=== PATIENT | female | born 1965 | race Caucasian/White ===

== ENCOUNTER 2016-06-24 10:53 | Inpatient (IN) | payer BC ==
[~2016-06-24] VITALS: Ht 157.5 cm; Wt 99.5 kg
[~2016-06-24 10:53] MED LIST: ACET325T33 PO; APIX5TAB PO; APR50 PO; ASPI81TA3 PO; ATOR20TA38 PO; CLON0.2T12 PO; DOCU-144 PO; FURO-109 PO; GABA300C PO; METO-407 PO; NOVO3I SC; PANT40TA4 PO; PARO20TA58 PO; REPA1TAB14 PO; SEVE800T10 PO; SITA50TA2 PO
[2016-06-24 11:00] VITALS: Ht 157.5 cm; Wt 99.5 kg
[2016-06-24] MEDS ORDERED: SOD CHLORIDE 0.9% 1,000 ML IV STA (11:18)
[2016-06-24 11:48] LABS: BASOPHIL # 0.1 10^3/ul (0.0-0.1); BASOPHILS % 0.8 % (0.0-2.0); CONDITION 1; EOSINOPHILS # 0.5 10^3/ul (0.0-0.5); EOSINOPHILS % 5.1 % (0.0-7.0); HEMATOCRIT 32.2 % (37.0-47.0); HEMOGLOBIN 10.9 g/dl (12.0-16.0); LYMPHOCYTES # 1.9 10^3/ul (0.8-2.9); LYMPHOCYTES % 20.4 % (15.0-51.0); MEAN CORPUSCULAR HEMOGLOBIN 30.4 pg (29.0-33.0); MEAN CORPUSCULAR HGB CONC 33.8 g/dl (32.0-37.0); MEAN CORPUSCULAR VOLUME 89.7 fl (82.0-101.0); MEAN PLATELET VOLUME 7.1 fl (7.4-10.4); MONOCYTE # 0.5 10^3/ul (0.3-0.9); MONOCYTES % 5.8 % (0.0-11.0); NEUTROPHIL # 6.4 10^3/ul (1.6-7.5); NEUTROPHILS % 67.9 % (39.0-77.0); PLATELET COUNT 318 10^3/UL (140-440); RED BLOOD COUNT 3.59 10^6/ul (4.20-5.40); RED CELL DISTRIBUTION WIDTH 13.9 % (11.5-14.5); UNCORRECTED WBC 9.4 10^3/ul (4.8-10.8); WHITE BLOOD COUNT 9.4 10^3/ul (4.8-10.8)
[2016-06-24 11:52] LABS: ADD UMIC YES; URINE BILIRUBIN (Dip) NEGATIVE (NEGATIVE); URINE BLOOD (Dip) 2+ (NEGATIVE); URINE COLOR LT. YELLOW (YELLOW); URINE KETONES (Dip) NEGATIVE (NEGATIVE); URINE LEUKOCYTE ESTERASE (Dip) TRACE (NEGATIVE); URINE NITRITE (Dip) NEGATIVE (NEGATIVE); URINE TOTAL PROTEIN (Dip) 4+ (NEGATIVE); URINE UROBILINOGEN (Dip) 0.2 E.U./dL (0.1-1.0)
[2016-06-24 11:59] LABS: ALBUMIN 3.6 g/dl (3.3-4.9); CHLORIDE 109 mmol/L (97-110)
[2016-06-24 12:00] LABS: POTASSIUM 4.7 mmol/L (3.5-5.1); SODIUM 143 mmol/L (135-144)
[2016-06-24 12:02] LABS: ALBUMIN/GLOBULIN RATIO 1.24; ANION GAP 16 (8-16); BILIRUBIN,INDIRECT 0.1 mg/dl (0-1.1); BILIRUBIN,TOTAL 0.1 mg/dl (0.2-1.3); CARBON DIOXIDE 23 mmol/L (21-31); CREATININE 3.75 mg/dl (0.44-1.00); TOTAL PROTEIN 6.5 g/dl (6.1-8.1)
[2016-06-24 12:03] LABS: ALANINE AMINOTRANSFERASE 32 IU/L (13-69); ALKALINE PHOSPHATASE 115 IU/L (42-121); ASPARTATE AMINO TRANSFERASE 26 IU/L (15-46); BLOOD UREA NITROGEN 59 mg/dl (7-20); CALCIUM 8.8 mg/dl (8.4-10.2); GLUCOSE 127 mg/dl (70-220)
[2016-06-24] MEDS ORDERED: ATOR80TA75 PO (12:11)
[2016-06-24] MEDS ORDERED: ZOLP5TAB6 PO (12:15)
--- NOTE | 2016-06-24 12:15 | RADRPT ---
PROCEDURE: XR Chest. CLINICAL INDICATION: Abdominal pain TECHNIQUE: Chest PA COMPARISON: 09/11/2015 FINDINGS: The mediastinal structures are unremarkable. There is calcification of the thoracic aorta (consiste nt with atherosclerosis). The heart is normal in size and configuration. The pulmonary vascularity is normal. The lung vargas are unremarkable. No consolidation is identified. The pleural spaces are unremarkable. The osseous structures are unremarkable. IMPRESSION: Calcification of the thoracic aorta (consistent with atherosclerosis). No evidence for active cardiopulmonary disease. RPTAT: HGDB .Joel Alicia MD, MD Date Time Electronically viewed and signed by .Joel Alicia MD, on 06/24/2016 12:15 .B/
[2016-06-24 12:16] LABS: TROPONIN-I < 0.012 ng/ml (0.00-0.12)
[2016-06-24] MEDS ORDERED: SERT50TA PO (12:16)
[2016-06-24] MEDS ORDERED: TOLT2TAB5 PO (12:16)
[2016-06-24] MEDS ORDERED: APR50 PO (12:23)
[2016-06-24] MEDS ORDERED: NICARDipine HCL 30 MG CAPSULE PO ONE (13:00)
--- NOTE | 2016-06-24 14:17 | ERA ---
ER Documentation Chief Complaint Date/Time DATE: 06/24/16 TIME: 14:14 Chief Complaint send for further labs abn bun and creatini , feels tired HPI 50-year-old female who is sent for evaluation of elevated creatinine. The patient has no complaints. She states a history of uncontrolled hypertension. No prior renal disease though her EMR reports creatinine in the 2-1/2 range. A prescription from the primary provider shows most recent creatinine less than 1. The patient describes generalized malaise, she states normal urine output she denies any fevers chills chest pain or shortness of breath no abdominal pain. No headache or vision changes. ROS All systems reviewed and are negative except as per history of present illness. Medications Home Meds Active Scripts Sitagliptin* (Januvia*) 50 Mg Tab, 50 MG PO DAILY for 30 Days, TAB Prov:REGCHAMP LERMA 09/06/15 Sevelamer Hcl* (Renagel*) 800 Mg Tab, 800 MG PO WITH MEALS for 30 Days, TAB Prov:REGCHAMP LERMA 09/06/15 Repaglinide* (Prandin*) 1 Mg Tab, 0.5 MG PO AC MEALS for 30 Days, TAB Prov:REGCHAMP LERMA 09/06/15 Pantoprazole* (Pantoprazole*) 40 Mg Tabec, 40 MG PO DAILY@06 for 30 Days Prov:CHAMP PETER 09/06/15 Metoprolol Tartrate* (Lopressor*) 100 Mg Tab, 100 MG PO BID for 30 Days, TAB Prov:REGCHAMP LERMA 09/06/15 Gabapentin* (Neurontin*) 300 Mg Cap, 300 MG PO TID for 30 Days, CAP Prov:REGCHAMP LERMA 09/06/15 Furosemide* (Lasix*) 40 Mg Tab, 40 MG PO 06,12,18 for 30 Days, TAB Prov:REGCHAMP LERMA 09/06/15 Apixaban* (Eliquis*) 5 Mg Tablet, 5 MG PO BID for 30 Days, TAB Prov:REGCHAMP LERMA 09/06/15 Aspirin (Aspirin) 81 Mg Chew, 162 MG PO DAILY for 30 Days, TAB Prov:REGCHAMP LERMA 09/06/15 Reported Medications Hydralazine Hcl* (Hydralazine Hcl*) 50 Mg Tab, 50 MG PO TID, #90 TAB 06/24/16 Tolterodine Tartrate* (Tolterodine Tartrate*) 2 Mg Tablet, 2 MG PO BID, #60 TAB 06/24/16 Sertraline Hcl* (Zoloft*) 50 Mg Tablet, 50 MG PO DAILY, #30 TAB 06/24/16 Zolpidem Tartrate* (Zolpidem Tartrate*) 5 Mg Tablet, 5 MG PO QHS Y for INSOMNIA , #30 TAB 06/24/16 Atorvastatin* (Atorvastatin*) 80 Mg Tablet, 80 MG PO QHS, #30 TAB 06/24/16 Discontinued Reported Medications Docusate Sodium* (Colace*) 100 Mg Capsule, 100 MG PO TID, #60 CAP 09/04/15 Discontinued Scripts Acetaminophen* (Tylenol*) 325 Mg Tab, 650 MG PO Q6H Y for PAIN LEVEL 1-3 OR FEVER for 30 Days, TAB Prov:REGCHAMP LERMA 09/06/15 Paroxetine Hcl* (Paxil*) 20 Mg Tab, 40 MG PO DAILY for 30 Days, TAB Prov:CHAMP PETER 09/06/15 Insulin Aspart* (Novolog Insulin Pen*) 100 Unit/Ml Soln, 0 UNIT SC WITH MEALS BEDTIME for 30 Days Prov:CHAMP PETER 09/06/15 Insulin Aspart* (Novolog Insulin Pen*) 100 Unit/Ml Soln, 3 UNIT SC WITH MEALS for 30 Days Prov:CHAMP PETER 09/06/15 Hydralazine Hcl* (Hydralazine Hcl*) 50 Mg Tab, 50 MG PO QID for 30 Days, TAB Prov:CHAMP PETER 09/06/15 Clonidine Hcl* (Catapres*) 0.2 Mg Tab, 0.2 MG PO Q4H Y for sbp>160 for 30 Days, TAB Prov:REGIDOCHAMP Mason 09/06/15 Atorvastatin Calcium* (Atorvastatin Calcium*) 20 Mg Tab, 80 MG PO HS for 30 Days , TAB Prov:CHAMP PETER 09/06/15 Allergies Allergies: Coded Allergies: codeine (Verified Allergy, Mild, 06/24/16) PMhx/Soc History of Surgery: No Anesthesia Reaction: No Hx 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 Disorder: Yes (stroke. ANXIETY. DEPRESSION. ) Hx Respiratory Disorders: Yes (PNEUMONIA. ASTHMA) Hx Cardiac Disorders: Yes (HTN. HYPERLIPIDEMIA. OH. SVT. CAD) Hx Psychiatric Problems: No Hx Alcohol Use: No Hx Substance Use: No Hx Tobacco Use: No Smoking Status: Never smoker FmHx Family History: No diabetes Physical Exam Vitals Vital Signs Date Time Temp Pulse Resp B/P Pulse Ox O2 Delivery O2 Flow Rate FiO2 06/24/16 13:49 139/71 06/24/16 12:40 98.1 67 18 224/97 99 Room Air 06/24/16 11:00 98.1 67 20 213/93 99 Physical Exam General: Well developed, well nourished, no acute distress Head: Normocephalic, atraumatic. Eyes: Pupils equally reactive, EOM intact ENT: Moist mucous membranes Neck: Supple, no lymphadenopathy Respiratory: Lungs clear bilaterally, no distress Cardiovascular: RRR, no murmurs, rubs, or gallops Abdominal: Soft, non-tender, non-distended, no peritoneal signs : Deferred MSK: No edema, no unilateral swelling, 5/5 strength Neurologic: Alert and oriented, moving all extremities, normal speech, no focal weakness, no cerebellar signs Skin: No rash Psych: Normal mood Result Diagram: 06/24/16 1125 06/24/16 1125 Results 24 hrs Laboratory Tests Test 06/24/16 11:25 Alanine Aminotransferase (ALT/SGPT) 32IU/L Albumin 3.6g/dl Albumin/Globulin Ratio 1.24 Alkaline Phosphatase 115IU/L Anion Gap 16 Aspartate Amino Transf (AST/SGOT) 26IU/L Basophils # 0.110^3/ul Basophils % 0.8% Blood Morphology Comment Blood Urea Nitrogen 59mg/dl Calcium Level 8.8mg/dl Carbon Dioxide Level 23mmol/L Chloride Level 109mmol/L Creatinine 3.75mg/dl Direct Bilirubin 0.00mg/dl Eosinophils # 0.510^3/ul Eosinophils % 5.1% Globulin 2.90g/dl Glucose Level 127mg/dl Hematocrit 32.2% Hemoglobin 10.9g/dl Indirect Bilirubin 0.1mg/dl Lipase 108U/L Lymphocytes # 1.910^3/ul Lymphocytes % 20.4% Mean Corpuscular Hemoglobin 30.4pg Mean Corpuscular Hemoglobin Concent 33.8g/dl Mean Corpuscular Volume 89.7fl Mean Platelet Volume 7.1fl Monocytes # 0.510^3/ul Monocytes % 5.8% Neutrophils # 6.410^3/ul Neutrophils % 67.9% Nucleated Red Blood Cells # 0.010^3/ul Nucleated Red Blood Cells % 0.0/100WBC Platelet Count 01803^3/UL Potassium Level 4.7mmol/L Red Blood Count 3.5910^6/ul Red Cell Distribution Width 13.9% Sodium Level 143mmol/L Total Bilirubin 0.1mg/dl Total Protein 6.5g/dl Troponin I < 0.012ng/ml Urine Bilirubin NEGATIVE Urine Clarity CLEAR Urine Color LT. YELLOW Urine Epithelial Cells RARE Urine Glucose 0.1%% Urine Hemoglobin 2+ Urine Ketones NEGATIVE Urine Leukocyte Esterase TRACE Urine Microscopic RBC 5-10/HPF Urine Microscopic WBC 2-5/HPF Urine Nitrite NEGATIVE Urine Specific [place] 1.020 Urine Total Protein 4+ Urine Urobilinogen 0.2 E.U./dL Urine pH 6.0 White Blood Count 9.410^3/ul Current Medications Medications (Trade) Dose Ordered Sig/Zenobia Route PRN Reason Start Time Stop Time Status Last Admin Dose Admin Sodium Chloride (NS) 1,000 ml @ 1,000 mls/hr Q1H STAT IV 06/24/16 11:18 06/24/16 12:17 DC 06/24/16 11:58 Nicardipine HCl (Cardene) 30 mg ONCE ONCE PO 06/24/16 13:00 06/24/16 13:01 DC 06/24/16 12:48 Ondansetron HCl (Zofran Inj) 4 mg BRIDGE ORDER PRN IV NAUSEA AND/OR VOMITING 06/24/16 14:30 06/25/16 14:29 Acetaminophen (Tylenol Tab) 650 mg ER BRIDGE PRN PO MILD PAIN/FEVER 06/24/16 14:30 06/25/16 14:29 Procedures/MDM EKG, MONITORS, & DIAGNOSTIC IMAGING: EKG: I reviewed and interpreted a 12-lead EKG. Rhythm: Normal sinus rhythm Ectopy: None Intervals: No abnormalities ST segments: No elevations or depressions T waves: No contiguous inversions Chest x-ray: I reviewed and interpreted a 1 view of the chest Mediastinum: No enlargement Cardiac silhouette: No cardiomegaly Airspace: Clear lung vargas bilaterally without evidence of pneumothorax Bones: No evidence of fracture LAB INTERPRETATION: Elevated creatinine and BUN consistent with intrarenal renal failure negative troponin MEDICAL DECISION MAKING: The patient presents with elevated creatinine. She also has hypertension, she is mostly asymptomatic. This is very consistent with likely hypertensive renal disease. The patient will benefit from inpatient hospitalization, fluid resuscitation, blood pressure control and medication optimization. She has no hyperkalemia no volume overload and does not appear to require emergent dialysis. ER COURSE: Blood pressure reduction obtained with Cardene orally. The patient remains asymptomatic. The patient does have evidence of hypertensive renal disease with proteinuria. I kept the patient and/or family informed of laboratory and diagnostic imaging results throughout the emergency room course. DISPOSITION PLAN: She is stable for medical surgical admission given no chest pain, no endorgan dysfunction of the heart. CONSULTATION: Accepting care team and consultations: I discussed the current laboratory data, diagnostic imaging and emergency care provided. Admitting team: Dr. Andrade Admitting team indication: Insurance directed Departure Diagnosis: Primary Impression: Acute renal failure Qualified Code: N17.9 - Acute renal failure, unspecified acute renal failure type Additional Impression: Hypertensive urgency Condition: Stable KRISTEN PRINCE MD Jun 24, 2016 14:17
[2016-06-24] MEDS ORDERED: ONDANSETRON 4 MG INJ IV PRN ×2 (14:30→15:00)
[2016-06-24] MEDS ORDERED: ACETAMINOPHEN 325 MG TAB PO PRN ×2 (14:30→15:00)
[2016-06-24] MEDS ORDERED: morphine 2 MG INJ IV PRN (15:00)
[2016-06-24] MEDS ORDERED: MAGNESIUM HYDROXIDE 30ML CUP PO PRN (15:00)
[2016-06-24] MEDS ORDERED: ZOLPIDEM 5 MG TAB PO PRN (15:00)
[2016-06-24] MEDS ORDERED: NA PHOSPHATE/BIPHOS 133 ML ENEMA PR PRN (15:00)
[2016-06-24] MEDS ORDERED: DOCUSATE SODIUM 100 MG CAP PO PRN (15:00)
[2016-06-24] MEDS ORDERED: NITROGLYCERIN (SL) 0.4 MG TAB SL PRN (15:00)
[2016-06-24] MEDS ORDERED: NACL 0.9% 3 ML SYG IV SCH (15:00)
[2016-06-24] MEDS ORDERED: ALBUTEROL/IPRATROPIUM (NEB) 3 ML AMP HHN PRN (15:00)
[2016-06-24] MEDS ORDERED: LORAZEPAM 2 MG INJ IV PRN (15:00)
[2016-06-24] MEDS ORDERED: HYDROCODONE/APAP (5/325) TAB PO PRN (15:00)
[2016-06-24] MEDS: SOD CHLORIDE 0.9% 1,000 ML IV SCH (15:44)
[2016-06-24] MEDS: ASPIRIN 81 MG TAB PO SCH (15:54)
[2016-06-24] MEDS: FAMOTIDINE 20 MG TAB PO SCH (15:55)
[2016-06-24] MEDS ORDERED: HEPARIN 5,000 UNIT/0.5 ML SYG SC SCH (16:00)
[2016-06-24] MEDS: PANTOPRAZOLE (EC) 40 MG TAB PO SCH (16:09)
[2016-06-24] MEDS: hydrALAzine 20 MG INJ IV PRN (16:57)
[2016-06-24] MEDS ORDERED: GLUCOSE GEL 15 GRAM TUBE PO PRN ×2 (17:00)
[2016-06-24] MEDS ORDERED: GLUCAGON 1 MG INJ IM PRN (17:00)
[2016-06-24] MEDS ORDERED: TOLTERODINE 2 MG TAB PO SCH (17:00)
[2016-06-24] MEDS ORDERED: DEXTROSE 50% 50 ML SYRINGE IV PRN ×2 (17:00)
[2016-06-24] MEDS ORDERED: GLUCOSE GEL 15 GRAM TUBE BUCCAL PRN (17:00)
[2016-06-24 17:05] VITALS: TEMP 98.1
[2016-06-24] MEDS: SERTRALINE 50 MG TAB PO SCH (17:45)
[2016-06-24] MEDS: GABAPENTIN 300 MG CAP PO SCH (17:45)
[2016-06-24] MEDS: METOPROLOL 100 MG TAB PO SCH (17:50)
[2016-06-24] MEDS ORDERED: LABETALOL HCL 20MG INJ IV ONE (18:30)
--- NOTE | 2016-06-24 19:22 | RADRPT ---
PROCEDURE: CT Brain without contrast. CLINICAL INDICATION: Headache prior CVA TECHNIQUE: A CT of the brain was performed on a multidetector CT scanner utilizing axial sections from the skull base through the vertex without contrast. Images were reviewed on a high-resolution [employer] workstation. Exam CTDI = 41.88 mGy and the DLP = 720.23 mGy-cm. One or more of the following dose reduction techniques were used: - Automated exposure control. - Adjustment of the mA and/or kV according to patient size. - Use of iterative reconstruction technique. COMPARISON: 09/03/2015 CT and MRI FINDINGS: Mild diffuse cerebral and cerebellar atrophy is present. There is proportionate dilatation of the v entricular system and sulci in a symmetric fashion. There is prominence of the extraaxial spaces sec ondary to atrophy. There is no evidence of intracranial hemorrhage, mass effect or midline shift. Th e panchal/white matter differentiation is preserved. Minimal patchy diffuse deep white matter microangi opathic ischemic change is seen. Old left basal ganglia infarct. The osseous structures and visuali zed paranasal sinuses are unremarkable. Minimal vascular calcifications are identified. IMPRESSION: 1. Mild atrophy.. 2. Minimal microangiopathic ischemic change. 3. Old left basal ganglia infarct evolved since the previous study. RPTAT: HJES .Kahlil Orr MD, MD Date Time Electronically viewed and signed by .Kahlil Orr MD, MD on 06/24/2016 19:21 .S/
[2016-06-24] MEDS: INSULIN ASPART [NOVOLOG] 3 ML PEN SC SCH ×2 (20:00→20:31)
[2016-06-24 20:08] VITALS: BP 216/92; RESP 16
[2016-06-24] MEDS: ATORVASTATIN 80 MG TAB PO SCH (20:23)
[2016-06-24] MEDS: APIXABAN 5 MG TABLET PO SCH (20:23)
[2016-06-25] VITALS (7 sets, daily range): BP systolic 116–191; BP diastolic 56–86; PULSE 67–68; RESP 19–20
[2016-06-25] MEDS: GABAPENTIN 300 MG CAP PO SCH ×4 (00:31→20:32)
[2016-06-25] MEDS: FAMOTIDINE 20 MG TAB PO SCH ×3 (00:31→20:31)
[2016-06-25] MEDS: INSULIN ASPART [NOVOLOG] 3 ML PEN SC SCH ×5 (01:00→20:30)
[2016-06-25] MEDS: ACCUCHECK XX SCH (01:56)
[2016-06-25 05:39] LABS: CHOL/HDL RATIO 2.8 RATIO
[2016-06-25] MEDS: PANTOPRAZOLE (EC) 40 MG TAB PO SCH (05:48)
[2016-06-25] MEDS: SOD CHLORIDE 0.9% 1,000 ML IV SCH ×3 (05:49→22:28)
[2016-06-25 06:09] LABS: THYROID STIMULATING HORMONE 1.54 MIU/L (0.465-4.680)
--- NOTE | 2016-06-25 07:03 | HP ---
DATE OF ADMISSION: 06/24/2016 CHIEF COMPLAINT: Sent in by primary care doctor for abnormal labs. HISTORY OF PRESENT ILLNESS: A 50-year-old female with past medical history of diabetes type 2, hype rtension, high cholesterol, depression, anxiety, coronary artery disease, prior DVTs, asthma, CKD an d prior stroke, who was sent in by her primary care doctor or her renal doctor, she is unclear. Tanika arently she had a blood test performed 5 days ago for creatinine levels and it was abnormal today in the 2 or 2.5 range. She followed up with the doctor today, and he became concerned and told her to come to the ER. She has been having some headache symptoms as well and some mild shortness of mil[place] th. No dizziness or loss of consciousness. No vision changes. No chest pain. No productive cough . No diarrhea or constipation. No fevers or chills. No nausea or vomiting. No upper or lower GI bleeding. When she came in today, her creatinine was 3.75 and her BUN was 59, they were elevated. Apparently, her baseline is around the low 2 range. When the patient came in, she was also found wi th hypertensive urgency and was given Cardene in the ER as well. PAST MEDICAL HISTORY: As stated above. ALLERGIES: CODEINE. MEDICATIONS AT HOME: Include: 1. Eliquis 5 mg b.i.d. 2. Atorvastatin 80 mg at bedtime. 3. Hydralazine 50 mg t.i.d. 4. Lopressor 100 mg b.i.d. 5. Aspirin 162 mg daily. 6. Neurontin 300 mg t.i.d. 7. Zoloft 50 mg daily. 8. Ambien 5 mg at bedtime p.r.n. 9. Lasix 40 mg. 10. Renagel 800 mg with meals. 11. Protonix 40 mg daily. 12. Prandin 0.5 mg with meals. 13. Januvia 50 mg daily. 14. Detrol 2 mg b.i.d. PAST SURGICAL HISTORY: She had some kind of nasal repair surgery age 14. FAMILY HISTORY: Noncontributory. SOCIAL HISTORY: Negative for smoking, drinking, or IV drug abuse. PHYSICAL EXAMINATION: VITAL SIGNS: Today, temperature max 98.1, pulse 67, respirations 18 to 20, blood pressure was 224/9 7 now to 139/71. GENERAL: The patient is sitting up in bed, answering questions appropriately, slightly lethargic bu t alert. HEENT: Pupils equal, round, and react to light. Extraocular muscles intact. NECK: Supple, no thyromegaly. LUNGS: Clear to auscultation bilaterally. CARDIOVASCULAR: S1, S2 heard. No rubs or gallops. ABDOMEN: Soft, nontender, nondistended. Normal bowel sounds. No rebound or guarding. MUSCULOSKELETAL: No lower extremity edema bilaterally. NEUROLOGIC: No focal deficits. LABORATORY DATA: CBC is completely normal. Again, the basic metabolic panel is normal except the B UN is 59 and creatinine is 3.75. The LFTs are normal. Lipase is normal. The UA shows trace leukoc yte esterase positive, negative nitrites. There was a chest x-ray performed that shows no evidence of any active cardiopulmonary disease. ASSESSMENT AND PLAN: A 50-year-old female coming in with abnormal lab values and a headache with s igns of acute on chronic renal insufficiency and hypertensive urgency. 1. Renal insufficiency. Again elevated creatinine levels. We will get a renal consult. Put her o n aggressive IV fluid management. Check TSH, A1c, lipid panel. Monitor ins and outs. Continue Scout agel as well. 2. Headache, most likely secondary to hypertensive urgency. Because of her history of prior stroke , we will get a head CT, although there are no focal deficits as well, just to rule out for any abno rmalities there. 4. For hypertensive urgency, we will put her on p.r.n. hydralazine greater than 160 systolic and al so clonidine, and continue her home blood pressure medicines. Get a 2D echocardiogram as well. 5. History of type 2 diabetes. We will check an A1c and put her on sliding scale insulin as well. 6. History of deep venous thrombosis. Apparently, the patient has had blood clots within the last year. For now continue Eliquis. 7. History of anxiety and depression. She is on Ativan p.r.n. 8. High cholesterol. Check lipid panel. 9. Prior stroke. No present issues. Continue aspirin for now. 10. Gastrointestinal prophylaxis. She is on an H2 jayda. 11. Deep venous thrombosis prophylaxis. We will put her on sequential compression devices. Dictated By: MILADIS CAMPOS Conf#: [id number] [facility]#: [id number]
[2016-06-25 07:07] LABS: BASOPHILS % 0.6 % (0.0-2.0); EOSINOPHILS # 0.1 10^3/ul (0.0-0.5); EOSINOPHILS % 1.4 % (0.0-7.0); HEMATOCRIT 29.3 % (37.0-47.0); HEMOGLOBIN 9.9 g/dl (12.0-16.0); LYMPHOCYTES # 1.7 10^3/ul (0.8-2.9); LYMPHOCYTES % 22.6 % (15.0-51.0); MEAN CORPUSCULAR HEMOGLOBIN 30.5 pg (29.0-33.0); MEAN CORPUSCULAR VOLUME 89.7 fl (82.0-101.0); MEAN PLATELET VOLUME 7.4 fl (7.4-10.4); MONOCYTE # 0.5 10^3/ul (0.3-0.9); MONOCYTES % 6.6 % (0.0-11.0); NEUTROPHIL # 5.2 10^3/ul (1.6-7.5); NEUTROPHILS % 68.8 % (39.0-77.0); PLATELET COUNT 292 10^3/UL (140-440); RED BLOOD COUNT 3.26 10^6/ul (4.20-5.40); RED CELL DISTRIBUTION WIDTH 14.4 % (11.5-14.5); UNCORRECTED WBC 7.6 10^3/ul (4.8-10.8); WHITE BLOOD COUNT 7.6 10^3/ul (4.8-10.8)
[2016-06-25 07:09] LABS: CONDITION 1
[2016-06-25 07:12] LABS: POTASSIUM 4.8 mmol/L (3.5-5.1)
[2016-06-25 07:14] LABS: CREATININE 3.76 mg/dl (0.44-1.00)
[2016-06-25 07:15] LABS: CALCIUM 8.7 mg/dl (8.4-10.2); PHOSPHORUS 4.8 mg/dl (2.5-4.9)
[2016-06-25 07:16] LABS: MAGNESIUM 1.8 mg/dl (1.7-2.5)
[2016-06-25] MEDS: SEVELAMER 800 MG TAB PO SCH ×3 (08:39→17:02)
[2016-06-25] MEDS: ASPIRIN 81 MG TAB PO SCH (08:39)
[2016-06-25] MEDS: SERTRALINE 50 MG TAB PO SCH (08:39)
[2016-06-25] MEDS: APIXABAN 5 MG TABLET PO SCH ×2 (08:39→20:32)
[2016-06-25] MEDS: METOPROLOL 100 MG TAB PO SCH ×2 (08:40→20:32)
--- NOTE | 2016-06-25 14:55 | RADRPT ---
Echocardiogram Report Patient Name: AC MOFFETT Gender: Female Date: 1965 Study Date: 25-Jun-2016 Technical Training Manager: Flakita Lamas [facility] Location: 2260 Ref. Physician: MILADIS SHARP Quality: Good Procedures: Transthoracic echocardiogram with complete 2D, M-Mode, and doppler examination. Indications: Chest Pain. 2D/M Mode Doppler Measurement Value Normal Ranges Measurement Value Normal Ranges LVIDd 2D 5.2 3.5 - 5.6 cm AV Peak Bertin 1.8 m/sec LVIDs 2D 3.2 2.1 - 4.1 cm AV Peak PG 13.6 mmHg LVPWd 2D 1.2 0.6 - 1.1 cm LVOT Peak Bertin 1.0 m/sec IVSd 2D 1.3 0.6 - 1.1 cm LVOT Peak PG 3.8 mmHg AoR Diam 2D 2.8 2.0 - 3.7 cm MV E Peak Bertin 0.9 m/sec EDV 2D 130.5 cm3 MV A Peak Bertin 1.0 m/sec ESV 2D 33.2 cm3 MV E/A 0.9 LA Dimen 2D 4.5 2.3 - 4.0 cm MV Decel Time 207 msec MV Decel [place] 4 MV E/A 0.9 TR Peak Bertin 2.3 m/sec TR Peak PG 20.6 mmHg RVSP 24.0 mmHg Findings Left Ventricle: Normal left ventricular systolic function. Normal left ventricular cavity size. Mild concentric left ventricular hypertrophy. Ejection fraction is visually estimated at 65 %. Tissue Doppler/Mitral Doppler indices are consistent with impaired relaxation (Stage I diastolic dysfunction). Right Ventricle: Normal right ventricular size. Normal right ventricular systolic function. Left Atrium: There is mild enlargement of left atrium. LA Dimension4.50 cm. Right Atrium: There is mild enlargement of right atrium. Mitral Valve: Mitral valve leaflets appear mildly thickened. Trace mitral regurgitation. Aortic Valve: Normal appearance of the aortic valve. No significant aortic stenosis or insufficiency. Tricuspid Valve: Normal appearance of the tricuspid valve. Estimated peak PA systolic pressure 24 mmHg. There is trace tricuspid regurgitation. Pulmonic Valve: Normal pulmonic valve appearance. Pericardium: Normal pericardium with no significant pericardial effusion. Aorta: Normal aortic root. IVC: Normal size and normal respiratory collapse consistent with normal right atrial pressure. Conclusions 1.Normal left ventricular systolic function. Normal left ventricular cavity size. Mild concentric left ventricular hypertrophy. Ejection fraction is visually estimated at 65 %. Tissue Doppler/Mitral Doppler indices are consistent with impaired relaxation (Stage I diastolic dysfunction). 2.No significant valvular stenosis or regurgitation seen. 3.Estimated peak PA systolic pressure 24 mmHg based on RA pressure of 3mmHg. Electronically Signed By: Fili Lee 25-Jun-2016 14:54:44 -0800 Patient Name: AC MOFFETT Study Date: 25-Jun-2016 [id number]
--- NOTE | 2016-06-25 14:57 | PN ---
Date/Time of Note Date/Time of Note DATE: 06/25/16 TIME: 14:48 Assessment/Plan VTE Prophylaxis VTE Prophylaxis Intervention: SCD's Lines/Catheters IV C[facility]ter Type [facility]from [facility]): [place] Assessment/Plan Chief Complaint/Hosp Course ASSESSMENT AND PLAN: A 50-year-old female coming in with abnormal lab values and a headache with signs of acute on chronic renal insufficiency and hypertensive urgency. 1. Renal insufficiency. Again elevated creatinine levels. - f/u renal consult. - continue IV fluid management. - f/u TSH, A1c, lipid panel. Monitor ins and outs. - Continue Renagel as well. 2. Headache, most likely secondary to hypertensive urgency. Head CT neg for acute findings. monitor 4. For hypertensive urgency - improved -- Continue PRN hydralazine greater than 160 systolic and also clonidine - continue her home blood pressure medicines. - f/u 2D echocardiogram as well. 5. History of type 2 diabetes - f/u A1c and put her on sliding scale insulin as well. 6. History of deep venous thrombosis. Apparently, the patient has had blood clots within the last year. For now continue Eliquis. 7. History of anxiety and depression. She is on Ativan p.r.n. 8. High cholesterol - f/u lipid panel. 9. Prior stroke. No present issues. Continue aspirin for now. 10. Gastrointestinal prophylaxis - H2 jayda. 11. Deep venous thrombosis prophylaxis - Eliquis Problems: Subjective 24 Hr Interval Summary Free Text/Dictation Pt working with PT. Awaiting to be seen by renal team. Exam/Review of Systems Vital Signs Vitals Vital Signs Date Time Temp Pulse Resp B/P Pulse Ox O2 Delivery O2 Flow Rate FiO2 06/25/16 11:38 67 140/63 06/25/16 07:30 98.6 20 96 06/24/16 18:51 Room Air Intake and Output 06/24/16 06/24/16 06/25/16 15:00 23:00 07:00 Intake Total 1000 ml 200 ml Balance 1000 ml 200 ml Exam GENERAL: The patient is sitting up in bed, answering questions appropriately, working with PT HEENT: Pupils equal, round, and react to light. Extraocular muscles intact. NECK: Supple, no thyromegaly. LUNGS: Clear to auscultation bilaterally. CARDIOVASCULAR: S1, S2 heard. No rubs or gallops. ABDOMEN: Soft, nontender, nondistended. Normal bowel sounds. No rebound or guarding. MUSCULOSKELETAL: No lower extremity edema bilaterally. NEUROLOGIC: No focal deficits. Results Result Diagram: 06/25/1642106/25/16421 Results 24 hrs Laboratory Tests Test 06/24/16 20:30 06/25/16 04:22 06/25/16 07:44 06/25/16 11:32 Bedside Glucose 149 119 124 Anion Gap 17 H Basophils # 0.0 Basophils % 0.6 Blood Morphology Comment Blood Urea Nitrogen 55 H Calcium Level 8.7 Carbon Dioxide Level 22 Chloride Level 112 H Cholesterol Level 166 Cholesterol/HDL Ratio 2.8 Creatinine 3.76 H Eosinophils # 0.1 Eosinophils % 1.4 Glucose Level 119 HDL Cholesterol 59 Hematocrit 29.3 L Hemoglobin 9.9 L Hemoglobin A1c 5.8 LDL Cholesterol, Calculated 72 Lymphocytes # 1.7 Lymphocytes % 22.6 Magnesium Level 1.8 Mean Corpuscular Hemoglobin 30.5 Mean Corpuscular Hemoglobin Concent 34.0 Mean Corpuscular Volume 89.7 Mean Platelet Volume 7.4 Monocytes # 0.5 Monocytes % 6.6 Neutrophils # 5.2 Neutrophils % 68.8 Nucleated Red Blood Cells # 0.0 Nucleated Red Blood Cells % 0.0 Phosphorus Level 4.8 Platelet Count 292 Potassium Level 4.8 Red Blood Count 3.26 L Red Cell Distribution Width 14.4 Sodium Level 146 H Thyroid Stimulating Hormone (TSH) 1.540 Triglycerides Level 174 H White Blood Count 7.6 Medications Medications Current Medications Ondansetron HCl (Zofran Inj) 4 mg Q6H PRN IV NAUSEA AND/OR VOMITING Last administered on 06/24/16 20:20; Admin Dose 4 MG; Start 06/24/16 at 15:00 Acetaminophen (Tylenol Tab) 650 mg Q6H PRN PO PAIN LEVEL 1-3 OR FEVER; Start at 15:00 Acetaminophen/ Hydrocodone Bitart ([place] (5/325)) 1 tab Q6H PRN PO MODERATE PAIN LEVEL 4-6; Start 06/24/16 at 15:00 Morphine Sulfate (morphine) 2 mg Q4H PRN IV SEVERE PAIN LEVEL 7-10 Last administered on 06/24/16 16:57; Admin Dose 2 MG; Start 06/24/16 at 15:00 Docusate Sodium (Colace) 100 mg Q12H PRN PO CONSTIPATION; Start 06/24/16 at 15: 00 Magnesium Hydroxide (Milk Of Mag) 30 ml DAILY PRN PO CONSTIPATION; Start at 15:00 Sodium Biphosphate/ Sodium Phosphate (Fleet Enema) 133 ml DAILY PRN [place] CONSTIPATION; Start 06/24/16 at 15:00 Famotidine (Pepcid) 20 mg Q12 PO Last administered on 06/25/16 08:39; Admin Dose 20 MG; Start 06/24/16 at 16:00 Lorazepam 0.5 mg 0.5 mg Q6H PRN IV ANXIETY; Start 06/24/16 at 15:00 Sodium Chloride (NS) 1,000 ml @ 100 mls/hr Q10H IV Last administered on 05:49; Admin Dose 100 MLS/HR; Start 06/24/16 at 15:00 Hydralazine HCl (Apresoline) 10 mg Q6H PRN IV ELEVATED BLOOD PRESSURE Last administered on 06/24/16 16:57; Admin Dose 10 MG; Start 06/24/16 at 15:00 Clonidine (Catapres) 0.1 mg Q6H PRN PO ELEVATED BLOOD PRESSURE Last administered on 06/24/16 20:21; Admin Dose 0.1 MG; Start 06/24/16 at 15:00 Nitroglycerin (Nitroglycerin (Sl Tab) 0.4 Mg) 1 tab Q5M PRN SL ANGINA; Start at 15:00 Apixaban (Eliquis) 5 mg BID PO Last administered on 06/25/16 08:39; Admin Dose 5 MG; Start 06/24/16 at 21:00 Aspirin (Aspirin) 162 mg DAILY PO Last administered on 06/25/16 08:39; Admin Dose 162 MG; Start 06/24/16 at 16:00 Atorvastatin Calcium (Lipitor) 80 mg QHS PO Last administered on 06/24/16 20: 23; Admin Dose 80 MG; Start 06/24/16 at 21:00 Gabapentin (Neurontin) 300 mg TID PO Last administered on 06/25/16 13:37; Admin Dose 300 MG; Start 06/24/16 at 17:00 Hydralazine HCl (Apresoline) 50 mg TID PO Last administered on 06/25/16 13:39 ; Admin Dose 50 MG; Start 06/24/16 at 17:00 Metoprolol Tartrate (Lopressor) 100 mg BID PO Last administered on 06/25/16 08 :40; Admin Dose 100 MG; Start 06/24/16 at 17:00 Pantoprazole (Protonix Tab) 40 mg DAILY@06 PO Last administered on 06/25/16 05 :48; Admin Dose 40 MG; Start 06/24/16 at 16:00 Sertraline HCl (Zoloft) 50 mg DAILY PO Last administered on 06/25/16 08:39; Admin Dose 50 MG; Start 06/24/16 at 17:00 Zolpidem Tartrate (Ambien) 5 mg QHS PRN PO INSOMNIA; Start 06/24/16 at 15:00 Miscellaneous Information 1 ea NOTE XX ; Start 06/24/16 at 17:00 Glucose (Glutose) 15 gm Q15M PRN PO DECREASED GLUCOSE; Start 06/24/16 at 17:00 Glucose (Glutose) 22.5 gm Q15M PRN PO DECREASED GLUCOSE; Start 06/24/16 at 17: 00 Dextrose (D50w Syringe) 25 ml Q15M PRN IV DECREASED GLUCOSE; Start 06/24/16 at 17:00 Dextrose (D50w Syringe) 50 ml Q15M PRN IV DECREASED GLUCOSE; Start 06/24/16 at 17:00 Glucagon (Glucagen) 1 mg Q15M PRN IM DECREASED GLUCOSE; Start 06/24/16 at 17:00 Glucose (Glutose) 15 gm Q15M PRN BUCCAL DECREASED GLUCOSE; Start 06/24/16 at 17 :00 Diagnostic Test (Pha) (Accucheck) 1 ea 02 XX ; Start 06/25/16 at 02:00 MILADIS SHARP Jun 25, 2016 14:57
--- NOTE | 2016-06-25 16:15 | CONS ---
Date/Time of Note Date/Time of Note DATE: 06/25/16 TIME: 16:04 Assessment/Plan Assessment/Plan Chief Complaint/Hosp Course - CKD IV - Acute Kidney Injury - DM Nephropathy - Nephrotic Range Proteinuria - HTN - HTN Nephrosclerosis - Hyperphosphatemia - Anemia PLAN: Her renal function is almost back to baseline but she is still having a lot of nausea & vomited twice this AM Remains on IVF Will continue with 0.9%NS @ current rate Recheck her estimated proteinuria Check her Phos Check her PTH Check Urine Eosinophilia Start REGLAN BID 5 mg PO - hopefully that will resolve her Gastroparesis [ DM vs Uremic ] Check her IRON status BP much improved Continue with Hydralazine fo now THANK YOU VTherese GOLDBERG Problems: Consultation Date/Type/Reason Admit Date/Time Jun 24, 2016 at 14:03 Date of Consultation: Jun 25, 2016 Type of Consultation: NEPHROLOGY Reason for Consultation CKD IV Acute Kidney Injury Constitutional: improved, no complaints Eyes: no complaints ENT: no complaints Respiratory: no complaints Cardiovascular: no complaints Gastrointestinal: nausea Past Medical History DM CKD IV HTN ANEMIA HYPERPHOSPHATEMIA Family History Significant Family History: no pertinent family hx Social History Alcohol Use: none Smoking Status: Never smoker Drug Use: none Exam/Review of Systems Vital Signs Vitals Vital Signs Date Time Temp Pulse Resp B/P Pulse Ox O2 Delivery O2 Flow Rate FiO2 06/25/16 11:38 67 140/63 06/25/16 07:30 98.6 20 96 06/24/16 18:51 Room Air Intake and Output 06/24/16 06/24/16 06/25/16 15:00 23:00 07:00 Intake Total 1000 ml 200 ml Balance 1000 ml 200 ml Exam Constitutional: alert, oriented Psych: no complaints Head: atraumatic, hematomas, lacerations, normocephalic, other ENMT: nl external ears & nose Neck: supple Respiratory: crackles/rales Cardiovascular: regular rate and rhythm, systolic murmur Gastrointestinal: soft Results Result Diagram: 06/25/1642106/25/16421 Results 24 hrs Laboratory Tests Test 06/24/16 20:30 06/25/16 04:22 06/25/16 07:44 06/25/16 11:32 Bedside Glucose 149 119 124 Anion Gap 17 H Basophils # 0.0 Basophils % 0.6 Blood Morphology Comment Blood Urea Nitrogen 55 H Calcium Level 8.7 Carbon Dioxide Level 22 Chloride Level 112 H Cholesterol Level 166 Cholesterol/HDL Ratio 2.8 Creatinine 3.76 H Eosinophils # 0.1 Eosinophils % 1.4 Glucose Level 119 HDL Cholesterol 59 Hematocrit 29.3 L Hemoglobin 9.9 L Hemoglobin A1c 5.8 LDL Cholesterol, Calculated 72 Lymphocytes # 1.7 Lymphocytes % 22.6 Magnesium Level 1.8 Mean Corpuscular Hemoglobin 30.5 Mean Corpuscular Hemoglobin Concent 34.0 Mean Corpuscular Volume 89.7 Mean Platelet Volume 7.4 Monocytes # 0.5 Monocytes % 6.6 Neutrophils # 5.2 Neutrophils % 68.8 Nucleated Red Blood Cells # 0.0 Nucleated Red Blood Cells % 0.0 Phosphorus Level 4.8 Platelet Count 292 Potassium Level 4.8 Red Blood Count 3.26 L Red Cell Distribution Width 14.4 Sodium Level 146 H Thyroid Stimulating Hormone (TSH) 1.540 Triglycerides Level 174 H White Blood Count 7.6 Medications Medications Current Medications Ondansetron HCl (Zofran Inj) 4 mg Q6H PRN IV NAUSEA AND/OR VOMITING Last administered on 06/24/16 20:20; Admin Dose 4 MG; Start 06/24/16 at 15:00 Acetaminophen (Tylenol Tab) 650 mg Q6H PRN PO PAIN LEVEL 1-3 OR FEVER; Start at 15:00 Acetaminophen/ Hydrocodone Bitart ([place] (5/325)) 1 tab Q6H PRN PO MODERATE PAIN LEVEL 4-6; Start 06/24/16 at 15:00 Morphine Sulfate (morphine) 2 mg Q4H PRN IV SEVERE PAIN LEVEL 7-10 Last administered on 06/24/16 16:57; Admin Dose 2 MG; Start 06/24/16 at 15:00 Docusate Sodium (Colace) 100 mg Q12H PRN PO CONSTIPATION; Start 06/24/16 at 15: 00 Magnesium Hydroxide (Milk Of Mag) 30 ml DAILY PRN PO CONSTIPATION; Start at 15:00 Sodium Biphosphate/ Sodium Phosphate (Fleet Enema) 133 ml DAILY PRN [place] CONSTIPATION; Start 06/24/16 at 15:00 Famotidine (Pepcid) 20 mg Q12 PO Last administered on 06/25/16 08:39; Admin Dose 20 MG; Start 06/24/16 at 16:00 Lorazepam 0.5 mg 0.5 mg Q6H PRN IV ANXIETY; Start 06/24/16 at 15:00 Sodium Chloride (NS) 1,000 ml @ 100 mls/hr Q10H IV Last administered on 05:49; Admin Dose 100 MLS/HR; Start 06/24/16 at 15:00 Hydralazine HCl (Apresoline) 10 mg Q6H PRN IV ELEVATED BLOOD PRESSURE Last administered on 06/24/16 16:57; Admin Dose 10 MG; Start 06/24/16 at 15:00 Clonidine (Catapres) 0.1 mg Q6H PRN PO ELEVATED BLOOD PRESSURE Last administered on 06/24/16 20:21; Admin Dose 0.1 MG; Start 06/24/16 at 15:00 Nitroglycerin (Nitroglycerin (Sl Tab) 0.4 Mg) 1 tab Q5M PRN SL ANGINA; Start at 15:00 Apixaban (Eliquis) 5 mg BID PO Last administered on 06/25/16 08:39; Admin Dose 5 MG; Start 06/24/16 at 21:00 Aspirin (Aspirin) 162 mg DAILY PO Last administered on 06/25/16 08:39; Admin Dose 162 MG; Start 06/24/16 at 16:00 Atorvastatin Calcium (Lipitor) 80 mg QHS PO Last administered on 06/24/16 20: 23; Admin Dose 80 MG; Start 06/24/16 at 21:00 Gabapentin (Neurontin) 300 mg TID PO Last administered on 06/25/16 13:37; Admin Dose 300 MG; Start 06/24/16 at 17:00 Hydralazine HCl (Apresoline) 50 mg TID PO Last administered on 06/25/16 13:39 ; Admin Dose 50 MG; Start 06/24/16 at 17:00 Metoprolol Tartrate (Lopressor) 100 mg BID PO Last administered on 06/25/16 08 :40; Admin Dose 100 MG; Start 06/24/16 at 17:00 Pantoprazole (Protonix Tab) 40 mg DAILY@06 PO Last administered on 06/25/16 05 :48; Admin Dose 40 MG; Start 06/24/16 at 16:00 Sertraline HCl (Zoloft) 50 mg DAILY PO Last administered on 06/25/16 08:39; Admin Dose 50 MG; Start 06/24/16 at 17:00 Zolpidem Tartrate (Ambien) 5 mg QHS PRN PO INSOMNIA; Start 06/24/16 at 15:00 Miscellaneous Information 1 ea NOTE XX ; Start 06/24/16 at 17:00 Glucose (Glutose) 15 gm Q15M PRN PO DECREASED GLUCOSE; Start 06/24/16 at 17:00 Glucose (Glutose) 22.5 gm Q15M PRN PO DECREASED GLUCOSE; Start 06/24/16 at 17: 00 Dextrose (D50w Syringe) 25 ml Q15M PRN IV DECREASED GLUCOSE; Start 06/24/16 at 17:00 Dextrose (D50w Syringe) 50 ml Q15M PRN IV DECREASED GLUCOSE; Start 06/24/16 at 17:00 Glucagon (Glucagen) 1 mg Q15M PRN IM DECREASED GLUCOSE; Start 06/24/16 at 17:00 Glucose (Glutose) 15 gm Q15M PRN BUCCAL DECREASED GLUCOSE; Start 06/24/16 at 17 :00 Diagnostic Test (Pha) (Accucheck) 1 ea 02 XX ; Start 06/25/16 at 02:00 LETICIA GARDNER MD Jun 25, 2016 16:14
[2016-06-25 18:35] LABS: IRON 82 ug/dl (35-150)
[2016-06-25 18:45] LABS: TOTAL IRON BINDING CAPACITY 187 ug/dl (241-421)
[2016-06-25] MEDS: METOCLOPRAMIDE 5 MG TAB PO SCH (20:32)
[2016-06-25] MEDS: ATORVASTATIN 80 MG TAB PO SCH (20:32)
[2016-06-25] MEDS: hydrALAzine 20 MG INJ IV PRN (22:29)
[2016-06-26 01:51] VITALS: BP 143/68
[2016-06-26] MEDS: ACCUCHECK XX SCH (02:00)
[2016-06-26] MEDS: PANTOPRAZOLE (EC) 40 MG TAB PO SCH (06:51)
[2016-06-26] MEDS: SOD CHLORIDE 0.9% 1,000 ML IV SCH ×2 (07:00→08:10)
[2016-06-26 07:15] LABS: BASOPHILS % 0.5 % (0.0-2.0); EOSINOPHILS # 0.4 10^3/ul (0.0-0.5); EOSINOPHILS % 5.3 % (0.0-7.0); HEMATOCRIT 29.1 % (37.0-47.0); HEMOGLOBIN 9.9 g/dl (12.0-16.0); LYMPHOCYTES % 24.6 % (15.0-51.0); MEAN CORPUSCULAR HGB CONC 34.1 g/dl (32.0-37.0); MEAN CORPUSCULAR VOLUME 90.9 fl (82.0-101.0); MEAN PLATELET VOLUME 7.1 fl (7.4-10.4); MONOCYTE # 0.5 10^3/ul (0.3-0.9); MONOCYTES % 6.3 % (0.0-11.0); NEUTROPHIL # 5.3 10^3/ul (1.6-7.5); NEUTROPHILS % 63.3 % (39.0-77.0); PLATELET COUNT 281 10^3/UL (140-440); RED CELL DISTRIBUTION WIDTH 14.3 % (11.5-14.5); UNCORRECTED WBC 8.3 10^3/ul (4.8-10.8); WHITE BLOOD COUNT 8.3 10^3/ul (4.8-10.8)
[2016-06-26 07:22] LABS: CONDITION 1
[2016-06-26 07:39] LABS: POTASSIUM 4.7 mmol/L (3.5-5.1)
[2016-06-26 07:42] LABS: CREATININE 3.7 mg/dl (0.44-1.00)
[2016-06-26 07:43] LABS: CALCIUM 8.5 mg/dl (8.4-10.2)
[2016-06-26] MEDS: INSULIN ASPART [NOVOLOG] 3 ML PEN SC SCH ×2 (08:00→12:00)
[2016-06-26] MEDS: SEVELAMER 800 MG TAB PO SCH ×2 (08:29→12:17)
[2016-06-26] MEDS: SERTRALINE 50 MG TAB PO SCH (08:30)
[2016-06-26] MEDS: GABAPENTIN 300 MG CAP PO SCH ×2 (08:30→13:23)
[2016-06-26] MEDS: METOCLOPRAMIDE 5 MG TAB PO SCH (08:30)
[2016-06-26] MEDS: FAMOTIDINE 20 MG TAB PO SCH (08:30)
[2016-06-26] MEDS: APIXABAN 5 MG TABLET PO SCH (08:30)
[2016-06-26] MEDS: METOPROLOL 100 MG TAB PO SCH (08:30)
[2016-06-26] MEDS: ASPIRIN 81 MG TAB PO SCH (08:36)
[2016-06-26 08:39] VITALS: BP 159/77; RESP 17
[2016-06-26] MEDS ORDERED: AMLODIPINE 2.5 MG TAB PO SCH (14:30)
[2016-06-26] MEDS ORDERED: AMLO2.5T78 PO (14:45)
--- NOTE | 2016-06-26 14:45 | PDOCDIS ---
Discharge Instructions CONDITION Patient Condition: Stable HOME CARE INSTRUCTIONS: Diet Instructions: 2gm Na ACTIVITY: Activity Restrictions: Slowly Increase Activity FOLLOW UP/APPOINTMENTS Appointments Please take your medications and see your doctor in the clinic in 1 week. MILADIS SHARP Jun 26, 2016 14:44
[2016-06-26] MEDS ORDERED: METO5TAB11 PO (14:48)
--- NOTE | 2016-06-26 15:12 | DS ---
DATE OF ADMISSION: 06/24/2016 DATE OF DISCHARGE: 06/26/2016 HOSPITAL COURSE: A 50-year-old female originally admitted on 06/24/2016 being discharged home on . The patient came in with abnormal lab values sent in by her primary care doctor. Her cre atinine was elevated. She also had some headache symptoms and hypertensive urgency, so she was admi tted. She had blood pressure medicines adjusted and given p.r.n. medicines for better blood pressur e control. She was seen by renal team as well who recommended conservative treatment for her renal insufficiency. She had some nausea and vomiting symptoms as well that improved with antiemetics. O [place] the course of her hospital stay, her creatinine was trending down. She was also started on Regl an b.i.d. to treat her gastroparesis which was thought to be the source of her nausea and vomiting s ymptoms. She was able to ambulate and tolerate a p.o. diet, and she will be discharged home today i n improved condition. DISCHARGE MEDICATIONS: She will be sent with the following medications: 1. Norvasc 2.5 mg daily. 2. Reglan 5 mg b.i.d. 3. Eliquis 5 mg b.i.d. 4. Aspirin 162 mg daily. 5. Atorvastatin 80 mg at bedtime. 6. Lasix 40 mg as well. 7. Neurontin 300 mg t.i.d. 8. Hydralazine 50 mg t.i.d. 9. Lopressor 100 mg b.i.d. 10. Protonix 40 mg daily. 11. Prandin 0.5 mg with meals. 12. Zoloft 50 mg daily. 13. Renagel 800 mg with meals. 14. Januvia 50 mg daily. 15. Tolterodine 2 mg b.i.d. 16. Ambien 5 mg at bedtime p.r.n. FOLLOWUP: She will need to follow up with her primary care doctor in clinic in the next 1 to 2 week s. FINAL DIAGNOSES: 1. Renal insufficiency with now new baseline creatinine around the 3 range, but with adequate urine output and followed by renal team as an outpatient, on Renagel as well. 2. Headache secondary to hypertensive urgency, improved. 3. Hypertensive urgency, resolved. 4. Essential hypertension, now improved. 5. Nausea, vomiting secondary to diabetic gastroparesis, now on Reglan with improvement. 6. Hypertensive nephrosclerosis. 7. Anemia. 8. Acute on chronic renal insufficiency, resolving. 9. Diabetic nephropathy. 10. History of deep venous thrombosis in the past, on Eliquis. 11. High cholesterol. 12. History of prior stroke. Time spent discharging patient 45 minutes. Dictated By: MILADIS CAMPOS Conf#: [id number] DID#: [id number]
== END 2016-06-26 15:54 | disposition home or self-care (01) | DRG 684 ==
LOC: E/R 10:53 → PP2 14:03
PROVIDERS: ADMIT Internal Medicine; ATTEND Internal Medicine
DX: N17.9 Acute kidney failure, unspecified (principal); E11.21 Type 2 diabetes mellitus with diabetic nephropathy; K31.84 Gastroparesis; E11.43 Type 2 diabetes mellitus with diabetic autonomic (poly)neuropathy; R51 Headache; I12.9 Hypertensive chronic kidney disease with stage 1 through stage 4 chronic kidney disease, or unspecified chronic kidney disease; N18.4 Chronic kidney disease, stage 4 (severe); D64.9 Anemia, unspecified; E78.00 Pure hypercholesterolemia, unspecified; Z86.73 Personal history of transient ischemic attack (TIA), and cerebral infarction without residual deficits
CPT/HCPCS: 36415; 70450; 71010; 80048; 80053; 80061; 80306; 81001; 81003; 82962; 83036; 83540; 83690; 83735; 83970; 84100; 84155; 84439; 84443; 84484; 85025; 89190; 93005; 93306; 96372; 96374; 96375; 97162; J0360; J1815; J2270; J2405; J7030

== ENCOUNTER 2016-12-06 10:12 | Inpatient (IN) | payer BC ==
[~2016-12-06] VITALS: Ht 162.6 cm; Wt 90.7 kg
[~2016-12-06 10:12] MED LIST changes: -ACET325T33 PO; +AMLO2.5T78 PO; -APR50 PO; -ATOR20TA38 PO; +ATOR80TA75 PO; -CLON0.2T12 PO; -DOCU-144 PO; +HYDR-3672 PO; +METO5TAB11 PO; -NOVO3I SC; -PARO20TA58 PO; +SERT50TA PO; +TOLT2TAB5 PO; +ZOLP5TAB7 PO
[2016-12-06 11:15] VITALS: BP 155/72; PULSE 73; RESP 18; Ht 162.6 cm; Wt 90.7 kg
[2016-12-06] MEDS ORDERED: HYDROmorphONE 1 MG/ML SYG IV STA (14:19)
[2016-12-06] MEDS ORDERED: DIPHENHYDRAMINE 50 MG CAP PO ONE (14:30)
[2016-12-06] MEDS ORDERED: GLUCOSE GEL 15 GRAM TUBE PO PRN ×2 (16:00)
[2016-12-06] MEDS ORDERED: GLUCOSE GEL 15 GRAM TUBE BUCCAL PRN (16:00)
[2016-12-06] MEDS ORDERED: GLUCAGON 1 MG INJ IM PRN (16:00)
[2016-12-06] MEDS ORDERED: DEXTROSE 50% 50 ML SYRINGE IV PRN ×2 (16:00)
[2016-12-06] MEDS ORDERED: LACTULOSE 30ML CUP PO PRN (17:00)
[2016-12-06] MEDS ORDERED: MAGNESIUM HYDROXIDE 30ML CUP PO PRN (17:00)
[2016-12-06] MEDS ORDERED: ACETAMINOPHEN 325 MG TAB PO PRN (17:00)
[2016-12-06] MEDS ORDERED: BISACODYL 10 MG SUPP PR PRN (17:00)
[2016-12-06] MEDS: Insulin ASPART slide scale (Novolog) SC SCH ×2 (17:35→20:35)
[2016-12-06] MEDS: WARFARIN 1 MG TAB PO SCH (17:36)
[2016-12-06] MEDS: WARFARIN 2.5 MG TAB PO SCH (17:36)
[2016-12-06] MEDS: SEVELAMER 800 MG TAB PO SCH (17:49)
[2016-12-06 19:32] VITALS: BP 168/75; RESP 19
[2016-12-06] MEDS: SENNA TAB PO SCH (20:29)
[2016-12-06] MEDS: VITAMIN B COMPLEX/VIT C CAP PO SCH (20:29)
[2016-12-06] MEDS: ATORVASTATIN 80 MG TAB PO SCH (20:29)
[2016-12-06] MEDS: LOSARTAN 50 MG TAB PO SCH (20:29)
[2016-12-06] MEDS: DOCUSATE SODIUM 100 MG CAP PO SCH (20:29)
[2016-12-06] MEDS: AMLODIPINE 5 MG TAB PO SCH (20:30)
[2016-12-06] MEDS: METOPROLOL 100 MG TAB PO SCH (20:30)
[2016-12-06] MEDS ORDERED: oxyCODONE (CR) 10 MG TAB [oxyCONTIN] PO SCH (22:00)
[2016-12-06] MEDS: GABAPENTIN 400 MG CAP PO SCH (22:21)
[2016-12-06] MEDS: HYDROmorphONE 1 MG/ML SYG IV PRN (22:22)
[2016-12-06 22:30] VITALS: BP 156/77; PULSE 72
[2016-12-07] VITALS (12 sets, daily range): BP systolic 122–169; BP diastolic 62–79; PULSE 73–78; RESP 18–20
[2016-12-07] MEDS: PANTOPRAZOLE (EC) 40 MG TAB PO SCH (05:25)
[2016-12-07] MEDS: GABAPENTIN 400 MG CAP PO SCH ×3 (05:26→21:07)
[2016-12-07] MEDS: HYDROmorphONE 1 MG/ML SYG IV PRN ×4 (05:26→16:42)
[2016-12-07] MEDS: Insulin ASPART slide scale (Novolog) SC SCH ×4 (07:05→21:11)
[2016-12-07 07:12] LABS: BASOPHIL # 0.1 10^3/ul (0.0-0.1); BASOPHILS % 0.6 % (0.0-2.0); EOSINOPHILS # 0.8 10^3/ul (0.0-0.5); EOSINOPHILS % 6.9 % (0.0-7.0); LYMPHOCYTES # 2.5 10^3/ul (0.8-2.9); LYMPHOCYTES % 22.5 % (15.0-51.0); MEAN CORPUSCULAR HGB CONC 29.6 g/dl (32.0-37.0); MEAN CORPUSCULAR VOLUME 101.1 fl (82.0-101.0); MEAN PLATELET VOLUME 8.1 fl (7.4-10.4); MONOCYTE # 0.7 10^3/ul (0.3-0.9); MONOCYTES % 6.2 % (0.0-11.0); NEUTROPHIL # 7.1 10^3/ul (1.6-7.5); NEUTROPHILS % 63.2 % (39.0-77.0); PLATELET COUNT 382 10^3/UL (140-415); RED BLOOD COUNT 2.67 10^6/ul (4.20-5.40); RED CELL DISTRIBUTION WIDTH 17.2 % (11.5-14.5); WHITE BLOOD COUNT 11.2 10^3/ul (4.8-10.8)
[2016-12-07 07:28] LABS: ALBUMIN 2.7 g/dl (3.3-4.9); ALBUMIN/GLOBULIN RATIO 0.69; CALCIUM 8.3 mg/dl (8.4-10.2); CREATININE 2.77 mg/dl (0.44-1.00); POTASSIUM 5.5 mmol/L (3.5-5.1); TOTAL PROTEIN 6.6 g/dl (6.1-8.1)
[2016-12-07] MEDS: SEVELAMER 800 MG TAB PO SCH ×3 (08:43→16:42)
[2016-12-07] MEDS: AMLODIPINE 5 MG TAB PO SCH ×2 (08:44→21:07)
[2016-12-07] MEDS: SERTRALINE 100 MG TAB PO SCH (08:44)
[2016-12-07] MEDS: VITAMIN B COMPLEX/VIT C CAP PO SCH ×2 (08:44→21:07)
[2016-12-07] MEDS: LOSARTAN 50 MG TAB PO SCH ×2 (08:44→21:08)
[2016-12-07] MEDS: DIPHENHYDRAMINE 25 MG CAP PO PRN (08:44)
[2016-12-07] MEDS: DOCUSATE SODIUM 100 MG CAP PO SCH ×2 (08:44→21:07)
[2016-12-07] MEDS: CHOLECALCIFEROL 400 UNITS TAB PO SCH (08:45)
[2016-12-07] MEDS: METOPROLOL 100 MG TAB PO SCH ×2 (08:45→21:09)
[2016-12-07] MEDS: POLYETHYLENE GLYCOL 17 GM PACKET PO SCH (08:46)
--- NOTE | 2016-12-07 09:44 | CONS ---
Date/Time of Note Date/Time of Note DATE: 12/07/16 TIME: 09:37 Assessment/Plan Assessment/Plan Additional Assessment/Plan REHABILITATION POST-ADMISSION PHYSICIAN EVALUATION: REHABILITATION IMPAIRMENT CATEGORY: T7 incomplete paraplegia due to epidural abscess/osteomyelitis-status post Thoracic laminectomy drainage of abscess ACTIVE COMORBIDITIES: 1. post operative respiratory failure requiring intubation, with eventual extubation 2. Toxic metabolic encephalopathy 3. Diabetes Mellitus type 2 4. ESRD on HD 5. Afib 6. Coronary Artery Disease 7. history of DVT 8. Hypertension 9. Hypercholesterolemia 10. COPD 11. history of CVA 12. anxiety 13. depression 14. Impairments in self-care, mobility and cognition. PLAN: The patient has been admitted for comprehensive interdisciplinary acute rehab and is anticipated to tolerate 3 hours of daily therapy in divided doses for at least 5/7 days a week. The treatment plan will include: 1. Physical therapy to focus on bed mobility, transfers, and household ambulation with the goal of having the patient reach a standby assist for ambulation. 2. Occupational therapy to focus on hygiene, grooming, dressing, bathing, and toileting activities with the goal of having the patient reach a standby assist level. 3. Speech therapy for full cognitive and communication assessment and retraining in addition to dysphagia management with the goal of having the patient return to baseline cognition, express basic needs and meet nutritional needs by mouth. 4. Rehabilitation nursing for carryover of therapeutic interventions, the goal of continent of bowel and bladder, the goal of pain adequately managed on oral medications. ESTIMATED LENGTH OF STAY: 14 days. DISPOSITION GOAL: Home. Rehabilitation Barrier: pain Intervention for barrier: interdisciplinary rehabilitation I acknowledge that I performed a full physical examination on this patient within 24 hours of admission to the rehabilitation unit and believe the patient is a good candidate for comprehensive interdisciplinary rehab care and is anticipated to make reasonable goals in a reasonable period of time as outlined above. Consultation Date/Type/Reason Admit Date/Time Dec 06, 2016 at 10:56 Hx of Present Illness Patient is a 51-year-old female with a history of multiple medical comorbidities including diabetes mellitus, end-stage renal disease with hemodialysis, coronary artery disease, hypertension, history of CVA with good functional recovery, who was initially admitted to [facility] with fever back pain weakness and numbness. Patient was noted to have epidural abscess and osteomyelitis at T7-T8. Patient did undergo lumbar laminectomy in addition to drainage of abscess. Patient's postoperative course was notable for pneumonia and worsening pulmonary status requiring intubation. Patient was eventually extubated. She was then transferred to [facility] for continued therapy. Patient's medical status has continued to improve and currently she is able to tolerate increase interdisciplinary treatment plan. Eyes: other (decreased vision) ENT: No bleeding, No congestion, No discharge, No dysphagia, No no complaints, No other, No pain, No sore throat Respiratory: No cough, No no complaints, No other, No pain, No pleuritic pain, No shortness of breath, No sputum, No wheezing Cardiovascular: No chest pain, No edema, No lightheadedness, No no complaints, No orthopenea, No other, No palpitations, No paroxysmal nocturnal dyspnea Gastrointestinal: constipation Genitourinary: No bleeding, No discharge, No dysuria, No flank pain, No hematuria, No no complaints, No other Past Medical History Diabetes mellitus type 2 End-stage renal disease on hemodialysis Coronary artery disease Atrial fibrillation Hypertension Hyperlipidemia History of DVT Anxiety and depression History of CVA with good functional recovery COPD FUNCTIONAL HISTORY: Prior to recent events, the patient was independent in self-care tasks and mobility. Currently, patient requires maximal assist for self-care and mobility tasks. I have reviewed the preadmission screen and the patient's current functional status is consistent with the preadmission screen. SOCIAL HISTORY: The patient lives at home and hopes to return there upon discharge. Social History Smoking Status: Never smoker Exam/Review of Systems Vital Signs Vitals Vital Signs Date Time Temp Pulse Resp B/P Pulse Ox O2 Delivery O2 Flow Rate FiO2 12/07/16 07:30 98.5 69 20 166/78 97 12/06/16 21:15 Nasal Cannula 2.0 Intake and Output 12/06/16 12/06/16 12/07/16 14:59 22:59 06:59 Intake Total 360 ml 120 ml Output Total 1 ml Balance 360 ml 119 ml Exam 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ly she is awake and oriented to person. She does have a delayed thought processing speed but can follow simple one-step commands She demonstrates good strength in bilateral upper extremity. She has 2+ strength in bilateral lower extremity. She has impaired static and dynamic balance. Pain with lower extremity activities Head: No atraumatic, No hematomas, No lacerations, No normocephalic, No other ENMT: No intubated, No mucosa pink and moist, No nl external ears & nose, No nl lips & teeth, No nl nasal mucosa & septum, No other, No tympanic membranes Neck: No bruits, No jvd, No masses, No non-tender, No nuchal rigidity, No other , No supple, No thyromegaly Respiratory: No clear to auscultation, No congested cough, No crackles/rales, No diminished breath sounds, No intercostal retraction, No labored breathing, No normal air movement, No other, No respirations, No tactile fremitus, No wheezing Cardiovascular: No S3, No S4, No bruits, No diastolic murmur, No edema, No gallop, No irregular rhythm, No jugular venous distention (JVD), No murmurs/ extra sounds, No nl pulses, No other, No regular rate and rhythm, No rub, No systolic murmur Gastrointestinal: No ascites, No bowel sounds, No distended, No firm, No hepatomegaly, No mass, No nl liver, spleen, No non-tender, No other, No rebound or guarding, No soft, No splenomegaly, No surgical scars, No tender Results Result Diagram: 12/07/16 0609 12/07/16 0606 Results 24 hrs Laboratory Tests Test 12/06/16 12:27 12/06/16 17:13 12/06/16 20:34 12/07/16 06:06 Bedside Glucose 125 120 133 Sodium Level 142 Potassium Level 5.5 H Chloride Level 109 Carbon Dioxide Level 24 Anion Gap 15 Blood Urea Nitrogen 37 H Creatinine 2.77 H Glucose Level 90 Calcium Level 8.3 L Total Bilirubin 0.0 L Direct Bilirubin 0.00 Indirect Bilirubin 0.0 Aspartate Amino Transf (AST/SGOT) 22 Alanine Aminotransferase (ALT/SGPT) 23 Alkaline Phosphatase 190 H Total Protein 6.6 Albumin 2.7 L Globulin 3.90 H Albumin/Globulin Ratio 0.69 Test 12/07/16 06:09 12/07/16 07:55 White Blood Count 11.2 #H Red Blood Count 2.67 L Hemoglobin 8.0 L Hematocrit 27.0 L Mean Corpuscular Volume 101.1 H Mean Corpuscular Hemoglobin 30.0 Mean Corpuscular Hemoglobin Concent 29.6 L Red Cell Distribution Width 17.2 #H Platelet Count 382 Mean Platelet Volume 8.1 Neutrophils % 63.2 Lymphocytes % 22.5 Monocytes % 6.2 Eosinophils % 6.9 Basophils % 0.6 Nucleated Red Blood Cells % 0.0 Neutrophils # 7.1 Lymphocytes # 2.5 Monocytes # 0.7 Eosinophils # 0.8 H Basophils # 0.1 Nucleated Red Blood Cells # 0.0 Bedside Glucose 77 Medications Medications Current Medications Sertraline HCl (Zoloft) 100 mg DAILY PO Last administered on 12/07/16 08:44; Admin Dose 100 MG; Start 12/07/16 at 09:00 Amlodipine Besylate (Norvasc) 5 mg BID PO Last administered on 12/07/16 08:44 ; Admin Dose 5 MG; Start 12/06/16 at 21:00 Losartan Potassium (Cozaar) 50 mg BID PO Last administered on 12/07/16 08:44; Admin Dose 50 MG; Start 12/06/16 at 21:00 Atorvastatin Calcium (Lipitor) 80 mg DAILY@21 PO Last administered on 20:29; Admin Dose 80 MG; Start 12/06/16 at 21:00 Polyethylene Glycol (Miralax) 17 gm DAILY PO Last administered on 12/07/16 08: 46; Admin Dose 17 GM; Start 12/07/16 at 09:00 Docusate Sodium (Colace) 100 mg BID PO Last administered on 12/07/16 08:44; Admin Dose 100 MG; Start 12/06/16 at 21:00 Metoprolol Tartrate (Lopressor) 100 mg BID PO Last administered on 12/07/16 08 :45; Admin Dose 100 MG; Start 12/06/16 at 21:00 Vitamin B Complex/ Vitamin C (Berocca) 1 cap BID PO Last administered on 08:44; Admin Dose 1 CAP; Start 12/06/16 at 21:00 Hydromorphone HCl (Dilaudid) 0.5 mg Q4H PRN IV PAIN Last administered on 12/07/16 05:26; Admin Dose 0.5 MG; Start 12/06/16 at 15:30 Cholecalciferol (Vitamin D) 400 units DAILY PO Last administered on 12/07/16 08:45; Admin Dose 400 UNITS; Start 12/07/16 at 09:00 Pantoprazole (Protonix Tab) 40 mg DAILY@06 PO Last administered on 12/07/16 05 :25; Admin Dose 40 MG; Start 12/07/16 at 06:00 Gabapentin (Neurontin) 400 mg Q8 PO Last administered on 12/07/16 05:26; Admin Dose 400 MG; Start 12/06/16 at 22:00 Oxycodone HCl (Oxycontin) 10 mg Q8 PO ; Start 12/06/16 at 22:00; Status UNV Hydralazine HCl (Apresoline) 50 mg TID PO Last administered on 12/07/16 08:45 ; Admin Dose 50 MG; Start 12/06/16 at 21:00 Warfarin Sodium (Coumadin) 2.5 mg DAILY@17 PO Last administered on 12/06/16 17 :36; Admin Dose 2.5 MG; Start 12/06/16 at 17:00 Warfarin Sodium (Coumadin) 1 mg DAILY@17 PO Last administered on 12/06/16 17: 36; Admin Dose 1 MG; Start 12/06/16 at 17:00 Methocarbamol (Robaxin) 500 mg TID PRN PO MUSCLE SPASMS; Start 12/06/16 at 17: 00 Diphenhydramine HCl (Benadryl) 25 mg Q6H PRN PO ITCHING Last administered on 08:44; Admin Dose 25 MG; Start 12/06/16 at 15:30 Miscellaneous Information 1 ea NOTE XX ; Start 12/06/16 at 16:00 Glucose (Glutose) 15 gm Q15M PRN PO DECREASED GLUCOSE; Start 12/06/16 at 16:00 Glucose (Glutose) 22.5 gm Q15M PRN PO DECREASED GLUCOSE; Start 12/06/16 at 16: 00 Dextrose (D50w Syringe) 25 ml Q15M PRN IV DECREASED GLUCOSE; Start 12/06/16 at 16:00 Dextrose (D50w Syringe) 50 ml Q15M PRN IV DECREASED GLUCOSE; Start 12/06/16 at 16:00 Glucagon (Glucagen) 1 mg Q15M PRN IM DECREASED GLUCOSE; Start 12/06/16 at 16:00 Glucose (Glutose) 15 gm Q15M PRN BUCCAL DECREASED GLUCOSE; Start 12/06/16 at 16 :00 Senna (Senokot) 1 tab HS PO Last administered on 7/30/17at 20:29; Admin Dose 1 TAB; Start 12/06/16 at 21:00 Acetaminophen (Tylenol Tab) 650 mg Q4H PRN PO PAIN; Start 12/06/16 at 17:00 Bisacodyl (Dulcolax Supp) 10 mg DAILY PRN [place] CONSTIPATION; Start 12/06/16 at 17 :00 Magnesium Hydroxide (Milk Of Mag) 30 ml BID PRN PO CONSTIPATION; Start at 17:00 Lactulose (Enulose) 20 gm DAILY PRN PO CONSTIPATION; Start 12/06/16 at 17:00 Miscellaneous Information (*Order Clarification Bulletin) MEDICATION REQUIRES CLARIFICATION: Q8H XX ; Start 12/06/16 at 18:00 ALINE CORREIA MD Dec 07, 2016 09:44
--- NOTE | 2016-12-07 11:28 | HP ---
DATE OF ADMISSION: 12/06/2016 HISTORY OF PRESENT ILLNESS: This is a 51-year-old female with a past medical history of chronic kidney disease stage 4, history of CVA, history of diabetes, history of diabetic nephropathy, history of coronary artery disease, dyslipidemia, hypertension whose history begins approximately several months ago when the patient was admitted initially at [facility] due to fever, back pain, weakness and lower extremity numbness, paresthesia. The patient at that time was found to have a diskitis osteomyelitis at T7-T8. The patient had local drainage of her abscess. She underwent surgery laminectomy due to osteomyelitis. The patient's hospital course was complicated with pneumonia for which patient eventually was intubated. The patient also went into acute kidney injury on top of her CKD and became dialysis dependent. The patient was eventually transferred over to [facility] for ongoing rehab on 10/20/2016. While at [facility], the patient had been clinically improving. She has been receiving dialysis. The patient was noted to have a T7 paraplegia due to incomplete spinal cord injury. The patient also noted to have a DVT, was on Coumadin and also has had paroxysmal atrial fibrillation which was controlled through medical management. The patient clinically improved and now is being transferred from [facility] to [facility] acute rehab for continued care. Of note is the fact that the patient also has a narcotic dependency and is also noted to have depression, anxiety disorder. The patient herself currently denies any fevers, chills, nausea, vomiting. PAST MEDICAL HISTORY: As stated above history of end-stage renal disease, history of diabetes, hypertension, CVA, COPD, coronary artery disease, history of osteomyelitis, history of T7 paraplegia, history of cognitive decline, history narcotic dependence, history of anxiety disorder, hypertension. PAST SURGICAL HISTORY: Status post thoracic spine laminectomy, epidural abscess drainage. Status post PermCath placement. FAMILY HISTORY: Noncontributory. SOCIAL HISTORY: Does not actively drink, smoke, or do drugs. MEDICATIONS: The patient's medications have been reviewed. REVIEW OF SYSTEMS: A 14-point review of systems was conducted. Pertinent positives in the HPI, otherwise negative. PHYSICAL EXAMINATION: VITAL SIGNS: Blood pressure is 166/78, respirations 20, pulse 69, temperature 98.5. HEENT: Head is normocephalic. Pupils are equal and reactive to light. NECK: Supple. HEART: Regular rate. LUNGS: Diminished breath sounds at the base. ABDOMEN: Soft, nontender to palpation. No guarding. EXTREMITIES: Negative for clubbing, cyanosis, no edema. DERMATOLOGIC: No rashes. MUSCULOSKELETAL: No joint effusion. NEUROLOGIC: The patient has noted lower extremity weakness approximately 2/5 strength, upper extremities 4-5. Exam is somewhat limited due to lack of patient cooperation. LABORATORY AND DIAGNOSTIC DATA: White count 11.2, hemoglobin 8.0, platelet count 382,000. Sodium 142, potassium 5.5, BUN 37, creatinine 2.77. ASSESSMENT AND PLAN: This is a 51-year-old female who presents with: 1. End-stage renal disease. The patient on dialysis Wednesday, Wednesday, Wednesday with PermCath. Plan for dialysis today for 3 hours, 2K bath, calcium 2.5. 2. Anemia. Will monitor hemoglobin and hematocrit levels. Will give Epogen with hemodialysis. 3. Metabolic bone disorder. Monitor calcium and phosphorus levels. 4. Hypertension. Continue current blood pressure regimen. 5. Osteomyelitis status post thoracic spine laminectomy. The patient has completed antibiotic course. 6. T7 paraplegia with incomplete spinal cord injury. Continue physical therapy. 7. History of deep venous thrombosis. Continue Coumadin. Monitor INR. 8. Anxiety disorder. Depression. Continue current medical management. 9. Diabetes. Continue Accu-Chek and sliding scale. 10. Narcotic dependence. 11. Chronic pain syndrome. Continue current pain regimen. 12. Paroxysmal atrial fibrillation, currently on Coumadin. Monitor INR. 13. History of chronic obstructive pulmonary disease due to previous history of smoking. Continue current treatment plan. Continue nebulizers p.r.n. 14. Multifactorial encephalopathy due to cognitive decline, memory impairment, etiology toxic metabolic. 15. History of cerebrovascular accident. Continue medical management. Please note, I spent up to 25 minutes face to face time with the patient. The patient is full code. Dictated By: Buck Seals DO /saul/nichole /Document#: [id number]
[2016-12-07] MEDS: oxyCODONE (CR) 10 MG TAB [oxyCONTIN] PO SCH ×3 (12:06→22:00)
[2016-12-07 13:14] LABS: INR 1.2; PROTIME 15.3 Sec (12.2-14.2); PT RATIO 1.2
[2016-12-07] MEDS: ALBUTEROL/IPRATROPIUM (NEB) 3 ML AMP HHN SCH ×2 (15:03→20:00)
[2016-12-07] MEDS: WARFARIN 1 MG TAB PO SCH (16:42)
[2016-12-07] MEDS: WARFARIN 2.5 MG TAB PO SCH (16:42)
[2016-12-07] MEDS: SENNA TAB PO SCH (21:00)
[2016-12-07] MEDS: ATORVASTATIN 80 MG TAB PO SCH (21:08)
[2016-12-07] MEDS: MUPIROCIN 2% 22 GM OINT TOP SCH (21:10)
[2016-12-08 02:00] VITALS: BP 169/70; RESP 18
[2016-12-08] MEDS: PANTOPRAZOLE (EC) 40 MG TAB PO SCH (05:25)
[2016-12-08] MEDS: oxyCODONE (CR) 10 MG TAB [oxyCONTIN] PO SCH ×3 (05:25→21:15)
[2016-12-08] MEDS: GABAPENTIN 400 MG CAP PO SCH ×3 (05:25→21:14)
[2016-12-08 06:52] LABS: BASOPHIL # 0.1 10^3/ul (0.0-0.1); BASOPHILS % 0.4 % (0.0-2.0); EOSINOPHILS # 0.7 10^3/ul (0.0-0.5); EOSINOPHILS % 6.6 % (0.0-7.0); HEMATOCRIT 27.6 % (37.0-47.0); HEMOGLOBIN 8.2 g/dl (12.0-16.0); LYMPHOCYTES # 2.1 10^3/ul (0.8-2.9); MEAN CORPUSCULAR HEMOGLOBIN 29.6 pg (29.0-33.0); MEAN CORPUSCULAR HGB CONC 29.7 g/dl (32.0-37.0); MEAN CORPUSCULAR VOLUME 99.6 fl (82.0-101.0); MEAN PLATELET VOLUME 7.9 fl (7.4-10.4); MONOCYTE # 0.7 10^3/ul (0.3-0.9); NEUTROPHIL # 7.6 10^3/ul (1.6-7.5); NEUTROPHILS % 67.5 % (39.0-77.0); PLATELET COUNT 351 10^3/UL (140-415); RED BLOOD COUNT 2.77 10^6/ul (4.20-5.40); WHITE BLOOD COUNT 11.2 10^3/ul (4.8-10.8)
[2016-12-08] MEDS: Insulin ASPART slide scale (Novolog) SC SCH ×4 (07:05→21:00)
[2016-12-08 07:08] LABS: INR 1.26; PROTIME 15.9 Sec (12.2-14.2); PT RATIO 1.2
[2016-12-08 07:29] LABS: CALCIUM 8.1 mg/dl (8.4-10.2); CREATININE 2.39 mg/dl (0.44-1.00); MAGNESIUM 1.7 mg/dl (1.7-2.5); PHOSPHORUS 3.3 mg/dl (2.5-4.9); POTASSIUM 5.1 mmol/L (3.5-5.1)
[2016-12-08] MEDS: HYDROmorphONE 1 MG/ML SYG IV PRN ×3 (07:32→18:53)
[2016-12-08 07:42] VITALS: BP 190/84; RESP 18
[2016-12-08] MEDS: ALBUTEROL/IPRATROPIUM (NEB) 3 ML AMP HHN SCH ×6 (07:49→19:27)
[2016-12-08] MEDS: MUPIROCIN 2% 22 GM OINT TOP SCH ×2 (08:21→21:17)
[2016-12-08] MEDS: POLYETHYLENE GLYCOL 17 GM PACKET PO SCH (08:21)
[2016-12-08] MEDS: AMLODIPINE 5 MG TAB PO SCH ×2 (08:22→21:05)
[2016-12-08] MEDS: CHOLECALCIFEROL 400 UNITS TAB PO SCH (08:22)
[2016-12-08] MEDS: DOCUSATE SODIUM 100 MG CAP PO SCH ×2 (08:22→21:04)
[2016-12-08] MEDS: VITAMIN B COMPLEX/VIT C CAP PO SCH ×2 (08:22→21:04)
[2016-12-08] MEDS: SEVELAMER 800 MG TAB PO SCH ×3 (08:22→17:38)
[2016-12-08] MEDS: SERTRALINE 100 MG TAB PO SCH (08:22)
[2016-12-08] MEDS: LOSARTAN 50 MG TAB PO SCH ×2 (08:23→21:00)
[2016-12-08] MEDS: METOPROLOL 100 MG TAB PO SCH ×2 (08:23→21:06)
--- NOTE | 2016-12-08 08:24 | CONS ---
DATE OF ADMISSION: 12/06/2016 DATE OF CONSULTATION: 12/07/2016 Cardiology Consultation REFERRING PHYSICIAN: Buck Seals DO. REASON FOR CONSULTATION: Atrial fibrillation. CHIEF COMPLAINT: Debility. HISTORY OF PRESENT ILLNESS: Thank you for referring the patient. review of the old chart, discussion and with the staff. This is an unfortunate, 51-year-old female with multiple complicated history was admitted to our facility for rehab. The patient has a history of atrial fibrillation and CVA, for which I was kindly asked to evaluate and treat. At this point the patient denies any chest pain or pressure but does complain of palpitations that appear to be constant, including right now. Denies any active bleeding to me. PAST MEDICAL HISTORY: History of atrial fibrillation, history of CVA about 2 years ago. Review of the old Cardiology notes, the patient has had a cardioembolic stroke. The patient has a history of diabetes with diabetic nephropathy, dyslipidemia, hypertension. Recently the patient [facility] for fever, back pain, weakness, lower extremity numbness, paresthesia. At the time was found to have discitis, osteomyelitis at T7-T8. Had local drainage of an abscess, surgery, laminectomy due to osteomyelitis. The patient's course was also complicated with pneumonia, eventually intubated, went into renal failure. Has been on dialysis. Hospital and transferred to our facility for rehab. The patient also noted to have DVT at the time. Past medical history is renal failure on dialysis, hypertension, diabetes, CVA, COPD, osteomyelitis as above mentioned. History of T7 paraplegia, cognitive decline, history of narcotic dependence, panic and anxiety disorder. PAST SURGICAL HISTORY: Noted for thoracic spine laminectomy, epidural abscess drainage, Permacath placement on the right side. FAMILY HISTORY: No reported coronary artery disease. SOCIAL HISTORY: The patient has smoked in the past and then drug marijuana. MEDICATION: Medical reconciliation was personally reviewed. ALLERGIES: CODEINE. REVIEW OF SYSTEMS: As above mentioned. PHYSICAL EXAMINATION: VITAL SIGNS: Temperature 98.5, heart rate of 69, blood pressure of 166/78, respiratory rate 80, satting 98 percent. GENERAL: , in no acute distress. . HEENT: Eyes . CARDIOVASCULAR: . PULMONARY: With no wheeze anteriorly. CHEST: placed. ABDOMEN: Obese, soft, nontender. . NEUROLOGIC: Awake and alert with right-sided weakness. PSYCHIATRIC: Calm. : multiple tattoos. LABORATORY: WBC 11.2, hemoglobin 8.0, platelets of 382. INR is 1.2. Sodium 142, potassium 5.5. BUN of 37, creatinine of 2.7. 90. Albumin is 2.7 ASSESSMENT AND PLAN: 1. History of atrial fibrillation. Currently on clinical exam appeared to be in sinus rhythm. Heart is remaining stable. 2. History of cerebrovascular event. 3. Hypertension. 4. Renal failure, on dialysis. 5. History of dyslipidemia. 6. History of multiple infections. 7. Discitis. 8. Severe anemia. 9. History of deep vein thrombosis. RECOMMENDATIONS: I will check the echocardiogram function and left atrial size. Heart rate is currently under control on beta jayda, 100 b.i.d. Coumadin is being adjusted as per Internal Medicine. Daily INR will be checked. EKG will be checked as well. Continue physical therapy and rehab. Internal Medicine as needed. Dialysis as per Nephrology team. Thank you for this referral. I will continue to follow along with you. Dictated By: Silvestre Escobedo MD /saul/[email or web address] /Document#: [id number] CC: Buck Seals DO;*EndCC*
[2016-12-08] MEDS ORDERED: EPOETIN 4000 UNITS/1 ML INJ (ESRD) SC SCH (09:00)
[2016-12-08] MEDS: BISACODYL 10 MG SUPP PR SCH (09:00)
--- NOTE | 2016-12-08 10:43 | PN ---
DATE: 12/08/2016 SUBJECTIVE DATA: The patient had hemodialysis yesterday, tolerated well. The patient is currently complaining about pain. The patient noted to be hypertensive. No other events noted. OBJECTIVE DATA: VITAL SIGNS: Blood pressure is 190/84, respirations 18, pulse 73, temperature 99.0. HEENT: Head is normocephalic. NECK: Supple. HEART: Regular rate. LUNGS: Show diminished breath sounds at the base. ABDOMEN: Soft, nontender to palpation. No rebound or guarding. EXTREMITIES: Negative for clubbing, cyanosis, no edema. DERMATOLOGIC: Clean. No rashes. MUSCULOSKELETAL: No joint effusion. NEUROLOGIC: No change in exam. MEDICATIONS: Reviewed. LABORATORY AND DIAGNOSTIC DATA: Shows a white count 9.2 , hemoglobin 8.2, crit 27.6, platelet count is 351. Sodium 150, potassium 5.1, chloride 102, BUN 29, creatinine 2.39. INR is 1.26. ASSESSMENT AND PLAN: 1. End-stage renal disease. The patient on dialysis Wednesday, Wednesday, Wednesday. Plan for hemodialysis tomorrow. 2. Anemia. Continue to monitor H and H levels. Will give Epogen with dialysis. 3. Mineral bone disorder. Monitor calcium and phosphorus levels. 4. Hypertension. Blood pressure remains elevated. Continue current blood pressure regimen. Continue control of underlying pain. We will adjust medications needed. 5. History of osteomyelitis, status post thoracic spine laminectomy. The patient has completed antibiotic course. Continue to monitor. Consider ID evaluation. 6. Mild leukocytosis, may be reactive. Continue to monitor. Will follow up with ID. 7. C7 paraplegia. Continue physical therapy. Continue rehab. 8. History of deep venous thrombosis. Continue Coumadin. Monitor INR. 9. Anxiety disorder, depression. Continue current medical management. 10. Diabetes. Continue Accu-Chek and insulin sliding scale. 11. Paroxysmal atrial fibrillation, currently in sinus rhythm. Continue Coumadin. Monitor INR level. 12. History of chronic obstructive pulmonary disease. Continue current medical management. 13. Encephalopathy, improved. 14. History of cerebrovascular accident. Continue current treatment plan. 15. History of narcotic dependence. Dictated By: Buck Seals DO /saul/josee /Document#: [id number]
[2016-12-08] MEDS: DIPHENHYDRAMINE 25 MG CAP PO PRN (11:28)
--- NOTE | 2016-12-08 12:53 | CONS ---
Date/Time of Note Date/Time of Note DATE: 12/08/16 TIME: 12:51 Consult Date/Type/Reason Admit Date/Time Dec 06, 2016 at 10:56 Initial Consult Date Subjective Patient still with significant pain however improved from yesterday Objective Lungs clear anteriorly abdomen soft and max assist transfer Vital Signs Date Time Temp Pulse Resp B/P Pulse Ox O2 Delivery O2 Flow Rate FiO2 12/08/16 08:00 Nasal Cannula 2.0 12/08/16 07:55 70 20 12/08/16 07:42 99.0 190/84 96 Intake and Output 12/07/16 12/07/16 12/08/16 15:00 23:00 07:00 Intake Total 1340 ml Output Total 3501 ml Balance -2161 ml Results/Medications Result Diagram: 12/08/16 0628 12/08/16 0628 Results 24 hrs Laboratory Tests Test 12/07/16 17:31 12/07/16 21:08 12/08/16 02:22 12/08/16 06:28 Bedside Glucose 117 186 125 White Blood Count 11.2 H Red Blood Count 2.77 L Hemoglobin 8.2 L Hematocrit 27.6 L Mean Corpuscular Volume 99.6 Mean Corpuscular Hemoglobin 29.6 Mean Corpuscular Hemoglobin Concent 29.7 L Red Cell Distribution Width 17.0 H Platelet Count 351 Mean Platelet Volume 7.9 Neutrophils % 67.5 Lymphocytes % 19.0 Monocytes % 6.0 Eosinophils % 6.6 Basophils % 0.4 Nucleated Red Blood Cells % 0.0 Neutrophils # 7.6 H Lymphocytes # 2.1 Monocytes # 0.7 Eosinophils # 0.7 H Basophils # 0.1 Nucleated Red Blood Cells # 0.0 Prothrombin Time 15.9 H Prothrombin Time Ratio 1.2 INR International Normalized Ratio 1.26 Sodium Level 140 Potassium Level 5.1 Chloride Level 102 Carbon Dioxide Level 28 Anion Gap 15 Blood Urea Nitrogen 29 H Creatinine 2.39 H Glucose Level 79 Calcium Level 8.1 L Phosphorus Level 3.3 Magnesium Level 1.7 Test 12/08/16 08:08 12/08/16 12:08 Bedside Glucose 90 84 Medications Current Medications Sertraline HCl (Zoloft) 100 mg DAILY PO Last administered on 12/08/16t 08:22; Admin Dose 100 MG; Start 12/07/16 at 09:00 Amlodipine Besylate (Norvasc) 5 mg BID PO Last administered on 12/08/16 08:22; Admin Dose 5 MG; Start 12/06/16 at 21:00 Losartan Potassium (Cozaar) 50 mg BID PO Last administered on 12/08/16 08:23; Admin Dose 50 MG; Start 12/06/16 at 21:00 Atorvastatin Calcium (Lipitor) 80 mg DAILY@21 PO Last administered on 21:08; Admin Dose 80 MG; Start 12/06/16 at 21:00 Polyethylene Glycol (Miralax) 17 gm DAILY PO Last administered on 12/08/16 08: 21; Admin Dose 17 GM; Start 12/07/16 at 09:00 Docusate Sodium (Colace) 100 mg BID PO Last administered on 12/08/16 08:22; Admin Dose 100 MG; Start 12/06/16 at 21:00 Metoprolol Tartrate (Lopressor) 100 mg BID PO Last administered on 12/08/16 08: 23; Admin Dose 100 MG; Start 12/06/16 at 21:00 Vitamin B Complex/ Vitamin C (Berocca) 1 cap BID PO Last administered on 08:22; Admin Dose 1 CAP; Start 12/06/16 at 21:00 Cholecalciferol (Vitamin D) 400 units DAILY PO Last administered on 12/08/16 08 :22; Admin Dose 400 UNITS; Start 12/07/16 at 09:00 Pantoprazole (Protonix Tab) 40 mg DAILY@06 PO Last administered on 12/08/16 05: 25; Admin Dose 40 MG; Start 12/07/16 at 06:00 Gabapentin (Neurontin) 400 mg Q8 PO Last administered on 12/08/16 05:25; Admin Dose 400 MG; Start 12/06/16 at 22:00 Hydralazine HCl (Apresoline) 50 mg TID PO Last administered on 12/08/16 12:41; Admin Dose 50 MG; Start 12/06/16 at 21:00 Warfarin Sodium (Coumadin) 2.5 mg DAILY@17 PO Last administered on 12/07/16 16 :42; Admin Dose 2.5 MG; Start 12/06/16 at 17:00 Warfarin Sodium (Coumadin) 1 mg DAILY@17 PO Last administered on 12/07/16 16: 42; Admin Dose 1 MG; Start 12/06/16 at 17:00 Methocarbamol (Robaxin) 500 mg TID PRN PO MUSCLE SPASMS; Start 12/06/16 at 17: 00 Diphenhydramine HCl (Benadryl) 25 mg Q6H PRN PO ITCHING Last administered on 11:28; Admin Dose 25 MG; Start 12/06/16 at 15:30 Miscellaneous Information 1 ea NOTE XX ; Start 12/06/16 at 16:00 Glucose (Glutose) 15 gm Q15M PRN PO DECREASED GLUCOSE; Start 12/06/16 at 16:00 Glucose (Glutose) 22.5 gm Q15M PRN PO DECREASED GLUCOSE; Start 12/06/16 at 16: 00 Dextrose (D50w Syringe) 25 ml Q15M PRN IV DECREASED GLUCOSE; Start 12/06/16 at 16:00 Dextrose (D50w Syringe) 50 ml Q15M PRN IV DECREASED GLUCOSE; Start 12/06/16 at 16:00 Glucagon (Glucagen) 1 mg Q15M PRN IM DECREASED GLUCOSE; Start 12/06/16 at 16:00 Glucose (Glutose) 15 gm Q15M PRN BUCCAL DECREASED GLUCOSE; Start 12/06/16 at 16 :00 Senna (Senokot) 1 tab HS PO Last administered on 12/06/16 20:29; Admin Dose 1 TAB; Start 12/06/16 at 21:00 Acetaminophen (Tylenol Tab) 650 mg Q4H PRN PO PAIN; Start 12/06/16 at 17:00 Magnesium Hydroxide (Milk Of Mag) 30 ml BID PRN PO CONSTIPATION; Start at 17:00 Lactulose (Enulose) 20 gm DAILY PRN PO CONSTIPATION; Start 12/06/16 at 17:00 Oxycodone HCl (Oxycontin) 10 mg Q8 PO Last administered on 12/08/16 05:25; Admin Dose 10 MG; Start 12/07/16 at 11:30 Bisacodyl (Dulcolax Supp) 10 mg DAILY CO ; Start 12/08/16 at 09:00 Hydromorphone HCl (Dilaudid) 1 mg Q4H PRN IV PAIN Last administered on 12/08/16 11:28; Admin Dose 1 MG; Start 12/07/16 at 11:30 Mupirocin (Bactroban) 1 applic BID TOP Last administered on 12/08/16 08:21; Admin Dose 1 APPLIC; Start 12/07/16 at 21:00; Stop 12/14/16 at 20:59 Assessment/Plan Additional Assessment/Plan Rehabilitation-T7 incomplete paraplegia due to epidural abscess/osteomyelitis- status post Thoracic laminectomy drainage of abscess Increase activities as tolerated Pulmonary -post operative respiratory failure requiring intubation, with eventual extubation, currently stable Toxic metabolic encephalopathy-continue treatment plan Diabetes Mellitus type 2 ESRD on HD Afib Coronary Artery Disease history of DVT Hypertension Hypercholesterolemia COPD history of CVA anxiety depression ALINE CORREIA MD Dec 08, 2016 12:53
[2016-12-08 14:00] VITALS: BP_SYST 124; BP_SYST 129; BP_DIAS 64; BP_DIAS 70; PULSE 77; RESP 18
--- NOTE | 2016-12-08 15:14 | PN ---
Date/Time of Note Date/Time of Note DATE: 12/08/16 TIME: 15:11 Assessment/Plan VTE Prophylaxis VTE Prophylaxis Intervention: ambulation, other Lines/Catheters IV Catheter Type (from Nrs): DORIS CATH Urinary Cath still in place: No Assessment/Plan Assessment/Plan 1. History of P-atrial fibrillation. Currently in NSR 2. History of cerebrovascular event. 3. Hypertension. 4. Renal failure, on dialysis. 5. History of dyslipidemia. 6. History of multiple infections. 7. Discitis. 8. Severe anemia. 9. History of deep vein thrombosis. Adjust coumadin to goal INR 2-3 ECHO today. cont betablocker. HD as per renal will check daily PT/INR Cont PT THANK YOU. Subjective 24 Hr Interval Summary Free Text/Dictation d/w staff pt with c/o leg pain no chest pain or pressure. no palpitations or bleeding OBJECTIVE: General: no acute distress. Obese female. HEENT: NC/AT. pupils are equal. round. NECK: NO JVD. no stridor. CV: RRR. systolic murmur; no gallop or rubs. chest: s/p R HD access in place. PULM: no wheezing or rhonchi. GI: SOFT, NT, ND, no rebound or guarding. Obese Extremity: + B/L LE edema. no clubbing. neuro: awake and alert,. Psych: calm and pleasant rectal: deferred ECG 12/08/16: NSR. Exam/Review of Systems Vital Signs Vitals Vital Signs Date Time Temp Pulse Resp B/P Pulse Ox O2 Delivery O2 Flow Rate FiO2 12/08/16 14:00 98.8 69 18 129/64 96 12/08/16 13:58 2.0 12/08/16 13:58 Nasal Cannula Intake and Output 12/07/16 12/07/16 12/08/16 15:00 23:00 07:00 Intake Total 1340 ml Output Total 3501 ml Balance -2161 ml Results Result Diagram: 12/08/16 0628 12/08/16 0628 Results 24 hrs Laboratory Tests Test 12/07/16 17:31 12/07/16 21:08 12/08/16 02:22 12/08/16 06:28 Bedside Glucose 117 186 125 White Blood Count 11.2 H Red Blood Count 2.77 L Hemoglobin 8.2 L Hematocrit 27.6 L Mean Corpuscular Volume 99.6 Mean Corpuscular Hemoglobin 29.6 Mean Corpuscular Hemoglobin Concent 29.7 L Red Cell Distribution Width 17.0 H Platelet Count 351 Mean Platelet Volume 7.9 Neutrophils % 67.5 Lymphocytes % 19.0 Monocytes % 6.0 Eosinophils % 6.6 Basophils % 0.4 Nucleated Red Blood Cells % 0.0 Neutrophils # 7.6 H Lymphocytes # 2.1 Monocytes # 0.7 Eosinophils # 0.7 H Basophils # 0.1 Nucleated Red Blood Cells # 0.0 Prothrombin Time 15.9 H Prothrombin Time Ratio 1.2 INR International Normalized Ratio 1.26 Sodium Level 140 Potassium Level 5.1 Chloride Level 102 Carbon Dioxide Level 28 Anion Gap 15 Blood Urea Nitrogen 29 H Creatinine 2.39 H Glucose Level 79 Calcium Level 8.1 L Phosphorus Level 3.3 Magnesium Level 1.7 Test 12/08/16 08:08 12/08/16 12:08 Bedside Glucose 90 84 Medications Medications Current Medications Sertraline HCl (Zoloft) 100 mg DAILY PO Last administered on 12/08/16 08:22; Admin Dose 100 MG; Start 12/07/16 at 09:00 Amlodipine Besylate (Norvasc) 5 mg BID PO Last administered on 12/08/16 08:22; Admin Dose 5 MG; Start 12/06/16 at 21:00 Losartan Potassium (Cozaar) 50 mg BID PO Last administered on 12/08/16 08:23; Admin Dose 50 MG; Start 12/06/16 at 21:00 Atorvastatin Calcium (Lipitor) 80 mg DAILY@21 PO Last administered on 21:08; Admin Dose 80 MG; Start 12/06/16 at 21:00 Polyethylene Glycol (Miralax) 17 gm DAILY PO Last administered on 12/08/16 08: 21; Admin Dose 17 GM; Start 12/07/16 at 09:00 Docusate Sodium (Colace) 100 mg BID PO Last administered on 12/08/16 08:22; Admin Dose 100 MG; Start 12/06/16 at 21:00 Metoprolol Tartrate (Lopressor) 100 mg BID PO Last administered on 12/08/16 08: 23; Admin Dose 100 MG; Start 12/06/16 at 21:00 Vitamin B Complex/ Vitamin C (Berocca) 1 cap BID PO Last administered on 08:22; Admin Dose 1 CAP; Start 12/06/16 at 21:00 Cholecalciferol (Vitamin D) 400 units DAILY PO Last administered on 12/08/16 08 :22; Admin Dose 400 UNITS; Start 12/07/16 at 09:00 Pantoprazole (Protonix Tab) 40 mg DAILY@06 PO Last administered on 12/08/16 05: 25; Admin Dose 40 MG; Start 12/07/16 at 06:00 Gabapentin (Neurontin) 400 mg Q8 PO Last administered on 12/08/16 14:59; Admin Dose 400 MG; Start 12/06/16 at 22:00 Hydralazine HCl (Apresoline) 50 mg TID PO Last administered on 12/08/16 12:41; Admin Dose 50 MG; Start 12/06/16 at 21:00 Warfarin Sodium (Coumadin) 2.5 mg DAILY@17 PO Last administered on 12/07/16 16 :42; Admin Dose 2.5 MG; Start 12/06/16 at 17:00 Warfarin Sodium (Coumadin) 1 mg DAILY@17 PO Last administered on 12/07/16 16: 42; Admin Dose 1 MG; Start 12/06/16 at 17:00 Methocarbamol (Robaxin) 500 mg TID PRN PO MUSCLE SPASMS; Start 12/06/16 at 17: 00 Diphenhydramine HCl (Benadryl) 25 mg Q6H PRN PO ITCHING Last administered on 11:28; Admin Dose 25 MG; Start 12/06/16 at 15:30 Miscellaneous Information 1 ea NOTE XX ; Start 12/06/16 at 16:00 Glucose (Glutose) 15 gm Q15M PRN PO DECREASED GLUCOSE; Start 12/06/16 at 16:00 Glucose (Glutose) 22.5 gm Q15M PRN PO DECREASED GLUCOSE; Start 12/06/16 at 16: 00 Dextrose (D50w Syringe) 25 ml Q15M PRN IV DECREASED GLUCOSE; Start 12/06/16 at 16:00 Dextrose (D50w Syringe) 50 ml Q15M PRN IV DECREASED GLUCOSE; Start 12/06/16 at 16:00 Glucagon (Glucagen) 1 mg Q15M PRN IM DECREASED GLUCOSE; Start 12/06/16 at 16:00 Glucose (Glutose) 15 gm Q15M PRN BUCCAL DECREASED GLUCOSE; Start 12/06/16 at 16 :00 Senna (Senokot) 1 tab HS PO Last administered on 12/06/16 20:29; Admin Dose 1 TAB; Start 12/06/16 at 21:00 Acetaminophen (Tylenol Tab) 650 mg Q4H PRN PO PAIN; Start 12/06/16 at 17:00 Magnesium Hydroxide (Milk Of Mag) 30 ml BID PRN PO CONSTIPATION; Start at 17:00 Lactulose (Enulose) 20 gm DAILY PRN PO CONSTIPATION; Start 12/06/16 at 17:00 Oxycodone HCl (Oxycontin) 10 mg Q8 PO Last administered on 12/08/16 15:00; Admin Dose 10 MG; Start 12/07/16 at 11:30 Bisacodyl (Dulcolax Supp) 10 mg DAILY AL ; Start 12/08/16 at 09:00 Hydromorphone HCl (Dilaudid) 1 mg Q4H PRN IV PAIN Last administered on 12/08/16 11:28; Admin Dose 1 MG; Start 12/07/16 at 11:30 Mupirocin (Bactroban) 1 applic BID TOP Last administered on 12/08/16 08:21; Admin Dose 1 APPLIC; Start 12/07/16 at 21:00; Stop 12/14/16 at 20:59 TAMERA BAILEY MD Dec 08, 2016 15:14
--- NOTE | 2016-12-08 15:29 | RADRPT ---
Echocardiogram Report Patient Name: AC MOFFETT Gender: Female Date: 1965 Study Date: 08-Dec-2016 Manager Portable: Ezio [facility] Location: 4422 Ref. Physician: TAMERA ESCOBEDO Quality: Adequate Procedures: Transthoracic echocardiogram with complete 2D, M-Mode, and doppler examination. Indications: Atrial Fibrillation. 2D/M Mode Doppler Measurement Value Normal Ranges Measurement Value Normal Ranges LVIDd 2D 5.5 3.5 - 5.6 cm AV Peak Bertin 1.9 m/sec LVIDs 2D 3.2 2.1 - 4.1 cm AV Peak PG 14.0 mmHg FS 2D 41.6 % LVOT Peak Bertin 1.3 m/sec LVPWd 2D 1.3 0.6 - 1.1 cm LVOT Peak PG 7.0 mmHg IVSd 2D 1.3 0.6 - 1.1 cm MV E Peak Bertin 1.2 m/sec IVS/LVPW 2D 1.0 MV A Peak Bertin 1.2 m/sec AoR Diam 2D 2.7 2.0 - 3.7 cm MV E/A 1.0 LA/Ao 2D 1 0 - 1 MV Decel Time 261 msec EDV 2D 169.0 cm3 MV E/A 1.0 ESV 2D 33.7 cm3 TR Peak Bertin 2.8 m/sec LA Dimen 2D 3.8 2.3 - 4.0 cm TR Peak PG 32.0 mmHg RVSP 42.0 mmHg Findings Left Ventricle: Normal left ventricular systolic function. Normal left ventricular cavity size. Mild concentric left ventricular hypertrophy. Ejection fraction is visually estimated at 55 %. Abnormal Diastolic Function. Right Ventricle: Normal right ventricular size. Normal right ventricular systolic function. Left Atrium: The left atrium is normal in size. Right Atrium: The right atrium is normal in size. Mitral Valve: Mitral valve leaflets appear mildly thickened. Mild mitral annular calcification. Trace mitral regurgitation. Aortic Valve: Normal appearance of the aortic valve. No significant aortic stenosis or insufficiency. Tricuspid Valve: Normal appearance of the tricuspid valve. Estimated peak PA systolic pressure 42 mmHg. There is mild tricuspid regurgitation. Pulmonic Valve: Pulmonic valve not well visualized. There is trace pulmonic regurgitation. Pericardium: Trivial pericardial effusion. Aorta: Normal aortic root. IVC: Normal size and normal respiratory collapse consistent with normal right atrial pressure. Conclusions 1.Normal left ventricular systolic function. Normal left ventricular cavity size. Mild concentric left ventricular hypertrophy. Ejection fraction is visually estimated at 55 %. Abnormal Diastolic Function. 2.The left atrium is normal in size. 3.Mitral valve leaflets appear mildly thickened. Mild mitral annular calcification. Trace mitral regurgitation. 4.Normal appearance of the aortic valve. No significant aortic stenosis or insufficiency. 5.Normal appearance of the tricuspid valve. Estimated peak PA systolic pressure 42 mmHg. There is mild tricuspid regurgitation. 6.Normal size and normal respiratory collapse consistent with normal right atrial pressure. Electronically Signed By: Tamera Escobedo 08-Dec-2016 15:28:12 -0700 Patient Name: AC MOFFETT Study Date: 08-Dec-2016 [id number]
[2016-12-08] MEDS: WARFARIN 5 MG TAB PO SCH (17:38)
[2016-12-08 20:00] VITALS: BP 116/60; RESP 20
[2016-12-08] MEDS: ATORVASTATIN 80 MG TAB PO SCH (21:04)
[2016-12-08] MEDS: SENNA TAB PO SCH (21:04)
[2016-12-09] VITALS (11 sets, daily range): BP systolic 120–149; BP diastolic 57–76; PULSE 75–79; RESP 18–20
[2016-12-09] MEDS: PANTOPRAZOLE (EC) 40 MG TAB PO SCH (06:29)
[2016-12-09] MEDS: oxyCODONE (CR) 10 MG TAB [oxyCONTIN] PO SCH ×3 (06:30→21:06)
[2016-12-09] MEDS: GABAPENTIN 400 MG CAP PO SCH ×3 (06:30→21:07)
[2016-12-09 07:03] LABS: BASOPHIL # 0.1 10^3/ul (0.0-0.1); BASOPHILS % 0.5 % (0.0-2.0); EOSINOPHILS # 0.7 10^3/ul (0.0-0.5); EOSINOPHILS % 5.9 % (0.0-7.0); HEMATOCRIT 26.8 % (37.0-47.0); HEMOGLOBIN 8.1 g/dl (12.0-16.0); LYMPHOCYTES # 2.4 10^3/ul (0.8-2.9); LYMPHOCYTES % 22.1 % (15.0-51.0); MEAN CORPUSCULAR HGB CONC 30.2 g/dl (32.0-37.0); MEAN CORPUSCULAR VOLUME 99.3 fl (82.0-101.0); MEAN PLATELET VOLUME 8.1 fl (7.4-10.4); MONOCYTE # 0.8 10^3/ul (0.3-0.9); MONOCYTES % 6.9 % (0.0-11.0); NEUTROPHIL # 7.1 10^3/ul (1.6-7.5); NEUTROPHILS % 64.1 % (39.0-77.0); PLATELET COUNT 359 10^3/UL (140-415); WHITE BLOOD COUNT 11.1 10^3/ul (4.8-10.8)
[2016-12-09 07:23] LABS: INR 1.16; PROTIME 14.8 Sec (12.2-14.2); PT RATIO 1.2
[2016-12-09 07:27] LABS: ALBUMIN 2.7 g/dl (3.3-4.9); ALBUMIN/GLOBULIN RATIO 0.71; CREATININE 3.15 mg/dl (0.44-1.00); POTASSIUM 5.6 mmol/L (3.5-5.1); TOTAL PROTEIN 6.5 g/dl (6.1-8.1)
[2016-12-09 07:37] LABS: MAGNESIUM 1.7 mg/dl (1.7-2.5); PHOSPHORUS 4.3 mg/dl (2.5-4.9)
[2016-12-09] MEDS: ALBUTEROL/IPRATROPIUM (NEB) 3 ML AMP HHN SCH ×4 (08:00→19:18)
[2016-12-09] MEDS: Insulin ASPART slide scale (Novolog) SC SCH ×4 (08:00→20:54)
[2016-12-09] MEDS: MUPIROCIN 2% 22 GM OINT TOP SCH ×2 (08:27→20:51)
[2016-12-09] MEDS: POLYETHYLENE GLYCOL 17 GM PACKET PO SCH (08:27)
[2016-12-09] MEDS: HYDROmorphONE 1 MG/ML SYG IV PRN ×3 (08:27→18:10)
[2016-12-09] MEDS: SEVELAMER 800 MG TAB PO SCH ×3 (08:28→18:10)
[2016-12-09] MEDS: DOCUSATE SODIUM 100 MG CAP PO SCH ×2 (08:28→20:41)
[2016-12-09] MEDS: LOSARTAN 50 MG TAB PO SCH ×2 (08:28→20:42)
[2016-12-09] MEDS: VITAMIN B COMPLEX/VIT C CAP PO SCH ×2 (08:28→20:40)
[2016-12-09] MEDS: CHOLECALCIFEROL 400 UNITS TAB PO SCH (08:28)
[2016-12-09] MEDS: AMLODIPINE 5 MG TAB PO SCH ×2 (08:28→20:42)
[2016-12-09] MEDS: METOPROLOL 100 MG TAB PO SCH ×2 (08:29→20:41)
[2016-12-09] MEDS: SERTRALINE 100 MG TAB PO SCH (08:29)
[2016-12-09] MEDS: BISACODYL 10 MG SUPP PR SCH (08:29)
--- NOTE | 2016-12-09 08:29 | PN ---
Date/Time of Note Date/Time of Note DATE: 12/09/16 TIME: 08:26 Assessment/Plan VTE Prophylaxis VTE Prophylaxis Intervention: other Lines/Catheters IV [facility] Type (from [facility]): DORIS CATH Urinary Cath still in place: No Assessment/Plan Assessment/Plan Assessment/Plan 1. History of P-atrial fibrillation. Currently in NSR 2. History of CVA 3. Hypertension. 4. Renal failure, on dialysis. 5. History of dyslipidemia. 6. History of multiple infections. 7. Discitis. 8. Severe anemia. 9. History of deep vein thrombosis. 10. hyper K: to be corrected by HD. Adjust coumadin to goal INR 2-3 ECHO shows normal EF AND LA size. cont betablocker. HD as per renal will check daily PT/INR and adjust coumadin dosing. Cont PT THANK YOU. Subjective 24 Hr Interval Summary Free Text/Dictation d/w staff pt with c/o leg pain no chest pain or pressure. no palpitations or bleeding she has fatigue no bleeding. OBJECTIVE: General: no acute distress. Obese female. HEENT: NC/AT. pupils are equal. round. NECK: NO JVD. no stridor. CV: RRR. systolic murmur; no gallop or rubs. chest: s/p R HD access in place. PULM: no wheezing or rhonchi. GI: SOFT, NT, ND, no rebound or guarding. Obese Extremity: + B/L LE edema. no clubbing. neuro: awake and alert,. Psych: calm and pleasant rectal: deferred ECG 12/08/16: NSR. echo 12/08/16 reviewed: 1. Normal left ventricular systolic function. Normal left ventricular cavity size. Mild concentric left ventricular hypertrophy. Ejection fraction is visually estimated at 55 %. Abnormal Diastolic Function. 2. The left atrium is normal in size. 3. Mitral valve leaflets appear mildly thickened. Mild mitral annular calcification. Trace mitral regurgitation. 4. Normal appearance of the aortic valve. No significant aortic stenosis or insufficiency. 5. Normal appearance of the tricuspid valve. Estimated peak PA systolic pressure 42 mmHg. There is mild tricuspid regurgitation. 6. Normal size and normal respiratory collapse consistent with normal right atrial pressure. Exam/Review of Systems Vital Signs Vitals Vital Signs Date Time Temp Pulse Resp B/P Pulse Ox O2 Delivery O2 Flow Rate FiO2 12/09/16 08:00 98.6 80 18 147/68 96 12/09/16 06:49 2.0 12/08/16 20:00 Nasal Cannula Intake and Output 12/08/16 12/08/16 12/09/16 15:00 23:00 07:00 Intake Total 800 ml 400 ml 220 ml Balance 800 ml 400 ml 220 ml Results Result Diagram: 12/09/16 0619 12/09/16 0614 Results 24 hrs Laboratory Tests Test 12/08/16 12:08 12/08/16 17:20 12/08/16 21:02 12/09/16 06:14 Bedside Glucose 84 161 140 Sodium Level 137 Potassium Level 5.6 H Chloride Level 101 Carbon Dioxide Level 27 Anion Gap 15 Blood Urea Nitrogen 40 #H Creatinine 3.15 H Glucose Level 93 Calcium Level 8.0 L Total Bilirubin 0.0 L Direct Bilirubin 0.00 Indirect Bilirubin 0.0 Aspartate Amino Transf (AST/SGOT) 20 Alanine Aminotransferase (ALT/SGPT) 23 Alkaline Phosphatase 176 H Total Protein 6.5 Albumin 2.7 L Globulin 3.80 H Albumin/Globulin Ratio 0.71 Test 12/09/16 06:18 12/09/16 06:19 12/09/16 07:59 Prothrombin Time 14.8 H Prothrombin Time Ratio 1.2 INR International Normalized Ratio 1.16 Phosphorus Level 4.3 Magnesium Level 1.7 White Blood Count 11.1 H Red Blood Count 2.70 L Hemoglobin 8.1 L Hematocrit 26.8 L Mean Corpuscular Volume 99.3 Mean Corpuscular Hemoglobin 30.0 Mean Corpuscular Hemoglobin Concent 30.2 L Red Cell Distribution Width 17.0 H Platelet Count 359 Mean Platelet Volume 8.1 Neutrophils % 64.1 Lymphocytes % 22.1 Monocytes % 6.9 Eosinophils % 5.9 Basophils % 0.5 Nucleated Red Blood Cells % 0.0 Neutrophils # 7.1 Lymphocytes # 2.4 Monocytes # 0.8 Eosinophils # 0.7 H Basophils # 0.1 Nucleated Red Blood Cells # 0.0 Bedside Glucose 94 Medications Medications Current Medications Sertraline HCl (Zoloft) 100 mg DAILY PO Last administered on 12/08/16 08:22; Admin Dose 100 MG; Start 12/07/16 at 09:00 Amlodipine Besylate (Norvasc) 5 mg BID PO Last administered on 12/08/16 21:05; Admin Dose 5 MG; Start 12/06/16 at 21:00 Losartan Potassium (Cozaar) 50 mg BID PO Last administered on 12/08/16 08:23; Admin Dose 50 MG; Start 12/06/16 at 21:00 Atorvastatin Calcium (Lipitor) 80 mg DAILY@21 PO Last administered on 12/08/16 21:04; Admin Dose 80 MG; Start 12/06/16 at 21:00 Polyethylene Glycol (Miralax) 17 gm DAILY PO Last administered on 12/08/16 08: 21; Admin Dose 17 GM; Start 12/07/16 at 09:00 Docusate Sodium (Colace) 100 mg BID PO Last administered on 12/08/16 21:04; Admin Dose 100 MG; Start 12/06/16 at 21:00 Metoprolol Tartrate (Lopressor) 100 mg BID PO Last administered on 12/08/16 21: 06; Admin Dose 100 MG; Start 12/06/16 at 21:00 Vitamin B Complex/ Vitamin C (Berocca) 1 cap BID PO Last administered on 21:04; Admin Dose 1 CAP; Start 12/06/16 at 21:00 Cholecalciferol (Vitamin D) 400 units DAILY PO Last administered on 12/08/16 08 :22; Admin Dose 400 UNITS; Start 12/07/16 at 09:00 Pantoprazole (Protonix Tab) 40 mg DAILY@06 PO Last administered on 12/09/16 06: 29; Admin Dose 40 MG; Start 12/07/16 at 06:00 Gabapentin (Neurontin) 400 mg Q8 PO Last administered on 12/09/16 06:30; Admin Dose 400 MG; Start 12/06/16 at 22:00 Hydralazine HCl (Apresoline) 50 mg TID PO Last administered on 12/08/16 21:06; Admin Dose 50 MG; Start 12/06/16 at 21:00 Methocarbamol (Robaxin) 500 mg TID PRN PO MUSCLE SPASMS; Start 12/06/16 at 17: 00 Diphenhydramine HCl (Benadryl) 25 mg Q6H PRN PO ITCHING Last administered on 11:28; Admin Dose 25 MG; Start 12/06/16 at 15:30 Miscellaneous Information 1 ea NOTE XX ; Start 12/06/16 at 16:00 Glucose (Glutose) 15 gm Q15M PRN PO DECREASED GLUCOSE; Start 12/06/16 at 16:00 Glucose (Glutose) 22.5 gm Q15M PRN PO DECREASED GLUCOSE; Start 12/06/16 at 16: 00 Dextrose (D50w Syringe) 25 ml Q15M PRN IV DECREASED GLUCOSE; Start 12/06/16 at 16:00 Dextrose (D50w Syringe) 50 ml Q15M PRN IV DECREASED GLUCOSE; Start 12/06/16 at 16:00 Glucagon (Glucagen) 1 mg Q15M PRN IM DECREASED GLUCOSE; Start 12/06/16 at 16:00 Glucose (Glutose) 15 gm Q15M PRN BUCCAL DECREASED GLUCOSE; Start 12/06/16 at 16 :00 Senna (Senokot) 1 tab HS PO Last administered on 12/08/16 21:04; Admin Dose 1 TAB; Start 12/06/16 at 21:00 Acetaminophen (Tylenol Tab) 650 mg Q4H PRN PO PAIN; Start 12/06/16 at 17:00 Magnesium Hydroxide (Milk Of Mag) 30 ml BID PRN PO CONSTIPATION; Start at 17:00 Lactulose (Enulose) 20 gm DAILY PRN PO CONSTIPATION; Start 12/06/16 at 17:00 Oxycodone HCl (Oxycontin) 10 mg Q8 PO Last administered on 12/09/16 06:30; Admin Dose 10 MG; Start 12/07/16 at 11:30 Bisacodyl (Dulcolax Supp) 10 mg DAILY CA ; Start 12/08/16 at 09:00 Hydromorphone HCl (Dilaudid) 1 mg Q4H PRN IV PAIN Last administered on 12/08/16 18:53; Admin Dose 1 MG; Start 12/07/16 at 11:30 Mupirocin (Bactroban) 1 applic BID TOP Last administered on 12/08/16 21:17; Admin Dose 1 APPLIC; Start 12/07/16 at 21:00; Stop 12/14/16 at 20:59 Warfarin Sodium (Coumadin) 5 mg DAILY@17 PO Last administered on 12/08/16 17:38 ; Admin Dose 5 MG; Start 12/08/16 at 17:00 TAMERA BAILEY MD Dec 09, 2016 08:29
[2016-12-09] MEDS: DIPHENHYDRAMINE 25 MG CAP PO PRN (10:33)
--- NOTE | 2016-12-09 10:34 | PN ---
DATE: 12/09/2016 SUBJECTIVE DATA: The patient is stable. No acute events overnight. No fevers, chills, nausea or vomiting. No shortness of breath. The patient continues to have chronic pain. No other events noted. OBJECTIVE DATA: VITAL SIGNS: Blood pressure is 147/68, respirations 18, pulse 88, temperature 98.6. HEENT: Head is normocephalic. Pupils are reactive to light. NECK: Supple. HEART: Regular rate. LUNGS: Diminished breath sounds at base. ABDOMEN: Soft, nontender to palpation. No rebound or guarding. EXTREMITIES: Negative for clubbing, cyanosis, no edema. Dermatologic rashes. MUSCULOSKELETAL: No joint effusion. NEUROLOGIC: No change in exam. MEDICATION: Reviewed. LABORATORY AND DIAGNOSTIC DATA: Shows sodium 137, potassium 6, chloride 101, BUN 42, creatinine 3.15. White count 9.1, hemoglobin 8.1, hematocrit 26.8, platelet count 359. ASSESSMENT AND PLAN: 1. End-stage renal disease. The patient on dialysis Wednesday, Wednesday, Wednesday. Plan for hemodialysis today. Will dialyze 3 hours on 2K bath, calcium 2.5. 2. Anemia. Monitor H and H levels. Will give Epogen with dialysis. 3. Mineral bone disorder. Monitor calcium and phosphorus levels. 4. Hypertension. Continue current blood pressure regimen. 5. History of osteomyelitis, patient status post thoracic spine laminectomy. The patient has completed antibiotic therapy. Will continue to monitor. Follow up with Infectious Disease. 6. Mild leukocytosis, possibly reactive. Continue to monitor. 7. T7 paraplegia. Continue PT/OT. 8. History of deep vein thrombosis. Continue Coumadin. Monitor INR. 9. Anxiety disorder, depression. Continue current medical management. 10. Diabetes. Continue Accu-Cheks and insulin sliding scale. 11. Paroxysmal atrial fibrillation. Currently sinus rhythm. Continue Coumadin. Monitor INR. 12. History of chronic obstructive pulmonary disease (COPD). Continue medical management. 13. Encephalopathy, improved. 14. History of cerebrovascular accident (CVA). 15. History of narcotic dependence. Dictated By: Buck Seals DO /saul/yamini /Document#: [id number]
[2016-12-09] MEDS: METHOCARBAMOL 500 MG TAB PO PRN (10:36)
--- NOTE | 2016-12-09 11:18 | CONS ---
Date/Time of Note Date/Time of Note DATE: 12/09/16 TIME: 11:15 Consult Date/Type/Reason Admit Date/Time Dec 06, 2016 at 10:56 Subjective Activity tolerance improving Objective Lungs clear abdomen soft Maximum assist transfer Vital Signs Date Time Temp Pulse Resp B/P Pulse Ox O2 Delivery O2 Flow Rate FiO2 12/09/16 09:54 94 21 12/09/16 09:53 83 18 12/09/16 08:00 98.6 147/68 12/09/16 08:00 Nasal Cannula 2.0 Intake and Output 12/08/16 12/08/16 12/09/16 15:00 23:00 07:00 Intake Total 800 ml 400 ml 220 ml Balance 800 ml 400 ml 220 ml Results/Medications Result Diagram: 12/09/16 0619 12/09/16 0614 Results 24 hrs Laboratory Tests Test 12/08/16 12:08 12/08/16 17:20 12/08/16 21:02 12/09/16 06:14 Bedside Glucose 84 161 140 Sodium Level 137 Potassium Level 5.6 H Chloride Level 101 Carbon Dioxide Level 27 Anion Gap 15 Blood Urea Nitrogen 40 #H Creatinine 3.15 H Glucose Level 93 Calcium Level 8.0 L Total Bilirubin 0.0 L Direct Bilirubin 0.00 Indirect Bilirubin 0.0 Aspartate Amino Transf (AST/SGOT) 20 Alanine Aminotransferase (ALT/SGPT) 23 Alkaline Phosphatase 176 H Total Protein 6.5 Albumin 2.7 L Globulin 3.80 H Albumin/Globulin Ratio 0.71 Test 12/09/16 06:18 12/09/16 06:19 12/09/16 07:59 Prothrombin Time 14.8 H Prothrombin Time Ratio 1.2 INR International Normalized Ratio 1.16 Phosphorus Level 4.3 Magnesium Level 1.7 White Blood Count 11.1 H Red Blood Count 2.70 L Hemoglobin 8.1 L Hematocrit 26.8 L Mean Corpuscular Volume 99.3 Mean Corpuscular Hemoglobin 30.0 Mean Corpuscular Hemoglobin Concent 30.2 L Red Cell Distribution Width 17.0 H Platelet Count 359 Mean Platelet Volume 8.1 Neutrophils % 64.1 Lymphocytes % 22.1 Monocytes % 6.9 Eosinophils % 5.9 Basophils % 0.5 Nucleated Red Blood Cells % 0.0 Neutrophils # 7.1 Lymphocytes # 2.4 Monocytes # 0.8 Eosinophils # 0.7 H Basophils # 0.1 Nucleated Red Blood Cells # 0.0 Bedside Glucose 94 Medications Current Medications Sertraline HCl (Zoloft) 100 mg DAILY PO Last administered on 12/09/16 08:29; Admin Dose 100 MG; Start 12/07/16 at 09:00 Amlodipine Besylate (Norvasc) 5 mg BID PO Last administered on 12/09/16 08:28; Admin Dose 5 MG; Start 12/06/16 at 21:00 Losartan Potassium (Cozaar) 50 mg BID PO Last administered on 12/09/16 08:28; Admin Dose 50 MG; Start 12/06/16 at 21:00 Atorvastatin Calcium (Lipitor) 80 mg DAILY@21 PO Last administered on 12/08/16 21:04; Admin Dose 80 MG; Start 12/06/16 at 21:00 Polyethylene Glycol (Miralax) 17 gm DAILY PO Last administered on 12/09/16 08: 27; Admin Dose 17 GM; Start 12/07/16 at 09:00 Docusate Sodium (Colace) 100 mg BID PO Last administered on 12/09/16 08:28; Admin Dose 100 MG; Start 12/06/16 at 21:00 Metoprolol Tartrate (Lopressor) 100 mg BID PO Last administered on 12/09/16 08: 29; Admin Dose 100 MG; Start 12/06/16 at 21:00 Vitamin B Complex/ Vitamin C (Berocca) 1 cap BID PO Last administered on 08:28; Admin Dose 1 CAP; Start 12/06/16 at 21:00 Cholecalciferol (Vitamin D) 400 units DAILY PO Last administered on 12/09/16 08 :28; Admin Dose 400 UNITS; Start 12/07/16 at 09:00 Pantoprazole (Protonix Tab) 40 mg DAILY@06 PO Last administered on 12/09/16 06: 29; Admin Dose 40 MG; Start 12/07/16 at 06:00 Gabapentin (Neurontin) 400 mg Q8 PO Last administered on 12/09/16 06:30; Admin Dose 400 MG; Start 12/06/16 at 22:00 Hydralazine HCl (Apresoline) 50 mg TID PO Last administered on 12/09/16 08:29; Admin Dose 50 MG; Start 12/06/16 at 21:00 Methocarbamol (Robaxin) 500 mg TID PRN PO MUSCLE SPASMS Last administered on 10:36; Admin Dose 500 MG; Start 12/06/16 at 17:00 Diphenhydramine HCl (Benadryl) 25 mg Q6H PRN PO ITCHING Last administered on 10:33; Admin Dose 25 MG; Start 12/06/16 at 15:30 Miscellaneous Information 1 ea NOTE XX ; Start 12/06/16 at 16:00 Glucose (Glutose) 15 gm Q15M PRN PO DECREASED GLUCOSE; Start 12/06/16 at 16:00 Glucose (Glutose) 22.5 gm Q15M PRN PO DECREASED GLUCOSE; Start 12/06/16 at 16: 00 Dextrose (D50w Syringe) 25 ml Q15M PRN IV DECREASED GLUCOSE; Start 12/06/16 at 16:00 Dextrose (D50w Syringe) 50 ml Q15M PRN IV DECREASED GLUCOSE; Start 12/06/16 at 16:00 Glucagon (Glucagen) 1 mg Q15M PRN IM DECREASED GLUCOSE; Start 12/06/16 at 16:00 Glucose (Glutose) 15 gm Q15M PRN BUCCAL DECREASED GLUCOSE; Start 12/06/16 at 16 :00 Senna (Senokot) 1 tab HS PO Last administered on 12/08/16 21:04; Admin Dose 1 TAB; Start 12/06/16 at 21:00 Acetaminophen (Tylenol Tab) 650 mg Q4H PRN PO PAIN; Start 12/06/16 at 17:00 Magnesium Hydroxide (Milk Of Mag) 30 ml BID PRN PO CONSTIPATION; Start at 17:00 Lactulose (Enulose) 20 gm DAILY PRN PO CONSTIPATION; Start 12/06/16 at 17:00 Oxycodone HCl (Oxycontin) 10 mg Q8 PO Last administered on 12/09/16 06:30; Admin Dose 10 MG; Start 12/07/16 at 11:30 Bisacodyl (Dulcolax Supp) 10 mg DAILY [place] ; Start 12/08/16 at 09:00 Mupirocin (Bactroban) 1 applic BID TOP Last administered on 12/09/16 08:27; Admin Dose 1 APPLIC; Start 12/07/16 at 21:00; Stop 12/14/16 at 20:59 Warfarin Sodium (Coumadin) 5 mg DAILY@17 PO Last administered on 12/08/16t 17:38 ; Admin Dose 5 MG; Start 12/08/16 at 17:00 Hydromorphone HCl (Dilaudid) 0.5 mg Q4H PRN IV PAIN 7-02/16; Start 12/09/16 at 11:30 Assessment/Plan Additional Assessment/Plan Rehabilitation-T7 incomplete paraplegia due to epidural abscess/osteomyelitis- status post Thoracic laminectomy drainage of abscess Patient tolerating increased activity at wheelchair level Pulmonary -post operative respiratory failure requiring intubation, with eventual extubation, currently stable Toxic metabolic encephalopathy-continue treatment plan Diabetes Mellitus type 2 ESRD on HD Afib Coronary Artery Disease history of DVT Hypertension Hypercholesterolemia COPD history of CVA anxiety depression ALINE CORREIA MD Dec 09, 2016 11:18
--- NOTE | 2016-12-09 15:34 | RADRPT ---
Vent Rate: 73 bpm RR Interval: 0 msec MD Interval: 160 msec QRS Duration: 78 msec QT Interval: 402 msec QTC Interval: 442 msec P-R-T [place]: 70 - 0 - 73 degrees Sinus rhythm with premature supraventricular complexes Otherwise normal ECG Electronically Signed By: Nicola Rodriguez [id number]
[2016-12-09] MEDS: WARFARIN 5 MG TAB PO SCH (18:10)
[2016-12-09] MEDS: SENNA TAB PO SCH (20:41)
[2016-12-09] MEDS: ATORVASTATIN 80 MG TAB PO SCH (20:41)
[2016-12-10 02:45] VITALS: BP 152/68; RESP 19
--- NOTE | 2016-12-10 03:38 | CONS ---
DATE OF ADMISSION: 12/06/2016 DATE OF CONSULTATION: 12/09/2016 REASON FOR CONSULTATION: This consultation was requested by Dr. Mynor Cole in order to evaluate the cognitive and emotional functioning of this patient related to her present medical condition. HISTORY OF PRESENT ILLNESS: The patient is a 51-year-old female. The patient has a history of multiple medical problems, including type 2 diabetes, end-stage renal disease with hemodialysis, coronary artery disease, hypertension, and history of CVA with good functional recovery. The patient was cleared medically after being admitted to [facility] and then transferred to the acute rehabilitation unit for acute multidisciplinary rehabilitation. The patient had been on the unit approximately 2 years ago. The patient remembers seeing me 2 years ago. I also remembered seeing the patient but was not sure about how long ago it was. The patient is an extreme pain. The patient's daughter reported to the nursing staff that the patient was addicted to pain meds. The patient denies this. The patient does report that her pain level was at a 10 and had just received some pain medication. The patient is anxious and depressed. The patient is frustrated about all her medical problems. The patient had recent back surgery that somehow got infected and caused her some major problems. The patient's daughter reported to the nursing staff that the patient had attempted suicide in the past and was suicidal. The patient denies that she is suicidal and that she ever had a suicide attempt. The patient does report that she has been on antidepressant medications in the past but does not remember that she had been on them recently. The patient is concerned about her present medical condition. The patient is focused on her pain. FAMILY/SOCIAL HISTORY: The patient reports that she lives with her . The patient has 2 daughters, ages 34 and 28, who come by to help. The patient does want to return home after discharge. It is an apartment in [facility]. MEDICATION: The patient is currently on: 1. Zoloft 100 mg daily. 2. Neurontin 400 mg q.8 hours. The patient reports that the Neurontin is for muscle spasms. SUBSTANCE USE: The patient denies any use of alcohol or other drugs. The patient reports that she does not smoke. MENTAL STATUS EXAMINATION: Appearance: The patient was seen in bed. She is of average height and overweight. The patient is right-handed. Behavior: The patient was cooperative during the consultation. The patient did attempt to answer all questions presented to her by the interviewer. Mood and affect: The patient's mood appears to be depressed. Affect does appear to be anxious. The patient does report depression and anxiety. The present time, but is more focused on her pain. Perception: Patient reports no hallucinations or delusions. The patient was alert to person, place, situation, and time. Memory and cognition: The patient's memory and cognition were basically intact. She was able to remember recent and remote events. She was able to say the name of the hospital. The patient was able to give the month, the day, and the year. The patient was able to say who the sales and marketing vice president is. She could not say who the governor of the state is or the mayor of the [facility] is. The patient was able to spell "world" backwards. The patient was able to do one serial 7 subtraction but then could not go any further. Overall, given the patient's present medical condition, her cognitions appear to be adequate. Intelligence: Intelligence appears to fall in the average range. Insight: Fair. Judgment: Fair. Thought content: The patient is concerned about her present medical condition. The patient does want to return to her previous level of functioning. The patient is concerned about all her medical problems. The patient is anxious and depressed about all the issues she is going through. DISCUSSION: The patient can likely benefit from some cognitive/behavioral psychotherapy while she on the unit. The psychotherapy would focus on her ability to cope with all her medical problems. And her underlying level of anxiety and depression that she is experiencing. DIAGNOSTIC IMPRESSION: F 33.1, major depressive disorder, recurrent, moderate. Thank you very much, Dr. Mynor Cole, for referring this individual. Please do not hesitate to call if they have additional questions. Dictated By: Marbin Cronin, PHD /fnt/carrie /Document#: [id number]
[2016-12-10] MEDS: PANTOPRAZOLE (EC) 40 MG TAB PO SCH (06:23)
[2016-12-10] MEDS: oxyCODONE (CR) 10 MG TAB [oxyCONTIN] PO SCH ×3 (06:23→22:53)
[2016-12-10] MEDS: GABAPENTIN 400 MG CAP PO SCH ×3 (06:23→22:53)
[2016-12-10] MEDS: Insulin ASPART slide scale (Novolog) SC SCH ×4 (07:05→20:50)
[2016-12-10 07:06] LABS: INR 1.16; PROTIME 14.9 Sec (12.2-14.2); PT RATIO 1.2
[2016-12-10 07:31] VITALS: BP 176/79; RESP 17
[2016-12-10] MEDS: HYDROmorphONE 1 MG/ML SYG IV PRN ×3 (07:31→17:21)
--- NOTE | 2016-12-10 08:22 | PN ---
Date/Time of Note Date/Time of Note DATE: 12/10/16 TIME: 08:21 Assessment/Plan VTE Prophylaxis VTE Prophylaxis Intervention: other Lines/Catheters IV Catheter Type (from [facility]): DORIS CATH Urinary Cath still in place: No Reason Cath still needed: other (indicate) Assessment/Plan Chief Complaint/Hosp Course 1. History of P-atrial fibrillation. Currently in NSR 2. History of CVA 3. Hypertension. 4. Renal failure, on dialysis. 5. History of dyslipidemia. 6. History of multiple infections. 7. Discitis. 8. Severe anemia. 9. History of deep vein thrombosis. 10. hyper K: to be corrected by HD. Adjust coumadin to goal INR 2-3 ECHO shows normal EF AND LA size. cont betablocker. HD as per renal will check daily PT/INR and adjust coumadin dosing. Cont PT THANK YOU Problems: Subjective 24 Hr Interval Summary Free Text/Dictation d/w staff pt with c/o leg pain no chest pain or pressure. no palpitations or bleeding she has fatigue she c/o left lower abdominal pain but is able to eat with no N/V no bleeding. OBJECTIVE: General: no acute distress. Obese female. HEENT: NC/AT. pupils are equal. round. NECK: NO JVD. no stridor. CV: RRR. systolic murmur; no gallop or rubs. chest: s/p R HD access in place. PULM: no wheezing or rhonchi. GI: SOFT, NT, ND, no rebound or guarding. Obese Extremity: + B/L LE edema. no clubbing. neuro: awake and alert,. Psych: calm and pleasant rectal: deferred ECG 12/08/16: NSR. echo 12/08/16 reviewed: 1. Normal left ventricular systolic function. Normal left ventricular cavity size. Mild concentric left ventricular hypertrophy. Ejection fraction is visually estimated at 55 %. Abnormal Diastolic Function. 2. The left atrium is normal in size. 3. Mitral valve leaflets appear mildly thickened. Mild mitral annular calcification. Trace mitral regurgitation. 4. Normal appearance of the aortic valve. No significant aortic stenosis or insufficiency. 5. Normal appearance of the tricuspid valve. Estimated peak PA systolic pressure 42 mmHg. There is mild tricuspid regurgitation. 6. Normal size and normal respiratory collapse consistent with normal right atrial pressure. Exam/Review of Systems Vital Signs Vitals Vital Signs Date Time Temp Pulse Resp B/P Pulse Ox O2 Delivery O2 Flow Rate FiO2 12/10/16 07:31 98.6 78 17 176/79 96 12/09/16 20:00 Nasal Cannula 2.0 12/09/16 19:20 21 Intake and Output 12/09/16 12/09/16 12/10/16 15:00 23:00 07:00 Intake Total 660 ml 740 ml Output Total 3300 ml Balance -2640 ml 740 ml Results Result Diagram: 12/09/16 0619 12/09/16 0614 Results 24 hrs Laboratory Tests Test 12/09/16 12:02 12/09/16 18:06 12/09/16 20:10 12/10/16 02:03 Bedside Glucose 110 170 168 117 Test 12/10/16 05:55 12/10/16 07:32 Prothrombin Time 14.9 H Prothrombin Time Ratio 1.2 INR International Normalized Ratio 1.16 Bedside Glucose 107 Medications Medications Current Medications Sertraline HCl (Zoloft) 100 mg DAILY PO Last administered on 12/09/16 08:29; Admin Dose 100 MG; Start 12/07/16 at 09:00 Amlodipine Besylate (Norvasc) 5 mg BID PO Last administered on 12/09/16 20:42; Admin Dose 5 MG; Start 12/06/16 at 21:00 Losartan Potassium (Cozaar) 50 mg BID PO Last administered on 12/09/16 20:42; Admin Dose 50 MG; Start 12/06/16 at 21:00 Atorvastatin Calcium (Lipitor) 80 mg DAILY@21 PO Last administered on 12/09/16 20:41; Admin Dose 80 MG; Start 12/06/16 at 21:00 Polyethylene Glycol (Miralax) 17 gm DAILY PO Last administered on 12/09/16 08: 27; Admin Dose 17 GM; Start 12/07/16 at 09:00 Docusate Sodium (Colace) 100 mg BID PO Last administered on 12/09/16 20:41; Admin Dose 100 MG; Start 12/06/16 at 21:00 Metoprolol Tartrate (Lopressor) 100 mg BID PO Last administered on 12/09/16 20: 41; Admin Dose 100 MG; Start 12/06/16 at 21:00 Vitamin B Complex/ Vitamin C (Berocca) 1 cap BID PO Last administered on 20:40; Admin Dose 1 CAP; Start 12/06/16 at 21:00 Cholecalciferol (Vitamin D) 400 units DAILY PO Last administered on 12/09/16 08 :28; Admin Dose 400 UNITS; Start 12/07/16 at 09:00 Pantoprazole (Protonix Tab) 40 mg DAILY@06 PO Last administered on 12/10/16 06: 23; Admin Dose 40 MG; Start 12/07/16 at 06:00 Gabapentin (Neurontin) 400 mg Q8 PO Last administered on 12/10/16 06:23; Admin Dose 400 MG; Start 12/06/16 at 22:00 Hydralazine HCl (Apresoline) 50 mg TID PO Last administered on 12/09/16 20:43; Admin Dose 50 MG; Start 12/06/16 at 21:00 Methocarbamol (Robaxin) 500 mg TID PRN PO MUSCLE SPASMS Last administered on 10:36; Admin Dose 500 MG; Start 12/06/16 at 17:00 Diphenhydramine HCl (Benadryl) 25 mg Q6H PRN PO ITCHING Last administered on 10:33; Admin Dose 25 MG; Start 12/06/16 at 15:30 Miscellaneous Information 1 ea NOTE XX ; Start 12/06/16 at 16:00 Glucose (Glutose) 15 gm Q15M PRN PO DECREASED GLUCOSE; Start 12/06/16 at 16:00 Glucose (Glutose) 22.5 gm Q15M PRN PO DECREASED GLUCOSE; Start 12/06/16 at 16: 00 Dextrose (D50w Syringe) 25 ml Q15M PRN IV DECREASED GLUCOSE; Start 12/06/16 at 16:00 Dextrose (D50w Syringe) 50 ml Q15M PRN IV DECREASED GLUCOSE; Start 12/06/16 at 16:00 Glucagon (Glucagen) 1 mg Q15M PRN IM DECREASED GLUCOSE; Start 12/06/16 at 16:00 Glucose (Glutose) 15 gm Q15M PRN BUCCAL DECREASED GLUCOSE; Start 12/06/16 at 16 :00 Senna (Senokot) 1 tab HS PO Last administered on 12/09/16 20:41; Admin Dose 1 TAB; Start 12/06/16 at 21:00 Acetaminophen (Tylenol Tab) 650 mg Q4H PRN PO PAIN; Start 12/06/16 at 17:00 Magnesium Hydroxide (Milk Of Mag) 30 ml BID PRN PO CONSTIPATION; Start at 17:00 Lactulose (Enulose) 20 gm DAILY PRN PO CONSTIPATION; Start 12/06/16 at 17:00 Oxycodone HCl (Oxycontin) 10 mg Q8 PO Last administered on 12/10/16 06:23; Admin Dose 10 MG; Start 12/07/16 at 11:30 Bisacodyl (Dulcolax Supp) 10 mg DAILY [place] ; Start 12/08/16 at 09:00 Mupirocin (Bactroban) 1 applic BID TOP Last administered on 12/09/16 20:51; Admin Dose 1 APPLIC; Start 12/07/16 at 21:00; Stop 12/14/16 at 20:59 Hydromorphone HCl (Dilaudid) 0.5 mg Q4H PRN IV PAIN Last administered on 12/10/16 07:31; Admin Dose 0.5 MG; Start 12/09/16 at 11:30 Warfarin Sodium (Coumadin) 8 mg DAILY@17 PO ; Start 12/10/16 at 17:00 TAMERA BAILEY MD Dec 10, 2016 08:22
[2016-12-10] MEDS: ALBUTEROL/IPRATROPIUM (NEB) 3 ML AMP HHN SCH ×3 (08:44→19:30)
[2016-12-10] MEDS: METOPROLOL 100 MG TAB PO SCH ×2 (09:00→20:48)
[2016-12-10] MEDS: DOCUSATE SODIUM 100 MG CAP PO SCH ×2 (09:00→20:46)
[2016-12-10] MEDS: BISACODYL 10 MG SUPP PR SCH (09:00)
[2016-12-10] MEDS: SEVELAMER 800 MG TAB PO SCH ×3 (10:37→17:23)
[2016-12-10] MEDS: VITAMIN B COMPLEX/VIT C CAP PO SCH ×2 (10:37→20:46)
[2016-12-10] MEDS: MUPIROCIN 2% 22 GM OINT TOP SCH ×2 (10:38→20:55)
[2016-12-10] MEDS: CHOLECALCIFEROL 400 UNITS TAB PO SCH (10:38)
[2016-12-10] MEDS: LOSARTAN 50 MG TAB PO SCH ×2 (10:45→20:47)
[2016-12-10] MEDS: POLYETHYLENE GLYCOL 17 GM PACKET PO SCH (10:46)
[2016-12-10] MEDS: AMLODIPINE 5 MG TAB PO SCH ×2 (10:48→20:47)
--- NOTE | 2016-12-10 11:20 | PN ---
DATE: 12/10/2016 SUBJECTIVE DATA: Patient is stable. No events overnight. No fevers, chills, nausea, vomiting. The patient's pain is still present but controlled. OBJECTIVE DATA: VITAL SIGNS: Blood pressure is 176/79, respirations 18, pulse 78, temperature 98.6. HEENT: Head is normocephalic. NECK: Supple. HEART: Regular rate. LUNGS: Show diminished breath sounds at the base. ABDOMEN: Soft, nontender to palpation. No rebound or guarding. EXTREMITIES: Negative for clubbing, cyanosis. Trace edema. DERMATOLOGIC: Clean. No rashes. MUSCULOSKELETAL: No joint effusion. NEUROLOGIC: No change in exam. MEDICATIONS: Reviewed. LABORATORY AND DIAGNOSTIC DATA: Reviewed. No new labs. ASSESSMENT AND PLAN: 1. End-stage renal disease. The patient has dialysis Wednesday, Wednesday, Wednesday. Plan for dialysis tomorrow. 2. Anemia. Monitor H and H levels. 3. Mineral bone disorder. Monitor calcium and phosphorus levels. 4. Hypertension. Continue current blood pressure regimen. 5. History of osteomyelitis, status post thoracic spinal laminectomy. Patient has completed antibiotic course. Continue to monitor. Follow up with Infectious Disease. 6. Mild leukocytosis, likely reactive. We will continue to observe. 7. T7 paraplegia. Continue physical therapy and occupational therapy. 8. History of deep venous thrombosis. Continue Coumadin. Follow up INR. 9. Anxiety/depression. Continue current medical management. 10. Diabetes. Continue current insulin regimen. 11. Paroxysmal atrial fibrillation, currently sinus rhythm. The patient is on Coumadin. Follow up INR. 12. History of chronic obstructive pulmonary disease. 13. Encephalopathy, improved. 14. History of cerebrovascular accident. Dictated By: Buck Seals DO /saul/josee /Document#: [id number]
--- NOTE | 2016-12-10 11:31 | CONS ---
Date/Time of Note Date/Time of Note DATE: 12/10/16 TIME: 11:30 Consult Date/Type/Reason Admit Date/Time Dec 06, 2016 at 10:56 Subjective Patient feeling better Objective Lungs clear abdomen soft Max assist of 1 person transfer Vital Signs Date Time Temp Pulse Resp B/P Pulse Ox O2 Delivery O2 Flow Rate FiO2 12/10/16 08:45 95 1.5 12/10/16 08:45 79 20 Nasal Cannula 12/10/16 07:31 98.6 176/79 12/09/16 19:20 21 Intake and Output 12/09/16 12/09/16 12/10/16 15:00 23:00 07:00 Intake Total 660 ml 740 ml Output Total 3300 ml Balance -2640 ml 740 ml Results/Medications Result Diagram: 12/09/16 0619 12/09/16 0614 Results 24 hrs Laboratory Tests Test 12/09/16 12:02 12/09/16 18:06 12/09/16 20:10 12/10/16 02:03 Bedside Glucose 110 170 168 117 Test 12/10/16 05:55 12/10/16 07:32 Prothrombin Time 14.9 H Prothrombin Time Ratio 1.2 INR International Normalized Ratio 1.16 Bedside Glucose 107 Medications Current Medications Sertraline HCl (Zoloft) 100 mg DAILY PO Last administered on 12/09/16 08:29; Admin Dose 100 MG; Start 12/07/16 at 09:00 Amlodipine Besylate (Norvasc) 5 mg BID PO Last administered on 12/10/16 10:48; Admin Dose 5 MG; Start 12/06/16 at 21:00 Losartan Potassium (Cozaar) 50 mg BID PO Last administered on 12/09/16 20:42; Admin Dose 50 MG; Start 12/06/16 at 21:00 Atorvastatin Calcium (Lipitor) 80 mg DAILY@21 PO Last administered on 12/09/16 20:41; Admin Dose 80 MG; Start 12/06/16 at 21:00 Polyethylene Glycol (Miralax) 17 gm DAILY PO Last administered on 12/09/16 08: 27; Admin Dose 17 [place]; Start 12/07/16 at 09:00 Docusate Sodium (Colace) 100 mg BID PO Last administered on 12/09/16 20:41; Admin Dose 100 MG; Start 12/06/16 at 21:00 Metoprolol Tartrate (Lopressor) 100 mg BID PO Last administered on 12/10/16 09: 00; Admin Dose 100 MG; Start 12/06/16 at 21:00 Vitamin B Complex/ Vitamin C (Berocca) 1 cap BID PO Last administered on 10:37; Admin Dose 1 CAP; Start 12/06/16 at 21:00 Cholecalciferol (Vitamin D) 400 units DAILY PO Last administered on 12/10/16 10 :38; Admin Dose 400 UNITS; Start 12/07/16 at 09:00 Pantoprazole (Protonix Tab) 40 mg DAILY@06 PO Last administered on 12/10/16 06: 23; Admin Dose 40 MG; Start 12/07/16 at 06:00 Gabapentin (Neurontin) 400 mg Q8 PO Last administered on 12/10/16 06:23; Admin Dose 400 MG; Start 12/06/16 at 22:00 Hydralazine HCl (Apresoline) 50 mg TID PO Last administered on 12/09/16 20:43; Admin Dose 50 MG; Start 12/06/16 at 21:00 Methocarbamol (Robaxin) 500 mg TID PRN PO MUSCLE SPASMS Last administered on 10:36; Admin Dose 500 MG; Start 12/06/16 at 17:00 Diphenhydramine HCl (Benadryl) 25 mg Q6H PRN PO ITCHING Last administered on 10:33; Admin Dose 25 MG; Start 12/06/16 at 15:30 Miscellaneous Information 1 ea NOTE XX ; Start 12/06/16 at 16:00 Glucose (Glutose) 15 gm Q15M PRN PO DECREASED GLUCOSE; Start 12/06/16 at 16:00 Glucose (Glutose) 22.5 gm Q15M PRN PO DECREASED GLUCOSE; Start 12/06/16 at 16: 00 Dextrose (D50w Syringe) 25 ml Q15M PRN IV DECREASED GLUCOSE; Start 12/06/16 at 16:00 Dextrose (D50w Syringe) 50 ml Q15M PRN IV DECREASED GLUCOSE; Start 12/06/16 at 16:00 Glucagon (Glucagen) 1 mg Q15M PRN IM DECREASED GLUCOSE; Start 12/06/16 at 16:00 Glucose (Glutose) 15 gm Q15M PRN BUCCAL DECREASED GLUCOSE; Start 12/06/16 at 16 :00 Senna (Senokot) 1 tab HS PO Last administered on 12/09/16 20:41; Admin Dose 1 TAB; Start 12/06/16 at 21:00 Acetaminophen (Tylenol Tab) 650 mg Q4H PRN PO PAIN; Start 12/06/16 at 17:00 Magnesium Hydroxide (Milk Of Mag) 30 ml BID PRN PO CONSTIPATION; Start at 17:00 Lactulose (Enulose) 20 gm DAILY PRN PO CONSTIPATION; Start 12/06/16 at 17:00 Oxycodone HCl (Oxycontin) 10 mg Q8 PO Last administered on 12/10/16 06:23; Admin Dose 10 MG; Start 12/07/16 at 11:30 Bisacodyl (Dulcolax Supp) 10 mg DAILY [place] ; Start 12/08/16 at 09:00 Mupirocin (Bactroban) 1 applic BID TOP Last administered on 12/10/16 10:38; Admin Dose 1 APPLIC; Start 12/07/16 at 21:00; Stop 12/14/16 at 20:59 Hydromorphone HCl (Dilaudid) 0.5 mg Q4H PRN IV PAIN Last administered on 12/10/16 07:31; Admin Dose 0.5 MG; Start 12/09/16 at 11:30 Warfarin Sodium (Coumadin) 8 mg DAILY@17 PO ; Start 12/10/16 at 17:00 Assessment/Plan Additional Assessment/Plan Rehabilitation-T7 incomplete paraplegia due to epidural abscess/osteomyelitis- status post Thoracic laminectomy drainage of abscess Patient making steady functional gains, tolerated shower activity today Pulmonary -post operative respiratory failure requiring intubation, with eventual extubation, currently stable Toxic metabolic encephalopathy-continue treatment plan Diabetes Mellitus type 2 ESRD on HD Afib Coronary Artery Disease history of DVT Hypertension Hypercholesterolemia COPD history of CVA anxiety depression ALINE CORREIA MD Dec 10, 2016 11:31
[2016-12-10 14:00] VITALS: BP 157/70; RESP 15
[2016-12-10] MEDS: SERTRALINE 100 MG TAB PO SCH (14:57)
--- NOTE | 2016-12-10 16:07 | CONS ---
Date/Time of Note Date/Time of Note DATE: 12/10/16 TIME: 16:06 Consultation Date/Type/Reason Admit Date/Time Dec 06, 2016 at 10:56 Date of Consultation: Dec 10, 2016 Type of Consultation: ID Reason for Consultation Antibiotic management Eyes: other (decreased vision) ENT: No bleeding, No congestion, No discharge, No dysphagia, No no complaints, No other, No pain, No sore throat Respiratory: No cough, No no complaints, No other, No pain, No pleuritic pain, No shortness of breath, No sputum, No wheezing Cardiovascular: No chest pain, No edema, No lightheadedness, No no complaints, No orthopenea, No other, No palpitations, No paroxysmal nocturnal dyspnea Gastrointestinal: constipation Genitourinary: No bleeding, No discharge, No dysuria, No flank pain, No hematuria, No no complaints, No other Social History Smoking Status: Never smoker Exam/Review of Systems Vital Signs Vitals Vital Signs Date Time Temp Pulse Resp B/P Pulse Ox O2 Delivery O2 Flow Rate FiO2 12/10/16 15:15 77 18 93 21 12/10/16 14:00 98.1 157/70 12/10/16 08:45 1.5 12/10/16 08:45 Nasal Cannula Intake and Output 12/09/16 12/09/16 12/10/16 15:00 23:00 07:00 Intake Total 660 ml 740 ml Output Total 3300 ml Balance -2640 ml 740 ml Results Result Diagram: 12/09/16 0619 12/09/16 0614 Results 24 hrs Laboratory Tests Test 12/09/16 18:06 12/09/16 20:10 12/10/16 02:03 12/10/16 05:55 Bedside Glucose 170 168 117 Prothrombin Time 14.9 H Prothrombin Time Ratio 1.2 INR International Normalized Ratio 1.16 Test 12/10/16 07:32 12/10/16 11:45 Bedside Glucose 107 177 Medications Medications Current Medications Sertraline HCl (Zoloft) 100 mg DAILY PO Last administered on 12/10/16 14:57; Admin Dose 100 MG; Start 12/07/16 at 09:00 Amlodipine Besylate (Norvasc) 5 mg BID PO Last administered on 12/10/16 10:48; Admin Dose 5 MG; Start 12/06/16 at 21:00 Losartan Potassium (Cozaar) 50 mg BID PO Last administered on 12/09/16 20:42; Admin Dose 50 MG; Start 12/06/16 at 21:00 Atorvastatin Calcium (Lipitor) 80 mg DAILY@21 PO Last administered on 12/09/16 20:41; Admin Dose 80 MG; Start 12/06/16 at 21:00 Polyethylene Glycol (Miralax) 17 gm DAILY PO Last administered on 12/09/16 08: 27; Admin Dose 17 GM; Start 12/07/16 at 09:00 Docusate Sodium (Colace) 100 mg BID PO Last administered on 12/09/16 20:41; Admin Dose 100 MG; Start 12/06/16 at 21:00 Metoprolol Tartrate (Lopressor) 100 mg BID PO Last administered on 12/10/16 09: 00; Admin Dose 100 MG; Start 12/06/16 at 21:00 Vitamin B Complex/ Vitamin C (Berocca) 1 cap BID PO Last administered on 10:37; Admin Dose 1 CAP; Start 12/06/16 at 21:00 Cholecalciferol (Vitamin D) 400 units DAILY PO Last administered on 12/10/16 10 :38; Admin Dose 400 UNITS; Start 12/07/16 at 09:00 Pantoprazole (Protonix Tab) 40 mg DAILY@06 PO Last administered on 12/10/16 06: 23; Admin Dose 40 MG; Start 12/07/16 at 06:00 Gabapentin (Neurontin) 400 mg Q8 PO Last administered on 12/10/16 13:10; Admin Dose 400 MG; Start 12/06/16 at 22:00 Hydralazine HCl (Apresoline) 50 mg TID PO Last administered on 12/10/16 13:10; Admin Dose 50 MG; Start 12/06/16 at 21:00 Methocarbamol (Robaxin) 500 mg TID PRN PO MUSCLE SPASMS Last administered on 10:36; Admin Dose 500 MG; Start 12/06/16 at 17:00 Diphenhydramine HCl (Benadryl) 25 mg Q6H PRN PO ITCHING Last administered on 10:33; Admin Dose 25 MG; Start 12/06/16 at 15:30 Miscellaneous Information 1 ea NOTE XX ; Start 12/06/16 at 16:00 Glucose (Glutose) 15 gm Q15M PRN PO DECREASED GLUCOSE; Start 12/06/16 at 16:00 Glucose (Glutose) 22.5 gm Q15M PRN PO DECREASED GLUCOSE; Start 12/06/16 at 16: 00 Dextrose (D50w Syringe) 25 ml Q15M PRN IV DECREASED GLUCOSE; Start 12/06/16 at 16:00 Dextrose (D50w Syringe) 50 ml Q15M PRN IV DECREASED GLUCOSE; Start 12/06/16 at 16:00 Glucagon (Glucagen) 1 mg Q15M PRN IM DECREASED GLUCOSE; Start 12/06/16 at 16:00 Glucose (Glutose) 15 gm Q15M PRN BUCCAL DECREASED GLUCOSE; Start 12/06/16 at 16 :00 Senna (Senokot) 1 tab HS PO Last administered on 12/09/16 20:41; Admin Dose 1 TAB; Start 12/06/16 at 21:00 Acetaminophen (Tylenol Tab) 650 mg Q4H PRN PO PAIN; Start 12/06/16 at 17:00 Magnesium Hydroxide (Milk Of Mag) 30 ml BID PRN PO CONSTIPATION; Start at 17:00 Lactulose (Enulose) 20 gm DAILY PRN PO CONSTIPATION; Start 12/06/16 at 17:00 Oxycodone HCl (Oxycontin) 10 mg Q8 PO Last administered on 12/10/16 14:57; Admin Dose 10 MG; Start 12/07/16 at 11:30 Bisacodyl (Dulcolax Supp) 10 mg DAILY [place] ; Start 12/08/16 at 09:00 Mupirocin (Bactroban) 1 applic BID TOP Last administered on 12/10/16 10:38; Admin Dose 1 APPLIC; Start 12/07/16 at 21:00; Stop 12/14/16 at 20:59 Hydromorphone HCl (Dilaudid) 0.5 mg Q4H PRN IV PAIN -02/16 Last administered on 12/10/16 11:41; Admin Dose 0.5 MG; Start 12/09/16 at 11:30 Warfarin Sodium (Coumadin) 8 mg DAILY@17 PO ; Start 12/10/16 at 17:00 TACO PERSAUD MD Dec 10, 2016 16:07
[2016-12-10] MEDS: WARFARIN 2 MG TAB PO SCH (17:23)
[2016-12-10 20:00] VITALS: BP 144/63; RESP 19
--- NOTE | 2016-12-10 20:17 | CONS ---
DATE OF ADMISSION: 12/06/2016 DATE OF CONSULTATION: 12/10/2016 REASON FOR CONSULTATION: Antibiotic management. HISTORY OF PRESENT ILLNESS: The patient is a 51-year-old female, who was admitted to [facility] and is being seen now for antibiotic management. PROBLEMS: 1. History of chronic renal disease stage IV. 2. History of CVA. 3. Adult-onset diabetes mellitus. 4. Diabetic nephropathy. 5. Coronary artery disease. 6. Dyslipidemia. 7. Hypertension. Several months ago the patient was admitted to [facility] with fever, back pain, weakness, and lower extremity numbness as well as paresthesia. She was found to have a diskitis/osteomyelitis at T7 and T8. The patient had local drainage of her abscess. She underwent surgical laminectomy due to osteomyelitis. Her course was complicated with pneumonia and she was eventually intubated. She went into acute renal failure on top of her chronic renal disease and became dialysis dependent. She was transferred to [facility] for rehab on 10/20/2016. She was then noted to have 27 paraplegia including incomplete spinal cord injury. The patient also was noted to have a DVT and was on Coumadin and also had paroxysmal atrial fibrillation controlled with medical management. She was then transferred from [facility] to [facility] acute rehab for continued care. She also has a narcotic dependency. She is depressed and has an anxiety disorder. She denies fever, chills, nausea or vomiting. PAST MEDICAL HISTORY: As outlined. PAST SURGICAL HISTORY: Includes status post PermCath placement as well as the thoracic spine laminectomy and epidural abscess drainage. There is no recent chest x-ray. Her MRSA screen is negative. White count on the 2nd was 11.1, hemoglobin and hematocrit of 8.1 and 26.8, platelet count is 359,000. BUN and creatinine is 40/3.15, alkaline phosphatase was 176. Patient is currently on no antibiotic therapy. She has numerous problems including end- stage renal disease on dialysis, hypertension, history of osteomyelitis, status post thoracic spinal laminectomy. She has completed her antibiotic course and follow up according to Dr. Seals with infectious disease. Past medical history is as outlined. FAMILY HISTORY: Noncontributory. SOCIAL HISTORY: She does not drink, smoke, or abuse drugs. ALLERGIES: NONE TO PENICILLIN, SULFA, OR FOODS. MEDICATIONS: Per chart. REVIEW OF SYSTEMS: As per HPI. PHYSICAL EXAMINATION: VITAL SIGNS: Stable. She is afebrile. SKIN: Without generalized rash. HEENT: Within normal limits. NECK: Supple. Lymph nodes nonpalpable. CHEST: Decreased breath sounds at the bases. HEART: Without murmur or gallop. ABDOMEN: Soft, nontender, without organosplenomegaly or masses. EXTREMITIES: Without cyanosis, clubbing, or edema. RECTAL/GENITAL: Deferred. NEUROLOGIC: Patient has T7 paraplegia secondary to incomplete spinal cord damage. She also has history of cognitive decline. IMPRESSION AND PLAN: The patient has been adequately treated for osteomyelitis. She has T7 paraplegia with incomplete spinal cord injury. We will continue her off antibiotic therapy for the time being. I will dictate my findings to Dr. Seals and Dr. Cole. Dictated By: Ramesh Samaniego MD JD/saul/jenelle /Document#: [id number]
[2016-12-10] MEDS: ATORVASTATIN 80 MG TAB PO SCH (20:46)
[2016-12-10] MEDS: SENNA TAB PO SCH (20:46)
[2016-12-11] VITALS (11 sets, daily range): BP systolic 120–145; BP diastolic 60–71; PULSE 67–74; RESP 18–20
[2016-12-11] MEDS: HYDROmorphONE 1 MG/ML SYG IV PRN ×4 (00:08→18:12)
[2016-12-11] MEDS: PANTOPRAZOLE (EC) 40 MG TAB PO SCH (06:13)
[2016-12-11] MEDS: GABAPENTIN 400 MG CAP PO SCH ×3 (06:13→22:11)
[2016-12-11] MEDS: oxyCODONE (CR) 10 MG TAB [oxyCONTIN] PO SCH ×3 (06:14→22:12)
[2016-12-11 07:04] LABS: BASOPHIL # 0.1 10^3/ul (0.0-0.1); BASOPHILS % 0.5 % (0.0-2.0); EOSINOPHILS # 0.9 10^3/ul (0.0-0.5); EOSINOPHILS % 8.7 % (0.0-7.0); HEMATOCRIT 25.5 % (37.0-47.0); HEMOGLOBIN 7.7 g/dl (12.0-16.0); LYMPHOCYTES # 2.3 10^3/ul (0.8-2.9); LYMPHOCYTES % 23.6 % (15.0-51.0); MEAN CORPUSCULAR HGB CONC 30.2 g/dl (32.0-37.0); MEAN CORPUSCULAR VOLUME 99.2 fl (82.0-101.0); MONOCYTE # 0.7 10^3/ul (0.3-0.9); MONOCYTES % 7.3 % (0.0-11.0); NEUTROPHIL # 5.9 10^3/ul (1.6-7.5); NEUTROPHILS % 59.4 % (39.0-77.0); PLATELET COUNT 345 10^3/UL (140-415); RED BLOOD COUNT 2.57 10^6/ul (4.20-5.40); RED CELL DISTRIBUTION WIDTH 16.6 % (11.5-14.5); WHITE BLOOD COUNT 9.9 10^3/ul (4.8-10.8)
[2016-12-11] MEDS: Insulin ASPART slide scale (Novolog) SC SCH ×4 (07:05→21:00)
[2016-12-11 07:34] LABS: MAGNESIUM 1.9 mg/dl (1.7-2.5); PHOSPHORUS 4.1 mg/dl (2.5-4.9)
[2016-12-11 07:35] LABS: INR 1.3; PROTIME 16.3 Sec (12.2-14.2); PT RATIO 1.3
[2016-12-11 07:39] LABS: ALBUMIN 2.3 g/dl (3.3-4.9); ALBUMIN/GLOBULIN RATIO 0.67; CALCIUM 8.1 mg/dl (8.4-10.2); CREATININE 2.55 mg/dl (0.44-1.00); POTASSIUM 4.7 mmol/L (3.5-5.1); TOTAL PROTEIN 5.7 g/dl (6.1-8.1)
[2016-12-11] MEDS: ALBUTEROL/IPRATROPIUM (NEB) 3 ML AMP HHN SCH ×3 (08:00→21:10)
[2016-12-11] MEDS: POLYETHYLENE GLYCOL 17 GM PACKET PO SCH (08:24)
[2016-12-11] MEDS: DOCUSATE SODIUM 100 MG CAP PO SCH ×2 (08:26→21:09)
[2016-12-11] MEDS: VITAMIN B COMPLEX/VIT C CAP PO SCH ×2 (08:26→21:09)
[2016-12-11] MEDS: SEVELAMER 800 MG TAB PO SCH ×3 (08:26→18:12)
[2016-12-11] MEDS: METOPROLOL 100 MG TAB PO SCH ×2 (08:26→21:10)
[2016-12-11] MEDS: SERTRALINE 100 MG TAB PO SCH (08:26)
[2016-12-11] MEDS: AMLODIPINE 5 MG TAB PO SCH ×2 (08:26→21:13)
[2016-12-11] MEDS: CHOLECALCIFEROL 400 UNITS TAB PO SCH (08:27)
[2016-12-11] MEDS: LOSARTAN 50 MG TAB PO SCH ×2 (08:27→21:10)
[2016-12-11] MEDS: BISACODYL 10 MG SUPP PR SCH (09:00)
[2016-12-11] MEDS: MUPIROCIN 2% 22 GM OINT TOP SCH ×2 (09:12→21:15)
[2016-12-11 10:10] LABS: IRON 27 ug/dl (35-150)
[2016-12-11 10:19] LABS: TOTAL IRON BINDING CAPACITY 130 ug/dl (241-421)
--- NOTE | 2016-12-11 11:25 | PN ---
DATE: 12/11/2016 SUBJECTIVE DATA: The patient is scheduled for hemodialysis today. No other events noted. No hemoptysis, hematemesis, hematochezia. OBJECTIVE DATA: VITAL SIGNS: Blood pressure is 144/62, respirations 19, pulse 81, temperature 99.3. HEENT: Head is normocephalic. NECK: Supple. HEART: Regular rate. LUNGS: Show diminished breath sounds at the base. ABDOMEN: Soft, nontender to palpation. No rebound or guarding. EXTREMITIES: Negative for clubbing, cyanosis. No edema. DERMATOLOGIC: Clean. No rashes. MUSCULOSKELETAL: No joint effusion. NEUROLOGIC: No change in exam. MEDICATIONS: Reviewed. LABORATORY AND DIAGNOSTIC DATA: Shows an INR of 1.30. Sodium 140, potassium 4.7, BUN 35, creatinine 2.55. White count 9.9, hemoglobin 10.7, crit is 25.5, platelet count is 345. ASSESSMENT AND PLAN: 1. End-stage renal disease. The patient on dialysis Wednesday, Wednesday, Wednesday. Plan for dialysis today. 2. Anemia. Hemoglobin levels are low, but stable. We will check an iron panel. Continue Epogen following dialysis. 3. Mineral bone disorder. Monitor calcium and phosphorus levels. 4. Hypertension. Continue current blood pressure regimen. 5. History of osteomyelitis, status post laminectomy. The patient is status post antibiotic course. Appreciate infectious disease evaluation. 6. Mild leukocytosis resolved. 7. C7 paraplegia. Continue physical therapy, occupational therapy. 8. History of deep venous thrombosis. Continue Coumadin. INR is approaching goal. 9. Paroxysmal atrial fibrillation, currently in sinus rhythm. Continue Coumadin. Follow up with Cardiology. 10. Diabetes. Continue Accu-Cheks and insulin sliding scale. 11. Anxiety/depression. Continue medical management. 12. History of chronic obstructive pulmonary disease. 13. Encephalopathy, improved. 14. History of cerebrovascular accident. Dictated By: Buck Seals DO /saul/josee /Document#: [id number]
[2016-12-11 12:19] LABS: ADD UMIC YES; UR ASCORBIC ACID NEGATIVE (NEGATIVE); UR BACTERIA MODERATE /HPF (NONE SEEN); UR BILIRUBIN (Dip) NEGATIVE (NEGATIVE); UR BLOOD (Dip) NEGATIVE (NEGATIVE); UR CLARITY CLOUDY (CLEAR); UR COLOR AMBER (YELLOW); UR GLUCOSE (Dip) 1+ mg/dL (NEGATIVE); UR KETONES (Dip) NEGATIVE (NEGATIVE); UR LEUKOCYTE ESTERASE (Dip) 3+ Leu/ul (NEGATIVE); UR NITRITE (Dip) NEGATIVE (NEGATIVE); UR RBC 13 /HPF (0-5); UR SPECIFIC GRAVITY (Dip) 1.013 (1.003-1.030); UR SQUAMOUS EPITHELIAL CELL FEW /HPF (FEW); UR TOTAL PROTEIN (Dip) 3+ mg/dl (NEGATIVE); UR UROBILINOGEN (Dip) NEGATIVE (NEGATIVE); UR WBC CLUMPS MANY /HPF (NONE SEEN)
--- NOTE | 2016-12-11 12:31 | CONS ---
Date/Time of Note Date/Time of Note DATE: 12/11/16 TIME: 12:30 Consult Date/Type/Reason Admit Date/Time Dec 06, 2016 at 10:56 Type of Consultation: ID Subjective Patient still with pain however that is improving Objective Lungs clear abdomen soft Maximum assist transfer Vital Signs Date Time Temp Pulse Resp B/P Pulse Ox O2 Delivery O2 Flow Rate FiO2 12/11/16 08:41 Nasal Cannula 2.0 12/11/16 07:30 98.3 70 20 143/69 96 12/10/16 19:30 21 Intake and Output 12/10/16 12/10/16 12/11/16 15:00 23:00 07:00 Intake Total 600 ml 1100 ml 650 ml Balance 600 ml 1100 ml 650 ml Results/Medications Result Diagram: 12/11/16 0643 12/11/16 0643 Results 24 hrs Laboratory Tests Test 12/10/16 17:20 12/10/16 20:29 12/11/16 02:27 12/11/16 06:14 Bedside Glucose 128 162 112 Phosphorus Level 4.1 Magnesium Level 1.9 Test 12/11/16 06:41 12/11/16 06:43 12/11/16 07:50 12/11/16 11:55 Prothrombin Time 16.3 H Prothrombin Time Ratio 1.3 INR International Normalized Ratio 1.30 White Blood Count 9.9 Red Blood Count 2.57 L Hemoglobin 7.7 L Hematocrit 25.5 L Mean Corpuscular Volume 99.2 Mean Corpuscular Hemoglobin 30.0 Mean Corpuscular Hemoglobin Concent 30.2 L Red Cell Distribution Width 16.6 H Platelet Count 345 Mean Platelet Volume 8.0 Neutrophils % 59.4 Lymphocytes % 23.6 Monocytes % 7.3 Eosinophils % 8.7 H Basophils % 0.5 Nucleated Red Blood Cells % 0.0 Neutrophils # 5.9 Lymphocytes # 2.3 Monocytes # 0.7 Eosinophils # 0.9 H Basophils # 0.1 Nucleated Red Blood Cells # 0.0 Sodium Level 140 Potassium Level 4.7 Chloride Level 100 Carbon Dioxide Level 29 Anion Gap 16 Blood Urea Nitrogen 35 H Creatinine 2.55 H Glucose Level 77 Calcium Level 8.1 L Iron Level 27 L Total Iron Binding Capacity 130 L Percent Iron Saturation 21 L Ferritin 1210.0 H Total Bilirubin 0.0 L Direct Bilirubin 0.00 Indirect Bilirubin 0.0 Aspartate Amino Transf (AST/SGOT) 18 Alanine Aminotransferase (ALT/SGPT) 23 Alkaline Phosphatase 163 H Total Protein 5.7 L Albumin 2.3 L Globulin 3.40 H Albumin/Globulin Ratio 0.67 Bedside Glucose 92 Urine Color TAMELA Urine Clarity CLOUDY A Urine pH 7.0 Urine Specific [place] 1.013 Urine Ketones NEGATIVE Urine Nitrite NEGATIVE Urine Bilirubin NEGATIVE Urine Urobilinogen NEGATIVE Urine Leukocyte Esterase 3+ H Urine Microscopic RBC 13 H Urine Microscopic WBC > 182 H Urine Squamous Epithelial Cells FEW Urine Bacteria MODERATE Urine Hemoglobin NEGATIVE Urine Glucose 1+ H Urine Total Protein 3+ H Test 12/11/16 12:01 Bedside Glucose 96 Medications Current Medications Sertraline HCl (Zoloft) 100 mg DAILY PO Last administered on 12/11/16 08:26; Admin Dose 100 MG; Start 12/07/16 at 09:00 Amlodipine Besylate (Norvasc) 5 mg BID PO Last administered on 12/11/16 08:26; Admin Dose 5 MG; Start 12/06/16 at 21:00 Losartan Potassium (Cozaar) 50 mg BID PO Last administered on 12/11/16 08:27; Admin Dose 50 MG; Start 12/06/16 at 21:00 Atorvastatin Calcium (Lipitor) 80 mg DAILY@21 PO Last administered on 12/10/16 20:46; Admin Dose 80 MG; Start 12/06/16 at 21:00 Polyethylene Glycol (Miralax) 17 gm DAILY PO Last administered on 12/11/16 08: 24; Admin Dose 17 GM; Start 12/07/16 at 09:00 Docusate Sodium (Colace) 100 mg BID PO Last administered on 12/11/16 08:26; Admin Dose 100 MG; Start 12/06/16 at 21:00 Metoprolol Tartrate (Lopressor) 100 mg BID PO Last administered on 12/11/16 08: 26; Admin Dose 100 MG; Start 12/06/16 at 21:00 Vitamin B Complex/ Vitamin C (Berocca) 1 cap BID PO Last administered on 08:26; Admin Dose 1 CAP; Start 12/06/16 at 21:00 Cholecalciferol (Vitamin D) 400 units DAILY PO Last administered on 12/11/16 08 :27; Admin Dose 400 UNITS; Start 12/07/16 at 09:00 Pantoprazole (Protonix Tab) 40 mg DAILY@06 PO Last administered on 12/11/16 06: 13; Admin Dose 40 MG; Start 12/07/16 at 06:00 Gabapentin (Neurontin) 400 mg Q8 PO Last administered on 12/11/16 06:13; Admin Dose 400 MG; Start 12/06/16 at 22:00 Hydralazine HCl (Apresoline) 50 mg TID PO Last administered on 12/11/16 08:26; Admin Dose 50 MG; Start 12/06/16 at 21:00 Methocarbamol (Robaxin) 500 mg TID PRN PO MUSCLE SPASMS Last administered on 10:36; Admin Dose 500 MG; Start 12/06/16 at 17:00 Diphenhydramine HCl (Benadryl) 25 mg Q6H PRN PO ITCHING Last administered on 10:33; Admin Dose 25 MG; Start 12/06/16 at 15:30 Miscellaneous Information 1 ea NOTE XX ; Start 12/06/16 at 16:00 Glucose (Glutose) 15 gm Q15M PRN PO DECREASED GLUCOSE; Start 12/06/16 at 16:00 Glucose (Glutose) 22.5 gm Q15M PRN PO DECREASED GLUCOSE; Start 12/06/16 at 16: 00 Dextrose (D50w Syringe) 25 ml Q15M PRN IV DECREASED GLUCOSE; Start 12/06/16 at 16:00 Dextrose (D50w Syringe) 50 ml Q15M PRN IV DECREASED GLUCOSE; Start 12/06/16 at 16:00 Glucagon (Glucagen) 1 mg Q15M PRN IM DECREASED GLUCOSE; Start 12/06/16 at 16:00 Glucose (Glutose) 15 gm Q15M PRN BUCCAL DECREASED GLUCOSE; Start 12/06/16 at 16 :00 Senna (Senokot) 1 tab HS PO Last administered on 12/10/16 20:46; Admin Dose 1 TAB; Start 12/06/16 at 21:00 Acetaminophen (Tylenol Tab) 650 mg Q4H PRN PO PAIN; Start 12/06/16 at 17:00 Magnesium Hydroxide (Milk Of Mag) 30 ml BID PRN PO CONSTIPATION; Start at 17:00 Lactulose (Enulose) 20 gm DAILY PRN PO CONSTIPATION; Start 12/06/16 at 17:00 Oxycodone HCl (Oxycontin) 10 mg Q8 PO Last administered on 12/11/16 06:14; Admin Dose 10 MG; Start 12/07/16 at 11:30 Bisacodyl (Dulcolax Supp) 10 mg DAILY [place] ; Start 12/08/16 at 09:00 Mupirocin (Bactroban) 1 applic BID TOP Last administered on 12/11/16 09:12; Admin Dose 1 APPLIC; Start 12/07/16 at 21:00; Stop 12/14/16 at 20:59 Hydromorphone HCl (Dilaudid) 0.5 mg Q4H PRN IV PAIN Last administered on 12/11/16 11:43; Admin Dose 0.5 MG; Start 12/09/16 at 11:30 Warfarin Sodium (Coumadin) 8 mg DAILY@17 PO Last administered on 12/10/16 17:23 ; Admin Dose 8 MG; Start 12/10/16 at 17:00 Assessment/Plan Additional Assessment/Plan Rehabilitation-T7 incomplete paraplegia due to epidural abscess/osteomyelitis- status post Thoracic laminectomy drainage of abscess Continue interdisciplinary treatment plan ID-appreciate ID follow-up Pulmonary -post operative respiratory failure requiring intubation, with eventual extubation, currently stable Toxic metabolic encephalopathy-continue treatment plan Diabetes Mellitus type 2 ESRD on HD Afib Coronary Artery Disease history of DVT Hypertension Hypercholesterolemia COPD history of CVA anxiety depression ALINE CORREIA MD Dec 11, 2016 12:31
--- NOTE | 2016-12-11 15:42 | PN ---
Date/Time of Note Date/Time of Note DATE: 12/11/16 TIME: 15:39 Assessment/Plan VTE Prophylaxis VTE Prophylaxis Intervention: other Lines/Catheters IV [facility]ter Type (from [facility]): nelly cath Urinary Cath still in place: No Assessment/Plan Chief Complaint/Hosp Course 1. History of P-atrial fibrillation. Currently in NSR 2. History of CVA 3. Hypertension. 4. Renal failure, on dialysis. 5. History of dyslipidemia. 6. History of multiple infections. 7. Discitis. 8. Severe anemia. 9. History of deep vein thrombosis. 10. hyper K: to be corrected by HD. Adjust coumadin to goal INR 2-3 ECHO shows normal EF AND LA size. cont betablocker. HD as per renal will check daily PT/INR and adjust coumadin dosing. Cont PT THANK YOU Problems: Subjective 24 Hr Interval Summary Free Text/Dictation d/w staff pt with c/o abdominal pain no chest pain or pressure. no palpitations or bleeding she has fatigue she c/o left lower abdominal pain but is able to eat with no N/V no bleeding. OBJECTIVE: General: no acute distress. Obese female. HEENT: NC/AT. pupils are equal. round. NECK: NO JVD. no stridor. CV: RRR. systolic murmur; no gallop or rubs. chest: s/p R HD access in place. PULM: no wheezing or rhonchi. GI: SOFT, NT, ND, no rebound or guarding. Obese Extremity: + B/L LE edema. no clubbing. neuro: awake and alert,. Psych: calm and pleasant rectal: deferred ECG 12/08/16: NSR. echo 12/08/16 reviewed: 1. Normal left ventricular systolic function. Normal left ventricular cavity size. Mild concentric left ventricular hypertrophy. Ejection fraction is visually estimated at 55 %. Abnormal Diastolic Function. 2. The left atrium is normal in size. 3. Mitral valve leaflets appear mildly thickened. Mild mitral annular calcification. Trace mitral regurgitation. 4. Normal appearance of the aortic valve. No significant aortic stenosis or insufficiency. 5. Normal appearance of the tricuspid valve. Estimated peak PA systolic pressure 42 mmHg. There is mild tricuspid regurgitation. 6. Normal size and normal respiratory collapse consistent with normal right atrial pressure. Exam/Review of Systems Vital Signs Vitals Vital Signs Date Time Temp Pulse Resp B/P Pulse Ox O2 Delivery O2 Flow Rate FiO2 12/11/16 14:00 98.7 72 20 128/69 95 12/11/16 08:41 Nasal Cannula 2.0 12/10/16 19:30 21 Intake and Output 12/10/16 12/10/16 12/11/16 15:00 23:00 07:00 Intake Total 600 ml 1100 ml 650 ml Balance 600 ml 1100 ml 650 ml Results Result Diagram: 12/11/16 0643 12/11/16 0643 Results 24 hrs Laboratory Tests Test 12/10/16 17:20 12/10/16 20:29 12/11/16 02:27 12/11/16 06:14 Bedside Glucose 128 162 112 Phosphorus Level 4.1 Magnesium Level 1.9 Test 12/11/16 06:41 12/11/16 06:43 12/11/16 07:50 12/11/16 11:55 Prothrombin Time 16.3 H Prothrombin Time Ratio 1.3 INR International Normalized Ratio 1.30 White Blood Count 9.9 Red Blood Count 2.57 L Hemoglobin 7.7 L Hematocrit 25.5 L Mean Corpuscular Volume 99.2 Mean Corpuscular Hemoglobin 30.0 Mean Corpuscular Hemoglobin Concent 30.2 L Red Cell Distribution Width 16.6 H Platelet Count 345 Mean Platelet Volume 8.0 Neutrophils % 59.4 Lymphocytes % 23.6 Monocytes % 7.3 Eosinophils % 8.7 H Basophils % 0.5 Nucleated Red Blood Cells % 0.0 Neutrophils # 5.9 Lymphocytes # 2.3 Monocytes # 0.7 Eosinophils # 0.9 H Basophils # 0.1 Nucleated Red Blood Cells # 0.0 Sodium Level 140 Potassium Level 4.7 Chloride Level 100 Carbon Dioxide Level 29 Anion Gap 16 Blood Urea Nitrogen 35 H Creatinine 2.55 H Glucose Level 77 Calcium Level 8.1 L Iron Level 27 L Total Iron Binding Capacity 130 L Percent Iron Saturation 21 L Ferritin 1210.0 H Total Bilirubin 0.0 L Direct Bilirubin 0.00 Indirect Bilirubin 0.0 Aspartate Amino Transf (AST/SGOT) 18 Alanine Aminotransferase (ALT/SGPT) 23 Alkaline Phosphatase 163 H Total Protein 5.7 L Albumin 2.3 L Globulin 3.40 H Albumin/Globulin Ratio 0.67 Bedside Glucose 92 Urine Color TAMELA Urine Clarity CLOUDY A Urine pH 7.0 Urine Specific [place] 1.013 Urine Ketones NEGATIVE Urine Nitrite NEGATIVE Urine Bilirubin NEGATIVE Urine Urobilinogen NEGATIVE Urine Leukocyte Esterase 3+ H Urine Microscopic RBC 13 H Urine Microscopic WBC > 182 H Urine Squamous Epithelial Cells FEW Urine Bacteria MODERATE Urine Hemoglobin NEGATIVE Urine Glucose 1+ H Urine Total Protein 3+ H Test 12/11/16 12:00 12/11/16 12:01 Hepatitis A Antibody Total POSITIVE H Hepatitis B Surface Antigen NEGATIVE Hepatitis B Surface Antibody POSITIVE H Hepatitis C Antibody NEGATIVE Bedside Glucose 96 Medications Medications Current Medications Sertraline HCl (Zoloft) 100 mg DAILY PO Last administered on 12/11/16 08:26; Admin Dose 100 MG; Start 12/07/16 at 09:00 Amlodipine Besylate (Norvasc) 5 mg BID PO Last administered on 12/11/16 08:26; Admin Dose 5 MG; Start 12/06/16 at 21:00 Losartan Potassium (Cozaar) 50 mg BID PO Last administered on 12/11/16 08:27; Admin Dose 50 MG; Start 12/06/16 at 21:00 Atorvastatin Calcium (Lipitor) 80 mg DAILY@21 PO Last administered on 12/10/16 20:46; Admin Dose 80 MG; Start 12/06/16 at 21:00 Polyethylene Glycol (Miralax) 17 gm DAILY PO Last administered on 12/11/16 08: 24; Admin Dose 17 GM; Start 12/07/16 at 09:00 Docusate Sodium (Colace) 100 mg BID PO Last administered on 12/11/16 08:26; Admin Dose 100 MG; Start 12/06/16 at 21:00 Metoprolol Tartrate (Lopressor) 100 mg BID PO Last administered on 12/11/16 08: 26; Admin Dose 100 MG; Start 12/06/16 at 21:00 Vitamin B Complex/ Vitamin C (Berocca) 1 cap BID PO Last administered on 08:26; Admin Dose 1 CAP; Start 12/06/16 at 21:00 Cholecalciferol (Vitamin D) 400 units DAILY PO Last administered on 12/11/16 08 :27; Admin Dose 400 UNITS; Start 12/07/16 at 09:00 Pantoprazole (Protonix Tab) 40 mg DAILY@06 PO Last administered on 12/11/16 06: 13; Admin Dose 40 MG; Start 12/07/16 at 06:00 Gabapentin (Neurontin) 400 mg Q8 PO Last administered on 12/11/16 13:54; Admin Dose 400 MG; Start 12/06/16 at 22:00 Hydralazine HCl (Apresoline) 50 mg TID PO Last administered on 12/11/16 08:26; Admin Dose 50 MG; Start 12/06/16 at 21:00 Methocarbamol (Robaxin) 500 mg TID PRN PO MUSCLE SPASMS Last administered on 10:36; Admin Dose 500 MG; Start 12/06/16 at 17:00 Diphenhydramine HCl (Benadryl) 25 mg Q6H PRN PO ITCHING Last administered on 10:33; Admin Dose 25 MG; Start 12/06/16 at 15:30 Miscellaneous Information 1 ea NOTE XX ; Start 12/06/16 at 16:00 Glucose (Glutose) 15 gm Q15M PRN PO DECREASED GLUCOSE; Start 12/06/16 at 16:00 Glucose (Glutose) 22.5 gm Q15M PRN PO DECREASED GLUCOSE; Start 12/06/16 at 16: 00 Dextrose (D50w Syringe) 25 ml Q15M PRN IV DECREASED GLUCOSE; Start 12/06/16 at 16:00 Dextrose (D50w Syringe) 50 ml Q15M PRN IV DECREASED GLUCOSE; Start 12/06/16 at 16:00 Glucagon (Glucagen) 1 mg Q15M PRN IM DECREASED GLUCOSE; Start 12/06/16 at 16:00 Glucose (Glutose) 15 gm Q15M PRN BUCCAL DECREASED GLUCOSE; Start 12/06/16 at 16 :00 Senna (Senokot) 1 tab HS PO Last administered on 12/10/16 20:46; Admin Dose 1 TAB; Start 12/06/16 at 21:00 Acetaminophen (Tylenol Tab) 650 mg Q4H PRN PO PAIN; Start 12/06/16 at 17:00 Magnesium Hydroxide (Milk Of Mag) 30 ml BID PRN PO CONSTIPATION; Start at 17:00 Lactulose (Enulose) 20 gm DAILY PRN PO CONSTIPATION; Start 12/06/16 at 17:00 Oxycodone HCl (Oxycontin) 10 mg Q8 PO Last administered on 12/11/16 13:54; Admin Dose 10 MG; Start 12/07/16 at 11:30 Bisacodyl (Dulcolax Supp) 10 mg DAILY [place] ; Start 12/08/16 at 09:00 Mupirocin (Bactroban) 1 applic BID TOP Last administered on 12/11/16 09:12; Admin Dose 1 APPLIC; Start 12/07/16 at 21:00; Stop 12/14/16 at 20:59 Hydromorphone HCl (Dilaudid) 0.5 mg Q4H PRN IV PAIN Last administered on 12/11/16 11:43; Admin Dose 0.5 MG; Start 12/09/16 at 11:30 Warfarin Sodium 8 mg 8 mg DAILY@17 PO Last administered on 12/10/16 17:23; Admin Dose 8 MG; Start 12/10/16 at 17:00 Ferric Sodium Gluconate Complex/ Sodium Chloride (Ferrlecit/NS) 110 ml @ 110 mls/hr Q24H IVPB ; Start 12/11/16 at 21:00; Stop 12/15/16 at 21:59 TAMERA BAILEY MD Dec 11, 2016 15:42
[2016-12-11] MEDS: WARFARIN 2 MG TAB PO SCH (18:12)
[2016-12-11] MEDS: EPOETIN 4000 UNITS/1 ML INJ (ESRD) SC SCH (18:12)
[2016-12-11] MEDS: ATORVASTATIN 80 MG TAB PO SCH (21:09)
[2016-12-11] MEDS: SENNA TAB PO SCH (21:09)
[2016-12-11] MEDS: SOD FERRIC GLUC COMPLX 125 MG in SOD CHLORIDE 0.9% 100 ML IVPB SCH (21:11)
[2016-12-12 02:00] VITALS: BP 135/65; RESP 18
[2016-12-12] MEDS: oxyCODONE (CR) 10 MG TAB [oxyCONTIN] PO SCH ×3 (06:46→22:01)
[2016-12-12] MEDS: GABAPENTIN 400 MG CAP PO SCH ×3 (06:46→22:01)
[2016-12-12] MEDS: PANTOPRAZOLE (EC) 40 MG TAB PO SCH (06:47)
[2016-12-12] MEDS: Insulin ASPART slide scale (Novolog) SC SCH ×4 (07:05→20:23)
[2016-12-12 07:21] LABS: BASOPHIL # 0.1 10^3/ul (0.0-0.1); BASOPHILS % 0.5 % (0.0-2.0); EOSINOPHILS # 0.9 10^3/ul (0.0-0.5); EOSINOPHILS % 8.1 % (0.0-7.0); HEMATOCRIT 27.2 % (37.0-47.0); LYMPHOCYTES # 2.5 10^3/ul (0.8-2.9); LYMPHOCYTES % 21.3 % (15.0-51.0); MEAN CORPUSCULAR HEMOGLOBIN 29.1 pg (29.0-33.0); MEAN CORPUSCULAR HGB CONC 29.4 g/dl (32.0-37.0); MEAN CORPUSCULAR VOLUME 98.9 fl (82.0-101.0); MEAN PLATELET VOLUME 8.4 fl (7.4-10.4); MONOCYTE # 0.8 10^3/ul (0.3-0.9); MONOCYTES % 6.8 % (0.0-11.0); NEUTROPHIL # 7.3 10^3/ul (1.6-7.5); NEUTROPHILS % 62.9 % (39.0-77.0); PLATELET COUNT 357 10^3/UL (140-415); RED BLOOD COUNT 2.75 10^6/ul (4.20-5.40); RED CELL DISTRIBUTION WIDTH 16.3 % (11.5-14.5); WHITE BLOOD COUNT 11.5 10^3/ul (4.8-10.8)
[2016-12-12] MEDS: CHOLECALCIFEROL 400 UNITS TAB PO SCH (08:18)
[2016-12-12] MEDS: AMLODIPINE 5 MG TAB PO SCH ×2 (08:22→20:16)
[2016-12-12] MEDS: VITAMIN B COMPLEX/VIT C CAP PO SCH ×2 (08:22→20:15)
[2016-12-12] MEDS: SEVELAMER 800 MG TAB PO SCH ×3 (08:22→18:17)
[2016-12-12] MEDS: DOCUSATE SODIUM 100 MG CAP PO SCH ×2 (08:22→20:15)
[2016-12-12] MEDS: SERTRALINE 100 MG TAB PO SCH (08:23)
[2016-12-12] MEDS: METOPROLOL 100 MG TAB PO SCH ×2 (08:23→20:15)
[2016-12-12] MEDS: LOSARTAN 50 MG TAB PO SCH ×2 (08:23→20:16)
[2016-12-12] MEDS: POLYETHYLENE GLYCOL 17 GM PACKET PO SCH (08:23)
[2016-12-12] MEDS: HYDROmorphONE 1 MG/ML SYG IV PRN ×3 (08:24→20:09)
[2016-12-12] MEDS: BISACODYL 10 MG SUPP PR SCH (08:31)
[2016-12-12] MEDS: MUPIROCIN 2% 22 GM OINT TOP SCH ×2 (08:31→20:23)
[2016-12-12] MEDS: ALBUTEROL/IPRATROPIUM (NEB) 3 ML AMP HHN SCH ×3 (08:37→20:47)
--- NOTE | 2016-12-12 10:37 | PN ---
Date/Time of Note Date/Time of Note DATE: 12/12/16 TIME: 10:27 Assessment/Plan VTE Prophylaxis VTE Prophylaxis Intervention: other (coumadin) Lines/Catheters IV Catheter Type (from Nrsg): enlly cath Urinary Cath still in place: No Assessment/Plan Assessment/Plan 1. T7 incomplete paraplegia due to epidural abscess/osteomyelitis, status post thoracic laminectomy and drainage of abscess, with impaired mobility and ADLs and chronic pain syndrome. Continue PT/OT. Medical management per spine surgeon and infectious disease, has completed antibiotics. Continue pain regimen. 2. Status post respiratory failure. Pulmonary status stable at this time, monitor. 3. Toxic metabolic encephalopathy. Continue ST. Moderate impairments with short term memory, memory strategies provided. 4. Diabetes Mellitus type 2. Blood sugars controlled. Continue medical management per internal medicine. 5. ESRD on hemodialysis per nephrology. 6. PAfib. Continue medical management per cardiology. 7. Coronary Artery Disease. Continue medical management. 8. History of DVT. On coumadin, dosed per cardiology and internal medicine. 9. Hypertension. Continue medical management per internal medicine. 10. Hypercholesterolemia. Continue statin. 11. COPD. Stable. Continue breathing treatments. 12. Possible UTI. Follow up urine culture results. Internal medicine managing. 13. History of CVA. Continue secondary stroke prevention. 14. Anxiety/depression. Monitor mood. Continue medical management. 15. Anemia. Continue to monitor hemoglobin/hematocrit, internal medicine managing. Subjective 24 Hr Interval Summary Free Text/Dictation Rehab progress note Subjective/History: Reports dysuria. Nursing checked PVR this morning 55ml. No fevers or chills. ROS: Denies vomiting, no constipation, no shortness of breath, no chest pain, no headache or dizziness. Exam/Review of Systems Vital Signs Vitals Vital Signs Date Time Temp Pulse Resp B/P Pulse Ox O2 Delivery O2 Flow Rate FiO2 12/12/16 08:38 71 20 96 Nasal Cannula 2.0 12/12/16 02:00 98.2 135/65 12/11/16 21:13 21 Intake and Output 12/11/16 12/11/16 12/12/16 15:00 23:00 07:00 Intake Total 1290 ml Output Total 150 ml 2500 ml Balance -150 ml -1210 ml Exam General: Awake, alert, no acute distress, obese CV: Regular rate, S1S2 Lungs: Respirations are nonlabored, no wheezing or crackles Abdomen soft, no rebound or guarding Extremities without cyanosis, no distal edema Neuro: No focal changes. Follows simple commands. Results Result Diagram: 12/12/16 0629 12/11/16 0643 Results 24 hrs Laboratory Tests Test 12/11/16 11:55 12/11/16 12:00 12/11/16 12:01 12/11/16 18:08 Urine Color TAMELA Urine Clarity CLOUDY A Urine pH 7.0 Urine Specific [place] 1.013 Urine Ketones NEGATIVE Urine Nitrite NEGATIVE Urine Bilirubin NEGATIVE Urine Urobilinogen NEGATIVE Urine Leukocyte Esterase 3+ H Urine Microscopic RBC 13 H Urine Microscopic WBC > 182 H Urine Squamous Epithelial Cells FEW Urine Bacteria MODERATE Urine Hemoglobin NEGATIVE Urine Glucose 1+ H Urine Total Protein 3+ H Hepatitis A Antibody Total POSITIVE H Hepatitis B Surface Antigen NEGATIVE Hepatitis B Surface Antibody POSITIVE H Hepatitis C Antibody NEGATIVE Bedside Glucose 96 148 Test 12/11/16 21:08 12/12/16 06:29 12/12/16 07:52 Bedside Glucose 148 89 White Blood Count 11.5 H Red Blood Count 2.75 L Hemoglobin 8.0 L Hematocrit 27.2 L Mean Corpuscular Volume 98.9 Mean Corpuscular Hemoglobin 29.1 Mean Corpuscular Hemoglobin Concent 29.4 L Red Cell Distribution Width 16.3 H Platelet Count 357 Mean Platelet Volume 8.4 Neutrophils % 62.9 Lymphocytes % 21.3 Monocytes % 6.8 Eosinophils % 8.1 H Basophils % 0.5 Nucleated Red Blood Cells % 0.0 Neutrophils # 7.3 Lymphocytes # 2.5 Monocytes # 0.8 Eosinophils # 0.9 H Basophils # 0.1 Nucleated Red Blood Cells # 0.0 Medications Medications Current Medications Sertraline HCl (Zoloft) 100 mg DAILY PO Last administered on 12/12/16 08:23; Admin Dose 100 MG; Start 12/07/16 at 09:00 Amlodipine Besylate (Norvasc) 5 mg BID PO Last administered on 12/12/16 08:22; Admin Dose 5 MG; Start 12/06/16 at 21:00 Losartan Potassium (Cozaar) 50 mg BID PO Last administered on 12/12/16 08:23; Admin Dose 50 MG; Start 12/06/16 at 21:00 Atorvastatin Calcium (Lipitor) 80 mg DAILY@21 PO Last administered on 12/11/16 21:09; Admin Dose 80 MG; Start 12/06/16 at 21:00 Polyethylene Glycol (Miralax) 17 gm DAILY PO Last administered on 12/12/16 08: 23; Admin Dose 17 GM; Start 12/07/16 at 09:00 Docusate Sodium (Colace) 100 mg BID PO Last administered on 12/12/16 08:22; Admin Dose 100 MG; Start 12/06/16 at 21:00 Metoprolol Tartrate (Lopressor) 100 mg BID PO Last administered on 12/12/16 08: 23; Admin Dose 100 MG; Start 12/06/16 at 21:00 Vitamin B Complex/ Vitamin C (Berocca) 1 cap BID PO Last administered on 08:22; Admin Dose 1 CAP; Start 12/06/16 at 21:00 Cholecalciferol (Vitamin D) 400 units DAILY PO Last administered on 12/12/16 08 :18; Admin Dose 400 UNITS; Start 12/07/16 at 09:00 Pantoprazole (Protonix Tab) 40 mg DAILY@06 PO Last administered on 12/12/16 06: 47; Admin Dose 40 MG; Start 12/07/16 at 06:00 Gabapentin (Neurontin) 400 mg Q8 PO Last administered on 12/12/16 06:46; Admin Dose 400 MG; Start 12/06/16 at 22:00 Hydralazine HCl (Apresoline) 50 mg TID PO Last administered on 12/12/16 08:22; Admin Dose 50 MG; Start 12/06/16 at 21:00 Methocarbamol (Robaxin) 500 mg TID PRN PO MUSCLE SPASMS Last administered on 10:36; Admin Dose 500 MG; Start 12/06/16 at 17:00 Diphenhydramine HCl (Benadryl) 25 mg Q6H PRN PO ITCHING Last administered on 10:33; Admin Dose 25 MG; Start 12/06/16 at 15:30 Miscellaneous Information 1 ea NOTE XX ; Start 12/06/16 at 16:00 Glucose (Glutose) 15 gm Q15M PRN PO DECREASED GLUCOSE; Start 12/06/16 at 16:00 Glucose (Glutose) 22.5 gm Q15M PRN PO DECREASED GLUCOSE; Start 12/06/16 at 16: 00 Dextrose (D50w Syringe) 25 ml Q15M PRN IV DECREASED GLUCOSE; Start 12/06/16 at 16:00 Dextrose (D50w Syringe) 50 ml Q15M PRN IV DECREASED GLUCOSE; Start 12/06/16 at 16:00 Glucagon (Glucagen) 1 mg Q15M PRN IM DECREASED GLUCOSE; Start 12/06/16 at 16:00 Glucose (Glutose) 15 gm Q15M PRN BUCCAL DECREASED GLUCOSE; Start 12/06/16 at 16 :00 Senna (Senokot) 1 tab HS PO Last administered on 12/11/16 21:09; Admin Dose 1 TAB; Start 12/06/16 at 21:00 Acetaminophen (Tylenol Tab) 650 mg Q4H PRN PO PAIN; Start 12/06/16 at 17:00 Magnesium Hydroxide (Milk Of Mag) 30 ml BID PRN PO CONSTIPATION; Start at 17:00 Lactulose (Enulose) 20 gm DAILY PRN PO CONSTIPATION; Start 12/06/16 at 17:00 Oxycodone HCl (Oxycontin) 10 mg Q8 PO Last administered on 12/12/16 06:46; Admin Dose 10 MG; Start 12/07/16 at 11:30 Bisacodyl (Dulcolax Supp) 10 mg DAILY [place] ; Start 12/08/16 at 09:00 Mupirocin (Bactroban) 1 applic BID TOP Last administered on 12/12/16 08:31; Admin Dose 1 APPLIC; Start 12/07/16 at 21:00; Stop 12/14/16 at 20:59 Hydromorphone HCl (Dilaudid) 0.5 mg Q4H PRN IV PAIN Last administered on 12/12/16 08:24; Admin Dose 0.5 MG; Start 12/09/16 at 11:30 Warfarin Sodium 8 mg 8 mg DAILY@17 PO Last administered on 12/11/16 18:12; Admin Dose 8 MG; Start 12/10/16 at 17:00 Ferric Sodium Gluconate Complex/ Sodium Chloride (Ferrlecit/NS) 110 ml @ 110 mls/hr Q24H IVPB Last administered on 12/11/16 21:11; Admin Dose 110 MLS/HR; Start 12/11/16 at 21:00; Stop 12/15/16 at 21:59 FLASH GRACE Dec 12, 2016 10:37
--- NOTE | 2016-12-12 13:47 | CONS ---
Date/Time of Note Date/Time of Note DATE: 12/12/16 TIME: 13:46 Assessment/Plan Assessment/Plan Chief Complaint/Hosp Course 1. End-stage renal disease. The patient on dialysis Wednesday, Wednesday, Wednesday. Plan for dialysis today. 2. Anemia. Hemoglobin levels are low, but stable. We will check an iron panel. Continue Epogen following dialysis. 3. Mineral bone disorder. Monitor calcium and phosphorus levels. 4. Hypertension. Continue current blood pressure regimen. 5. History of osteomyelitis, status post laminectomy. The patient is status post antibiotic course. Appreciate infectious disease evaluation. 6. Mild leukocytosis - start po abx for uti 7. C7 paraplegia. Continue physical therapy, occupational therapy. 8. History of deep venous thrombosis. Continue Coumadin. INR is approaching goal. 9. Paroxysmal atrial fibrillation, currently in sinus rhythm. Continue Coumadin. Follow up with Cardiology. 10. Diabetes. Continue Accu-Cheks and insulin sliding scale. 11. Anxiety/depression. Continue medical management. 12. History of chronic obstructive pulmonary disease. 13. Encephalopathy, improved. 14. History of cerebrovascular accident. Problems: Consultation Date/Type/Reason Admit Date/Time Dec 06, 2016 at 10:56 Initial Consult Date 12/10/16 Type of Consultation: nephrology 24 HR Interval Summary Free Text/Dictation pt. seen and examined c/o dysuria, ua noted c/o bladder pain. no diarrhea Exam/Review of Systems Vital Signs Vitals Vital Signs Date Time Temp Pulse Resp B/P Pulse Ox O2 Delivery O2 Flow Rate FiO2 12/12/16 08:38 71 20 96 Nasal Cannula 2.0 12/12/16 02:00 98.2 135/65 12/11/16 21:13 21 Intake and Output 12/11/16 12/11/16 12/12/16 15:00 23:00 07:00 Intake Total 1290 ml Output Total 150 ml 2500 ml Balance -150 ml -1210 ml Exam Constitutional: alert Psych: nl mood/affect, no complaints Head: atraumatic, normocephalic Eyes: EOMI, PERRL, nl conjunctiva, nl lids, nl sclera ENMT: nl external ears & nose, nl lips & teeth, nl nasal mucosa & septum Neck: non-tender, supple Respiratory: clear to auscultation, normal air movement Cardiovascular: nl pulses, regular rate and rhythm Gastrointestinal: nl liver, spleen, non-tender, soft Genitourinary - Female: No CMT, No CVA tenderness, No nl adnexae, No nl external genitalia, No other, No uterus Extremities: normal pulses 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: ENERGY ECONOMIST II-XII intact, nl mental status, nl speech, nl strength Results Result Diagram: 12/12/16 0629 12/11/16 0643 Results 24 hrs Laboratory Tests Test 12/11/16 18:08 12/11/16 21:08 12/12/16 06:29 12/12/16 07:52 Bedside Glucose 148 148 89 White Blood Count 11.5 H Red Blood Count 2.75 L Hemoglobin 8.0 L Hematocrit 27.2 L Mean Corpuscular Volume 98.9 Mean Corpuscular Hemoglobin 29.1 Mean Corpuscular Hemoglobin Concent 29.4 L Red Cell Distribution Width 16.3 H Platelet Count 357 Mean Platelet Volume 8.4 Neutrophils % 62.9 Lymphocytes % 21.3 Monocytes % 6.8 Eosinophils % 8.1 H Basophils % 0.5 Nucleated Red Blood Cells % 0.0 Neutrophils # 7.3 Lymphocytes # 2.5 Monocytes # 0.8 Eosinophils # 0.9 H Basophils # 0.1 Nucleated Red Blood Cells # 0.0 Test 12/12/16 11:56 Bedside Glucose 93 Medications Medications Current Medications Sertraline HCl (Zoloft) 100 mg DAILY PO Last administered on 12/12/16 08:23; Admin Dose 100 MG; Start 12/07/16 at 09:00 Amlodipine Besylate (Norvasc) 5 mg BID PO Last administered on 12/12/16 08:22; Admin Dose 5 MG; Start 12/06/16 at 21:00 Losartan Potassium (Cozaar) 50 mg BID PO Last administered on 12/12/16 08:23; Admin Dose 50 MG; Start 12/06/16 at 21:00 Atorvastatin Calcium (Lipitor) 80 mg DAILY@21 PO Last administered on 12/11/16 21:09; Admin Dose 80 MG; Start 12/06/16 at 21:00 Polyethylene Glycol (Miralax) 17 gm DAILY PO Last administered on 12/12/16 08: 23; Admin Dose 17 GM; Start 12/07/16 at 09:00 Docusate Sodium (Colace) 100 mg BID PO Last administered on 12/12/16 08:22; Admin Dose 100 MG; Start 12/06/16 at 21:00 Metoprolol Tartrate (Lopressor) 100 mg BID PO Last administered on 12/12/16 08: 23; Admin Dose 100 MG; Start 12/06/16 at 21:00 Vitamin B Complex/ Vitamin C (Berocca) 1 cap BID PO Last administered on 08:22; Admin Dose 1 CAP; Start 12/06/16 at 21:00 Cholecalciferol (Vitamin D) 400 units DAILY PO Last administered on 12/12/16 08 :18; Admin Dose 400 UNITS; Start 12/07/16 at 09:00 Pantoprazole (Protonix Tab) 40 mg DAILY@06 PO Last administered on 12/12/16 06: 47; Admin Dose 40 MG; Start 12/07/16 at 06:00 Gabapentin (Neurontin) 400 mg Q8 PO Last administered on 12/12/16 06:46; Admin Dose 400 MG; Start 12/06/16 at 22:00 Hydralazine HCl (Apresoline) 50 mg TID PO Last administered on 12/12/16 12:21; Admin Dose 50 MG; Start 12/06/16 at 21:00 Methocarbamol (Robaxin) 500 mg TID PRN PO MUSCLE SPASMS Last administered on 10:36; Admin Dose 500 MG; Start 12/06/16 at 17:00 Diphenhydramine HCl (Benadryl) 25 mg Q6H PRN PO ITCHING Last administered on 10:33; Admin Dose 25 MG; Start 12/06/16 at 15:30 Miscellaneous Information 1 ea NOTE XX ; Start 12/06/16 at 16:00 Glucose (Glutose) 15 gm Q15M PRN PO DECREASED GLUCOSE; Start 12/06/16 at 16:00 Glucose (Glutose) 22.5 gm Q15M PRN PO DECREASED GLUCOSE; Start 12/06/16 at 16: 00 Dextrose (D50w Syringe) 25 ml Q15M PRN IV DECREASED GLUCOSE; Start 12/06/16 at 16:00 Dextrose (D50w Syringe) 50 ml Q15M PRN IV DECREASED GLUCOSE; Start 12/06/16 at 16:00 Glucagon (Glucagen) 1 mg Q15M PRN IM DECREASED GLUCOSE; Start 12/06/16 at 16:00 Glucose (Glutose) 15 gm Q15M PRN BUCCAL DECREASED GLUCOSE; Start 12/06/16 at 16 :00 Senna (Senokot) 1 tab HS PO Last administered on 12/11/16 21:09; Admin Dose 1 TAB; Start 12/06/16 at 21:00 Acetaminophen (Tylenol Tab) 650 mg Q4H PRN PO PAIN; Start 12/06/16 at 17:00 Magnesium Hydroxide (Milk Of Mag) 30 ml BID PRN PO CONSTIPATION; Start at 17:00 Lactulose (Enulose) 20 gm DAILY PRN PO CONSTIPATION; Start 12/06/16 at 17:00 Oxycodone HCl (Oxycontin) 10 mg Q8 PO Last administered on 12/12/16 06:46; Admin Dose 10 MG; Start 12/07/16 at 11:30 Bisacodyl (Dulcolax Supp) 10 mg DAILY [place] ; Start 12/08/16 at 09:00 Mupirocin (Bactroban) 1 applic BID TOP Last administered on 12/12/16 08:31; Admin Dose 1 APPLIC; Start 12/07/16 at 21:00; Stop 12/14/16 at 20:59 Hydromorphone HCl (Dilaudid) 0.5 mg Q4H PRN IV PAIN Last administered on 12/12/16 12:22; Admin Dose 0.5 MG; Start 12/09/16 at 11:30 Warfarin Sodium 8 mg 8 mg DAILY@17 PO Last administered on 12/11/16 18:12; Admin Dose 8 MG; Start 12/10/16 at 17:00 Ferric Sodium Gluconate Complex/ Sodium Chloride (Ferrlecit/NS) 110 ml @ 110 mls/hr Q24H IVPB Last administered on 12/11/16 21:11; Admin Dose 110 MLS/HR; Start 12/11/16 at 21:00; Stop 12/15/16 at 21:59 AMBREEN BAUGH MD Dec 12, 2016 13:47
[2016-12-12 15:00] VITALS: BP 158/63; RESP 18
--- NOTE | 2016-12-12 15:48 | CONS ---
Date/Time of Note Date/Time of Note DATE: 12/12/16 TIME: 15:27 Assessment/Plan Assessment/Plan Chief Complaint/Hosp Course ID PROGRESS NOTE CURRENT ABX: KEFLEX #1 + Start Cancidas + Give Fosfomycin 3gm PO x1 today DC Keflex 8/6 24H INTERVAL SUMMARY * 12/11/17 UA w/many bacteria ==> Preliminary urine (+)low colony <10,000 yeast - may or may not be significant, sxs include lethargy, no fevers, with leukocytosis, * ?early UTI -- she is s/p lengthy course of ABX for osteomyelitis = risk factor for yeast * s/p HD yesterday w/2L removed * Pain issues -- po opioids PRN * LAB 12/12/16 0629 12/11/16 0643 ID ASSESSMENT 51 yo F w/PMHx HTN, HLD, CAD, Afib, CVA, DVT, Psych Dx: Anxiety/Depression admit to [facility] with: 1. T7 incomplete paraplegia due to epidural abscess/osteomyelitis-status post thoracic laminectomy, drainage of abscess, with impaired mobility and ADLs. * Patient has completed full course of ABX for osteomyelitis, per Dr. Samaniego note = continue to monitor OFF ABX 2. SIRS w/leukocytosis == Non-specific reactive, possible early UTI * URINE Cx 12/11 (+) Funguria == Possible early UTI * URINE CULTURE Preliminary Organism 1 JAMILAH ALBICANS COLONY COUNT <10,000 CFU/ml 3. Status post respiratory failure. 4. COPD 5. Toxic metabolic encephalopathy w/impairments in short term memory/ ? Dysphagia = Aspiration pneumonitis risk 6. Diabetes Mellitus type 2 7. ESRD on hemodialysis per nephrology. (-)MRSA Nares CURRENT ABX: Start Diflucan ID RECOMMENDATIONS 1. UA with many bacteria == let's give her Fosfomycin x1 we don't know if it is enterococcus or ESBL * DC Keflex -- we don't know what bacterial pathogen we are treating == Fosfomycin has best change to clear bacteruria or UTI x1 * She is also growing yeast => Start Cancidas (NOTE: Diflucan has too many drug/ drug interactions w/her meds including Coumadin) 2. Monitor response to ABX for concern UTI and f/u on final urine Cx => Pending 3. Per Dr. Samaniego recs: Has completed adequate course of ABX for osteomyelitis, observe off ABX * Will check in next 1-3 days see how she is doing anticipate DC Cancidas Wednesday Problems: Consultation Date/Type/Reason Admit Date/Time Dec 06, 2016 at 10:56 Initial Consult Date 12/10/16 Type of Consultation: ID Exam/Review of Systems Vital Signs Vitals Vital Signs Date Time Temp Pulse Resp B/P Pulse Ox O2 Delivery O2 Flow Rate FiO2 12/12/16 15:00 98.2 74 18 158/63 92 12/12/16 14:54 2.0 12/12/16 14:35 Nasal Cannula 12/11/16 21:13 21 Intake and Output 12/11/16 12/11/16 12/12/16 15:00 23:00 07:00 Intake Total 1290 ml Output Total 150 ml 2500 ml Balance -150 ml -1210 ml Results Result Diagram: 12/12/16 0629 12/11/16 0643 Results 24 hrs Laboratory Tests Test 12/11/16 18:08 12/11/16 21:08 12/12/16 06:29 12/12/16 07:52 Bedside Glucose 148 148 89 White Blood Count 11.5 H Red Blood Count 2.75 L Hemoglobin 8.0 L Hematocrit 27.2 L Mean Corpuscular Volume 98.9 Mean Corpuscular Hemoglobin 29.1 Mean Corpuscular Hemoglobin Concent 29.4 L Red Cell Distribution Width 16.3 H Platelet Count 357 Mean Platelet Volume 8.4 Neutrophils % 62.9 Lymphocytes % 21.3 Monocytes % 6.8 Eosinophils % 8.1 H Basophils % 0.5 Nucleated Red Blood Cells % 0.0 Neutrophils # 7.3 Lymphocytes # 2.5 Monocytes # 0.8 Eosinophils # 0.9 H Basophils # 0.1 Nucleated Red Blood Cells # 0.0 Test 12/12/16 11:56 Bedside Glucose 93 Medications Medications Current Medications Sertraline HCl (Zoloft) 100 mg DAILY PO Last administered on 12/12/16 08:23; Admin Dose 100 MG; Start 12/07/16 at 09:00 Amlodipine Besylate (Norvasc) 5 mg BID PO Last administered on 12/12/16 08:22; Admin Dose 5 MG; Start 12/06/16 at 21:00 Losartan Potassium (Cozaar) 50 mg BID PO Last administered on 12/12/16 08:23; Admin Dose 50 MG; Start 12/06/16 at 21:00 Atorvastatin Calcium (Lipitor) 80 mg DAILY@21 PO Last administered on 12/11/16 21:09; Admin Dose 80 MG; Start 12/06/16 at 21:00 Polyethylene Glycol (Miralax) 17 gm DAILY PO Last administered on 12/12/16 08: 23; Admin Dose 17 GM; Start 12/07/16 at 09:00 Docusate Sodium (Colace) 100 mg BID PO Last administered on 12/12/16 08:22; Admin Dose 100 MG; Start 12/06/16 at 21:00 Metoprolol Tartrate (Lopressor) 100 mg BID PO Last administered on 12/12/16 08: 23; Admin Dose 100 MG; Start 12/06/16 at 21:00 Vitamin B Complex/ Vitamin C (Berocca) 1 cap BID PO Last administered on 08:22; Admin Dose 1 CAP; Start 12/06/16 at 21:00 Cholecalciferol (Vitamin D) 400 units DAILY PO Last administered on 12/12/16 08 :18; Admin Dose 400 UNITS; Start 12/07/16 at 09:00 Pantoprazole (Protonix Tab) 40 mg DAILY@06 PO Last administered on 12/12/16 06: 47; Admin Dose 40 MG; Start 12/07/16 at 06:00 Gabapentin (Neurontin) 400 mg Q8 PO Last administered on 12/12/16 14:22; Admin Dose 400 MG; Start 12/06/16 at 22:00 Hydralazine HCl (Apresoline) 50 mg TID PO Last administered on 12/12/16 12:21; Admin Dose 50 MG; Start 12/06/16 at 21:00 Methocarbamol (Robaxin) 500 mg TID PRN PO MUSCLE SPASMS Last administered on 10:36; Admin Dose 500 MG; Start 12/06/16 at 17:00 Diphenhydramine HCl (Benadryl) 25 mg Q6H PRN PO ITCHING Last administered on 10:33; Admin Dose 25 MG; Start 12/06/16 at 15:30 Miscellaneous Information 1 ea NOTE XX ; Start 12/06/16 at 16:00 Glucose (Glutose) 15 gm Q15M PRN PO DECREASED GLUCOSE; Start 12/06/16 at 16:00 Glucose (Glutose) 22.5 gm Q15M PRN PO DECREASED GLUCOSE; Start 12/06/16 at 16: 00 Dextrose (D50w Syringe) 25 ml Q15M PRN IV DECREASED GLUCOSE; Start 12/06/16 at 16:00 Dextrose (D50w Syringe) 50 ml Q15M PRN IV DECREASED GLUCOSE; Start 12/06/16 at 16:00 Glucagon (Glucagen) 1 mg Q15M PRN IM DECREASED GLUCOSE; Start 12/06/16 at 16:00 Glucose (Glutose) 15 gm Q15M PRN BUCCAL DECREASED GLUCOSE; Start 12/06/16 at 16 :00 Senna (Senokot) 1 tab HS PO Last administered on 12/11/16 21:09; Admin Dose 1 TAB; Start 12/06/16 at 21:00 Acetaminophen (Tylenol Tab) 650 mg Q4H PRN PO PAIN; Start 12/06/16 at 17:00 Magnesium Hydroxide (Milk Of Mag) 30 ml BID PRN PO CONSTIPATION; Start at 17:00 Lactulose (Enulose) 20 gm DAILY PRN PO CONSTIPATION; Start 12/06/16 at 17:00 Oxycodone HCl (Oxycontin) 10 mg Q8 PO Last administered on 12/12/16 14:22; Admin Dose 10 MG; Start 12/07/16 at 11:30 Bisacodyl (Dulcolax Supp) 10 mg DAILY SC ; Start 12/08/16 at 09:00 Mupirocin (Bactroban) 1 applic BID TOP Last administered on 12/12/16 08:31; Admin Dose 1 APPLIC; Start 12/07/16 at 21:00; Stop 12/14/16 at 20:59 Hydromorphone HCl (Dilaudid) 0.5 mg Q4H PRN IV PAIN Last administered on 12/12/16 12:22; Admin Dose 0.5 MG; Start 12/09/16 at 11:30 Warfarin Sodium 8 mg 8 mg DAILY@17 PO Last administered on 12/11/16 18:12; Admin Dose 8 MG; Start 12/10/16 at 17:00 Ferric Sodium Gluconate Complex/ Sodium Chloride (Ferrlecit/NS) 110 ml @ 110 mls/hr Q24H IVPB Last administered on 12/11/16t 21:11; Admin Dose 110 MLS/HR; Start 12/11/16 at 21:00; Stop 12/15/16 at 21:59 Phenazopyridine HCl (Pyridium) 100 mg TID PO ; Start 12/12/16 at 21:00 ILIANA SALDANA NP Dec 12, 2016 15:38
[2016-12-12] MEDS: WARFARIN 2 MG TAB PO SCH (16:59)
[2016-12-12] MEDS ORDERED: FOSFOMYCIN 3 GM PACKET PO ONE (17:00)
[2016-12-12] MEDS ORDERED: CASPOFUNGIN 70 MG in SOD CHLORIDE 0.9% 250 ML IVPB ONE (17:00)
[2016-12-12] MEDS ORDERED: CEPHALEXIN 250 MG CAP PO SCH (17:35)
--- NOTE | 2016-12-12 17:54 | PN ---
Date/Time of Note Date/Time of Note DATE: 12/12/16 TIME: 17:53 Assessment/Plan VTE Prophylaxis VTE Prophylaxis Intervention: other Lines/Catheters IV Catheter Type (from [facility]): Levi cath Urinary Cath still in place: No Assessment/Plan Chief Complaint/Hosp Course 1. History of P-atrial fibrillation. Currently in NSR 2. History of CVA 3. Hypertension. 4. Renal failure, on dialysis. 5. History of dyslipidemia. 6. History of multiple infections. 7. Discitis. 8. Severe anemia. 9. History of deep vein thrombosis. 10. hyper K: to be corrected by HD. Adjust coumadin to goal INR 2-3 ECHO shows normal EF AND LA size. cont betablocker. HD as per renal will check daily PT/INR and adjust coumadin dosing. Cont PT THANK YOU Problems: Subjective 24 Hr Interval Summary Free Text/Dictation d/w staff pt still c/o abdominal pain but better no chest pain or pressure. no palpitations or bleeding she has fatigue no bleeding. OBJECTIVE: General: no acute distress. Obese female. HEENT: NC/AT. pupils are equal. round. NECK: NO JVD. no stridor. CV: RRR. systolic murmur; no gallop or rubs. chest: s/p R HD access in place. PULM: no wheezing or rhonchi. GI: SOFT, NT, ND, no rebound or guarding. Obese Extremity: + B/L LE edema. no clubbing. neuro: awake and alert,. Psych: calm and pleasant rectal: deferred ECG 12/08/16: NSR. echo 12/08/16 reviewed: 1. Normal left ventricular systolic function. Normal left ventricular cavity size. Mild concentric left ventricular hypertrophy. Ejection fraction is visually estimated at 55 %. Abnormal Diastolic Function. 2. The left atrium is normal in size. 3. Mitral valve leaflets appear mildly thickened. Mild mitral annular calcification. Trace mitral regurgitation. 4. Normal appearance of the aortic valve. No significant aortic stenosis or insufficiency. 5. Normal appearance of the tricuspid valve. Estimated peak PA systolic pressure 42 mmHg. There is mild tricuspid regurgitation. 6. Normal size and normal respiratory collapse consistent with normal right atrial pressure. Exam/Review of Systems Vital Signs Vitals Vital Signs Date Time Temp Pulse Resp B/P Pulse Ox O2 Delivery O2 Flow Rate FiO2 12/12/16 15:00 98.2 74 18 158/63 92 12/12/16 14:54 2.0 12/12/16 14:35 Nasal Cannula 12/11/16 21:13 21 Intake and Output 12/11/16 12/11/16 12/12/16 15:00 23:00 07:00 Intake Total 1290 ml Output Total 150 ml 2500 ml Balance -150 ml -1210 ml Results Result Diagram: 12/12/16 0629 12/11/16 0643 Results 24 hrs Laboratory Tests Test 12/11/16 18:08 12/11/16 21:08 12/12/16 06:29 12/12/16 07:52 Bedside Glucose 148 148 89 White Blood Count 11.5 H Red Blood Count 2.75 L Hemoglobin 8.0 L Hematocrit 27.2 L Mean Corpuscular Volume 98.9 Mean Corpuscular Hemoglobin 29.1 Mean Corpuscular Hemoglobin Concent 29.4 L Red Cell Distribution Width 16.3 H Platelet Count 357 Mean Platelet Volume 8.4 Neutrophils % 62.9 Lymphocytes % 21.3 Monocytes % 6.8 Eosinophils % 8.1 H Basophils % 0.5 Nucleated Red Blood Cells % 0.0 Neutrophils # 7.3 Lymphocytes # 2.5 Monocytes # 0.8 Eosinophils # 0.9 H Basophils # 0.1 Nucleated Red Blood Cells # 0.0 Test 12/12/16 11:56 12/12/16 16:57 Bedside Glucose 93 136 Medications Medications Current Medications Sertraline HCl (Zoloft) 100 mg DAILY PO Last administered on 12/12/16 08:23; Admin Dose 100 MG; Start 12/07/16 at 09:00 Amlodipine Besylate (Norvasc) 5 mg BID PO Last administered on 12/12/16 08:22; Admin Dose 5 MG; Start 12/06/16 at 21:00 Losartan Potassium (Cozaar) 50 mg BID PO Last administered on 12/12/16 08:23; Admin Dose 50 MG; Start 12/06/16 at 21:00 Atorvastatin Calcium (Lipitor) 80 mg DAILY@21 PO Last administered on 12/11/16 21:09; Admin Dose 80 MG; Start 12/06/16 at 21:00 Polyethylene Glycol (Miralax) 17 gm DAILY PO Last administered on 12/12/16 08: 23; Admin Dose 17 GM; Start 12/07/16 at 09:00 Docusate Sodium (Colace) 100 mg BID PO Last administered on 12/12/16 08:22; Admin Dose 100 MG; Start 12/06/16 at 21:00 Metoprolol Tartrate (Lopressor) 100 mg BID PO Last administered on 12/12/16 08: 23; Admin Dose 100 MG; Start 12/06/16 at 21:00 Vitamin B Complex/ Vitamin C (Berocca) 1 cap BID PO Last administered on 08:22; Admin Dose 1 CAP; Start 12/06/16 at 21:00 Cholecalciferol (Vitamin D) 400 units DAILY PO Last administered on 12/12/16 08 :18; Admin Dose 400 UNITS; Start 12/07/16 at 09:00 Pantoprazole (Protonix Tab) 40 mg DAILY@06 PO Last administered on 12/12/16 06: 47; Admin Dose 40 MG; Start 12/07/16 at 06:00 Gabapentin (Neurontin) 400 mg Q8 PO Last administered on 12/12/16 14:22; Admin Dose 400 MG; Start 12/06/16 at 22:00 Hydralazine HCl (Apresoline) 50 mg TID PO Last administered on 12/12/16 12:21; Admin Dose 50 MG; Start 12/06/16 at 21:00 Methocarbamol (Robaxin) 500 mg TID PRN PO MUSCLE SPASMS Last administered on 10:36; Admin Dose 500 MG; Start 12/06/16 at 17:00 Diphenhydramine HCl (Benadryl) 25 mg Q6H PRN PO ITCHING Last administered on 10:33; Admin Dose 25 MG; Start 12/06/16 at 15:30 Miscellaneous Information 1 ea NOTE XX ; Start 12/06/16 at 16:00 Glucose (Glutose) 15 gm Q15M PRN PO DECREASED GLUCOSE; Start 12/06/16 at 16:00 Glucose (Glutose) 22.5 gm Q15M PRN PO DECREASED GLUCOSE; Start 12/06/16 at 16: 00 Dextrose (D50w Syringe) 25 ml Q15M PRN IV DECREASED GLUCOSE; Start 12/06/16 at 16:00 Dextrose (D50w Syringe) 50 ml Q15M PRN IV DECREASED GLUCOSE; Start 12/06/16 at 16:00 Glucagon (Glucagen) 1 mg Q15M PRN IM DECREASED GLUCOSE; Start 12/06/16 at 16:00 Glucose (Glutose) 15 gm Q15M PRN BUCCAL DECREASED GLUCOSE; Start 12/06/16 at 16 :00 Senna (Senokot) 1 tab HS PO Last administered on 12/11/16 21:09; Admin Dose 1 TAB; Start 12/06/16 at 21:00 Acetaminophen (Tylenol Tab) 650 mg Q4H PRN PO PAIN; Start 12/06/16 at 17:00 Magnesium Hydroxide (Milk Of Mag) 30 ml BID PRN PO CONSTIPATION; Start at 17:00 Lactulose (Enulose) 20 gm DAILY PRN PO CONSTIPATION; Start 12/06/16 at 17:00 Oxycodone HCl (Oxycontin) 10 mg Q8 PO Last administered on 12/12/16 14:22; Admin Dose 10 MG; Start 12/07/16 at 11:30 Bisacodyl (Dulcolax Supp) 10 mg DAILY DE ; Start 12/08/16 at 09:00 Mupirocin (Bactroban) 1 applic BID TOP Last administered on 12/12/16 08:31; Admin Dose 1 APPLIC; Start 12/07/16 at 21:00; Stop 12/14/16 at 20:59 Hydromorphone HCl (Dilaudid) 0.5 mg Q4H PRN IV PAIN Last administered on 12/12/16 12:22; Admin Dose 0.5 MG; Start 12/09/16 at 11:30 Warfarin Sodium 8 mg 8 mg DAILY@17 PO Last administered on 12/12/16 16:59; Admin Dose 8 MG; Start 12/10/16 at 17:00 Ferric Sodium Gluconate Complex/ Sodium Chloride (Ferrlecit/NS) 110 ml @ 110 mls/hr Q24H IVPB Last administered on 12/11/16 21:11; Admin Dose 110 MLS/HR; Start 12/11/16 at 21:00; Stop 12/15/16 at 21:59 Phenazopyridine HCl 100 mg 100 mg TID PO ; Start 12/12/16 at 21:00 Caspofungin 70 mg/ Sodium Chloride 250 ml @ 250 mls/hr ONCE ONCE IVPB Last administered on 12/12/16t 17:01; Admin Dose 250 MLS/HR; Start 12/12/16 at 17:00; Stop 12/12/16 at 17:59 Caspofungin/ Sodium Chloride (Cancidas/NS) 250 ml @ 250 mls/hr Q24H IVPB ; Start 12/13/16 at 17:00 TAMERA BAILEY MD Dec 12, 2016 17:54
[2016-12-12] MEDS: SOD FERRIC GLUC COMPLX 125 MG in SOD CHLORIDE 0.9% 100 ML IVPB SCH (20:09)
[2016-12-12] MEDS: PHENAZOPYRIDINE 100 MG TAB PO SCH (20:15)
[2016-12-12 20:16] VITALS: BP 153/74; PULSE 74; RESP 18
[2016-12-12] MEDS: ATORVASTATIN 80 MG TAB PO SCH (20:16)
[2016-12-12] MEDS: SENNA TAB PO SCH (20:16)
[2016-12-13] MEDS: HYDROmorphONE 1 MG/ML SYG IV PRN ×7 (00:03→23:02)
[2016-12-13 03:25] VITALS: BP 142/63; RESP 18
[2016-12-13] MEDS: oxyCODONE (CR) 10 MG TAB [oxyCONTIN] PO SCH ×3 (06:20→22:04)
[2016-12-13] MEDS: PANTOPRAZOLE (EC) 40 MG TAB PO SCH (06:20)
[2016-12-13] MEDS: GABAPENTIN 400 MG CAP PO SCH ×3 (06:20→22:04)
[2016-12-13 07:28] LABS: INR 1.41; PROTIME 17.3 Sec (12.2-14.2); PT RATIO 1.4
[2016-12-13] MEDS: ALBUTEROL/IPRATROPIUM (NEB) 3 ML AMP HHN SCH ×4 (08:00→19:08)
[2016-12-13] MEDS: SEVELAMER 800 MG TAB PO SCH ×3 (08:29→17:48)
[2016-12-13] MEDS: Insulin ASPART slide scale (Novolog) SC SCH ×4 (08:30→20:57)
[2016-12-13] MEDS: BISACODYL 10 MG SUPP PR SCH (09:00)
[2016-12-13] MEDS: POLYETHYLENE GLYCOL 17 GM PACKET PO SCH (09:00)
[2016-12-13] MEDS: MUPIROCIN 2% 22 GM OINT TOP SCH ×2 (09:00→21:00)
[2016-12-13] MEDS: PHENAZOPYRIDINE 100 MG TAB PO SCH ×3 (09:56→20:58)
[2016-12-13] MEDS: CHOLECALCIFEROL 400 UNITS TAB PO SCH (09:56)
[2016-12-13] MEDS: SERTRALINE 100 MG TAB PO SCH (09:56)
[2016-12-13] MEDS: VITAMIN B COMPLEX/VIT C CAP PO SCH ×2 (09:56→21:00)
[2016-12-13] MEDS: DOCUSATE SODIUM 100 MG CAP PO SCH ×2 (09:56→20:58)
[2016-12-13] MEDS: LOSARTAN 50 MG TAB PO SCH ×2 (09:57→20:59)
[2016-12-13] MEDS: AMLODIPINE 5 MG TAB PO SCH ×2 (09:58→20:59)
[2016-12-13] MEDS: METOPROLOL 100 MG TAB PO SCH ×2 (09:58→20:59)
--- NOTE | 2016-12-13 11:12 | PN ---
Date/Time of Note Date/Time of Note DATE: 12/13/16 TIME: 11:00 Assessment/Plan VTE Prophylaxis VTE Prophylaxis Intervention: other (coumadin) Lines/Catheters IV Catheter Type (from Nrsg): nelly cath Urinary Cath still in place: No Assessment/Plan Assessment/Plan 1. 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 Continue PT/OT. SBA for grooming, min assist for lower body dressing. Completed course of antibiotics per infectious disease, consider repeat imaging given continued significant pain, to discuss with infectious disease team. Continue pain regimen, adjusted IV dilaudid at this time for severe breakthrough pain. Monitor closely for sedation. 2. Status post respiratory failure. 3. Toxic metabolic encephalopathy. Continue ST for cognitive training. 4. Diabetes Mellitus type 2. Blood sugars controlled. Continue medical management per internal medicine. 5. End stage renal disease. Continue hemodialysis per nephrology. 6. PAfib. Continue medical management per cardiology. 7. Coronary Artery Disease. Continue medical management. 8. History of DVT. Continue anticoagulation. 9. Hypertension. BP controlled. Continue medical management. 10. Hypercholesterolemia. Continue statin. 11. COPD. Stable. Continue breathing treatments. 12. Possible UTI. Infectious disease has been consulted and managing. Follow up final culture results. 13. History of CVA. Continue secondary stroke prevention. 14. Anxiety/depression. Continue medical management. 15. Anemia. On epogen and iron supplementation per internal medicine. Subjective 24 Hr Interval Summary Free Text/Dictation Rehab progress note Subjective/History: Reports severe pain in her back, asking to change dilaudid from q4h prn to q3h prn. Has been taking IV dilaudid for breakthrough pain about 3-4 times daily in the past few days. ROS: Denies new weakness or new paresthesias, denies further dysuria, no abdominal pain, no nausea or vomiting, no chills, no fevers. Exam/Review of Systems Vital Signs Vitals Vital Signs Date Time Temp Pulse Resp B/P Pulse Ox O2 Delivery O2 Flow Rate FiO2 12/13/16 10:57 72 18 98 Nasal Cannula 2.0 12/13/16 03:25 98.5 142/63 12/11/16 21:13 21 Intake and Output 12/12/16 12/12/16 12/13/16 15:00 23:00 07:00 Intake Total 800 ml 1200 ml Balance 800 ml 1200 ml Exam General: Awake, alert, no acute distress, obese CV: Regular rate, S1S2 audible Lungs: Respirations are nonlabored, no wheezing or crackles Abdomen soft, +bowel sounds Extremities without cyanosis, no new swelling. Neuro: No focal changes. Antigravity strength BUE. Follows simple commands. Results Result Diagram: 12/12/16 0629 12/11/16 0643 Results 24 hrs Laboratory Tests Test 12/12/16 11:56 12/12/16 16:57 12/12/16 20:21 12/13/16 06:18 Bedside Glucose 93 136 142 Prothrombin Time 17.3 H Prothrombin Time Ratio 1.4 INR International Normalized Ratio 1.41 Test 12/13/16 08:04 Bedside Glucose 97 Medications Medications Current Medications Sertraline HCl (Zoloft) 100 mg DAILY PO Last administered on 12/13/16 09:56; Admin Dose 100 MG; Start 12/07/16 at 09:00 Amlodipine Besylate (Norvasc) 5 mg BID PO Last administered on 12/13/16 09:58; Admin Dose 5 MG; Start 12/06/16 at 21:00 Losartan Potassium (Cozaar) 50 mg BID PO Last administered on 12/13/16 09:57; Admin Dose 50 MG; Start 12/06/16 at 21:00 Atorvastatin Calcium (Lipitor) 80 mg DAILY@21 PO Last administered on 12/12/16 20:16; Admin Dose 80 MG; Start 12/06/16 at 21:00 Polyethylene Glycol (Miralax) 17 gm DAILY PO Last administered on 12/12/16 08: 23; Admin Dose 17 GM; Start 12/07/16 at 09:00 Docusate Sodium (Colace) 100 mg BID PO Last administered on 12/13/16 09:56; Admin Dose 100 MG; Start 12/06/16 at 21:00 Metoprolol Tartrate (Lopressor) 100 mg BID PO Last administered on 12/13/16 09: 58; Admin Dose 100 MG; Start 12/06/16 at 21:00 Vitamin B Complex/ Vitamin C (Berocca) 1 cap BID PO Last administered on 09:56; Admin Dose 1 CAP; Start 12/06/16 at 21:00 Cholecalciferol (Vitamin D) 400 units DAILY PO Last administered on 12/13/16 09 :56; Admin Dose 400 UNITS; Start 12/07/16 at 09:00 Pantoprazole (Protonix Tab) 40 mg DAILY@06 PO Last administered on 12/13/16 06: 20; Admin Dose 40 MG; Start 12/07/16 at 06:00 Gabapentin (Neurontin) 400 mg Q8 PO Last administered on 12/13/16 06:20; Admin Dose 400 MG; Start 12/06/16 at 22:00 Hydralazine HCl (Apresoline) 50 mg TID PO Last administered on 12/13/16 09:58; Admin Dose 50 MG; Start 12/06/16 at 21:00 Methocarbamol (Robaxin) 500 mg TID PRN PO MUSCLE SPASMS Last administered on 10:36; Admin Dose 500 MG; Start 12/06/16 at 17:00 Diphenhydramine HCl (Benadryl) 25 mg Q6H PRN PO ITCHING Last administered on 10:33; Admin Dose 25 MG; Start 12/06/16 at 15:30 Miscellaneous Information 1 ea NOTE XX ; Start 12/06/16 at 16:00 Glucose (Glutose) 15 gm Q15M PRN PO DECREASED GLUCOSE; Start 12/06/16 at 16:00 Glucose (Glutose) 22.5 gm Q15M PRN PO DECREASED GLUCOSE; Start 12/06/16 at 16: 00 Dextrose (D50w Syringe) 25 ml Q15M PRN IV DECREASED GLUCOSE; Start 12/06/16 at 16:00 Dextrose (D50w Syringe) 50 ml Q15M PRN IV DECREASED GLUCOSE; Start 12/06/16 at 16:00 Glucagon (Glucagen) 1 mg Q15M PRN IM DECREASED GLUCOSE; Start 12/06/16 at 16:00 Glucose (Glutose) 15 gm Q15M PRN BUCCAL DECREASED GLUCOSE; Start 12/06/16 at 16 :00 Senna (Senokot) 1 tab HS PO Last administered on 12/12/16 20:16; Admin Dose 1 TAB; Start 12/06/16 at 21:00 Acetaminophen (Tylenol Tab) 650 mg Q4H PRN PO PAIN; Start 12/06/16 at 17:00 Magnesium Hydroxide (Milk Of Mag) 30 ml BID PRN PO CONSTIPATION; Start at 17:00 Lactulose (Enulose) 20 gm DAILY PRN PO CONSTIPATION; Start 12/06/16 at 17:00 Oxycodone HCl (Oxycontin) 10 mg Q8 PO Last administered on 12/13/16 06:20; Admin Dose 10 MG; Start 12/07/16 at 11:30 Bisacodyl (Dulcolax Supp) 10 mg DAILY [place] ; Start 12/08/16 at 09:00 Mupirocin (Bactroban) 1 applic BID TOP Last administered on 12/12/16 20:23; Admin Dose 1 APPLIC; Start 12/07/16 at 21:00; Stop 12/14/16 at 20:59 Hydromorphone HCl (Dilaudid) 0.5 mg Q4H PRN IV PAIN Last administered on 12/13/16 08:31; Admin Dose 0.5 MG; Start 12/09/16 at 11:30 Warfarin Sodium 8 mg 8 mg DAILY@17 PO Last administered on 12/12/16 16:59; Admin Dose 8 MG; Start 12/10/16 at 17:00 Ferric Sodium Gluconate Complex/ Sodium Chloride (Ferrlecit/NS) 110 ml @ 110 mls/hr Q24H IVPB Last administered on 12/12/16 20:09; Admin Dose 110 MLS/HR; Start 12/11/16 at 21:00; Stop 12/15/16 at 21:59 Phenazopyridine HCl 100 mg 100 mg TID PO Last administered on 12/13/16 09:56; Admin Dose 100 MG; Start 12/12/16 at 21:00 Caspofungin/ Sodium Chloride (Cancidas/NS) 250 ml @ 250 mls/hr Q24H IVPB ; Start 12/13/16 at 17:00 FLASH GRACE Dec 13, 2016 11:11
--- NOTE | 2016-12-13 12:40 | CONS ---
Date/Time of Note Date/Time of Note DATE: 12/13/16 TIME: 12:39 Consult Date/Type/Reason Admit Date/Time Dec 06, 2016 at 10:56 Initial Consult Date 12/10/16 Type of Consultation: CARDIOLOGY Subjective CARDIOLOGY FOLLOW UP d/w staff pt still c/o left hip pain now. no chest pain or pressure. no palpitations or bleeding she has fatigue no bleeding. OBJECTIVE: General: no acute distress. Obese female. HEENT: NC/AT. pupils are equal. round. NECK: NO JVD. no stridor. CV: RRR. systolic murmur; no gallop or rubs. chest: s/p R HD access in place. PULM: no wheezing or rhonchi. GI: SOFT, NT, ND, no rebound or guarding. Obese Extremity: + B/L LE edema. no clubbing. neuro: awake and alert,. Psych: calm and pleasant rectal: deferred ECG 12/08/16: NSR. echo 12/08/16 reviewed: 1. Normal left ventricular systolic function. Normal left ventricular cavity size. Mild concentric left ventricular hypertrophy. Ejection fraction is visually estimated at 55 %. Abnormal Diastolic Function. 2. The left atrium is normal in size. 3. Mitral valve leaflets appear mildly thickened. Mild mitral annular calcification. Trace mitral regurgitation. 4. Normal appearance of the aortic valve. No significant aortic stenosis or insufficiency. 5. Normal appearance of the tricuspid valve. Estimated peak PA systolic pressure 42 mmHg. There is mild tricuspid regurgitation. 6. Normal size and normal respiratory collapse consistent with normal right atrial pressure. Objective Vital Signs Date Time Temp Pulse Resp B/P Pulse Ox O2 Delivery O2 Flow Rate FiO2 12/13/16 10:57 72 18 98 Nasal Cannula 2.0 12/13/16 03:25 98.5 142/63 12/11/16 21:13 21 Intake and Output 12/12/16 12/12/16 12/13/16 15:00 23:00 07:00 Intake Total 800 ml 1200 ml Balance 800 ml 1200 ml Results/Medications Result Diagram: 12/12/16 0629 12/11/16 0643 Results 24 hrs Laboratory Tests Test 12/12/16 16:57 12/12/16 20:21 12/13/16 06:18 12/13/16 08:04 Bedside Glucose 136 142 97 Prothrombin Time 17.3 H Prothrombin Time Ratio 1.4 INR International Normalized Ratio 1.41 Test 12/13/16 12:20 Bedside Glucose 92 Medications Current Medications Sertraline HCl (Zoloft) 100 mg DAILY PO Last administered on 12/13/16 09:56; Admin Dose 100 MG; Start 12/07/16 at 09:00 Amlodipine Besylate (Norvasc) 5 mg BID PO Last administered on 12/13/16 09:58; Admin Dose 5 MG; Start 12/06/16 at 21:00 Losartan Potassium (Cozaar) 50 mg BID PO Last administered on 12/13/16 09:57; Admin Dose 50 MG; Start 12/06/16 at 21:00 Atorvastatin Calcium (Lipitor) 80 mg DAILY@21 PO Last administered on 12/12/16 20:16; Admin Dose 80 MG; Start 12/06/16 at 21:00 Polyethylene Glycol (Miralax) 17 gm DAILY PO Last administered on 12/13/16 09: 00; Admin Dose 17 GM; Start 12/07/16 at 09:00 Docusate Sodium (Colace) 100 mg BID PO Last administered on 12/13/16 09:56; Admin Dose 100 MG; Start 12/06/16 at 21:00 Metoprolol Tartrate (Lopressor) 100 mg BID PO Last administered on 12/13/16 09: 58; Admin Dose 100 MG; Start 12/06/16 at 21:00 Vitamin B Complex/ Vitamin C (Berocca) 1 cap BID PO Last administered on 09:56; Admin Dose 1 CAP; Start 12/06/16 at 21:00 Cholecalciferol (Vitamin D) 400 units DAILY PO Last administered on 12/13/16 09 :56; Admin Dose 400 UNITS; Start 12/07/16 at 09:00 Pantoprazole (Protonix Tab) 40 mg DAILY@06 PO Last administered on 12/13/16 06: 20; Admin Dose 40 MG; Start 12/07/16 at 06:00 Gabapentin (Neurontin) 400 mg Q8 PO Last administered on 12/13/16 06:20; Admin Dose 400 MG; Start 12/06/16 at 22:00 Hydralazine HCl (Apresoline) 50 mg TID PO Last administered on 12/13/16 09:58; Admin Dose 50 MG; Start 12/06/16 at 21:00 Methocarbamol (Robaxin) 500 mg TID PRN PO MUSCLE SPASMS Last administered on 10:36; Admin Dose 500 MG; Start 12/06/16 at 17:00 Diphenhydramine HCl (Benadryl) 25 mg Q6H PRN PO ITCHING Last administered on 10:33; Admin Dose 25 MG; Start 12/06/16 at 15:30 Miscellaneous Information 1 ea NOTE XX ; Start 12/06/16 at 16:00 Glucose (Glutose) 15 gm Q15M PRN PO DECREASED GLUCOSE; Start 12/06/16 at 16:00 Glucose (Glutose) 22.5 gm Q15M PRN PO DECREASED GLUCOSE; Start 12/06/16 at 16: 00 Dextrose (D50w Syringe) 25 ml Q15M PRN IV DECREASED GLUCOSE; Start 12/06/16 at 16:00 Dextrose (D50w Syringe) 50 ml Q15M PRN IV DECREASED GLUCOSE; Start 12/06/16 at 16:00 Glucagon (Glucagen) 1 mg Q15M PRN IM DECREASED GLUCOSE; Start 12/06/16 at 16:00 Glucose (Glutose) 15 gm Q15M PRN BUCCAL DECREASED GLUCOSE; Start 12/06/16 at 16 :00 Senna (Senokot) 1 tab HS PO Last administered on 12/12/16 20:16; Admin Dose 1 TAB; Start 12/06/16 at 21:00 Acetaminophen (Tylenol Tab) 650 mg Q4H PRN PO PAIN; Start 12/06/16 at 17:00 Magnesium Hydroxide (Milk Of Mag) 30 ml BID PRN PO CONSTIPATION; Start at 17:00 Lactulose (Enulose) 20 gm DAILY PRN PO CONSTIPATION; Start 12/06/16 at 17:00 Oxycodone HCl (Oxycontin) 10 mg Q8 PO Last administered on 12/13/16 06:20; Admin Dose 10 MG; Start 12/07/16 at 11:30 Bisacodyl (Dulcolax Supp) 10 mg DAILY [place] ; Start 12/08/16 at 09:00 Mupirocin 1 applic 1 applic BID TOP Last administered on 12/13/16 09:00; Admin Dose 1 APPLIC; Start 12/07/16 at 21:00; Stop 12/14/16 at 20:59 Ferric Sodium Gluconate Complex/ Sodium Chloride (Ferrlecit/NS) 110 ml @ 110 mls/hr Q24H IVPB Last administered on 12/12/16 20:09; Admin Dose 110 MLS/HR; Start 12/11/16 at 21:00; Stop 12/15/16 at 21:59 Phenazopyridine HCl 100 mg 100 mg TID PO Last administered on 12/13/16 09:56; Admin Dose 100 MG; Start 12/12/16 at 21:00 Caspofungin/ Sodium Chloride (Cancidas/NS) 250 ml @ 250 mls/hr Q24H IVPB ; Start 12/13/16 at 17:00 Hydromorphone HCl (Dilaudid) 0.5 mg Q3H PRN IV PAIN Last administered on 12/13/16 12:26; Admin Dose 0.5 MG; Start 12/13/16 at 11:10 Warfarin Sodium (Coumadin) 10 mg DAILY@17 PO ; Start 12/13/16 at 17:00 Assessment/Plan Chief Complaint/Hosp Course 1. History of P-atrial fibrillation. Currently in NSR 2. History of CVA 3. Hypertension. 4. Renal failure, on dialysis. 5. History of dyslipidemia. 6. History of multiple infections. 7. Discitis. 8. Severe anemia. 9. History of deep vein thrombosis. 10. hyper K: to be corrected by HD. Adjust coumadin to goal INR 2-3. coumadin 10 mg today and will check INR. ECHO shows normal EF AND LA size. cont betablocker. HD as per renal will check daily PT/INR and adjust coumadin dosing. Cont PT THANK YOU Problems: TAMERA BAILEY MD Dec 13, 2016 12:40
--- NOTE | 2016-12-13 13:17 | CONS ---
Date/Time of Note Date/Time of Note DATE: 12/13/16 TIME: 13:16 Assessment/Plan Assessment/Plan Chief Complaint/Hosp Course 1. End-stage renal disease. The patient on dialysis Wednesday, Wednesday, Wednesday. Plan for dialysis today. 2. Anemia. Hemoglobin levels are low, but stable. We will check an iron panel. Continue Epogen following dialysis. 3. Mineral bone disorder. Monitor calcium and phosphorus levels. 4. Hypertension. Continue current blood pressure regimen. 5. History of osteomyelitis, status post laminectomy. The patient is status post antibiotic course. Appreciate infectious disease evaluation. 6. Mild leukocytosis - start po abx for uti 7. C7 paraplegia. Continue physical therapy, occupational therapy. 8. History of deep venous thrombosis. Continue Coumadin. INR is approaching goal. 9. Paroxysmal atrial fibrillation, currently in sinus rhythm. Continue Coumadin. Follow up with Cardiology. 10. Diabetes. Continue Accu-Cheks and insulin sliding scale. 11. Anxiety/depression. Continue medical management. 12. History of chronic obstructive pulmonary disease. 13. Encephalopathy, improved. 14. History of cerebrovascular accident. Problems: Consultation Date/Type/Reason Admit Date/Time Dec 06, 2016 at 10:56 Initial Consult Date 12/10/16 Type of Consultation: nephrology 24 HR Interval Summary Free Text/Dictation all noted no new c/o. d/w rn Exam/Review of Systems Vital Signs Vitals Vital Signs Date Time Temp Pulse Resp B/P Pulse Ox O2 Delivery O2 Flow Rate FiO2 12/13/16 10:57 72 18 98 Nasal Cannula 2.0 12/13/16 03:25 98.5 142/63 12/11/16 21:13 21 Intake and Output 12/12/16 12/12/16 12/13/16 15:00 23:00 07:00 Intake Total 800 ml 1200 ml Balance 800 ml 1200 ml Exam Exam Constitutional: alert Psych: nl mood/affect, no complaints Head: atraumatic, normocephalic Eyes: EOMI, PERRL, nl conjunctiva, nl lids, nl sclera ENMT: nl external ears & nose, nl lips & teeth, nl nasal mucosa & septum Neck: non-tender, supple Respiratory: clear to auscultation, normal air movement Cardiovascular: nl pulses, regular rate and rhythm Gastrointestinal: nl liver, spleen, non-tender, soft Genitourinary - Female: No CMT, No CVA tenderness, No nl adnexae, No nl external genitalia, No other, No uterus Extremities: normal pulses 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: 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[employer] 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 intact, nl mental status, nl speech, nl strength Results Result Diagram: 12/12/16 0629 12/11/16 0643 Results 24 hrs Laboratory Tests Test 12/12/16 16:57 12/12/16 20:21 12/13/16 06:18 12/13/16 08:04 Bedside Glucose 136 142 97 Prothrombin Time 17.3 H Prothrombin Time Ratio 1.4 INR International Normalized Ratio 1.41 Test 12/13/16 12:20 Bedside Glucose 92 Medications Medications Current Medications Sertraline HCl (Zoloft) 100 mg DAILY PO Last administered on 12/13/16 09:56; Admin Dose 100 MG; Start 12/07/16 at 09:00 Amlodipine Besylate (Norvasc) 5 mg BID PO Last administered on 12/13/16 09:58; Admin Dose 5 MG; Start 12/06/16 at 21:00 Losartan Potassium (Cozaar) 50 mg BID PO Last administered on 12/13/16 09:57; Admin Dose 50 MG; Start 12/06/16 at 21:00 Atorvastatin Calcium (Lipitor) 80 mg DAILY@21 PO Last administered on 12/12/16 20:16; Admin Dose 80 MG; Start 12/06/16 at 21:00 Polyethylene Glycol (Miralax) 17 gm DAILY PO Last administered on 12/13/16 09: 00; Admin Dose 17 GM; Start 12/07/16 at 09:00 Docusate Sodium (Colace) 100 mg BID PO Last administered on 12/13/16 09:56; Admin Dose 100 MG; Start 12/06/16 at 21:00 Metoprolol Tartrate (Lopressor) 100 mg BID PO Last administered on 12/13/16 09: 58; Admin Dose 100 MG; Start 12/06/16 at 21:00 Vitamin B Complex/ Vitamin C (Berocca) 1 cap BID PO Last administered on 09:56; Admin Dose 1 CAP; Start 12/06/16 at 21:00 Cholecalciferol (Vitamin D) 400 units DAILY PO Last administered on 12/13/16 09 :56; Admin Dose 400 UNITS; Start 12/07/16 at 09:00 Pantoprazole (Protonix Tab) 40 mg DAILY@06 PO Last administered on 12/13/16 06: 20; Admin Dose 40 MG; Start 12/07/16 at 06:00 Gabapentin (Neurontin) 400 mg Q8 PO Last administered on 12/13/16 06:20; Admin Dose 400 MG; Start 12/06/16 at 22:00 Hydralazine HCl (Apresoline) 50 mg TID PO Last administered on 12/13/16 09:58; Admin Dose 50 MG; Start 12/06/16 at 21:00 Methocarbamol (Robaxin) 500 mg TID PRN PO MUSCLE SPASMS Last administered on 10:36; Admin Dose 500 MG; Start 12/06/16 at 17:00 Diphenhydramine HCl (Benadryl) 25 mg Q6H PRN PO ITCHING Last administered on 10:33; Admin Dose 25 MG; Start 12/06/16 at 15:30 Miscellaneous Information 1 ea NOTE XX ; Start 12/06/16 at 16:00 Glucose (Glutose) 15 gm Q15M PRN PO DECREASED GLUCOSE; Start 12/06/16 at 16:00 Glucose (Glutose) 22.5 gm Q15M PRN PO DECREASED GLUCOSE; Start 12/06/16 at 16: 00 Dextrose (D50w Syringe) 25 ml Q15M PRN IV DECREASED GLUCOSE; Start 12/06/16 at 16:00 Dextrose (D50w Syringe) 50 ml Q15M PRN IV DECREASED GLUCOSE; Start 12/06/16 at 16:00 Glucagon (Glucagen) 1 mg Q15M PRN IM DECREASED GLUCOSE; Start 12/06/16 at 16:00 Glucose (Glutose) 15 gm Q15M PRN BUCCAL DECREASED GLUCOSE; Start 12/06/16 at 16 :00 Senna (Senokot) 1 tab HS PO Last administered on 12/12/16 20:16; Admin Dose 1 TAB; Start 12/06/16 at 21:00 Acetaminophen (Tylenol Tab) 650 mg Q4H PRN PO PAIN; Start 12/06/16 at 17:00 Magnesium Hydroxide (Milk Of Mag) 30 ml BID PRN PO CONSTIPATION; Start at 17:00 Lactulose (Enulose) 20 gm DAILY PRN PO CONSTIPATION; Start 12/06/16 at 17:00 Oxycodone HCl (Oxycontin) 10 mg Q8 PO Last administered on 12/13/16 06:20; Admin Dose 10 MG; Start 12/07/16 at 11:30 Bisacodyl (Dulcolax Supp) 10 mg DAILY [place] ; Start 12/08/16 at 09:00 Mupirocin 1 applic 1 applic BID TOP Last administered on 12/13/16 09:00; Admin Dose 1 APPLIC; Start 12/07/16 at 21:00; Stop 12/14/16 at 20:59 Ferric Sodium Gluconate Complex/ Sodium Chloride (Ferrlecit/NS) 110 ml @ 110 mls/hr Q24H IVPB Last administered on 12/12/16 20:09; Admin Dose 110 MLS/HR; Start 12/11/16 at 21:00; Stop 12/15/16 at 21:59 Phenazopyridine HCl 100 mg 100 mg TID PO Last administered on 12/13/16 09:56; Admin Dose 100 MG; Start 12/12/16 at 21:00 Caspofungin/ Sodium Chloride (Cancidas/NS) 250 ml @ 250 mls/hr Q24H IVPB ; Start 12/13/16 at 17:00 Hydromorphone HCl (Dilaudid) 0.5 mg Q3H PRN IV PAIN Last administered on 12/13/16 12:26; Admin Dose 0.5 MG; Start 12/13/16 at 11:10 Warfarin Sodium (Coumadin) 10 mg DAILY@17 PO ; Start 12/13/16 at 17:00 AMBREEN BAUGH MD Dec 13, 2016 13:17
[2016-12-13] MEDS: WARFARIN 10 MG TAB PO SCH (17:49)
--- NOTE | 2016-12-13 18:04 | CONS ---
Date/Time of Note Date/Time of Note DATE: 12/13/16 TIME: 17:57 Assessment/Plan Assessment/Plan Chief Complaint/Hosp Course ID PROGRESS NOTE CURRENT ABX: Cancidas #3 + s/p Fosfomycin 3gm PO x1 8/5 DC Keflex 8/6 24H INTERVAL SUMMARY * No fevers, "Im feeling ok", awake, alert, trach, right SC HD/Pigtail venous access DSG C/D/I * Per nurse -- patient w/intractable back pain persisting -- impairing her participation in physical rehab. * 12/11/17 UA (+) <10,000 GNR + <10,000 Yeast => she has been treated for GNR w/ Fosfomycin x1 8/5 + Cancidas for yeast * 12/11 Urine Cx URINE CULTURE Preliminary Organism 1 JAMILAH ALBICANS COLONY COUNT <10,000 CFU/ml Organism 2 GRAM NEGATIVE LUZ MARIA COLONY COUNT <10,000 CFU/ml ID ASSESSMENT 51 yo F w/PMHx HTN, HLD, CAD, Afib, CVA, DVT, Psych Dx: Anxiety/Depression admit to [facility]-Rehab with: 1. T7 incomplete paraplegia due to epidural abscess/osteomyelitis-status post thoracic laminectomy, drainage of abscess, with impaired mobility and ADLs. * Patient has completed full course of ABX for osteomyelitis, per Dr. Samaniego note = continue to monitor OFF ABX * Back pain persisting 2. SIRS w/leukocytosis == Non-specific reactive, possible early UTI * URINE Cx 12/11 (+) Funguria == Possible early UTI * URINE CULTURE Preliminary Organism 1 JAMILAH ALBICANS COLONY COUNT <10,000 CFU/ml 3. Status post respiratory failure. 4. COPD 5. Toxic metabolic encephalopathy w/impairments in short term memory/ ? Dysphagia = Aspiration pneumonitis risk 6. Diabetes Mellitus type 2 7. ESRD on hemodialysis per nephrology. 8. Back pain (-)MRSA Nares INVASIVES: [facility] HD cath w/Venous pigtail CURRENT ABX: Cancidas #3 + s/p Fosfomycin 3gm PO x1 8/5 DC Keflex 8/6 ID RECOMMENDATIONS 1. 12/11/17 UA (+) <10,000 GNR + <10,000 Yeast => she has been treated for GNR w/ Fosfomycin x1 8/5 + Cancidas for yeast 2. Avoid systemic ABX --. Per Dr. Samaniego recs: Has completed adequate course of ABX for osteomyelitis, observe off ABX 3. Intractable back pain persisting * -- I called Dr Samaniego and reviewed the case he recommended MRI thoracic spine w & w/o contrast. . Problems: Consultation Date/Type/Reason Admit Date/Time Dec 06, 2016 at 10:56 Initial Consult Date 12/10/16 Type of Consultation: ID Exam/Review of Systems Vital Signs Vitals Vital Signs Date Time Temp Pulse Resp B/P Pulse Ox O2 Delivery O2 Flow Rate FiO2 12/13/16 10:57 72 18 98 Nasal Cannula 2.0 12/13/16 03:25 98.5 142/63 12/11/16 21:13 21 Intake and Output 12/12/16 12/12/16 12/13/16 15:00 23:00 07:00 Intake Total 800 ml 1200 ml Balance 800 ml 1200 ml Results Result Diagram: 12/12/16 0629 12/11/16 0643 Results 24 hrs Laboratory Tests Test 12/12/16 20:21 12/13/16 06:18 12/13/16 08:04 12/13/16 12:20 Bedside Glucose 142 97 92 Prothrombin Time 17.3 H Prothrombin Time Ratio 1.4 INR International Normalized Ratio 1.41 Test 12/13/16 17:40 Bedside Glucose 84 Medications Medications Current Medications Sertraline HCl (Zoloft) 100 mg DAILY PO Last administered on 12/13/16 09:56; Admin Dose 100 MG; Start 12/07/16 at 09:00 Amlodipine Besylate (Norvasc) 5 mg BID PO Last administered on 12/13/16 09:58; Admin Dose 5 MG; Start 12/06/16 at 21:00 Losartan Potassium (Cozaar) 50 mg BID PO Last administered on 12/13/16 09:57; Admin Dose 50 MG; Start 12/06/16 at 21:00 Atorvastatin Calcium (Lipitor) 80 mg DAILY@21 PO Last administered on 12/12/16 20:16; Admin Dose 80 MG; Start 12/06/16 at 21:00 Polyethylene Glycol (Miralax) 17 gm DAILY PO Last administered on 12/13/16 09: 00; Admin Dose 17 GM; Start 12/07/16 at 09:00 Docusate Sodium (Colace) 100 mg BID PO Last administered on 12/13/16 09:56; Admin Dose 100 MG; Start 12/06/16 at 21:00 Metoprolol Tartrate (Lopressor) 100 mg BID PO Last administered on 12/13/16 09: 58; Admin Dose 100 MG; Start 12/06/16 at 21:00 Vitamin B Complex/ Vitamin C (Berocca) 1 cap BID PO Last administered on 09:56; Admin Dose 1 CAP; Start 12/06/16 at 21:00 Cholecalciferol (Vitamin D) 400 units DAILY PO Last administered on 12/13/16 09 :56; Admin Dose 400 UNITS; Start 12/07/16 at 09:00 Pantoprazole (Protonix Tab) 40 mg DAILY@06 PO Last administered on 12/13/16 06: 20; Admin Dose 40 MG; Start 12/07/16 at 06:00 Gabapentin (Neurontin) 400 mg Q8 PO Last administered on 12/13/16 13:37; Admin Dose 400 MG; Start 12/06/16 at 22:00 Hydralazine HCl (Apresoline) 50 mg TID PO Last administered on 12/13/16 13:39; Admin Dose 50 MG; Start 12/06/16 at 21:00 Methocarbamol (Robaxin) 500 mg TID PRN PO MUSCLE SPASMS Last administered on 10:36; Admin Dose 500 MG; Start 12/06/16 at 17:00 Diphenhydramine HCl (Benadryl) 25 mg Q6H PRN PO ITCHING Last administered on 10:33; Admin Dose 25 MG; Start 12/06/16 at 15:30 Miscellaneous Information 1 ea NOTE XX ; Start 12/06/16 at 16:00 Glucose (Glutose) 15 gm Q15M PRN PO DECREASED GLUCOSE; Start 12/06/16 at 16:00 Glucose (Glutose) 22.5 gm Q15M PRN PO DECREASED GLUCOSE; Start 12/06/16 at 16: 00 Dextrose (D50w Syringe) 25 ml Q15M PRN IV DECREASED GLUCOSE; Start 12/06/16 at 16:00 Dextrose (D50w Syringe) 50 ml Q15M PRN IV DECREASED GLUCOSE; Start 12/06/16 at 16:00 Glucagon (Glucagen) 1 mg Q15M PRN IM DECREASED GLUCOSE; Start 12/06/16 at 16:00 Glucose (Glutose) 15 gm Q15M PRN BUCCAL DECREASED GLUCOSE; Start 12/06/16 at 16 :00 Acetaminophen (Tylenol Tab) 650 mg Q4H PRN PO PAIN; Start 12/06/16 at 17:00 Magnesium Hydroxide (Milk Of Mag) 30 ml BID PRN PO CONSTIPATION; Start at 17:00 Lactulose (Enulose) 20 gm DAILY PRN PO CONSTIPATION; Start 12/06/16 at 17:00 Oxycodone HCl (Oxycontin) 10 mg Q8 PO Last administered on 12/13/16 13:38; Admin Dose 10 MG; Start 12/07/16 at 11:30 Bisacodyl (Dulcolax Supp) 10 mg DAILY [place] ; Start 12/08/16 at 09:00 Mupirocin 1 applic 1 applic BID TOP Last administered on 12/13/16 09:00; Admin Dose 1 APPLIC; Start 12/07/16 at 21:00; Stop 12/14/16 at 20:59 Ferric Sodium Gluconate Complex/ Sodium Chloride (Ferrlecit/NS) 110 ml @ 110 mls/hr Q24H IVPB Last administered on 12/12/16 20:09; Admin Dose 110 MLS/HR; Start 12/11/16 at 21:00; Stop 12/15/16 at 21:59 Phenazopyridine HCl 100 mg 100 mg TID PO Last administered on 12/13/16 13:38; Admin Dose 100 MG; Start 12/12/16 at 21:00 Caspofungin/ Sodium Chloride (Cancidas/NS) 250 ml @ 250 mls/hr Q24H IVPB ; Start 12/13/16 at 17:00 Hydromorphone HCl (Dilaudid) 0.5 mg Q3H PRN IV PAIN -02/16 Last administered on 12/13/16 15:48; Admin Dose 0.5 MG; Start 12/13/16 at 11:10 Warfarin Sodium (Coumadin) 10 mg DAILY@17 PO Last administered on 12/13/16 17: 49; Admin Dose 10 MG; Start 8/6/17 at 17:00 Senna (Senokot) 2 tab HS PO ; Start 12/13/16 at 21:00 ILIANA SALDANA NP Dec 13, 2016 18:04
[2016-12-13] MEDS: CASPOFUNGIN 50 MG in SOD CHLORIDE 0.9% 250 ML IVPB SCH (18:14)
[2016-12-13 20:00] VITALS: BP 135/69; RESP 20
[2016-12-13] MEDS: SENNA TAB PO SCH (20:58)
[2016-12-13] MEDS: ATORVASTATIN 80 MG TAB PO SCH (20:58)
[2016-12-13] MEDS: SOD FERRIC GLUC COMPLX 125 MG in SOD CHLORIDE 0.9% 100 ML IVPB SCH (20:58)
[2016-12-14] VITALS (15 sets, daily range): BP systolic 125–168; BP diastolic 58–88; PULSE 71–88; RESP 17–20
[2016-12-14] MEDS: GABAPENTIN 400 MG CAP PO SCH ×3 (05:47→22:15)
[2016-12-14] MEDS: oxyCODONE (CR) 10 MG TAB [oxyCONTIN] PO SCH ×3 (05:47→22:16)
[2016-12-14] MEDS: PANTOPRAZOLE (EC) 40 MG TAB PO SCH (05:47)
[2016-12-14] MEDS: Insulin ASPART slide scale (Novolog) SC SCH ×4 (07:05→21:00)
[2016-12-14 07:40] LABS: BASOPHIL # 0.1 10^3/ul (0.0-0.1); BASOPHILS % 0.5 % (0.0-2.0); EOSINOPHILS # 0.7 10^3/ul (0.0-0.5); EOSINOPHILS % 6.5 % (0.0-7.0); HEMATOCRIT 29.3 % (37.0-47.0); HEMOGLOBIN 8.7 g/dl (12.0-16.0); LYMPHOCYTES # 2.1 10^3/ul (0.8-2.9); LYMPHOCYTES % 18.8 % (15.0-51.0); MEAN CORPUSCULAR HEMOGLOBIN 29.4 pg (29.0-33.0); MEAN CORPUSCULAR HGB CONC 29.7 g/dl (32.0-37.0); MEAN PLATELET VOLUME 8.2 fl (7.4-10.4); MONOCYTE # 0.8 10^3/ul (0.3-0.9); MONOCYTES % 6.9 % (0.0-11.0); NEUTROPHIL # 7.4 10^3/ul (1.6-7.5); NEUTROPHILS % 66.7 % (39.0-77.0); PLATELET COUNT 431 10^3/UL (140-415); RED BLOOD COUNT 2.96 10^6/ul (4.20-5.40); RED CELL DISTRIBUTION WIDTH 16.1 % (11.5-14.5); WHITE BLOOD COUNT 11.1 10^3/ul (4.8-10.8)
[2016-12-14] MEDS: HYDROmorphONE 1 MG/ML SYG IV PRN ×5 (07:47→19:33)
[2016-12-14] MEDS: SEVELAMER 800 MG TAB PO SCH ×3 (07:48→18:44)
[2016-12-14 07:49] LABS: INR 1.76; PROTIME 20.7 Sec (12.2-14.2); PT RATIO 1.6
[2016-12-14] MEDS: ALBUTEROL/IPRATROPIUM (NEB) 3 ML AMP HHN SCH ×3 (07:53→21:09)
[2016-12-14 08:00] LABS: ALBUMIN 2.9 g/dl (3.3-4.9); ALBUMIN/GLOBULIN RATIO 0.72; BILIRUBIN,INDIRECT 0.3 mg/dl (0-1.1); BILIRUBIN,TOTAL 0.3 mg/dl (0.2-1.3); CALCIUM 8.2 mg/dl (8.4-10.2); CREATININE 3.44 mg/dl (0.44-1.00); POTASSIUM 4.6 mmol/L (3.5-5.1); TOTAL PROTEIN 6.9 g/dl (6.1-8.1)
[2016-12-14] MEDS: METOPROLOL 100 MG TAB PO SCH ×2 (09:00→20:58)
[2016-12-14] MEDS: BISACODYL 10 MG SUPP PR SCH (09:00)
[2016-12-14] MEDS: LOSARTAN 50 MG TAB PO SCH ×2 (09:00→20:59)
[2016-12-14] MEDS: SERTRALINE 100 MG TAB PO SCH (09:00)
[2016-12-14] MEDS: AMLODIPINE 5 MG TAB PO SCH ×2 (09:00→20:57)
--- NOTE | 2016-12-14 10:51 | PN ---
DATE: 12/14/2016 SUBJECTIVE DATA: Patient is stable. No events overnight. The patient is scheduled for hemodialysis today. The patient is working well with physical therapy. OBJECTIVE DATA: VITAL SIGNS: Blood pressure is 135/69, respirations 20, pulse 73, temperature 97.8. HEENT: Head is normocephalic. NECK: Supple. HEART: Regular rate. LUNGS: Diminished breath sounds at the base. ABDOMEN: Soft, nontender to palpation. No rebound or guarding. EXTREMITIES: Negative for clubbing, cyanosis. No edema. DERMATOLOGIC: No rashes. MUSCULOSKELETAL: No joint effusion. NEUROLOGIC: No change in exam. The patient's medications have been reviewed. LABORATORY AND DIAGNOSTIC DATA: Sodium 141, potassium 4.6. BUN 44, creatinine 0.44. White count 9.1, hemoglobin 9.7, hematocrit 29.3; platelet count is 431. ASSESSMENT AND PLAN: 1. Endstage renal disease. The patient is scheduled for dialysis today. Will dialyze for 3 hours with 3K bath, calcium 2.5. 2. Anemia. Monitor hemoglobin and hematocrit levels. Continue IV iron. Continue Epogen. 3. Mineral bone disorder. Monitor calcium and phosphorus levels. 4. Hypertension. Continue current blood pressure regimen. 5. History of osteomyelitis, status post laminectomy. The patient has been seen by Infectious Disease. Recommend a repeat MRI of the back. Will follow up with their recommendation. 6. Mild leukocytosis. Continue to observe. 7. T7 paraplegia. Continue physical therapy. 8. History of deep venous thrombosis. Continue Coumadin. INR is near goal. 9. Paroxysmal atrial fibrillation, sinus rhythm. Continue current medical management. Continue Coumadin. 10. Diabetes. Continue Accu-Cheks and insulin sliding scale. 11. Anxiety, depression. Continue medical management. 12. History of chronic obstructive pulmonary disease. 13. Encephalopathy, improved. 14. History of cerebrovascular accident. Dictated By: Buck Seals DO /saul/briseyda /Document#: [id number]
[2016-12-14] MEDS: VITAMIN B COMPLEX/VIT C CAP PO SCH ×2 (12:13→20:55)
[2016-12-14] MEDS: PHENAZOPYRIDINE 100 MG TAB PO SCH ×3 (12:14→20:55)
[2016-12-14] MEDS: DOCUSATE SODIUM 100 MG CAP PO SCH ×2 (12:14→20:55)
[2016-12-14] MEDS: METHOCARBAMOL 500 MG TAB PO PRN (12:14)
[2016-12-14] MEDS: CHOLECALCIFEROL 400 UNITS TAB PO SCH (12:14)
[2016-12-14] MEDS: POLYETHYLENE GLYCOL 17 GM PACKET PO SCH (12:15)
[2016-12-14] MEDS: MUPIROCIN 2% 22 GM OINT TOP SCH (12:15)
--- NOTE | 2016-12-14 13:31 | CONS ---
Date/Time of Note Date/Time of Note DATE: 12/14/16 TIME: 13:31 Consult Date/Type/Reason Admit Date/Time Dec 06, 2016 at 10:56 Type of Consultation: ID Subjective Had assisted fall duringtherapy this morning. Was at edge of bed, and while attempting a transfer had knee pain. Was asssited gently to the floor. Pt denies head trauma or change in other extremity pain. She does still complain of knee pain. Objective Vital Signs Date Time Temp Pulse Resp B/P Pulse Ox O2 Delivery O2 Flow Rate FiO2 12/14/16 07:53 71 18 94 Nasal Cannula 2.0 12/14/16 07:30 98.1 126/64 12/13/16 19:08 21 Intake and Output 12/13/16 12/13/16 12/14/16 15:00 23:00 07:00 Intake Total 360 ml 280 ml Balance 360 ml 280 ml INTERDISCIPLINARY TEAM CONFERENCE BOWEL- Cont/incont [id number] SKIN- incision clean OT- DRESSING-min/mod BATHING-min/mod TOILETING-max PT- BED MOBILITY-max TRANSFERS-max AMBULATION-max 2 feet W.C. MOBILITY-min 40 feet SPEECH- COGNITION-min A/P- Interdisciplinary team conference held today. Please see interdisciplinary sheet. Working toward d.c. on 12/26 with post discharge follow up of physical therapy, occupational Results/Medications Result Diagram: 12/14/16 0650 12/14/16 0650 Results 24 hrs Laboratory Tests Test 12/13/16 17:40 12/13/16 20:23 12/14/16 06:50 12/14/16 07:49 Bedside Glucose 84 110 88 White Blood Count 11.1 H Red Blood Count 2.96 L Hemoglobin 8.7 L Hematocrit 29.3 L Mean Corpuscular Volume 99.0 Mean Corpuscular Hemoglobin 29.4 Mean Corpuscular Hemoglobin Concent 29.7 L Red Cell Distribution Width 16.1 H Platelet Count 431 #H Mean Platelet Volume 8.2 Neutrophils % 66.7 Lymphocytes % 18.8 Monocytes % 6.9 Eosinophils % 6.5 Basophils % 0.5 Nucleated Red Blood Cells % 0.0 Neutrophils # 7.4 Lymphocytes # 2.1 Monocytes # 0.8 Eosinophils # 0.7 H Basophils # 0.1 Nucleated Red Blood Cells # 0.0 Prothrombin Time 20.7 H Prothrombin Time Ratio 1.6 INR International Normalized Ratio 1.76 Sodium Level 141 Potassium Level 4.6 Chloride Level 103 Carbon Dioxide Level 23 Anion Gap 20 H Blood Urea Nitrogen 44 H Creatinine 3.44 H Glucose Level 71 Calcium Level 8.2 L Total Bilirubin 0.3 Direct Bilirubin 0.00 Indirect Bilirubin 0.3 Aspartate Amino Transf (AST/SGOT) 23 Alanine Aminotransferase (ALT/SGPT) 26 Alkaline Phosphatase 197 H Total Protein 6.9 Albumin 2.9 L Globulin 4.00 H Albumin/Globulin Ratio 0.72 Test 12/14/16 12:05 Bedside Glucose 97 Medications Current Medications Sertraline HCl (Zoloft) 100 mg DAILY PO Last administered on 12/13/16 09:56; Admin Dose 100 MG; Start 12/07/16 at 09:00 Amlodipine Besylate (Norvasc) 5 mg BID PO Last administered on 12/13/16 20:59; Admin Dose 5 MG; Start 12/06/16 at 21:00 Losartan Potassium (Cozaar) 50 mg BID PO Last administered on 12/13/16 20:59; Admin Dose 50 MG; Start 12/06/16 at 21:00 Atorvastatin Calcium (Lipitor) 80 mg DAILY@21 PO Last administered on 12/13/16 20:58; Admin Dose 80 MG; Start 12/06/16 at 21:00 Polyethylene Glycol (Miralax) 17 gm DAILY PO Last administered on 12/14/16 12: 15; Admin Dose 17 GM; Start 12/07/16 at 09:00 Docusate Sodium (Colace) 100 mg BID PO Last administered on 12/14/16 12:14; Admin Dose 100 MG; Start 12/06/16 at 21:00 Metoprolol Tartrate (Lopressor) 100 mg BID PO Last administered on 12/13/16 20: 59; Admin Dose 100 MG; Start 12/06/16 at 21:00 Vitamin B Complex/ Vitamin C (Berocca) 1 cap BID PO Last administered on 12:13; Admin Dose 1 CAP; Start 12/06/16 at 21:00 Cholecalciferol (Vitamin D) 400 units DAILY PO Last administered on 12/14/16 12 :14; Admin Dose 400 UNITS; Start 12/07/16 at 09:00 Pantoprazole (Protonix Tab) 40 mg DAILY@06 PO Last administered on 12/14/16 05: 47; Admin Dose 40 MG; Start 12/07/16 at 06:00 Gabapentin (Neurontin) 400 mg Q8 PO Last administered on 12/14/16 05:47; Admin Dose 400 MG; Start 12/06/16 at 22:00 Hydralazine HCl (Apresoline) 50 mg TID PO Last administered on 12/13/16 20:59; Admin Dose 50 MG; Start 12/06/16 at 21:00 Methocarbamol (Robaxin) 500 mg TID PRN PO MUSCLE SPASMS Last administered on 12:14; Admin Dose 500 MG; Start 12/06/16 at 17:00 Diphenhydramine HCl (Benadryl) 25 mg Q6H PRN PO ITCHING Last administered on 10:33; Admin Dose 25 MG; Start 12/06/16 at 15:30 Miscellaneous Information 1 ea NOTE XX ; Start 12/06/16 at 16:00 Glucose (Glutose) 15 gm Q15M PRN PO DECREASED GLUCOSE; Start 12/06/16 at 16:00 Glucose (Glutose) 22.5 gm Q15M PRN PO DECREASED GLUCOSE; Start 12/06/16 at 16: 00 Dextrose (D50w Syringe) 25 ml Q15M PRN IV DECREASED GLUCOSE; Start 12/06/16 at 16:00 Dextrose (D50w Syringe) 50 ml Q15M PRN IV DECREASED GLUCOSE; Start 12/06/16 at 16:00 Glucagon (Glucagen) 1 mg Q15M PRN IM DECREASED GLUCOSE; Start 12/06/16 at 16:00 Glucose (Glutose) 15 gm Q15M PRN BUCCAL DECREASED GLUCOSE; Start 12/06/16 at 16 :00 Acetaminophen (Tylenol Tab) 650 mg Q4H PRN PO PAIN; Start 12/06/16 at 17:00 Magnesium Hydroxide (Milk Of Mag) 30 ml BID PRN PO CONSTIPATION; Start at 17:00 Lactulose (Enulose) 20 gm DAILY PRN PO CONSTIPATION; Start 12/06/16 at 17:00 Oxycodone HCl (Oxycontin) 10 mg Q8 PO Last administered on 12/14/16 05:47; Admin Dose 10 MG; Start 12/07/16 at 11:30 Bisacodyl (Dulcolax Supp) 10 mg DAILY [place] ; Start 12/08/16 at 09:00 Mupirocin 1 applic 1 applic BID TOP Last administered on 12/14/16 12:15; Admin Dose 1 APPLIC; Start 12/07/16 at 21:00; Stop 12/14/16 at 20:59 Ferric Sodium Gluconate Complex/ Sodium Chloride (Ferrlecit/NS) 110 ml @ 110 mls/hr Q24H IVPB Last administered on 12/13/16 20:58; Admin Dose 110 MLS/HR; Start 12/11/16 at 21:00; Stop 12/15/16 at 21:59 Phenazopyridine HCl 100 mg 100 mg TID PO Last administered on 12/14/16 12:14; Admin Dose 100 MG; Start 12/12/16 at 21:00 Caspofungin/ Sodium Chloride (Cancidas/NS) 250 ml @ 250 mls/hr Q24H IVPB Last administered on 12/13/16 18:14; Admin Dose 250 MLS/HR; Start 12/13/16 at 17:00 Hydromorphone HCl (Dilaudid) 0.5 mg Q3H PRN IV PAIN Last administered on 12/14/16 10:55; Admin Dose 0.5 MG; Start 12/13/16 at 11:10 Warfarin Sodium (Coumadin) 10 mg DAILY@17 PO Last administered on 12/13/16 17: 49; Admin Dose 10 MG; Start 12/13/16 at 17:00 Senna (Senokot) 2 tab HS PO Last administered on 12/13/16 20:58; Admin Dose 2 TAB; Start 12/13/16 at 21:00 ALINE CORREIA MD Dec 14, 2016 13:31
--- NOTE | 2016-12-14 18:23 | CONS ---
Date/Time of Note Date/Time of Note DATE: 12/14/16 TIME: 18:22 Consult Date/Type/Reason Admit Date/Time Dec 06, 2016 at 10:56 Initial Consult Date 12/10/16 Type of Consultation: CARDIOLOGY Subjective CARDIOLOGY FOLLOW UP d/w staff pt still c/o left hip pain now. it is intermittent. no chest pain or pressure. no palpitations or bleeding she has fatigue no bleeding. s/p HD OBJECTIVE: General: no acute distress. Obese female. HEENT: NC/AT. pupils are equal. round. NECK: NO JVD. no stridor. CV: RRR. systolic murmur; no gallop or rubs. chest: s/p R HD access in place. PULM: no wheezing or rhonchi. GI: SOFT, NT, ND, no rebound or guarding. Obese Extremity: + B/L LE edema. no clubbing. neuro: awake and alert,. Psych: calm and pleasant rectal: deferred ECG 12/08/16: NSR. echo 12/08/16 reviewed: 1. Normal left ventricular systolic function. Normal left ventricular cavity size. Mild concentric left ventricular hypertrophy. Ejection fraction is visually estimated at 55 %. Abnormal Diastolic Function. 2. The left atrium is normal in size. 3. Mitral valve leaflets appear mildly thickened. Mild mitral annular calcification. Trace mitral regurgitation. 4. Normal appearance of the aortic valve. No significant aortic stenosis or insufficiency. 5. Normal appearance of the tricuspid valve. Estimated peak PA systolic pressure 42 mmHg. There is mild tricuspid regurgitation. 6. Normal size and normal respiratory collapse consistent with normal right atrial pressure. Objective Vital Signs Date Time Temp Pulse Resp B/P Pulse Ox O2 Delivery O2 Flow Rate FiO2 12/14/16 18:00 71 12/14/16 18:00 16 12/14/16 16:25 2.0 12/14/16 14:04 95 Nasal Cannula 12/14/16 07:30 98.1 126/64 12/13/16 19:08 21 Intake and Output 12/13/16 12/13/16 12/14/16 15:00 23:00 07:00 Intake Total 360 ml 280 ml Balance 360 ml 280 ml Results/Medications Result Diagram: 12/14/16 0650 12/14/16 0650 Results 24 hrs Laboratory Tests Test 12/13/16 20:23 12/14/16 06:50 12/14/16 07:49 12/14/16 12:05 Bedside Glucose 110 88 97 White Blood Count 11.1 H Red Blood Count 2.96 L Hemoglobin 8.7 L Hematocrit 29.3 L Mean Corpuscular Volume 99.0 Mean Corpuscular Hemoglobin 29.4 Mean Corpuscular Hemoglobin Concent 29.7 L Red Cell Distribution Width 16.1 H Platelet Count 431 #H Mean Platelet Volume 8.2 Neutrophils % 66.7 Lymphocytes % 18.8 Monocytes % 6.9 Eosinophils % 6.5 Basophils % 0.5 Nucleated Red Blood Cells % 0.0 Neutrophils # 7.4 Lymphocytes # 2.1 Monocytes # 0.8 Eosinophils # 0.7 H Basophils # 0.1 Nucleated Red Blood Cells # 0.0 Prothrombin Time 20.7 H Prothrombin Time Ratio 1.6 INR International Normalized Ratio 1.76 Sodium Level 141 Potassium Level 4.6 Chloride Level 103 Carbon Dioxide Level 23 Anion Gap 20 H Blood Urea Nitrogen 44 H Creatinine 3.44 H Glucose Level 71 Calcium Level 8.2 L Total Bilirubin 0.3 Direct Bilirubin 0.00 Indirect Bilirubin 0.3 Aspartate Amino Transf (AST/SGOT) 23 Alanine Aminotransferase (ALT/SGPT) 26 Alkaline Phosphatase 197 H Total Protein 6.9 Albumin 2.9 L Globulin 4.00 H Albumin/Globulin Ratio 0.72 Medications Current Medications Sertraline HCl (Zoloft) 100 mg DAILY PO Last administered on 12/14/16 09:00; Admin Dose 100 MG; Start 12/07/16 at 09:00 Amlodipine Besylate (Norvasc) 5 mg BID PO Last administered on 12/13/16 20:59; Admin Dose 5 MG; Start 12/06/16 at 21:00 Losartan Potassium (Cozaar) 50 mg BID PO Last administered on 12/13/16 20:59; Admin Dose 50 MG; Start 12/06/16 at 21:00 Atorvastatin Calcium (Lipitor) 80 mg DAILY@21 PO Last administered on 12/13/16 20:58; Admin Dose 80 MG; Start 12/06/16 at 21:00 Polyethylene Glycol (Miralax) 17 gm DAILY PO Last administered on 12/14/16 12: 15; Admin Dose 17 GM; Start 12/07/16 at 09:00 Docusate Sodium (Colace) 100 mg BID PO Last administered on 12/14/16 12:14; Admin Dose 100 MG; Start 12/06/16 at 21:00 Metoprolol Tartrate (Lopressor) 100 mg BID PO Last administered on 12/13/16 20: 59; Admin Dose 100 MG; Start 12/06/16 at 21:00 Vitamin B Complex/ Vitamin C (Berocca) 1 cap BID PO Last administered on 12:13; Admin Dose 1 CAP; Start 12/06/16 at 21:00 Cholecalciferol (Vitamin D) 400 units DAILY PO Last administered on 12/14/16 12 :14; Admin Dose 400 UNITS; Start 12/07/16 at 09:00 Pantoprazole (Protonix Tab) 40 mg DAILY@06 PO Last administered on 12/14/16 05: 47; Admin Dose 40 MG; Start 12/07/16 at 06:00 Gabapentin (Neurontin) 400 mg Q8 PO Last administered on 12/14/16 13:54; Admin Dose 400 MG; Start 12/06/16 at 22:00 Hydralazine HCl (Apresoline) 50 mg TID PO Last administered on 12/13/16 20:59; Admin Dose 50 MG; Start 12/06/16 at 21:00 Methocarbamol (Robaxin) 500 mg TID PRN PO MUSCLE SPASMS Last administered on 12:14; Admin Dose 500 MG; Start 12/06/16 at 17:00 Diphenhydramine HCl (Benadryl) 25 mg Q6H PRN PO ITCHING Last administered on 10:33; Admin Dose 25 MG; Start 12/06/16 at 15:30 Miscellaneous Information 1 ea NOTE XX ; Start 12/06/16 at 16:00 Glucose (Glutose) 15 gm Q15M PRN PO DECREASED GLUCOSE; Start 12/06/16 at 16:00 Glucose (Glutose) 22.5 gm Q15M PRN PO DECREASED GLUCOSE; Start 12/06/16 at 16: 00 Dextrose (D50w Syringe) 25 ml Q15M PRN IV DECREASED GLUCOSE; Start 12/06/16 at 16:00 Dextrose (D50w Syringe) 50 ml Q15M PRN IV DECREASED GLUCOSE; Start 12/06/16 at 16:00 Glucagon (Glucagen) 1 mg Q15M PRN IM DECREASED GLUCOSE; Start 12/06/16 at 16:00 Glucose (Glutose) 15 gm Q15M PRN BUCCAL DECREASED GLUCOSE; Start 12/06/16 at 16 :00 Acetaminophen (Tylenol Tab) 650 mg Q4H PRN PO PAIN; Start 12/06/16 at 17:00 Magnesium Hydroxide (Milk Of Mag) 30 ml BID PRN PO CONSTIPATION; Start at 17:00 Lactulose (Enulose) 20 gm DAILY PRN PO CONSTIPATION; Start 12/06/16 at 17:00 Oxycodone HCl (Oxycontin) 10 mg Q8 PO Last administered on 12/14/16 05:47; Admin Dose 10 MG; Start 12/07/16 at 11:30 Bisacodyl (Dulcolax Supp) 10 mg DAILY [place] ; Start 12/08/16 at 09:00 Mupirocin 1 applic 1 applic BID TOP Last administered on 12/14/16 12:15; Admin Dose 1 APPLIC; Start 12/07/16 at 21:00; Stop 12/14/16 at 20:59 Ferric Sodium Gluconate Complex/ Sodium Chloride (Ferrlecit/NS) 110 ml @ 110 mls/hr Q24H IVPB Last administered on 12/13/16 20:58; Admin Dose 110 MLS/HR; Start 12/11/16 at 21:00; Stop 12/15/16 at 21:59 Phenazopyridine HCl 100 mg 100 mg TID PO Last administered on 12/14/16 13:54; Admin Dose 100 MG; Start 12/12/16 at 21:00 Caspofungin/ Sodium Chloride (Cancidas/NS) 250 ml @ 250 mls/hr Q24H IVPB Last administered on 12/13/16 18:14; Admin Dose 250 MLS/HR; Start 12/13/16 at 17:00 Hydromorphone HCl (Dilaudid) 0.5 mg Q3H PRN IV PAIN -02/16 Last administered on 12/14/16 16:41; Admin Dose 0.5 MG; Start 12/13/16 at 11:10 Warfarin Sodium (Coumadin) 10 mg DAILY@17 PO Last administered on 12/13/16 17: 49; Admin Dose 10 MG; Start 12/13/16 at 17:00 Senna (Senokot) 2 tab HS PO Last administered on 12/13/16t 20:58; Admin Dose 2 TAB; Start 12/13/16 at 21:00 Assessment/Plan Chief Complaint/Hosp Course 1. History of P-atrial fibrillation. Currently in NSR 2. History of CVA 3. Hypertension. 4. Renal failure, on dialysis. 5. History of dyslipidemia. 6. History of multiple infections. 7. Discitis. 8. Severe anemia. 9. History of deep vein thrombosis. 10. hyper K: to be corrected by HD. Adjust coumadin to goal INR 2-3. coumadin 10 mg today and will check INR IN AM . ECHO shows normal EF AND LA size. cont betablocker. HD as per renal will check daily PT/INR and adjust coumadin dosing. Cont PT as tolerated. THANK YOU Problems: TAMERA BAILEY MD Dec 14, 2016 18:23
[2016-12-14] MEDS: CASPOFUNGIN 50 MG in SOD CHLORIDE 0.9% 250 ML IVPB SCH (18:39)
[2016-12-14] MEDS: WARFARIN 10 MG TAB PO SCH (19:44)
[2016-12-14] MEDS: SOD FERRIC GLUC COMPLX 125 MG in SOD CHLORIDE 0.9% 100 ML IVPB SCH (20:55)
[2016-12-14] MEDS: ATORVASTATIN 80 MG TAB PO SCH (20:58)
[2016-12-14] MEDS: SENNA TAB PO SCH (20:59)
--- NOTE | 2016-12-14 23:32 | RADRPT ---
PROCEDURE: XR Left Knee. CLINICAL INDICATION: Trauma due to a fall. Left knee pain. TECHNIQUE: Two views. Frontal and lateral. COMPARISON: No prior studies are available for comparison. FINDINGS: There is no fracture or dislocation. Vascular calcifications are present consistent with atherosclerosis. The articular surfaces are intact. There is no lytic or blastic lesion. There is no radiopaque foreign body. IMPRESSION: 1. Atherosclerosis. 2. Otherwise unremarkable images of the left knee. RPTAT: QQ .Nima Yang MD, Date Time Electronically viewed and signed by .Nima Yang MD, on 12/14/2016 23:32 .R/
[2016-12-15] MEDS: HYDROmorphONE 1 MG/ML SYG IV PRN ×5 (01:56→18:28)
[2016-12-15 02:00] VITALS: BP 143/65; RESP 18
[2016-12-15] MEDS: PANTOPRAZOLE (EC) 40 MG TAB PO SCH (05:58)
[2016-12-15] MEDS: GABAPENTIN 400 MG CAP PO SCH ×3 (05:58→22:12)
[2016-12-15] MEDS: oxyCODONE (CR) 10 MG TAB [oxyCONTIN] PO SCH ×3 (05:59→22:13)
[2016-12-15 06:49] LABS: INR 2.41; PROTIME 26.5 Sec (12.2-14.2); PT RATIO 2.1
[2016-12-15] MEDS: Insulin ASPART slide scale (Novolog) SC SCH ×4 (07:05→20:58)
[2016-12-15] MEDS: ALBUTEROL/IPRATROPIUM (NEB) 3 ML AMP HHN SCH ×3 (08:00→20:23)
[2016-12-15] MEDS: SEVELAMER 800 MG TAB PO SCH ×3 (08:05→18:29)
[2016-12-15] MEDS: EPOETIN 4000 UNITS/1 ML INJ (ESRD) SC SCH (08:05)
[2016-12-15 08:06] VITALS: BP 140/65; RESP 18
[2016-12-15] MEDS: AMLODIPINE 5 MG TAB PO SCH ×2 (09:00→20:58)
[2016-12-15] MEDS: METOPROLOL 100 MG TAB PO SCH ×2 (09:00→20:57)
[2016-12-15] MEDS: BISACODYL 10 MG SUPP PR SCH (09:00)
[2016-12-15] MEDS: LOSARTAN 50 MG TAB PO SCH ×2 (09:00→20:58)
--- NOTE | 2016-12-15 09:35 | PN ---
DATE: 12/15/2016 SUBJECTIVE DATA: The patient is stable. No events overnight. The patient had hemodialysis yesterday, tolerated well. OBJECTIVE DATA: VITAL SIGNS: Blood pressure 140/65, respirations 18, pulse 96, temperature 98.2. HEENT: Head is normocephalic. NECK: Supple. HEART: Regular rate. LUNGS: Show diminished breath sounds at the base. ABDOMEN: Soft, nontender to palpation. No rebound or guarding. EXTREMITIES: Negative for clubbing, cyanosis. No edema. DERMATOLOGIC: Clean. No rashes. MUSCULOSKELETAL: No joint effusion. NEUROLOGIC: No change in exam. MEDICATIONS: Reviewed. LABORATORY AND DIAGNOSTIC DATA: Reviewed. ASSESSMENT AND PLAN: 1. End-stage renal disease. The patient will be scheduled for dialysis tomorrow for 3 hours 3K bath, calcium 2.5. 2. Anemia. Monitor H and H levels. Continue Epogen. Continue intravenous iron. 3. Mineral bone disorder. Continue to monitor calcium and phosphorus levels. 4. Hypertension. Continue current blood pressure regimen. 5. History of osteomyelitis, status post laminectomy. The patient is being followed by Infectious Disease. We will monitor. 6. Mild leukocytosis. Continue to observe. 7. T7 paraplegia, incomplete, continue physical therapy. 8. History of deep venous thrombosis. Continue Coumadin. INR is near goal. 9. History of paroxysmal atrial fibrillation. Currently sinus rhythm. Continue current medical management. Follow up with Cardiology. 10. Diabetes. Continue Accu-Cheks and sliding scale. 11. Anxiety, depression. Continue medical management. 12. History of chronic obstructive pulmonary disease. 13. Encephalopathy, improved. 14. History of cerebrovascular accident. Continue medical management. 15. Gastrointestinal and deep venous thrombosis prophylaxis. Continue proton pump inhibitor and Coumadin. Dictated By: Buck Seals DO /saul/josee /Document#: [id number]
[2016-12-15] MEDS: METHOCARBAMOL 500 MG TAB PO PRN (10:30)
[2016-12-15] MEDS: VITAMIN B COMPLEX/VIT C CAP PO SCH ×2 (11:17→20:56)
[2016-12-15] MEDS: CHOLECALCIFEROL 400 UNITS TAB PO SCH (11:17)
[2016-12-15] MEDS: DOCUSATE SODIUM 100 MG CAP PO SCH ×2 (11:18→20:56)
[2016-12-15] MEDS: POLYETHYLENE GLYCOL 17 GM PACKET PO SCH (11:19)
[2016-12-15] MEDS: SERTRALINE 100 MG TAB PO SCH (11:19)
[2016-12-15] MEDS: PHENAZOPYRIDINE 100 MG TAB PO SCH ×3 (11:19→20:56)
--- NOTE | 2016-12-15 13:04 | CONS ---
Date/Time of Note Date/Time of Note DATE: 12/15/16 TIME: 13:04 Consult Date/Type/Reason Admit Date/Time Dec 06, 2016 at 10:56 Type of Consultation: CARDIOLOGY Subjective No new complaints Objective Lungs clear abdomen soft Moderate assist ambulation a few feet Vital Signs Date Time Temp Pulse Resp B/P Pulse Ox O2 Delivery O2 Flow Rate FiO2 12/15/16 08:06 98.2 76 18 140/65 94 12/15/16 08:00 Nasal Cannula 2.0 12/13/16 19:08 21 Intake and Output 12/14/16 12/14/16 12/15/16 15:00 23:00 07:00 Intake Total 2140 ml 240 ml Output Total 3600 ml Balance -1460 ml 240 ml Results/Medications Result Diagram: 12/14/16 0650 12/14/16 0650 Results 24 hrs Laboratory Tests Test 12/14/16 18:37 12/14/16 20:53 12/15/16 06:08 12/15/16 07:51 Bedside Glucose 113 122 92 Prothrombin Time 26.5 #H Prothrombin Time Ratio 2.1 INR International Normalized Ratio 2.41 Test 12/15/16 11:57 Bedside Glucose 102 Medications Current Medications Sertraline HCl (Zoloft) 100 mg DAILY PO Last administered on 12/15/16 11:19; Admin Dose 100 MG; Start 12/07/16 at 09:00 Amlodipine Besylate (Norvasc) 5 mg BID PO Last administered on 12/14/16 20:57; Admin Dose 5 MG; Start 12/06/16 at 21:00 Losartan Potassium (Cozaar) 50 mg BID PO Last administered on 12/14/16 20:59; Admin Dose 50 MG; Start 12/06/16 at 21:00 Atorvastatin Calcium (Lipitor) 80 mg DAILY@21 PO Last administered on 12/14/16 20:58; Admin Dose 80 MG; Start 12/06/16 at 21:00 Polyethylene Glycol (Miralax) 17 gm DAILY PO Last administered on 12/15/16 11: 19; Admin Dose 17 GM; Start 12/07/16 at 09:00 Docusate Sodium (Colace) 100 mg BID PO Last administered on 12/15/16 11:18; Admin Dose 100 MG; Start 12/06/16 at 21:00 Metoprolol Tartrate (Lopressor) 100 mg BID PO Last administered on 12/14/16 20: 58; Admin Dose 100 MG; Start 12/06/16 at 21:00 Vitamin B Complex/ Vitamin C (Berocca) 1 cap BID PO Last administered on 11:17; Admin Dose 1 CAP; Start 12/06/16 at 21:00 Cholecalciferol (Vitamin D) 400 units DAILY PO Last administered on 12/15/16 11 :17; Admin Dose 400 UNITS; Start 12/07/16 at 09:00 Pantoprazole (Protonix Tab) 40 mg DAILY@06 PO Last administered on 12/15/16 05: 58; Admin Dose 40 MG; Start 12/07/16 at 06:00 Gabapentin (Neurontin) 400 mg Q8 PO Last administered on 12/15/16 05:58; Admin Dose 400 MG; Start 12/06/16 at 22:00 Hydralazine HCl (Apresoline) 50 mg TID PO Last administered on 12/14/16 20:59; Admin Dose 50 MG; Start 12/06/16 at 21:00 Methocarbamol (Robaxin) 500 mg TID PRN PO MUSCLE SPASMS Last administered on 10:30; Admin Dose 500 MG; Start 12/06/16 at 17:00 Diphenhydramine HCl (Benadryl) 25 mg Q6H PRN PO ITCHING Last administered on 10:33; Admin Dose 25 MG; Start 12/06/16 at 15:30 Miscellaneous Information 1 ea NOTE XX ; Start 12/06/16 at 16:00 Glucose (Glutose) 15 gm Q15M PRN PO DECREASED GLUCOSE; Start 12/06/16 at 16:00 Glucose (Glutose) 22.5 gm Q15M PRN PO DECREASED GLUCOSE; Start 12/06/16 at 16: 00 Dextrose (D50w Syringe) 25 ml Q15M PRN IV DECREASED GLUCOSE; Start 12/06/16 at 16:00 Dextrose (D50w Syringe) 50 ml Q15M PRN IV DECREASED GLUCOSE; Start 12/06/16 at 16:00 Glucagon (Glucagen) 1 mg Q15M PRN IM DECREASED GLUCOSE; Start 12/06/16 at 16:00 Glucose (Glutose) 15 gm Q15M PRN BUCCAL DECREASED GLUCOSE; Start 12/06/16 at 16 :00 Acetaminophen (Tylenol Tab) 650 mg Q4H PRN PO PAIN; Start 12/06/16 at 17:00 Magnesium Hydroxide (Milk Of Mag) 30 ml BID PRN PO CONSTIPATION; Start at 17:00 Lactulose (Enulose) 20 gm DAILY PRN PO CONSTIPATION; Start 12/06/16 at 17:00 Oxycodone HCl (Oxycontin) 10 mg Q8 PO Last administered on 12/15/16 11:48; Admin Dose 10 MG; Start 12/07/16 at 11:30 Bisacodyl 10 mg 10 mg DAILY [place] ; Start 12/08/16 at 09:00 Ferric Sodium Gluconate Complex/ Sodium Chloride (Ferrlecit/NS) 110 ml @ 110 mls/hr Q24H IVPB Last administered on 12/14/16 20:55; Admin Dose 110 MLS/HR; Start 12/11/16 at 21:00; Stop 12/15/16 at 21:59 Phenazopyridine HCl 100 mg 100 mg TID PO Last administered on 12/15/16 11:19; Admin Dose 100 MG; Start 12/12/16 at 21:00 Caspofungin/ Sodium Chloride (Cancidas/NS) 250 ml @ 250 mls/hr Q24H IVPB Last administered on 12/14/16 18:39; Admin Dose 250 MLS/HR; Start 12/13/16 at 17:00 Hydromorphone HCl (Dilaudid) 0.5 mg Q3H PRN IV PAIN Last administered on 12/15/16 10:30; Admin Dose 0.5 MG; Start 12/13/16 at 11:10 Warfarin Sodium (Coumadin) 10 mg DAILY@17 PO Last administered on 12/14/16 19: 44; Admin Dose 10 MG; Start 12/13/16 at 17:00 Senna (Senokot) 2 tab HS PO Last administered on 12/14/16 20:59; Admin Dose 2 TAB; Start 12/13/16 at 21:00 Assessment/Plan Additional Assessment/Plan Rehabilitation-T7 incomplete paraplegia due to epidural abscess/osteomyelitis- status post Thoracic laminectomy drainage of abscess Continue rehab plan, increase activities as tolerated Pulmonary -post operative respiratory failure requiring intubation, with eventual extubation, currently stable Toxic metabolic encephalopathy-continue treatment plan Diabetes Mellitus type 2 ESRD on HD Afib Coronary Artery Disease history of DVT Hypertension Hypercholesterolemia COPD history of CVA anxiety depression ALINE CORREIA MD Dec 15, 2016 13:04
--- NOTE | 2016-12-15 15:13 | CONS ---
Date/Time of Note Date/Time of Note DATE: 12/15/16 TIME: 15:12 Consult Date/Type/Reason Admit Date/Time Dec 06, 2016 at 10:56 Initial Consult Date 12/10/16 Type of Consultation: CARDIOLOGY Subjective CARDIOLOGY FOLLOW UP d/w staff. d/ w pt still c/o left hip pain now. it is intermittent. no chest pain or pressure. no palpitations or bleeding she has fatigue no bleeding. OBJECTIVE: General: no acute distress. Obese female. HEENT: NC/AT. pupils are equal. round. NECK: NO JVD. no stridor. CV: RRR. systolic murmur; no gallop or rubs. chest: s/p R HD access in place. PULM: no wheezing or rhonchi. GI: SOFT, NT, ND, no rebound or guarding. Obese Extremity: + B/L LE edema. no clubbing. neuro: awake and alert,. Psych: calm and pleasant rectal: deferred ECG 12/08/16: NSR. echo 12/08/16 reviewed: 1. Normal left ventricular systolic function. Normal left ventricular cavity size. Mild concentric left ventricular hypertrophy. Ejection fraction is visually estimated at 55 %. Abnormal Diastolic Function. 2. The left atrium is normal in size. 3. Mitral valve leaflets appear mildly thickened. Mild mitral annular calcification. Trace mitral regurgitation. 4. Normal appearance of the aortic valve. No significant aortic stenosis or insufficiency. 5. Normal appearance of the tricuspid valve. Estimated peak PA systolic pressure 42 mmHg. There is mild tricuspid regurgitation. 6. Normal size and normal respiratory collapse consistent with normal right atrial pressure. Objective Vital Signs Date Time Temp Pulse Resp B/P Pulse Ox O2 Delivery O2 Flow Rate FiO2 12/15/16 14:10 85 21 95 21 12/15/16 08:06 98.2 140/65 12/15/16 08:00 Nasal Cannula 2.0 Intake and Output 12/14/16 12/14/16 12/15/16 15:00 23:00 07:00 Intake Total 2140 ml 240 ml Output Total 3600 ml Balance -1460 ml 240 ml Results/Medications Result Diagram: 12/14/16 0650 12/14/16 0650 Results 24 hrs Laboratory Tests Test 12/14/16 18:37 12/14/16 20:53 12/15/16 06:08 12/15/16 07:51 Bedside Glucose 113 122 92 Prothrombin Time 26.5 #H Prothrombin Time Ratio 2.1 INR International Normalized Ratio 2.41 Test 12/15/16 11:57 Bedside Glucose 102 Medications Current Medications Sertraline HCl (Zoloft) 100 mg DAILY PO Last administered on 12/15/16 11:19; Admin Dose 100 MG; Start 12/07/16 at 09:00 Amlodipine Besylate (Norvasc) 5 mg BID PO Last administered on 12/14/16 20:57; Admin Dose 5 MG; Start 12/06/16 at 21:00 Losartan Potassium (Cozaar) 50 mg BID PO Last administered on 12/14/16 20:59; Admin Dose 50 MG; Start 12/06/16 at 21:00 Atorvastatin Calcium (Lipitor) 80 mg DAILY@21 PO Last administered on 12/14/16 20:58; Admin Dose 80 MG; Start 12/06/16 at 21:00 Polyethylene Glycol (Miralax) 17 gm DAILY PO Last administered on 12/15/16 11: 19; Admin Dose 17 GM; Start 12/07/16 at 09:00 Docusate Sodium (Colace) 100 mg BID PO Last administered on 12/15/16 11:18; Admin Dose 100 MG; Start 12/06/16 at 21:00 Metoprolol Tartrate (Lopressor) 100 mg BID PO Last administered on 12/14/16 20: 58; Admin Dose 100 MG; Start 12/06/16 at 21:00 Vitamin B Complex/ Vitamin C (Berocca) 1 cap BID PO Last administered on 11:17; Admin Dose 1 CAP; Start 12/06/16 at 21:00 Cholecalciferol (Vitamin D) 400 units DAILY PO Last administered on 12/15/16 11 :17; Admin Dose 400 UNITS; Start 12/07/16 at 09:00 Pantoprazole (Protonix Tab) 40 mg DAILY@06 PO Last administered on 12/15/16 05: 58; Admin Dose 40 MG; Start 12/07/16 at 06:00 Gabapentin (Neurontin) 400 mg Q8 PO Last administered on 12/15/16 14:03; Admin Dose 400 MG; Start 12/06/16 at 22:00 Hydralazine HCl (Apresoline) 50 mg TID PO Last administered on 12/15/16 14:22; Admin Dose 50 MG; Start 12/06/16 at 21:00 Methocarbamol (Robaxin) 500 mg TID PRN PO MUSCLE SPASMS Last administered on 10:30; Admin Dose 500 MG; Start 12/06/16 at 17:00 Diphenhydramine HCl (Benadryl) 25 mg Q6H PRN PO ITCHING Last administered on 10:33; Admin Dose 25 MG; Start 12/06/16 at 15:30 Miscellaneous Information 1 ea NOTE XX ; Start 12/06/16 at 16:00 Glucose (Glutose) 15 gm Q15M PRN PO DECREASED GLUCOSE; Start 12/06/16 at 16:00 Glucose (Glutose) 22.5 gm Q15M PRN PO DECREASED GLUCOSE; Start 12/06/16 at 16: 00 Dextrose (D50w Syringe) 25 ml Q15M PRN IV DECREASED GLUCOSE; Start 12/06/16 at 16:00 Dextrose (D50w Syringe) 50 ml Q15M PRN IV DECREASED GLUCOSE; Start 12/06/16 at 16:00 Glucagon (Glucagen) 1 mg Q15M PRN IM DECREASED GLUCOSE; Start 12/06/16 at 16:00 Glucose (Glutose) 15 gm Q15M PRN BUCCAL DECREASED GLUCOSE; Start 12/06/16 at 16 :00 Acetaminophen (Tylenol Tab) 650 mg Q4H PRN PO PAIN; Start 12/06/16 at 17:00 Magnesium Hydroxide (Milk Of Mag) 30 ml BID PRN PO CONSTIPATION; Start at 17:00 Lactulose (Enulose) 20 gm DAILY PRN PO CONSTIPATION; Start 12/06/16 at 17:00 Oxycodone HCl (Oxycontin) 10 mg Q8 PO Last administered on 12/15/16 11:48; Admin Dose 10 MG; Start 12/07/16 at 11:30 Bisacodyl 10 mg 10 mg DAILY AR ; Start 12/08/16 at 09:00 Ferric Sodium Gluconate Complex/ Sodium Chloride (Ferrlecit/NS) 110 ml @ 110 mls/hr Q24H IVPB Last administered on 12/14/16 20:55; Admin Dose 110 MLS/HR; Start 12/11/16 at 21:00; Stop 12/15/16 at 21:59 Phenazopyridine HCl 100 mg 100 mg TID PO Last administered on 12/15/16 13:00; Admin Dose 100 MG; Start 12/12/16 at 21:00 Caspofungin/ Sodium Chloride (Cancidas/NS) 250 ml @ 250 mls/hr Q24H IVPB Last administered on 12/14/16 18:39; Admin Dose 250 MLS/HR; Start 12/13/16 at 17:00 Hydromorphone HCl (Dilaudid) 0.5 mg Q3H PRN IV PAIN -02/16 Last administered on 12/15/16 14:03; Admin Dose 0.5 MG; Start 12/13/16 at 11:10 Senna (Senokot) 2 tab HS PO Last administered on 12/14/16 20:59; Admin Dose 2 TAB; Start 12/13/16 at 21:00 Warfarin Sodium (Coumadin) 5 mg DAILY@17 PO ; Start 12/15/16 at 17:00 Assessment/Plan Chief Complaint/Hosp Course 1. History of P-atrial fibrillation. Currently in NSR 2. History of CVA 3. Hypertension. 4. Renal failure, on dialysis. 5. History of dyslipidemia. 6. History of multiple infections. 7. Discitis. 8. Severe anemia. 9. History of deep vein thrombosis. 10. hyper K: to be corrected by HD. Adjust coumadin to goal INR 2-3. coumadin 5 mg today and will check INR IN AM . ECHO shows normal EF AND LA size. cont betablocker. HD as per renal will check daily PT/INR and adjust coumadin dosing. Cont PT as tolerated. THANK YOU Problems: TAMERA BAILEY MD Dec 15, 2016 15:13
[2016-12-15] MEDS: CASPOFUNGIN 50 MG in SOD CHLORIDE 0.9% 250 ML IVPB SCH (17:46)
[2016-12-15] MEDS: WARFARIN 5 MG TAB PO SCH (18:29)
[2016-12-15 20:00] VITALS: BP 139/63; RESP 18
[2016-12-15] MEDS: SENNA TAB PO SCH (20:56)
[2016-12-15] MEDS: SOD FERRIC GLUC COMPLX 125 MG in SOD CHLORIDE 0.9% 100 ML IVPB SCH (20:56)
[2016-12-15] MEDS: ATORVASTATIN 80 MG TAB PO SCH (20:57)
[2016-12-16] VITALS (9 sets, daily range): BP systolic 105–145; BP diastolic 61–77; PULSE 66–77; RESP 18
[2016-12-16] MEDS: HYDROmorphONE 1 MG/ML SYG IV PRN ×2 (00:46→08:16)
[2016-12-16] MEDS: GABAPENTIN 400 MG CAP PO SCH ×3 (06:37→22:12)
[2016-12-16] MEDS: oxyCODONE (CR) 10 MG TAB [oxyCONTIN] PO SCH ×3 (06:37→22:13)
[2016-12-16] MEDS: PANTOPRAZOLE (EC) 40 MG TAB PO SCH (06:37)
[2016-12-16] MEDS: Insulin ASPART slide scale (Novolog) SC SCH ×4 (07:05→21:00)
[2016-12-16 07:56] LABS: INR 2.83; PROTIME 30.1 Sec (12.2-14.2); PT RATIO 2.4
[2016-12-16] MEDS: POLYETHYLENE GLYCOL 17 GM PACKET PO SCH (08:13)
[2016-12-16] MEDS: AMLODIPINE 5 MG TAB PO SCH ×2 (08:14→21:11)
[2016-12-16] MEDS: SEVELAMER 800 MG TAB PO SCH ×3 (08:14→18:44)
[2016-12-16] MEDS: SERTRALINE 100 MG TAB PO SCH (08:14)
[2016-12-16] MEDS: METOPROLOL 100 MG TAB PO SCH ×2 (08:15→21:10)
[2016-12-16] MEDS: VITAMIN B COMPLEX/VIT C CAP PO SCH ×2 (08:15→21:11)
[2016-12-16] MEDS: DOCUSATE SODIUM 100 MG CAP PO SCH ×2 (08:15→21:11)
[2016-12-16] MEDS: CHOLECALCIFEROL 400 UNITS TAB PO SCH (08:15)
[2016-12-16] MEDS: LOSARTAN 50 MG TAB PO SCH ×2 (08:15→21:11)
[2016-12-16] MEDS: PHENAZOPYRIDINE 100 MG TAB PO SCH ×3 (08:15→21:11)
[2016-12-16] MEDS: BISACODYL 10 MG SUPP PR SCH (08:16)
[2016-12-16] MEDS: ALBUTEROL/IPRATROPIUM (NEB) 3 ML AMP HHN SCH ×3 (08:36→20:00)
--- NOTE | 2016-12-16 08:59 | CONS ---
Date/Time of Note Date/Time of Note DATE: 12/16/16 TIME: 08:58 Consult Date/Type/Reason Admit Date/Time Dec 06, 2016 at 10:56 Initial Consult Date 12/10/16 Type of Consultation: CARDIOLOGY Subjective CARDIOLOGY FOLLOW UP d/w staff. pt still c/o left hip pain now. it is intermittent. she c/o cramp in her leg intermittently no chest pain or pressure. no palpitations or bleeding she has fatigue no bleeding. OBJECTIVE: General: no acute distress. Obese female. HEENT: NC/AT. pupils are equal. round. NECK: NO JVD. no stridor. CV: RRR. systolic murmur; no gallop or rubs. chest: s/p R HD access in place. PULM: no wheezing or rhonchi. GI: SOFT, NT, ND, no rebound or guarding. Obese Extremity: + B/L LE edema. no clubbing. neuro: awake and alert,. Psych: calm and pleasant rectal: deferred ECG 12/08/16: NSR. echo 12/08/16 reviewed: 1. Normal left ventricular systolic function. Normal left ventricular cavity size. Mild concentric left ventricular hypertrophy. Ejection fraction is visually estimated at 55 %. Abnormal Diastolic Function. 2. The left atrium is normal in size. 3. Mitral valve leaflets appear mildly thickened. Mild mitral annular calcification. Trace mitral regurgitation. 4. Normal appearance of the aortic valve. No significant aortic stenosis or insufficiency. 5. Normal appearance of the tricuspid valve. Estimated peak PA systolic pressure 42 mmHg. There is mild tricuspid regurgitation. 6. Normal size and normal respiratory collapse consistent with normal right atrial pressure. Objective Vital Signs Date Time Temp Pulse Resp B/P Pulse Ox O2 Delivery O2 Flow Rate FiO2 12/16/16 08:37 77 16 93 Nasal Cannula 2.0 12/16/16 07:26 97.9 145/64 12/15/16 14:10 21 Intake and Output 12/15/16 12/15/16 12/16/16 15:00 23:00 07:00 Intake Total 720 ml 1170 ml Balance 720 ml 1170 ml Results/Medications Result Diagram: 12/14/16 0650 12/14/16 0650 Results 24 hrs Laboratory Tests Test 12/15/16 11:57 12/15/16 17:41 12/15/16 20:55 12/16/16 06:55 Bedside Glucose 102 112 117 Prothrombin Time 30.1 H Prothrombin Time Ratio 2.4 INR International Normalized Ratio 2.83 Test 12/16/16 07:42 Bedside Glucose 93 Medications Current Medications Sertraline HCl (Zoloft) 100 mg DAILY PO Last administered on 12/16/16 08:14; Admin Dose 100 MG; Start 12/07/16 at 09:00 Amlodipine Besylate (Norvasc) 5 mg BID PO Last administered on 12/16/16 08:14; Admin Dose 5 MG; Start 12/06/16 at 21:00 Losartan Potassium (Cozaar) 50 mg BID PO Last administered on 12/16/16 08:15; Admin Dose 50 MG; Start 12/06/16 at 21:00 Atorvastatin Calcium (Lipitor) 80 mg DAILY@21 PO Last administered on 12/15/16 20:57; Admin Dose 80 MG; Start 12/06/16 at 21:00 Polyethylene Glycol (Miralax) 17 gm DAILY PO Last administered on 12/16/16 08: 13; Admin Dose 17 GM; Start 12/07/16 at 09:00 Docusate Sodium (Colace) 100 mg BID PO Last administered on 12/16/16 08:15; Admin Dose 100 MG; Start 12/06/16 at 21:00 Metoprolol Tartrate (Lopressor) 100 mg BID PO Last administered on 12/16/16 08: 15; Admin Dose 100 MG; Start 12/06/16 at 21:00 Vitamin B Complex/ Vitamin C (Berocca) 1 cap BID PO Last administered on 08:15; Admin Dose 1 CAP; Start 12/06/16 at 21:00 Cholecalciferol (Vitamin D) 400 units DAILY PO Last administered on 12/16/16 08 :15; Admin Dose 400 UNITS; Start 12/07/16 at 09:00 Pantoprazole (Protonix Tab) 40 mg DAILY@06 PO Last administered on 12/16/16 06: 37; Admin Dose 40 MG; Start 12/07/16 at 06:00 Gabapentin (Neurontin) 400 mg Q8 PO Last administered on 12/16/16 06:37; Admin Dose 400 MG; Start 12/06/16 at 22:00 Hydralazine HCl (Apresoline) 50 mg TID PO Last administered on 12/16/16 08:15; Admin Dose 50 MG; Start 12/06/16 at 21:00 Methocarbamol (Robaxin) 500 mg TID PRN PO MUSCLE SPASMS Last administered on 10:30; Admin Dose 500 MG; Start 12/06/16 at 17:00 Diphenhydramine HCl (Benadryl) 25 mg Q6H PRN PO ITCHING Last administered on 10:33; Admin Dose 25 MG; Start 12/06/16 at 15:30 Miscellaneous Information 1 ea NOTE XX ; Start 12/06/16 at 16:00 Glucose (Glutose) 15 gm Q15M PRN PO DECREASED GLUCOSE; Start 12/06/16 at 16:00 Glucose (Glutose) 22.5 gm Q15M PRN PO DECREASED GLUCOSE; Start 12/06/16 at 16: 00 Dextrose (D50w Syringe) 25 ml Q15M PRN IV DECREASED GLUCOSE; Start 12/06/16 at 16:00 Dextrose (D50w Syringe) 50 ml Q15M PRN IV DECREASED GLUCOSE; Start 12/06/16 at 16:00 Glucagon (Glucagen) 1 mg Q15M PRN IM DECREASED GLUCOSE; Start 12/06/16 at 16:00 Glucose (Glutose) 15 gm Q15M PRN BUCCAL DECREASED GLUCOSE; Start 12/06/16 at 16 :00 Acetaminophen (Tylenol Tab) 650 mg Q4H PRN PO PAIN; Start 12/06/16 at 17:00 Magnesium Hydroxide (Milk Of Mag) 30 ml BID PRN PO CONSTIPATION; Start at 17:00 Lactulose (Enulose) 20 gm DAILY PRN PO CONSTIPATION; Start 12/06/16 at 17:00 Oxycodone HCl (Oxycontin) 10 mg Q8 PO Last administered on 12/16/16 06:37; Admin Dose 10 MG; Start 12/07/16 at 11:30 Bisacodyl (Dulcolax Supp) 10 mg DAILY [place] ; Start 12/08/16 at 09:00 Phenazopyridine HCl 100 mg 100 mg TID PO Last administered on 12/16/16 08:15; Admin Dose 100 MG; Start 12/12/16 at 21:00 Caspofungin/ Sodium Chloride (Cancidas/NS) 250 ml @ 250 mls/hr Q24H IVPB Last administered on 12/15/16 17:46; Admin Dose 250 MLS/HR; Start 12/13/16 at 17:00 Hydromorphone HCl (Dilaudid) 0.5 mg Q3H PRN IV PAIN 7-02/16 Last administered on 12/16/16 08:16; Admin Dose 0.5 MG; Start 12/13/16 at 11:10 Senna (Senokot) 2 tab HS PO Last administered on 12/15/16 20:56; Admin Dose 2 TAB; Start 12/13/16 at 21:00 Warfarin Sodium (Coumadin) 5 mg DAILY@17 PO Last administered on 12/15/16 18:29 ; Admin Dose 5 MG; Start 12/15/16 at 17:00 Assessment/Plan Chief Complaint/Hosp Course 1. History of P-atrial fibrillation. Currently in NSR 2. History of CVA 3. Hypertension. 4. Renal failure, on dialysis. 5. History of dyslipidemia. 6. History of multiple infections. 7. Discitis. 8. Severe anemia. 9. History of deep vein thrombosis. 10. hyper K: to be corrected by HD. Adjust coumadin to goal INR 2-3. coumadin 5 mg today and will check INR IN AM . ECHO shows normal EF AND LA size. cont betablocker. HD as per renal will check daily PT/INR and adjust coumadin dosing. Cont PT as tolerated. THANK YOU Problems: TAMERA BAILEY MD Dec 16, 2016 08:59
--- NOTE | 2016-12-16 09:01 | PN ---
DATE: 12/16/2016 SUBJECTIVE DATA: The patient is stable. No events overnight. No fever, chills, nausea or vomiting. OBJECTIVE DATA: Vitals: Blood pressure 145/54, temperature 97.9, pulse 70, respirations 18. HEENT: Head is normocephalic. Neck is supple. Heart has regular rate. Lungs: Diminished breath sounds at the bases. Abdomen soft. Nontender to palpation. No rebound or guarding. Extremities: Negative for clubbing, cyanosis. No edema. Dermatologic: No rash. 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: Remains unchanged. MEDICATIONS: Reviewed. LABORATORY AND DIAGNOSTIC DATA: The patient's INR is 6.83. CBC has been reviewed. ASSESSMENT AND PLAN: 1. End-stage renal disease. Plan for hemodialysis today for three hours. K2 bath 2.5. 2. Anemia. Monitor hemoglobin and hematocrit levels. 3. Mineral bone disorder. Continue to monitor calcium and phosphorus levels. 4. Hypertension. Continue current medication regimen. 5. Osteomyelitis. Status post laminectomy. The patient is to complete antibiotic course. Appreciate ID's evaluation. Continue to monitor. 6. Mild leukocytosis. Continue to monitor. 7. C7 paraplegia, incomplete. Continue physical therapy. 8. History of deep vein thrombosis. Continue Coumadin. INR is near goal. 9. History of paroxysmal atrial fibrillation, currently in sinus rhythm. Continue medical management. 10. Diabetes. Continue Accu-Chek and insulin sliding scale. 11. Encephalopathy, improved. 12. History of cerebral vascular accident. Continue medical management. 13. History of chronic obstructive pulmonary disease. Continue current treatment plan. 14. GI and DVT prophylaxis. Continue proton pump inhibitor and Coumadin. Dictated By: Buck Seals DO /saul/yandy /Document#: [id number]
--- NOTE | 2016-12-16 13:14 | CONS ---
Date/Time of Note Date/Time of Note DATE: 12/16/16 TIME: 13:12 Consult Date/Type/Reason Admit Date/Time Dec 06, 2016 at 10:56 Type of Consultation: CARDIOLOGY Subjective No new complaints Objective Lungs clear abdomen soft Moderate assist transfer Vital Signs Date Time Temp Pulse Resp B/P Pulse Ox O2 Delivery O2 Flow Rate FiO2 12/16/16 08:37 77 16 93 Nasal Cannula 2.0 12/16/16 07:26 97.9 145/64 12/15/16 14:10 21 Intake and Output 12/15/16 12/15/16 12/16/16 15:00 23:00 07:00 Intake Total 720 ml 1170 ml Balance 720 ml 1170 ml Results/Medications Result Diagram: 12/14/16 0650 12/14/16 0650 Results 24 hrs Laboratory Tests Test 12/15/16 17:41 12/15/16 20:55 12/16/16 06:55 12/16/16 07:42 Bedside Glucose 112 117 93 Prothrombin Time 30.1 H Prothrombin Time Ratio 2.4 INR International Normalized Ratio 2.83 Test 12/16/16 12:10 Bedside Glucose 85 Medications Current Medications Sertraline HCl (Zoloft) 100 mg DAILY PO Last administered on 12/16/16 08:14; Admin Dose 100 MG; Start 12/07/16 at 09:00 Amlodipine Besylate (Norvasc) 5 mg BID PO Last administered on 12/16/16 08:14; Admin Dose 5 MG; Start 12/06/16 at 21:00 Losartan Potassium (Cozaar) 50 mg BID PO Last administered on 12/16/16 08:15; Admin Dose 50 MG; Start 12/06/16 at 21:00 Atorvastatin Calcium (Lipitor) 80 mg DAILY@21 PO Last administered on 12/15/16 20:57; Admin Dose 80 MG; Start 12/06/16 at 21:00 Polyethylene Glycol (Miralax) 17 gm DAILY PO Last administered on 12/16/16 08: 13; Admin Dose 17 GM; Start 12/07/16 at 09:00 Docusate Sodium (Colace) 100 mg BID PO Last administered on 12/16/16 08:15; Admin Dose 100 MG; Start 12/06/16 at 21:00 Metoprolol Tartrate (Lopressor) 100 mg BID PO Last administered on 12/16/16 08: 15; Admin Dose 100 MG; Start 12/06/16 at 21:00 Vitamin B Complex/ Vitamin C (Berocca) 1 cap BID PO Last administered on 08:15; Admin Dose 1 CAP; Start 12/06/16 at 21:00 Cholecalciferol (Vitamin D) 400 units DAILY PO Last administered on 12/16/16 08 :15; Admin Dose 400 UNITS; Start 12/07/16 at 09:00 Pantoprazole (Protonix Tab) 40 mg DAILY@06 PO Last administered on 12/16/16 06: 37; Admin Dose 40 MG; Start 12/07/16 at 06:00 Gabapentin (Neurontin) 400 mg Q8 PO Last administered on 12/16/16 06:37; Admin Dose 400 MG; Start 12/06/16 at 22:00 Hydralazine HCl (Apresoline) 50 mg TID PO Last administered on 12/16/16 08:15; Admin Dose 50 MG; Start 12/06/16 at 21:00 Methocarbamol (Robaxin) 500 mg TID PRN PO MUSCLE SPASMS Last administered on 10:30; Admin Dose 500 MG; Start 12/06/16 at 17:00 Diphenhydramine HCl (Benadryl) 25 mg Q6H PRN PO ITCHING Last administered on 10:33; Admin Dose 25 MG; Start 12/06/16 at 15:30 Miscellaneous Information 1 ea NOTE XX ; Start 12/06/16 at 16:00 Glucose (Glutose) 15 gm Q15M PRN PO DECREASED GLUCOSE; Start 12/06/16 at 16:00 Glucose (Glutose) 22.5 gm Q15M PRN PO DECREASED GLUCOSE; Start 12/06/16 at 16: 00 Dextrose (D50w Syringe) 25 ml Q15M PRN IV DECREASED GLUCOSE; Start 12/06/16 at 16:00 Dextrose (D50w Syringe) 50 ml Q15M PRN IV DECREASED GLUCOSE; Start 12/06/16 at 16:00 Glucagon (Glucagen) 1 mg Q15M PRN IM DECREASED GLUCOSE; Start 12/06/16 at 16:00 Glucose (Glutose) 15 gm Q15M PRN BUCCAL DECREASED GLUCOSE; Start 12/06/16 at 16 :00 Acetaminophen (Tylenol Tab) 650 mg Q4H PRN PO PAIN; Start 12/06/16 at 17:00 Magnesium Hydroxide (Milk Of Mag) 30 ml BID PRN PO CONSTIPATION; Start at 17:00 Lactulose (Enulose) 20 gm DAILY PRN PO CONSTIPATION; Start 12/06/16 at 17:00 Oxycodone HCl (Oxycontin) 10 mg Q8 PO Last administered on 12/16/16 06:37; Admin Dose 10 MG; Start 12/07/16 at 11:30 Bisacodyl (Dulcolax Supp) 10 mg DAILY NM ; Start 12/08/16 at 09:00 Phenazopyridine HCl 100 mg 100 mg TID PO Last administered on 12/16/16 12:17; Admin Dose 100 MG; Start 12/12/16 at 21:00 Caspofungin/ Sodium Chloride (Cancidas/NS) 250 ml @ 250 mls/hr Q24H IVPB Last administered on 12/15/16 17:46; Admin Dose 250 MLS/HR; Start 12/13/16 at 17:00 Hydromorphone HCl (Dilaudid) 0.5 mg Q3H PRN IV PAIN -02/16 Last administered on 12/16/16 08:16; Admin Dose 0.5 MG; Start 12/13/16 at 11:10 Senna (Senokot) 2 tab HS PO Last administered on 12/15/16 20:56; Admin Dose 2 TAB; Start 12/13/16 at 21:00 Warfarin Sodium (Coumadin) 5 mg DAILY@17 PO Last administered on 12/15/16 18:29 ; Admin Dose 5 MG; Start 12/15/16 at 17:00 Assessment/Plan Additional Assessment/Plan Rehabilitation-T7 incomplete paraplegia due to epidural abscess/osteomyelitis- status post Thoracic laminectomy drainage of abscess Continue interdisciplinary treatment plan, patient making functional gains Pulmonary -post operative respiratory failure requiring intubation, with eventual extubation, currently stable Toxic metabolic encephalopathy-continue treatment plan, cognition improving Diabetes Mellitus type 2 ESRD on HD Afib Coronary Artery Disease history of DVT Hypertension Hypercholesterolemia COPD history of CVA anxiety depression ALINE CORREIA MD Dec 16, 2016 13:13
[2016-12-16] MEDS: EPOETIN 4000 UNITS/1 ML INJ (ESRD) SC SCH (18:37)
[2016-12-16] MEDS: CASPOFUNGIN 50 MG in SOD CHLORIDE 0.9% 250 ML IVPB SCH (18:44)
[2016-12-16] MEDS: WARFARIN 5 MG TAB PO SCH (18:44)
--- NOTE | 2016-12-16 20:35 | CONS ---
Date/Time of Note Date/Time of Note DATE: 12/16/16 TIME: 20:25 Assessment/Plan Assessment/Plan Chief Complaint/Hosp Course ID PROGRESS NOTE CURRENT ABX: Cancidas #5=> DC tonight s/p Fosfomycin 3gm PO x1 8 DC Keflex 8/6 24H INTERVAL SUMMARY * Awake, alert, obese F, w/intractable back pain -- s/p ABX Rx completion for diskitis/osteomyelitis thoracic spine * Cannot have MRI to evaluate for residual infection of the spine due to presence of hardware. * No fevers, WBC mildly elevated at 11.1 on 12/14 * MICRO: * (-)MRSA Nares * 12/11/17 UA (+) <10,000 GNR + <10,000 Yeast => she has been treated for GNR w/ Fosfomycin x1 12/12 + Cancidas for yeast * 12/11 Urine Cx URINE CULTURE Preliminary Organism 1 JAMILAH ALBICANS COLONY COUNT <10,000 CFU/ml Organism 2 GRAM NEGATIVE LUZ MARIA COLONY COUNT <10,000 CFU/ml ID ASSESSMENT 51 yo F w/PMHx HTN, HLD, CAD, Afib, CVA, DVT, Psych Dx: Anxiety/Depression admit to [facility] with: 1. T7 incomplete paraplegia due to epidural abscess/osteomyelitis-status post thoracic laminectomy, drainage of abscess, with impaired mobility and ADLs. * Patient has completed full course of ABX for osteomyelitis, per Dr. Samaniego note = continue to monitor OFF ABX * Back pain persisting 2. SIRS w/leukocytosis == Non-specific reactive, possible early UTI vs PermCath vs Aspiration syndrome ? * URINE Cx 12/11 (+) Funguria == Possible early UTI * URINE CULTURE Preliminary Organism 1 JAMILAH ALBICANS COLONY COUNT <10,000 CFU/ml 3. Status post respiratory failure. 4. COPD 5. Toxic metabolic encephalopathy w/impairments in short term memory/ ? Dysphagia = Aspiration pneumonitis risk 6. Diabetes Mellitus type 2 7. ESRD on hemodialysis per nephrology. 8. Back pain (-)MRSA Nares INVASIVES: [facility] HD cath w/Venous pigtail CURRENT ABX: Cancidas #5=> DC tonight s/p Fosfomycin 3gm PO x1 8/ DC Keflex 8/6 ID RECOMMENDATIONS 1. DC Cancidas -- has received adequate Rx for concern low colony count bacteruria/funguria 2. The etiology of her intractable back pain is unclear -- she had sxs of SIRS w /low grade temp and mild leukocytosis which is nonspecific. * DC ABX * Obtain BCx next HD via PermCath 3. Patient is not a candidate for MRI spine due to presence of hardware. 4. I will discuss with Dr. Samaniego the feasibility of sending her for a 3-phase bone scan + Gallium scan to compare for presence of active disease vs treated. * Will attempt to discuss w/[facility] radiologist this week. . Problems: Consultation Date/Type/Reason Admit Date/Time Dec 06, 2016 at 10:56 Initial Consult Date 12/10/16 Type of Consultation: ID Exam/Review of Systems Vital Signs Vitals Vital Signs Date Time Temp Pulse Resp B/P Pulse Ox O2 Delivery O2 Flow Rate FiO2 12/16/16 20:00 98.3 78 18 145/64 89 12/16/16 08:37 Nasal Cannula 2.0 12/15/16 14:10 21 Intake and Output 12/15/16 12/15/16 12/16/16 15:00 23:00 07:00 Intake Total 720 ml 1170 ml Balance 720 ml 1170 ml Results Result Diagram: 12/14/16 0650 12/14/16 0650 Results 24 hrs Laboratory Tests Test 12/15/16 20:55 12/16/16 06:55 12/16/16 07:42 12/16/16 12:10 Bedside Glucose 117 93 85 Prothrombin Time 30.1 H Prothrombin Time Ratio 2.4 INR International Normalized Ratio 2.83 Test 12/16/16 18:41 Bedside Glucose 172 Medications Medications Current Medications Sertraline HCl (Zoloft) 100 mg DAILY PO Last administered on 12/16/16 08:14; Admin Dose 100 MG; Start 12/07/16 at 09:00 Amlodipine Besylate (Norvasc) 5 mg BID PO Last administered on 12/16/16 08:14; Admin Dose 5 MG; Start 12/06/16 at 21:00 Losartan Potassium (Cozaar) 50 mg BID PO Last administered on 12/16/16 08:15; Admin Dose 50 MG; Start 12/06/16 at 21:00 Atorvastatin Calcium (Lipitor) 80 mg DAILY@21 PO Last administered on 12/15/16 20:57; Admin Dose 80 MG; Start 12/06/16 at 21:00 Polyethylene Glycol (Miralax) 17 gm DAILY PO Last administered on 12/16/16 08: 13; Admin Dose 17 GM; Start 12/07/16 at 09:00 Docusate Sodium (Colace) 100 mg BID PO Last administered on 12/16/16 08:15; Admin Dose 100 MG; Start 12/06/16 at 21:00 Metoprolol Tartrate (Lopressor) 100 mg BID PO Last administered on 12/16/16 08: 15; Admin Dose 100 MG; Start 12/06/16 at 21:00 Vitamin B Complex/ Vitamin C (Berocca) 1 cap BID PO Last administered on 08:15; Admin Dose 1 CAP; Start 12/06/16 at 21:00 Cholecalciferol (Vitamin D) 400 units DAILY PO Last administered on 12/16/16 08 :15; Admin Dose 400 UNITS; Start 12/07/16 at 09:00 Pantoprazole (Protonix Tab) 40 mg DAILY@06 PO Last administered on 12/16/16 06: 37; Admin Dose 40 MG; Start 12/07/16 at 06:00 Gabapentin (Neurontin) 400 mg Q8 PO Last administered on 12/16/16 15:15; Admin Dose 400 MG; Start 12/06/16 at 22:00 Hydralazine HCl (Apresoline) 50 mg TID PO Last administered on 12/16/16 08:15; Admin Dose 50 MG; Start 12/06/16 at 21:00 Methocarbamol (Robaxin) 500 mg TID PRN PO MUSCLE SPASMS Last administered on 10:30; Admin Dose 500 MG; Start 12/06/16 at 17:00 Diphenhydramine HCl (Benadryl) 25 mg Q6H PRN PO ITCHING Last administered on 10:33; Admin Dose 25 MG; Start 12/06/16 at 15:30 Miscellaneous Information 1 ea NOTE XX ; Start 12/06/16 at 16:00 Glucose (Glutose) 15 gm Q15M PRN PO DECREASED GLUCOSE; Start 12/06/16 at 16:00 Glucose (Glutose) 22.5 gm Q15M PRN PO DECREASED GLUCOSE; Start 12/06/16 at 16: 00 Dextrose (D50w Syringe) 25 ml Q15M PRN IV DECREASED GLUCOSE; Start 12/06/16 at 16:00 Dextrose (D50w Syringe) 50 ml Q15M PRN IV DECREASED GLUCOSE; Start 12/06/16 at 16:00 Glucagon (Glucagen) 1 mg Q15M PRN IM DECREASED GLUCOSE; Start 12/06/16 at 16:00 Glucose (Glutose) 15 gm Q15M PRN BUCCAL DECREASED GLUCOSE; Start 12/06/16 at 16 :00 Acetaminophen (Tylenol Tab) 650 mg Q4H PRN PO PAIN; Start 12/06/16 at 17:00 Magnesium Hydroxide (Milk Of Mag) 30 ml BID PRN PO CONSTIPATION; Start at 17:00 Lactulose (Enulose) 20 gm DAILY PRN PO CONSTIPATION; Start 12/06/16 at 17:00 Oxycodone HCl (Oxycontin) 10 mg Q8 PO Last administered on 12/16/16 15:15; Admin Dose 10 MG; Start 12/07/16 at 11:30 Bisacodyl (Dulcolax Supp) 10 mg DAILY [place] ; Start 12/08/16 at 09:00 Phenazopyridine HCl 100 mg 100 mg TID PO Last administered on 12/16/16 12:17; Admin Dose 100 MG; Start 12/12/16 at 21:00 Caspofungin/ Sodium Chloride (Cancidas/NS) 250 ml @ 250 mls/hr Q24H IVPB Last administered on 12/16/16 18:44; Admin Dose 250 MLS/HR; Start 12/13/16 at 17:00 Hydromorphone HCl (Dilaudid) 0.5 mg Q3H PRN IV PAIN Last administered on 12/16/16 08:16; Admin Dose 0.5 MG; Start 12/13/16 at 11:10 Senna (Senokot) 2 tab HS PO Last administered on 12/15/16 20:56; Admin Dose 2 TAB; Start 12/13/16 at 21:00 Warfarin Sodium (Coumadin) 5 mg DAILY@17 PO Last administered on 12/16/16 18:44 ; Admin Dose 5 MG; Start 12/15/16 at 17:00 ILIANA SALDANA NP Dec 16, 2016 20:35
[2016-12-16] MEDS: SENNA TAB PO SCH (21:11)
[2016-12-16] MEDS: ATORVASTATIN 80 MG TAB PO SCH (21:11)
--- NOTE | 2016-12-16 21:42 | PN ---
DATE: PSYCHOLOGY - INDIVIDUAL SESSION - [id number]: This is a follow up on a patient that was seen last week. The patient was seen in bed. The patient is still very depressed as she feels like she has not gotten a lot better. The patient is still in a lot of pain and sees herself as being discharged out to a [facility] facility soon. The patient does not believe that she can function at home and know note that she is wanting to get better, but at the present time not being able to feel like she has improved much. The patient is very frustrated with underlying levels of depression. I worked with the patient regarding her depression and tried to help her see that she has made some progress and at least is thinking things through clearly in regard to trying to go to a [facility] facility rather than trying to attempt to be home when she could not function. Dictated By: Marbin Cronin, PHD /saul/yamini /Document#: [id number]
[2016-12-17 02:00] VITALS: BP 140/63; RESP 18
[2016-12-17] MEDS: oxyCODONE (CR) 10 MG TAB [oxyCONTIN] PO SCH ×3 (05:38→21:51)
[2016-12-17] MEDS: GABAPENTIN 400 MG CAP PO SCH ×3 (05:38→21:49)
[2016-12-17] MEDS: PANTOPRAZOLE (EC) 40 MG TAB PO SCH (05:38)
[2016-12-17 06:49] LABS: BASOPHIL # 0.1 10^3/ul (0.0-0.1); BASOPHILS % 0.7 % (0.0-2.0); EOSINOPHILS % 10.6 % (0.0-7.0); HEMATOCRIT 27.3 % (37.0-47.0); HEMOGLOBIN 8.1 g/dl (12.0-16.0); LYMPHOCYTES # 2.2 10^3/ul (0.8-2.9); LYMPHOCYTES % 24.1 % (15.0-51.0); MEAN CORPUSCULAR HEMOGLOBIN 29.8 pg (29.0-33.0); MEAN CORPUSCULAR HGB CONC 29.7 g/dl (32.0-37.0); MEAN CORPUSCULAR VOLUME 100.4 fl (82.0-101.0); MONOCYTE # 0.7 10^3/ul (0.3-0.9); MONOCYTES % 7.7 % (0.0-11.0); NEUTROPHIL # 5.2 10^3/ul (1.6-7.5); NEUTROPHILS % 56.4 % (39.0-77.0); PLATELET COUNT 431 10^3/UL (140-415); RED BLOOD COUNT 2.72 10^6/ul (4.20-5.40); RED CELL DISTRIBUTION WIDTH 16.1 % (11.5-14.5); WHITE BLOOD COUNT 9.2 10^3/ul (4.8-10.8)
[2016-12-17] MEDS: Insulin ASPART slide scale (Novolog) SC SCH ×4 (07:05→21:52)
[2016-12-17 07:07] LABS: INR 2.86; PROTIME 30.4 Sec (12.2-14.2); PT RATIO 2.4
[2016-12-17 07:30] VITALS: BP 125/60; RESP 18
[2016-12-17] MEDS: SEVELAMER 800 MG TAB PO SCH ×3 (07:41→19:09)
[2016-12-17] MEDS: HYDROmorphONE 1 MG/ML SYG IV PRN ×5 (07:42→19:00)
[2016-12-17] MEDS: ALBUTEROL/IPRATROPIUM (NEB) 3 ML AMP HHN SCH ×3 (08:00→20:56)
--- NOTE | 2016-12-17 08:27 | CONS ---
Date/Time of Note Date/Time of Note DATE: 12/17/16 TIME: 08:26 Consult Date/Type/Reason Admit Date/Time Dec 06, 2016 at 10:56 Initial Consult Date 12/10/16 Type of Consultation: cardiology Subjective CARDIOLOGY FOLLOW UP d/w staff. pt still c/o left hip pain now. iit is worse with movement no chest pain or pressure. no palpitations or bleeding she has fatigue no bleeding. OBJECTIVE: General: no acute distress. Obese female. HEENT: NC/AT. pupils are equal. round. NECK: NO JVD. no stridor. CV: RRR. systolic murmur; no gallop or rubs. chest: s/p R HD access in place. PULM: no wheezing or rhonchi. GI: SOFT, NT, ND, no rebound or guarding. Obese Extremity: + B/L LE edema. no clubbing. neuro: awake and alert,. Psych: calm and pleasant rectal: deferred Objective Vital Signs Date Time Temp Pulse Resp B/P Pulse Ox O2 Delivery O2 Flow Rate FiO2 12/17/16 07:30 97.8 83 18 125/60 94 12/17/16 05:14 2.0 12/16/16 22:28 Nasal Cannula 12/15/16 14:10 21 Intake and Output 12/16/16 12/16/16 12/17/16 15:00 23:00 07:00 Intake Total 720 ml 1110 ml 500 ml Output Total 3000 ml Balance 720 ml -1890 ml 500 ml Results/Medications Result Diagram: 12/17/16 0610 12/14/16 0650 Results 24 hrs Laboratory Tests Test 12/16/16 12:10 12/16/16 18:41 12/16/16 21:06 12/17/16 06:10 Bedside Glucose 85 172 131 White Blood Count 9.2 Red Blood Count 2.72 L Hemoglobin 8.1 L Hematocrit 27.3 L Mean Corpuscular Volume 100.4 Mean Corpuscular Hemoglobin 29.8 Mean Corpuscular Hemoglobin Concent 29.7 L Red Cell Distribution Width 16.1 H Platelet Count 431 H Mean Platelet Volume 8.0 Neutrophils % 56.4 Lymphocytes % 24.1 Monocytes % 7.7 Eosinophils % 10.6 H Basophils % 0.7 Nucleated Red Blood Cells % 0.0 Neutrophils # 5.2 Lymphocytes # 2.2 Monocytes # 0.7 Eosinophils # 1.0 H Basophils # 0.1 Nucleated Red Blood Cells # 0.0 Prothrombin Time 30.4 H Prothrombin Time Ratio 2.4 INR International Normalized Ratio 2.86 Test 12/17/16 08:15 Bedside Glucose 87 Medications Current Medications Sertraline HCl (Zoloft) 100 mg DAILY PO Last administered on 12/16/16 08:14; Admin Dose 100 MG; Start 12/07/16 at 09:00 Amlodipine Besylate (Norvasc) 5 mg BID PO Last administered on 12/16/16 21:11; Admin Dose 5 MG; Start 12/06/16 at 21:00 Losartan Potassium (Cozaar) 50 mg BID PO Last administered on 12/16/16 21:11; Admin Dose 50 MG; Start 12/06/16 at 21:00 Atorvastatin Calcium (Lipitor) 80 mg DAILY@21 PO Last administered on 12/16/16 21:11; Admin Dose 80 MG; Start 12/06/16 at 21:00 Polyethylene Glycol (Miralax) 17 gm DAILY PO Last administered on 12/16/16 08: 13; Admin Dose 17 GM; Start 12/07/16 at 09:00 Docusate Sodium (Colace) 100 mg BID PO Last administered on 12/16/16 21:11; Admin Dose 100 MG; Start 12/06/16 at 21:00 Metoprolol Tartrate (Lopressor) 100 mg BID PO Last administered on 12/16/16 21: 10; Admin Dose 100 MG; Start 12/06/16 at 21:00 Vitamin B Complex/ Vitamin C (Berocca) 1 cap BID PO Last administered on 21:11; Admin Dose 1 CAP; Start 12/06/16 at 21:00 Cholecalciferol (Vitamin D) 400 units DAILY PO Last administered on 12/16/16 08 :15; Admin Dose 400 UNITS; Start 12/07/16 at 09:00 Pantoprazole (Protonix Tab) 40 mg DAILY@06 PO Last administered on 12/17/16 05 :38; Admin Dose 40 MG; Start 12/07/16 at 06:00 Gabapentin (Neurontin) 400 mg Q8 PO Last administered on 12/17/16 05:38; Admin Dose 400 MG; Start 12/06/16 at 22:00 Hydralazine HCl (Apresoline) 50 mg TID PO Last administered on 12/16/16 21:11; Admin Dose 50 MG; Start 12/06/16 at 21:00 Methocarbamol (Robaxin) 500 mg TID PRN PO MUSCLE SPASMS Last administered on 10:30; Admin Dose 500 MG; Start 12/06/16 at 17:00 Diphenhydramine HCl (Benadryl) 25 mg Q6H PRN PO ITCHING Last administered on 10:33; Admin Dose 25 MG; Start 12/06/16 at 15:30 Miscellaneous Information 1 ea NOTE XX ; Start 12/06/16 at 16:00 Glucose (Glutose) 15 gm Q15M PRN PO DECREASED GLUCOSE; Start 12/06/16 at 16:00 Glucose (Glutose) 22.5 gm Q15M PRN PO DECREASED GLUCOSE; Start 12/06/16 at 16: 00 Dextrose (D50w Syringe) 25 ml Q15M PRN IV DECREASED GLUCOSE; Start 12/06/16 at 16:00 Dextrose (D50w Syringe) 50 ml Q15M PRN IV DECREASED GLUCOSE; Start 12/06/16 at 16:00 Glucagon (Glucagen) 1 mg Q15M PRN IM DECREASED GLUCOSE; Start 12/06/16 at 16:00 Glucose (Glutose) 15 gm Q15M PRN BUCCAL DECREASED GLUCOSE; Start 12/06/16 at 16 :00 Acetaminophen (Tylenol Tab) 650 mg Q4H PRN PO PAIN; Start 12/06/16 at 17:00 Magnesium Hydroxide (Milk Of Mag) 30 ml BID PRN PO CONSTIPATION; Start at 17:00 Lactulose (Enulose) 20 gm DAILY PRN PO CONSTIPATION; Start 12/06/16 at 17:00 Oxycodone HCl (Oxycontin) 10 mg Q8 PO Last administered on 12/17/16 05:38; Admin Dose 10 MG; Start 12/07/16 at 11:30 Bisacodyl (Dulcolax Supp) 10 mg DAILY [place] ; Start 12/08/16 at 09:00 Phenazopyridine HCl 100 mg 100 mg TID PO Last administered on 12/16/16 21:11; Admin Dose 100 MG; Start 12/12/16 at 21:00 Caspofungin/ Sodium Chloride (Cancidas/NS) 250 ml @ 250 mls/hr Q24H IVPB Last administered on 12/16/16 18:44; Admin Dose 250 MLS/HR; Start 12/13/16 at 17:00 Hydromorphone HCl (Dilaudid) 0.5 mg Q3H PRN IV PAIN 7-02/16 Last administered on 12/16/16 08:16; Admin Dose 0.5 MG; Start 12/13/16 at 11:10 Senna (Senokot) 2 tab HS PO Last administered on 12/16/16 21:11; Admin Dose 2 TAB; Start 12/13/16 at 21:00 Warfarin Sodium (Coumadin) 5 mg DAILY@17 PO Last administered on 12/16/16 18:44 ; Admin Dose 5 MG; Start 12/15/16 at 17:00 Assessment/Plan Chief Complaint/Hosp Course 1. History of P-atrial fibrillation. Currently in NSR 2. History of CVA 3. Hypertension. 4. Renal failure, on dialysis. 5. History of dyslipidemia. 6. History of multiple infections. 7. Discitis. 8. Severe anemia. 9. History of deep vein thrombosis. 10. hyper K: to be corrected by HD. Adjust coumadin to goal INR 2-3. coumadin 5 mg today and will check INR IN AM . ECHO shows normal EF AND LA size. cont betablocker. HD as per renal will check daily PT/INR and adjust coumadin dosing. Cont PT as tolerated. THANK YOU Problems: TAMERA BAILEY MD Dec 17, 2016 08:27
[2016-12-17] MEDS: BISACODYL 10 MG SUPP PR SCH (09:00)
[2016-12-17] MEDS: VITAMIN B COMPLEX/VIT C CAP PO SCH ×3 (09:00→20:51)
[2016-12-17] MEDS: DOCUSATE SODIUM 100 MG CAP PO SCH ×2 (09:28→20:49)
[2016-12-17] MEDS: PHENAZOPYRIDINE 100 MG TAB PO SCH ×3 (09:28→20:51)
[2016-12-17] MEDS: SERTRALINE 100 MG TAB PO SCH (09:29)
--- NOTE | 2016-12-17 10:35 | CONS ---
Date/Time of Note Date/Time of Note DATE: 12/17/16 TIME: 10:35 Consult Date/Type/Reason Admit Date/Time Dec 06, 2016 at 10:56 Type of Consultation: cardiology Subjective No new complaints Objective Lungs clear Abdomen soft Vital Signs Date Time Temp Pulse Resp B/P Pulse Ox O2 Delivery O2 Flow Rate FiO2 12/17/16 07:30 97.8 83 18 125/60 94 12/17/16 05:14 2.0 12/16/16 22:28 Nasal Cannula 12/15/16 14:10 21 Intake and Output 12/16/16 12/16/16 12/17/16 15:00 23:00 07:00 Intake Total 720 ml 1110 ml 500 ml Output Total 3000 ml Balance 720 ml -1890 ml 500 ml Results/Medications Result Diagram: 12/17/16 0610 12/14/16 0650 Results 24 hrs Laboratory Tests Test 12/16/16 12:10 12/16/16 18:41 12/16/16 21:06 12/17/16 06:10 Bedside Glucose 85 172 131 White Blood Count 9.2 Red Blood Count 2.72 L Hemoglobin 8.1 L Hematocrit 27.3 L Mean Corpuscular Volume 100.4 Mean Corpuscular Hemoglobin 29.8 Mean Corpuscular Hemoglobin Concent 29.7 L Red Cell Distribution Width 16.1 H Platelet Count 431 H Mean Platelet Volume 8.0 Neutrophils % 56.4 Lymphocytes % 24.1 Monocytes % 7.7 Eosinophils % 10.6 H Basophils % 0.7 Nucleated Red Blood Cells % 0.0 Neutrophils # 5.2 Lymphocytes # 2.2 Monocytes # 0.7 Eosinophils # 1.0 H Basophils # 0.1 Nucleated Red Blood Cells # 0.0 Prothrombin Time 30.4 H Prothrombin Time Ratio 2.4 INR International Normalized Ratio 2.86 Test 12/17/16 08:15 Bedside Glucose 87 Medications Current Medications Sertraline HCl (Zoloft) 100 mg DAILY PO Last administered on 12/17/16 09:29; Admin Dose 100 MG; Start 12/07/16 at 09:00 Amlodipine Besylate (Norvasc) 5 mg BID PO Last administered on 12/16/16 21:11; Admin Dose 5 MG; Start 12/06/16 at 21:00 Losartan Potassium (Cozaar) 50 mg BID PO Last administered on 12/16/16 21:11; Admin Dose 50 MG; Start 12/06/16 at 21:00 Atorvastatin Calcium (Lipitor) 80 mg DAILY@21 PO Last administered on 12/16/16 21:11; Admin Dose 80 MG; Start 12/06/16 at 21:00 Polyethylene Glycol (Miralax) 17 gm DAILY PO Last administered on 12/16/16 08: 13; Admin Dose 17 GM; Start 12/07/16 at 09:00 Docusate Sodium (Colace) 100 mg BID PO Last administered on 12/17/16 09:28; Admin Dose 100 MG; Start 12/06/16 at 21:00 Metoprolol Tartrate (Lopressor) 100 mg BID PO Last administered on 12/16/16 21: 10; Admin Dose 100 MG; Start 12/06/16 at 21:00 Vitamin B Complex/ Vitamin C (Berocca) 1 cap BID PO Last administered on 21:11; Admin Dose 1 CAP; Start 12/06/16 at 21:00 Cholecalciferol (Vitamin D) 400 units DAILY PO Last administered on 12/16/16 08 :15; Admin Dose 400 UNITS; Start 12/07/16 at 09:00 Pantoprazole (Protonix Tab) 40 mg DAILY@06 PO Last administered on 12/17/16 05 :38; Admin Dose 40 MG; Start 12/07/16 at 06:00 Gabapentin (Neurontin) 400 mg Q8 PO Last administered on 12/17/16 05:38; Admin Dose 400 MG; Start 12/06/16 at 22:00 Hydralazine HCl (Apresoline) 50 mg TID PO Last administered on 12/16/16 21:11; Admin Dose 50 MG; Start 12/06/16 at 21:00 Methocarbamol (Robaxin) 500 mg TID PRN PO MUSCLE SPASMS Last administered on 10:30; Admin Dose 500 MG; Start 12/06/16 at 17:00 Diphenhydramine HCl (Benadryl) 25 mg Q6H PRN PO ITCHING Last administered on 10:33; Admin Dose 25 MG; Start 12/06/16 at 15:30 Miscellaneous Information 1 ea NOTE XX ; Start 12/06/16 at 16:00 Glucose (Glutose) 15 gm Q15M PRN PO DECREASED GLUCOSE; Start 12/06/16 at 16:00 Glucose (Glutose) 22.5 gm Q15M PRN PO DECREASED GLUCOSE; Start 12/06/16 at 16: 00 Dextrose (D50w Syringe) 25 ml Q15M PRN IV DECREASED GLUCOSE; Start 12/06/16 at 16:00 Dextrose (D50w Syringe) 50 ml Q15M PRN IV DECREASED GLUCOSE; Start 12/06/16 at 16:00 Glucagon (Glucagen) 1 mg Q15M PRN IM DECREASED GLUCOSE; Start 12/06/16 at 16:00 Glucose (Glutose) 15 gm Q15M PRN BUCCAL DECREASED GLUCOSE; Start 12/06/16 at 16 :00 Acetaminophen (Tylenol Tab) 650 mg Q4H PRN PO PAIN; Start 12/06/16 at 17:00 Magnesium Hydroxide (Milk Of Mag) 30 ml BID PRN PO CONSTIPATION; Start at 17:00 Lactulose (Enulose) 20 gm DAILY PRN PO CONSTIPATION; Start 12/06/16 at 17:00 Oxycodone HCl (Oxycontin) 10 mg Q8 PO Last administered on 12/17/16 05:38; Admin Dose 10 MG; Start 12/07/16 at 11:30 Bisacodyl (Dulcolax Supp) 10 mg DAILY [place] ; Start 12/08/16 at 09:00 Phenazopyridine HCl 100 mg 100 mg TID PO Last administered on 12/17/16 09:28; Admin Dose 100 MG; Start 12/12/16 at 21:00 Caspofungin/ Sodium Chloride (Cancidas/NS) 250 ml @ 250 mls/hr Q24H IVPB Last administered on 12/16/16 18:44; Admin Dose 250 MLS/HR; Start 12/13/16 at 17:00 Hydromorphone HCl (Dilaudid) 0.5 mg Q3H PRN IV PAIN Last administered on 12/17/16 09:37; Admin Dose 0.5 MG; Start 12/13/16 at 11:10 Senna (Senokot) 2 tab HS PO Last administered on 12/16/16 21:11; Admin Dose 2 TAB; Start 12/13/16 at 21:00 Warfarin Sodium (Coumadin) 5 mg DAILY@17 PO Last administered on 12/16/16t 18:44 ; Admin Dose 5 MG; Start 12/15/16 at 17:00 Assessment/Plan Additional Assessment/Plan Rehabilitation-T7 incomplete paraplegia due to epidural abscess/osteomyelitis- status post Thoracic lami drainage of abscess Patient motivated for activities continue treatment plan Pulmonary -post operative respiratory failure requiring intubation, with eventual extubation, currently stable Toxic metabolic encephalopathy-continue treatment plan, cognition improving Diabetes Mellitus type 2 ESRD on HD Afib Coronary Artery Disease history of DVT Hypertension Hypercholesterolemia COPD history of CVA anxiety depression ALINE CORREIA MD Dec 17, 2016 10:35
[2016-12-17] MEDS: CHOLECALCIFEROL 400 UNITS TAB PO SCH (11:01)
[2016-12-17] MEDS: LOSARTAN 50 MG TAB PO SCH ×2 (11:05→20:50)
[2016-12-17] MEDS: METOPROLOL 100 MG TAB PO SCH ×2 (11:05→20:49)
[2016-12-17] MEDS: AMLODIPINE 5 MG TAB PO SCH ×2 (11:06→20:51)
--- NOTE | 2016-12-17 12:28 | PN ---
DATE: 12/17/2016 SUBJECTIVE DATA: The patient is stable. No events overnight. No fevers, chills, nausea, vomiting. OBJECTIVE DATA: VITAL SIGNS: Blood pressure 125/60, respirations 18, pulse 83, temperature 97.8. HEENT: Head is normocephalic. NECK: Supple. HEART: Regular rate. LUNGS: Show diminished breath sounds at the base. ABDOMEN: Soft, nontender to palpation. No rebound or guarding. EXTREMITIES: Negative for clubbing, cyanosis. No edema. DERMATOLOGIC: Clean. No rashes. MUSCULOSKELETAL: No joint effusion. NEUROLOGIC: Unchanged exam. MEDICATIONS: Reviewed. LABORATORY AND DIAGNOSTIC DATA: Show white count 9.2, hemoglobin 8.1, crit 27.3, platelet count 431. ASSESSMENT AND PLAN: 1. End-stage renal disease. The patient had hemodialysis yesterday, tolerated well. Plan for dialysis tomorrow. 2. Anemia. Monitor H and H levels. 3. Mineral bone disorder. Continue to monitor calcium and phosphorus levels. 4. Hypertension. Continue current blood pressure regimen. 5. Osteomyelitis, status post laminectomy. The patient has completed antibiotic course. Continue to monitor. Follow up with Infectious Disease. 6. Mild leukocytosis, improved. 7. T7 paraplegia, incomplete. Continue physical therapy. 8. History of deep venous thrombosis. Continue Coumadin. INR at goal. 9. Paroxysmal atrial fibrillation. Currently in sinus rhythm. Continue medical management. 10. Diabetes. Continue Accu-Cheks and insulin sliding scale. 11. Encephalopathy, improved. 12. History of cerebrovascular accident. Continue medical management. 13. History of chronic obstructive pulmonary disease. Continue current treatment plan. 14. Gastrointestinal and deep venous thrombosis prophylaxis. Continue proton pump inhibitor and Coumadin. Dictated By: Buck Seals DO /saul/josee /Document#: [id number]
[2016-12-17] MEDS: POLYETHYLENE GLYCOL 17 GM PACKET PO SCH (13:31)
[2016-12-17] MEDS: CASPOFUNGIN 50 MG in SOD CHLORIDE 0.9% 250 ML IVPB SCH (19:03)
[2016-12-17] MEDS: WARFARIN 5 MG TAB PO SCH (19:08)
[2016-12-17 20:00] VITALS: BP 135/64; RESP 18
[2016-12-17] MEDS: ATORVASTATIN 80 MG TAB PO SCH (20:49)
[2016-12-17] MEDS: SENNA TAB PO SCH (20:50)
[2016-12-18] VITALS (10 sets, daily range): BP systolic 119–146; BP diastolic 57–84; PULSE 77–85; RESP 18
[2016-12-18] MEDS: HYDROmorphONE 1 MG/ML SYG IV PRN ×3 (02:29→12:46)
[2016-12-18] MEDS: PANTOPRAZOLE (EC) 40 MG TAB PO SCH (06:28)
[2016-12-18] MEDS: oxyCODONE (CR) 10 MG TAB [oxyCONTIN] PO SCH ×3 (06:28→23:10)
[2016-12-18] MEDS: GABAPENTIN 400 MG CAP PO SCH ×3 (06:29→23:10)
[2016-12-18 07:58] LABS: INR 3.18; PROTIME 33.1 Sec (12.2-14.2); PT RATIO 2.6
[2016-12-18] MEDS: Insulin ASPART slide scale (Novolog) SC SCH ×3 (08:00→20:38)
[2016-12-18] MEDS: POLYETHYLENE GLYCOL 17 GM PACKET PO SCH (08:20)
[2016-12-18] MEDS: DOCUSATE SODIUM 100 MG CAP PO SCH ×2 (08:23→20:25)
[2016-12-18] MEDS: CHOLECALCIFEROL 400 UNITS TAB PO SCH (08:23)
[2016-12-18] MEDS: VITAMIN B COMPLEX/VIT C CAP PO SCH ×2 (08:23→20:25)
[2016-12-18] MEDS: SEVELAMER 800 MG TAB PO SCH ×3 (08:23→20:24)
[2016-12-18] MEDS: SERTRALINE 100 MG TAB PO SCH (08:23)
[2016-12-18] MEDS: LOSARTAN 50 MG TAB PO SCH ×2 (08:38→20:30)
[2016-12-18] MEDS: AMLODIPINE 5 MG TAB PO SCH ×2 (08:39→20:32)
[2016-12-18] MEDS: METOPROLOL 100 MG TAB PO SCH ×2 (08:39→20:32)
[2016-12-18] MEDS: BISACODYL 10 MG SUPP PR SCH (08:40)
[2016-12-18] MEDS: PHENAZOPYRIDINE 100 MG TAB PO SCH ×3 (09:00→20:25)
--- NOTE | 2016-12-18 10:34 | PN ---
DATE: 12/18/2016 SUBJECTIVE DATA: The patient is stable. Patient's pain is controlled. Scheduled for hemodialysis today. No other events noted. OBJECTIVE DATA: VITAL SIGNS: Blood pressure 119/57, respirations 18, pulse 65, temperature 98.6. HEENT: Head is normocephalic. NECK: Supple. HEART: Regular rate. LUNGS: Diminished breath sounds at the base. ABDOMEN: Soft, nontender to palpation. No rebound or guarding. EXTREMITIES: Negative for clubbing, cyanosis. No edema. DERMATOLOGIC: No rashes. MUSCULOSKELETAL: No joint effusion. NEUROLOGIC: No change in exam. MEDICATIONS: Reviewed. LABORATORY AND DIAGNOSTIC DATA: Reviewed. The patient's INR 3.18. ASSESSMENT AND PLAN: 1. End-stage renal disease. Plan for hemodialysis today for 3 hours, 3K bath, calcium 2.5, ultrafiltration as tolerated. 2. Anemia. Monitor H and H levels. 3. Mineral bone disorder. Monitor calcium and phosphorus levels. 4. Hypertension. Continue current blood pressure regimen. 5. History of osteomyelitis, status post laminectomy. The patient is completing antibiotic course. Continue to monitor. Follow up infectious disease. 6. Leukocytosis, resolved. 7. T7 paraplegia, incomplete. Continue physical therapy. 8. History of deep vein thrombosis. Continue Coumadin. INR is mildly above goal. Coumadin being just by Cardiology. 9. Paroxysmal atrial fibrillation. Currently sinus rhythm. Continue Coumadin. 10. Diabetes. Continue Accu-Chek and sliding scale. 11. Encephalopathy, improving. 12. History of cerebrovascular accident. Continue medical management. 13. History of chronic obstructive pulmonary disease. Continue current treatment plan. 14. Gastrointestinal and deep venous thrombosis prophylaxis. Continue PPI and Coumadin. Dictated By: Buck Selas DO /saul/ec /Document#: [id number]
[2016-12-18] MEDS: ALBUTEROL/IPRATROPIUM (NEB) 3 ML AMP HHN SCH ×3 (12:15→20:04)
--- NOTE | 2016-12-18 14:39 | CONS ---
Date/Time of Note Date/Time of Note DATE: 12/18/16 TIME: 14:37 Consult Date/Type/Reason Admit Date/Time Dec 06, 2016 at 10:56 Type of Consultation: cardiology Subjective Patient comfortable this morning Objective Lungs clear Abdomen soft Moderate max Vital Signs Date Time Temp Pulse Resp B/P Pulse Ox O2 Delivery O2 Flow Rate FiO2 12/18/16 13:02 2.0 12/18/16 13:01 85 20 Nasal Cannula 12/18/16 07:57 98.6 119/57 97 12/15/16 14:10 21 Intake and Output 12/17/16 12/17/16 12/18/16 15:00 23:00 07:00 Intake Total 930 ml 800 ml Balance 930 ml 800 ml Results/Medications Result Diagram: 12/17/16 0610 12/14/16 0650 Results 24 hrs Laboratory Tests Test 12/17/16 17:50 12/17/16 21:42 12/18/16 02:25 12/18/16 06:37 Bedside Glucose 118 187 114 Prothrombin Time 33.1 H Prothrombin Time Ratio 2.6 INR International Normalized Ratio 3.18 Test 12/18/16 07:53 12/18/16 12:02 Bedside Glucose 106 105 Medications Current Medications Sertraline HCl (Zoloft) 100 mg DAILY PO Last administered on 12/18/16 08:23; Admin Dose 100 MG; Start 12/07/16 at 09:00 Amlodipine Besylate (Norvasc) 5 mg BID PO Last administered on 12/17/16 20:51 ; Admin Dose 5 MG; Start 12/06/16 at 21:00 Losartan Potassium (Cozaar) 50 mg BID PO Last administered on 12/17/16 20:50; Admin Dose 50 MG; Start 12/06/16 at 21:00 Atorvastatin Calcium (Lipitor) 80 mg DAILY@21 PO Last administered on 20:49; Admin Dose 80 MG; Start 12/06/16 at 21:00 Polyethylene Glycol (Miralax) 17 gm DAILY PO Last administered on 12/18/16 08: 20; Admin Dose 17 GM; Start 12/07/16 at 09:00 Docusate Sodium (Colace) 100 mg BID PO Last administered on 12/18/16 08:23; Admin Dose 100 MG; Start 12/06/16 at 21:00 Metoprolol Tartrate (Lopressor) 100 mg BID PO Last administered on 12/17/16 20 :49; Admin Dose 100 MG; Start 12/06/16 at 21:00 Vitamin B Complex/ Vitamin C (Berocca) 1 cap BID PO Last administered on 08:23; Admin Dose 1 CAP; Start 12/06/16 at 21:00 Cholecalciferol (Vitamin D) 400 units DAILY PO Last administered on 12/18/16 08:23; Admin Dose 400 UNITS; Start 12/07/16 at 09:00 Pantoprazole (Protonix Tab) 40 mg DAILY@06 PO Last administered on 12/18/16 06 :28; Admin Dose 40 MG; Start 12/07/16 at 06:00 Gabapentin (Neurontin) 400 mg Q8 PO Last administered on 12/18/16 06:29; Admin Dose 400 MG; Start 12/06/16 at 22:00 Hydralazine HCl (Apresoline) 50 mg TID PO Last administered on 12/17/16 20:51 ; Admin Dose 50 MG; Start 12/06/16 at 21:00 Methocarbamol (Robaxin) 500 mg TID PRN PO MUSCLE SPASMS Last administered on 10:30; Admin Dose 500 MG; Start 12/06/16 at 17:00 Diphenhydramine HCl (Benadryl) 25 mg Q6H PRN PO ITCHING Last administered on 10:33; Admin Dose 25 MG; Start 12/06/16 at 15:30 Miscellaneous Information 1 ea NOTE XX ; Start 12/06/16 at 16:00 Glucose (Glutose) 15 gm Q15M PRN PO DECREASED GLUCOSE; Start 12/06/16 at 16:00 Glucose (Glutose) 22.5 gm Q15M PRN PO DECREASED GLUCOSE; Start 12/06/16 at 16: 00 Dextrose (D50w Syringe) 25 ml Q15M PRN IV DECREASED GLUCOSE; Start 12/06/16 at 16:00 Dextrose (D50w Syringe) 50 ml Q15M PRN IV DECREASED GLUCOSE; Start 12/06/16 at 16:00 Glucagon (Glucagen) 1 mg Q15M PRN IM DECREASED GLUCOSE; Start 12/06/16 at 16:00 Glucose (Glutose) 15 gm Q15M PRN BUCCAL DECREASED GLUCOSE; Start 12/06/16 at 16 :00 Acetaminophen (Tylenol Tab) 650 mg Q4H PRN PO PAIN; Start 12/06/16 at 17:00 Magnesium Hydroxide (Milk Of Mag) 30 ml BID PRN PO CONSTIPATION; Start at 17:00 Lactulose (Enulose) 20 gm DAILY PRN PO CONSTIPATION; Start 12/06/16 at 17:00 Oxycodone HCl (Oxycontin) 10 mg Q8 PO Last administered on 12/18/16 06:28; Admin Dose 10 MG; Start 12/07/16 at 11:30 Bisacodyl (Dulcolax Supp) 10 mg DAILY [place] ; Start 12/08/16 at 09:00 Phenazopyridine HCl 100 mg 100 mg TID PO Last administered on 12/18/16 12:46; Admin Dose 100 MG; Start 12/12/16 at 21:00 Caspofungin/ Sodium Chloride (Cancidas/NS) 250 ml @ 250 mls/hr Q24H IVPB Last administered on 12/17/16 19:03; Admin Dose 250 MLS/HR; Start 12/13/16 at 17:00 Hydromorphone HCl (Dilaudid) 0.5 mg Q3H PRN IV PAIN Last administered on 12/18/16 12:46; Admin Dose 0.5 MG; Start 12/13/16 at 11:10 Senna (Senokot) 2 tab HS PO Last administered on 12/17/16 20:50; Admin Dose 2 TAB; Start 12/13/16 at 21:00 Warfarin Sodium (Coumadin) 5 mg DAILY@17 PO Last administered on 12/17/16 19: 08; Admin Dose 5 MG; Start 12/15/16 at 17:00; Status Future hold Assessment/Plan Additional Assessment/Plan Rehabilitation-T7 incomplete paraplegia due to epidural abscess/osteomyelitis- status post Thoracic lami drainage of abscess Increase activities as tolerated Pulmonary -post operative respiratory failure requiring intubation, with eventual extubation, currently stable Toxic metabolic encephalopathy-continue treatment plan, cognition improving Diabetes Mellitus type 2 ESRD on HD Afib Coronary Artery Disease history of DVT Hypertension Hypercholesterolemia COPD history of CVA anxiety depression ALINE CORREIA MD Dec 18, 2016 14:38
--- NOTE | 2016-12-18 15:38 | CONS ---
Date/Time of Note Date/Time of Note DATE: 12/18/16 TIME: 15:37 Consult Date/Type/Reason Admit Date/Time Dec 06, 2016 at 10:56 Initial Consult Date 12/10/16 Type of Consultation: cardiology Subjective CARDIOLOGY FOLLOW UP d/w staff. pt still c/o left hip pain now. She was able to do PT this am. but is tired this pm no chest pain or pressure. no palpitations or bleeding she has fatigue no bleeding. OBJECTIVE: General: no acute distress. Obese female. HEENT: NC/AT. pupils are equal. round. NECK: NO JVD. no stridor. CV: RRR. systolic murmur; no gallop or rubs. chest: s/p R HD access in place. PULM: no wheezing or rhonchi. GI: SOFT, NT, ND, no rebound or guarding. Obese Extremity: + B/L LE edema. no clubbing. neuro: drowsy but responds appropriately Psych: calm and pleasant rectal: deferred Objective Vital Signs Date Time Temp Pulse Resp B/P Pulse Ox O2 Delivery O2 Flow Rate FiO2 12/18/16 13:02 2.0 12/18/16 13:01 85 20 Nasal Cannula 12/18/16 07:57 98.6 119/57 97 12/15/16 14:10 21 Intake and Output 12/17/16 12/17/16 12/18/16 15:00 23:00 07:00 Intake Total 930 ml 800 ml Balance 930 ml 800 ml Results/Medications Result Diagram: 12/17/16 0610 12/14/16 0650 Results 24 hrs Laboratory Tests Test 12/17/16 17:50 12/17/16 21:42 12/18/16 02:25 12/18/16 06:37 Bedside Glucose 118 187 114 Prothrombin Time 33.1 H Prothrombin Time Ratio 2.6 INR International Normalized Ratio 3.18 Test 12/18/16 07:53 12/18/16 12:02 Bedside Glucose 106 105 Medications Current Medications Sertraline HCl (Zoloft) 100 mg DAILY PO Last administered on 12/18/16 08:23; Admin Dose 100 MG; Start 12/07/16 at 09:00 Amlodipine Besylate (Norvasc) 5 mg BID PO Last administered on 12/17/16 20:51 ; Admin Dose 5 MG; Start 12/06/16 at 21:00 Losartan Potassium (Cozaar) 50 mg BID PO Last administered on 12/17/16 20:50; Admin Dose 50 MG; Start 12/06/16 at 21:00 Atorvastatin Calcium (Lipitor) 80 mg DAILY@21 PO Last administered on 20:49; Admin Dose 80 MG; Start 12/06/16 at 21:00 Polyethylene Glycol (Miralax) 17 gm DAILY PO Last administered on 12/18/16 08: 20; Admin Dose 17 GM; Start 12/07/16 at 09:00 Docusate Sodium (Colace) 100 mg BID PO Last administered on 12/18/16 08:23; Admin Dose 100 MG; Start 12/06/16 at 21:00 Metoprolol Tartrate (Lopressor) 100 mg BID PO Last administered on 12/17/16 20 :49; Admin Dose 100 MG; Start 12/06/16 at 21:00 Vitamin B Complex/ Vitamin C (Berocca) 1 cap BID PO Last administered on 08:23; Admin Dose 1 CAP; Start 12/06/16 at 21:00 Cholecalciferol (Vitamin D) 400 units DAILY PO Last administered on 12/18/16 08:23; Admin Dose 400 UNITS; Start 12/07/16 at 09:00 Pantoprazole (Protonix Tab) 40 mg DAILY@06 PO Last administered on 12/18/16 06 :28; Admin Dose 40 MG; Start 12/07/16 at 06:00 Gabapentin (Neurontin) 400 mg Q8 PO Last administered on 12/18/16 06:29; Admin Dose 400 MG; Start 12/06/16 at 22:00 Hydralazine HCl (Apresoline) 50 mg TID PO Last administered on 12/17/16 20:51 ; Admin Dose 50 MG; Start 12/06/16 at 21:00 Methocarbamol (Robaxin) 500 mg TID PRN PO MUSCLE SPASMS Last administered on 10:30; Admin Dose 500 MG; Start 12/06/16 at 17:00 Diphenhydramine HCl (Benadryl) 25 mg Q6H PRN PO ITCHING Last administered on 10:33; Admin Dose 25 MG; Start 12/06/16 at 15:30 Miscellaneous Information 1 ea NOTE XX ; Start 12/06/16 at 16:00 Glucose (Glutose) 15 gm Q15M PRN PO DECREASED GLUCOSE; Start 12/06/16 at 16:00 Glucose (Glutose) 22.5 gm Q15M PRN PO DECREASED GLUCOSE; Start 12/06/16 at 16: 00 Dextrose (D50w Syringe) 25 ml Q15M PRN IV DECREASED GLUCOSE; Start 12/06/16 at 16:00 Dextrose (D50w Syringe) 50 ml Q15M PRN IV DECREASED GLUCOSE; Start 12/06/16 at 16:00 Glucagon (Glucagen) 1 mg Q15M PRN IM DECREASED GLUCOSE; Start 12/06/16 at 16:00 Glucose (Glutose) 15 gm Q15M PRN BUCCAL DECREASED GLUCOSE; Start 12/06/16 at 16 :00 Acetaminophen (Tylenol Tab) 650 mg Q4H PRN PO PAIN; Start 12/06/16 at 17:00 Magnesium Hydroxide (Milk Of Mag) 30 ml BID PRN PO CONSTIPATION; Start at 17:00 Lactulose (Enulose) 20 gm DAILY PRN PO CONSTIPATION; Start 12/06/16 at 17:00 Oxycodone HCl (Oxycontin) 10 mg Q8 PO Last administered on 12/18/16 06:28; Admin Dose 10 MG; Start 12/07/16 at 11:30 Bisacodyl (Dulcolax Supp) 10 mg DAILY ID ; Start 12/08/16 at 09:00 Phenazopyridine HCl 100 mg 100 mg TID PO Last administered on 12/18/16 12:46; Admin Dose 100 MG; Start 12/12/16 at 21:00 Caspofungin/ Sodium Chloride (Cancidas/NS) 250 ml @ 250 mls/hr Q24H IVPB Last administered on 12/17/16 19:03; Admin Dose 250 MLS/HR; Start 12/13/16 at 17:00 Hydromorphone HCl (Dilaudid) 0.5 mg Q3H PRN IV PAIN Last administered on 12/18/16 12:46; Admin Dose 0.5 MG; Start 12/13/16 at 11:10 Senna (Senokot) 2 tab HS PO Last administered on 12/17/16 20:50; Admin Dose 2 TAB; Start 12/13/16 at 21:00 Warfarin Sodium (Coumadin) 5 mg DAILY@17 PO Last administered on 12/17/16 19: 08; Admin Dose 5 MG; Start 12/15/16 at 17:00; Status Future hold Assessment/Plan Chief Complaint/Hosp Course 1. History of P-atrial fibrillation. Currently in NSR 2. History of CVA 3. Hypertension. 4. Renal failure, on dialysis. 5. History of dyslipidemia. 6. History of multiple infections. 7. Discitis. 8. Severe anemia. 9. History of deep vein thrombosis. 10. hyper K: to be corrected by HD. Adjust coumadin to goal INR 2-3. it has been stable over the past few dasy will repeat INR on wednesday again coumadin 5 mg today . ECHO shows normal EF AND LA size. cont betablocker. HD as per renal Cont PT as tolerated. pain management as per IM THANK YOU Problems: TAMERA BAILEY MD Dec 18, 2016 15:38
--- NOTE | 2016-12-18 17:01 | CONS ---
Date/Time of Note Date/Time of Note DATE: 12/18/16 TIME: 16:35 Assessment/Plan Assessment/Plan Chief Complaint/Hosp Course ID PROGRESS NOTE CURRENT ABX: Cancidas #6=> DC today s/p Fosfomycin 3gm PO x1 12/12 DC Keflex 12/13 24H INTERVAL SUMMARY * No fevers, VSS, she was up walking today with PTx, still has back pain; however her mobility and mentation improved with reduction in pain med dose. She has chronic pain w/recent T-spine surgery for discitis/osteomyelitis ==> She completed 6 weeks course of IV ABX. She complained to covering MD about intractable back pain which prompted ID consult to evaluate for recurrent osteomyelitis, as she also had mild leukocytosis, SIRS. Her Urine Cx was (+) and now treated. SIRS resolved. * She is not a candidate for MRI to evaluate for residual infection of the spine due to presence of hardware. * No fevers, WBC normalized post ABC for UTI * MICRO: * (-)MRSA Nares * 12/11/17 UA (+) <10,000 GNR + <10,000 Yeast => she has been treated for GNR w/ Fosfomycin x1 12/12 + Cancidas for yeast * 12/11 Urine Cx URINE URINE CULTURE Final Organism 1 JAMILAH ALBICANS COLONY COUNT <10,000 CFU/ml Organism 2 PROTEUS MIRABILIS COLONY COUNT <10,000 CFU/ml ID ASSESSMENT 51 yo F w/PMHx HTN, HLD, CAD, Afib, CVA, DVT, Psych Dx: Anxiety/Depression admit to [facility] with: 1. T7 incomplete paraplegia due to epidural abscess/osteomyelitis-status post thoracic laminectomy, drainage of abscess, with impaired mobility and ADLs. * Patient has completed full course of ABX for osteomyelitis, per Dr. Samaniego note = continue to monitor OFF ABX * Back pain persisting = per staff Opioid seeking behavior; her pain meds were cut in half due to persistent desire to stay in bed and sleep without participation in rehab, according to staff/provider she did not even notice pain med cut in half. She is now more alert and participating in REHAB PTx up walking today. 2. SIRS w/leukocytosis == RESOLVED with ABX & Antifungal Rs for UTI * URINE Cx 12/11 (+) Funguria (+)GNR ==Early UTI * URINE CULTURE Final Organism 1 JAMILAH ALBICANS COLONY COUNT <10,000 CFU/ml Organism 2 PROTEUS MIRABILIS COLONY COUNT <10,000 CFU/ml 3. Status post respiratory failure. 4. COPD 5. Toxic metabolic encephalopathy w/impairments in short term memory/ ? Dysphagia = Aspiration pneumonitis risk 6. Diabetes Mellitus type 2 7. ESRD on hemodialysis per nephrology. 8. Back pain (-)MRSA Nares INVASIVES: R-chest HD cath w/Venous pigtail CURRENT ABX: Cancidas #5=> DC 12/18 s/p Fosfomycin 3gm PO x1 12/12 DC Keflex 12/13 ID RECOMMENDATIONS 1. DC Cancidas -- has received adequate Rx for concern low colony count bacteruria/funguria 2. The etiology of her intractable back pain is note compelling for recurrent discitis/osteomyelitis * She has pattern of opioid drug seeking behavior, and reluctance to get OOB and participate in REHAB activities when higher dose of pain meds onboard. Her pain meds where cut back; per provider she did not even notice the difference. She is now more mentally alert, up out of bed participating in PTx rehab. * She is not a candidate for MRI spine due to presence of hardware. * If sxs compelling for recurrent discitis/osteomyelitis occur -> She can be sent for 1) 3-Phase Bone Scan to evaluate inflammation; followed by 2) Gallium Scan to determine if there are any sites of active infection rather than non- specific inflammation. 3. Dr. Samaniego recommending to monitor for now. * If she spikes fevers > 101.5, then obtain blood cultures peripherally and also via the HD catheter. Remove the catheter in the event she develops fevers , bacteremia, sepsis. * The indwelling right subclavian temporary HD catheter will remain the likely source of any recurrent sepsis. * Consider PermCath placement and AVF for medical terminologist HD access * Above recommendations discuss w/Dr. Samaniego who concurs * Will sign off--please feel notify Dr. Samaniego or Nini Velázquez NP in the event she becomes septic and/or additional ID recommendations desired. . Problems: Consultation Date/Type/Reason Admit Date/Time Dec 06, 2016 at 10:56 Initial Consult Date 12/10/16 Type of Consultation: ID Exam/Review of Systems Vital Signs Vitals Vital Signs Date Time Temp Pulse Resp B/P Pulse Ox O2 Delivery O2 Flow Rate FiO2 12/18/16 13:02 2.0 12/18/16 13:01 85 20 Nasal Cannula 12/18/16 07:57 98.6 119/57 97 12/15/16 14:10 21 Intake and Output 12/17/16 12/17/16 12/18/16 15:00 23:00 07:00 Intake Total 930 ml 800 ml Balance 930 ml 800 ml Results Result Diagram: 12/17/16 0610 12/14/16 0650 Results 24 hrs Laboratory Tests Test 12/17/16 17:50 12/17/16 21:42 12/18/16 02:25 12/18/16 06:37 Bedside Glucose 118 187 114 Prothrombin Time 33.1 H Prothrombin Time Ratio 2.6 INR International Normalized Ratio 3.18 Test 12/18/16 07:53 12/18/16 12:02 Bedside Glucose 106 105 Medications Medications Current Medications Sertraline HCl (Zoloft) 100 mg DAILY PO Last administered on 12/18/16 08:23; Admin Dose 100 MG; Start 12/07/16 at 09:00 Amlodipine Besylate (Norvasc) 5 mg BID PO Last administered on 12/17/16 20:51 ; Admin Dose 5 MG; Start 12/06/16 at 21:00 Losartan Potassium (Cozaar) 50 mg BID PO Last administered on 12/17/16 20:50; Admin Dose 50 MG; Start 12/06/16 at 21:00 Atorvastatin Calcium (Lipitor) 80 mg DAILY@21 PO Last administered on 20:49; Admin Dose 80 MG; Start 12/06/16 at 21:00 Polyethylene Glycol (Miralax) 17 gm DAILY PO Last administered on 12/18/16 08: 20; Admin Dose 17 GM; Start 12/07/16 at 09:00 Docusate Sodium (Colace) 100 mg BID PO Last administered on 12/18/16 08:23; Admin Dose 100 MG; Start 12/06/16 at 21:00 Metoprolol Tartrate (Lopressor) 100 mg BID PO Last administered on 12/17/16 20 :49; Admin Dose 100 MG; Start 12/06/16 at 21:00 Vitamin B Complex/ Vitamin C (Berocca) 1 cap BID PO Last administered on 08:23; Admin Dose 1 CAP; Start 12/06/16 at 21:00 Cholecalciferol (Vitamin D) 400 units DAILY PO Last administered on 12/18/16 08:23; Admin Dose 400 UNITS; Start 12/07/16 at 09:00 Pantoprazole (Protonix Tab) 40 mg DAILY@06 PO Last administered on 12/18/16 06 :28; Admin Dose 40 MG; Start 12/07/16 at 06:00 Gabapentin (Neurontin) 400 mg Q8 PO Last administered on 12/18/16 06:29; Admin Dose 400 MG; Start 12/06/16 at 22:00 Hydralazine HCl (Apresoline) 50 mg TID PO Last administered on 12/17/16 20:51 ; Admin Dose 50 MG; Start 12/06/16 at 21:00 Methocarbamol (Robaxin) 500 mg TID PRN PO MUSCLE SPASMS Last administered on 10:30; Admin Dose 500 MG; Start 12/06/16 at 17:00 Diphenhydramine HCl (Benadryl) 25 mg Q6H PRN PO ITCHING Last administered on 10:33; Admin Dose 25 MG; Start 12/06/16 at 15:30 Miscellaneous Information 1 ea NOTE XX ; Start 12/06/16 at 16:00 Glucose (Glutose) 15 gm Q15M PRN PO DECREASED GLUCOSE; Start 12/06/16 at 16:00 Glucose (Glutose) 22.5 gm Q15M PRN PO DECREASED GLUCOSE; Start 12/06/16 at 16: 00 Dextrose (D50w Syringe) 25 ml Q15M PRN IV DECREASED GLUCOSE; Start 12/06/16 at 16:00 Dextrose (D50w Syringe) 50 ml Q15M PRN IV DECREASED GLUCOSE; Start 12/06/16 at 16:00 Glucagon (Glucagen) 1 mg Q15M PRN IM DECREASED GLUCOSE; Start 12/06/16 at 16:00 Glucose (Glutose) 15 gm Q15M PRN BUCCAL DECREASED GLUCOSE; Start 12/06/16 at 16 :00 Acetaminophen (Tylenol Tab) 650 mg Q4H PRN PO PAIN; Start 12/06/16 at 17:00 Magnesium Hydroxide (Milk Of Mag) 30 ml BID PRN PO CONSTIPATION; Start at 17:00 Lactulose (Enulose) 20 gm DAILY PRN PO CONSTIPATION; Start 12/06/16 at 17:00 Oxycodone HCl (Oxycontin) 10 mg Q8 PO Last administered on 12/18/16 06:28; Admin Dose 10 MG; Start 12/07/16 at 11:30 Bisacodyl (Dulcolax Supp) 10 mg DAILY [place] ; Start 12/08/16 at 09:00 Phenazopyridine HCl 100 mg 100 mg TID PO Last administered on 12/18/16 12:46; Admin Dose 100 MG; Start 12/12/16 at 21:00 Caspofungin/ Sodium Chloride (Cancidas/NS) 250 ml @ 250 mls/hr Q24H IVPB Last administered on 12/17/16 19:03; Admin Dose 250 MLS/HR; Start 12/13/16 at 17:00 Hydromorphone HCl (Dilaudid) 0.5 mg Q3H PRN IV PAIN Last administered on 12/18/16 12:46; Admin Dose 0.5 MG; Start 12/13/16 at 11:10 Senna (Senokot) 2 tab HS PO Last administered on 12/17/16 20:50; Admin Dose 2 TAB; Start 12/13/16 at 21:00 Warfarin Sodium (Coumadin) 5 mg DAILY@17 PO Last administered on 12/17/16 19: 08; Admin Dose 5 MG; Start 12/15/16 at 17:00; Status Future ILIANA Roth [employer] Dec 18, 2016 17:00
[2016-12-18] MEDS: ATORVASTATIN 80 MG TAB PO SCH (20:26)
[2016-12-18] MEDS: METHOCARBAMOL 500 MG TAB PO PRN (20:30)
[2016-12-18] MEDS: SENNA TAB PO SCH (20:38)
[2016-12-19] MEDS: HYDROmorphONE 1 MG/ML SYG IV PRN ×3 (01:51→21:16)
[2016-12-19 02:00] VITALS: BP 122/60; RESP 18
[2016-12-19] MEDS: PANTOPRAZOLE (EC) 40 MG TAB PO SCH (06:42)
[2016-12-19] MEDS: GABAPENTIN 400 MG CAP PO SCH ×3 (06:42→22:00)
[2016-12-19] MEDS: oxyCODONE (CR) 10 MG TAB [oxyCONTIN] PO SCH ×4 (06:43→22:00)
[2016-12-19] MEDS: Insulin ASPART slide scale (Novolog) SC SCH ×4 (07:05→21:00)
[2016-12-19 07:30] VITALS: BP 130/61; RESP 20
[2016-12-19 07:36] LABS: INR 2.79; PROTIME 29.8 Sec (12.2-14.2); PT RATIO 2.3
[2016-12-19] MEDS: SEVELAMER 800 MG TAB PO SCH ×3 (08:13→18:07)
[2016-12-19] MEDS: SERTRALINE 100 MG TAB PO SCH (09:00)
[2016-12-19] MEDS: POLYETHYLENE GLYCOL 17 GM PACKET PO SCH (09:00)
[2016-12-19] MEDS: BISACODYL 10 MG SUPP PR SCH (09:00)
[2016-12-19] MEDS: ALBUTEROL/IPRATROPIUM (NEB) 3 ML AMP HHN SCH ×3 (09:31→19:59)
--- NOTE | 2016-12-19 10:05 | PN ---
Date/Time of Note Date/Time of Note DATE: 12/19/16 TIME: 10:04 Assessment/Plan VTE Prophylaxis VTE Prophylaxis Intervention: other Lines/Catheters IV Catheter Type (from Nrsg): DORIS CATH Urinary Cath still in place: No Assessment/Plan Assessment/Plan 1. 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 Medical management per infectious disease. Pain stable and appears controlled. Continue PT/OT. Bed mobility rolling with SBA, mod assist for supine to sit and transfers. 2. Status post respiratory failure. Monitor pulmonary status. 3. Toxic metabolic encephalopathy. Continue ST for cognitive training. 4. Diabetes Mellitus type 2. Blood sugars controlled. Continue medical management per internal medicine. 5. End stage renal disease. Continue hemodialysis per nephrology. 6. PAfib. Continue medical management per cardiology. 7. Coronary Artery Disease. Continue medical management. 8. History of DVT. Anticoagulation per internal medicine. 9. Hypertension. BP controlled. Continue medical management. 10. Hypercholesterolemia. Continue statin. 11. COPD. Stable. Continue breathing treatments. 12. History of CVA. Continue secondary stroke prevention. 13. Anxiety/depression. Continue medical management. 14. Anemia. Monitor hemoglobin/hematocrit, nephrology managing. Subjective 24 Hr Interval Summary Free Text/Dictation Rehab progress note Subjective/History: No acute overnight events per nursing staff. Reports pain stable. ROS: Denies chest pain, no shortness of breath, no abdominal pain, no vomiting, no chills, no constipation. Exam/Review of Systems Vital Signs Vitals Vital Signs Date Time Temp Pulse Resp B/P Pulse Ox O2 Delivery O2 Flow Rate FiO2 12/19/16 09:31 72 18 87 21 12/19/16 07:30 98.8 130/61 12/18/16 20:04 Nasal Cannula 2.0 Intake and Output 12/18/16 12/18/16 12/19/16 15:00 23:00 07:00 Intake Total 850 ml 1260 ml 350 ml Output Total 3600 ml Balance 850 ml -2340 ml 350 ml Exam General: Awake, alert, no acute distress, obese CV: Regular rate, S1S2 Lungs: Respirations are nonlabored, no wheezing or crackles Abdomen soft, nontender Extremities without cyanosis, no new swelling Neuro: No focal changes. Follows simple commands. Results Result Diagram: 12/17/16 0610 Results 24 hrs Laboratory Tests Test 12/18/16 12:02 12/18/16 20:18 12/19/16 06:10 12/19/16 07:45 Bedside Glucose 105 139 89 Prothrombin Time 29.8 H Prothrombin Time Ratio 2.3 INR International Normalized Ratio 2.79 Medications Medications Current Medications Sertraline HCl (Zoloft) 100 mg DAILY PO Last administered on 12/18/16 08:23; Admin Dose 100 MG; Start 12/07/16 at 09:00 Amlodipine Besylate (Norvasc) 5 mg BID PO Last administered on 12/18/16 20:32 ; Admin Dose 5 MG; Start 12/06/16 at 21:00 Losartan Potassium (Cozaar) 50 mg BID PO Last administered on 12/18/16 20:30; Admin Dose 50 MG; Start 12/06/16 at 21:00 Atorvastatin Calcium (Lipitor) 80 mg DAILY@21 PO Last administered on 20:26; Admin Dose 80 MG; Start 12/06/16 at 21:00 Polyethylene Glycol (Miralax) 17 gm DAILY PO Last administered on 12/18/16 08: 20; Admin Dose 17 GM; Start 12/07/16 at 09:00 Docusate Sodium (Colace) 100 mg BID PO Last administered on 12/18/16 20:25; Admin Dose 100 MG; Start 12/06/16 at 21:00 Metoprolol Tartrate (Lopressor) 100 mg BID PO Last administered on 12/18/16 20 :32; Admin Dose 100 MG; Start 12/06/16 at 21:00 Vitamin B Complex/ Vitamin C (Berocca) 1 cap BID PO Last administered on 20:25; Admin Dose 1 CAP; Start 12/06/16 at 21:00 Cholecalciferol (Vitamin D) 400 units DAILY PO Last administered on 12/18/16 08:23; Admin Dose 400 UNITS; Start 12/07/16 at 09:00 Pantoprazole (Protonix Tab) 40 mg DAILY@06 PO Last administered on 12/19/16 06 :42; Admin Dose 40 MG; Start 12/07/16 at 06:00 Gabapentin (Neurontin) 400 mg Q8 PO Last administered on 12/19/16 06:42; Admin Dose 400 MG; Start 12/06/16 at 22:00 Hydralazine HCl (Apresoline) 50 mg TID PO Last administered on 12/18/16 20:31 ; Admin Dose 50 MG; Start 12/06/16 at 21:00 Methocarbamol (Robaxin) 500 mg TID PRN PO MUSCLE SPASMS Last administered on 20:30; Admin Dose 500 MG; Start 12/06/16 at 17:00 Diphenhydramine HCl (Benadryl) 25 mg Q6H PRN PO ITCHING Last administered on 10:33; Admin Dose 25 MG; Start 12/06/16 at 15:30 Miscellaneous Information 1 ea NOTE XX ; Start 12/06/16 at 16:00 Glucose (Glutose) 15 gm Q15M PRN PO DECREASED GLUCOSE; Start 12/06/16 at 16:00 Glucose (Glutose) 22.5 gm Q15M PRN PO DECREASED GLUCOSE; Start 12/06/16 at 16: 00 Dextrose (D50w Syringe) 25 ml Q15M PRN IV DECREASED GLUCOSE; Start 12/06/16 at 16:00 Dextrose (D50w Syringe) 50 ml Q15M PRN IV DECREASED GLUCOSE; Start 12/06/16 at 16:00 Glucagon (Glucagen) 1 mg Q15M PRN IM DECREASED GLUCOSE; Start 12/06/16 at 16:00 Glucose (Glutose) 15 gm Q15M PRN BUCCAL DECREASED GLUCOSE; Start 12/06/16 at 16 :00 Acetaminophen (Tylenol Tab) 650 mg Q4H PRN PO PAIN; Start 12/06/16 at 17:00 Magnesium Hydroxide (Milk Of Mag) 30 ml BID PRN PO CONSTIPATION; Start at 17:00 Lactulose (Enulose) 20 gm DAILY PRN PO CONSTIPATION; Start 12/06/16 at 17:00 Oxycodone HCl (Oxycontin) 10 mg Q8 PO Last administered on 12/19/16 06:43; Admin Dose 10 MG; Start 12/07/16 at 11:30 Bisacodyl (Dulcolax Supp) 10 mg DAILY AR ; Start 12/08/16 at 09:00 Phenazopyridine HCl (Pyridium) 100 mg TID PO Last administered on 12/18/16 20: 25; Admin Dose 100 MG; Start 12/12/16 at 21:00 Hydromorphone HCl (Dilaudid) 0.5 mg Q3H PRN IV PAIN Last administered on 12/19/16 01:51; Admin Dose 0.5 MG; Start 12/13/16 at 11:10 Senna (Senokot) 2 tab HS PO Last administered on 12/17/16 20:50; Admin Dose 2 TAB; Start 12/13/16 at 21:00 Warfarin Sodium (Coumadin) 5 mg DAILY@17 PO Last administered on 12/17/16 19: 08; Admin Dose 5 MG; Start 12/15/16 at 17:00; Status Future hold FLASH GRACE Dec 19, 2016 10:05
[2016-12-19] MEDS: DOCUSATE SODIUM 100 MG CAP PO SCH ×3 (10:31→21:12)
[2016-12-19] MEDS: PHENAZOPYRIDINE 100 MG TAB PO SCH ×3 (10:31→21:13)
[2016-12-19] MEDS: CHOLECALCIFEROL 400 UNITS TAB PO SCH (10:31)
[2016-12-19] MEDS: VITAMIN B COMPLEX/VIT C CAP PO SCH ×2 (10:32→21:12)
[2016-12-19] MEDS: AMLODIPINE 5 MG TAB PO SCH ×2 (10:35→21:13)
[2016-12-19] MEDS: LOSARTAN 50 MG TAB PO SCH ×2 (10:36→21:13)
[2016-12-19] MEDS: METOPROLOL 100 MG TAB PO SCH ×2 (10:37→21:14)
--- NOTE | 2016-12-19 10:37 | PN ---
DATE: 12/19/2016 SUBJECTIVE DATA: Subjectively, the patient is stable. No events overnight. Patient had hemodialysis yesterday, tolerated well. No other acute events noted. OBJECTIVE DATA: VITAL SIGNS: Blood pressure 130/61, respirations 20, pulse 74, temperature 98.8. HEENT: Head is normocephalic. NECK: Supple. HEART: Regular rate. LUNGS: Diminished breath sounds base. ABDOMEN: Soft, nontender to palpation. No rebound or guarding. EXTREMITIES: Negative for clubbing, cyanosis, no edema. DERMATOLOGIC: No rashes. MUSCULOSKELETAL: No joint effusion. NEUROLOGIC: No change in exam. MEDICATIONS: Reviewed. LABORATORY AND DIAGNOSTIC DATA: Reviewed. No new labs. ASSESSMENT AND PLAN: 1. End-stage renal disease. The patient had hemodialysis yesterday, tolerated well. Plan for dialysis tomorrow. 2. Access. A consult was placed with Dr. Mack for Permacath placement and AV fistula placement. 3. Anemia. Continue to monitor hemoglobin and hematocrit levels. Will give Epogen with dialysis. 4. Mineral bone disorder. Monitor calcium and phosphorus levels. 5. Hypertension. Continue current blood pressure regimen. 6. Osteomyelitis. Status post-laminectomy. The patient has completed antibiotic course. 7. Urinary tract infection. Continue current antibiotic regimen. 8. T7 paraplegia, incomplete. Continue physical therapy. 9. History of deep vein thrombosis. The patient on Coumadin. INR is currently at goal. Will likely need to hold Coumadin in anticipation of possible PermCath placement. 10. Paroxysmal atrial fibrillation. Currently sinus rhythm. Continue medical management. 11. Diabetes. Continue Accu-Cheks and sliding scale. 12. Encephalopathy, improving. 13. History of cerebrovascular accident. 14. Chronic obstructive pulmonary disease. Continue plan. 15. Gastrointestinal and deep venous thrombosis prophylaxis. Continue proton pump inhibitor and on Coumadin at this time. Dictated By: Buck Seals DO /saul/gracy /Document#: [id number]
--- NOTE | 2016-12-19 11:16 | CONS ---
Date/Time of Note Date/Time of Note DATE: 12/19/16 TIME: 11:04 Assessment/Plan Assessment/Plan Additional Assessment/Plan Chronic kidney disease Patient is on Coumadin for atrial fibrillation We will stop the Coumadin Plan for AV fistula and permacath and anticoagulation is partially resolved Discussed with the referring physician Consultation Date/Type/Reason Admit Date/Time Dec 06, 2016 at 10:56 Date of Consultation: Dec 19, 2016 Reason for Consultation This is a 51-year-old female with a history of chronic kidney disease stage IV Patient also has a history of hypertension diabetes hepatic nephropathy coronary artery disease dyslipidemia Patient will be needing hemodialysis in the near future Eyes: other (decreased vision), No discharge, No no complaints, No pain, No redness, No visual change Respiratory: No cough, No no complaints, No other, No pain, No pleuritic pain, No shortness of breath, No sputum, No wheezing Gastrointestinal: constipation Genitourinary: No bleeding, No discharge, No dysuria, No flank pain, No hematuria, No no complaints, No other Psychological: nl mood/affect, no complaints Past Surgical History Past Surgical Hx: no surgical history Family History Significant Family History: no pertinent family hx Social History Alcohol Use: none Smoking Status: Never smoker Exam/Review of Systems Vital Signs Vitals Vital Signs Date Time Temp Pulse Resp B/P Pulse Ox O2 Delivery O2 Flow Rate FiO2 12/19/16 09:31 72 18 87 21 12/19/16 07:30 98.8 130/61 12/18/16 20:04 Nasal Cannula 2.0 Intake and Output 12/18/16 12/18/16 12/19/16 15:00 23:00 07:00 Intake Total 850 ml 1260 ml 350 ml Output Total 3600 ml Balance 850 ml -2340 ml 350 ml Exam Eyes: EOMI, PERRL, nl conjunctiva, nl lids, nl sclera ENMT: nl external ears & nose, nl lips & teeth, nl nasal mucosa & septum Neck: non-tender, supple Respiratory: clear to auscultation, normal air movement Cardiovascular: nl pulses, regular rate and rhythm Gastrointestinal: nl liver, spleen, non-tender, soft Results Result Diagram: 12/17/16 0610 Results 24 hrs Laboratory Tests Test 12/18/16 12:02 12/18/16 20:18 12/19/16 06:10 12/19/16 07:45 Bedside Glucose 105 139 89 Prothrombin Time 29.8 H Prothrombin Time Ratio 2.3 INR International Normalized Ratio 2.79 Medications Medications Current Medications Sertraline HCl (Zoloft) 100 mg DAILY PO Last administered on 12/19/16 09:00; Admin Dose 100 MG; Start 12/07/16 at 09:00 Amlodipine Besylate (Norvasc) 5 mg BID PO Last administered on 12/19/16 10:35 ; Admin Dose 5 MG; Start 12/06/16 at 21:00 Losartan Potassium (Cozaar) 50 mg BID PO Last administered on 12/19/16 10:36; Admin Dose 50 MG; Start 12/06/16 at 21:00 Atorvastatin Calcium (Lipitor) 80 mg DAILY@21 PO Last administered on 20:26; Admin Dose 80 MG; Start 12/06/16 at 21:00 Polyethylene Glycol (Miralax) 17 gm DAILY PO Last administered on 12/18/16 08: 20; Admin Dose 17 GM; Start 12/07/16 at 09:00 Docusate Sodium (Colace) 100 mg BID PO Last administered on 12/19/16 10:31; Admin Dose 100 MG; Start 12/06/16 at 21:00 Metoprolol Tartrate (Lopressor) 100 mg BID PO Last administered on 12/19/16 10 :37; Admin Dose 100 MG; Start 12/06/16 at 21:00 Vitamin B Complex/ Vitamin C (Berocca) 1 cap BID PO Last administered on 10:32; Admin Dose 1 CAP; Start 12/06/16 at 21:00 Cholecalciferol (Vitamin D) 400 units DAILY PO Last administered on 12/19/16 10:31; Admin Dose 400 UNITS; Start 12/07/16 at 09:00 Pantoprazole (Protonix Tab) 40 mg DAILY@06 PO Last administered on 12/19/16 06 :42; Admin Dose 40 MG; Start 12/07/16 at 06:00 Gabapentin (Neurontin) 400 mg Q8 PO Last administered on 12/19/16 06:42; Admin Dose 400 MG; Start 12/06/16 at 22:00 Hydralazine HCl (Apresoline) 50 mg TID PO Last administered on 12/19/16 10:36 ; Admin Dose 50 MG; Start 12/06/16 at 21:00 Methocarbamol (Robaxin) 500 mg TID PRN PO MUSCLE SPASMS Last administered on 20:30; Admin Dose 500 MG; Start 12/06/16 at 17:00 Diphenhydramine HCl (Benadryl) 25 mg Q6H PRN PO ITCHING Last administered on 10:33; Admin Dose 25 MG; Start 12/06/16 at 15:30 Miscellaneous Information 1 ea NOTE XX ; Start 12/06/16 at 16:00 Glucose (Glutose) 15 gm Q15M PRN PO DECREASED GLUCOSE; Start 12/06/16 at 16:00 Glucose (Glutose) 22.5 gm Q15M PRN PO DECREASED GLUCOSE; Start 12/06/16 at 16: 00 Dextrose (D50w Syringe) 25 ml Q15M PRN IV DECREASED GLUCOSE; Start 12/06/16 at 16:00 Dextrose (D50w Syringe) 50 ml Q15M PRN IV DECREASED GLUCOSE; Start 12/06/16 at 16:00 Glucagon (Glucagen) 1 mg Q15M PRN IM DECREASED GLUCOSE; Start 12/06/16 at 16:00 Glucose (Glutose) 15 gm Q15M PRN BUCCAL DECREASED GLUCOSE; Start 12/06/16 at 16 :00 Acetaminophen (Tylenol Tab) 650 mg Q4H PRN PO PAIN; Start 12/06/16 at 17:00 Magnesium Hydroxide (Milk Of Mag) 30 ml BID PRN PO CONSTIPATION; Start at 17:00 Lactulose (Enulose) 20 gm DAILY PRN PO CONSTIPATION; Start 12/06/16 at 17:00 Oxycodone HCl (Oxycontin) 10 mg Q8 PO Last administered on 12/19/16 06:43; Admin Dose 10 MG; Start 12/07/16 at 11:30 Bisacodyl (Dulcolax Supp) 10 mg DAILY PA ; Start 12/08/16 at 09:00 Phenazopyridine HCl (Pyridium) 100 mg TID PO Last administered on 12/19/16 10: 31; Admin Dose 100 MG; Start 12/12/16 at 21:00 Hydromorphone HCl (Dilaudid) 0.5 mg Q3H PRN IV PAIN Last administered on 12/19/16 01:51; Admin Dose 0.5 MG; Start 12/13/16 at 11:10 Senna (Senokot) 2 tab HS PO Last administered on 12/17/16 20:50; Admin Dose 2 TAB; Start 12/13/16 at 21:00 Warfarin Sodium (Coumadin) 5 mg DAILY@17 PO Last administered on 12/17/16 19: 08; Admin Dose 5 MG; Start 12/15/16 at 17:00; Status Future hold ROSALIND PINEDA MD Dec 19, 2016 11:14
[2016-12-19 14:00] VITALS: BP 122/60; RESP 20
[2016-12-19 19:31] VITALS: BP 138/60; RESP 18
[2016-12-19 19:48] VITALS: BP 118/56; RESP 19
[2016-12-19] MEDS: SENNA TAB PO SCH (21:00)
[2016-12-19] MEDS: ATORVASTATIN 80 MG TAB PO SCH (21:13)
[2016-12-19] MEDS: METHOCARBAMOL 500 MG TAB PO PRN (21:13)
[2016-12-20 02:00] VITALS: BP 144/70; RESP 18
[2016-12-20] MEDS: GABAPENTIN 400 MG CAP PO SCH (06:33)
[2016-12-20] MEDS: PANTOPRAZOLE (EC) 40 MG TAB PO SCH (06:33)
[2016-12-20] MEDS: oxyCODONE (CR) 10 MG TAB [oxyCONTIN] PO SCH ×4 (06:34→22:00)
[2016-12-20] MEDS: Insulin ASPART slide scale (Novolog) SC SCH ×4 (07:05→20:49)
[2016-12-20] MEDS: ALBUTEROL/IPRATROPIUM (NEB) 3 ML AMP HHN SCH ×3 (07:35→19:11)
[2016-12-20 07:38] LABS: INR 2.42; PROTIME 26.6 Sec (12.2-14.2); PT RATIO 2.1
[2016-12-20 08:00] VITALS: BP 142/67; PULSE 75; RESP 20
[2016-12-20] MEDS: BISACODYL 10 MG SUPP PR SCH (09:00)
[2016-12-20] MEDS: SEVELAMER 800 MG TAB PO SCH ×3 (09:21→17:57)
[2016-12-20] MEDS: VITAMIN B COMPLEX/VIT C CAP PO SCH ×2 (09:21→20:55)
[2016-12-20] MEDS: PHENAZOPYRIDINE 100 MG TAB PO SCH ×3 (09:22→20:56)
[2016-12-20] MEDS: DOCUSATE SODIUM 100 MG CAP PO SCH ×2 (09:22→20:56)
[2016-12-20] MEDS: METOPROLOL 100 MG TAB PO SCH ×2 (09:23→20:58)
[2016-12-20] MEDS: CHOLECALCIFEROL 400 UNITS TAB PO SCH (09:23)
[2016-12-20] MEDS: LOSARTAN 50 MG TAB PO SCH ×2 (09:23→20:59)
[2016-12-20] MEDS: SERTRALINE 100 MG TAB PO SCH (09:24)
[2016-12-20] MEDS: AMLODIPINE 5 MG TAB PO SCH ×2 (09:24→20:58)
[2016-12-20] MEDS: POLYETHYLENE GLYCOL 17 GM PACKET PO SCH (09:25)
[2016-12-20] MEDS: GABAPENTIN 300 MG CAP PO SCH (09:36)
[2016-12-20] MEDS: METHOCARBAMOL 500 MG TAB PO PRN (09:36)
[2016-12-20] MEDS: HYDROmorphONE 1 MG/ML SYG IV PRN ×4 (09:37→21:01)
--- NOTE | 2016-12-20 10:35 | PN ---
DATE: 12/20/2016 SUBJECTIVE: The patient apparently is suffering from episodes of twitching reported yesterday. The patient is alert, oriented. The patient was seen by Dr. Mack yesterday for possible PermCath interstitial placement early next week. No other events noted. OBJECTIVE DATA: VITAL SIGNS: Blood pressure is 144/70, respirations 18, pulse 69, temperature 98.2. HEENT: Normocephalic. NECK: Supple. HEART: Regular rate. LUNGS: Diminished breath sounds at the base. ABDOMEN: Soft, nontender to palpation. No rebound or guarding. EXTREMITIES: Negative for clubbing, cyanosis, no edema. DERMATOLOGIC: Clean. No rashes. MUSCULOSKELETAL: No joint effusion. NEUROLOGIC: Unchanged exam. MEDICATIONS: Reviewed. LABORATORY AND DIAGNOSTIC DATA: Laboratory data has been reviewed. No new labs. ASSESSMENT AND PLAN: 1. End-stage renal disease. The patient is scheduled for dialysis tomorrow. 2. Access. The patient is pending a AV fistula placement, Permacath placement Dr. Mack next week. 3. Anemia. Monitor hemoglobin and hematocrit levels. Continue Epogen with dialysis. 4. Mineral bone disorder. Monitor calcium and phosphorus levels. Continue phos binders. 5. Hypertension. Continue current blood pressure regimen. 6. Osteomyelitis status post laminectomy. Patient completed antibiotic course. 7. Urinary tract infection. Continue current antibiotic regimen. 8. Myoclonic jerks. Etiology may be due to medications. We will decrease dose of Neurontin to 300 mg daily. Consider decreasing dose of opiates. 9. T7 paraplegia. Continue physical therapy. 10. History of deep vein thrombosis. The patient is on Coumadin. Will hold Coumadin at this time due to possible procedure early next week. 11. Paroxysmal atrial fibrillation, currently sinus rhythm. Continue current medical management. 12. Diabetes. Continue Accu-Cheks and sliding scale. 13. Encephalopathy, improving. 14. History of cerebrovascular accident. 15. Chronic obstructive pulmonary disease. Continue current treatment plan. 16. Gastrointestinal and deep venous thrombosis prophylaxis. Continue proton pump inhibitors and sequential leg squeezers. Dictated By: Buck Seals DO /saul/nichole /Document#: [id number]
--- NOTE | 2016-12-20 17:09 | PN ---
Date/Time of Note Date/Time of Note DATE: 12/20/16 TIME: 17:08 Assessment/Plan Lines/Catheters IV Catheter Type (from Nrsg): Levi Cath Lara in Place (from Nrsg): No Assessment/Plan Chief Complaint/Hosp Course Chronic kidney disease Plan for AV fistula on permacatheter placement on Wednesday We will hold off on Coumadin Problems: Subjective 24 Hr Interval Summary Constitutional: improved Pain Control: mild Exam/Review of Systems Vital Signs Vitals Vital Signs Date Time Temp Pulse Resp B/P Pulse Ox O2 Delivery O2 Flow Rate FiO2 12/20/16 13:33 Nasal Cannula 2.0 12/20/16 08:00 98.5 75 20 142/67 95 12/20/16 07:35 21 Intake and Output 12/19/16 12/19/16 12/20/16 15:00 23:00 07:00 Intake Total 720 ml 350 ml Output Total 2 ml Balance 718 ml 350 ml Exam ENMT: mucosa pink and moist, nl external ears & nose, nl lips & teeth, nl nasal mucosa & septum Neck: non-tender, supple Respiratory: clear to auscultation, normal air movement Cardiovascular: nl pulses, regular rate and rhythm Gastrointestinal: nl liver, spleen, non-tender, soft Results Result Diagram: 12/17/16 0610 ROSALIND PINEDA MD Dec 20, 2016 17:09
[2016-12-20 20:00] VITALS: BP 142/68; RESP 18
[2016-12-20] MEDS: ATORVASTATIN 80 MG TAB PO SCH (20:53)
[2016-12-20] MEDS: SENNA TAB PO SCH (20:54)
[2016-12-21] VITALS (11 sets, daily range): BP systolic 98–148; BP diastolic 45–85; PULSE 64–80; RESP 18–20
[2016-12-21] MEDS: METHOCARBAMOL 500 MG TAB PO PRN ×2 (02:07→08:51)
[2016-12-21] MEDS: HYDROmorphONE 1 MG/ML SYG IV PRN ×5 (02:07→18:37)
[2016-12-21] MEDS: oxyCODONE (CR) 10 MG TAB [oxyCONTIN] PO SCH ×3 (05:30→21:12)
[2016-12-21] MEDS: PANTOPRAZOLE (EC) 40 MG TAB PO SCH (05:31)
[2016-12-21] MEDS: Insulin ASPART slide scale (Novolog) SC SCH ×4 (07:05→21:07)
[2016-12-21 07:10] LABS: ABNORMAL IP MESSAGE 1; BASOPHIL # 0.1 10^3/ul (0.0-0.1); BASOPHILS % 0.5 % (0.0-2.0); EOSINOPHILS # 1.1 10^3/ul (0.0-0.5); EOSINOPHILS % 10.1 % (0.0-7.0); HEMATOCRIT 27.3 % (37.0-47.0); HEMOGLOBIN 7.8 g/dl (12.0-16.0); LYMPHOCYTES # 2.2 10^3/ul (0.8-2.9); LYMPHOCYTES % 20.2 % (15.0-51.0); MEAN CORPUSCULAR HEMOGLOBIN 29.3 pg (29.0-33.0); MEAN CORPUSCULAR HGB CONC 28.6 g/dl (32.0-37.0); MEAN CORPUSCULAR VOLUME 102.6 fl (82.0-101.0); MONOCYTE # 0.7 10^3/ul (0.3-0.9); MONOCYTES % 6.2 % (0.0-11.0); NEUTROPHIL # 6.9 10^3/ul (1.6-7.5); NEUTROPHILS % 62.5 % (39.0-77.0); PLATELET COUNT 442 10^3/UL (140-415); RED BLOOD COUNT 2.66 10^6/ul (4.20-5.40); RED CELL DISTRIBUTION WIDTH 16.5 % (11.5-14.5)
[2016-12-21 07:14] LABS: POSITIVE DIFF @See below
[2016-12-21 07:42] LABS: INR 1.86; PROTIME 21.6 Sec (12.2-14.2); PT RATIO 1.7
[2016-12-21 07:53] LABS: CALCIUM 8.3 mg/dl (8.4-10.2); CREATININE 3.62 mg/dl (0.44-1.00); MAGNESIUM 2.4 mg/dl (1.7-2.5); PHOSPHORUS 3.6 mg/dl (2.5-4.9); POTASSIUM 3.7 mmol/L (3.5-5.1)
[2016-12-21] MEDS: ALBUTEROL/IPRATROPIUM (NEB) 3 ML AMP HHN SCH ×3 (08:00→20:49)
[2016-12-21] MEDS: LOSARTAN 50 MG TAB PO SCH ×2 (08:03→20:52)
[2016-12-21] MEDS: AMLODIPINE 5 MG TAB PO SCH ×2 (08:04→20:52)
[2016-12-21] MEDS: METOPROLOL 100 MG TAB PO SCH ×2 (08:04→20:54)
--- NOTE | 2016-12-21 08:15 | PN ---
Date/Time of Note Date/Time of Note DATE: 12/21/16 TIME: 08:14 Assessment/Plan Lines/Catheters IV Catheter Type (from Nrsg): Quiton Catheter pigtail Lara in Place (from Nrsg): No Assessment/Plan Chief Complaint/Hosp Course Chronic kidney disease INR 1.86 today Plan for AV fistula on permacatheter placement on Tomorrow if INR 1.3 or less We will hold off on Coumadin Problems: Subjective 24 Hr Interval Summary Constitutional: improved Pain Control: mild Exam/Review of Systems Vital Signs Vitals Vital Signs Date Time Temp Pulse Resp B/P Pulse Ox O2 Delivery O2 Flow Rate FiO2 12/21/16 06:32 2.0 12/21/16 02:00 97.8 72 18 148/68 96 12/20/16 19:11 Nasal Cannula 12/20/16 07:35 21 Exam ENMT: mucosa pink and moist, nl external ears & nose, nl lips & teeth, nl nasal mucosa & septum Neck: non-tender, supple Respiratory: clear to auscultation, normal air movement Cardiovascular: nl pulses, regular rate and rhythm Results Result Diagram: 12/21/16 0602 12/21/16 0606 ROSALIND PINEDA MD Dec 21, 2016 08:15
--- NOTE | 2016-12-21 08:17 | PN ---
Date/Time of Note Date/Time of Note DATE: 12/21/16 TIME: 08:16 Assessment/Plan Lines/Catheters IV Catheter Type (from Nrsg): Quiton Catheter pigtail Lara in Place (from Nrsg): No Assessment/Plan Chief Complaint/Hosp Course Chronic kidney disease INR 1.86 today Plan for AV fistula on permacatheter placement on Tomorrow if INR 1.3 or less We will hold off on Coumadin Problems: Subjective 24 Hr Interval Summary Constitutional: improved Pain Control: mild Exam/Review of Systems Vital Signs Vitals Vital Signs Date Time Temp Pulse Resp B/P Pulse Ox O2 Delivery O2 Flow Rate FiO2 12/21/16 06:32 2.0 12/21/16 02:00 97.8 72 18 148/68 96 12/20/16 19:11 Nasal Cannula 12/20/16 07:35 21 Exam ENMT: mucosa pink and moist, nl external ears & nose, nl lips & teeth, nl nasal mucosa & septum Neck: non-tender, supple Respiratory: clear to auscultation, normal air movement Cardiovascular: nl pulses, regular rate and rhythm Gastrointestinal: nl liver, spleen, non-tender, soft Results Result Diagram: 12/21/16 0602 12/21/16 0606 ROSALIND PINEDA MD Dec 21, 2016 08:17
[2016-12-21] MEDS: VITAMIN B COMPLEX/VIT C CAP PO SCH ×2 (08:42→20:51)
[2016-12-21] MEDS: PHENAZOPYRIDINE 100 MG TAB PO SCH ×3 (08:42→20:51)
[2016-12-21] MEDS: GABAPENTIN 300 MG CAP PO SCH (08:42)
[2016-12-21] MEDS: CHOLECALCIFEROL 400 UNITS TAB PO SCH (08:42)
[2016-12-21] MEDS: SEVELAMER 800 MG TAB PO SCH ×3 (08:42→18:18)
[2016-12-21] MEDS: SERTRALINE 100 MG TAB PO SCH (08:43)
[2016-12-21] MEDS: DOCUSATE SODIUM 100 MG CAP PO SCH ×2 (08:56→20:51)
[2016-12-21] MEDS: POLYETHYLENE GLYCOL 17 GM PACKET PO SCH (08:56)
[2016-12-21] MEDS: BISACODYL 10 MG SUPP PR SCH (08:56)
--- NOTE | 2016-12-21 11:06 | PN ---
DATE: 12/21/2016 SUBJECTIVE DATA: The patient is stable. No events overnight. The patient is scheduled for hemodialysis today. OBJECTIVE DATA: VITAL SIGNS: Blood pressure 148/68, respirations 18, pulse 72, temperature 97.8. HEENT: Head is normocephalic. NECK: Supple. HEART: Regular rate. LUNGS: Diminished breath sounds at the base. ABDOMEN: Soft, nontender to palpation. No rebound or guarding. EXTREMITIES: Negative for clubbing, cyanosis, no edema. DERMATOLOGIC: No rashes. MUSCULOSKELETAL: No joint effusion. NEUROLOGIC: No change in exam. MEDICATIONS: Reviewed. LABORATORY DATA: White count 9.0, hemoglobin 7.8, hematocrit 27.3, platelet count 442. Sodium 134, BUN 38, creatinine 3.62. ASSESSMENT AND PLAN: 1. End-stage renal disease. The patient is scheduled for hemodialysis today. 2. Access: Patient is pending PermCath placement AV fistula this week by Dr. Mack. 3. Anemia. The etiology is likely from chronic disease. The patient is on Epogen. Please note, there is a component of iron deficiency. The patient is status post IV Ferrlecit. Will continue to monitor closely. 4. Mineral bone disorder. Monitor calcium and phosphorus levels. 5. Hypertension. Continue current blood pressure regimen. 6. Osteomyelitis, status post laminectomy. The patient completed antibiotic course. 7. Urinary tract infection. Continue current antibiotic regimen. 8. Myoclonic jerks. Etiology may be secondary Neurontin. Dose was adjusted. Continue to monitor. 9. T7 incomplete paraplegia. Continue physical therapy. 10. History of deep vein thrombosis. The patient's Coumadin. Will hold due to surgery plan in the next one to two days. 11. Paroxysmal atrial fibrillation. Currently sinus rhythm. Continue current medical management. Follow up with Cardiology. 12. Diabetes. Continue Accu-Cheks and insulin sliding scale. 13. Encephalopathy, improving. 14. History of cerebrovascular accident. 15. Chronic obstructive pulmonary disease. Continue current treatment plan. 16. Gastrointestinal and deep venous thrombosis prophylaxis. Continue PPI and sequential leg squeezers. Dictated By: Buck Seals DO /saul/yandy /Document#: [id number]
--- NOTE | 2016-12-21 13:25 | CONS ---
Date/Time of Note Date/Time of Note DATE: 12/21/16 TIME: 13:24 Consult Date/Type/Reason Admit Date/Time Dec 06, 2016 at 10:56 Type of Consultation: ID Objective Vital Signs Date Time Temp Pulse Resp B/P Pulse Ox O2 Delivery O2 Flow Rate FiO2 12/21/16 08:49 2.0 12/21/16 08:00 Nasal Cannula 12/21/16 07:30 98.1 66 20 125/55 96 12/20/16 07:35 21 INTERDISCIPLINARY TEAM CONFERENCE BOWEL- Cont BLADDER-ESRD on HD SKIN- c/d/i OT- DRESSING-min/mod BATHING-min/mod TOILETING-min/mod PT- BED MOBILITY-mod TRANSFERS-mod W.C. MOBILITY-cga SPEECH- COGNITION-min A/P- Interdisciplinary team conference held today. Please see interdisciplinary sheet. Working on d.c. to supervised environment 12/25 with post discharge follow up of physical therapy, occupational therapy. Results/Medications Result Diagram: 12/21/16 0602 12/21/16 0606 Results 24 hrs Laboratory Tests Test 12/20/16 17:25 12/20/16 20:49 12/21/16 06:02 12/21/16 06:06 Bedside Glucose 118 147 White Blood Count 11.0 H Red Blood Count 2.66 L Hemoglobin 7.8 L Hematocrit 27.3 L Mean Corpuscular Volume 102.6 H Mean Corpuscular Hemoglobin 29.3 Mean Corpuscular Hemoglobin Concent 28.6 L Red Cell Distribution Width 16.5 H Platelet Count 442 H Mean Platelet Volume 8.0 Neutrophils % 62.5 Lymphocytes % 20.2 Monocytes % 6.2 Eosinophils % 10.1 H Basophils % 0.5 Nucleated Red Blood Cells % 0.0 Neutrophils # 6.9 Lymphocytes # 2.2 Monocytes # 0.7 Eosinophils # 1.1 H Basophils # 0.1 Nucleated Red Blood Cells # 0.0 Prothrombin Time 21.6 H Prothrombin Time Ratio 1.7 INR International Normalized Ratio 1.86 Sodium Level 134 L Potassium Level 3.7 Chloride Level 100 Carbon Dioxide Level 29 Anion Gap 9 Blood Urea Nitrogen 38 H Creatinine 3.62 H Glucose Level 82 Calcium Level 8.3 L Phosphorus Level 3.6 Magnesium Level 2.4 Test 12/21/16 07:47 12/21/16 12:07 Bedside Glucose 93 111 Medications Current Medications Sertraline HCl (Zoloft) 100 mg DAILY PO Last administered on 12/21/16 08:43; Admin Dose 100 MG; Start 12/07/16 at 09:00 Amlodipine Besylate (Norvasc) 5 mg BID PO Last administered on 12/20/16 20:58 ; Admin Dose 5 MG; Start 12/06/16 at 21:00 Losartan Potassium (Cozaar) 50 mg BID PO Last administered on 12/20/16 20:59; Admin Dose 50 MG; Start 12/06/16 at 21:00 Atorvastatin Calcium (Lipitor) 80 mg DAILY@21 PO Last administered on 20:53; Admin Dose 80 MG; Start 12/06/16 at 21:00 Polyethylene Glycol (Miralax) 17 gm DAILY PO Last administered on 12/20/16 09: 25; Admin Dose 17 GM; Start 12/07/16 at 09:00 Docusate Sodium (Colace) 100 mg BID PO Last administered on 12/20/16 20:56; Admin Dose 100 MG; Start 12/06/16 at 21:00 Metoprolol Tartrate (Lopressor) 100 mg BID PO Last administered on 12/20/16 20 :58; Admin Dose 100 MG; Start 12/06/16 at 21:00 Vitamin B Complex/ Vitamin C (Berocca) 1 cap BID PO Last administered on 08:42; Admin Dose 1 CAP; Start 12/06/16 at 21:00 Cholecalciferol (Vitamin D) 400 units DAILY PO Last administered on 12/21/16 08:42; Admin Dose 400 UNITS; Start 12/07/16 at 09:00 Pantoprazole (Protonix Tab) 40 mg DAILY@06 PO Last administered on 12/21/16 05 :31; Admin Dose 40 MG; Start 12/07/16 at 06:00 Hydralazine HCl (Apresoline) 50 mg TID PO Last administered on 12/20/16 20:58 ; Admin Dose 50 MG; Start 12/06/16 at 21:00 Methocarbamol (Robaxin) 500 mg TID PRN PO MUSCLE SPASMS Last administered on 08:51; Admin Dose 500 MG; Start 12/06/16 at 17:00 Diphenhydramine HCl (Benadryl) 25 mg Q6H PRN PO ITCHING Last administered on 10:33; Admin Dose 25 MG; Start 12/06/16 at 15:30 Miscellaneous Information 1 ea NOTE XX ; Start 12/06/16 at 16:00 Glucose (Glutose) 15 gm Q15M PRN PO DECREASED GLUCOSE; Start 12/06/16 at 16:00 Glucose (Glutose) 22.5 gm Q15M PRN PO DECREASED GLUCOSE; Start 12/06/16 at 16: 00 Dextrose (D50w Syringe) 25 ml Q15M PRN IV DECREASED GLUCOSE; Start 12/06/16 at 16:00 Dextrose (D50w Syringe) 50 ml Q15M PRN IV DECREASED GLUCOSE; Start 12/06/16 at 16:00 Glucagon (Glucagen) 1 mg Q15M PRN IM DECREASED GLUCOSE; Start 12/06/16 at 16:00 Glucose (Glutose) 15 gm Q15M PRN BUCCAL DECREASED GLUCOSE; Start 12/06/16 at 16 :00 Acetaminophen (Tylenol Tab) 650 mg Q4H PRN PO PAIN; Start 12/06/16 at 17:00 Magnesium Hydroxide (Milk Of Mag) 30 ml BID PRN PO CONSTIPATION; Start at 17:00 Lactulose (Enulose) 20 gm DAILY PRN PO CONSTIPATION; Start 12/06/16 at 17:00 Oxycodone HCl (Oxycontin) 10 mg Q8 PO Last administered on 12/21/16 05:30; Admin Dose 10 MG; Start 12/07/16 at 11:30 Bisacodyl (Dulcolax Supp) 10 mg DAILY [place] ; Start 12/08/16 at 09:00 Phenazopyridine HCl (Pyridium) 100 mg TID PO Last administered on 12/21/16 12: 18; Admin Dose 100 MG; Start 12/12/16 at 21:00 Hydromorphone HCl (Dilaudid) 0.5 mg Q3H PRN IV PAIN Last administered on 12/21/16 12:18; Admin Dose 0.5 MG; Start 12/13/16 at 11:10 Senna (Senokot) 2 tab HS PO Last administered on 12/20/16 20:54; Admin Dose 2 TAB; Start 12/13/16 at 21:00 Warfarin Sodium (Coumadin) 5 mg DAILY@17 PO Last administered on 12/17/16 19: 08; Admin Dose 5 MG; Start 12/15/16 at 17:00; Status Future Hold Gabapentin (Neurontin) 300 mg DAILY PO Last administered on 12/21/16 08:42; Admin Dose 300 MG; Start 12/20/16 at 09:00 ALINE CORREIA MD Dec 21, 2016 13:25 ALINE CORREIA MD Dec 21, 2016 13:25
--- NOTE | 2016-12-21 17:10 | CONS ---
Date/Time of Note Date/Time of Note DATE: 12/21/16 TIME: 17:08 Consult Date/Type/Reason Admit Date/Time Dec 06, 2016 at 10:56 Initial Consult Date 12/10/16 Type of Consultation: CARDIOLOGY Subjective CARDIOLOGY FOLLOW UP d/w staff. d/w Dr Seals. pt still c/o left hip pain now. No significant change no chest pain or pressure. no palpitations or bleeding she has fatigue no bleeding. OBJECTIVE: General: no acute distress. Obese female. HEENT: NC/AT. pupils are equal. round. NECK: NO JVD. no stridor. CV: RRR. systolic murmur; no gallop or rubs. chest: s/p R HD access in place. PULM: no wheezing or rhonchi. GI: SOFT, NT, ND, no rebound or guarding. Obese Extremity: + B/L LE edema. no clubbing. neuro: drowsy but responds appropriately Psych: calm and pleasant rectal: deferred Objective Vital Signs Date Time Temp Pulse Resp B/P Pulse Ox O2 Delivery O2 Flow Rate FiO2 12/21/16 14:00 98.8 68 20 143/67 95 12/21/16 08:49 2.0 12/21/16 08:00 Nasal Cannula 12/20/16 07:35 21 Results/Medications Result Diagram: 12/21/16 0602 12/21/16 0606 Results 24 hrs Laboratory Tests Test 12/20/16 17:25 12/20/16 20:49 12/21/16 06:02 12/21/16 06:06 Bedside Glucose 118 147 White Blood Count 11.0 H Red Blood Count 2.66 L Hemoglobin 7.8 L Hematocrit 27.3 L Mean Corpuscular Volume 102.6 H Mean Corpuscular Hemoglobin 29.3 Mean Corpuscular Hemoglobin Concent 28.6 L Red Cell Distribution Width 16.5 H Platelet Count 442 H Mean Platelet Volume 8.0 Neutrophils % 62.5 Lymphocytes % 20.2 Monocytes % 6.2 Eosinophils % 10.1 H Basophils % 0.5 Nucleated Red Blood Cells % 0.0 Neutrophils # 6.9 Lymphocytes # 2.2 Monocytes # 0.7 Eosinophils # 1.1 H Basophils # 0.1 Nucleated Red Blood Cells # 0.0 Prothrombin Time 21.6 H Prothrombin Time Ratio 1.7 INR International Normalized Ratio 1.86 Sodium Level 134 L Potassium Level 3.7 Chloride Level 100 Carbon Dioxide Level 29 Anion Gap 9 Blood Urea Nitrogen 38 H Creatinine 3.62 H Glucose Level 82 Calcium Level 8.3 L Phosphorus Level 3.6 Magnesium Level 2.4 Test 12/21/16 07:47 12/21/16 12:07 Bedside Glucose 93 111 Medications Current Medications Sertraline HCl (Zoloft) 100 mg DAILY PO Last administered on 12/21/16 08:43; Admin Dose 100 MG; Start 12/07/16 at 09:00 Amlodipine Besylate (Norvasc) 5 mg BID PO Last administered on 12/20/16 20:58 ; Admin Dose 5 MG; Start 12/06/16 at 21:00 Losartan Potassium (Cozaar) 50 mg BID PO Last administered on 12/20/16 20:59; Admin Dose 50 MG; Start 12/06/16 at 21:00 Atorvastatin Calcium (Lipitor) 80 mg DAILY@21 PO Last administered on 20:53; Admin Dose 80 MG; Start 12/06/16 at 21:00 Polyethylene Glycol (Miralax) 17 gm DAILY PO Last administered on 12/20/16 09: 25; Admin Dose 17 GM; Start 12/07/16 at 09:00 Docusate Sodium (Colace) 100 mg BID PO Last administered on 12/20/16 20:56; Admin Dose 100 MG; Start 12/06/16 at 21:00 Metoprolol Tartrate (Lopressor) 100 mg BID PO Last administered on 12/20/16 20 :58; Admin Dose 100 MG; Start 12/06/16 at 21:00 Vitamin B Complex/ Vitamin C (Berocca) 1 cap BID PO Last administered on 08:42; Admin Dose 1 CAP; Start 12/06/16 at 21:00 Cholecalciferol (Vitamin D) 400 units DAILY PO Last administered on 12/21/16 08:42; Admin Dose 400 UNITS; Start 12/07/16 at 09:00 Pantoprazole (Protonix Tab) 40 mg DAILY@06 PO Last administered on 12/21/16 05 :31; Admin Dose 40 MG; Start 12/07/16 at 06:00 Hydralazine HCl (Apresoline) 50 mg TID PO Last administered on 12/20/16 20:58 ; Admin Dose 50 MG; Start 12/06/16 at 21:00 Methocarbamol (Robaxin) 500 mg TID PRN PO MUSCLE SPASMS Last administered on 08:51; Admin Dose 500 MG; Start 12/06/16 at 17:00 Diphenhydramine HCl (Benadryl) 25 mg Q6H PRN PO ITCHING Last administered on 10:33; Admin Dose 25 MG; Start 12/06/16 at 15:30 Miscellaneous Information 1 ea NOTE XX ; Start 12/06/16 at 16:00 Glucose (Glutose) 15 gm Q15M PRN PO DECREASED GLUCOSE; Start 12/06/16 at 16:00 Glucose (Glutose) 22.5 gm Q15M PRN PO DECREASED GLUCOSE; Start 12/06/16 at 16: 00 Dextrose (D50w Syringe) 25 ml Q15M PRN IV DECREASED GLUCOSE; Start 12/06/16 at 16:00 Dextrose (D50w Syringe) 50 ml Q15M PRN IV DECREASED GLUCOSE; Start 12/06/16 at 16:00 Glucagon (Glucagen) 1 mg Q15M PRN IM DECREASED GLUCOSE; Start 12/06/16 at 16:00 Glucose (Glutose) 15 gm Q15M PRN BUCCAL DECREASED GLUCOSE; Start 12/06/16 at 16 :00 Acetaminophen (Tylenol Tab) 650 mg Q4H PRN PO PAIN; Start 12/06/16 at 17:00 Magnesium Hydroxide (Milk Of Mag) 30 ml BID PRN PO CONSTIPATION; Start at 17:00 Lactulose (Enulose) 20 gm DAILY PRN PO CONSTIPATION; Start 12/06/16 at 17:00 Oxycodone HCl (Oxycontin) 10 mg Q8 PO Last administered on 12/21/16 13:54; Admin Dose 10 MG; Start 12/07/16 at 11:30 Bisacodyl (Dulcolax Supp) 10 mg DAILY MD ; Start 12/08/16 at 09:00 Phenazopyridine HCl (Pyridium) 100 mg TID PO Last administered on 12/21/16 12: 18; Admin Dose 100 MG; Start 12/12/16 at 21:00 Hydromorphone HCl (Dilaudid) 0.5 mg Q3H PRN IV PAIN Last administered on 12/21/16 15:34; Admin Dose 0.5 MG; Start 12/13/16 at 11:10 Senna (Senokot) 2 tab HS PO Last administered on 12/20/16 20:54; Admin Dose 2 TAB; Start 12/13/16 at 21:00 Warfarin Sodium (Coumadin) 5 mg DAILY@17 PO Last administered on 12/17/16 19: 08; Admin Dose 5 MG; Start 12/15/16 at 17:00; Status Future Hold Gabapentin (Neurontin) 300 mg DAILY PO Last administered on 12/21/16 08:42; Admin Dose 300 MG; Start 12/20/16 at 09:00 Assessment/Plan Chief Complaint/Hosp Course 1. History of P-atrial fibrillation. Currently in NSR 2. History of CVA 3. Hypertension. 4. Renal failure, on dialysis. 5. History of dyslipidemia. 6. History of multiple infections. 7. Discitis. 8. Severe anemia. 9. History of deep vein thrombosis. 10. hyper K: to be corrected by HD. coumadin is on hold in anticipation for HD access placement ECHO shows normal EF AND LA size. cont betablocker. HD as per renal Cont PT as tolerated. pain management as per IM check PT / INR THANK YOU Problems: TAMERA BAILEY MD Dec 21, 2016 17:10
[2016-12-21] MEDS: SENNA TAB PO SCH (20:51)
[2016-12-21] MEDS: ATORVASTATIN 80 MG TAB PO SCH (20:51)
[2016-12-22 02:00] VITALS: BP 127/58; RESP 18
[2016-12-22] MEDS: PANTOPRAZOLE (EC) 40 MG TAB PO SCH (06:29)
[2016-12-22] MEDS: oxyCODONE (CR) 10 MG TAB [oxyCONTIN] PO SCH ×3 (06:30→21:05)
[2016-12-22 07:04] LABS: ABNORMAL IP MESSAGE 1; BASOPHIL # 0.1 10^3/ul (0.0-0.1); BASOPHILS % 0.5 % (0.0-2.0); EOSINOPHILS # 0.9 10^3/ul (0.0-0.5); EOSINOPHILS % 9.1 % (0.0-7.0); HEMATOCRIT 27.2 % (37.0-47.0); HEMOGLOBIN 7.8 g/dl (12.0-16.0); LYMPHOCYTES # 2.3 10^3/ul (0.8-2.9); LYMPHOCYTES % 22.8 % (15.0-51.0); MEAN CORPUSCULAR HEMOGLOBIN 29.5 pg (29.0-33.0); MEAN CORPUSCULAR HGB CONC 28.7 g/dl (32.0-37.0); MEAN PLATELET VOLUME 7.9 fl (7.4-10.4); MONOCYTE # 0.6 10^3/ul (0.3-0.9); PLATELET COUNT 403 10^3/UL (140-415); RED BLOOD COUNT 2.64 10^6/ul (4.20-5.40); RED CELL DISTRIBUTION WIDTH 16.1 % (11.5-14.5); WHITE BLOOD COUNT 10.3 10^3/ul (4.8-10.8)
[2016-12-22] MEDS: Insulin ASPART slide scale (Novolog) SC SCH ×4 (07:05→22:11)
[2016-12-22 07:09] LABS: POSITIVE DIFF @See below
[2016-12-22 07:16] LABS: INR 1.47; PROTIME 17.9 Sec (12.2-14.2); PT RATIO 1.4
[2016-12-22 07:23] LABS: CALCIUM 8.4 mg/dl (8.4-10.2); CREATININE 3.06 mg/dl (0.44-1.00); MAGNESIUM 2.4 mg/dl (1.7-2.5); PHOSPHORUS 3.2 mg/dl (2.5-4.9); POTASSIUM 4.3 mmol/L (3.5-5.1)
[2016-12-22 07:46] VITALS: BP 122/61; RESP 18
[2016-12-22] MEDS: SEVELAMER 800 MG TAB PO SCH ×3 (07:59→17:48)
[2016-12-22] MEDS: HYDROmorphONE 1 MG/ML SYG IV PRN ×6 (08:01→18:40)
[2016-12-22] MEDS: BISACODYL 10 MG SUPP PR SCH (09:00)
[2016-12-22] MEDS: ALBUTEROL/IPRATROPIUM (NEB) 3 ML AMP HHN SCH ×3 (09:07→20:12)
[2016-12-22] MEDS: PHENAZOPYRIDINE 100 MG TAB PO SCH ×3 (09:07→21:05)
[2016-12-22] MEDS: CHOLECALCIFEROL 400 UNITS TAB PO SCH (09:07)
[2016-12-22] MEDS: GABAPENTIN 300 MG CAP PO SCH (09:08)
[2016-12-22] MEDS: VITAMIN B COMPLEX/VIT C CAP PO SCH ×2 (09:08→21:04)
[2016-12-22] MEDS: SERTRALINE 100 MG TAB PO SCH (09:09)
[2016-12-22] MEDS: DOCUSATE SODIUM 100 MG CAP PO SCH ×2 (09:09→21:00)
[2016-12-22] MEDS: METOPROLOL 100 MG TAB PO SCH ×2 (09:40→21:06)
[2016-12-22] MEDS: AMLODIPINE 5 MG TAB PO SCH ×2 (09:41→21:06)
[2016-12-22] MEDS: POLYETHYLENE GLYCOL 17 GM PACKET PO SCH (09:41)
[2016-12-22] MEDS: LOSARTAN 50 MG TAB PO SCH ×2 (09:47→21:05)
--- NOTE | 2016-12-22 12:37 | CONS ---
Date/Time of Note Date/Time of Note DATE: 12/22/16 TIME: 12:36 Consult Date/Type/Reason Admit Date/Time Dec 06, 2016 at 10:56 Type of Consultation: CARDIOLOGY Subjective Comfortable Objective pulm-cta mod assist transfer Vital Signs Date Time Temp Pulse Resp B/P Pulse Ox O2 Delivery O2 Flow Rate FiO2 12/22/16 09:08 73 20 93 Nasal Cannula 2.0 12/22/16 07:46 98.4 122/61 12/20/16 07:35 21 Intake and Output 12/21/16 12/21/16 12/22/16 15:00 23:00 07:00 Intake Total 1020 ml 320 ml Output Total 5402 ml Balance -4382 ml 320 ml Results/Medications Result Diagram: 12/22/16 0628 12/22/16 0628 Results 24 hrs Laboratory Tests Test 12/21/16 17:18 12/21/16 18:13 12/21/16 21:02 12/22/16 03:05 Bedside Glucose 186 197 151 107 Test 12/22/16 06:28 12/22/16 08:06 12/22/16 12:20 White Blood Count 10.3 Red Blood Count 2.64 L Hemoglobin 7.8 L Hematocrit 27.2 L Mean Corpuscular Volume 103.0 H Mean Corpuscular Hemoglobin 29.5 Mean Corpuscular Hemoglobin Concent 28.7 L Red Cell Distribution Width 16.1 H Platelet Count 403 Mean Platelet Volume 7.9 Neutrophils % 61.0 Lymphocytes % 22.8 Monocytes % 6.0 Eosinophils % 9.1 H Basophils % 0.5 Nucleated Red Blood Cells % 0.0 Neutrophils # (Manual) 6.3 Lymphocytes # 2.3 Monocytes # 0.6 Eosinophils # 0.9 H Basophils # 0.1 Nucleated Red Blood Cells # 0.0 Prothrombin Time 17.9 H Prothrombin Time Ratio 1.4 INR International Normalized Ratio 1.47 Sodium Level 136 Potassium Level 4.3 Chloride Level 100 Carbon Dioxide Level 29 Anion Gap 11 Blood Urea Nitrogen 32 H Creatinine 3.06 H Glucose Level 83 Calcium Level 8.4 Phosphorus Level 3.2 Magnesium Level 2.4 Bedside Glucose 90 129 Medications Current Medications Sertraline HCl (Zoloft) 100 mg DAILY PO Last administered on 12/22/16t 09:09; Admin Dose 100 MG; Start 12/07/16 at 09:00 Amlodipine Besylate (Norvasc) 5 mg BID PO Last administered on 12/22/16 09:41 ; Admin Dose 5 MG; Start 12/06/16 at 21:00 Losartan Potassium (Cozaar) 50 mg BID PO Last administered on 12/22/16 09:47; Admin Dose 50 MG; Start 12/06/16 at 21:00 Atorvastatin Calcium (Lipitor) 80 mg DAILY@21 PO Last administered on 20:51; Admin Dose 80 MG; Start 12/06/16 at 21:00 Polyethylene Glycol (Miralax) 17 gm DAILY PO Last administered on 12/22/16 09: 41; Admin Dose 17 GM; Start 12/07/16 at 09:00 Docusate Sodium (Colace) 100 mg BID PO Last administered on 12/22/16 09:09; Admin Dose 100 MG; Start 12/06/16 at 21:00 Metoprolol Tartrate (Lopressor) 100 mg BID PO Last administered on 12/22/16 09 :40; Admin Dose 100 MG; Start 12/06/16 at 21:00 Vitamin B Complex/ Vitamin C (Berocca) 1 cap BID PO Last administered on 09:08; Admin Dose 1 CAP; Start 12/06/16 at 21:00 Cholecalciferol (Vitamin D) 400 units DAILY PO Last administered on 12/22/16 09:07; Admin Dose 400 UNITS; Start 12/07/16 at 09:00 Pantoprazole (Protonix Tab) 40 mg DAILY@06 PO Last administered on 12/22/16 06 :29; Admin Dose 40 MG; Start 12/07/16 at 06:00 Hydralazine HCl (Apresoline) 50 mg TID PO Last administered on 12/22/16 09:40 ; Admin Dose 50 MG; Start 12/06/16 at 21:00 Methocarbamol (Robaxin) 500 mg TID PRN PO MUSCLE SPASMS Last administered on 08:51; Admin Dose 500 MG; Start 12/06/16 at 17:00 Diphenhydramine HCl (Benadryl) 25 mg Q6H PRN PO ITCHING Last administered on 10:33; Admin Dose 25 MG; Start 12/06/16 at 15:30 Miscellaneous Information 1 ea NOTE XX ; Start 12/06/16 at 16:00 Glucose (Glutose) 15 gm Q15M PRN PO DECREASED GLUCOSE; Start 12/06/16 at 16:00 Glucose (Glutose) 22.5 gm Q15M PRN PO DECREASED GLUCOSE; Start 12/06/16 at 16: 00 Dextrose (D50w Syringe) 25 ml Q15M PRN IV DECREASED GLUCOSE; Start 12/06/16 at 16:00 Dextrose (D50w Syringe) 50 ml Q15M PRN IV DECREASED GLUCOSE; Start 12/06/16 at 16:00 Glucagon (Glucagen) 1 mg Q15M PRN IM DECREASED GLUCOSE; Start 12/06/16 at 16:00 Glucose (Glutose) 15 gm Q15M PRN BUCCAL DECREASED GLUCOSE; Start 12/06/16 at 16 :00 Acetaminophen (Tylenol Tab) 650 mg Q4H PRN PO PAIN; Start 12/06/16 at 17:00 Magnesium Hydroxide (Milk Of Mag) 30 ml BID PRN PO CONSTIPATION; Start at 17:00 Lactulose (Enulose) 20 gm DAILY PRN PO CONSTIPATION; Start 12/06/16 at 17:00 Oxycodone HCl (Oxycontin) 10 mg Q8 PO Last administered on 12/22/16 06:30; Admin Dose 10 MG; Start 12/07/16 at 11:30 Bisacodyl (Dulcolax Supp) [address] ; Start 12/08/16 at 09:00 Phenazopyridine HCl (Pyridium) 100 mg TID PO Last administered on 12/22/16 09: 07; Admin Dose 100 MG; Start 12/12/16 at 21:00 Hydromorphone HCl (Dilaudid) 0.5 mg Q3H PRN IV PAIN Last administered on 12/22/16 11:34; Admin Dose 0.5 MG; Start 12/13/16 at 11:10 Senna (Senokot) 2 tab HS PO Last administered on 12/21/16 20:51; Admin Dose 2 TAB; Start 12/13/16 at 21:00 Warfarin Sodium (Coumadin) 5 mg DAILY@17 PO Last administered on 12/17/16 19: 08; Admin Dose 5 MG; Start 12/15/16 at 17:00; Status Future Hold Gabapentin (Neurontin) 300 mg DAILY PO Last administered on 12/22/16t 09:08; Admin Dose 300 MG; Start 12/20/16 at 09:00 Assessment/Plan Additional Assessment/Plan Rehabilitation-T7 incomplete paraplegia due to epidural abscess/osteomyelitis- status post Thoracic lami drainage of abscess Continue treatment plan. Work towards gradual decrease in pain medications Pulmonary -post operative respiratory failure requiring intubation, with eventual extubation, currently stable Toxic metabolic encephalopathy-continue treatment plan, cognition improving Diabetes Mellitus type 2 ESRD on HD Afib Coronary Artery Disease history of DVT Hypertension Hypercholesterolemia COPD history of CVA anxiety depression ALINE CORREIA MD Dec 22, 2016 12:36
--- NOTE | 2016-12-22 14:45 | CONS ---
Date/Time of Note Date/Time of Note DATE: 12/22/16 TIME: 14:43 Consult Date/Type/Reason Admit Date/Time Dec 06, 2016 at 10:56 Initial Consult Date 12/10/16 Type of Consultation: CARDIOLOGY Subjective CARDIOLOGY FOLLOW UP d/w staff. d/w Dr Mack d/w . pt with less left hip pain now. no chest pain or pressure. no palpitations or bleeding no bleeding. OBJECTIVE: General: no acute distress. Obese female. HEENT: NC/AT. pupils are equal. round. NECK: NO JVD. no stridor. CV: RRR. systolic murmur; no gallop or rubs. chest: s/p R HD access in place. PULM: no wheezing or rhonchi. GI: SOFT, NT, ND, no rebound or guarding. Obese Extremity: + B/L LE edema. no clubbing. neuro: drowsy but responds appropriately Psych: calm and pleasant rectal: deferred Objective Vital Signs Date Time Temp Pulse Resp B/P Pulse Ox O2 Delivery O2 Flow Rate FiO2 12/22/16 09:08 73 20 93 Nasal Cannula 2.0 12/22/16 07:46 98.4 122/61 12/20/16 07:35 21 Intake and Output 12/21/16 12/21/16 12/22/16 15:00 23:00 07:00 Intake Total 1020 ml 320 ml Output Total 5402 ml Balance -4382 ml 320 ml Results/Medications Result Diagram: 12/22/16 0628 12/22/16 0628 Results 24 hrs Laboratory Tests Test 12/21/16 17:18 12/21/16 18:13 12/21/16 21:02 12/22/16 03:05 Bedside Glucose 186 197 151 107 Test 12/22/16 06:28 12/22/16 08:06 12/22/16 12:20 White Blood Count 10.3 Red Blood Count 2.64 L Hemoglobin 7.8 L Hematocrit 27.2 L Mean Corpuscular Volume 103.0 H Mean Corpuscular Hemoglobin 29.5 Mean Corpuscular Hemoglobin Concent 28.7 L Red Cell Distribution Width 16.1 H Platelet Count 403 Mean Platelet Volume 7.9 Neutrophils % 61.0 Lymphocytes % 22.8 Monocytes % 6.0 Eosinophils % 9.1 H Basophils % 0.5 Nucleated Red Blood Cells % 0.0 Neutrophils # (Manual) 6.3 Lymphocytes # 2.3 Monocytes # 0.6 Eosinophils # 0.9 H Basophils # 0.1 Nucleated Red Blood Cells # 0.0 Prothrombin Time 17.9 H Prothrombin Time Ratio 1.4 INR International Normalized Ratio 1.47 Sodium Level 136 Potassium Level 4.3 Chloride Level 100 Carbon Dioxide Level 29 Anion Gap 11 Blood Urea Nitrogen 32 H Creatinine 3.06 H Glucose Level 83 Calcium Level 8.4 Phosphorus Level 3.2 Magnesium Level 2.4 Bedside Glucose 90 129 Medications Current Medications Sertraline HCl (Zoloft) 100 mg DAILY PO Last administered on 12/22/16 09:09; Admin Dose 100 MG; Start 12/07/16 at 09:00 Amlodipine Besylate (Norvasc) 5 mg BID PO Last administered on 12/22/16 09:41 ; Admin Dose 5 MG; Start 12/06/16 at 21:00 Losartan Potassium (Cozaar) 50 mg BID PO Last administered on 12/22/16 09:47; Admin Dose 50 MG; Start 12/06/16 at 21:00 Atorvastatin Calcium (Lipitor) 80 mg DAILY@21 PO Last administered on 20:51; Admin Dose 80 MG; Start 12/06/16 at 21:00 Polyethylene Glycol (Miralax) 17 gm DAILY PO Last administered on 12/22/16 09: 41; Admin Dose 17 GM; Start 12/07/16 at 09:00 Docusate Sodium (Colace) 100 mg BID PO Last administered on 12/22/16 09:09; Admin Dose 100 MG; Start 12/06/16 at 21:00 Metoprolol Tartrate (Lopressor) 100 mg BID PO Last administered on 12/22/16 09 :40; Admin Dose 100 MG; Start 12/06/16 at 21:00 Vitamin B Complex/ Vitamin C (Berocca) 1 cap BID PO Last administered on 09:08; Admin Dose 1 CAP; Start 12/06/16 at 21:00 Cholecalciferol (Vitamin D) 400 units DAILY PO Last administered on 12/22/16 09:07; Admin Dose 400 UNITS; Start 12/07/16 at 09:00 Pantoprazole (Protonix Tab) 40 mg DAILY@06 PO Last administered on 12/22/16 06 :29; Admin Dose 40 MG; Start 12/07/16 at 06:00 Hydralazine HCl (Apresoline) 50 mg TID PO Last administered on 12/22/16 09:40 ; Admin Dose 50 MG; Start 12/06/16 at 21:00 Methocarbamol (Robaxin) 500 mg TID PRN PO MUSCLE SPASMS Last administered on 08:51; Admin Dose 500 MG; Start 12/06/16 at 17:00 Diphenhydramine HCl (Benadryl) 25 mg Q6H PRN PO ITCHING Last administered on 10:33; Admin Dose 25 MG; Start 12/06/16 at 15:30 Miscellaneous Information 1 ea NOTE XX ; Start 12/06/16 at 16:00 Glucose (Glutose) 15 gm Q15M PRN PO DECREASED GLUCOSE; Start 12/06/16 at 16:00 Glucose (Glutose) 22.5 gm Q15M PRN PO DECREASED GLUCOSE; Start 12/06/16 at 16: 00 Dextrose (D50w Syringe) 25 ml Q15M PRN IV DECREASED GLUCOSE; Start 12/06/16 at 16:00 Dextrose (D50w Syringe) 50 ml Q15M PRN IV DECREASED GLUCOSE; Start 12/06/16 at 16:00 Glucagon (Glucagen) 1 mg Q15M PRN IM DECREASED GLUCOSE; Start 12/06/16 at 16:00 Glucose (Glutose) 15 gm Q15M PRN BUCCAL DECREASED GLUCOSE; Start 12/06/16 at 16 :00 Acetaminophen (Tylenol Tab) 650 mg Q4H PRN PO PAIN; Start 12/06/16 at 17:00 Magnesium Hydroxide (Milk Of Mag) 30 ml BID PRN PO CONSTIPATION; Start at 17:00 Lactulose (Enulose) 20 gm DAILY PRN PO CONSTIPATION; Start 12/06/16 at 17:00 Oxycodone HCl (Oxycontin) 10 mg Q8 PO Last administered on 12/22/16 06:30; Admin Dose 10 MG; Start 12/07/16 at 11:30 Bisacodyl (Dulcolax Supp) 10 mg DAILY [place] ; Start 12/08/16 at 09:00 Phenazopyridine HCl (Pyridium) 100 mg TID PO Last administered on 12/22/16 09: 07; Admin Dose 100 MG; Start 12/12/16 at 21:00 Hydromorphone HCl (Dilaudid) 0.5 mg Q3H PRN IV PAIN Last administered on 12/22/16 11:34; Admin Dose 0.5 MG; Start 12/13/16 at 11:10 Senna (Senokot) 2 tab HS PO Last administered on 12/21/16 20:51; Admin Dose 2 TAB; Start 12/13/16 at 21:00 Warfarin Sodium (Coumadin) 5 mg DAILY@17 PO Last administered on 12/17/16 19: 08; Admin Dose 5 MG; Start 12/15/16 at 17:00; Status Future Hold Gabapentin (Neurontin) 300 mg DAILY PO Last administered on 12/22/16 09:08; Admin Dose 300 MG; Start 12/20/16 at 09:00 Assessment/Plan Chief Complaint/Hosp Course 1. History of P-atrial fibrillation. Currently in NSR 2. History of CVA 3. Hypertension. 4. Renal failure, on dialysis. 5. History of dyslipidemia. 6. History of multiple infections. 7. Discitis. 8. Severe anemia. 9. History of deep vein thrombosis. 10. hyper K: to be corrected by HD. coumadin is on hold in anticipation for HD access placement tomorrow evening. will resume coumadin after HD access is placed. ECHO shows normal EF AND LA size. cont betablocker. HD as per renal Cont PT as tolerated. pain management as per IM THANK YOU Problems: TAMERA BAILEY MD Dec 22, 2016 14:45
--- NOTE | 2016-12-22 14:55 | PN ---
Date/Time of Note Date/Time of Note DATE: 12/22/16 TIME: 14:54 Assessment/Plan Lines/Catheters IV Catheter Type (from Nrsg): DORIS CATH Lara in Place (from Nrsg): No Assessment/Plan Chief Complaint/Hosp Course Chronic kidney disease INR 1.47 today Plan for AV fistula and permacatheter placement if Tomorrow if INR 1.3 or less We will hold off on Coumadin Problems: Subjective 24 Hr Interval Summary Constitutional: improved Pain Control: mild Exam/Review of Systems Vital Signs Vitals Vital Signs Date Time Temp Pulse Resp B/P Pulse Ox O2 Delivery O2 Flow Rate FiO2 12/22/16 09:08 73 20 93 Nasal Cannula 2.0 12/22/16 07:46 98.4 122/61 12/20/16 07:35 21 Intake and Output 12/21/16 12/21/16 12/22/16 15:00 23:00 07:00 Intake Total 1020 ml 320 ml Output Total 5402 ml Balance -4382 ml 320 ml Exam ENMT: mucosa pink and moist, nl external ears & nose, nl lips & teeth, nl nasal mucosa & septum Neck: non-tender, supple Respiratory: clear to auscultation, normal air movement Cardiovascular: nl pulses, regular rate and rhythm Gastrointestinal: nl liver, spleen, non-tender, soft Results Result Diagram: 12/22/16 0628 12/22/16 0628 ROSALIND PINEDA MD Dec 22, 2016 14:55
--- NOTE | 2016-12-22 16:04 | PN ---
Date/Time of Note Date/Time of Note DATE: 12/22/16 TIME: 16:03 Assessment/Plan VTE Prophylaxis VTE Prophylaxis Intervention: other Lines/Catheters IV C[facility]ter Type (from [facility]): DORIS CATH Urinary Cath still in place: No Assessment/Plan Assessment/Plan ASSESSMENT AND PLAN: 1. End-stage renal disease. The patient is scheduled for hemodialysis in am. 2. Access: Patient is pending PermCath placement AV fistula this week by Dr. Mack. 3. Anemia. The etiology is likely from chronic disease. The patient is on Epogen. Please note, there is a component of iron deficiency. The patient is status post IV Ferrlecit. Will continue to monitor closely. 4. Mineral bone disorder. Monitor calcium and phosphorus levels. 5. Hypertension. Continue current blood pressure regimen. 6. Osteomyelitis, status post laminectomy. The patient completed antibiotic course. 7. Urinary tract infection. Continue current antibiotic regimen. 8. Myoclonic jerks. Etiology may be secondary Neurontin. Dose was adjusted. Continue to monitor. 9. T7 incomplete paraplegia. Continue physical therapy. 10. History of deep vein thrombosis. The patient's Coumadin. Will hold due to surgery plan in the next one to two days. 11. Paroxysmal atrial fibrillation. Currently sinus rhythm. Continue current medical management. Follow up with Cardiology. 12. Diabetes. Continue Accu-Cheks and insulin sliding scale. 13. Encephalopathy, improving. 14. History of cerebrovascular accident. 15. Chronic obstructive pulmonary disease. Continue current treatment plan. 16. Gastrointestinal and deep venous thrombosis prophylaxis. Continue PPI and sequential leg squeezers. Subjective 24 Hr Interval Summary Free Text/Dictation SUBJECTIVE DATA: The patient is stable. No events overnight. The patient is scheduled for hemodialysis in am OBJECTIVE DATA: HEENT: Head is normocephalic. NECK: Supple. HEART: Regular rate. LUNGS: Diminished breath sounds at the base. ABDOMEN: Soft, nontender to palpation. No rebound or guarding. EXTREMITIES: Negative for clubbing, cyanosis, no edema. DERMATOLOGIC: No rashes. MUSCULOSKELETAL: No joint effusion. NEUROLOGIC: No change in exam. MEDICATIONS: Reviewed. Exam/Review of Systems Vital Signs Vitals Vital Signs Date Time Temp Pulse Resp B/P Pulse Ox O2 Delivery O2 Flow Rate FiO2 12/22/16 09:08 73 20 93 Nasal Cannula 2.0 12/22/16 07:46 98.4 122/61 12/20/16 07:35 21 Intake and Output 12/21/16 12/21/16 12/22/16 15:00 23:00 07:00 Intake Total 1420 ml 320 ml Output Total 8302 ml Balance -6882 ml 320 ml Results Result Diagram: 12/22/16 0628 12/22/16 0628 Results 24 hrs Laboratory Tests Test 12/21/16 17:18 12/21/16 18:13 12/21/16 21:02 12/22/16 03:05 Bedside Glucose 186 197 151 107 Test 12/22/16 06:28 12/22/16 08:06 12/22/16 12:20 White Blood Count 10.3 Red Blood Count 2.64 L Hemoglobin 7.8 L Hematocrit 27.2 L Mean Corpuscular Volume 103.0 H Mean Corpuscular Hemoglobin 29.5 Mean Corpuscular Hemoglobin Concent 28.7 L Red Cell Distribution Width 16.1 H Platelet Count 403 Mean Platelet Volume 7.9 Neutrophils % 61.0 Lymphocytes % 22.8 Monocytes % 6.0 Eosinophils % 9.1 H Basophils % 0.5 Nucleated Red Blood Cells % 0.0 Neutrophils # (Manual) 6.3 Lymphocytes # 2.3 Monocytes # 0.6 Eosinophils # 0.9 H Basophils # 0.1 Nucleated Red Blood Cells # 0.0 Prothrombin Time 17.9 H Prothrombin Time Ratio 1.4 INR International Normalized Ratio 1.47 Sodium Level 136 Potassium Level 4.3 Chloride Level 100 Carbon Dioxide Level 29 Anion Gap 11 Blood Urea Nitrogen 32 H Creatinine 3.06 H Glucose Level 83 Calcium Level 8.4 Phosphorus Level 3.2 Magnesium Level 2.4 Bedside Glucose 90 129 Medications Medications Current Medications Sertraline HCl (Zoloft) 100 mg DAILY PO Last administered on 12/22/16 09:09; Admin Dose 100 MG; Start 12/07/16 at 09:00 Amlodipine Besylate (Norvasc) 5 mg BID PO Last administered on 12/22/16 09:41 ; Admin Dose 5 MG; Start 12/06/16 at 21:00 Losartan Potassium (Cozaar) 50 mg BID PO Last administered on 12/22/16 09:47; Admin Dose 50 MG; Start 12/06/16 at 21:00 Atorvastatin Calcium (Lipitor) 80 mg DAILY@21 PO Last administered on 20:51; Admin Dose 80 MG; Start 12/06/16 at 21:00 Polyethylene Glycol (Miralax) 17 gm DAILY PO Last administered on 12/22/16 09: 41; Admin Dose 17 GM; Start 12/07/16 at 09:00 Docusate Sodium (Colace) 100 mg BID PO Last administered on 12/22/16 09:09; Admin Dose 100 MG; Start 12/06/16 at 21:00 Metoprolol Tartrate (Lopressor) 100 mg BID PO Last administered on 12/22/16 09 :40; Admin Dose 100 MG; Start 12/06/16 at 21:00 Vitamin B Complex/ Vitamin C (Berocca) 1 cap BID PO Last administered on 09:08; Admin Dose 1 CAP; Start 12/06/16 at 21:00 Cholecalciferol (Vitamin D) 400 units DAILY PO Last administered on 12/22/16 09:07; Admin Dose 400 UNITS; Start 12/07/16 at 09:00 Pantoprazole (Protonix Tab) 40 mg DAILY@06 PO Last administered on 12/22/16 06 :29; Admin Dose 40 MG; Start 12/07/16 at 06:00 Hydralazine HCl (Apresoline) 50 mg TID PO Last administered on 12/22/16 15:16 ; Admin Dose 50 MG; Start 12/06/16 at 21:00 Methocarbamol (Robaxin) 500 mg TID PRN PO MUSCLE SPASMS Last administered on 08:51; Admin Dose 500 MG; Start 12/06/16 at 17:00 Diphenhydramine HCl (Benadryl) 25 mg Q6H PRN PO ITCHING Last administered on 10:33; Admin Dose 25 MG; Start 12/06/16 at 15:30 Miscellaneous Information 1 ea NOTE XX ; Start 12/06/16 at 16:00 Glucose (Glutose) 15 gm Q15M PRN PO DECREASED GLUCOSE; Start 12/06/16 at 16:00 Glucose (Glutose) 22.5 gm Q15M PRN PO DECREASED GLUCOSE; Start 12/06/16 at 16: 00 Dextrose (D50w Syringe) 25 ml Q15M PRN IV DECREASED GLUCOSE; Start 12/06/16 at 16:00 Dextrose (D50w Syringe) 50 ml Q15M PRN IV DECREASED GLUCOSE; Start 12/06/16 at 16:00 Glucagon (Glucagen) 1 mg Q15M PRN IM DECREASED GLUCOSE; Start 12/06/16 at 16:00 Glucose (Glutose) 15 gm Q15M PRN BUCCAL DECREASED GLUCOSE; Start 12/06/16 at 16 :00 Acetaminophen (Tylenol Tab) 650 mg Q4H PRN PO PAIN; Start 12/06/16 at 17:00 Magnesium Hydroxide (Milk Of Mag) 30 ml BID PRN PO CONSTIPATION; Start at 17:00 Lactulose (Enulose) 20 gm DAILY PRN PO CONSTIPATION; Start 12/06/16 at 17:00 Oxycodone HCl (Oxycontin) 10 mg Q8 PO Last administered on 12/22/16 06:30; Admin Dose 10 MG; Start 12/07/16 at 11:30 Bisacodyl (Dulcolax Supp) 10 mg DAILY MO ; Start 12/08/16 at 09:00 Phenazopyridine HCl (Pyridium) 100 mg TID PO Last administered on 12/22/16 15: 16; Admin Dose 100 MG; Start 12/12/16 at 21:00 Hydromorphone HCl (Dilaudid) 0.5 mg Q3H PRN IV PAIN Last administered on 12/22/16 14:58; Admin Dose 0.5 MG; Start 12/13/16 at 11:10 Senna (Senokot) 2 tab HS PO Last administered on 12/21/16 20:51; Admin Dose 2 TAB; Start 12/13/16 at 21:00 Warfarin Sodium (Coumadin) 5 mg DAILY@17 PO Last administered on 12/17/16 19: 08; Admin Dose 5 MG; Start 12/15/16 at 17:00; Status Future Hold Gabapentin (Neurontin) 300 mg DAILY PO Last administered on 12/22/16 09:08; Admin Dose 300 MG; Start 12/20/16 at 09:00 CHANDA ROJAS DO Dec 22, 2016 16:04
--- NOTE | 2016-12-22 18:45 | RADRPT ---
PROCEDURE: US bilateral upper extremity Venous. CLINICAL INDICATION: Renal failure, vein mapping TECHNIQUE: Multiple sonographic images of the bilateral upper extremity deep an superficial venous system was obtained utilizing grayscale, color-flow, compressive sonography and doppler imaging wit h augmentation. Measurements were performed. The images were reviewed on a PACS workstation. COMPARISON: None. FINDINGS: RIGHT UPPER EXTREMITY Right basilic vein size: Proximal: 3.7 mm Mid aspect: 3.0 mm Antecubital: 2.6 mm Right basilic vein size in the forearm: Proximal: 2.2 mm Mid: 1.4 mm Wrist: 1.7 mm Right cephalic vein size: Proximal: 2.8 mm Mid aspect: 2.2 mm Distal: 1.2 mm Right cephalic vein size in the forearm: Proximal: 1.4 mm Mid aspect: 1.2 mm Wrist: 1.7 mm LEFT UPPER EXTREMITY Left basilic vein size: Proximal: 4.4 mm Mid aspect: 3.6 mm Antecubital: 2.1 mm Left basilic vein size in the forearm: Proximal colon 1.6 mm Mid: 1.4 mm Wrist: 1.1 mm Left cephalic vein size: Proximal: 3.0 mm Mid aspect: 2.2 mm Distal: 1.4 mm Left cephalic vein size in the forearm: Proximal: 1.3 mm Mid aspect: 1.0 mm Wrist: 1.0 mm IMPRESSION: Vein mapping as described. RPTAT: [facility] Physician Tex Date Time Electronically viewed and signed by Physician Tex on 12/22/2016 18:44 RA/
[2016-12-22 20:00] VITALS: BP 129/61; RESP 18
[2016-12-22] MEDS: SENNA TAB PO SCH (21:00)
[2016-12-22] MEDS: ATORVASTATIN 80 MG TAB PO SCH (21:05)
[2016-12-23] VITALS (19 sets, daily range): BP systolic 102–193; BP diastolic 58–79; PULSE 74–80; RESP 12–18
[2016-12-23] MEDS: oxyCODONE (CR) 10 MG TAB [oxyCONTIN] PO SCH ×3 (05:24→22:13)
[2016-12-23] MEDS: PANTOPRAZOLE (EC) 40 MG TAB PO SCH (05:25)
[2016-12-23] MEDS: HYDROmorphONE 1 MG/ML SYG IV PRN ×6 (05:39→20:51)
[2016-12-23] MEDS ORDERED: CEFAZOLIN 1 GM INJ ONE (07:00)
[2016-12-23] MEDS: Insulin ASPART slide scale (Novolog) SC SCH ×4 (07:05→21:00)
[2016-12-23 07:23] LABS: INR 1.22; PROTIME 15.5 Sec (12.2-14.2); PT RATIO 1.2
[2016-12-23] MEDS: SEVELAMER 800 MG TAB PO SCH ×3 (07:35→17:35)
--- NOTE | 2016-12-23 08:41 | CONS ---
Date/Time of Note Date/Time of Note DATE: 12/23/16 TIME: 08:40 Consult Date/Type/Reason Admit Date/Time Dec 06, 2016 at 10:56 Initial Consult Date 12/10/16 Type of Consultation: CARDIOLOGY Subjective CARDIOLOGY FOLLOW UP d/w staff. pt with c/o left hip pain now this am. no chest pain or pressure. no palpitations or bleeding no bleeding. OBJECTIVE: General: no acute distress. Obese female. HEENT: NC/AT. pupils are equal. round. NECK: NO JVD. no stridor. CV: RRR. systolic murmur; no gallop or rubs. chest: s/p R HD access in place. PULM: no wheezing or rhonchi. GI: SOFT, NT, ND, no rebound or guarding. Obese Extremity: + B/L LE edema. no clubbing. neuro: drowsy but responds appropriately Psych: calm and pleasant rectal: deferred Objective Vital Signs Date Time Temp Pulse Resp B/P Pulse Ox O2 Delivery O2 Flow Rate FiO2 12/23/16 07:25 98.3 71 18 121/58 96 12/23/16 05:31 2.0 12/22/16 20:12 Nasal Cannula 12/20/16 07:35 21 Intake and Output 12/22/16 12/22/16 12/23/16 15:00 23:00 07:00 Intake Total 800 ml 360 ml 300 ml Balance 800 ml 360 ml 300 ml Results/Medications Result Diagram: 12/22/16 0628 12/22/16 0628 Results 24 hrs Laboratory Tests Test 12/22/16 12:20 12/22/16 17:23 12/22/16 21:15 12/22/16 22:06 Bedside Glucose 129 144 163 174 Test 12/23/16 02:09 12/23/16 06:28 12/23/16 08:15 Bedside Glucose 141 96 Prothrombin Time 15.5 H Prothrombin Time Ratio 1.2 INR International Normalized Ratio 1.22 Medications Current Medications Sertraline HCl (Zoloft) 100 mg DAILY PO Last administered on 12/22/16 09:09; Admin Dose 100 MG; Start 12/07/16 at 09:00 Amlodipine Besylate (Norvasc) 5 mg BID PO Last administered on 12/22/16 21:06 ; Admin Dose 5 MG; Start 12/06/16 at 21:00 Losartan Potassium (Cozaar) 50 mg BID PO Last administered on 12/22/16 21:05; Admin Dose 50 MG; Start 12/06/16 at 21:00 Atorvastatin Calcium (Lipitor) 80 mg DAILY@21 PO Last administered on 21:05; Admin Dose 80 MG; Start 12/06/16 at 21:00 Polyethylene Glycol (Miralax) 17 gm DAILY PO Last administered on 12/22/16 09: 41; Admin Dose 17 GM; Start 12/07/16 at 09:00 Docusate Sodium (Colace) 100 mg BID PO Last administered on 12/22/16 09:09; Admin Dose 100 MG; Start 12/06/16 at 21:00 Metoprolol Tartrate (Lopressor) 100 mg BID PO Last administered on 12/22/16 21 :06; Admin Dose 100 MG; Start 12/06/16 at 21:00 Vitamin B Complex/ Vitamin C (Berocca) 1 cap BID PO Last administered on 21:04; Admin Dose 1 CAP; Start 12/06/16 at 21:00 Cholecalciferol (Vitamin D) 400 units DAILY PO Last administered on 12/22/16 09:07; Admin Dose 400 UNITS; Start 12/07/16 at 09:00 Pantoprazole (Protonix Tab) 40 mg DAILY@06 PO Last administered on 12/22/16 06 :29; Admin Dose 40 MG; Start 12/07/16 at 06:00 Hydralazine HCl (Apresoline) 50 mg TID PO Last administered on 12/22/16 21:05 ; Admin Dose 50 MG; Start 12/06/16 at 21:00 Methocarbamol (Robaxin) 500 mg TID PRN PO MUSCLE SPASMS Last administered on 08:51; Admin Dose 500 MG; Start 12/06/16 at 17:00 Diphenhydramine HCl (Benadryl) 25 mg Q6H PRN PO ITCHING Last administered on 10:33; Admin Dose 25 MG; Start 12/06/16 at 15:30 Miscellaneous Information 1 ea NOTE XX ; Start 12/06/16 at 16:00 Glucose (Glutose) 15 gm Q15M PRN PO DECREASED GLUCOSE; Start 12/06/16 at 16:00 Glucose (Glutose) 22.5 gm Q15M PRN PO DECREASED GLUCOSE; Start 12/06/16 at 16: 00 Dextrose (D50w Syringe) 25 ml Q15M PRN IV DECREASED GLUCOSE; Start 12/06/16 at 16:00 Dextrose (D50w Syringe) 50 ml Q15M PRN IV DECREASED GLUCOSE; Start 12/06/16 at 16:00 Glucagon (Glucagen) 1 mg Q15M PRN IM DECREASED GLUCOSE; Start 12/06/16 at 16:00 Glucose (Glutose) 15 gm Q15M PRN BUCCAL DECREASED GLUCOSE; Start 12/06/16 at 16 :00 Acetaminophen (Tylenol Tab) 650 mg Q4H PRN PO PAIN; Start 12/06/16 at 17:00 Magnesium Hydroxide (Milk Of Mag) 30 ml BID PRN PO CONSTIPATION; Start at 17:00 Lactulose (Enulose) 20 gm DAILY PRN PO CONSTIPATION; Start 12/06/16 at 17:00 Oxycodone HCl (Oxycontin) 10 mg Q8 PO Last administered on 12/22/16 21:05; Admin Dose 10 MG; Start 12/07/16 at 11:30 Bisacodyl (Dulcolax Supp) 10 mg DAILY ND ; Start 12/08/16 at 09:00 Phenazopyridine HCl (Pyridium) 100 mg TID PO Last administered on 12/22/16 21: 05; Admin Dose 100 MG; Start 12/12/16 at 21:00 Hydromorphone HCl (Dilaudid) 0.5 mg Q3H PRN IV PAIN Last administered on 12/23/16 08:28; Admin Dose 0.5 MG; Start 12/13/16 at 11:10 Senna (Senokot) 2 tab HS PO Last administered on 12/21/16 20:51; Admin Dose 2 TAB; Start 12/13/16 at 21:00 Warfarin Sodium (Coumadin) 5 mg DAILY@17 PO Last administered on 12/17/16 19: 08; Admin Dose 5 MG; Start 12/15/16 at 17:00; Status Future Hold Gabapentin (Neurontin) 300 mg DAILY PO Last administered on 12/22/16 09:08; Admin Dose 300 MG; Start 12/20/16 at 09:00 Assessment/Plan Chief Complaint/Hosp Course 1. History of P-atrial fibrillation. Currently in NSR 2. History of CVA 3. Hypertension. 4. Renal failure, on dialysis. 5. History of dyslipidemia. 6. History of multiple infections. 7. Discitis. 8. Severe anemia. 9. History of deep vein thrombosis. 10. hyper K: to be corrected by HD. coumadin is on hold in anticipation for HD access placement tonight. resume coumadin TIONIGHT once HD access is placed if ok with Dr Mack. ECHO shows normal EF AND LA size. cont betablocker. HD as per renal Cont PT as tolerated. pain management as per IM THANK YOU Problems: TAMERA BAILEY MD Dec 23, 2016 08:41
--- NOTE | 2016-12-23 08:58 | PN ---
Date/Time of Note Date/Time of Note DATE: 12/23/16 TIME: 08:56 Assessment/Plan VTE Prophylaxis VTE Prophylaxis Intervention: other Lines/Catheters [facility] Type [facility]from [facility] DORIS Urinary Cath still in place: No Assessment/Plan Chief Complaint/Hosp Course 1. End-stage renal disease. The patient is scheduled for hemodialysis today 2. Access: Patient is pending PermCath placement AV fistula this week by Dr. Mack. 3. Anemia. The etiology is likely from chronic disease. The patient is on Epogen. Please note, there is a component of iron deficiency. The patient is status post IV Ferrlecit. Will continue to monitor closely. 4. Mineral bone disorder. Monitor calcium and phosphorus levels. 5. Hypertension. Continue current blood pressure regimen. 6. Osteomyelitis, status post laminectomy. The patient completed antibiotic course. 7. Urinary tract infection. Continue current antibiotic regimen. 8. Myoclonic jerks. Etiology may be secondary Neurontin. Dose was adjusted. Continue to monitor. 9. T7 incomplete paraplegia. Continue physical therapy. 10. History of deep vein thrombosis. The patient's Coumadin. Will hold due to surgery plan in the next one to two days. 11. Paroxysmal atrial fibrillation. Currently sinus rhythm. Continue current medical management. Follow up with Cardiology. 12. Diabetes. Continue Accu-Cheks and insulin sliding scale. 13. Encephalopathy, improving. 14. History of cerebrovascular accident. 15. Chronic obstructive pulmonary disease. Continue current treatment plan. 16. Gastrointestinal and deep venous thrombosis prophylaxis. Continue PPI and sequential leg squeezers. medicine/nephrology follow up SUBJECTIVE DATA: The patient is stable. No events overnight. The patient is scheduled for hemodialysis today complaining of sciatic pain OBJECTIVE DATA: HEENT: Head is normocephalic. NECK: Supple. HEART: Regular rate. LUNGS: Diminished breath sounds at the base. ABDOMEN: Soft, nontender to palpation. No rebound or guarding. EXTREMITIES: Negative for clubbing, cyanosis, no edema. DERMATOLOGIC: No rashes. MUSCULOSKELETAL: No joint effusion. NEUROLOGIC: No change in exam. MEDICATIONS: Reviewed. Problems: Exam/Review of Systems Vital Signs Vitals Vital Signs Date Time Temp Pulse Resp B/P Pulse Ox O2 Delivery O2 Flow Rate FiO2 12/23/16 07:25 98.3 71 18 121/58 96 8/16/17 05:31 2.0 12/22/16 20:12 Nasal Cannula 12/20/16 07:35 21 Intake and Output 12/22/16 12/22/16 12/23/16 14:59 22:59 06:59 Intake Total 800 ml 360 ml 300 ml Balance 800 ml 360 ml 300 ml Results Result Diagram: 12/22/16 0628 12/22/16 0628 Results 24 hrs Laboratory Tests Test 12/22/16 12:20 12/22/16 17:23 12/22/16 21:15 12/22/16 22:06 Bedside Glucose 129 144 163 174 Test 12/23/16 02:09 12/23/16 06:28 12/23/16 08:15 Bedside Glucose 141 96 Prothrombin Time 15.5 H Prothrombin Time Ratio 1.2 INR International Normalized Ratio 1.22 Medications Medications Current Medications Sertraline HCl (Zoloft) 100 mg DAILY PO Last administered on 12/22/16 09:09; Admin Dose 100 MG; Start 12/07/16 at 09:00 Amlodipine Besylate (Norvasc) 5 mg BID PO Last administered on 12/22/16 21:06 ; Admin Dose 5 MG; Start 12/06/16 at 21:00 Losartan Potassium (Cozaar) 50 mg BID PO Last administered on 12/22/16 21:05; Admin Dose 50 MG; Start 12/06/16 at 21:00 Atorvastatin Calcium (Lipitor) 80 mg DAILY@21 PO Last administered on 21:05; Admin Dose 80 MG; Start 12/06/16 at 21:00 Polyethylene Glycol (Miralax) 17 gm DAILY PO Last administered on 12/22/16 09: 41; Admin Dose 17 GM; Start 12/07/16 at 09:00 Docusate Sodium (Colace) 100 mg BID PO Last administered on 12/22/16 09:09; Admin Dose 100 MG; Start 12/06/16 at 21:00 Metoprolol Tartrate (Lopressor) 100 mg BID PO Last administered on 12/22/16 21 :06; Admin Dose 100 MG; Start 12/06/16 at 21:00 Vitamin B Complex/ Vitamin C (Berocca) 1 cap BID PO Last administered on 21:04; Admin Dose 1 CAP; Start 12/06/16 at 21:00 Cholecalciferol (Vitamin D) 400 units DAILY PO Last administered on 12/22/16 09:07; Admin Dose 400 UNITS; Start 12/07/16 at 09:00 Pantoprazole (Protonix Tab) 40 mg DAILY@06 PO Last administered on 12/22/16 06 :29; Admin Dose 40 MG; Start 12/07/16 at 06:00 Hydralazine HCl (Apresoline) 50 mg TID PO Last administered on 12/22/16 21:05 ; Admin Dose 50 MG; Start 12/06/16 at 21:00 Methocarbamol (Robaxin) 500 mg TID PRN PO MUSCLE SPASMS Last administered on 08:51; Admin Dose 500 MG; Start 12/06/16 at 17:00 Diphenhydramine HCl (Benadryl) 25 mg Q6H PRN PO ITCHING Last administered on 10:33; Admin Dose 25 MG; Start 12/06/16 at 15:30 Miscellaneous Information 1 ea NOTE XX ; Start 12/06/16 at 16:00 Glucose (Glutose) 15 gm Q15M PRN PO DECREASED GLUCOSE; Start 12/06/16 at 16:00 Glucose (Glutose) 22.5 gm Q15M PRN PO DECREASED GLUCOSE; Start 12/06/16 at 16: 00 Dextrose (D50w Syringe) 25 ml Q15M PRN IV DECREASED GLUCOSE; Start 12/06/16 at 16:00 Dextrose (D50w Syringe) 50 ml Q15M PRN IV DECREASED GLUCOSE; Start 12/06/16 at 16:00 Glucagon (Glucagen) 1 mg Q15M PRN IM DECREASED GLUCOSE; Start 12/06/16 at 16:00 Glucose (Glutose) 15 gm Q15M PRN BUCCAL DECREASED GLUCOSE; Start 12/06/16 at 16 :00 Acetaminophen (Tylenol Tab) 650 mg Q4H PRN PO PAIN; Start 12/06/16 at 17:00 Magnesium Hydroxide (Milk Of Mag) 30 ml BID PRN PO CONSTIPATION; Start at 17:00 Lactulose (Enulose) 20 gm DAILY PRN PO CONSTIPATION; Start 12/06/16 at 17:00 Oxycodone HCl (Oxycontin) 10 mg Q8 PO Last administered on 12/22/16 21:05; Admin Dose 10 MG; Start 12/07/16 at 11:30 Bisacodyl (Dulcolax Supp) 10 mg DAILY NM ; Start 12/08/16 at 09:00 Phenazopyridine HCl (Pyridium) 100 mg TID PO Last administered on 12/22/16 21: 05; Admin Dose 100 MG; Start 12/12/16 at 21:00 Hydromorphone HCl (Dilaudid) 0.5 mg Q3H PRN IV PAIN Last administered on 12/23/16 08:28; Admin Dose 0.5 MG; Start 12/13/16 at 11:10 Senna (Senokot) 2 tab HS PO Last administered on 12/21/16 20:51; Admin Dose 2 TAB; Start 12/13/16 at 21:00 Warfarin Sodium (Coumadin) 5 mg DAILY@17 PO Last administered on 12/17/16 19: 08; Admin Dose 5 MG; Start 12/15/16 at 17:00; Status Future Hold Gabapentin (Neurontin) 300 mg DAILY PO Last administered on 12/22/16 09:08; Admin Dose 300 MG; Start 12/20/16 at 09:00 CHANDA ROJAS DO Dec 23, 2016 08:58
[2016-12-23] MEDS: VITAMIN B COMPLEX/VIT C CAP PO SCH ×2 (09:00→22:10)
[2016-12-23] MEDS: CHOLECALCIFEROL 400 UNITS TAB PO SCH (09:00)
[2016-12-23] MEDS: DOCUSATE SODIUM 100 MG CAP PO SCH ×2 (09:00→22:13)
[2016-12-23] MEDS: GABAPENTIN 300 MG CAP PO SCH (09:00)
[2016-12-23] MEDS: METOPROLOL 100 MG TAB PO SCH ×2 (09:00→21:00)
[2016-12-23] MEDS: SERTRALINE 100 MG TAB PO SCH (09:00)
[2016-12-23] MEDS: BISACODYL 10 MG SUPP PR SCH (09:00)
[2016-12-23] MEDS: LOSARTAN 50 MG TAB PO SCH ×2 (09:00→22:13)
[2016-12-23] MEDS: AMLODIPINE 5 MG TAB PO SCH ×2 (09:00→22:12)
[2016-12-23] MEDS: POLYETHYLENE GLYCOL 17 GM PACKET PO SCH (09:00)
--- NOTE | 2016-12-23 09:25 | CONS ---
Date/Time of Note Date/Time of Note DATE: 12/23/16 TIME: 09:24 Consult Date/Type/Reason Admit Date/Time Dec 06, 2016 at 10:56 Type of Consultation: CARDIOLOGY Subjective In good spirits Objective mod transfers Vital Signs Date Time Temp Pulse Resp B/P Pulse Ox O2 Delivery O2 Flow Rate FiO2 12/23/16 07:25 98.3 71 18 121/58 96 12/23/16 05:31 2.0 12/22/16 20:12 Nasal Cannula 12/20/16 07:35 21 Intake and Output 12/22/16 12/22/16 12/23/16 14:59 22:59 06:59 Intake Total 800 ml 360 ml 300 ml Balance 800 ml 360 ml 300 ml Results/Medications Result Diagram: 12/22/1628 12/22/16627 Results 24 hrs Laboratory Tests Test 12/22/16 12:20 12/22/16 17:23 12/22/16 21:15 12/22/16 22:06 Bedside Glucose 129 144 163 174 Test 12/23/16 02:09 12/23/16 06:28 12/23/16 08:15 Bedside Glucose 141 96 Prothrombin Time 15.5 H Prothrombin Time Ratio 1.2 INR International Normalized Ratio 1.22 Medications Current Medications Sertraline HCl (Zoloft) 100 mg DAILY PO Last administered on 12/22/16 09:09; Admin Dose 100 MG; Start 12/07/16 at 09:00 Amlodipine Besylate (Norvasc) 5 mg BID PO Last administered on 12/22/16 21:06 ; Admin Dose 5 MG; Start 12/06/16 at 21:00 Losartan Potassium (Cozaar) 50 mg BID PO Last administered on 12/22/16 21:05; Admin Dose 50 MG; Start 12/06/16 at 21:00 Atorvastatin Calcium (Lipitor) 80 mg DAILY@21 PO Last administered on 21:05; Admin Dose 80 MG; Start 12/06/16 at 21:00 Polyethylene Glycol (Miralax) 17 gm DAILY PO Last administered on 12/22/16 09: 41; Admin Dose 17 GM; Start 12/07/16 at 09:00 Docusate Sodium (Colace) 100 mg BID PO Last administered on 12/22/16 09:09; Admin Dose 100 MG; Start 12/06/16 at 21:00 Metoprolol Tartrate (Lopressor) 100 mg BID PO Last administered on 12/22/16 21 :06; Admin Dose 100 MG; Start 12/06/16 at 21:00 Vitamin B Complex/ Vitamin C (Berocca) 1 cap BID PO Last administered on 21:04; Admin Dose 1 CAP; Start 12/06/16 at 21:00 Cholecalciferol (Vitamin D) 400 units DAILY PO Last administered on 12/22/16 09:07; Admin Dose 400 UNITS; Start 12/07/16 at 09:00 Pantoprazole (Protonix Tab) 40 mg DAILY@06 PO Last administered on 12/22/16 06 :29; Admin Dose 40 MG; Start 12/07/16 at 06:00 Hydralazine HCl (Apresoline) 50 mg TID PO Last administered on 12/22/16 21:05 ; Admin Dose 50 MG; Start 12/06/16 at 21:00 Methocarbamol (Robaxin) 500 mg TID PRN PO MUSCLE SPASMS Last administered on 08:51; Admin Dose 500 MG; Start 12/06/16 at 17:00 Diphenhydramine HCl (Benadryl) 25 mg Q6H PRN PO ITCHING Last administered on 10:33; Admin Dose 25 MG; Start 12/06/16 at 15:30 Miscellaneous Information 1 ea NOTE XX ; Start 12/06/16 at 16:00 Glucose (Glutose) 15 gm Q15M PRN PO DECREASED GLUCOSE; Start 12/06/16 at 16:00 Glucose (Glutose) 22.5 gm Q15M PRN PO DECREASED GLUCOSE; Start 12/06/16 at 16: 00 Dextrose (D50w Syringe) 25 ml Q15M PRN IV DECREASED GLUCOSE; Start 12/06/16 at 16:00 Dextrose (D50w Syringe) 50 ml Q15M PRN IV DECREASED GLUCOSE; Start 12/06/16 at 16:00 Glucagon (Glucagen) 1 mg Q15M PRN IM DECREASED GLUCOSE; Start 12/06/16 at 16:00 Glucose (Glutose) 15 gm Q15M PRN BUCCAL DECREASED GLUCOSE; Start 12/06/16 at 16 :00 Acetaminophen (Tylenol Tab) 650 mg Q4H PRN PO PAIN; Start 12/06/16 at 17:00 Magnesium Hydroxide (Milk Of Mag) 30 ml BID PRN PO CONSTIPATION; Start at 17:00 Lactulose (Enulose) 20 gm DAILY PRN PO CONSTIPATION; Start 12/06/16 at 17:00 Oxycodone HCl (Oxycontin) 10 mg Q8 PO Last administered on 12/22/16 21:05; Admin Dose 10 MG; Start 12/07/16 at 11:30 Bisacodyl (Dulcolax Supp) 10 mg DAILY [place] ; Start 12/08/16 at 09:00 Hydromorphone HCl (Dilaudid) 0.5 mg Q3H PRN IV PAIN Last administered on 12/23/16 08:28; Admin Dose 0.5 MG; Start 12/13/16 at 11:10 Senna (Senokot) 2 tab HS PO Last administered on 12/21/16 20:51; Admin Dose 2 TAB; Start 12/13/16 at 21:00 Warfarin Sodium (Coumadin) 5 mg DAILY@17 PO Last administered on 12/17/16 19: 08; Admin Dose 5 MG; Start 12/15/16 at 17:00; Status Future Hold Gabapentin (Neurontin) 300 mg DAILY PO Last administered on 12/22/16 09:08; Admin Dose 300 MG; Start 12/20/16 at 09:00 Assessment/Plan Additional Assessment/Plan Rehabilitation-T7 incomplete paraplegia due to epidural abscess/osteomyelitis- status post Thoracic lami drainage of abscess Overall patient has been improving. SW actively working on disposition options. Pulmonary -post operative respiratory failure requiring intubation, with eventual extubation, currently stable Toxic metabolic encephalopathy-continue treatment plan, cognition improving Diabetes Mellitus type 2 ESRD on HD Afib Coronary Artery Disease history of DVT Hypertension Hypercholesterolemia COPD history of CVA anxiety depression ALINE CORREIA MD Dec 23, 2016 09:25
[2016-12-23] MEDS: ALBUTEROL/IPRATROPIUM (NEB) 3 ML AMP HHN SCH ×4 (09:43→20:00)
[2016-12-23] MEDS: DEXTROSE 5%-0.45% NACL 1,000 ML IV SCH (16:36)
[2016-12-23] MEDS ORDERED: GELATIN SIZE 100 SPONGE ONE ×2 (17:30→19:02)
[2016-12-23] MEDS ORDERED: LIDOCAINE 1% (MPF) 30 ML INJ ONE (17:30)
[2016-12-23] MEDS ORDERED: THROMBIN 5000 UNIT VIAL ONE (17:30)
[2016-12-23] MEDS ORDERED: BUPIVACAINE 0.25% (MPF) 30 ML INJ ONE ×2 (17:31→19:12)
[2016-12-23] MEDS ORDERED: HEPARIN 1000 UNITS/ML 10 ML INJ ONE ×2 (17:32→19:21)
[2016-12-23] MEDS ORDERED: MIDAZOLAM 1 MG/ML 2 ML INJ ONE (17:56)
[2016-12-23] MEDS ORDERED: FENTAnyl 50 MCG/ML VIAL ONE (17:56)
[2016-12-23] MEDS ORDERED: PROPOFOL 20 ML ONE (17:56)
[2016-12-23] MEDS ORDERED: ROPIVACAINE 0.5 % 30 ML VIAL ONE (17:57)
--- NOTE | 2016-12-23 18:23 | PN ---
Date/Time of Note Date/Time of Note DATE: 12/23/16 TIME: 18:22 Assessment/Plan Lines/Catheters IV Catheter Type (from Nrsg): DORIS Lara in Place (from Nrsg): No Assessment/Plan Chief Complaint/Hosp Course Chronic kidney disease INR 1.22 today Plan for AV fistula and permacatheter placement Today We will hold off on Coumadin Problems: Subjective 24 Hr Interval Summary Constitutional: improved Pain Control: mild Exam/Review of Systems Vital Signs Vitals Vital Signs Date Time Temp Pulse Resp B/P Pulse Ox O2 Delivery O2 Flow Rate FiO2 12/23/16 15:03 2.0 12/23/16 15:02 80 18 96 Nasal Cannula 12/23/16 07:25 98.3 121/58 12/20/16 07:35 21 Intake and Output 12/22/16 12/22/16 12/23/16 15:00 23:00 07:00 Intake Total 800 ml 360 ml 300 ml Balance 800 ml 360 ml 300 ml Exam ENMT: mucosa pink and moist, nl external ears & nose, nl lips & teeth, nl nasal mucosa & septum Neck: non-tender, supple Respiratory: clear to auscultation, normal air movement Cardiovascular: nl pulses, regular rate and rhythm Gastrointestinal: nl liver, spleen, non-tender, soft Results Result Diagram: 12/22/16 0628 12/23/16 1623 ROSALIND PINEDA MD Dec 23, 2016 18:23
[2016-12-23] MEDS ORDERED: LIDOCAINE 1% (MDV) 20 ML INJ ONE (18:52)
[2016-12-23] MEDS ORDERED: IOHEXOL 300MG/ML 30 ML BTL ONE (18:58)
[2016-12-23] MEDS ORDERED: ONDANSETRON 4 MG INJ ONE (19:19)
[2016-12-23] MEDS ORDERED: METOCLOPRAMIDE 10 MG INJ ONE (19:19)
[2016-12-23] MEDS ORDERED: DEXAMETHASONE 4 MG/ML 1 ML INJ ONE (19:19)
[2016-12-23] MEDS ORDERED: EPHEDrine SULFATE 50 MG/5 ML SYG IV PRN (19:30)
[2016-12-23] MEDS ORDERED: MEPERIDINE 25 MG INJ IV PRN (19:30)
[2016-12-23] MEDS ORDERED: hydrALAzine 20 MG INJ IV PRN (19:30)
[2016-12-23] MEDS ORDERED: ONDANSETRON 4 MG INJ IV PRN (19:30)
[2016-12-23] MEDS ORDERED: FENTAnyl 50 MCG/ML VIAL IV PRN ×3 (19:30)
[2016-12-23] MEDS ORDERED: LABETALOL HCL 20MG INJ IV PRN (19:30)
[2016-12-23] MEDS ORDERED: DIPHENHYDRAMINE 50 MG INJ IV PRN (19:30)
--- NOTE | 2016-12-23 20:16 | OPR ---
Date/Time of Note Date/Time of Note DATE: 12/23/16 TIME: 20:11 Operative Report Procedure Date: Dec 23, 2016 Preoperative Diagnosis End-stage renal disease Postoperative Diagnosis End-stage renal disease Operation Performed 1 Right internal jugular vein tunneled hematemesis catheter placement 2 superior venacavogram 3 catheter introduction to the superior vena cava 4 interpretation supervision of the superior venacavogram 5 fluoroscopy 6 ultrasound guidance into the central 7 left arm arteriovenous fistula placement Surgeon: ROSALIND PINEDA MD Anesthesia Type: MAC Estimated Blood Loss: minimal Transfusion Required: no Specimen: none Grafts/Implants: none Complications: no Pt Condition Post Procedure: stable Disposition: PACU Indications End-stage renal disease Operative\Procedure Findings Dictated Procedure Description Patient was placed in supine position prepped and draped in usual sterile fashion 1% lidocaine was discharged the operation for local anesthesia timeout was called antibiotics was given and I started Access was gained the right internal jugular vein using ultrasound guidance guidewire was advanced under fluoroscopic guidance 19 cm tunneled hemodialysis catheter was brought into the subcutaneous tunnel advanced into the right internal jugular vein superior vena cava all under fluoroscopic guidance the tip was placed at the junction of the superior vena cava right atrium contrast venography was done no evidence of any bleeding or extravasation was noted the catheter was secured to skin using 2-0 nylon sutures the next site and exit site was closed using 2-0 Vicryl suture in interrupted fashion Next a 3 cm incision was made in the left antecubital fossa incision was taken down to subcutaneous tissue using electrocautery the brachial artery was identified vessel loops were passed around it appeared to be small about 3-4 mm we searched for multiple veins the only vein was a antecubital fossa which was a 2 mm vein the vein was transected distally irrigated using saline solution patient was given 5000 units of IV heparin the vein was anastomosed to the artery to the brachial artery in an end-to-side fashion using a 7-0 Prolene continuous suture technique to a 6 mm longitudinal arteriotomy Patient had a Doppler signal over any of the newly constructed fistula however it was faint no evidence of any distal ischemia The wound was irrigated and closed in 2 layers of 3-0 Vicryl suture and for the deep and 3-0 Vicryl suture for running subcuticular skin closure tolerated procedure well ROSALIND PINEDA MD Dec 23, 2016 20:16
[2016-12-23] MEDS: SENNA TAB PO SCH (22:12)
[2016-12-23] MEDS: ATORVASTATIN 80 MG TAB PO SCH (22:12)
[2016-12-24] MEDS: DEXTROSE 5%-0.45% NACL 1,000 ML IV SCH (02:50)
[2016-12-24 03:29] VITALS: BP 132/58; RESP 18
[2016-12-24] MEDS: PANTOPRAZOLE (EC) 40 MG TAB PO SCH (06:47)
[2016-12-24] MEDS: oxyCODONE (CR) 10 MG TAB [oxyCONTIN] PO SCH ×3 (06:47→20:56)
[2016-12-24 07:02] LABS: ABNORMAL IP MESSAGE 1; BASOPHILS % 0.4 % (0.0-2.0); EOSINOPHILS % 0.1 % (0.0-7.0); HEMOGLOBIN 7.9 g/dl (12.0-16.0); LYMPHOCYTES # 1.3 10^3/ul (0.8-2.9); MEAN CORPUSCULAR HEMOGLOBIN 28.8 pg (29.0-33.0); MEAN CORPUSCULAR HGB CONC 28.2 g/dl (32.0-37.0); MEAN CORPUSCULAR VOLUME 102.2 fl (82.0-101.0); MEAN PLATELET VOLUME 8.2 fl (7.4-10.4); MONOCYTE # 0.3 10^3/ul (0.3-0.9); MONOCYTES % 2.9 % (0.0-11.0); NEUTROPHILS % 82.8 % (39.0-77.0); PLATELET COUNT 399 10^3/UL (140-415); RED BLOOD COUNT 2.74 10^6/ul (4.20-5.40); RED CELL DISTRIBUTION WIDTH 15.5 % (11.5-14.5); WHITE BLOOD COUNT 10.1 10^3/ul (4.8-10.8)
[2016-12-24 07:04] LABS: POSITIVE DIFF @See below
[2016-12-24] MEDS: Insulin ASPART slide scale (Novolog) SC SCH ×4 (07:05→21:00)
[2016-12-24 07:16] LABS: INR 1.16; PROTIME 14.9 Sec (12.2-14.2); PT RATIO 1.2
[2016-12-24 07:18] LABS: IRON 66 ug/dl (35-150)
[2016-12-24 07:24] LABS: ALBUMIN/GLOBULIN RATIO 0.73; BILIRUBIN,INDIRECT 0.1 mg/dl (0-1.1); BILIRUBIN,TOTAL 0.1 mg/dl (0.2-1.3); CALCIUM 8.7 mg/dl (8.4-10.2); CREATININE 2.88 mg/dl (0.44-1.00); MAGNESIUM 2.3 mg/dl (1.7-2.5); PHOSPHORUS 3.2 mg/dl (2.5-4.9); TOTAL PROTEIN 7.1 g/dl (6.1-8.1)
[2016-12-24 07:28] LABS: TOTAL IRON BINDING CAPACITY 156 ug/dl (241-421)
[2016-12-24 07:30] VITALS: BP 145/66; RESP 20
[2016-12-24] MEDS: HYDROmorphONE 1 MG/ML SYG IV PRN ×4 (08:26→21:55)
[2016-12-24] MEDS: SEVELAMER 800 MG TAB PO SCH ×3 (08:36→18:26)
[2016-12-24] MEDS: DOCUSATE SODIUM 100 MG CAP PO SCH ×2 (08:40→20:55)
[2016-12-24] MEDS: CHOLECALCIFEROL 400 UNITS TAB PO SCH (09:00)
[2016-12-24] MEDS: AMLODIPINE 5 MG TAB PO SCH ×2 (09:00→20:56)
[2016-12-24] MEDS: BISACODYL 10 MG SUPP PR SCH (09:00)
[2016-12-24] MEDS: SERTRALINE 100 MG TAB PO SCH (09:00)
--- NOTE | 2016-12-24 09:42 | PN ---
Date/Time of Note Date/Time of Note DATE: 12/24/16 TIME: 09:41 Assessment/Plan VTE Prophylaxis VTE Prophylaxis Intervention: other Lines/Catheters IV C[facility]ter Type (from [facility] HD Urinary Cath still in place: No Assessment/Plan Chief Complaint/Hosp Course 1. End-stage renal disease. The patient is scheduled for hemodialysis in am 2. Access: Patient is s/p PermCath placement AV fistula creation on 12/23 3. Anemia. The etiology is likely from chronic disease. The patient is on Epogen. Please note, there is a component of iron deficiency. The patient is status post IV Ferrlecit. Will continue to monitor closely. 4. Mineral bone disorder. Monitor calcium and phosphorus levels. 5. Hypertension. Continue current blood pressure regimen. 6. Osteomyelitis, status post laminectomy. The patient completed antibiotic course. 7. Urinary tract infection. Continue current antibiotic regimen. 8. Myoclonic jerks. Etiology may be secondary Neurontin. Dose was adjusted. Continue to monitor. 9. T7 incomplete paraplegia. Continue physical therapy. 10. History of deep vein thrombosis. The patient's Coumadin. Will hold due to surgery plan in the next one to two days. 11. Paroxysmal atrial fibrillation. Currently sinus rhythm. Continue current medical management. Follow up with Cardiology. 12. Diabetes. Continue Accu-Cheks and insulin sliding scale. 13. Encephalopathy, improving. 14. History of cerebrovascular accident. 15. Chronic obstructive pulmonary disease. Continue current treatment plan. 16. Gastrointestinal and deep venous thrombosis prophylaxis. Continue PPI and sequential leg squeezers. medicine/nephrology follow up SUBJECTIVE DATA: The patient is stable. No events overnight. The patient is scheduled for hemodialysis in am complaining of sciatic pain OBJECTIVE DATA: HEENT: Head is normocephalic. NECK: Supple. HEART: Regular rate. LUNGS: Diminished breath sounds at the base. ABDOMEN: Soft, nontender to palpation. No rebound or guarding. EXTREMITIES: Negative for clubbing, cyanosis, no edema. DERMATOLOGIC: No rashes. MUSCULOSKELETAL: No joint effusion. NEUROLOGIC: No change in exam. MEDICATIONS: Reviewed. Problems: Exam/Review of Systems Vital Signs Vitals Vital Signs Date Time Temp Pulse Resp B/P Pulse Ox O2 Delivery O2 Flow Rate FiO2 12/24/16 07:30 98.8 66 20 145/66 93 12/24/16 01:35 21 12/23/16 21:50 Nasal Cannula 2.0 Intake and Output 12/23/16 12/23/16 12/24/16 15:00 23:00 07:00 Intake Total 400 ml 275 ml 300 ml Output Total 2500 ml 20 ml Balance -2100 ml 255 ml 300 ml Results Result Diagram: 12/24/16 0556 12/24/16 0556 Results 24 hrs Laboratory Tests Test 12/23/16 12:20 12/23/16 16:23 12/23/16 20:32 12/23/16 21:25 Bedside Glucose 122 105 106 Potassium Level 3.8 Test 12/24/16 05:56 12/24/16 08:33 White Blood Count 10.1 Red Blood Count 2.74 L Hemoglobin 7.9 L Hematocrit 28.0 L Mean Corpuscular Volume 102.2 H Mean Corpuscular Hemoglobin 28.8 L Mean Corpuscular Hemoglobin Concent 28.2 L Red Cell Distribution Width 15.5 H Platelet Count 399 Mean Platelet Volume 8.2 Neutrophils % 82.8 H Lymphocytes % 13.0 L Monocytes % 2.9 Eosinophils % 0.1 Basophils % 0.4 Nucleated Red Blood Cells % 0.0 Neutrophils # (Manual) 8.4 H Lymphocytes # 1.3 Monocytes # 0.3 Eosinophils # 0.0 Basophils # 0.0 Nucleated Red Blood Cells # 0.0 Prothrombin Time 14.9 H Prothrombin Time Ratio 1.2 INR International Normalized Ratio 1.16 Sodium Level 138 Potassium Level 5.0 Chloride Level 96 L Carbon Dioxide Level 30 Anion Gap 17 H Blood Urea Nitrogen 36 H Creatinine 2.88 H Glucose Level 203 # Calcium Level 8.7 Phosphorus Level 3.2 Magnesium Level 2.3 Iron Level 66 Total Iron Binding Capacity 156 L Percent Iron Saturation 42 Total Bilirubin 0.1 L Direct Bilirubin 0.00 Indirect Bilirubin 0.1 Aspartate Amino Transf (AST/SGOT) 28 Alanine Aminotransferase (ALT/SGPT) 26 Alkaline Phosphatase 286 H Total Protein 7.1 Albumin 3.0 L Globulin 4.10 H Albumin/Globulin Ratio 0.73 Bedside Glucose 193 Medications Medications Current Medications Sertraline HCl (Zoloft) 100 mg DAILY PO Last administered on 12/22/16 09:09; Admin Dose 100 MG; Start 12/07/16 at 09:00 Amlodipine Besylate (Norvasc) 5 mg BID PO Last administered on 12/23/16 22:12 ; Admin Dose 5 MG; Start 12/06/16 at 21:00 Losartan Potassium (Cozaar) 50 mg BID PO Last administered on 12/23/16 22:13; Admin Dose 50 MG; Start 12/06/16 at 21:00 Atorvastatin Calcium (Lipitor) 80 mg DAILY@21 PO Last administered on 22:12; Admin Dose 80 MG; Start 12/06/16 at 21:00 Polyethylene Glycol (Miralax) 17 gm DAILY PO Last administered on 12/22/16 09: 41; Admin Dose 17 GM; Start 12/07/16 at 09:00 Docusate Sodium (Colace) 100 mg BID PO Last administered on 12/23/16 22:13; Admin Dose 100 MG; Start 12/06/16 at 21:00 Metoprolol Tartrate (Lopressor) 100 mg BID PO Last administered on 12/23/16 21 :00; Admin Dose 100 MG; Start 12/06/16 at 21:00 Vitamin B Complex/ Vitamin C (Berocca) 1 cap BID PO Last administered on 22:10; Admin Dose 1 CAP; Start 12/06/16 at 21:00 Cholecalciferol (Vitamin D) 400 units DAILY PO Last administered on 12/22/16 09:07; Admin Dose 400 UNITS; Start 12/07/16 at 09:00 Pantoprazole (Protonix Tab) 40 mg DAILY@06 PO Last administered on 12/24/16 06 :47; Admin Dose 40 MG; Start 12/07/16 at 06:00 Hydralazine HCl (Apresoline) 50 mg TID PO Last administered on 12/23/16 22:13 ; Admin Dose 50 MG; Start 12/06/16 at 21:00 Methocarbamol (Robaxin) 500 mg TID PRN PO MUSCLE SPASMS Last administered on 08:51; Admin Dose 500 MG; Start 12/06/16 at 17:00 Diphenhydramine HCl (Benadryl) 25 mg Q6H PRN PO ITCHING Last administered on 10:33; Admin Dose 25 MG; Start 12/06/16 at 15:30 Miscellaneous Information 1 ea NOTE XX ; Start 12/06/16 at 16:00 Glucose (Glutose) 15 gm Q15M PRN PO DECREASED GLUCOSE; Start 12/06/16 at 16:00 Glucose (Glutose) 22.5 gm Q15M PRN PO DECREASED GLUCOSE; Start 12/06/16 at 16: 00 Dextrose (D50w Syringe) 25 ml Q15M PRN IV DECREASED GLUCOSE; Start 12/06/16 at 16:00 Dextrose (D50w Syringe) 50 ml Q15M PRN IV DECREASED GLUCOSE; Start 12/06/16 at 16:00 Glucagon (Glucagen) 1 mg Q15M PRN IM DECREASED GLUCOSE; Start 12/06/16 at 16:00 Glucose (Glutose) 15 gm Q15M PRN BUCCAL DECREASED GLUCOSE; Start 12/06/16 at 16 :00 Acetaminophen (Tylenol Tab) 650 mg Q4H PRN PO PAIN; Start 12/06/16 at 17:00 Magnesium Hydroxide (Milk Of Mag) 30 ml BID PRN PO CONSTIPATION; Start at 17:00 Lactulose (Enulose) 20 gm DAILY PRN PO CONSTIPATION; Start 12/06/16 at 17:00 Oxycodone HCl (Oxycontin) 10 mg Q8 PO Last administered on 12/24/16 06:47; Admin Dose 10 MG; Start 12/07/16 at 11:30 Bisacodyl (Dulcolax Supp) 10 mg DAILY [place] ; Start 12/08/16 at 09:00 Hydromorphone HCl (Dilaudid) 0.5 mg Q3H PRN IV PAIN Last administered on 12/24/16 08:26; Admin Dose 0.5 MG; Start 12/13/16 at 11:10 Senna (Senokot) 2 tab HS PO Last administered on 12/23/16 22:12; Admin Dose 2 TAB; Start 12/13/16 at 21:00 Warfarin Sodium (Coumadin) 5 mg DAILY@17 PO Last administered on 12/17/16 19: 08; Admin Dose 5 MG; Start 12/15/16 at 17:00; Status Future Hold Gabapentin 300 mg 300 mg DAILY PO Last administered on 12/22/16 09:08; Admin Dose 300 MG; Start 12/20/16 at 09:00 Dextrose/Sodium Chloride (D5-1/2ns) 1,000 ml @ 75 mls/hr [id number] IV Last administered on 12/23/16t 16:36; Admin Dose 75 MLS/HR; Start 12/23/16 at 13:30 CHANDA ROJAS DO Dec 24, 2016 09:41
--- NOTE | 2016-12-24 09:54 | PN ---
DATE: 12/23/2016 PSYCHOLOGY - INDIVIDUAL SESSION - [id number]: This is a follow up on a patient who was seen last week. Originally, last week it did appear that she was going to be going to a jail. She did not do that and has started to improve. The patient sees that her improvement is helping her mood. The patient's was present during this session with the patient's permission. The patient does say that she is more hopeful, but still very frustrated about all her medical problems. I worked with her to try to help continue to encourage her to work on her physical and emotional problems. Dictated By: Marbin Cronin, PHD /saul/yamini /Document#: [id number] STORMY
--- NOTE | 2016-12-24 10:02 | RADRPT ---
PROCEDURE: Fluoroscopy. CLINICAL INDICATION: Intraoperative fluoroscopic guidance. Right dialysis catheter placement. TECHNIQUE: Fluoroscopic guidance provided for intraoperative procedure. COMPARISON: Chest x-ray 06/24/2016 FINDINGS: 3.3 seconds fluoroscopy time was used. 2intraoperative spot radiographs obtained. Right dialysis ca theter placement. IMPRESSION: Fluoroscopic guidance provided for intraoperative procedure. RPTAT:AAJJ Skyler Wilson Physician Date Time Electronically viewed and signed by Skyler Wilson Physician on 12/24/2016 00:33 CHRIS/
--- NOTE | 2016-12-24 10:42 | CONS ---
Date/Time of Note Date/Time of Note DATE: 12/24/16 TIME: 10:41 Consult Date/Type/Reason Admit Date/Time Dec 06, 2016 at 10:56 Initial Consult Date 12/10/16 Type of Consultation: CARDIOLOGY Subjective CARDIOLOGY FOLLOW UP d/w staff. pt STILL with c/o left hip pain now this am. but stable no chest pain or pressure. no palpitations or bleeding no bleeding. OBJECTIVE: General: no acute distress. Obese female. HEENT: NC/AT. pupils are equal. round. NECK: NO JVD. no stridor. CV: RRR. systolic murmur; no gallop or rubs. chest: s/p R HD access in place. PULM: no wheezing or rhonchi. GI: SOFT, NT, ND, no rebound or guarding. Obese Extremity: + B/L LE edema. no clubbing. neuro: drowsy but responds appropriately Psych: calm and pleasant rectal: deferred Objective Vital Signs Date Time Temp Pulse Resp B/P Pulse Ox O2 Delivery O2 Flow Rate FiO2 12/24/16 07:30 98.8 66 20 145/66 93 12/24/16 01:35 21 12/23/16 21:50 Nasal Cannula 2.0 Intake and Output 12/23/16 12/23/16 12/24/16 15:00 23:00 07:00 Intake Total 400 ml 275 ml 300 ml Output Total 2500 ml 20 ml Balance -2100 ml 255 ml 300 ml Results/Medications Result Diagram: 12/24/16 0556 12/24/16 0556 Results 24 hrs Laboratory Tests Test 12/23/16 12:20 12/23/16 16:23 12/23/16 20:32 12/23/16 21:25 Bedside Glucose 122 105 106 Potassium Level 3.8 Test 12/24/16 05:56 12/24/16 08:33 White Blood Count 10.1 Red Blood Count 2.74 L Hemoglobin 7.9 L Hematocrit 28.0 L Mean Corpuscular Volume 102.2 H Mean Corpuscular Hemoglobin 28.8 L Mean Corpuscular Hemoglobin Concent 28.2 L Red Cell Distribution Width 15.5 H Platelet Count 399 Mean Platelet Volume 8.2 Neutrophils % 82.8 H Lymphocytes % 13.0 L Monocytes % 2.9 Eosinophils % 0.1 Basophils % 0.4 Nucleated Red Blood Cells % 0.0 Neutrophils # (Manual) 8.4 H Lymphocytes # 1.3 Monocytes # 0.3 Eosinophils # 0.0 Basophils # 0.0 Nucleated Red Blood Cells # 0.0 Prothrombin Time 14.9 H Prothrombin Time Ratio 1.2 INR International Normalized Ratio 1.16 Sodium Level 138 Potassium Level 5.0 Chloride Level 96 L Carbon Dioxide Level 30 Anion Gap 17 H Blood Urea Nitrogen 36 H Creatinine 2.88 H Glucose Level 203 # Calcium Level 8.7 Phosphorus Level 3.2 Magnesium Level 2.3 Iron Level 66 Total Iron Binding Capacity 156 L Percent Iron Saturation 42 Total Bilirubin 0.1 L Direct Bilirubin 0.00 Indirect Bilirubin 0.1 Aspartate Amino Transf (AST/SGOT) 28 Alanine Aminotransferase (ALT/SGPT) 26 Alkaline Phosphatase 286 H Total Protein 7.1 Albumin 3.0 L Globulin 4.10 H Albumin/Globulin Ratio 0.73 Bedside Glucose 193 Medications Current Medications Sertraline HCl (Zoloft) 100 mg DAILY PO Last administered on 12/22/16 09:09; Admin Dose 100 MG; Start 12/07/16 at 09:00 Amlodipine Besylate (Norvasc) 5 mg BID PO Last administered on 12/23/16 22:12 ; Admin Dose 5 MG; Start 12/06/16 at 21:00 Losartan Potassium (Cozaar) 50 mg BID PO Last administered on 12/23/16 22:13; Admin Dose 50 MG; Start 12/06/16 at 21:00 Atorvastatin Calcium (Lipitor) 80 mg DAILY@21 PO Last administered on 22:12; Admin Dose 80 MG; Start 12/06/16 at 21:00 Polyethylene Glycol (Miralax) 17 gm DAILY PO Last administered on 12/22/16 09: 41; Admin Dose 17 GM; Start 12/07/16 at 09:00 Docusate Sodium (Colace) 100 mg BID PO Last administered on 12/23/16 22:13; Admin Dose 100 MG; Start 12/06/16 at 21:00 Metoprolol Tartrate (Lopressor) 100 mg BID PO Last administered on 12/23/16 21 :00; Admin Dose 100 MG; Start 12/06/16 at 21:00 Vitamin B Complex/ Vitamin C (Berocca) 1 cap BID PO Last administered on 22:10; Admin Dose 1 CAP; Start 12/06/16 at 21:00 Cholecalciferol (Vitamin D) 400 units DAILY PO Last administered on 12/22/16 09:07; Admin Dose 400 UNITS; Start 12/07/16 at 09:00 Pantoprazole (Protonix Tab) 40 mg DAILY@06 PO Last administered on 12/24/16 06 :47; Admin Dose 40 MG; Start 12/07/16 at 06:00 Hydralazine HCl (Apresoline) 50 mg TID PO Last administered on 12/23/16 22:13 ; Admin Dose 50 MG; Start 12/06/16 at 21:00 Methocarbamol (Robaxin) 500 mg TID PRN PO MUSCLE SPASMS Last administered on 08:51; Admin Dose 500 MG; Start 12/06/16 at 17:00 Diphenhydramine HCl (Benadryl) 25 mg Q6H PRN PO ITCHING Last administered on 10:33; Admin Dose 25 MG; Start 12/06/16 at 15:30 Miscellaneous Information 1 ea NOTE XX ; Start 12/06/16 at 16:00 Glucose (Glutose) 15 gm Q15M PRN PO DECREASED GLUCOSE; Start 12/06/16 at 16:00 Glucose (Glutose) 22.5 gm Q15M PRN PO DECREASED GLUCOSE; Start 12/06/16 at 16: 00 Dextrose (D50w Syringe) 25 ml Q15M PRN IV DECREASED GLUCOSE; Start 12/06/16 at 16:00 Dextrose (D50w Syringe) 50 ml Q15M PRN IV DECREASED GLUCOSE; Start 12/06/16 at 16:00 Glucagon (Glucagen) 1 mg Q15M PRN IM DECREASED GLUCOSE; Start 12/06/16 at 16:00 Glucose (Glutose) 15 gm Q15M PRN BUCCAL DECREASED GLUCOSE; Start 12/06/16 at 16 :00 Acetaminophen (Tylenol Tab) 650 mg Q4H PRN PO PAIN; Start 12/06/16 at 17:00 Magnesium Hydroxide (Milk Of Mag) 30 ml BID PRN PO CONSTIPATION; Start at 17:00 Lactulose (Enulose) 20 gm DAILY PRN PO CONSTIPATION; Start 12/06/16 at 17:00 Oxycodone HCl (Oxycontin) 10 mg Q8 PO Last administered on 12/24/16 06:47; Admin Dose 10 MG; Start 12/07/16 at 11:30 Bisacodyl (Dulcolax Supp) 10 mg DAILY [place] ; Start 12/08/16 at 09:00 Hydromorphone HCl (Dilaudid) 0.5 mg Q3H PRN IV PAIN Last administered on 12/24/16 08:26; Admin Dose 0.5 MG; Start 12/13/16 at 11:10 Senna (Senokot) 2 tab HS PO Last administered on 12/23/16 22:12; Admin Dose 2 TAB; Start 12/13/16 at 21:00 Warfarin Sodium (Coumadin) 5 mg DAILY@17 PO Last administered on 12/17/16 19: 08; Admin Dose 5 MG; Start 12/15/16 at 17:00; Status Future Hold Gabapentin 300 mg 300 mg DAILY PO Last administered on 12/22/16 09:08; Admin Dose 300 MG; Start 12/20/16 at 09:00 Dextrose/Sodium Chloride (D5-1/2ns) 1,000 ml @ 75 mls/hr [id number] IV Last administered on 12/23/16 16:36; Admin Dose 75 MLS/HR; Start 12/23/16 at 13:30 Assessment/Plan Chief Complaint/Hosp Course 1. History of P-atrial fibrillation. Currently in NSR 2. History of CVA 3. Hypertension. 4. Renal failure, on dialysis. 5. History of dyslipidemia. 6. History of multiple infections. 7. Discitis. 8. Severe anemia. 9. History of deep vein thrombosis. 10. hyper K: to be corrected by HD. resume coumadin now ECHO shows normal EF AND LA size. cont betablocker. HD as per renal Cont PT as tolerated. pain management as per IM daily PT INR THANK YOU Problems: TAMERA BAILEY MD Dec 24, 2016 10:42
[2016-12-24] MEDS: ALBUTEROL/IPRATROPIUM (NEB) 3 ML AMP HHN SCH ×3 (11:07→20:03)
[2016-12-24] MEDS: VITAMIN B COMPLEX/VIT C CAP PO SCH ×2 (11:14→20:54)
[2016-12-24] MEDS: LOSARTAN 50 MG TAB PO SCH ×2 (11:15→20:55)
[2016-12-24] MEDS: POLYETHYLENE GLYCOL 17 GM PACKET PO SCH (11:16)
[2016-12-24] MEDS: METOPROLOL 100 MG TAB PO SCH ×2 (11:17→20:55)
[2016-12-24] MEDS: GABAPENTIN 300 MG CAP PO SCH (11:18)
--- NOTE | 2016-12-24 11:37 | PN ---
Date/Time of Note Date/Time of Note DATE: 12/24/16 TIME: 11:35 Assessment/Plan Lines/Catheters IV Catheter Type (from Nrsg): HD Lara in Place (from Nrsg): No Assessment/Plan Chief Complaint/Hosp Course Chronic kidney disease IStatus post permacath placement status post left upper extremity AV fistula We will use the permacath Patient with very small veins We will monitor the fistula If it does not mature may need a upper extremity graft placement Discussed with the patient We will hold off on Coumadin Problems: Subjective 24 Hr Interval Summary Constitutional: improved Pain Control: mild Exam/Review of Systems Vital Signs Vitals Vital Signs Date Time Temp Pulse Resp B/P Pulse Ox O2 Delivery O2 Flow Rate FiO2 12/24/16 07:30 98.8 66 20 145/66 93 12/24/16 01:35 21 12/23/16 21:50 Nasal Cannula 2.0 Intake and Output 12/23/16 12/23/16 12/24/16 15:00 23:00 07:00 Intake Total 400 ml 275 ml 300 ml Output Total 2500 ml 20 ml Balance -2100 ml 255 ml 300 ml Exam ENMT: mucosa pink and moist, nl external ears & nose, nl lips & teeth, nl nasal mucosa & septum Neck: non-tender, supple Respiratory: clear to auscultation, normal air movement, No congested cough, No crackles/rales, No diminished breath sounds, No intercostal retraction, No labored breathing, No other, No respirations, No tactile fremitus, No wheezing Gastrointestinal: nl liver, spleen, non-tender, soft Results Result Diagram: 12/24/16 0556 12/24/16 0556 ROSALIND PINEDA MD Dec 24, 2016 11:36
[2016-12-24] MEDS ORDERED: WARFARIN 7.5 MG TAB PO SCH (12:00)
--- NOTE | 2016-12-24 13:13 | CONS ---
Date/Time of Note Date/Time of Note DATE: 12/24/16 TIME: 13:11 Consult Date/Type/Reason Admit Date/Time Dec 06, 2016 at 10:56 Type of Consultation: CARDIOLOGY Subjective feeling better Objective pulm-cta abd-soft mod assist amb Vital Signs Date Time Temp Pulse Resp B/P Pulse Ox O2 Delivery O2 Flow Rate FiO2 12/24/16 07:30 98.8 66 20 145/66 93 12/24/16 01:35 21 12/23/16 21:50 Nasal Cannula 2.0 Intake and Output 12/23/16 12/23/16 12/24/16 15:00 23:00 07:00 Intake Total 400 ml 275 ml 300 ml Output Total 2500 ml 20 ml Balance -2100 ml 255 ml 300 ml Results/Medications Result Diagram: 12/24/16 0556 12/24/16 0556 Results 24 hrs Laboratory Tests Test 12/23/16 16:23 12/23/16 20:32 12/23/16 21:25 12/24/16 05:56 Potassium Level 3.8 5.0 Bedside Glucose 105 106 White Blood Count 10.1 Red Blood Count 2.74 L Hemoglobin 7.9 L Hematocrit 28.0 L Mean Corpuscular Volume 102.2 H Mean Corpuscular Hemoglobin 28.8 L Mean Corpuscular Hemoglobin Concent 28.2 L Red Cell Distribution Width 15.5 H Platelet Count 399 Mean Platelet Volume 8.2 Neutrophils % 82.8 H Lymphocytes % 13.0 L Monocytes % 2.9 Eosinophils % 0.1 Basophils % 0.4 Nucleated Red Blood Cells % 0.0 Neutrophils # (Manual) 8.4 H Lymphocytes # 1.3 Monocytes # 0.3 Eosinophils # 0.0 Basophils # 0.0 Nucleated Red Blood Cells # 0.0 Prothrombin Time 14.9 H Prothrombin Time Ratio 1.2 INR International Normalized Ratio 1.16 Sodium Level 138 Chloride Level 96 L Carbon Dioxide Level 30 Anion Gap 17 H Blood Urea Nitrogen 36 H Creatinine 2.88 H Glucose Level 203 # Calcium Level 8.7 Phosphorus Level 3.2 Magnesium Level 2.3 Iron Level 66 Total Iron Binding Capacity 156 L Percent Iron Saturation 42 Total Bilirubin 0.1 L Direct Bilirubin 0.00 Indirect Bilirubin 0.1 Aspartate Amino Transf (AST/SGOT) 28 Alanine Aminotransferase (ALT/SGPT) 26 Alkaline Phosphatase 286 H Total Protein 7.1 Albumin 3.0 L Globulin 4.10 H Albumin/Globulin Ratio 0.73 Test 12/24/16 08:33 12/24/16 13:08 Bedside Glucose 193 149 Medications Current Medications Sertraline HCl (Zoloft) 100 mg DAILY PO Last administered on 12/22/16 09:09; Admin Dose 100 MG; Start 12/07/16 at 09:00 Amlodipine Besylate (Norvasc) 5 mg BID PO Last administered on 12/23/16 22:12 ; Admin Dose 5 MG; Start 12/06/16 at 21:00 Losartan Potassium (Cozaar) 50 mg BID PO Last administered on 12/24/16 11:15; Admin Dose 50 MG; Start 12/06/16 at 21:00 Atorvastatin Calcium (Lipitor) 80 mg DAILY@21 PO Last administered on 22:12; Admin Dose 80 MG; Start 12/06/16 at 21:00 Polyethylene Glycol (Miralax) 17 gm DAILY PO Last administered on 12/24/16 11: 16; Admin Dose 17 GM; Start 12/07/16 at 09:00 Docusate Sodium (Colace) 100 mg BID PO Last administered on 12/23/16 22:13; Admin Dose 100 MG; Start 12/06/16 at 21:00 Metoprolol Tartrate (Lopressor) 100 mg BID PO Last administered on 12/24/16 11 :17; Admin Dose 100 MG; Start 12/06/16 at 21:00 Vitamin B Complex/ Vitamin C (Berocca) 1 cap BID PO Last administered on 11:14; Admin Dose 1 CAP; Start 12/06/16 at 21:00 Cholecalciferol (Vitamin D) 400 units DAILY PO Last administered on 12/22/16 09:07; Admin Dose 400 UNITS; Start 12/07/16 at 09:00 Pantoprazole (Protonix Tab) 40 mg DAILY@06 PO Last administered on 12/24/16 06 :47; Admin Dose 40 MG; Start 12/07/16 at 06:00 Hydralazine HCl (Apresoline) 50 mg TID PO Last administered on 12/24/16 11:15 ; Admin Dose 50 MG; Start 12/06/16 at 21:00 Methocarbamol (Robaxin) 500 mg TID PRN PO MUSCLE SPASMS Last administered on 08:51; Admin Dose 500 MG; Start 12/06/16 at 17:00 Diphenhydramine HCl (Benadryl) 25 mg Q6H PRN PO ITCHING Last administered on 10:33; Admin Dose 25 MG; Start 12/06/16 at 15:30 Miscellaneous Information 1 ea NOTE XX ; Start 12/06/16 at 16:00 Glucose (Glutose) 15 gm Q15M PRN PO DECREASED GLUCOSE; Start 12/06/16 at 16:00 Glucose (Glutose) 22.5 gm Q15M PRN PO DECREASED GLUCOSE; Start 12/06/16 at 16: 00 Dextrose (D50w Syringe) 25 ml Q15M PRN IV DECREASED GLUCOSE; Start 12/06/16 at 16:00 Dextrose (D50w Syringe) 50 ml Q15M PRN IV DECREASED GLUCOSE; Start 12/06/16 at 16:00 Glucagon (Glucagen) 1 mg Q15M PRN IM DECREASED GLUCOSE; Start 12/06/16 at 16:00 Glucose (Glutose) 15 gm Q15M PRN BUCCAL DECREASED GLUCOSE; Start 12/06/16 at 16 :00 Acetaminophen (Tylenol Tab) 650 mg Q4H PRN PO PAIN; Start 12/06/16 at 17:00 Magnesium Hydroxide (Milk Of Mag) 30 ml BID PRN PO CONSTIPATION; Start at 17:00 Lactulose (Enulose) 20 gm DAILY PRN PO CONSTIPATION; Start 12/06/16 at 17:00 Oxycodone HCl (Oxycontin) 10 mg Q8 PO Last administered on 12/24/16 06:47; Admin Dose 10 MG; Start 12/07/16 at 11:30 Bisacodyl (Dulcolax Supp) 10 mg DAILY IN ; Start 12/08/16 at 09:00 Hydromorphone HCl (Dilaudid) 0.5 mg Q3H PRN IV PAIN Last administered on 12/24/16 08:26; Admin Dose 0.5 MG; Start 12/13/16 at 11:10 Senna (Senokot) 2 tab HS PO Last administered on 12/23/16 22:12; Admin Dose 2 TAB; Start 12/13/16 at 21:00 Gabapentin 300 mg 300 mg DAILY PO Last administered on 12/24/16 11:18; Admin Dose 300 MG; Start 12/20/16 at 09:00 Dextrose/Sodium Chloride (D5-1/2ns) 1,000 ml @ 75 mls/hr [id number] IV Last administered on 12/23/16 16:36; Admin Dose 75 MLS/HR; Start 12/23/16 at 13:30 Warfarin Sodium (Coumadin) 5 mg DAILY@17 PO ; Start 12/25/16 at 17:00 Assessment/Plan Additional Assessment/Plan Rehabilitation-T7 incomplete paraplegia due to epidural abscess/osteomyelitis- status post Thoracic lami drainage of abscess Overall improving with current plan. SW working on dispo Pulmonary -post operative respiratory failure requiring intubation, with eventual extubation, currently stable Toxic metabolic encephalopathy-continue treatment plan, cognition improving Diabetes Mellitus type 2 ESRD on HD Afib Coronary Artery Disease history of DVT Hypertension Hypercholesterolemia COPD history of CVA anxiety depression ALINE CORREIA MD Dec 24, 2016 13:13
[2016-12-24 14:00] VITALS: BP 141/64; RESP 20
[2016-12-24 19:22] VITALS: BP 130/59; RESP 18
[2016-12-24] MEDS: SENNA TAB PO SCH (20:55)
[2016-12-24] MEDS: ATORVASTATIN 80 MG TAB PO SCH (20:55)
[2016-12-25 01:55] VITALS: BP 123/58; RESP 18
[2016-12-25] MEDS: HYDROmorphONE 1 MG/ML SYG IV PRN ×4 (03:01→11:17)
[2016-12-25] MEDS: oxyCODONE (CR) 10 MG TAB [oxyCONTIN] PO SCH ×2 (06:17→14:00)
[2016-12-25] MEDS: PANTOPRAZOLE (EC) 40 MG TAB PO SCH (06:17)
[2016-12-25 06:25] LABS: BASOPHIL # 0.1 10^3/ul (0.0-0.1); BASOPHILS % 0.6 % (0.0-2.0); EOSINOPHILS # 0.5 10^3/ul (0.0-0.5); EOSINOPHILS % 5.6 % (0.0-7.0); HEMATOCRIT 26.1 % (37.0-47.0); HEMOGLOBIN 7.6 g/dl (12.0-16.0); LYMPHOCYTES # 2.4 10^3/ul (0.8-2.9); LYMPHOCYTES % 26.8 % (15.0-51.0); MEAN CORPUSCULAR HEMOGLOBIN 29.6 pg (29.0-33.0); MEAN CORPUSCULAR HGB CONC 29.1 g/dl (32.0-37.0); MEAN CORPUSCULAR VOLUME 101.6 fl (82.0-101.0); MONOCYTE # 0.7 10^3/ul (0.3-0.9); MONOCYTES % 7.8 % (0.0-11.0); NEUTROPHILS % 58.5 % (39.0-77.0); PLATELET COUNT 380 10^3/UL (140-415); RED BLOOD COUNT 2.57 10^6/ul (4.20-5.40); RED CELL DISTRIBUTION WIDTH 15.8 % (11.5-14.5)
[2016-12-25 06:36] LABS: INR 1.12; PROTIME 14.4 Sec (12.2-14.2); PT RATIO 1.1
[2016-12-25 06:51] LABS: ALBUMIN 2.9 g/dl (3.3-4.9); ALBUMIN/GLOBULIN RATIO 0.76; CALCIUM 8.6 mg/dl (8.4-10.2); CREATININE 3.34 mg/dl (0.44-1.00); POTASSIUM 5.2 mmol/L (3.5-5.1); TOTAL PROTEIN 6.7 g/dl (6.1-8.1)
[2016-12-25] MEDS: Insulin ASPART slide scale (Novolog) SC SCH ×2 (07:05→11:30)
[2016-12-25 07:30] VITALS: BP 138/65; RESP 20
[2016-12-25] MEDS: SEVELAMER 800 MG TAB PO SCH ×2 (08:26→12:00)
[2016-12-25] MEDS: ALBUTEROL/IPRATROPIUM (NEB) 3 ML AMP HHN SCH ×2 (08:29→14:00)
[2016-12-25] MEDS: LOSARTAN 50 MG TAB PO SCH (09:00)
[2016-12-25] MEDS: SERTRALINE 100 MG TAB PO SCH (09:00)
[2016-12-25] MEDS: METOPROLOL 100 MG TAB PO SCH (09:00)
[2016-12-25] MEDS: BISACODYL 10 MG SUPP PR SCH (09:00)
[2016-12-25] MEDS: CHOLECALCIFEROL 400 UNITS TAB PO SCH (09:00)
--- NOTE | 2016-12-25 09:55 | CONS ---
Date/Time of Note Date/Time of Note DATE: 12/25/16 TIME: 09:54 Consult Date/Type/Reason Admit Date/Time Dec 06, 2016 at 10:56 Type of Consultation: CARDIOLOGY Objective pulm-cta min/mod Vital Signs Date Time Temp Pulse Resp B/P Pulse Ox O2 Delivery O2 Flow Rate FiO2 12/25/16 07:30 98.8 70 20 138/65 94 12/25/16 05:32 2.0 12/24/16 20:04 Nasal Cannula 12/24/16 01:35 21 Intake and Output 12/24/16 12/24/16 12/25/16 15:00 23:00 07:00 Intake Total 200 ml 540 ml 200 ml Output Total 1 ml 2 ml Balance 200 ml 539 ml 198 ml Results/Medications Result Diagram: 12/25/16 0605 12/25/16 0605 Results 24 hrs Laboratory Tests Test 12/24/16 13:08 12/24/16 18:05 12/24/16 20:52 12/25/16 06:05 Bedside Glucose 149 170 153 White Blood Count 9.0 Red Blood Count 2.57 L Hemoglobin 7.6 L Hematocrit 26.1 L Mean Corpuscular Volume 101.6 H Mean Corpuscular Hemoglobin 29.6 Mean Corpuscular Hemoglobin Concent 29.1 L Red Cell Distribution Width 15.8 H Platelet Count 380 Mean Platelet Volume 8.0 Neutrophils % 58.5 Lymphocytes % 26.8 Monocytes % 7.8 Eosinophils % 5.6 Basophils % 0.6 Nucleated Red Blood Cells % 0.0 Neutrophils # (Manual) 5 Lymphocytes # 2.4 Monocytes # 0.7 Eosinophils # 0.5 Basophils # 0.1 Nucleated Red Blood Cells # 0.0 Prothrombin Time 14.4 H Prothrombin Time Ratio 1.1 INR International Normalized Ratio 1.12 Sodium Level 140 Potassium Level 5.2 H Chloride Level 100 Carbon Dioxide Level 27 Anion Gap 18 H Blood Urea Nitrogen 51 H Creatinine 3.34 H Glucose Level 102 # Calcium Level 8.6 Total Bilirubin 0.0 L Direct Bilirubin 0.00 Indirect Bilirubin 0.0 Aspartate Amino Transf (AST/SGOT) 28 Alanine Aminotransferase (ALT/SGPT) 23 Alkaline Phosphatase 218 H Total Protein 6.7 Albumin 2.9 L Globulin 3.80 H Albumin/Globulin Ratio 0.76 Test 12/25/16 08:23 Bedside Glucose 98 Medications Current Medications Sertraline HCl (Zoloft) 100 mg DAILY PO Last administered on 12/24/16 09:00; Admin Dose 100 MG; Start 12/07/16 at 09:00 Amlodipine Besylate (Norvasc) 5 mg BID PO Last administered on 12/24/16 20:56 ; Admin Dose 5 MG; Start 12/06/16 at 21:00 Losartan Potassium (Cozaar) 50 mg BID PO Last administered on 12/24/16 20:55; Admin Dose 50 MG; Start 12/06/16 at 21:00 Atorvastatin Calcium (Lipitor) 80 mg DAILY@21 PO Last administered on 20:55; Admin Dose 80 MG; Start 12/06/16 at 21:00 Polyethylene Glycol (Miralax) 17 gm DAILY PO Last administered on 12/24/16 11: 16; Admin Dose 17 GM; Start 12/07/16 at 09:00 Docusate Sodium (Colace) 100 mg BID PO Last administered on 12/24/16 20:55; Admin Dose 100 MG; Start 12/06/16 at 21:00 Metoprolol Tartrate (Lopressor) 100 mg BID PO Last administered on 12/24/16 20 :55; Admin Dose 100 MG; Start 12/06/16 at 21:00 Vitamin B Complex/ Vitamin C (Berocca) 1 cap BID PO Last administered on 20:54; Admin Dose 1 CAP; Start 12/06/16 at 21:00 Cholecalciferol (Vitamin D) 400 units DAILY PO Last administered on 12/22/16 09:07; Admin Dose 400 UNITS; Start 12/07/16 at 09:00 Pantoprazole (Protonix Tab) 40 mg DAILY@06 PO Last administered on 12/25/16 06 :17; Admin Dose 40 MG; Start 12/07/16 at 06:00 Hydralazine HCl (Apresoline) 50 mg TID PO Last administered on 12/24/16 20:56 ; Admin Dose 50 MG; Start 12/06/16 at 21:00 Methocarbamol (Robaxin) 500 mg TID PRN PO MUSCLE SPASMS Last administered on 08:51; Admin Dose 500 MG; Start 12/06/16 at 17:00 Diphenhydramine HCl (Benadryl) 25 mg Q6H PRN PO ITCHING Last administered on 10:33; Admin Dose 25 MG; Start 12/06/16 at 15:30 Miscellaneous Information 1 ea NOTE XX ; Start 12/06/16 at 16:00 Glucose (Glutose) 15 gm Q15M PRN PO DECREASED GLUCOSE; Start 12/06/16 at 16:00 Glucose (Glutose) 22.5 gm Q15M PRN PO DECREASED GLUCOSE; Start 12/06/16 at 16: 00 Dextrose (D50w Syringe) 25 ml Q15M PRN IV DECREASED GLUCOSE; Start 12/06/16 at 16:00 Dextrose (D50w Syringe) 50 ml Q15M PRN IV DECREASED GLUCOSE; Start 12/06/16 at 16:00 Glucagon (Glucagen) 1 mg Q15M PRN IM DECREASED GLUCOSE; Start 12/06/16 at 16:00 Glucose (Glutose) 15 gm Q15M PRN BUCCAL DECREASED GLUCOSE; Start 12/06/16 at 16 :00 Acetaminophen (Tylenol Tab) 650 mg Q4H PRN PO PAIN; Start 12/06/16 at 17:00 Magnesium Hydroxide (Milk Of Mag) 30 ml BID PRN PO CONSTIPATION; Start at 17:00 Lactulose (Enulose) 20 gm DAILY PRN PO CONSTIPATION; Start 12/06/16 at 17:00 Oxycodone HCl (Oxycontin) 10 mg Q8 PO Last administered on 12/25/16 06:17; Admin Dose 10 MG; Start 12/07/16 at 11:30 Bisacodyl (Dulcolax Supp) 10 mg DAILY [place] ; Start 12/08/16 at 09:00 Hydromorphone HCl (Dilaudid) 0.5 mg Q3H PRN IV PAIN Last administered on 12/25/16 08:40; Admin Dose 0.5 MG; Start 12/13/16 at 11:10 Senna (Senokot) 2 tab HS PO Last administered on 12/24/16 20:55; Admin Dose 2 TAB; Start 12/13/16 at 21:00 Gabapentin (Neurontin) 300 mg DAILY PO Last administered on 12/24/16 11:18; Admin Dose 300 MG; Start 8/13/17 at 09:00 Warfarin Sodium (Coumadin) 5 mg DAILY@17 PO ; Start 12/25/16 at 17:00 Assessment/Plan Additional Assessment/Plan Rehabilitation-T7 incomplete paraplegia due to epidural abscess/osteomyelitis- status post Thoracic lami drainage of abscess Continued progress. SW working on dispo Pulmonary -post operative respiratory failure requiring intubation, with eventual extubation, currently stable Toxic metabolic encephalopathy-cognition improving, will decrease speech activities and increase PT/OT Diabetes Mellitus type 2 ESRD on HD Afib Coronary Artery Disease history of DVT Hypertension Hypercholesterolemia COPD history of CVA anxiety depression ALINE CORREIA MD Dec 25, 2016 09:55
[2016-12-25] MEDS: GABAPENTIN 300 MG CAP PO SCH (11:25)
[2016-12-25] MEDS: DOCUSATE SODIUM 100 MG CAP PO SCH (11:26)
[2016-12-25] MEDS: VITAMIN B COMPLEX/VIT C CAP PO SCH (11:26)
[2016-12-25] MEDS: AMLODIPINE 5 MG TAB PO SCH (11:26)
[2016-12-25] MEDS: POLYETHYLENE GLYCOL 17 GM PACKET PO SCH (11:27)
--- NOTE | 2016-12-25 11:50 | PN ---
Date/Time of Note Date/Time of Note DATE: 12/25/16 TIME: 11:49 Assessment/Plan VTE Prophylaxis VTE Prophylaxis Intervention: other Lines/Catheters IV Catheter Type (from Nrs): Permacath Urinary Cath still in place: No Assessment/Plan Chief Complaint/Hosp Course 1. End-stage renal disease. The patient is scheduled for hemodialysis tonight at [facility] [place] 2. Access: Patient is s/p PermCath placement AV fistula creation on 12/23 3. Anemia. The etiology is likely from chronic disease. The patient is on Epogen. Please note, there is a component of iron deficiency. The patient is status post IV Ferrlecit. Will continue to monitor closely. 4. Mineral bone disorder. Monitor calcium and phosphorus levels. 5. Hypertension. Continue current blood pressure regimen. 6. Osteomyelitis, status post laminectomy. The patient completed antibiotic course. 7. Urinary tract infection. Continue current antibiotic regimen. 8. Myoclonic jerks. Etiology may be secondary Neurontin. Dose was adjusted. Continue to monitor. 9. T7 incomplete paraplegia. Continue physical therapy. 10. History of deep vein thrombosis. The patient's Coumadin. Will hold due to surgery plan in the next one to two days. 11. Paroxysmal atrial fibrillation. Currently sinus rhythm. Continue current medical management. Follow up with Cardiology. 12. Diabetes. Continue Accu-Cheks and insulin sliding scale. 13. Encephalopathy, improving. 14. History of cerebrovascular accident. 15. Chronic obstructive pulmonary disease. Continue current treatment plan. 16. Gastrointestinal and deep venous thrombosis prophylaxis. Continue PPI and sequential leg squeezers. medicine/nephrology follow up SUBJECTIVE DATA: The patient is stable. No events overnight. The patient is scheduled for hemodialysis in am complaining of sciatic pain OBJECTIVE DATA: HEENT: Head is normocephalic. NECK: Supple. HEART: Regular rate. LUNGS: Diminished breath sounds at the base. ABDOMEN: Soft, nontender to palpation. No rebound or guarding. EXTREMITIES: Negative for clubbing, cyanosis, no edema. DERMATOLOGIC: No rashes. MUSCULOSKELETAL: No joint effusion. NEUROLOGIC: No change in exam. MEDICATIONS: Reviewed. Problems: Exam/Review of Systems Vital Signs Vitals Vital Signs Date Time Temp Pulse Resp B/P Pulse Ox O2 Delivery O2 Flow Rate FiO2 12/25/16 07:30 98.8 70 20 138/65 94 12/25/16 05:32 2.0 8/17/17 20:04 Nasal Cannula 12/24/16 01:35 21 Intake and Output 12/24/16 12/24/16 12/25/16 15:00 23:00 07:00 Intake Total 200 ml 540 ml 200 ml Output Total 1 ml 2 ml Balance 200 ml 539 ml 198 ml Results Result Diagram: 12/25/16 0605 12/25/16 0605 Results 24 hrs Laboratory Tests Test 12/24/16 13:08 12/24/16 18:05 12/24/16 20:52 12/25/16 06:05 Bedside Glucose 149 170 153 White Blood Count 9.0 Red Blood Count 2.57 L Hemoglobin 7.6 L Hematocrit 26.1 L Mean Corpuscular Volume 101.6 H Mean Corpuscular Hemoglobin 29.6 Mean Corpuscular Hemoglobin Concent 29.1 L Red Cell Distribution Width 15.8 H Platelet Count 380 Mean Platelet Volume 8.0 Neutrophils % 58.5 Lymphocytes % 26.8 Monocytes % 7.8 Eosinophils % 5.6 Basophils % 0.6 Nucleated Red Blood Cells % 0.0 Neutrophils # (Manual) 5 Lymphocytes # 2.4 Monocytes # 0.7 Eosinophils # 0.5 Basophils # 0.1 Nucleated Red Blood Cells # 0.0 Prothrombin Time 14.4 H Prothrombin Time Ratio 1.1 INR International Normalized Ratio 1.12 Sodium Level 140 Potassium Level 5.2 H Chloride Level 100 Carbon Dioxide Level 27 Anion Gap 18 H Blood Urea Nitrogen 51 H Creatinine 3.34 H Glucose Level 102 # Calcium Level 8.6 Total Bilirubin 0.0 L Direct Bilirubin 0.00 Indirect Bilirubin 0.0 Aspartate Amino Transf (AST/SGOT) 28 Alanine Aminotransferase (ALT/SGPT) 23 Alkaline Phosphatase 218 H Total Protein 6.7 Albumin 2.9 L Globulin 3.80 H Albumin/Globulin Ratio 0.76 Test 12/25/16 08:23 Bedside Glucose 98 Medications Medications Current Medications Sertraline HCl (Zoloft) 100 mg DAILY PO Last administered on 12/25/16 09:00; Admin Dose 100 MG; Start 12/07/16 at 09:00 Amlodipine Besylate (Norvasc) 5 mg BID PO Last administered on 12/25/16 11:26 ; Admin Dose 5 MG; Start 12/06/16 at 21:00 Losartan Potassium (Cozaar) 50 mg BID PO Last administered on 12/24/16 20:55; Admin Dose 50 MG; Start 12/06/16 at 21:00 Atorvastatin Calcium (Lipitor) 80 mg DAILY@21 PO Last administered on 20:55; Admin Dose 80 MG; Start 12/06/16 at 21:00 Polyethylene Glycol (Miralax) 17 gm DAILY PO Last administered on 12/25/16 11: 27; Admin Dose 17 GM; Start 12/07/16 at 09:00 Docusate Sodium (Colace) 100 mg BID PO Last administered on 12/25/16 11:26; Admin Dose 100 MG; Start 12/06/16 at 21:00 Metoprolol Tartrate (Lopressor) 100 mg BID PO Last administered on 12/24/16 20 :55; Admin Dose 100 MG; Start 12/06/16 at 21:00 Vitamin B Complex/ Vitamin C (Berocca) 1 cap BID PO Last administered on 11:26; Admin Dose 1 CAP; Start 12/06/16 at 21:00 Cholecalciferol (Vitamin D) 400 units DAILY PO Last administered on 12/25/16 09:00; Admin Dose 400 UNITS; Start 12/07/16 at 09:00 Pantoprazole (Protonix Tab) 40 mg DAILY@06 PO Last administered on 12/25/16 06 :17; Admin Dose 40 MG; Start 12/07/16 at 06:00 Hydralazine HCl (Apresoline) 50 mg TID PO Last administered on 12/24/16 20:56 ; Admin Dose 50 MG; Start 12/06/16 at 21:00 Methocarbamol (Robaxin) 500 mg TID PRN PO MUSCLE SPASMS Last administered on 08:51; Admin Dose 500 MG; Start 12/06/16 at 17:00 Diphenhydramine HCl (Benadryl) 25 mg Q6H PRN PO ITCHING Last administered on 10:33; Admin Dose 25 MG; Start 12/06/16 at 15:30 Miscellaneous Information 1 ea NOTE XX ; Start 12/06/16 at 16:00 Glucose (Glutose) 15 gm Q15M PRN PO DECREASED GLUCOSE; Start 12/06/16 at 16:00 Glucose (Glutose) 22.5 gm Q15M PRN PO DECREASED GLUCOSE; Start 12/06/16 at 16: 00 Dextrose (D50w Syringe) 25 ml Q15M PRN IV DECREASED GLUCOSE; Start 12/06/16 at 16:00 Dextrose (D50w Syringe) 50 ml Q15M PRN IV DECREASED GLUCOSE; Start 12/06/16 at 16:00 Glucagon (Glucagen) 1 mg Q15M PRN IM DECREASED GLUCOSE; Start 12/06/16 at 16:00 Glucose (Glutose) 15 gm Q15M PRN BUCCAL DECREASED GLUCOSE; Start 12/06/16 at 16 :00 Acetaminophen (Tylenol Tab) 650 mg Q4H PRN PO PAIN; Start 12/06/16 at 17:00 Magnesium Hydroxide (Milk Of Mag) 30 ml BID PRN PO CONSTIPATION; Start at 17:00 Lactulose (Enulose) 20 gm DAILY PRN PO CONSTIPATION; Start 12/06/16 at 17:00 Oxycodone HCl (Oxycontin) 10 mg Q8 PO Last administered on 12/25/16 06:17; Admin Dose 10 MG; Start 12/07/16 at 11:30 Bisacodyl (Dulcolax Supp) 10 mg DAILY [place] ; Start 12/08/16 at 09:00 Hydromorphone HCl (Dilaudid) 0.5 mg Q3H PRN IV PAIN Last administered on 12/25/16 11:17; Admin Dose 0.5 MG; Start 12/13/16 at 11:10 Senna (Senokot) 2 tab HS PO Last administered on 12/24/16 20:55; Admin Dose 2 TAB; Start 12/13/16 at 21:00 Gabapentin (Neurontin) 300 mg DAILY PO Last administered on 12/25/16 11:25; Admin Dose 300 MG; Start 12/20/16 at 09:00 Warfarin Sodium (Coumadin) 5 mg DAILY@17 PO ; Start 12/25/16 at 17:00 CHANDA ROJAS DO Dec 25, 2016 11:50
[2016-12-25] MEDS ORDERED: WARFARIN 5 MG TAB PO SCH (17:00)
--- NOTE | 2016-12-25 20:43 | PN ---
Date/Time of Note Date/Time of Note DATE: 12/25/16 TIME: 20:42 Assessment/Plan Lines/Catheters IV Catheter Type (from Nrsg): Liset cath Lara in Place (from Nrsg): No Assessment/Plan Chief Complaint/Hosp Course Chronic kidney disease IStatus post permacath placement status post left upper extremity AV fistula We will use the permacath Patient with very small veins We will monitor the fistula If it does not mature may need a upper extremity graft placement We will follow-up in my office Discussed with the patient Problems: Subjective 24 Hr Interval Summary Constitutional: improved Pain Control: mild Exam/Review of Systems Vital Signs Vitals Vital Signs Date Time Temp Pulse Resp B/P Pulse Ox O2 Delivery O2 Flow Rate FiO2 12/25/16 08:29 81 18 96 Nasal Cannula 2.0 12/25/16 07:30 98.8 138/65 12/24/16 01:35 21 Intake and Output 12/24/16 12/24/16 12/25/16 15:00 23:00 07:00 Intake Total 200 ml 540 ml 200 ml Output Total 1 ml 2 ml Balance 200 ml 539 ml 198 ml Exam ENMT: mucosa pink and moist, nl external ears & nose, nl lips & teeth, nl nasal mucosa & septum Neck: non-tender, supple Respiratory: clear to auscultation, normal air movement Cardiovascular: nl pulses, regular rate and rhythm Results Result Diagram: 12/25/1660412/25/16604 ROSALIND PINEDA MD Dec 25, 2016 20:43
--- NOTE | 2016-12-25 22:12 | PN ---
DATE: 12/25/2016 CARDIOLOGY FOLLOW UP PROGRESS NOTE SUBJECTIVE DATA: The patient has no reported chest pain, no pressure. MEDICATIONS: Reviewed. PHYSICAL EXAMINATION: VITAL SIGNS: Temperature 98.8, heart rate of 80, normal. Blood pressure 130/65, respiratory rate of 18, sating 94%. HEAD: Normocephalic, atraumatic. CARDIOVASCULAR: Regular rate and rhythm. PULMONARY: No wheezes. GI: Obese. Soft. EXTREMITIES: edema. NEURO: Awake. LABORATORY AND DIAGNOSTIC DATA: Sodium 140, potassium 5.2, BUN of 51, creatinine 3.3. Glucose of 102. WBC of 9.3, hemoglobin 7.6, platelets of 380. INR is 1.12. ASSESSMENT AND PLAN: 1. Paroxysmal atrial fibrillation. 2. History of cerebrovascular accident. 3. Renal failure on dialysis. 4. Hypertension, controlled now. 5. Anemia. RECOMMENDATION: Will continue with the current cardiac care. Remains in sinus rhythm. Coumadin will be adjusted as per Internal Medicine. Discharge planning is in process. Dictated By: Silvestre Escobedo MD /saul/ /Document#: [id number]
== END 2016-12-25 11:45 | DRG 981 ==
LOC: VRC 10:56
PROVIDERS: ADMIT Physical Medicine & Rehabilitation; ATTEND Internal Medicine Nephrology
PROC: 5A1D60Z (ICD-10-PCS; 2016-12-07)
PROC: 03180ZF Bypass Left Brachial Artery to Lower Arm Vein, Open Approach (ICD-10-PCS; 2016-12-23)
PROC: 02HV33Z Insertion of Infusion Device into Superior Vena Cava, Percutaneous Approach (ICD-10-PCS; principal; 2016-12-23 17:30)
DX: G82.22 Paraplegia, incomplete (principal); G92 Toxic encephalopathy; E11.21 Type 2 diabetes mellitus with diabetic nephropathy; I12.0 Hypertensive chronic kidney disease with stage 5 chronic kidney disease or end stage renal disease; N18.6 End stage renal disease; F11.20 Opioid dependence, uncomplicated; F33.1 Major depressive disorder, recurrent, moderate; B37.49 Other urogenital candidiasis; Z99.2 Dependence on renal dialysis; Z86.73 Personal history of transient ischemic attack (TIA), and cerebral infarction without residual deficits; Z79.82 Long term (current) use of aspirin; R00.2 Palpitations; Z79.02 Long term (current) use of antithrombotics/antiplatelets; Z86.718 Personal history of other venous thrombosis and embolism; E87.5 Hyperkalemia; M25.562 Pain in left knee; W06.XXXA Fall from bed, initial encounter; Y93.89 Activity, other specified; Y92.230 Patient room in hospital as the place of occurrence of the external cause; J44.9 Chronic obstructive pulmonary disease, unspecified; M25.552 Pain in left hip; Z76.5 Malingerer [conscious simulation]; M54.9 Dorsalgia, unspecified; R13.10 Dysphagia, unspecified; G25.3 Myoclonus; D63.8 Anemia in other chronic diseases classified elsewhere
CPT/HCPCS: 71010; 73560; 80048; 80053; 81001; 82728; 82962; 83540; 83735; 84100; 84132; 85025; 85610; 86706; 86708; 86803; 87081; 87086; 87340; 90935; 92507; 92523; 92526; 92610; 93005; 93306; 93970; 94640; 94664; 97110; 97112; 97116; 97150; 97163; 97530; 97535; 97542; A4310; C1725; C1752; J0360; J0690; J1100; J1170; J1644; J1815; J2250; J2405; J2765; J2795; J2916; J3010; J7042; J7050; L1820; Q4081; Q9967

== ENCOUNTER 2017-01-12 08:42 | Inpatient (IN) | payer BC ==
[~2017-01-12] VITALS: Ht 167.6 cm; Wt 78.8 kg
--- NOTE | 2017-01-12 09:34 | RADRPT ---
PROCEDURE: XR Chest. CLINICAL INDICATION: chest pain, CVA TECHNIQUE: Single frontal view of the chest was obtained COMPARISON: 06/24/2016 FINDINGS: The heart and mediastinum are within normal limits. There is a right-sided Perma-Cath in place. The patient is status post thoracic spine fixation. The lungs are clear. There is no pleural effusion or pneumothorax. RPTAT: AA IMPRESSION: No acute disease. .Jairo Fatima MD, MD Date Time Electronically viewed and signed by .Jairo Fatima MD, on 01/12/2017 09:34 .S/
[2017-01-12 09:43] LABS: BASOPHIL # 0.1 10^3/ul (0.0-0.1); BASOPHILS % 0.7 % (0.0-2.0); EOSINOPHILS # 0.5 10^3/ul (0.0-0.5); EOSINOPHILS % 5.6 % (0.0-7.0); HEMATOCRIT 33.3 % (37.0-47.0); HEMOGLOBIN 10.5 g/dl (12.0-16.0); LYMPHOCYTES # 2.3 10^3/ul (0.8-2.9); LYMPHOCYTES % 25.6 % (15.0-51.0); MEAN CORPUSCULAR HEMOGLOBIN 29.5 pg (29.0-33.0); MEAN CORPUSCULAR HGB CONC 31.5 g/dl (32.0-37.0); MEAN CORPUSCULAR VOLUME 93.5 fl (82.0-101.0); MEAN PLATELET VOLUME 8.1 fl (7.4-10.4); MONOCYTE # 0.6 10^3/ul (0.3-0.9); MONOCYTES % 6.1 % (0.0-11.0); NEUTROPHILS % 61.7 % (39.0-77.0); PLATELET COUNT 293 10^3/UL (140-415); RED BLOOD COUNT 3.56 10^6/ul (4.20-5.40); RED CELL DISTRIBUTION WIDTH 14.3 % (11.5-14.5)
[2017-01-12 09:55] LABS: INR 1.91; PROTIME 22.1 Sec (12.2-14.2); PT RATIO 1.7
[2017-01-12 09:56] LABS: PARTIAL THROMBOPLASTIN TIME 45.4 Sec (25.0-35.0)
[2017-01-12 10:02] LABS: ANION GAP 13 (8-16); BLOOD UREA NITROGEN 39 mg/dl (7-20); CARBON DIOXIDE 25 mmol/L (21-31); CHLORIDE 98 mmol/L (97-110); CREATININE 4.25 mg/dl (0.44-1.00); GLUCOSE 110 mg/dl (70-220); POTASSIUM 4.6 mmol/L (3.5-5.1); SODIUM 131 mmol/L (135-144)
--- NOTE | 2017-01-12 10:13 | RADRPT ---
PROCEDURE: CT Brain without contrast. CLINICAL INDICATION: 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 deficit.. TECHNIQUE: A CT of the brain was performed on a multi-slice CT scanner utilizing axial sections fr om the skull base through the vertex without contrast. Coronal and sagittal reconstructed images wer e provided. One or more of the following does reduction techniques were used: Automated exposure c ontrol; adjustment of the mA and/or kV according to patient size; use of the aorta of reconstruction technique. Images were reviewed on a high-resolution PACS workstation. Exam DLP equals 720 mGy-cm. The CTDI equals 43.7 mGy COMPARISON: CT abdomen pelvis 06/24/2016 FINDINGS: Mild diffuse cerebral and cerebellar atrophy is present. There is no evidence of intracranial hemor rhage, mass effect or midline shift. No abnormal intra-axial or extra-axial fluid collections are s een. There are minimal deep white matter patchy hypodensities which are nonspecific, but typically seen in small vessel chronic ischemic disease. there is a stable chronic left basal ganglier infarc t. There are no new basal ganglia infarcts The density of the brain is otherwise normal and the panchal /white matter differentiation is well preserved. The osseous structures and visualized paranasal si nuses are unremarkable. Vascular calcifications are identified. IMPRESSION: 1. Stable CT appearance of the brain compared to 06/24/2016 without evidence of acute intracranial pathology. 2. Mild diffuse atrophy and minimal deep white matter microangiopathic ischemic changes. 3. Stable left basal ganglia infarct. 4. Atherosclerotic calcifications of the intracranial carotid arteries. RPTAT: KK .Jean Ghosh MD, Date Time Electronically viewed and signed by .Jean Ghosh MD, MD on 01/12/2017 10:12 .B/
[2017-01-12 10:30] LABS: TROPONIN-I < 0.012 ng/ml (0.00-0.12)
[2017-01-12] MEDS ORDERED: ASPIRIN 325 MG TAB PO ONE (10:30)
[2017-01-12] MEDS ORDERED: ACETAMINOPHEN 325 MG TAB PO PRN (11:00)
[2017-01-12] MEDS ORDERED: ONDANSETRON 4 MG INJ IV PRN (11:00)
[2017-01-12 11:12] LABS: UR CLARITY TURBID (CLEAR); UR COLOR YELLOW (YELLOW)
[2017-01-12 11:13] LABS: ADD UMIC YES; UR BILIRUBIN (Dip) NEGATIVE (NEGATIVE); UR BLOOD (Dip) 1+ mg/dL (NEGATIVE); UR GLUCOSE (Dip) NEGATIVE (NEGATIVE); UR KETONES (Dip) NEGATIVE (NEGATIVE); UR NITRITE (Dip) NEGATIVE (NEGATIVE); UR TOTAL PROTEIN (Dip) 4+ mg/dl (NEGATIVE); UR UROBILINOGEN (Dip) 0.2 E.U./dL mg/dL (NEGATIVE)
[2017-01-12 11:14] LABS: UR BACTERIA MANY /HPF (NONE SEEN); UR LEUKOCYTE ESTERASE (Dip) 4+ Leu/ul (NEGATIVE)
[2017-01-12] MEDS: REPAGLINIDE 1 MG TAB PO SCH ×2 (11:30→22:15)
--- NOTE | 2017-01-12 11:40 | HP ---
DATE OF ADMISSION: 01/12/2017 CHIEF COMPLAINT: Slurred speech. HISTORY OF PRESENT ILLNESS: This is a 51-year-old female with a past medical history of end-stage renal disease, history of CVA, history of diabetes, diabetic nephropathy, history of diabetic neuropathy, history of coronary artery disease, dyslipidemia, hypertension, who presents to [facility] with slurred speech. The patient recently was started on Valtrex approximately 2 days ago after developing a shingle-type rash. The patient was in normal state until yesterday evening when she started having some slurred speech. This morning the patient's speech continue to be slurred. As a result, she was brought into emergency room for evaluation. Upon arrival, the patient had a CT scan of the brain, which showed stable appearance, no acute infarcts were noted. The patient was given aspirin in emergency room. There has been no reports of any hemoptysis, hematemesis, or hematochezia. PAST MEDICAL HISTORY: As stated above. History of end-stage renal disease, history of diabetes, hypertension, CVA, COPD, coronary disease, history of osteomyelitis, history of T7 paraplegia, history of cognitive decline, history of anxiety disorder, hypertension. PAST SURGICAL HISTORY: Status post thoracic spine laminectomy with epidural abscess drainage, status post PermCath placement, status post AV fistula placement. FAMILY HISTORY: Noncontributory. SOCIAL HISTORY: Does not drink, smoke, or do drugs. MEDICATIONS: Reviewed and reconciled. REVIEW OF SYSTEMS: A 14-point review of systems conducted. Pertinent positives stated in HPI, otherwise negative. PHYSICAL EXAMINATION: VITAL SIGNS: Blood pressure is 130/65, respirations 20, pulse 70, temperature 98.8. HEENT: Head is normocephalic. NECK: Supple. HEART: Regular rate. LUNGS: Show diminished breath sounds at the base. ABDOMEN: Soft, nontender to palpation. No rebound or guarding. EXTREMITIES: Negative for clubbing, cyanosis. No edema. DERMATOLOGIC: The patient had an erythematous, papular-type rash on her back. NEUROLOGIC: Limited exam due to lack of patient cooperation, but no obvious focal deficits. DATA: Shows a white count 9.0, hemoglobin 10.5, crit of 33.3, platelet count 293. Sodium 131, potassium 4.6, BUN 439, creatinine 4.25. IMAGING STUDIES: CT scan of the brain, chest x-ray, stated in HPI. Chest x-ray showed no acute findings. ASSESSMENT AND PLAN: 1. Slurred speech. Etiology unclear, rule out cerebrovascular accident, possible transient ischemic attack. The patient is status post CT scan of brain, which showed no acute findings. The patient is status post aspirin, currently on Coumadin. Plan is to continue current medical management. We will admit the patient to telemetry. Do neuro neuro checks q.[address] a neurology consult with Dr. Hart and a cardiology consult with Dr. Escobedo for evaluation and monitor closely. 2. End-stage renal disease. The patient will be scheduled for dialysis today. We will dialyze for 3 hours on 3 potassium bath, calcium 2.5, ultrafiltration as tolerated. 3. Hypertension. Continue current blood pressure regimen. 4. History of chronic obstructive pulmonary disease. Continue medical management. 5. History of coronary artery disease. Continue current treatment plan. Follow up with Cardiology. 6. History of T7 paraplegia. Continue physical therapy. 7. Anemia. We will monitor H and H levels. We will give Epogen as needed. 8. Mineral bone disorder. We will monitor calcium and phosphorus levels. 9. Dyslipidemia. Continue statin therapy. 10. Diabetes. Continue Accu-Cheks and insulin sliding scale. Please note, I spent 25 minutes [id number] time with the patient, patient's , discussing code status. Patient is FULL CODE. Dictated By: Buck Seals DO /saul/josee /Document#: [id number]
[2017-01-12] MEDS ORDERED: ALBU2.5V3 NEB (11:54)
[2017-01-12] MEDS ORDERED: DIPH25CA6 PO (11:55)
[2017-01-12] MEDS ORDERED: VITA1TAB83 PO (11:55)
[2017-01-12] MEDS ORDERED: DOCU-144 PO (11:56)
[2017-01-12] MEDS ORDERED: LOSA50TA6 PO (11:59)
[2017-01-12] MEDS: SEVELAMER 800 MG TAB PO SCH ×2 (12:00→22:15)
[2017-01-12] MEDS: INSULIN ASPART [NOVOLOG] 3 ML PEN SC SCH ×3 (12:00→20:29)
[2017-01-12] MEDS ORDERED: HYDR2TAB36 PO (12:01)
[2017-01-12] MEDS ORDERED: BISA10SU75 PR (12:01)
[2017-01-12] MEDS ORDERED: LACT20SO2 PO (12:02)
[2017-01-12] MEDS ORDERED: POLY17PO6 PO (12:04)
[2017-01-12] MEDS ORDERED: MULTI PO (12:06)
[2017-01-12] MEDS ORDERED: GABA300C16 PO (12:07)
[2017-01-12] MEDS ORDERED: OXYC10TA63 PO (12:08)
[2017-01-12] MEDS ORDERED: AMLO5TAB4 PO (12:08)
[2017-01-12] MEDS ORDERED: METH500T PO (12:09)
[2017-01-12] MEDS ORDERED: SENN-53 PO (12:09)
[2017-01-12] MEDS ORDERED: ACET-141 PO (12:10)
[2017-01-12] MEDS ORDERED: ASCO500C7 PO (12:10)
[2017-01-12] MEDS ORDERED: CHOL400T10 PO (12:11)
[2017-01-12] MEDS ORDERED: ZINC220T PO (12:11)
--- NOTE | 2017-01-12 12:42 | ERA ---
ER Documentation Chief Complaint Date/Time DATE: 01/12/17 TIME: 12:38 Chief Complaint BIB RA FOR EVAL OF ALOC. PT SCHEDULED FOR HD TODAY HPI Patient is a 51-year-old female with dialysis and COPD who presents with altered mental status. Please note the history and physical exam is limited secondary to the patient's mental status. The patient was brought in by ambulance. Her sugar was 154 and EKG showed sinus rhythm. She came from [facility]. Her last dialysis was Wednesday and she is due for dialysis today. She was last seen normal at 11 PM last night. She has slurred speech. Her primary doctor is Dr. Seals. ROS All systems reviewed and are negative except as per history of present illness. Medications Home Meds Active Scripts Sevelamer Hcl* (Renagel*) 800 Mg Tab, 800 MG PO WITH MEALS for 30 Days, TAB Prov:CHAMP PETER 09/06/15 Repaglinide* (Prandin*) 1 Mg Tab, 0.5 MG PO AC MEALS for 30 Days, TAB Prov:CHAMP PETER 09/06/15 Pantoprazole* (Pantoprazole*) 40 Mg Tabec, 40 MG PO DAILY@06 for 30 Days Prov:CHAMP PETER 09/06/15 Metoprolol Tartrate* (Lopressor*) 100 Mg Tab, 100 MG PO BID for 30 Days, TAB Prov:CHAMP PETER 09/06/15 Reported Medications Zinc Sulfate* (Zinc Sulfate*) 220 Mg Tablet, 220 MG PO DAILY, TAB 01/12/17 Cholecalciferol* (Vitamin D*) 400 Unit Tablet, 400 UNIT PO DAILY, TAB 01/12/17 Ascorbic Acid* (Vitamin C*) 500 Mg Capsule.sa, 500 MG PO DAILY, CAP 01/12/17 Acetaminophen* (Acetaminophen*) 500 MG Extra Strength Tablet, 1000 MG PO Q6H Y for PAIN AND OR ELEVATED TEMP, TAB 01/12/17 Sennosides* (Senna Lax*) 8.6 Mg Tablet, 1 TAB PO DAILY, TAB 01/12/17 Methocarbamol* (Robaxin*) 500 Mg Tab, 500 MG PO Q8 Y for MUSCLE SPASMS, TAB 01/12/17 Oxycodone Hcl* (Oxycontin*) 10 Mg Tab.sr.12h, 10 MG PO Q8, TAB 01/12/17 Amlodipine Besylate* (Norvasc*) 5 Mg Tablet, 5 MG PO DAILY, TAB 01/12/17 Gabapentin* (Gabapentin*) 300 Mg Capsule, 300 MG PO QHS, #60 CAP 01/12/17 Multivitamins* (Theragran*) 1 Tab Tab, 1 TAB PO DAILY, TAB 01/12/17 Polyethylene Glycol* (Miralax*) 17 Gm Powd.pack, 17 GM PO DAILY Y for CONSTIPATION, #30 PACKET 01/12/17 Lactulose* (Lactulose*) 20 Gm/30 Ml Solution, 20 GM PO DAILY Y for CONSTIPATION , ML 01/12/17 Bisacodyl* (Bisacodyl*) 10 Mg Supp, 10 MG NJ Q24H Y for CONSTIPATION, SUPP 01/12/17 Hydromorphone Hcl* (Dilaudid*) 2 Mg Tablet, 2 MG PO Q3H Y for PAIN, TAB 01/12/17 Losartan Potassium* (Losartan Potassium*) 50 Mg Tablet, 50 MG PO DAILY, TAB 01/12/17 Docusate Sodium* (Colace*) 100 Mg Capsule, 100 MG PO QHS Y for CONSTIPATION, # 30 CAP 01/12/17 Vitamin B Complex (B Complex # 1) 1 Each Tablet, 1 EACH PO DAILY, TAB 01/12/17 Diphenhydramine Hcl* (Diphenhydramine Hcl*) 25 Mg Capsule, 25 MG PO Q6 Y for ITCHING, CAP 01/12/17 Albuterol Sulfate* (Albuterol Sulfate* Neb) 0.083%-3 Ml Neb, 2.5 MG NEB Q6 Y for WHEEZING AND SOB, #30 VIAL 01/12/17 Hydralazine Hcl* (Hydralazine Hcl*) 50 Mg Tab, 50 MG PO TID, #90 TAB 06/24/16 Sertraline Hcl* (Zoloft*) 50 Mg Tablet, 50 MG PO DAILY, #30 TAB 06/24/16 Atorvastatin* (Atorvastatin*) 80 Mg Tablet, 80 MG PO QHS, #30 TAB 06/24/16 Discontinued Reported Medications Tolterodine Tartrate* (Tolterodine Tartrate*) 2 Mg Tablet, 2 MG PO BID, #60 TAB 06/24/16 Zolpidem Tartrate* (Zolpidem Tartrate*) 5 Mg Tablet, 5 MG PO QHS Y for INSOMNIA , #30 TAB 06/24/16 Discontinued Scripts Metoclopramide Hcl* (Metoclopramide Hcl*) 5 Mg Tablet, 5 MG PO BID, #60 TAB 3 Refills Prov:JACQUE SHARPEEP S. 06/26/16 Amlodipine Besylate* (Amlodipine Besylate*) 2.5 Mg Tablet, 2.5 MG PO DAILY, #30 TAB 2 Refills Prov:MILADIS LOYA S. 06/26/16 Sitagliptin* (Januvia*) 50 Mg Tab, 50 MG PO DAILY for 30 Days, TAB Prov:REGIDORCHAMP 09/06/15 Gabapentin* (Neurontin*) 300 Mg Cap, 300 MG PO TID for 30 Days, CAP Prov:REGIDORCHAMP 09/06/15 Furosemide* (Lasix*) 40 Mg Tab, 40 MG PO 06,12,18 for 30 Days, TAB Prov:REGIDORCHAMP 09/06/15 Apixaban* (Eliquis*) 5 Mg Tablet, 5 MG PO BID for 30 Days, TAB Prov:REGIDORCHAMP 09/06/15 Aspirin (Aspirin) 81 Mg Chew, 162 MG PO DAILY for 30 Days, TAB Prov:REGIDORCHAMP 09/06/15 Allergies Allergies: Coded Allergies: codeine (Verified Allergy, Mild, 01/12/17) PMhx/Soc History of Surgery: Yes (laminectomy ) Anesthesia Reaction: No Hx 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 Disorder: No Hx Respiratory Disorders: Yes (COPD) Hx Cardiac Disorders: No Hx Psychiatric Problems: No Hx Miscellaneous Medical Probl: Yes (DVT, COPD, CVA, chronic LBP, A-Fib, DM, HTN, ESRD, anxiey) Hx Alcohol Use: No Hx Substance Use: No Hx Tobacco Use: No Smoking Status: Never smoker FmHx Unable to obtain Physical Exam Vitals Vital Signs Date Time Temp Pulse Resp B/P Pulse Ox O2 Delivery O2 Flow Rate FiO2 01/12/17 11:29 98.1 76 20 136/69 96 Room Air 01/12/17 10:27 Nasal Cannula 2 01/12/17 09:18 97.7 77 18 134/70 99 Physical Exam Const: Slurred speech Head: Atraumatic Eyes: Normal Conjunctiva ENT: Normal External Ears, Nose and Mouth. Neck: Full range of motion..~ No meningismus. Resp: Clear to auscultation bilaterally Cardio: Regular rate and rhythm, no murmurs Abd: Soft, non tender, non distended. 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 is equal bilaterally Result Diagram: 01/12/1792901/12/1730 Results 24 hrs Laboratory Tests Test 01/12/17 09:30 01/12/17 09:43 White Blood Count 9.010^3/ul Red Blood Count 3.5610^6/ul Hemoglobin 10.5g/dl Hematocrit 33.3% Mean Corpuscular Volume 93.5fl Mean Corpuscular Hemoglobin 29.5pg Mean Corpuscular Hemoglobin Concent 31.5g/dl Red Cell Distribution Width 14.3% Platelet Count 74273^3/UL Mean Platelet Volume 8.1fl Neutrophils % 61.7% Lymphocytes % 25.6% Monocytes % 6.1% Eosinophils % 5.6% Basophils % 0.7% Nucleated Red Blood Cells % 0.0/100WBC Neutrophils # (Manual) 5.610^3/ul Lymphocytes # 2.310^3/ul Monocytes # 0.610^3/ul Eosinophils # 0.510^3/ul Basophils # 0.110^3/ul Nucleated Red Blood Cells # 0.010^3/ul Prothrombin Time 22.1Sec Prothrombin Time Ratio 1.7 INR International Normalized Ratio 1.91 Activated Partial Thromboplast Time 45.4Sec Sodium Level 131mmol/L Potassium Level 4.6mmol/L Chloride Level 98mmol/L Carbon Dioxide Level 25mmol/L Anion Gap 13 Blood Urea Nitrogen 39mg/dl Creatinine 4.25mg/dl Glucose Level 110mg/dl Calcium Level 9.0mg/dl Troponin I < 0.012ng/ml Urine Color YELLOW Urine Clarity TURBID Urine pH 8.5 Urine Specific [place] 1.025 Urine Ketones NEGATIVEmg/dL Urine Nitrite NEGATIVEmg/dL Urine Bilirubin NEGATIVEmg/dL Urine Urobilinogen 0.2 E.U./dLmg/dL Urine Leukocyte Esterase 4+Rafa/ul Urine Microscopic WBC >200/HPF Urine Bacteria MANY/HPF Urine Hemoglobin 1+mg/dL Urine Glucose NEGATIVEmg/dL Urine Total Protein 4+mg/dl Urine Opiates Screen Urine Barbiturates Urine Amphetamines Screen Urine Benzodiazepines Screen Urine Cocaine Screen Urine Cannabinoids Current Medications Medications (Trade) Dose Ordered Sig/Zenobia Route PRN Reason Start Time Stop Time Status Last Admin Dose Admin Aspirin (Aspirin) 325 mg ONCE ONCE PO 01/12/17 10:30 01/12/17 10:31 DC 01/12/17 11:47 Ondansetron HCl (Zofran Inj) 4 mg ER BRIDGE PRN IV NAUSEA AND/OR VOMITING 01/12/17 11:00 01/12/17 12:17 DC Acetaminophen (Tylenol Tab) 650 mg ER BRIDGE PRN PO MILD PAIN/FEVER 01/12/17 11:00 01/12/17 12:17 DC Amlodipine Besylate (Norvasc) 2.5 mg DAILY PO 01/13/17 09:00 UNV Aspirin (Aspirin) 162 mg DAILY PO 01/13/17 09:00 UNV Atorvastatin Calcium (Lipitor) 80 mg QHS PO 01/12/17 21:00 UNV Hydralazine HCl (Apresoline) 50 mg TID PO 01/12/17 13:00 UNV Metoclopramide HCl (Reglan) 5 mg BID PO 01/12/17 21:00 UNV Metoprolol Tartrate (Lopressor) 100 mg BID PO 01/12/17 21:00 UNV Pantoprazole (Protonix Tab) 40 mg DAILY@06 PO 01/13/17 06:00 UNV Repaglinide (Prandin) 0.5 mg AC MEALS PO 01/12/17 11:30 UNV Sertraline HCl (Zoloft) 50 mg DAILY PO 01/13/17 09:00 UNV Sevelamer HCl (Renagel) 800 mg WITH MEALS PO 01/12/17 12:00 UNV Tolterodine Tartrate (Detrol) 2 mg BID PO 01/12/17 21:00 UNV Miscellaneous Information (* Miscellaneous Pharmacy Order) Discontinue current oral sulfonylur... ONCE ONCE XX 01/12/17 11:00 01/12/17 11:01 UNV Diagnostic Test (Pha) (Accu-Chek) 1 ea 02 XX 01/13/17 02:00 UNV Miscellaneous Information (* Miscellaneous Pharmacy Order) HYPOGLYCEMIA PROTOCOL w... ONCE ONCE XX 01/12/17 11:00 01/12/17 11:01 UNV Insulin Aspart (Novolog Insulin Pen) NOVOLOG *MILD* ALGORITHM WITH MEALS BEDTIME SC 01/12/17 12:00 UNV Miscellaneous Information (* Miscellaneous Pharmacy Order) Discontinue all previ... ONCE ONCE XX 01/12/17 11:00 01/12/17 11:01 UNV Warfarin Sodium (Coumadin) 5 mg DAILY@17 PO 01/12/17 17:00 UNV Procedures/MDM EKG read by me: Rate/Rhythm: Regular rate and rhythm at a normal rate Intervals: Normal Impression: No evidence of ischemia or arrhythmia CT brain shows no hemorrhage per radiology.Chest x-ray read by radiology. Patient is a 51-year-old female presents with slurred speech. She was last seen normal last night at 11 PM and therefore she is outside the window for TPA. The patient was given aspirin after she passed a swallow evaluation and her CT head was negative for bleed. The patient will be admitted to the care of Dr. Seals her primary doctor to a telemetry bed. I am concerned about acute stroke. She will likely need neurology consultation and MRI which can be ordered by the inpatient team. Critical Care: Time: 35 minutes excluding all billable procedures. Treatments/Evaluations: Close monitoring and treatment of unstable vital signs, cardiorespiratory, and neurologic status, while maintaining tight balance of fluid, respiratory, and cardiac interventions. Departure Diagnosis: Primary Impression: Stroke Qualified Code: I63.9 - Cerebrovascular accident (CVA), unspecified mechanism Additional Impression: Altered level of consciousness Condition: NILE Recinos MD Jan 12, 2017 12:42
[2017-01-12] MEDS ORDERED: GLUCOSE GEL 15 GRAM TUBE PO PRN ×2 (13:00)
[2017-01-12] MEDS ORDERED: DEXTROSE 50% 50 ML SYRINGE IV PRN (13:00)
[2017-01-12] MEDS ORDERED: GLUCAGON 1 MG INJ IM PRN (13:00)
[2017-01-12] MEDS ORDERED: GLUCOSE GEL 15 GRAM TUBE BUCCAL PRN (13:00)
[2017-01-12 15:40] VITALS: TEMP 98.2
[2017-01-12 16:07] LABS: ALBUMIN 3.5 g/dl (3.3-4.9); TOTAL PROTEIN 7.4 g/dl (6.1-8.1)
[2017-01-12 16:50] VITALS: BP 183/86; PULSE 74; RESP 20; Ht 167.6 cm; Wt 78.8 kg
--- NOTE | 2017-01-12 16:57 | RADRPT ---
PROCEDURE: CT ABDOMEN AND PELVIS WITHOUT CONTRAST: CLINICAL INDICATION: 51 years of age, female , left lower quadrant abdominal pain. COMPARISON: CT chest July 15, 2015 TECHNIQUE: CT of the abdomen and pelvis was performed without intravenous contrast. Oral contrast wa s not administered prior to the examination. Coronal and sagittal reformatted images were obtained from the axial source images. Images were revi ewed on a high-resolution PACS workstation. Dose information: Based on a 32 cm phantom, the estimated radiation dose (CTDIvol mGy) for each seri es in this exam is 19.6. The estimated cumulative dose (DLP mGy-cm) is 1124. One or more of the following dose reduction techniques were used: - Automated exposure control. - Adjustment of the mA and/or kV according to patient size. - Use of iterative reconstruction technique. FINDINGS: In the absence of intravenous contrast, the study constitutes a limited assessment of the solid orga ns, bowel and vessels. LUNG BASES: Mild nodularity with centrilobular branching structures lateral right middle lobe and po sterior right lower lobe is in keeping with mild bronchiolitis. Bilateral dependent atelectasis.. ABDOMEN/PELVIS: Liver: Normal noncontrast appearance. Gallbladder: Cholelithiasis without evidence of acute cholecystitis. Bile ducts: No intrahepatic or extrahepatic biliary duct dilatation. Spleen: Normal noncontrast appearance. Pancreas: Normal noncontrast appearance. Adrenal glands: Normal noncontrast appearance. Kidneys and ureters: Punctate nonobstructing calculus right kidney. Punctate nonobstructing calculus left kidney. Negative for ureteral calculi or hydronephrosis. Kidneys are normal size. There is non specific bilateral perinephric fat stranding. Aorta and IVC: Atherosclerotic calcification of the aortic branch vessels. Aorta has normal caliber. Lymph nodes: Normal noncontrast appearance. Gastrointestinal tract: Colonic diverticulosis greatest in sigmoid colon without diverticulitis. [place] el loops are decompressed. There is a distal duodenal diverticulum without diverticulitis. Appendix: Normal Bladder: Normal noncontrast appearance. Pelvic Organs: The uterus and adnexa are unremarkable. Peritoneal cavity: No free fluid or free intraperitoneal air. Abdominal wall: Mild diffuse body wall edema. 3 cm nodular focus of soft tissue in the subcutaneous fat posterior to the upper sacrum is nonspecific. Small fat containing umbilical hernia. BONES: Musculoskeletal: There is posterior instrumented fusion in the lower thoracic spine at T8, T9 and T1 0 with pedicle screws and rods that are incompletely imaged. This is new since prior chest CT. There is absence of the right pedicle and lamina at T8 that is incompletely imaged (3/1). Right T9 pedicl e screw crosses the medial cortex and narrows the central spinal canal There is degenerative disc di sease in the lower thoracic spine with bulky anterior osteophytes. There is mild paravertebral soft tissue swelling in the posterior mediastinum at the level of the posterior fusion. There is bony destruction of the endplates at the L5-S1 disc level with edema in the surrounding fat concerning for diskitis and osteomyelitis. There is also presacral edema. There is a focal erosion at the left anterior superior endplate of L4 that may represent the same process (601/55). There is erosive arthritis of the right sacroiliac joint also concerning for septic arthritis. Left sacroiliac joint is unremarkable. IMPRESSION: Endplate destruction at the L5-S1 disc level with edema in the surrounding fat is concerning for spo ndylodiskitis and osteomyelitis. Suggest diagnostic disk aspiration. There is bony erosion of the le ft anterior superior endplate of L4 that may also be infectious. Erosive arthritis of the right sacroiliac joint is concerning for septic arthritis. Status post PSIF in the lower thoracic spine at T8, T9 and T10 that is incompletely imaged. This is new since prior chest CT. There is absence of the right pedicle and lamina at T8 and there is parave rtebral soft tissue swelling in the posterior mediastinum. Suggest correlation with previous imaging and surgical history and/or dedicated CT of the thoracic spine. Nodular soft tissue density in the subcutaneous fat posterior to the upper sacrum is nonspecific. Co rrelate clinically for signs of hematoma or soft tissue infection. Colonic diverticulosis without diverticulitis. Cholelithiasis without evidence of acute cholecystitis or biliary obstruction. Mild bronchiolitis in right middle lobe and right lower lobe may be infectious or inflammatory. Critical results were discussed with Jessenia Sales RN on the patient's floor by Dr. Phoebe Carvajal on January 12, 2017 at 4:55 PM. RPTAT: HCTS Ariella Carvajal, Physician Date Time Electronically viewed and signed by Ariella Carvajal, Physician on 01/12/2017 16:57 CS/
--- NOTE | 2017-01-12 18:30 | CONS ---
Date/Time of Note Date/Time of Note DATE: 01/12/17 TIME: 18:25 Assessment/Plan Assessment/Plan Chief Complaint/Hosp Course L5-S1 discitis/OM Possible septic arthritis of R sacroiliac joint ESRD DM CAD HTN Hx CVA Plan: Recommend CT guided needle aspiration prior starting on abx, will order bld cx Problems: Consultation Date/Type/Reason Admit Date/Time Jan 12, 2017 at 10:35 Type of Consultation: id Referring Provider: SAM CANTU DO Past Surgical History Past Surgical Hx: no surgical history Social History Smoking Status: Former smoker Exam/Review of Systems Vital Signs Vitals Vital Signs Date Time Temp Pulse Resp B/P Pulse Ox O2 Delivery O2 Flow Rate FiO2 01/12/17 15:40 98.2 77 20 147/64 98 Room Air 01/12/17 10:27 2 Results Result Diagram: 01/12/17 0930 01/12/17 0930 Results 24 hrs Laboratory Tests Test 01/12/17 09:30 01/12/17 09:43 01/12/17 09:50 01/12/17 13:05 White Blood Count 9.0 Red Blood Count 3.56 #L Hemoglobin 10.5 #L Hematocrit 33.3 #L Mean Corpuscular Volume 93.5 Mean Corpuscular Hemoglobin 29.5 Mean Corpuscular Hemoglobin Concent 31.5 L Red Cell Distribution Width 14.3 Platelet Count 293 # Mean Platelet Volume 8.1 Neutrophils % 61.7 Lymphocytes % 25.6 Monocytes % 6.1 Eosinophils % 5.6 Basophils % 0.7 Nucleated Red Blood Cells % 0.0 Neutrophils # (Manual) 5.6 Lymphocytes # 2.3 Monocytes # 0.6 Eosinophils # 0.5 Basophils # 0.1 Nucleated Red Blood Cells # 0.0 Prothrombin Time 22.1 #H Prothrombin Time Ratio 1.7 INR International Normalized Ratio 1.91 Activated Partial Thromboplast Time 45.4 H Sodium Level 131 L Potassium Level 4.6 Chloride Level 98 Carbon Dioxide Level 25 Anion Gap 13 Blood Urea Nitrogen 39 H Creatinine 4.25 H Glucose Level 110 Hemoglobin A1c 4.4 Calcium Level 9.0 Troponin I < 0.012 Urine Color YELLOW Urine Clarity TURBID Urine pH 8.5 Urine Specific [place] 1.025 Urine Ketones NEGATIVE Urine Nitrite NEGATIVE Urine Bilirubin NEGATIVE Urine Urobilinogen 0.2 E.U./dL Urine Leukocyte Esterase 4+ Urine Microscopic WBC >200 Urine Bacteria MANY A Urine Hemoglobin 1+ Urine Glucose NEGATIVE Urine Total Protein 4+ Urine Opiates Screen Urine Barbiturates Urine Amphetamines Screen Urine Benzodiazepines Screen Urine Cocaine Screen Urine Cannabinoids Total Bilirubin 0.0 L Direct Bilirubin 0.00 Indirect Bilirubin 0.0 Aspartate Amino Transf (AST/SGOT) 49 H Alanine Aminotransferase (ALT/SGPT) 13 Alkaline Phosphatase 150 H Total Protein 7.4 Albumin 3.5 Lipase 71 Bedside Glucose 90 Medications Medications Current Medications Amlodipine Besylate (Norvasc) 2.5 mg DAILY PO ; Start 01/13/17 at 09:00 Aspirin (Aspirin) 162 mg DAILY PO ; Start 01/13/17 at 09:00 Atorvastatin Calcium (Lipitor) 80 mg QHS PO ; Start 01/12/17 at 21:00 Hydralazine HCl (Apresoline) 50 mg TID PO Last administered on 01/12/17t 14:33; Admin Dose 50 MG; Start 01/12/17 at 13:00 Metoclopramide HCl (Reglan) 5 mg BID PO ; Start 01/12/17 at 21:00 Metoprolol Tartrate (Lopressor) 100 mg BID PO ; Start 01/12/17 at 21:00 Pantoprazole (Protonix Tab) 40 mg DAILY@06 PO ; Start 01/13/17 at 06:00 Sertraline HCl (Zoloft) 50 mg DAILY PO ; Start 01/13/17 at 09:00 Tolterodine Tartrate (Detrol) 2 mg BID PO ; Start 01/12/17 at 21:00 Diagnostic Test (Pha) (Accu-Chek) 1 ea 02 XX ; Start 01/13/17 at 02:00 Warfarin Sodium (Coumadin) 5 mg DAILY@17 PO ; Start 01/12/17 at 17:00 Miscellaneous Information 1 ea NOTE XX ; Start 01/12/17 at 13:00 Glucose (Glutose) 15 gm Q15M PRN PO DECREASED GLUCOSE; Start 01/12/17 at 13:00 Glucose (Glutose) 22.5 gm Q15M PRN PO DECREASED GLUCOSE; Start 01/12/17 at 13:00 Dextrose (D50w Syringe) 25 ml Q15M PRN IV DECREASED GLUCOSE; Start 01/12/17 at 13:00 Dextrose (D50w Syringe) 50 ml Q15M PRN IV DECREASED GLUCOSE; Start 01/12/17 at 13:00 Glucagon (Glucagen) 1 mg Q15M PRN IM DECREASED GLUCOSE; Start 01/12/17 at 13:00 Glucose (Glutose) 15 gm Q15M PRN BUCCAL DECREASED GLUCOSE; Start 01/12/17 at 13: 00 Morphine Sulfate (morphine) 2 mg Q6 PRN IV pain; Start 01/12/17 at 16:00 ADALID LEO NP Jan 12, 2017 18:30
--- NOTE | 2017-01-12 19:37 | RADRPT ---
PROCEDURE: CT THORACIC SPINE WITHOUT CONTRAST: CLINICAL INDICATION: 51 years of age, female , evaluate for potential infection. Pain. COMPARISON: CT abdomen pelvis from the same day TECHNIQUE: CT of the thoracic spine was performed without intravenous contrast. Coronal and sagittal reformatted images were obtained from the axial source images. Images were reviewed on a high-resol [employer] PACS workstation. Dose information: The estimated radiation dose (CTDIvol mGy for each series in this exam is 41.4. Th e estimated cumulative dose (DLP mGy-cm is 1515. One or more of the following dose reduction techniques were used: - Automated exposure control. - Adjustment of the mA and/or kV according to patient size. - Use of iterative reconstruction technique. FINDINGS: There are 12 rib-bearing thoracic vertebra. Thoracic spine is imaged from C7-L1. Status post posterior instrumented fusion with pedicle screws and rods from T5-T10. The pedicle scre ws are on the left at all vertebral levels and on the right at T5, T6, T9 and T10. Orthopedic hardwa re is intact. The right pedicle screw at T9 extends medial to the right pedicle resulting in mild sp inal canal stenosis. There is bony destruction of the endplates at T7-8 in keeping with spondylodiskitis. Posterior heigh t loss measures approximately 30%. There is destruction of the right T7 and T8 pedicles and lamina. There is a mild right spondylolisthesis at this level. Alignment in the sagittal plane is preserved. There is soft tissue swelling in the posterior paravertebral mediastinum greatest at T7-8. The infl ammatory phlegmon contacts the descending aorta (4/65). Negative for internal bubbles of gas. Evalua tion for an epidural abscess is limited with CT. There is epidural soft tissue at this level resulti ng in a degree of central canal stenosis. There is soft tissue swelling in the posterior paravertebr al musculature without internal bubbles of gas. There are multilevel degenerative changes in the remainder of the thoracic spine. No other destructi ve bone lesions are identified para Visualized chest and abdomen: There is a central venous line in the inferior SVC. Bilateral dependen t atelectasis and mild bronchiolitis in the right lower lobe. Additional comment: None. IMPRESSION: Status post PSIF from T5-T10 with pedicle screws and rods. There is endplate destruction at the T7-8 disc level in keeping with spondylodiskitis and osteomyelitis. There is also destruction of the rig ht pedicles and lamina at these levels also concerning for osteomyelitis. There is an inflammatory p hlegmon in the posterior paravertebral mediastinum contacting the descending aorta and there is an i nflammatory phlegmon in the epidural space resulting in a degree of spinal canal stenosis. Without i ntravenous contrast, the study does not evaluate for rim enhancement and cannot distinguish phlegmon from abscess. Negative for internal bubbles of gas. There is nonspecific soft tissue swelling in th e posterior paravertebral musculature. Right pedicle screw at T9 extends medial to the right pedicle resulting in mild spinal canal stenosi s. RPTAT: HCTS Physician Amy Date Time Electronically viewed and signed by Physician Amy on 01/12/2017 19:37 /
[2017-01-12] MEDS: morphine 2 MG INJ IV PRN (20:28)
[2017-01-12 20:34] VITALS: BP 178/81; PULSE 78; RESP 16
--- NOTE | 2017-01-12 21:29 | CONS ---
Date/Time of Note Date/Time of Note DATE: 01/12/17 TIME: 21:28 Assessment/Plan Assessment/Plan Chief Complaint/Hosp Course 1. Slurred speech. rule out cerebrovascular accident, possible transient ischemic attack. F/U with neurology permissive HTN for now. echo recently done 2. End-stage renal disease. HD as per renal 3. Hypertension. Continue current blood pressure regimen. 4. History of chronic obstructive pulmonary disease. Continue medical management. 5. History of P afib. currently in NSR. CONT coumadin and adjust INR daily. 6. History of T7 paraplegia. Continue physical therapy. 7. Anemia. defer to IM 8. Mineral bone disorder. We will monitor calcium and phosphorus levels. 9. Dyslipidemia. Continue statin therapy. 10. Diabetes. Continue Accu-Cheks and insulin sliding scale. Thank you for this referral I will continue to follow along with you. TAMERA BAILEY MD [facility] Problems: Consultation Date/Type/Reason Admit Date/Time Jan 12, 2017 at 10:35 Date of Consultation: Jan 12, 2017 Type of Consultation: CARDIOLOGY Reason for Consultation PAFIB. CVA Referring Provider: SAM SEALS DO Hx of Present Illness CC: slurred speech HPI: Dear Dr. Seals thank you for his referral. History was obtained from the patient were extensive review of the old chart discussion with the staff and physicians. This is a 51-year-old female with history of proximal atrial fibrillation history of CVA in the past who was admitted with a slurred speech. Patient denies any chest pain or pressure to me denies any palpitation to me. Rhythm history was reviewed so far she has remained in sinus rhythm. PAST MEDICAL HISTORY: History of atrial fibrillation, history of CVA about 2 years ago. Review of the old Cardiology notes, the patient has had a cardioembolic stroke. The patient has a history of diabetes with diabetic nephropathy, dyslipidemia, hypertension. Recently the patient was admitted to [facility] for fever, back pain, weakness, lower extremity numbness, paresthesia. At the time was found to have discitis, osteomyelitis at T7-T8. Had local drainage of an abscess,, laminectomy due to osteomyelitis. The patient's course was also complicated with pneumonia, eventually intubated, went into renal failure. Has been on dialysis. The patient also noted to have DVT at the time. pt with history of hypertension, diabetes, CVA, COPD, osteomyelitis as above mentioned. History of T7 paraplegia, cognitive decline, history of narcotic dependence, panic and anxiety disorder. PAST SURGICAL HISTORY: Noted for thoracic spine laminectomy, epidural abscess drainage, Permacath placement on the right side. FAMILY HISTORY: No reported coronary artery disease. SOCIAL HISTORY: The patient has smoked in the past and then drug + hx of marijuana. MEDICATION: Medical reconciliation was personally reviewed. ROS as above. Past Surgical History Past Surgical Hx: no surgical history Social History Smoking Status: Never smoker Exam/Review of Systems Vital Signs Vitals Vital Signs Date Time Temp Pulse Resp B/P Pulse Ox O2 Delivery O2 Flow Rate FiO2 01/12/17 20:34 98.9 78 16 178/81 94 Room Air 01/12/17 10:27 2 Exam General: no acute distress HEENT: NC/AT. pupils are equal. round. NECK: NO JVD. no stridor. CV: RRR. systolic murmur; no gallop or rubs. PULM: no wheezing or rhonchi. GI: SOFT, NT, ND, no rebound or guarding Extremity: trace B/L LE edema. no clubbing. neuro: awake and alert, + slurred speech and left sided weakness. Psych: calm and pleasant rectal: deferred : normal ECG NSR. Results Result Diagram: 01/12/1730 01/12/17 0930 Results 24 hrs Laboratory Tests Test 01/12/17 09:30 01/12/17 09:43 01/12/17 09:50 01/12/17 13:05 White Blood Count 9.0 Red Blood Count 3.56 #L Hemoglobin 10.5 #L Hematocrit 33.3 #L Mean Corpuscular Volume 93.5 Mean Corpuscular Hemoglobin 29.5 Mean Corpuscular Hemoglobin Concent 31.5 L Red Cell Distribution Width 14.3 Platelet Count 293 # Mean Platelet Volume 8.1 Neutrophils % 61.7 Lymphocytes % 25.6 Monocytes % 6.1 Eosinophils % 5.6 Basophils % 0.7 Nucleated Red Blood Cells % 0.0 Neutrophils # (Manual) 5.6 Lymphocytes # 2.3 Monocytes # 0.6 Eosinophils # 0.5 Basophils # 0.1 Nucleated Red Blood Cells # 0.0 Prothrombin Time 22.1 #H Prothrombin Time Ratio 1.7 INR International Normalized Ratio 1.91 Activated Partial Thromboplast Time 45.4 H Sodium Level 131 L Potassium Level 4.6 Chloride Level 98 Carbon Dioxide Level 25 Anion Gap 13 Blood Urea Nitrogen 39 H Creatinine 4.25 H Glucose Level 110 Hemoglobin A1c 4.4 Calcium Level 9.0 Troponin I < 0.012 Urine Color YELLOW Urine Clarity TURBID Urine pH 8.5 Urine Specific [place] 1.025 Urine Ketones NEGATIVE Urine Nitrite NEGATIVE Urine Bilirubin NEGATIVE Urine Urobilinogen 0.2 E.U./dL Urine Leukocyte Esterase 4+ Urine Microscopic WBC >200 Urine Bacteria MANY A Urine Hemoglobin 1+ Urine Glucose NEGATIVE Urine Total Protein 4+ Urine Opiates Screen Urine Barbiturates Urine Amphetamines Screen Urine Benzodiazepines Screen Urine Cocaine Screen Urine Cannabinoids Total Bilirubin 0.0 L Direct Bilirubin 0.00 Indirect Bilirubin 0.0 Aspartate Amino Transf (AST/SGOT) 49 H Alanine Aminotransferase (ALT/SGPT) 13 Alkaline Phosphatase 150 H Total Protein 7.4 Albumin 3.5 Lipase 71 Bedside Glucose 90 Test 01/12/17 20:24 Bedside Glucose 92 Medications Medications Current Medications Amlodipine Besylate (Norvasc) 2.5 mg DAILY PO ; Start 01/13/17 at 09:00 Aspirin (Aspirin) 162 mg DAILY PO ; Start 01/13/17 at 09:00 Atorvastatin Calcium (Lipitor) 80 mg QHS PO ; Start 01/12/17 at 21:00 Hydralazine HCl (Apresoline) 50 mg TID PO Last administered on 01/12/17t 14:33; Admin Dose 50 MG; Start 01/12/17 at 13:00 Metoclopramide HCl (Reglan) 5 mg BID PO ; Start 01/12/17 at 21:00 Metoprolol Tartrate (Lopressor) 100 mg BID PO ; Start 01/12/17 at 21:00 Pantoprazole (Protonix Tab) 40 mg DAILY@06 PO ; Start 01/13/17 at 06:00 Sertraline HCl (Zoloft) 50 mg DAILY PO ; Start 01/13/17 at 09:00 Tolterodine Tartrate (Detrol) 2 mg BID PO ; Start 01/12/17 at 21:00 Diagnostic Test (Pha) (Accu-Chek) 1 ea 02 XX ; Start 01/13/17 at 02:00 Warfarin Sodium (Coumadin) 5 mg DAILY@17 PO ; Start 9/5/17 at 17:00 Miscellaneous Information 1 ea NOTE XX ; Start 01/12/17 at 13:00 Glucose (Glutose) 15 gm Q15M PRN PO DECREASED GLUCOSE; Start 01/12/17 at 13:00 Glucose (Glutose) 22.5 gm Q15M PRN PO DECREASED GLUCOSE; Start 01/12/17 at 13:00 Dextrose (D50w Syringe) 25 ml Q15M PRN IV DECREASED GLUCOSE; Start 01/12/17 at 13:00 Dextrose (D50w Syringe) 50 ml Q15M PRN IV DECREASED GLUCOSE; Start 01/12/17 at 13:00 Glucagon (Glucagen) 1 mg Q15M PRN IM DECREASED GLUCOSE; Start 01/12/17 at 13:00 Glucose (Glutose) 15 gm Q15M PRN BUCCAL DECREASED GLUCOSE; Start 01/12/17 at 13: 00 Morphine Sulfate (morphine) 2 mg Q6 PRN IV pain Last administered on 01/12/17t 20:28; Admin Dose 2 MG; Start 01/12/17 at 16:00 TAMERA BAILEY MD Jan 12, 2017 21:29
--- NOTE | 2017-01-12 21:49 | CONS ---
DATE OF ADMISSION: 01/12/2017 DATE OF CONSULTATION: 01/12/2017 NEUROLOGICAL CONSULTATION: REASON FOR CONSULTATION: Thank you, Dr. Seals, for the kind referral for evaluation of possible stroke. HISTORY OF PRESENT ILLNESS: The patient is a 51-year-old lady with end-stage renal disease, diabetes, diabetic nephropathy, diabetic neuropathy, coronary artery disease, dyslipidemia, hypertension, as well as history of thoracic spinal surgery she said that was done in September of this year in [facility], according to primary note was secondary to epidural abscess, though patient states that she had some sort of malignant tumor. Patient claimed that 3 days ago, she developed slurred speech, which is slightly better today but still present. Denies any weakness in the upper or lower extremities. PAST MEDICAL HISTORY: As above. Also was recently diagnosed with shingles and started on Valtrex. SOCIAL HISTORY: No alcohol, tobacco, or drug use. FAMILY HISTORY: Noncontributory. MEDICATION: Prior to admission: 1. Benadryl. 2. Robaxin. 3. Norvasc. 4. Atorvastatin. 5. Hydralazine. 6. 7. Metoprolol. 8. Gabapentin. 9. Dilaudid. 10. OxyContin. 11. Zoloft. 12. Renagel. 13. Bisacodyl. 14. Colace. 15. Pantoprazole. 16. MiraLax. 17. Vitamin B complex. Currently she is gettin. Amlodipine. 19. Aspirin 162. 20. Zoloft. 21. Protonix. 22. Lipitor 80. 23. Reglan. 24. Lopressor. 25. Detrol. 26. Coumadin 5 mg. 27. Renagel. 28. Prandin. ALLERGIES: SHE IS ALLERGIC TO CODEINE. REVIEW OF SYSTEMS: She denied any swallowing difficulties. She has no headache. Chronic since thoracic surgery weakness in the legs at baseline. LABORATORY DATA: Her labs show hemoglobin 10, hematocrit 33, normal WBCs and platelets. Chemistry, 131 sodium, BUN 39, creatinine 4.25, AST 49, alkaline phosphate 150. PT 21, PTT of 45. Urinalysis, WBC more than 200 and leukocyte esterase 4 plus. Tox screen not available. PHYSICAL EXAMINATION: VITAL SIGNS: Today, vitals 98.5 temperature, 20 respiration, blood pressure 183/86, pulse 74. GENERAL APPEARANCE: Not in acute distress lying in bed. HEENT: Normocephalic atraumatic head. No carotid bruits. No thyromegaly. LUNGS: Clear to auscultation bilaterally. HEART: Normal cardiac rhythm and sounds. ABDOMEN: Soft, nontender. EXTREMITIES: No cyanosis, clubbing, or edema. NEUROLOGIC: She is awake, alert, and oriented x2 with fluent speech. Cranial nerve examination is intact visual vargas bilaterally, pupils reactive from 3-2 mm bilaterally. Extraocular movements intact without nystagmus. Symmetrical face. Preserved facial strength and sensation. Tongue was in midline. Palate elevates symmetrically. Motor strength examination seemed to be preserved in upper extremities. Some give way, but at least 4+ out of 5. Lower extremities are weaker about 3/5, especially proximally. Deep tendon reflexes 2+ upper extremities, right knee jerk and bilateral ankle jerks, absent left knee jerk. No response to plantar stimulation bilaterally. Sensory examination is somewhat limited. The patient gives not very consistent answers but she claims to mostly feel upper and lower extremities almost symmetrically. At times she feels less in lower extremities, but no definite glove stocking distribution of numbness or sensory level. Coordination preserved on [id number] testing. No dysmetria or tremor. Gait was not assessed. DIAGNOSTIC DATA: CAT scan of the head was done, did show any acute abnormality, with old left basal gangliar infarct. CAT scan of the thoracic spine was done showing status post T5-T10 fusion with changes concerning for osteomyelitis. There is an inflammatory phlegmon in the posterior paravertebral mediastinum contacting the descending aorta and inflammatory phlegmon in the epidural space. IMPRESSION AND PLAN: 1. New onset of slurred speech, possibly cerebrovascular accident given risk factors. Continue aspirin and high dose Lipitor. Keep patient normotensive and euglycemic. Will obtain MRI of the brain.The patient is on anticoagulation for atrial fibrillation. 2. History of T7 lower paraparesis secondary to osteomyelitis according to the chart. Surgery was done in September. The patient was in the hospital in rehab in December. The patient is known to ID service and ID service was reconsulted requesting possible biopsy of the thoracic phlegmon, if it is osteomyelitis. 3. She has end-stage renal disease, on hemodialysis. Thank you much for sending us the consultation. I do not know if the patient's abnormality of the CAT scan could reflect the presence of chronic changes and if any surgical intervention should be done, but neurosurgical evaluation is needed. Dictated By: Tanner Jauregui MD /saul/lexx /Document#: [id number]
[2017-01-12 22:04] VITALS: PULSE 87
[2017-01-12] MEDS: WARFARIN 5 MG TAB PO SCH (22:15)
[2017-01-12] MEDS: TOLTERODINE 2 MG TAB PO SCH (22:16)
[2017-01-12] MEDS: METOPROLOL 100 MG TAB PO SCH (22:16)
[2017-01-12] MEDS: METOCLOPRAMIDE 5 MG TAB PO SCH (22:16)
[2017-01-12] MEDS: ATORVASTATIN 80 MG TAB PO SCH (22:16)
[2017-01-12 23:50] VITALS: BP 168/80; PULSE 73; RESP 16
[2017-01-13] VITALS (16 sets, daily range): BP systolic 119–173; BP diastolic 54–81; PULSE 65–83; RESP 15–18
[2017-01-13] MEDS: ACCU-CHEK XX SCH (03:30)
[2017-01-13] MEDS: DEXTROSE 50% 50 ML SYRINGE IV PRN (04:53)
[2017-01-13] MEDS: PANTOPRAZOLE (EC) 40 MG TAB PO SCH (06:04)
[2017-01-13] MEDS: morphine 2 MG INJ IV PRN ×2 (06:05→21:45)
[2017-01-13] MEDS: REPAGLINIDE 1 MG TAB PO SCH ×3 (06:05→19:49)
[2017-01-13 06:10] LABS: BASOPHIL # 0.1 10^3/ul (0.0-0.1); BASOPHILS % 0.6 % (0.0-2.0); EOSINOPHILS # 0.5 10^3/ul (0.0-0.5); EOSINOPHILS % 5.6 % (0.0-7.0); HEMATOCRIT 29.9 % (37.0-47.0); HEMOGLOBIN 9.3 g/dl (12.0-16.0); LYMPHOCYTES # 2.2 10^3/ul (0.8-2.9); LYMPHOCYTES % 25.1 % (15.0-51.0); MEAN CORPUSCULAR HGB CONC 31.1 g/dl (32.0-37.0); MEAN CORPUSCULAR VOLUME 93.1 fl (82.0-101.0); MEAN PLATELET VOLUME 8.2 fl (7.4-10.4); MONOCYTE # 0.6 10^3/ul (0.3-0.9); MONOCYTES % 6.4 % (0.0-11.0); PLATELET COUNT 272 10^3/UL (140-415); RED BLOOD COUNT 3.21 10^6/ul (4.20-5.40); RED CELL DISTRIBUTION WIDTH 14.2 % (11.5-14.5); WHITE BLOOD COUNT 8.7 10^3/ul (4.8-10.8)
[2017-01-13 06:32] LABS: INR 2.25; PROTIME 25.1 Sec (12.2-14.2)
[2017-01-13 06:42] LABS: CALCIUM 8.6 mg/dl (8.4-10.2); CREATININE 4.41 mg/dl (0.44-1.00); MAGNESIUM 2.1 mg/dl (1.7-2.5); PHOSPHORUS 5.4 mg/dl (2.5-4.9); POTASSIUM 3.8 mmol/L (3.5-5.1)
[2017-01-13 06:43] LABS: CHOL/HDL RATIO 2.2 RATIO
[2017-01-13] MEDS: SEVELAMER 800 MG TAB PO SCH ×3 (07:35→19:49)
[2017-01-13] MEDS: INSULIN ASPART [NOVOLOG] 3 ML PEN SC SCH ×4 (07:35→20:55)
[2017-01-13] MEDS: METOPROLOL 100 MG TAB PO SCH ×2 (09:00→21:47)
--- NOTE | 2017-01-13 09:01 | CONS ---
Date/Time of Note Date/Time of Note DATE: 01/13/17 TIME: 08:59 Consult Date/Type/Reason Admit Date/Time Jan 12, 2017 at 10:35 Initial Consult Date 01/12/17 Type of Consultation: CARDIOLOGY Ordering Provider: SAM CANTU DO Subjective CARDIOLOGY FOLLOW UP NOTE: Discussed with and staff. Rhythm strip was reviewed. Patient remained in sinus rhythm with no evidence of atrial fibrillation overnight. Her slurred speech has improved. Denies any chest pain or pressure or palpitation to me. objective: General: no acute distress HEENT: NC/AT. pupils are equal. round. NECK: NO JVD. no stridor. CV: RRR. systolic murmur; no gallop or rubs. PULM: no wheezing or rhonchi. GI: SOFT, NT, ND, no rebound or guarding Extremity: trace B/L LE edema. no clubbing. neuro: awake and alert, improved slurred speech Psych: calm and pleasant rectal: deferred : normal ECG NSR. Objective Vital Signs Date Time Temp Pulse Resp B/P Pulse Ox O2 Delivery O2 Flow Rate FiO2 01/13/17 08:00 65 01/13/17 05:45 99.0 18 173/79 93 Room Air 01/12/17 10:27 2 Results/Medications Result Diagram: 01/13/17 0438 01/13/17 0438 Results 24 hrs Laboratory Tests Test 01/12/17 09:30 01/12/17 09:43 01/12/17 09:50 01/12/17 13:05 White Blood Count 9.0 Red Blood Count 3.56 #L Hemoglobin 10.5 #L Hematocrit 33.3 #L Mean Corpuscular Volume 93.5 Mean Corpuscular Hemoglobin 29.5 Mean Corpuscular Hemoglobin Concent 31.5 L Red Cell Distribution Width 14.3 Platelet Count 293 # Mean Platelet Volume 8.1 Neutrophils % 61.7 Lymphocytes % 25.6 Monocytes % 6.1 Eosinophils % 5.6 Basophils % 0.7 Nucleated Red Blood Cells % 0.0 Neutrophils # (Manual) 5.6 Lymphocytes # 2.3 Monocytes # 0.6 Eosinophils # 0.5 Basophils # 0.1 Nucleated Red Blood Cells # 0.0 Prothrombin Time 22.1 #H Prothrombin Time Ratio 1.7 INR International Normalized Ratio 1.91 Activated Partial Thromboplast Time 45.4 H Sodium Level 131 L Potassium Level 4.6 Chloride Level 98 Carbon Dioxide Level 25 Anion Gap 13 Blood Urea Nitrogen 39 H Creatinine 4.25 H Glucose Level 110 Hemoglobin A1c 4.4 Calcium Level 9.0 Troponin I < 0.012 Urine Color YELLOW Urine Clarity TURBID Urine pH 8.5 Urine Specific [place] 1.025 Urine Ketones NEGATIVE Urine Nitrite NEGATIVE Urine Bilirubin NEGATIVE Urine Urobilinogen 0.2 E.U./dL Urine Leukocyte Esterase 4+ Urine Microscopic WBC >200 Urine Bacteria MANY A Urine Hemoglobin 1+ Urine Glucose NEGATIVE Urine Total Protein 4+ Urine Opiates Screen Urine Barbiturates Urine Amphetamines Screen Urine Benzodiazepines Screen Urine Cocaine Screen Urine Cannabinoids Total Bilirubin 0.0 L Direct Bilirubin 0.00 Indirect Bilirubin 0.0 Aspartate Amino Transf (AST/SGOT) 49 H Alanine Aminotransferase (ALT/SGPT) 13 Alkaline Phosphatase 150 H Total Protein 7.4 Albumin 3.5 Lipase 71 Bedside Glucose 90 Test 01/12/17 20:24 01/13/17 04:05 01/13/17 04:38 Bedside Glucose 92 66 L White Blood Count 8.7 Red Blood Count 3.21 L Hemoglobin 9.3 L Hematocrit 29.9 L Mean Corpuscular Volume 93.1 Mean Corpuscular Hemoglobin 29.0 Mean Corpuscular Hemoglobin Concent 31.1 L Red Cell Distribution Width 14.2 Platelet Count 272 Mean Platelet Volume 8.2 Neutrophils % 62.0 Lymphocytes % 25.1 Monocytes % 6.4 Eosinophils % 5.6 Basophils % 0.6 Nucleated Red Blood Cells % 0.0 Neutrophils # (Manual) 5.4 Lymphocytes # 2.2 Monocytes # 0.6 Eosinophils # 0.5 Basophils # 0.1 Nucleated Red Blood Cells # 0.0 Prothrombin Time 25.1 H Prothrombin Time Ratio 2.0 INR International Normalized Ratio 2.25 Sodium Level 135 Potassium Level 3.8 Chloride Level 102 Carbon Dioxide Level 26 Anion Gap 11 Blood Urea Nitrogen 40 H Creatinine 4.41 H Glucose Level 60 #L Calcium Level 8.6 Phosphorus Level 5.4 H Magnesium Level 2.1 Triglycerides Level 118 Cholesterol Level 127 LDL Cholesterol, Calculated 46 HDL Cholesterol 57 Cholesterol/HDL Ratio 2.2 Medications Current Medications Amlodipine Besylate (Norvasc) 2.5 mg DAILY PO ; Start 01/13/17 at 09:00 Aspirin (Aspirin) 162 mg DAILY PO ; Start 01/13/17 at 09:00 Atorvastatin Calcium (Lipitor) 80 mg QHS PO Last administered on 01/12/17 22:16 ; Admin Dose 80 MG; Start 01/12/17 at 21:00 Hydralazine HCl (Apresoline) 50 mg TID PO Last administered on 01/12/17 22:16; Admin Dose 50 MG; Start 01/12/17 at 13:00 Metoclopramide HCl (Reglan) 5 mg BID PO Last administered on 01/12/17 22:16; Admin Dose 5 MG; Start 01/12/17 at 21:00 Metoprolol Tartrate (Lopressor) 100 mg BID PO Last administered on 01/12/17 22: 16; Admin Dose 100 MG; Start 01/12/17 at 21:00 Pantoprazole (Protonix Tab) 40 mg DAILY@06 PO Last administered on 01/13/17 06: 04; Admin Dose 40 MG; Start 01/13/17 at 06:00 Sertraline HCl (Zoloft) 50 mg DAILY PO ; Start 01/13/17 at 09:00 Tolterodine Tartrate (Detrol) 2 mg BID PO Last administered on 01/12/17 22:16; Admin Dose 2 MG; Start 01/12/17 at 21:00 Diagnostic Test (Pha) (Accu-Chek) 1 ea 02 XX ; Start 01/13/17 at 02:00 Warfarin Sodium (Coumadin) 5 mg DAILY@17 PO Last administered on 01/12/17 22:15 ; Admin Dose 5 MG; Start 01/12/17 at 17:00 Miscellaneous Information 1 ea NOTE XX ; Start 01/12/17 at 13:00 Glucose (Glutose) 15 gm Q15M PRN PO DECREASED GLUCOSE; Start 01/12/17 at 13:00 Glucose (Glutose) 22.5 gm Q15M PRN PO DECREASED GLUCOSE; Start 01/12/17 at 13:00 Dextrose (D50w Syringe) 25 ml Q15M PRN IV DECREASED GLUCOSE Last administered on 01/13/17 04:53; Admin Dose 25 ML; Start 01/12/17 at 13:00 Dextrose (D50w Syringe) 50 ml Q15M PRN IV DECREASED GLUCOSE; Start 01/12/17 at 13:00 Glucagon (Glucagen) 1 mg Q15M PRN IM DECREASED GLUCOSE; Start 01/12/17 at 13:00 Glucose (Glutose) 15 gm Q15M PRN BUCCAL DECREASED GLUCOSE; Start 01/12/17 at 13: 00 Morphine Sulfate (morphine) 2 mg Q6 PRN IV pain Last administered on 01/13/17t 06:05; Admin Dose 2 MG; Start 01/12/17 at 16:00 Assessment/Plan Chief Complaint/Hosp Course 1. Slurred speech. rule out cerebrovascular accident, possible transient ischemic attack. F/U with neurology rec permissive HTN for now until CVA is ruled out. echo recently done 2. End-stage renal disease. HD as per renal 3. Hypertension. Continue current blood pressure regimen. 4. History of chronic obstructive pulmonary disease. Continue medical management. 5. History of P afib. currently in NSR. CONT coumadin and adjust INR daily. INR is therapeutic today 6. History of T7 paraplegia. Continue physical therapy. 7. Anemia. defer to IM 8. Mineral bone disorder. We will monitor calcium and phosphorus levels. 9. Dyslipidemia. Continue statin therapy. 10. Diabetes. Continue Accu-Cheks and insulin sliding scale. Thank you for this referral I will continue to follow along with you. TAMERA BAILEY MD [facility] Problems: TAMERA BAILEY MD Jan 13, 2017 09:01
[2017-01-13] MEDS: ASPIRIN 81 MG TAB PO SCH (10:18)
[2017-01-13] MEDS: TOLTERODINE 2 MG TAB PO SCH ×2 (10:19→23:36)
[2017-01-13] MEDS: AMLODIPINE 2.5 MG TAB PO SCH (10:20)
[2017-01-13] MEDS: SERTRALINE 50 MG TAB PO SCH (10:21)
[2017-01-13] MEDS: METOCLOPRAMIDE 5 MG TAB PO SCH ×2 (10:22→21:45)
--- NOTE | 2017-01-13 14:22 | CONS ---
Date/Time of Note Date/Time of Note DATE: 01/13/17 TIME: 14:06 Assessment/Plan Assessment/Plan Additional Assessment/Plan impression 1. Possible CVA/ TIA , CT brain on arrival negative for bleed. ASA given by ED Pt appears to be at her 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 baseline 2. Recent T5-10 Posterior fixation using Rods/Screws secondary to infection at [place] (10/05/2016) , pt does not recall her Surgeon. Pt states she was unable to walk prior to surgery and now requires 2 person max assist with FWW CT abd/thoracic spine showed possible T7-8 and L5-S1 osteo/diskitis ,unable to fully evaluate on current images, no MRI done yet. Plan Consider Neurology eval per Primary Team's choice MRI Brain/Cervical/thoracic / Lumbar Will need ID eval if Osteo/Diskitis proven Discussed plan with pt and family at bedside. Consultation Date/Type/Reason Admit Date/Time Jan 12, 2017 at 10:35 Hx of Present Illness 52 y/o female with history DM, ESRD, CAD, CVA, and recently started on Valtrex for Shingles. Per history, pt admitted for possible CVA/TIA and given ASA in ED. CT brain on arrival showed no acute bleed. CT abd/thoracic spine showed known previous T5-10 posterior rods/screws per pt done 10/05/2016 at [place] for infection and had 2 weeks iv antibiotics post op. Called to evaluate regarding possible T/L spine osteo/diskitis and possible SI joint infection noted as well. Pt with worsening back pain and some recent chills but no fever. Pt requires max assistance with FWW since surgery. pmh/psx: per hpi/chart meds: see med recon ros: per hpi/chart Past Surgical History Past Surgical Hx: no surgical history Social History Smoking Status: Never smoker Exam/Review of Systems Vital Signs Vitals Vital Signs Date Time Temp Pulse Resp B/P Pulse Ox O2 Delivery O2 Flow Rate FiO2 01/13/17 12:00 83 01/13/17 10:35 98.7 15 172/81 96 Room Air 01/12/17 10:27 2 Exam Constitutional: alert Psych: no complaints Head: normocephalic 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: other (MS: Awake, alert, oriented x 4. Pt states that her speech is currently at baseline CN: PERRL , fS , TML M: FC x 4 , no new focal def.noted. ) Additional Comments PROCEDURE: CT ABDOMEN AND PELVIS WITHOUT CONTRAST: CLINICAL INDICATION: 51 years of age, female , left lower quadrant abdominal pain. COMPARISON: CT chest July 15, 2015 TECHNIQUE: CT of the abdomen and pelvis was performed without intravenous contrast. Oral contrast was not administered prior to the examination. Coronal and sagittal reformatted images were obtained from the axial source images. Images were reviewed on a high-resolution PACS workstation. Dose information: Based on a 32 cm phantom, the estimated radiation dose ( CTDIvol mGy) for each series in this exam is 19.6. The estimated cumulative dose (DLP mGy-cm) is 1124. One or more of the following dose reduction techniques were used: - Automated exposure control. - Adjustment of the mA and/or kV according to patient size. - Use of iterative reconstruction technique. FINDINGS: In the absence of intravenous contrast, the study constitutes a limited assessment of the solid organs, bowel and vessels. LUNG BASES: Mild nodularity with centrilobular branching structures lateral right middle lobe and posterior right lower lobe is in keeping with mild bronchiolitis. Bilateral dependent atelectasis.. ABDOMEN/PELVIS: Liver: Normal noncontrast appearance. Gallbladder: Cholelithiasis without evidence of acute cholecystitis. Bile ducts: No intrahepatic or extrahepatic biliary duct dilatation. Spleen: Normal noncontrast appearance. Pancreas: Normal noncontrast appearance. Adrenal glands: Normal noncontrast appearance. Kidneys and ureters: Punctate nonobstructing calculus right kidney. Punctate nonobstructing calculus left kidney. Negative for ureteral calculi or hydronephrosis. Kidneys are normal size. There is nonspecific bilateral perinephric fat stranding. Aorta and IVC: Atherosclerotic calcification of the aortic branch vessels. Aorta has normal caliber. Lymph nodes: Normal noncontrast appearance. Gastrointestinal tract: Colonic diverticulosis greatest in sigmoid colon without diverticulitis. Bowel loops are decompressed. There is a distal duodenal diverticulum without diverticulitis. Appendix: Normal Bladder: Normal noncontrast appearance. Pelvic Organs: The uterus and adnexa are unremarkable. Peritoneal cavity: No free fluid or free intraperitoneal air. Abdominal wall: Mild diffuse body wall edema. 3 cm nodular focus of soft tissue in the subcutaneous fat posterior to the upper sacrum is nonspecific. Small fat containing umbilical hernia. BONES: Musculoskeletal: There is posterior instrumented fusion in the lower thoracic spine at T8, T9 and T10 with pedicle screws and rods that are incompletely imaged. This is new since prior chest CT. There is absence of the right pedicle and lamina at T8 that is incompletely imaged (3/1). Right T9 pedicle screw crosses the medial cortex and narrows the central spinal canal There is degenerative disc disease in the lower thoracic spine with bulky anterior osteophytes. There is mild paravertebral soft tissue swelling in the posterior mediastinum at the level of the posterior fusion. There is bony destruction of the endplates at the L5-S1 disc level with edema in the surrounding fat concerning for diskitis and osteomyelitis. There is also presacral edema. There is a focal erosion at the left anterior superior endplate of L4 that may represent the same process (601/55). There is erosive arthritis of the right sacroiliac joint also concerning for septic arthritis. Left sacroiliac joint is unremarkable. 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 Suggest diagnostic disk aspiration. There is bony erosion of the left anterior superior endplate of L4 that may also be infectious. Erosive arthritis of the right sacroiliac joint is concerning for septic arthritis. Status post PSIF in the lower thoracic spine at T8, T9 and T10 that is incompletely imaged. This is new since prior chest CT. There is absence of the right pedicle and lamina at T8 and there is paravertebral soft tissue swelling in the posterior mediastinum. Suggest correlation with previous imaging and surgical history and/or dedicated CT of the thoracic spine. Nodular soft tissue density in the subcutaneous fat posterior to the upper sacrum is nonspecific. Correlate clinically for signs of hematoma or soft tissue infection. Colonic diverticulosis without diverticulitis. Cholelithiasis without evidence of acute cholecystitis or biliary obstruction. Mild bronchiolitis in right middle lobe and right lower lobe may be infectious or inflammatory. Critical results were discussed with Jessenia Sales RN on the patient's floor by Dr. Phoebe Carvajal on January 12, 2017 at 4:55 PM. [place] [id number] Radiology Main Line: [phone] DIAGNOSTIC IMAGING REPORT Patient: AC MOFFETT : 1965 Age: 51 Sex: F [id number] DOS: 01/12/17 0000 Ordering MD: SAM CANTU DO [place] [facility] [place]Bed: 3306-A PROCEDURE: CT THORACIC SPINE WITHOUT CONTRAST: CLINICAL INDICATION: 51 years of age, female , evaluate for potential infection. Pain. COMPARISON: CT abdomen pelvis from the same day TECHNIQUE: CT of the thoracic spine was performed without intravenous contrast. Coronal and sagittal reformatted images were obtained from the axial source images. Images were reviewed on a high-resolution PACS workstation. Dose information: The estimated radiation dose (CTDIvol mGy for each series in this exam is 41.4. The estimated cumulative dose (DLP mGy-cm is 1515. One or more of the following dose reduction techniques were used: - Automated exposure control. - Adjustment of the mA and/or kV according to patient size. - Use of iterative reconstruction technique. FINDINGS: There are 12 rib-bearing thoracic vertebra. Thoracic spine is imaged from C7-L1. Status post posterior instrumented fusion with pedicle screws and rods from T5- T10. The pedicle screws are on the left at all vertebral levels and on the right at T5, T6, T9 and T10. Orthopedic hardware is intact. The right pedicle screw at T9 extends medial to the right pedicle resulting in mild spinal canal stenosis. There is bony destruction of the endplates at T7-8 in keeping with spondylodiskitis. Posterior height loss measures approximately 30%. There is destruction of the right T7 and T8 pedicles and lamina. There is a mild right spondylolisthesis at this level. Alignment in the sagittal plane is preserved. There is soft tissue swelling in the posterior paravertebral mediastinum greatest at T7-8. The inflammatory phlegmon contacts the descending aorta () . Negative for internal bubbles of gas. Evaluation for an epidural abscess is limited with CT. There is epidural soft tissue at this level resulting in a degree of central canal stenosis. There is soft tissue swelling in the posterior paravertebral musculature without internal bubbles of gas. There are multilevel degenerative changes in the remainder of the thoracic spine. No other destructive bone lesions are identified para Visualized chest and abdomen: There is a central venous line in the inferior SVC. Bilateral dependent atelectasis and mild bronchiolitis in the right lower lobe. Additional comment: None. IMPRESSION: Status post PSIF from T5-T10 with pedicle screws and rods. There is endplate destruction at the T7-8 disc level in keeping with spondylodiskitis and osteomyelitis. There is also destruction of the right pedicles and lamina at these levels also concerning for osteomyelitis. There is an inflammatory phlegmon in the posterior paravertebral mediastinum contacting the descending aorta and there is an inflammatory phlegmon in the epidural space resulting in a degree of spinal canal stenosis. Without intravenous contrast, the study does not evaluate for rim enhancement and cannot distinguish phlegmon from abscess. Negative for internal bubbles of gas. There is nonspecific soft tissue swelling in the posterior paravertebral musculature. Right pedicle screw at T9 extends medial to the right pedicle resulting in mild spinal canal stenosis. RPTAT: HCTS Physician Amy Date Time Electronically viewed and signed by Physician Amy on 01/12/2017 19: 37 Results Result Diagram: 01/13/17 0438 01/13/17 0438 Results 24 hrs Laboratory Tests Test 01/12/17 20:24 01/13/17 04:05 01/13/17 04:38 01/13/17 10:44 Bedside Glucose 92 66 L 70 White Blood Count 8.7 Red Blood Count 3.21 L Hemoglobin 9.3 L Hematocrit 29.9 L Mean Corpuscular Volume 93.1 Mean Corpuscular Hemoglobin 29.0 Mean Corpuscular Hemoglobin Concent 31.1 L Red Cell Distribution Width 14.2 Platelet Count 272 Mean Platelet Volume 8.2 Neutrophils % 62.0 Lymphocytes % 25.1 Monocytes % 6.4 Eosinophils % 5.6 Basophils % 0.6 Nucleated Red Blood Cells % 0.0 Neutrophils # (Manual) 5.4 Lymphocytes # 2.2 Monocytes # 0.6 Eosinophils # 0.5 Basophils # 0.1 Nucleated Red Blood Cells # 0.0 Prothrombin Time 25.1 H Prothrombin Time Ratio 2.0 INR International Normalized Ratio 2.25 Sodium Level 135 Potassium Level 3.8 Chloride Level 102 Carbon Dioxide Level 26 Anion Gap 11 Blood Urea Nitrogen 40 H Creatinine 4.41 H Glucose Level 60 #L Calcium Level 8.6 Phosphorus Level 5.4 H Magnesium Level 2.1 Triglycerides Level 118 Cholesterol Level 127 LDL Cholesterol, Calculated 46 HDL Cholesterol 57 Cholesterol/HDL Ratio 2.2 Test 01/13/17 14:02 Bedside Glucose 147 Medications Medications Current Medications Amlodipine Besylate (Norvasc) 2.5 mg DAILY PO Last administered on 01/13/17 10: 20; Admin Dose 2.5 MG; Start 01/13/17 at 09:00 Aspirin (Aspirin) 162 mg DAILY PO Last administered on 01/13/17 10:18; Admin Dose 162 MG; Start 01/13/17 at 09:00 Atorvastatin Calcium (Lipitor) 80 mg QHS PO Last administered on 01/12/17 22:16 ; Admin Dose 80 MG; Start 01/12/17 at 21:00 Hydralazine HCl (Apresoline) 50 mg TID PO Last administered on 01/13/17 10:22; Admin Dose 50 MG; Start 01/12/17 at 13:00 Metoclopramide HCl (Reglan) 5 mg BID PO Last administered on 01/13/17 10:22; Admin Dose 5 MG; Start 01/12/17 at 21:00 Metoprolol Tartrate (Lopressor) 100 mg BID PO Last administered on 01/13/17 09: 00; Admin Dose 100 MG; Start 01/12/17 at 21:00 Pantoprazole (Protonix Tab) 40 mg DAILY@06 PO Last administered on 01/13/17 06: 04; Admin Dose 40 MG; Start 01/13/17 at 06:00 Sertraline HCl (Zoloft) 50 mg DAILY PO Last administered on 01/13/17 10:21; Admin Dose 50 MG; Start 01/13/17 at 09:00 Tolterodine Tartrate (Detrol) 2 mg BID PO Last administered on 01/13/17 10:19; Admin Dose 2 MG; Start 01/12/17 at 21:00 Diagnostic Test (Pha) (Accu-Chek) 1 ea 02 XX ; Start 01/13/17 at 02:00 Warfarin Sodium (Coumadin) 5 mg DAILY@17 PO Last administered on 01/12/17 22:15 ; Admin Dose 5 MG; Start 01/12/17 at 17:00 Miscellaneous Information 1 ea NOTE XX ; Start 01/12/17 at 13:00 Glucose (Glutose) 15 gm Q15M PRN PO DECREASED GLUCOSE; Start 01/12/17 at 13:00 Glucose (Glutose) 22.5 gm Q15M PRN PO DECREASED GLUCOSE; Start 01/12/17 at 13:00 Dextrose (D50w Syringe) 25 ml Q15M PRN IV DECREASED GLUCOSE Last administered on 01/13/17 04:53; Admin Dose 25 ML; Start 01/12/17 at 13:00 Dextrose (D50w Syringe) 50 ml Q15M PRN IV DECREASED GLUCOSE; Start 01/12/17 at 13:00 Glucagon (Glucagen) 1 mg Q15M PRN IM DECREASED GLUCOSE; Start 01/12/17 at 13:00 Glucose (Glutose) 15 gm Q15M PRN BUCCAL DECREASED GLUCOSE; Start 01/12/17 at 13: 00 Morphine Sulfate (morphine) 2 mg Q6 PRN IV pain Last administered on 01/13/17 06:05; Admin Dose 2 MG; Start 01/12/17 at 16:00 ELANA BORGES NP Jan 13, 2017 14:16
--- NOTE | 2017-01-13 15:10 | PN ---
DATE: 01/13/2017 INFECTIOUS DISEASE PROGRESS NOTE: SUBJECTIVE: No acute changes overnight. The patient is in hemodialysis. She is awake, looks comfortable. Denies pain. No fevers. Temperature 98.7, pulse 72, respirations 15, blood pressure 172/81, saturation 96 on room air. LABORATORY AND DIAGNOSTIC DATA: WBC 8.7, H and H are 9.3 and 29.9, platelets 272, no shift, no bands. Indwelling right chest PermCath. Microbiology, blood cultures are pending. CT abdomen and pelvis on admission revealed endplate destruction at L5-S1 disc level with edema in the surrounding fat, concerning for spondylo discitis and osteomyelitis with suggestion diagnostic disc aspiration. There is a bony erosion of the left anterior superior endplate of L4 that may also be infectious. Erosive arthritis of right sacroilial joint is concerning for septic arthritis. Colonic diverticulosis without diverticulitis. Cholelithiasis without evidence of acute cholecystitis or biliary obstruction. Mild bronchiolitis in the right middle lobe, and right lower lobe may be infectious or inflammatory. Thoracic spine MRI revealed endplate destruction at the T7-T8 disc level in keeping with spondylo discitis and osteomyelitis. Also destruction of the right pedicles at this level is also concerning for osteomyelitis. Inflammatory phlegmon in the posterior paravertebral mediastinum contacting the descending aorta and there is an inflammatory phlegmon in the epidural space resulting in a degree of spinal canal stenosis. Recommend intravenous contrast to distinguish phlegmon from abscess. Negative for internal bubbles or gas. Chest x-ray on admission revealed no acute disease. Brain CT showed no evidence of acute intracranial pathology. PHYSICAL EXAMINATION: GENERAL: This is well nourished, well developed, chronically ill- appearing, middle-aged woman who is awake, in hemodialysis and in no distress. HEENT: Head atraumatic, normocephalic. Sclerae anicteric. Buccal mucosa dry. NECK: Supple. CHEST: Rise symmetrical. Right chest PermCath site clear. Breath sounds diminished at the bases. HEART: S1, S2. ABDOMEN: Soft, bowel sounds present. EXTREMITIES: Without cyanosis. SKIN: With healed herpetic lesions over the left upper abdominal quadrant extending to the back. ASSESSMENT: 1. New onset of slurred speech with a questionable cerebrovascular accident, however CT of the brain being negative, neurology on case, pending MRI. 2. Evidence of S5, L1, and T7-T8 discitis, osteomyelitis and questionable abscess versus phlegmon as per CT abdomen as well as thoracic spine CAT scan. 3. Resolved shingles. 4. End-stage renal disease, hemodialysis dependent. 5. Coronary artery disease. 6. History of T7 paraplegia with evidence of surgical intervention as per radiographic finding. 7. Anemia. 8. Diabetes. PLAN: Patient remains clinically stable. Pending CT guided needle biopsy and possible fluid aspiration of the spinal space. We will keep off antibiotics until this is done, pending blood cultures. Neurology follows. Dictated By: Nini Velázquez NP /saul/lexx /Document#: [id number]
--- NOTE | 2017-01-13 19:20 | PN ---
DATE: 01/13/2017 SUBJECTIVE DATA: The patient this morning was noted to be stable. No acute events overnight. No fevers, chills, nausea, or vomiting. The patient is scheduled for hemodialysis. OBJECTIVE DATA: VITAL SIGNS: Blood pressure is 172/81, respirations 18, pulse 72, temperature 98.7. HEENT: Head is normocephalic. NECK: Supple. HEART: Regular rate. LUNGS: Diminished breath sounds at the base. ABDOMEN: Soft, nontender to palpation. No rebound or guarding. EXTREMITIES: Negative for clubbing, cyanosis, and edema. DERMATOLOGIC: Noted dry papular rash on back. NEUROLOGIC: Limited exam. The patient has noted weakness. No change. Lower extremity weakness, 3/5. MEDICATION: Reviewed. LABORATORY AND DIAGNOSTIC DATA: White count 8.7, hemoglobin 9.3, hematocrit 29.9, platelet count 272. Sodium 135, potassium 3.8, chloride 102, BUN 40, creatinine 4.41. ASSESSMENT AND PLAN: 1. Slurred speech. The etiology is unclear, possible transient ischemic attack versus medications. The patient appears to be at baseline. CT scan was negative. MRI is pending. Will continue current medical management. 2. Coumadin. Appreciate 's evaluation. Will follow up with Cardiology. 3. End-stage renal disease. Plan for dialysis today for 3 hours. Calcium 2.5. 4. Hypertension. Continue current blood pressure regimen. Continue ultrafiltration dialysis. 5. T7, T8 diskitis osteomyelitis, possible abscess. The patient was pending evaluation by Neurosurgery. We will follow up with Infectious Disease. Consider starting IV antibiotics. Will defer to Infectious Disease for antibiotic management. 6. History of chronic disease. Continue medical management. 7. History of T7 hemiparaplegia. Continue physical therapy. 8. Anemia. Monitor hemoglobin and hematocrit levels. We will give Epogen as needed. 9. Mineral bone disorder to monitor phosphorus levels. 10. Dyslipidemia. Continue statin therapy. 11. Diabetes. Continue Accu-Chek. Dictated By: Buck Seals DO /saul/carrie /Document#: [id number]
[2017-01-13] MEDS: WARFARIN 5 MG TAB PO SCH (19:50)
--- NOTE | 2017-01-13 21:41 | CONS ---
Date/Time of Note Date/Time of Note DATE: 01/13/17 TIME: 21:17 Consult Date/Type/Reason Admit Date/Time Jan 12, 2017 at 10:35 Initial Consult Date 01/12/17 Type of Consultation: neurology Ordering Provider: SAM CANTU DO Subjective speech is better Objective Vital Signs Date Time Temp Pulse Resp B/P Pulse Ox O2 Delivery O2 Flow Rate FiO2 01/13/17 20:20 72 01/13/17 13:50 18 01/13/17 10:35 98.7 172/81 96 Room Air 01/12/17 10:27 2 Results/Medications Result Diagram: 01/13/17 0438 01/13/17 0438 Results 24 hrs Laboratory Tests Test 01/13/17 04:05 01/13/17 04:38 01/13/17 10:44 01/13/17 14:02 Bedside Glucose 66 L 70 147 White Blood Count 8.7 Red Blood Count 3.21 L Hemoglobin 9.3 L Hematocrit 29.9 L Mean Corpuscular Volume 93.1 Mean Corpuscular Hemoglobin 29.0 Mean Corpuscular Hemoglobin Concent 31.1 L Red Cell Distribution Width 14.2 Platelet Count 272 Mean Platelet Volume 8.2 Neutrophils % 62.0 Lymphocytes % 25.1 Monocytes % 6.4 Eosinophils % 5.6 Basophils % 0.6 Nucleated Red Blood Cells % 0.0 Neutrophils # (Manual) 5.4 Lymphocytes # 2.2 Monocytes # 0.6 Eosinophils # 0.5 Basophils # 0.1 Nucleated Red Blood Cells # 0.0 Prothrombin Time 25.1 H Prothrombin Time Ratio 2.0 INR International Normalized Ratio 2.25 Sodium Level 135 Potassium Level 3.8 Chloride Level 102 Carbon Dioxide Level 26 Anion Gap 11 Blood Urea Nitrogen 40 H Creatinine 4.41 H Glucose Level 60 #L Calcium Level 8.6 Phosphorus Level 5.4 H Magnesium Level 2.1 Triglycerides Level 118 Cholesterol Level 127 LDL Cholesterol, Calculated 46 HDL Cholesterol 57 Cholesterol/HDL Ratio 2.2 Test 01/13/17 17:22 01/13/17 19:42 01/13/17 20:50 Bedside Glucose 151 108 73 Medications Current Medications Amlodipine Besylate (Norvasc) 2.5 mg DAILY PO Last administered on 01/13/17t 10: 20; Admin Dose 2.5 MG; Start 01/13/17 at 09:00 Aspirin (Aspirin) 162 mg DAILY PO Last administered on 01/13/17 10:18; Admin Dose 162 MG; Start 01/13/17 at 09:00 Atorvastatin Calcium (Lipitor) 80 mg QHS PO Last administered on 01/12/17 22:16 ; Admin Dose 80 MG; Start 01/12/17 at 21:00 Hydralazine HCl (Apresoline) 50 mg TID PO Last administered on 01/13/17 14:26; Admin Dose 50 MG; Start 01/12/17 at 13:00 Metoclopramide HCl (Reglan) 5 mg BID PO Last administered on 01/13/17 10:22; Admin Dose 5 MG; Start 01/12/17 at 21:00 Metoprolol Tartrate (Lopressor) 100 mg BID PO Last administered on 01/13/17 09: 00; Admin Dose 100 MG; Start 01/12/17 at 21:00 Pantoprazole (Protonix Tab) 40 mg DAILY@06 PO Last administered on 01/13/17 06: 04; Admin Dose 40 MG; Start 01/13/17 at 06:00 Sertraline HCl (Zoloft) 50 mg DAILY PO Last administered on 01/13/17 10:21; Admin Dose 50 MG; Start 01/13/17 at 09:00 Tolterodine Tartrate (Detrol) 2 mg BID PO Last administered on 01/13/17 10:19; Admin Dose 2 MG; Start 01/12/17 at 21:00 Diagnostic Test (Pha) (Accu-Chek) 1 ea 02 XX ; Start 01/13/17 at 02:00 Warfarin Sodium (Coumadin) 5 mg DAILY@17 PO Last administered on 01/13/17 19:50 ; Admin Dose 5 MG; Start 01/12/17 at 17:00 Miscellaneous Information 1 ea NOTE XX ; Start 01/12/17 at 13:00 Glucose (Glutose) 15 gm Q15M PRN PO DECREASED GLUCOSE; Start 01/12/17 at 13:00 Glucose (Glutose) 22.5 gm Q15M PRN PO DECREASED GLUCOSE; Start 01/12/17 at 13:00 Dextrose (D50w Syringe) 25 ml Q15M PRN IV DECREASED GLUCOSE Last administered on 01/13/17 04:53; Admin Dose 25 ML; Start 01/12/17 at 13:00 Dextrose (D50w Syringe) 50 ml Q15M PRN IV DECREASED GLUCOSE; Start 01/12/17 at 13:00 Glucagon (Glucagen) 1 mg Q15M PRN IM DECREASED GLUCOSE; Start 01/12/17 at 13:00 Glucose (Glutose) 15 gm Q15M PRN BUCCAL DECREASED GLUCOSE; Start 01/12/17 at 13: 00 Morphine Sulfate (morphine) 2 mg Q6 PRN IV pain Last administered on 01/13/17t 06:05; Admin Dose 2 MG; Start 01/12/17 at 16:00 Assessment/Plan Chief Complaint/Hosp Course NEUROLOGIC: She is awake, alert, and oriented x2 with fluent speech. Cranial nerve examination is intact visual vargas bilaterally, pupils reactive from 3-2 mm bilaterally. Extraocular movements intact without nystagmus. Symmetrical face. Preserved facial strength and sensation. Tongue was in midline. Palate elevates symmetrically. Motor strength examination seemed to be preserved in upper extremities. Lower extremities are weaker proximally about 3/5 . Deep tendon reflexes 2+ . No response to plantar stimulation bilaterally. Sensory examination is t no definite glove stocking distribution of numbness, nor sensory level. Coordination preserved on qlmtgr-da-[id number] testing. No dysmetria or tremor. DIAGNOSTIC DATA: CAT scan of the head was done, did show any acute abnormality, with old left basal gangliar infarct. CAT scan of the thoracic spine was done showing status post T5-T10 fusion with changes concerning for osteomyelitis. There is an inflammatory phlegmon in the posterior paravertebral mediastinum contacting the descending aorta and inflammatory phlegmon in the epidural space. IMPRESSION AND PLAN: 1. New onset of slurred speech, possibly cerebrovascular accident given risk factors. Continue aspirin and high dose Lipitor. Keep patient normotensive and euglycemic, cont anticoagulation. Will obtain MRI of the brain. 2. History of T7 lower paraparesis secondary to osteomyelitis according to the chart. Surgery was done in September. The patient was in the hospital in rehab in December. The patient is known to ID service and ID service was reconsulted requesting possible biopsy of the thoracic phlegmon, if it is osteomyelitis. NS consult Problems: [place] MD Jan 13, 2017 21:41
[2017-01-13] MEDS: ATORVASTATIN 80 MG TAB PO SCH (21:45)
[2017-01-14] VITALS (14 sets, daily range): BP systolic 136–192; BP diastolic 69–84; PULSE 66–72; RESP 18–20
[2017-01-14] MEDS ORDERED: NACL 3% FOR INHALATION 15 ML NEBU NEB ONE (01:00)
[2017-01-14] MEDS: ACCU-CHEK XX SCH (02:00)
--- NOTE | 2017-01-14 03:07 | CONS ---
DATE OF ADMISSION: 01/12/2017 DATE OF CONSULTATION: 01/12/2017 TYPE OF CONSULTATION: Infectious Disease I am covering for Dr. Ramesh Samaniego. DICTATION ENDS HERE Dictated By: Young Mahmood MD /saul/dion /Document#: [id number]
[2017-01-14] MEDS: morphine 2 MG INJ IV PRN ×3 (03:38→22:15)
--- NOTE | 2017-01-14 05:27 | CONS ---
DATE OF ADMISSION: 01/12/2017 DATE OF CONSULTATION: 01/12/2017 This is an infectious disease consultation dictated for Dr. Ramesh Samaniego. HISTORY OF PRESENT ILLNESS: The patient is a 51-year-old female, who was admitted on 01/12 with a chief complaint of slurred speech, altered mental status and a left-sided deep basal ganglion infarct on brain CT imaging. Two days prior, the patient had developed a left L2 dermatome zoster and had been treated with Valtrex 1 g daily. Several months ago, the patient had treatment of osteomyelitis at the T7-8, at [facility] and had drainage of epidural abscess and a laminectomy and a T5-T10 immobilization with pedicle screws. During this hospital admission, the patient had a CT scan of the spine, which revealed T4, T8 end-stage destruction compatible with osteomyelitis. There was swelling of the posterior paravertebral mediastinal space with a phlegmon, which touched the descending aorta. Her alkaline phosphatase was 150. White blood cell count was 9000 on admission. The urinalysis had a specific gravity of 1.015, +4 leukocyte esterase, greater than 200 RBCs and many bacteria. The patient has not been febrile. She speaks with a slight slur and she does not complain of any pain. She complains of some mild burning discomfort in the area of the zoster. PAST MEDICAL HISTORY: Diabetes mellitus, coronary artery disease, end-stage renal disease, currently on hemodialysis via a Levi catheter in the right subclavian area. She had a right- sided cerebrovascular accident with resulting right hemiparesis and aphasia, but not dysphasia. She has had history of atrial fibrillation. ALLERGIES: SHE IS ALLERGIC TO CODEINE. MEDICATIONS: Include: 1. Amlodipine 2.5 mg daily. 2. Aspirin 162 mg daily. 3. Sertraline 50 mg daily. 4. Pantoprazole 40 mg daily. 5. Atorvastatin 80 mg daily. 6. Metoclopramide 5 mg daily. 7. Metoprolol tartrate 100 mg twice a day. 8. Tolterodine tartrate 2 mg b.i.d. 9. Coumadin 5 mg daily. 10. Morphine sulfate as needed. 11. Hydralazine 50 mg 3 times a day. 12. Repaglinide 0.5 mg before meals. 13. Sevelamer 800 mg with meals 3 times a day. 14. Aspart insulin pen with meals and at bedtime. Dose not stated. PHYSICAL EXAMINATION: GENERAL APPEARANCE: Reveals an obese, alert, but slightly drowsy female, lying in bed with the head of the bed elevated about 20 degrees. HEENT: Her pupils are equal, round, and react to light. She is cooperative and a reasonably good historian. VITAL SIGNS: Her temperature is 98.4, pulse 72, respirations 20, her blood pressure is 160/76, and her pulse oximetry is 91 on room air. NECK: Supple. There is no jugular venous distention. There is a rather large dialysis catheter, PermCath, in the right lower bjakcdb-my-cpf pectoralis and subclavicular area. HEART: Regular with no gallop or murmur. ABDOMEN: Obese and soft. No palpable organs or masses. EXTREMITIES: Reveal a L3 zoster pattern on the abdomen at hip and left thigh, which have gotten to the point where the lesions have dried and are scabbed. The there is mild hypoesthesia to the affected area. The patient has some weakness in her right side, but she has no peripheral edema. IMPRESSION: 1. Osteomyelitis T7-T8 endplate with diskitis and epidural abscess. 2. Zoster T4 dermatome, left. 3. Urinary tract infection. 4. Right lower lobe and right middle lobe bronchiolitis. 5. End-stage renal disease. 6. Diabetes mellitus. 7. T7 paraparesis from a cerebrovascular accident with aphasia and right hemiparesis. 8. Obesity. RECOMMENDATIONS: I would recommend aspiration and biopsy of the affected at T7-T8 area and withholding antibiotics until this is done. The coverage should cover MRSA with vancomycin and ceftriaxone or Zosyn to cover the other eventualities pending culture results. Would also obtain culture of the urine and sputum and continue Valtrex 500 mg orally for [address] Dr[address] Young Mahmood for Dr. Ramesh Samaniego. Dictated By: Young Mahmood MD /saul/josee /Document#: [id number]
[2017-01-14] MEDS: PANTOPRAZOLE (EC) 40 MG TAB PO SCH (05:30)
[2017-01-14 07:08] LABS: BASOPHIL # 0.1 10^3/ul (0.0-0.1); BASOPHILS % 0.7 % (0.0-2.0); EOSINOPHILS # 0.5 10^3/ul (0.0-0.5); EOSINOPHILS % 5.3 % (0.0-7.0); HEMATOCRIT 32.8 % (37.0-47.0); HEMOGLOBIN 10.3 g/dl (12.0-16.0); LYMPHOCYTES # 2.9 10^3/ul (0.8-2.9); LYMPHOCYTES % 30.1 % (15.0-51.0); MEAN CORPUSCULAR HEMOGLOBIN 29.4 pg (29.0-33.0); MEAN CORPUSCULAR HGB CONC 31.4 g/dl (32.0-37.0); MEAN CORPUSCULAR VOLUME 93.7 fl (82.0-101.0); MONOCYTE # 0.7 10^3/ul (0.3-0.9); MONOCYTES % 6.7 % (0.0-11.0); NEUTROPHILS % 56.8 % (39.0-77.0); PLATELET COUNT 296 10^3/UL (140-415); RED CELL DISTRIBUTION WIDTH 14.4 % (11.5-14.5); WHITE BLOOD COUNT 9.7 10^3/ul (4.8-10.8)
[2017-01-14 07:31] LABS: INR 2.19; PROTIME 24.6 Sec (12.2-14.2); PT RATIO 1.9
[2017-01-14 07:35] LABS: CALCIUM 8.6 mg/dl (8.4-10.2); CREATININE 3.43 mg/dl (0.44-1.00); MAGNESIUM 2.1 mg/dl (1.7-2.5); PHOSPHORUS 4.7 mg/dl (2.5-4.9); POTASSIUM 4.2 mmol/L (3.5-5.1)
[2017-01-14] MEDS: INSULIN ASPART [NOVOLOG] 3 ML PEN SC SCH ×4 (07:45→21:00)
[2017-01-14] MEDS: REPAGLINIDE 1 MG TAB PO SCH ×3 (07:46→17:05)
[2017-01-14] MEDS: SEVELAMER 800 MG TAB PO SCH ×3 (07:46→17:05)
--- NOTE | 2017-01-14 07:47 | CONS ---
Date/Time of Note Date/Time of Note DATE: 01/14/17 TIME: 07:46 Consult Date/Type/Reason Admit Date/Time Jan 12, 2017 at 10:35 Initial Consult Date 01/12/17 Type of Consultation: CARDIOLOGY Ordering Provider: SAM CANTU DO Subjective CARDIOLOGY FOLLOW UP NOTE: Discussed with and staff. Rhythm strip was reviewed. Patient remained in sinus rhythm with no evidence of atrial fibrillation overnight. Her slurred speech has improved significantly now. Denies any chest pain or pressure or palpitation to me. objective: General: no acute distress HEENT: NC/AT. pupils are equal. round. NECK: NO JVD. no stridor. CV: RRR. systolic murmur; no gallop or rubs. PULM: no wheezing or rhonchi. GI: SOFT, NT, ND, no rebound or guarding Extremity: trace B/L LE edema. no clubbing. neuro: awake and alert, improved slurred speech Psych: calm and pleasant rectal: deferred : normal ECG NSR. Objective Vital Signs Date Time Temp Pulse Resp B/P Pulse Ox O2 Delivery O2 Flow Rate FiO2 01/14/17 04:32 72 01/14/17 04:17 98.0 19 136/84 96 01/13/17 10:35 Room Air 01/12/17 10:27 2 Intake and Output 01/13/17 01/13/17 01/14/17 14:59 22:59 06:59 Intake Total 500 ml 300 ml Output Total 3500 ml Balance -3000 ml 300 ml Results/Medications Result Diagram: 01/14/17 0604 01/14/17 0604 Results 24 hrs Laboratory Tests Test 01/13/17 10:44 01/13/17 14:02 01/13/17 17:22 01/13/17 19:42 Bedside Glucose 70 147 151 108 Test 01/13/17 20:50 01/14/17 06:04 Bedside Glucose 73 White Blood Count 9.7 Red Blood Count 3.50 L Hemoglobin 10.3 L Hematocrit 32.8 L Mean Corpuscular Volume 93.7 Mean Corpuscular Hemoglobin 29.4 Mean Corpuscular Hemoglobin Concent 31.4 L Red Cell Distribution Width 14.4 Platelet Count 296 Mean Platelet Volume 8.0 Neutrophils % 56.8 Lymphocytes % 30.1 Monocytes % 6.7 Eosinophils % 5.3 Basophils % 0.7 Nucleated Red Blood Cells % 0.0 Neutrophils # (Manual) 5.5 Lymphocytes # 2.9 Monocytes # 0.7 Eosinophils # 0.5 Basophils # 0.1 Nucleated Red Blood Cells # 0.0 Prothrombin Time 24.6 H Prothrombin Time Ratio 1.9 INR International Normalized Ratio 2.19 Sodium Level 134 L Potassium Level 4.2 Chloride Level 102 Carbon Dioxide Level 25 Anion Gap 11 Blood Urea Nitrogen 33 H Creatinine 3.43 H Glucose Level 70 Calcium Level 8.6 Phosphorus Level 4.7 Magnesium Level 2.1 Medications Current Medications Amlodipine Besylate (Norvasc) 2.5 mg DAILY PO Last administered on 01/13/17 10: 20; Admin Dose 2.5 MG; Start 01/13/17 at 09:00 Aspirin (Aspirin) 162 mg DAILY PO Last administered on 01/13/17 10:18; Admin Dose 162 MG; Start 01/13/17 at 09:00 Atorvastatin Calcium (Lipitor) 80 mg QHS PO Last administered on 01/13/17 21:45 ; Admin Dose 80 MG; Start 01/12/17 at 21:00 Hydralazine HCl (Apresoline) 50 mg TID PO Last administered on 01/13/17 21:46; Admin Dose 50 MG; Start 01/12/17 at 13:00 Metoclopramide HCl (Reglan) 5 mg BID PO Last administered on 01/13/17 21:45; Admin Dose 5 MG; Start 01/12/17 at 21:00 Metoprolol Tartrate (Lopressor) 100 mg BID PO Last administered on 01/13/17 21: 47; Admin Dose 100 MG; Start 01/12/17 at 21:00 Pantoprazole (Protonix Tab) 40 mg DAILY@06 PO Last administered on 01/14/17 05: 30; Admin Dose 40 MG; Start 01/13/17 at 06:00 Sertraline HCl (Zoloft) 50 mg DAILY PO Last administered on 01/13/17 10:21; Admin Dose 50 MG; Start 01/13/17 at 09:00 Tolterodine Tartrate (Detrol) 2 mg BID PO Last administered on 01/13/17 23:36; Admin Dose 2 MG; Start 01/12/17 at 21:00 Diagnostic Test (Pha) (Accu-Chek) 1 ea 02 XX ; Start 01/13/17 at 02:00 Warfarin Sodium (Coumadin) 5 mg DAILY@17 PO Last administered on 01/13/17 19:50 ; Admin Dose 5 MG; Start 01/12/17 at 17:00 Miscellaneous Information 1 ea NOTE XX ; Start 01/12/17 at 13:00 Glucose (Glutose) 15 gm Q15M PRN PO DECREASED GLUCOSE; Start 01/12/17 at 13:00 Glucose (Glutose) 22.5 gm Q15M PRN PO DECREASED GLUCOSE; Start 01/12/17 at 13:00 Dextrose (D50w Syringe) 25 ml Q15M PRN IV DECREASED GLUCOSE Last administered on 01/13/17 04:53; Admin Dose 25 ML; Start 01/12/17 at 13:00 Dextrose (D50w Syringe) 50 ml Q15M PRN IV DECREASED GLUCOSE; Start 01/12/17 at 13:00 Glucagon (Glucagen) 1 mg Q15M PRN IM DECREASED GLUCOSE; Start 01/12/17 at 13:00 Glucose (Glutose) 15 gm Q15M PRN BUCCAL DECREASED GLUCOSE; Start 01/12/17 at 13: 00 Morphine Sulfate (morphine) 2 mg Q6 PRN IV pain Last administered on 01/14/17 03:38; Admin Dose 2 MG; Start 01/12/17 at 16:00 Valacyclovir HCl (Valtrex) 500 mg DAILY PO ; Start 01/14/17 at 09:00; Stop at 09:01 Morphine Sulfate (morphine) 2 mg Q3H PRN IV PAIN LEVEL 6-10; Start 01/14/17 at 04:00 Assessment/Plan Chief Complaint/Hosp Course 1. Slurred speech:improved now. rule out cerebrovascular accident, possible transient ischemic attack. F/U with neurology rec permissive HTN for now until CVA is ruled out. echo recently done 2. End-stage renal disease. HD as per renal 3. Hypertension. Continue current blood pressure regimen. 4. History of chronic obstructive pulmonary disease. Continue medical management. 5. History of P afib. currently in NSR. CONT coumadin and adjust INR daily. INR is therapeutic today 6. History of T7 paraplegia. Continue physical therapy. 7. Anemia. defer to IM 8. Mineral bone disorder. We will monitor calcium and phosphorus levels. 9. Dyslipidemia. Continue statin therapy. 10. Diabetes. Continue Accu-Cheks and insulin sliding scale. Thank you for this referral I will continue to follow along with you. TAMERA BAILEY MD [facility] Problems: TAMERA BAILEY MD Jan 14, 2017 07:47
[2017-01-14] MEDS: TOLTERODINE 2 MG TAB PO SCH ×2 (08:14→21:51)
[2017-01-14] MEDS: ASPIRIN 81 MG TAB PO SCH (08:15)
[2017-01-14] MEDS: METOPROLOL 100 MG TAB PO SCH ×2 (08:15→21:52)
[2017-01-14] MEDS: METOCLOPRAMIDE 5 MG TAB PO SCH ×2 (08:15→21:52)
[2017-01-14] MEDS: SERTRALINE 50 MG TAB PO SCH (08:16)
[2017-01-14] MEDS: VALACYCLOVIR 500 MG TAB PO SCH (08:16)
[2017-01-14] MEDS: AMLODIPINE 2.5 MG TAB PO SCH (08:16)
--- NOTE | 2017-01-14 09:36 | RADRPT ---
PROCEDURE: US Carotids. CLINICAL INDICATION: bruit , cva TECHNIQUE: Multiple sonographic of the carotid bifurcation region and vertebral arteries were obta ined utilizing panchal scale, duplex and color-flow imaging. The images were reviewed on a PACS worksta tion. COMPARISON: US NECK 09/04/2015 FINDINGS: Evaluation of the right carotid bifurcation region reveals no significant calcific atherosclerotic d isease. Evaluation of the left carotid bifurcation region reveals no significant calcific atherosclerotic di sease. There is antegrade flow within the vertebral arteries bilaterally. RIGHT CAROTID MEASUREMENTS: Common Carotid Dwqnxx20.2 (cm/sec) Internal Carotid Artery - [id number] (cm/sec) Internal Carotid Artery - mid71.7 (cm/sec) Internal Carotid Artery - .6 (cm/sec) Internal Carotid/Common Carotid1.11 LEFT CAROTID MEASUREMENTS: Common Carotid Pvelmq87.1 (cm/sec) Internal Carotid Artery - .2 (cm/sec) Internal Carotid Artery - mid65.6 (cm/sec) Internal Carotid Artery - apfadp26 (cm/sec) Internal Carotid/Common Carotid0.89 RPTAT: AA IMPRESSION: No evidence for hemodynamically significant stenosis in the bilateral internal carotid arteries - va lidated velocity measurements with angiographic measurements, velocity criteria are extrapolated fro m diameter data as defined by the Society of Radiologists in Ultrasound Consensus Conference Radiolo gy 2003; 229;340-346. This study does indirectly reference the measurement of the distal ICA diamet er as the denominator for stenosis measurement. Normal antegrade flow in the vertebral arteries bilaterally. .Jairo Fatima MD, Date Time Electronically viewed and signed by .Jairo Fatima MD, MD on 01/14/2017 09:36 .S/
--- NOTE | 2017-01-14 10:00 | PN ---
DATE: 01/14/2017 SUBJECTIVE DATA: The patient is stable. No events overnight. No hemoptysis, hematemesis, hematochezia. OBJECTIVE DATA: VITAL SIGNS: Blood pressure this morning was 192/79, respirations 19, pulse 80, temperature 98.4. HEENT: Head is normocephalic. NECK: Supple. HEART: Regular rate. LUNGS: Showed diminished breath sounds at the base. ABDOMEN: Soft, nontender to palpation. No rebound or guarding. EXTREMITIES: Negative for clubbing, cyanosis. No edema. DERMATOLOGIC: Clean. No rashes. MUSCULOSKELETAL: No joint effusion. NEUROLOGIC: No change in exam. MEDICATIONS: Reviewed. LABORATORY AND DIAGNOSTIC DATA: Shows a sodium of 134, potassium 4.2, BUN 33, creatinine 3.43. White count 9.7, hemoglobin 10.3, crit 32.8, platelet count is 296. ASSESSMENT AND PLAN: 1. Transient ischemic attack, possible cerebrovascular accident. The patient is pending MRI of the brain. We will continue current medical management with aspirin, Coumadin, continue Lipitor. Follow up with Neurology. 2. History of paroxysmal atrial fibrillation. Currently, the patient is in sinus rhythm. Continue Coumadin. INR is at goal. Being just by Cardiology. 3. End-stage renal disease. Plan for hemodialysis tomorrow. 4. Hypertension. Blood pressure elevated. We will adjust blood pressure medications as needed. 5. Possible osteomyelitis of T7-T8, diskitis. The patient is pending MRI of the spine. Appreciate Neurosurgery's evaluation. Will continue. 6. Anemia of chronic disease. Continue medical management. 7. History of T7 hemiplegia. Continue physical therapy. 8. Mineral bone disorder. Continue to monitor calcium and phosphorus levels. 9. Dyslipidemia. Continue statin therapy. 10. Diabetes. Continue Accu-Cheks and insulin sliding scale. 11. Chronic pain syndrome. Continue current pain regimen and monitor. 12. Mild hyponatremia. Continue to monitor. 13. Gastrointestinal and deep venous thrombosis prophylaxis. Continue proton pump inhibitor and Coumadin. Dictated By: Buck Seals DO /saul/josee /Document#: [id number]
--- NOTE | 2017-01-14 11:08 | PN ---
Date/Time of Note Date/Time of Note DATE: 01/14/17 TIME: 11:08 Assessment/Plan VTE Prophylaxis VTE Prophylaxis Intervention: other (pt on coumadin) Lines/Catheters IV Catheter Type (from Nrs): Saline Lock Urinary Cath still in place: No Assessment/Plan Chief Complaint/Hosp Course 52 y/o female with history DM, ESRD, CAD, CVA, and recently started on Valtrex for Shingles. Per history, pt admitted for possible CVA/TIA and given ASA in ED. CT brain on arrival showed no acute bleed. CT abd/thoracic spine showed known previous T5-10 posterior rods/screws per pt done 10/05/2016 at [place] for infection and had 2 weeks iv antibiotics post op. Called to evaluate regarding possible T/L spine osteo/diskitis and possible SI joint infection noted as well. Pt with worsening back pain and some recent chills but no fever. Pt requires max assistance with FWW since surgery. pmh/psx: per hpi/chart meds: see med recon ros: per hpi/chart Problems: Assessment/Plan impression Possible Thoracic (T7-8) and Lumbar (L5-S1) Osteo/diskitis worsening back pain past few months per weakness and pain worse with standing Possible cva/tia plan cont supportive care finalize recs once MRI studies completed Will likely need staged surgical intervention for T/L spine diskitis with 4-6 weeks iv antibx to follow Will need Neurology / Cards clearance prior to surgery Will need to be off Asa / Coumadin for several days prior to NSX intervention. INR < 1.5 prior to surgery d/w Dr. Maldonado Subjective 24 Hr Interval Summary Free Text/Dictation S: NAD MRI studies all pending Exam/Review of Systems Vital Signs Vitals Vital Signs Date Time Temp Pulse Resp B/P Pulse Ox O2 Delivery O2 Flow Rate FiO2 01/14/17 08:44 70 01/14/17 07:58 98.4 19 192/79 98 01/13/17 10:35 Room Air 01/12/17 10:27 2 Intake and Output 01/13/17 01/13/17 01/14/17 15:00 23:00 07:00 Intake Total 500 ml 300 ml Output Total 3500 ml Balance -3000 ml 300 ml Exam 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: other (MS: AAOX4 CN:PERRL , FS M: following commands, strength unchanged) Results Result Diagram: 01/14/17 0604 01/14/17 0604 Results 24 hrs Laboratory Tests Test 01/13/17 14:02 01/13/17 17:22 01/13/17 19:42 01/13/17 20:50 Bedside Glucose 147 151 108 73 Test 01/14/17 06:04 01/14/17 07:45 White Blood Count 9.7 Red Blood Count 3.50 L Hemoglobin 10.3 L Hematocrit 32.8 L Mean Corpuscular Volume 93.7 Mean Corpuscular Hemoglobin 29.4 Mean Corpuscular Hemoglobin Concent 31.4 L Red Cell Distribution Width 14.4 Platelet Count 296 Mean Platelet Volume 8.0 Neutrophils % 56.8 Lymphocytes % 30.1 Monocytes % 6.7 Eosinophils % 5.3 Basophils % 0.7 Nucleated Red Blood Cells % 0.0 Neutrophils # (Manual) 5.5 Lymphocytes # 2.9 Monocytes # 0.7 Eosinophils # 0.5 Basophils # 0.1 Nucleated Red Blood Cells # 0.0 Prothrombin Time 24.6 H Prothrombin Time Ratio 1.9 INR International Normalized Ratio 2.19 Sodium Level 134 L Potassium Level 4.2 Chloride Level 102 Carbon Dioxide Level 25 Anion Gap 11 Blood Urea Nitrogen 33 H Creatinine 3.43 H Glucose Level 70 Calcium Level 8.6 Phosphorus Level 4.7 Magnesium Level 2.1 Bedside Glucose 84 Medications Medications Current Medications Amlodipine Besylate (Norvasc) 2.5 mg DAILY PO Last administered on 01/14/17 08: 16; Admin Dose 2.5 MG; Start 01/13/17 at 09:00 Aspirin (Aspirin) 162 mg DAILY PO Last administered on 01/14/17 08:15; Admin Dose 162 MG; Start 01/13/17 at 09:00 Atorvastatin Calcium (Lipitor) 80 mg QHS PO Last administered on 01/13/17 21:45 ; Admin Dose 80 MG; Start 01/12/17 at 21:00 Hydralazine HCl (Apresoline) 50 mg TID PO Last administered on 01/14/17 08:15; Admin Dose 50 MG; Start 01/12/17 at 13:00 Metoclopramide HCl (Reglan) 5 mg BID PO Last administered on 01/14/17 08:15; Admin Dose 5 MG; Start 01/12/17 at 21:00 Metoprolol Tartrate (Lopressor) 100 mg BID PO Last administered on 01/14/17 08: 15; Admin Dose 100 MG; Start 01/12/17 at 21:00 Pantoprazole (Protonix Tab) 40 mg DAILY@06 PO Last administered on 01/14/17 05: 30; Admin Dose 40 MG; Start 01/13/17 at 06:00 Sertraline HCl (Zoloft) 50 mg DAILY PO Last administered on 01/14/17 08:16; Admin Dose 50 MG; Start 01/13/17 at 09:00 Tolterodine Tartrate (Detrol) 2 mg BID PO Last administered on 01/14/17 08:14; Admin Dose 2 MG; Start 01/12/17 at 21:00 Diagnostic Test (Pha) (Accu-Chek) 1 ea 02 XX ; Start 01/13/17 at 02:00 Warfarin Sodium (Coumadin) 5 mg DAILY@17 PO Last administered on 01/13/17 19:50 ; Admin Dose 5 MG; Start 01/12/17 at 17:00 Miscellaneous Information 1 ea NOTE XX ; Start 01/12/17 at 13:00 Glucose (Glutose) 15 gm Q15M PRN PO DECREASED GLUCOSE; Start 01/12/17 at 13:00 Glucose (Glutose) 22.5 gm Q15M PRN PO DECREASED GLUCOSE; Start 01/12/17 at 13:00 Dextrose (D50w Syringe) 25 ml Q15M PRN IV DECREASED GLUCOSE Last administered on 01/13/17 04:53; Admin Dose 25 ML; Start 01/12/17 at 13:00 Dextrose (D50w Syringe) 50 ml Q15M PRN IV DECREASED GLUCOSE; Start 01/12/17 at 13:00 Glucagon (Glucagen) 1 mg Q15M PRN IM DECREASED GLUCOSE; Start 01/12/17 at 13:00 Glucose (Glutose) 15 gm Q15M PRN BUCCAL DECREASED GLUCOSE; Start 01/12/17 at 13: 00 Morphine Sulfate (morphine) 2 mg Q6 PRN IV pain Last administered on 01/14/17 03:38; Admin Dose 2 MG; Start 01/12/17 at 16:00 Valacyclovir HCl (Valtrex) 500 mg DAILY PO Last administered on 01/14/17 08:16 ; Admin Dose 500 MG; Start 01/14/17 at 09:00; Stop 01/18/17 at 09:01 Morphine Sulfate (morphine) 2 mg Q3H PRN IV PAIN LEVEL 6-10 Last administered on 01/14/17t 08:12; Admin Dose 2 MG; Start 01/14/17 at 04:00 ELANA BORGES NP Jan 14, 2017 11:08
[2017-01-14] MEDS: WARFARIN 5 MG TAB PO SCH (17:05)
[2017-01-14] MEDS ORDERED: IOHEXOL 300MG/ML 150 ML BTL ONE (18:20)
[2017-01-14] MEDS ORDERED: SOD CHLORIDE 0.9% 0 ML ONE (18:20)
--- NOTE | 2017-01-14 19:27 | PN ---
DATE: 01/14/2017 SUBJECTIVE DATA: No acute changes overnight. Patient is alert, feels better, looks comfortable. Family at bedside. She is afebrile. LABORATORY AND DIAGNOSTIC DATA: WBC today 9.7, no shift, no bands. INDWELLING: Right chest PermCath. ANTIMICROBIALS: She is on Valtrex. OBJECTIVE DATA: GENERAL: This is obese, well developed, middle-aged woman who is awake, in no distress. HEENT: Head atraumatic, normocephalic. Sclerae anicteric. Buccal mucosa pink. NECK: Supple. CHEST: Rise symmetrical. Breath sounds clear. HEART: S1, S2. ABDOMEN: Soft, bowel sounds present. EXTREMITIES: Without cyanosis. ASSESSMENT: 1. Status post slurred speech with a CT of the brain revealed no evidence of acute cerebrovascular accident, neurology follows. 2. S5, L1, T7 and T8 discitis, osteomyelitis, questionable abscess versus phlegmon as per CT abdomen and thoracic spine. 3. Status post shingles. 4. End-stage renal disease, on hemodialysis. 5. Coronary artery disease. 6. Anemia. 7. Diabetes. 8. History of T7 paraplegia status post surgical intervention. PLAN: Patient remains stable. Neurosurgery is on case. Pending MRI. Pending CT-guided needle aspiration with biopsy. Continue present care. Keep off antibiotics until CT-guided needle aspiration completed. Discontinue isolation as her shingles resolved and she is completing treatment with Valtrex. The lesions are dried and there is no drainage. Above was discussed with patient and family at bedside. Above was discussed with RN. Dictated By: Nini Velázquez NP /saul/aurelia /Document#: [id number]
[2017-01-14] MEDS: ATORVASTATIN 80 MG TAB PO SCH (21:51)
[2017-01-15] VITALS (18 sets, daily range): BP systolic 130–179; BP diastolic 68–90; PULSE 65–77; RESP 18–20
[2017-01-15] MEDS: ACCU-CHEK XX SCH (02:00)
[2017-01-15] MEDS: morphine 2 MG INJ IV PRN ×3 (04:55→16:09)
[2017-01-15] MEDS: PANTOPRAZOLE (EC) 40 MG TAB PO SCH (05:00)
[2017-01-15] MEDS: REPAGLINIDE 1 MG TAB PO SCH ×3 (07:25→18:16)
[2017-01-15 07:36] LABS: BASOPHIL # 0.1 10^3/ul (0.0-0.1); BASOPHILS % 0.7 % (0.0-2.0); EOSINOPHILS # 0.4 10^3/ul (0.0-0.5); EOSINOPHILS % 4.3 % (0.0-7.0); HEMATOCRIT 34.2 % (37.0-47.0); HEMOGLOBIN 10.8 g/dl (12.0-16.0); LYMPHOCYTES # 2.2 10^3/ul (0.8-2.9); LYMPHOCYTES % 22.6 % (15.0-51.0); MEAN CORPUSCULAR HEMOGLOBIN 28.9 pg (29.0-33.0); MEAN CORPUSCULAR HGB CONC 31.6 g/dl (32.0-37.0); MEAN CORPUSCULAR VOLUME 91.4 fl (82.0-101.0); MONOCYTE # 0.6 10^3/ul (0.3-0.9); MONOCYTES % 6.5 % (0.0-11.0); NEUTROPHILS % 65.6 % (39.0-77.0); PLATELET COUNT 291 10^3/UL (140-415); RED BLOOD COUNT 3.74 10^6/ul (4.20-5.40); RED CELL DISTRIBUTION WIDTH 14.3 % (11.5-14.5); WHITE BLOOD COUNT 9.8 10^3/ul (4.8-10.8)
[2017-01-15] MEDS: INSULIN ASPART [NOVOLOG] 3 ML PEN SC SCH ×4 (07:55→21:00)
[2017-01-15 08:05] LABS: CREATININE 3.75 mg/dl (0.44-1.00); POTASSIUM 3.5 mmol/L (3.5-5.1)
[2017-01-15] MEDS: SEVELAMER 800 MG TAB PO SCH ×3 (08:16→18:16)
[2017-01-15] MEDS: AMLODIPINE 2.5 MG TAB PO SCH (08:16)
[2017-01-15] MEDS: TOLTERODINE 2 MG TAB PO SCH ×2 (08:16→21:38)
[2017-01-15] MEDS: ASPIRIN 81 MG TAB PO SCH (08:16)
[2017-01-15] MEDS: VALACYCLOVIR 500 MG TAB PO SCH (08:17)
[2017-01-15] MEDS: METOPROLOL 100 MG TAB PO SCH ×2 (08:17→21:38)
[2017-01-15] MEDS: SERTRALINE 50 MG TAB PO SCH (09:05)
[2017-01-15] MEDS: METOCLOPRAMIDE 5 MG TAB PO SCH ×2 (09:05→21:38)
[2017-01-15] MEDS ORDERED: DOCUSATE SODIUM 100 MG CAP PO PRN ×2 (09:30)
[2017-01-15] MEDS ORDERED: MAGNESIUM CITRATE 300 ML BTL PO ONE (09:30)
[2017-01-15] MEDS ORDERED: LACTULOSE 30ML CUP PO PRN (09:30)
[2017-01-15] MEDS ORDERED: BISACODYL 10 MG SUPP PR PRN (09:30)
[2017-01-15] MEDS ORDERED: NA PHOSPHATE/BIPHOS 133 ML ENEMA PR PRN (09:30)
[2017-01-15] MEDS: SENNA TAB PO SCH (10:20)
[2017-01-15] MEDS: POLYETHYLENE GLYCOL 17 GM PACKET PO SCH (10:20)
--- NOTE | 2017-01-15 11:10 | CONS ---
Date/Time of Note Date/Time of Note DATE: 01/15/17 TIME: 11:07 Consult Date/Type/Reason Admit Date/Time Jan 12, 2017 at 10:35 Initial Consult Date 01/12/17 Type of Consultation: Neurology Ordering Provider: SAM CANTU DO Subjective no further speech issues denies any weakness, no neurologic c/o at this time Objective Vital Signs Date Time Temp Pulse Resp B/P Pulse Ox O2 Delivery O2 Flow Rate FiO2 01/15/17 08:50 69 01/15/17 07:52 98.2 20 179/83 97 01/13/17 10:35 Room Air 01/12/17 10:27 2 Intake and Output 01/14/17 01/14/17 01/15/17 15:00 23:00 07:00 Intake Total 500 ml 200 ml Balance 500 ml 200 ml Exam NEUROLOGIC: She is awake, alert, and oriented x2 with fluent speech. Cranial nerve examination is intact visual vargas bilaterally, pupils reactive from 3-2 mm bilaterally. Extraocular movements intact without nystagmus. Symmetrical face. Preserved facial strength and sensation. Tongue was in midline. Palate elevates symmetrically. Motor strength examination seemed to be preserved in upper extremities. Lower extremities are weaker proximally about 4-/5 . Deep tendon reflexes 2+ . No response to plantar stimulation bilaterally. Sensory examination is t no definite glove stocking distribution of numbness, nor sensory level. Coordination preserved on [id number] testing. No dysmetria or tremor. Results/Medications Result Diagram: 01/15/17 0710 01/15/17 0710 Results 24 hrs Laboratory Tests Test 01/14/17 11:13 01/14/17 17:04 01/14/17 22:20 01/15/17 07:10 Bedside Glucose 70 114 110 White Blood Count 9.8 Red Blood Count 3.74 L Hemoglobin 10.8 L Hematocrit 34.2 L Mean Corpuscular Volume 91.4 Mean Corpuscular Hemoglobin 28.9 L Mean Corpuscular Hemoglobin Concent 31.6 L Red Cell Distribution Width 14.3 Platelet Count 291 Mean Platelet Volume 8.0 Neutrophils % 65.6 Lymphocytes % 22.6 Monocytes % 6.5 Eosinophils % 4.3 Basophils % 0.7 Nucleated Red Blood Cells % 0.0 Neutrophils # (Manual) 6.5 Lymphocytes # 2.2 Monocytes # 0.6 Eosinophils # 0.4 Basophils # 0.1 Nucleated Red Blood Cells # 0.0 Sodium Level 136 Potassium Level 3.5 Chloride Level 102 Carbon Dioxide Level 24 Anion Gap 14 Blood Urea Nitrogen 39 H Creatinine 3.75 H Glucose Level 109 Calcium Level 9.0 Phosphorus Level 5.0 H Magnesium Level 2.0 Test 01/15/17 08:59 Bedside Glucose 120 Medications Current Medications Amlodipine Besylate (Norvasc) 2.5 mg DAILY PO Last administered on 01/15/17 08: 16; Admin Dose 2.5 MG; Start 01/13/17 at 09:00 Aspirin (Aspirin) 162 mg DAILY PO Last administered on 01/15/17 08:16; Admin Dose 162 MG; Start 01/13/17 at 09:00 Atorvastatin Calcium (Lipitor) 80 mg QHS PO Last administered on 01/14/17 21:51 ; Admin Dose 80 MG; Start 01/12/17 at 21:00 Hydralazine HCl (Apresoline) 50 mg TID PO Last administered on 01/15/17 08:17; Admin Dose 50 MG; Start 01/12/17 at 13:00 Metoclopramide HCl (Reglan) 5 mg BID PO Last administered on 01/15/17 09:05; Admin Dose 5 MG; Start 01/12/17 at 21:00 Metoprolol Tartrate (Lopressor) 100 mg BID PO Last administered on 01/15/17 08: 17; Admin Dose 100 MG; Start 01/12/17 at 21:00 Pantoprazole (Protonix Tab) 40 mg DAILY@06 PO Last administered on 01/15/17 05: 00; Admin Dose 40 MG; Start 01/13/17 at 06:00 Sertraline HCl (Zoloft) 50 mg DAILY PO Last administered on 01/15/17 09:05; Admin Dose 50 MG; Start 01/13/17 at 09:00 Tolterodine Tartrate (Detrol) 2 mg BID PO Last administered on 01/15/17 08:16; Admin Dose 2 MG; Start 01/12/17 at 21:00 Diagnostic Test (Pha) (Accu-Chek) 1 ea 02 XX ; Start 01/13/17 at 02:00 Warfarin Sodium (Coumadin) 5 mg DAILY@17 PO Last administered on 9/7/17at 17:05 ; Admin Dose 5 MG; Start 01/12/17 at 17:00 Miscellaneous Information 1 ea NOTE XX ; Start 01/12/17 at 13:00 Glucose (Glutose) 15 gm Q15M PRN PO DECREASED GLUCOSE; Start 01/12/17 at 13:00 Glucose (Glutose) 22.5 gm Q15M PRN PO DECREASED GLUCOSE; Start 01/12/17 at 13:00 Dextrose (D50w Syringe) 25 ml Q15M PRN IV DECREASED GLUCOSE Last administered on 01/13/17 04:53; Admin Dose 25 ML; Start 01/12/17 at 13:00 Dextrose (D50w Syringe) 50 ml Q15M PRN IV DECREASED GLUCOSE; Start 01/12/17 at 13:00 Glucagon (Glucagen) 1 mg Q15M PRN IM DECREASED GLUCOSE; Start 01/12/17 at 13:00 Glucose (Glutose) 15 gm Q15M PRN BUCCAL DECREASED GLUCOSE; Start 01/12/17 at 13: 00 Morphine Sulfate (morphine) 2 mg Q6 PRN IV pain Last administered on 01/15/17 04:55; Admin Dose 2 MG; Start 01/12/17 at 16:00 Valacyclovir HCl (Valtrex) 500 mg DAILY PO Last administered on 01/15/17 08:17 ; Admin Dose 500 MG; Start 01/14/17 at 09:00; Stop 01/18/17 at 09:01 Morphine Sulfate (morphine) 2 mg Q3H PRN IV PAIN LEVEL 6-10 Last administered on 01/15/17 10:20; Admin Dose 2 MG; Start 01/14/17 at 04:00 Bisacodyl (Dulcolax Supp) 10 mg Q24H PRN [place] CONSTIPATION; Start 01/15/17 at 09: 30 Docusate Sodium (Colace) 100 mg QHS PRN PO CONSTIPATION; Start 01/15/17 at 09:30 Lactulose (Enulose) 20 gm DAILY PRN PO CONSTIPATION; Start 01/15/17 at 09:30 Senna (Senokot) 1 tab DAILY PO Last administered on 01/15/17 10:20; Admin Dose 1 TAB; Start 01/15/17 at 09:30 Polyethylene Glycol (Miralax) 17 gm DAILY PO Last administered on 01/15/17 10: 20; Admin Dose 17 GM; Start 01/15/17 at 09:30 Sodium Biphosphate/ Sodium Phosphate (Fleet Enema) 133 ml DAILY PRN [place] CONSTIPATION; Start 01/15/17 at 09:30 Assessment/Plan Chief Complaint/Hosp Course 51 yo with old left basal ganglia infarct, CT T Spine T5-T10 fusion concerning for OM. Maintain normotensive BP, continue with ASA and high intensity statin. MRI Brain, Cervical, Thoracic, and Lumbar Spine with contrast are all pending. Neurosurgery consultation if spine imaging concerning for OM. Problems: AMADOU ROBERTSON MD Jan 15, 2017 11:10
--- NOTE | 2017-01-15 12:40 | RADRPT ---
PROCEDURE: XR Abdomen. CLINICAL INDICATION: Abdomen pain/abdomen distension. TECHNIQUE: AP abdomen x-ray. COMPARISON: CT abdomen pelvis, 01/12/2017. FINDINGS: The bowel gas pattern is normal. There is no evidence of obstruction. There are no abnormal calcif ications overlying the urinary tracts. There is some fecal impaction along the colon. IMPRESSION: 1. Unremarkable abdomen radiograph. 2. Some fecal impaction along the colon. RPTAT: GG .Marbin Kay MD, MD Date Time Electronically viewed and signed by .Marbin Kay MD, MD on 01/15/2017 12:40 .Y/
--- NOTE | 2017-01-15 15:54 | CONS ---
Date/Time of Note Date/Time of Note DATE: 01/15/17 TIME: 15:52 Assessment/Plan Assessment/Plan Chief Complaint/Hosp Course SUBJECTIVE DATA: No acute changes overnight. Patient is alert, looks comfortable. Family at bedside. She is afebrile. INDWELLING: Right chest PermCath. ANTIMICROBIALS: Valtrex. OBJECTIVE DATA: GENERAL: This is obese, well developed, middle-aged woman who is awake, in no distress. HEENT: Head atraumatic, normocephalic. Sclerae anicteric. Buccal mucosa pink. NECK: Supple. CHEST: Rise symmetrical. Breath sounds clear. HEART: S1, S2. ABDOMEN: Soft, bowel sounds present. EXTREMITIES: Without cyanosis. ASSESSMENT: 1. Status post slurred speech with a CT of the brain revealed no evidence of acute cerebrovascular accident, neurology follows. 2. S5, L1, T7 and T8 discitis, osteomyelitis, questionable abscess versus phlegmon as per CT abdomen and thoracic spine. 3. Status post shingles. 4. End-stage renal disease, on hemodialysis. 5. Coronary artery disease. 6. Anemia. 7. Diabetes. 8. History of T7 paraplegia status post surgical intervention. PLAN: Patient remains stable. Neurosurgery is on case. Pending MRI. Pending CT-guided needle aspiration with biopsy. Continue present care. Keep off antibiotics until CT-guided needle aspiration completed. DW staff DW family at bedside Problems: Consultation Date/Type/Reason Admit Date/Time Jan 12, 2017 at 10:35 Initial Consult Date 01/12/17 Type of Consultation: id Referring Provider: SAM CANTU DO Exam/Review of Systems Vital Signs Vitals Vital Signs Date Time Temp Pulse Resp B/P Pulse Ox O2 Delivery O2 Flow Rate FiO2 01/15/17 15:27 98.8 69 18 162/90 98 01/13/17 10:35 Room Air 01/12/17 10:27 2 Intake and Output 01/14/17 01/14/17 01/15/17 15:00 23:00 07:00 Intake Total 500 ml 200 ml Balance 500 ml 200 ml Results Result Diagram: 01/15/17 0710 01/15/17 0710 Results 24 hrs Laboratory Tests Test 01/14/17 17:04 01/14/17 22:20 01/15/17 07:10 01/15/17 08:59 Bedside Glucose 114 110 120 White Blood Count 9.8 Red Blood Count 3.74 L Hemoglobin 10.8 L Hematocrit 34.2 L Mean Corpuscular Volume 91.4 Mean Corpuscular Hemoglobin 28.9 L Mean Corpuscular Hemoglobin Concent 31.6 L Red Cell Distribution Width 14.3 Platelet Count 291 Mean Platelet Volume 8.0 Neutrophils % 65.6 Lymphocytes % 22.6 Monocytes % 6.5 Eosinophils % 4.3 Basophils % 0.7 Nucleated Red Blood Cells % 0.0 Neutrophils # (Manual) 6.5 Lymphocytes # 2.2 Monocytes # 0.6 Eosinophils # 0.4 Basophils # 0.1 Nucleated Red Blood Cells # 0.0 Sodium Level 136 Potassium Level 3.5 Chloride Level 102 Carbon Dioxide Level 24 Anion Gap 14 Blood Urea Nitrogen 39 H Creatinine 3.75 H Glucose Level 109 Calcium Level 9.0 Phosphorus Level 5.0 H Magnesium Level 2.0 Test 01/15/17 13:17 Bedside Glucose 92 Medications Medications Current Medications Amlodipine Besylate (Norvasc) 2.5 mg DAILY PO Last administered on 01/15/17 08: 16; Admin Dose 2.5 MG; Start 01/13/17 at 09:00 Aspirin (Aspirin) 162 mg DAILY PO Last administered on 01/15/17 08:16; Admin Dose 162 MG; Start 01/13/17 at 09:00 Atorvastatin Calcium (Lipitor) 80 mg QHS PO Last administered on 01/14/17 21:51 ; Admin Dose 80 MG; Start 01/12/17 at 21:00 Hydralazine HCl (Apresoline) 50 mg TID PO Last administered on 01/15/17 13:25; Admin Dose 50 MG; Start 01/12/17 at 13:00 Metoclopramide HCl (Reglan) 5 mg BID PO Last administered on 01/15/17 09:05; Admin Dose 5 MG; Start 01/12/17 at 21:00 Metoprolol Tartrate (Lopressor) 100 mg BID PO Last administered on 01/15/17 08: 17; Admin Dose 100 MG; Start 01/12/17 at 21:00 Pantoprazole (Protonix Tab) 40 mg DAILY@06 PO Last administered on 01/15/17 05: 00; Admin Dose 40 MG; Start 01/13/17 at 06:00 Sertraline HCl (Zoloft) 50 mg DAILY PO Last administered on 01/15/17 09:05; Admin Dose 50 MG; Start 01/13/17 at 09:00 Tolterodine Tartrate (Detrol) 2 mg BID PO Last administered on 01/15/17 08:16; Admin Dose 2 MG; Start 01/12/17 at 21:00 Diagnostic Test (Pha) (Accu-Chek) 1 ea 02 XX ; Start 01/13/17 at 02:00 Warfarin Sodium (Coumadin) 5 mg DAILY@17 PO Last administered on 01/14/17 17:05 ; Admin Dose 5 MG; Start 01/12/17 at 17:00 Miscellaneous Information 1 ea NOTE XX ; Start 01/12/17 at 13:00 Glucose (Glutose) 15 gm Q15M PRN PO DECREASED GLUCOSE; Start 01/12/17 at 13:00 Glucose (Glutose) 22.5 gm Q15M PRN PO DECREASED GLUCOSE; Start 01/12/17 at 13:00 Dextrose (D50w Syringe) 25 ml Q15M PRN IV DECREASED GLUCOSE Last administered on 01/13/17 04:53; Admin Dose 25 ML; Start 01/12/17 at 13:00 Dextrose (D50w Syringe) 50 ml Q15M PRN IV DECREASED GLUCOSE; Start 01/12/17 at 13:00 Glucagon (Glucagen) 1 mg Q15M PRN IM DECREASED GLUCOSE; Start 01/12/17 at 13:00 Glucose (Glutose) 15 gm Q15M PRN BUCCAL DECREASED GLUCOSE; Start 01/12/17 at 13: 00 Morphine Sulfate (morphine) 2 mg Q6 PRN IV pain Last administered on 01/15/17 04:55; Admin Dose 2 MG; Start 01/12/17 at 16:00 Valacyclovir HCl (Valtrex) 500 mg DAILY PO Last administered on 01/15/17 08:17 ; Admin Dose 500 MG; Start 01/14/17 at 09:00; Stop 01/18/17 at 09:01 Morphine Sulfate (morphine) 2 mg Q3H PRN IV PAIN LEVEL 6-10 Last administered on 01/15/17 10:20; Admin Dose 2 MG; Start 01/14/17 at 04:00 Bisacodyl (Dulcolax Supp) 10 mg Q24H PRN [place] CONSTIPATION; Start 01/15/17 at 09: 30 Docusate Sodium (Colace) 100 mg QHS PRN PO CONSTIPATION; Start 01/15/17 at 09:30 Lactulose (Enulose) 20 gm DAILY PRN PO CONSTIPATION; Start 01/15/17 at 09:30 Senna (Senokot) 1 tab DAILY PO Last administered on 01/15/17 10:20; Admin Dose 1 TAB; Start 01/15/17 at 09:30 Polyethylene Glycol (Miralax) 17 gm DAILY PO Last administered on 01/15/17 10: 20; Admin Dose 17 GM; Start 01/15/17 at 09:30 Sodium Biphosphate/ Sodium Phosphate (Fleet Enema) 133 ml DAILY PRN [place] CONSTIPATION; Start 01/15/17 at 09:30 ADALID LEO NP Jan 15, 2017 15:54
--- NOTE | 2017-01-15 17:38 | RADRPT ---
PROCEDURE: MR Brain without contrast. CLINICAL INDICATION: Neurologic deficit TECHNIQUE: An MRI of the brain was performed on a high-resolution MR scanner utilizing the followi ng sequences: Sagittal and axial T1 weighted, axial T2 weighted, axial FLAIR, coronal GRE, and axial diffusion weighted with ADC mapping. Images were reviewed high-resolution PACS workstation. No con trast was administered. COMPARISON: Head CT 01/12/2017 FINDINGS: No acute parenchymal hemorrhage, mass effect, or midline shift. No evidence of recent infarct. Chron ic left basal ganglia lacunar infarct GRE susceptibility and with T2 hyperintensity along the left c orticospinal tract.. No suspicious parenchymal hypointense signal abnormalities are seen on the GRE images to suggest the presence of blood degradation products. The ventricles are stable size. Normal flow voids are visible in the proximal intracranial arteries suggesting their patency. Left maxillary sinus mucosal thickening. IMPRESSION: No acute intracranial abnormality or evidence of recent infarct. Chronic left basal ganglia lacunar infarct with evidence of prior hemorrhage and wallerian degenerat ion along the left corticospinal tract. RPTAT: AA .Minh Aguirre MD, Date Time Electronically viewed and signed by .Minh Agurire MD, on 01/15/2017 17:38 .T/
--- NOTE | 2017-01-15 17:40 | PN ---
DATE: SUBJECTIVE: Patient is complaining of constipation, some mild abdominal pain. Patient is pending MRI today. No other events noted. OBJECTIVE DATA: VITAL SIGNS: Blood pressure is 179/83, respiration is 20, pulse is 76, temperature 98.2. HEENT: Head is normocephalic. NECK: Supple. HEART: Regular rate. LUNGS: Diminished breath sounds at base. ABDOMEN: Soft, nontender to palpation. No rebound, guarding. EXTREMITIES: Negative for clubbing, cyanosis. No edema. DERMATOLOGIC: No rashes. MUSCULOSKELETAL: No joint effusion. NEUROLOGIC: Unchanged exam. MEDICATIONS: Reviewed. LABORATORY AND DIAGNOSTIC DATA: Sodium 136, potassium 3.5, chloride 102, BUN 39, creatinine 3.75, phosphorus 5. white count 9.8, hemoglobin 10.8, hematocrit 34.2, platelet count is 291,000. ASSESSMENT AND PLAN: 1. Transient ischemic attack, rule out cerebrovascular accident. Patient is clinically improved. MRI of brain is pending. Will continue current medical management, aspirin and Lipitor. Follow up with Neurology. 2. Paroxysmal atrial fibrillation. Patient currently in sinus rhythm. Patient is currently on Coumadin. Will continue for now. May need to discontinue if patient requires surgery. 3. End-stage renal disease. Plan for hemodialysis today. 4. Constipation. Patient will be placed on bowel regimen. Will check a KUB to evaluate abdomen. 5. Hypertension. Plan is continue current blood pressure regimen. Continue ultrafiltration dialysis. 6. Possible osteomyelitis, T7, T8. Patient's MRI of the spine is pending. 7. Anemia. Monitor hemoglobin and hematocrit levels. Continue Epogen. 8. History of T7 paraplegia. Continue physical therapy. 9. Mineral bone disorder. Monitor calcium and phosphorus levels. 10. . Continue statin therapy. 11. Diabetes. Continue Accu-Cheks and sliding scale. 12. Chronic pain syndrome. Continue current pain regimen. 13. Gastrointestinal and deep venous thrombosis prophylaxis. Continue proton pump inhibitor and Coumadin at this time. 14. Shingles. Patient is completing course of Valtrex. Dictated By: Buck Seals DO /saul/tammy /Document#: [id number]
--- NOTE | 2017-01-15 17:40 | RADRPT ---
PROCEDURE: MRI Cervical spine without contrast CLINICAL INDICATION: Neck pain TECHNIQUE: An MRI of the cervical spine was performed utilizing the following sequences: Sagittal T1 weighted, sagittal and axial T2 weighted, axial GREand sagittal STIR. COMPARISON: None FINDINGS: There is a normal cervical lordosis. No acute vertebral compression fracture. No diffuse marrow re placing process. The cervical cord demonstrates normal signal intensity. C2-3: The disk is preserved height. No significant disk protrusion, spinal canal or foraminal sten osis. C3-4: The disk is preserved height. No significant disk protrusion, spinal canal or foraminal selina nosis. C4-5: The disk is preserved height. No significant disk protrusion, spinal canal or foraminal sten osis. C5-6: Mild disc height loss and 3 mm central disc protrusion. Mild spinal canal stenosis. Uncoverteb ral osteophytes with mild right foraminal narrowing. C6-7: Mild disc height loss with 3 mm central disc protrusion. Mild spinal canal stenosis. No signif icant foraminal narrowing. C7-T1: The disk is preserved height. No significant disk protrusion, spinal canal or foraminal selina nosis. Partially imaged thoracic spinal fusion hardware. IMPRESSION: C5-6: Mild disc height loss and 3 mm central disc protrusion. Mild spinal canal and mild right mar inal narrowing. C6-7: Mild disc height loss with 3 mm central disc protrusion. Mild spinal canal stenosis. RPTAT: AA .Minh Aguirre MD, MD Date Time Electronically viewed and signed by .Minh Aguirre MD, MD on 01/15/2017 17:40 .T/
[2017-01-15] MEDS: WARFARIN 5 MG TAB PO SCH (18:16)
--- NOTE | 2017-01-15 18:21 | CONS ---
Date/Time of Note Date/Time of Note DATE: 01/15/17 TIME: 18:20 Consult Date/Type/Reason Admit Date/Time Jan 12, 2017 at 10:35 Initial Consult Date 01/12/17 Type of Consultation: cardiology Ordering Provider: SAM CANTU DO Subjective CARDIOLOGY FOLLOW UP NOTE: Discussed with and staff. Rhythm strip was reviewed. Patient remained in sinus rhythm with no evidence of atrial fibrillation overnight. Her slurred speech has resolved now. Denies any chest pain or pressure or palpitation to me. she had HD today and c/o being weak objective: General: no acute distress HEENT: NC/AT. pupils are equal. round. NECK: NO JVD. no stridor. CV: RRR. systolic murmur; no gallop or rubs. PULM: no wheezing or rhonchi. GI: SOFT, NT, ND, no rebound or guarding Extremity: trace B/L LE edema. no clubbing. neuro: awake and alert, improved slurred speech Psych: calm and pleasant rectal: deferred : normal Objective Vital Signs Date Time Temp Pulse Resp B/P Pulse Ox O2 Delivery O2 Flow Rate FiO2 01/15/17 16:36 69 01/15/17 15:27 98.8 18 162/90 98 01/13/17 10:35 Room Air 01/12/17 10:27 2 Intake and Output 01/14/17 01/14/17 01/15/17 14:59 22:59 06:59 Intake Total 500 ml 200 ml Balance 500 ml 200 ml Results/Medications Result Diagram: 01/15/17 0710 01/15/17 0710 Results 24 hrs Laboratory Tests Test 01/14/17 22:20 01/15/17 07:10 01/15/17 08:59 01/15/17 13:17 Bedside Glucose 110 120 92 White Blood Count 9.8 Red Blood Count 3.74 L Hemoglobin 10.8 L Hematocrit 34.2 L Mean Corpuscular Volume 91.4 Mean Corpuscular Hemoglobin 28.9 L Mean Corpuscular Hemoglobin Concent 31.6 L Red Cell Distribution Width 14.3 Platelet Count 291 Mean Platelet Volume 8.0 Neutrophils % 65.6 Lymphocytes % 22.6 Monocytes % 6.5 Eosinophils % 4.3 Basophils % 0.7 Nucleated Red Blood Cells % 0.0 Neutrophils # (Manual) 6.5 Lymphocytes # 2.2 Monocytes # 0.6 Eosinophils # 0.4 Basophils # 0.1 Nucleated Red Blood Cells # 0.0 Sodium Level 136 Potassium Level 3.5 Chloride Level 102 Carbon Dioxide Level 24 Anion Gap 14 Blood Urea Nitrogen 39 H Creatinine 3.75 H Glucose Level 109 Calcium Level 9.0 Phosphorus Level 5.0 H Magnesium Level 2.0 Test 01/15/17 18:14 Bedside Glucose 148 Medications Current Medications Amlodipine Besylate (Norvasc) 2.5 mg DAILY PO Last administered on 01/15/17 08: 16; Admin Dose 2.5 MG; Start 01/13/17 at 09:00 Aspirin (Aspirin) 162 mg DAILY PO Last administered on 01/15/17 08:16; Admin Dose 162 MG; Start 01/13/17 at 09:00 Atorvastatin Calcium (Lipitor) 80 mg QHS PO Last administered on 01/14/17 21:51 ; Admin Dose 80 MG; Start 01/12/17 at 21:00 Hydralazine HCl (Apresoline) 50 mg TID PO Last administered on 01/15/17 13:25; Admin Dose 50 MG; Start 01/12/17 at 13:00 Metoclopramide HCl (Reglan) 5 mg BID PO Last administered on 01/15/17 09:05; Admin Dose 5 MG; Start 01/12/17 at 21:00 Metoprolol Tartrate (Lopressor) 100 mg BID PO Last administered on 01/15/17 08: 17; Admin Dose 100 MG; Start 01/12/17 at 21:00 Pantoprazole (Protonix Tab) 40 mg DAILY@06 PO Last administered on 01/15/17 05: 00; Admin Dose 40 MG; Start 01/13/17 at 06:00 Sertraline HCl (Zoloft) 50 mg DAILY PO Last administered on 01/15/17 09:05; Admin Dose 50 MG; Start 01/13/17 at 09:00 Tolterodine Tartrate (Detrol) 2 mg BID PO Last administered on 01/15/17 08:16; Admin Dose 2 MG; Start 01/12/17 at 21:00 Diagnostic Test (Pha) (Accu-Chek) 1 ea 02 XX ; Start 01/13/17 at 02:00 Warfarin Sodium (Coumadin) 5 mg DAILY@17 PO Last administered on 01/14/17 17:05 ; Admin Dose 5 MG; Start 01/12/17 at 17:00 Miscellaneous Information 1 ea NOTE XX ; Start 01/12/17 at 13:00 Glucose (Glutose) 15 gm Q15M PRN PO DECREASED GLUCOSE; Start 01/12/17 at 13:00 Glucose (Glutose) 22.5 gm Q15M PRN PO DECREASED GLUCOSE; Start 01/12/17 at 13:00 Dextrose (D50w Syringe) 25 ml Q15M PRN IV DECREASED GLUCOSE Last administered on 01/13/17 04:53; Admin Dose 25 ML; Start 01/12/17 at 13:00 Dextrose (D50w Syringe) 50 ml Q15M PRN IV DECREASED GLUCOSE; Start 01/12/17 at 13:00 Glucagon (Glucagen) 1 mg Q15M PRN IM DECREASED GLUCOSE; Start 01/12/17 at 13:00 Glucose (Glutose) 15 gm Q15M PRN BUCCAL DECREASED GLUCOSE; Start 01/12/17 at 13: 00 Morphine Sulfate (morphine) 2 mg Q6 PRN IV pain Last administered on 01/15/17 16:09; Admin Dose 2 MG; Start 01/12/17 at 16:00 Valacyclovir HCl (Valtrex) 500 mg DAILY PO Last administered on 01/15/17 08:17 ; Admin Dose 500 MG; Start 01/14/17 at 09:00; Stop 01/18/17 at 09:01 Morphine Sulfate (morphine) 2 mg Q3H PRN IV PAIN LEVEL 6-10 Last administered on 01/15/17 10:20; Admin Dose 2 MG; Start 01/14/17 at 04:00 Bisacodyl (Dulcolax Supp) 10 mg Q24H PRN [place] CONSTIPATION; Start 01/15/17 at 09: 30 Docusate Sodium (Colace) 100 mg QHS PRN PO CONSTIPATION; Start 01/15/17 at 09:30 Lactulose (Enulose) 20 gm DAILY PRN PO CONSTIPATION; Start 01/15/17 at 09:30 Senna (Senokot) 1 tab DAILY PO Last administered on 01/15/17 10:20; Admin Dose 1 TAB; Start 01/15/17 at 09:30 Polyethylene Glycol (Miralax) 17 gm DAILY PO Last administered on 9/8/17at 10: 20; Admin Dose 17 GM; Start 01/15/17 at 09:30 Sodium Biphosphate/ Sodium Phosphate (Fleet Enema) 133 ml DAILY PRN [place] CONSTIPATION; Start 01/15/17 at 09:30 Assessment/Plan Chief Complaint/Hosp Course 1. Slurred speech:improved now. rule out cerebrovascular accident, possible transient ischemic attack. F/U with neurology rec. f/u on MRI echo recently done 2. End-stage renal disease. HD as per renal 3. Hypertension. Continue current blood pressure regimen. 4. History of chronic obstructive pulmonary disease. Continue medical management. 5. History of P afib. currently in NSR. CONT coumadin and adjust INR daily. 6. History of T7 paraplegia. Continue physical therapy. 7. Anemia. defer to IM 8. Mineral bone disorder. We will monitor calcium and phosphorus levels. 9. Dyslipidemia. Continue statin therapy. 10. Diabetes. Continue Accu-Cheks and insulin sliding scale. Thank you for this referral I will continue to follow along with you. TAMERA BAILEY MD [facility] Problems: TAMERA BAILEY MD Jan 15, 2017 18:21
[2017-01-15] MEDS: ATORVASTATIN 80 MG TAB PO SCH (21:38)
[2017-01-16] VITALS (11 sets, daily range): BP systolic 104–199; BP diastolic 56–92; PULSE 67–72; RESP 18–20
[2017-01-16] MEDS ORDERED: AMLODIPINE 10 MG TAB PO ONE (01:30)
[2017-01-16] MEDS: ACCU-CHEK XX SCH (01:45)
[2017-01-16] MEDS: PANTOPRAZOLE (EC) 40 MG TAB PO SCH (06:27)
[2017-01-16 07:38] LABS: INR 2.09; PROTIME 23.7 Sec (12.2-14.2); PT RATIO 1.9
[2017-01-16] MEDS: INSULIN ASPART [NOVOLOG] 3 ML PEN SC SCH ×4 (07:55→20:51)
[2017-01-16] MEDS: TOLTERODINE 2 MG TAB PO SCH ×2 (08:16→20:31)
[2017-01-16] MEDS: REPAGLINIDE 1 MG TAB PO SCH ×3 (08:16→17:56)
[2017-01-16] MEDS: ASPIRIN 81 MG TAB PO SCH (08:17)
[2017-01-16] MEDS: SENNA TAB PO SCH (08:17)
[2017-01-16] MEDS: SEVELAMER 800 MG TAB PO SCH ×3 (08:17→17:55)
[2017-01-16] MEDS: SERTRALINE 50 MG TAB PO SCH (08:18)
[2017-01-16] MEDS: METOCLOPRAMIDE 5 MG TAB PO SCH ×2 (08:18→20:31)
[2017-01-16] MEDS: VALACYCLOVIR 500 MG TAB PO SCH (08:18)
[2017-01-16] MEDS: POLYETHYLENE GLYCOL 17 GM PACKET PO SCH ×2 (08:19→20:34)
--- NOTE | 2017-01-16 08:28 | PN ---
Date/Time of Note Date/Time of Note DATE: 01/16/17 TIME: 08:25 Assessment/Plan VTE Prophylaxis VTE Prophylaxis Intervention: ambulation Lines/Catheters IV [facility] Type [facility] [place] Urinary Cath still in place: No Assessment/Plan Chief Complaint/Hosp Course 52 y/o female with history DM, ESRD, CAD, CVA, and recently started on Valtrex for Shingles. Per history, pt admitted for possible CVA/TIA and given ASA in ED. CT brain on arrival showed no acute bleed. CT abd/thoracic spine showed known previous T5-10 posterior rods/screws per pt done 10/05/2016 at [facility] for infection and had 2 weeks iv antibiotics post op. Called to evaluate regarding possible T/L spine osteo/diskitis and possible SI joint infection noted as well. Pt with worsening back pain and some recent chills but no fever. Pt requires max assistance with FWW since surgery. pmh/psx: per hpi/chart meds: see med recon ros: per hpi/chart Problems: Assessment/Plan impression mri brain negative for acute cva cspine mri shows no cord compression and/or severe stenosis Likely T7-8 and L5-S1 Osteo/diskitis Plan awaiting MRI T/L spine r/o osto/diskitis finalize recs once studies med/cards clearance for possible surgery peer Primary team Subjective 24 Hr Interval Summary Subjective hx not possible: other (S: NAD) Exam/Review of Systems Vital Signs Vitals Vital Signs Date Time Temp Pulse Resp B/P Pulse Ox O2 Delivery O2 Flow Rate FiO2 01/16/17 07:28 98.2 68 20 160/76 99 01/13/17 10:35 Room Air 01/12/17 10:27 2 Intake and Output 01/15/17 01/15/17 01/16/17 15:00 23:00 07:00 Intake Total 300 ml 200 ml Output Total 3300 ml Balance -3000 ml 200 ml Exam 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: other (MS: AAOX4 CN: PERRL M: FC x 4 , exam unchanged) Results Result Diagram: 01/15/17 0710 01/15/17 0710 Results 24 hrs Laboratory Tests Test 01/15/17 08:59 01/15/17 13:17 01/15/17 18:14 01/15/17 21:44 Bedside Glucose 120 92 148 134 Test 01/16/17 06:28 01/16/17 08:13 Prothrombin Time 23.7 H Prothrombin Time Ratio 1.9 INR International Normalized Ratio 2.09 Bedside Glucose 93 Medications Medications Current Medications Aspirin (Aspirin) 162 mg DAILY PO Last administered on 01/16/17 08:17; Admin Dose 162 MG; Start 01/13/17 at 09:00 Atorvastatin Calcium (Lipitor) 80 mg QHS PO Last administered on 01/15/17 21:38 ; Admin Dose 80 MG; Start 01/12/17 at 21:00 Metoclopramide HCl (Reglan) 5 mg BID PO Last administered on 01/16/17 08:18; Admin Dose 5 MG; Start 01/12/17 at 21:00 Metoprolol Tartrate (Lopressor) 100 mg BID PO Last administered on 01/15/17 21: 38; Admin Dose 100 MG; Start 01/12/17 at 21:00 Pantoprazole (Protonix Tab) 40 mg DAILY@06 PO Last administered on 01/16/17 06: 27; Admin Dose 40 MG; Start 01/13/17 at 06:00 Sertraline HCl (Zoloft) 50 mg DAILY PO Last administered on 01/16/17 08:18; Admin Dose 50 MG; Start 01/13/17 at 09:00 Tolterodine Tartrate (Detrol) 2 mg BID PO Last administered on 01/16/17 08:16; Admin Dose 2 MG; Start 01/12/17 at 21:00 Diagnostic Test (Pha) (Accu-Chek) 1 ea 02 XX ; Start 01/13/17 at 02:00 Warfarin Sodium (Coumadin) 5 mg DAILY@17 PO Last administered on 01/15/17 18:16 ; Admin Dose 5 MG; Start 01/12/17 at 17:00 Miscellaneous Information 1 ea NOTE XX ; Start 01/12/17 at 13:00 Glucose (Glutose) 15 gm Q15M PRN PO DECREASED GLUCOSE; Start 01/12/17 at 13:00 Glucose (Glutose) 22.5 gm Q15M PRN PO DECREASED GLUCOSE; Start 01/12/17 at 13:00 Dextrose (D50w Syringe) 25 ml Q15M PRN IV DECREASED GLUCOSE Last administered on 01/13/17 04:53; Admin Dose 25 ML; Start 01/12/17 at 13:00 Dextrose (D50w Syringe) 50 ml Q15M PRN IV DECREASED GLUCOSE; Start 01/12/17 at 13:00 Glucagon (Glucagen) 1 mg Q15M PRN IM DECREASED GLUCOSE; Start 01/12/17 at 13:00 Glucose (Glutose) 15 gm Q15M PRN BUCCAL DECREASED GLUCOSE; Start 01/12/17 at 13: 00 Morphine Sulfate (morphine) 2 mg Q6 PRN IV pain Last administered on 01/15/17 16:09; Admin Dose 2 MG; Start 01/12/17 at 16:00 Valacyclovir HCl (Valtrex) 500 mg DAILY PO Last administered on 01/16/17 08:18 ; Admin Dose 500 MG; Start 01/14/17 at 09:00; Stop 01/18/17 at 09:01 Morphine Sulfate (morphine) 2 mg Q3H PRN IV PAIN LEVEL 6-10 Last administered on 01/15/17 10:20; Admin Dose 2 MG; Start 01/14/17 at 04:00 Bisacodyl (Dulcolax Supp) 10 mg Q24H PRN [place] CONSTIPATION; Start 01/15/17 at 09: 30 Docusate Sodium (Colace) 100 mg QHS PRN PO CONSTIPATION; Start 01/15/17 at 09:30 Lactulose (Enulose) 20 gm DAILY PRN PO CONSTIPATION Last administered on 01:45; Admin Dose 20 GM; Start 01/15/17 at 09:30 Senna (Senokot) 1 tab DAILY PO Last administered on 01/16/17 08:17; Admin Dose 1 TAB; Start 01/15/17 at 09:30 Polyethylene Glycol (Miralax) 17 gm DAILY PO Last administered on 01/16/17 08: 19; Admin Dose 17 GM; Start 01/15/17 at 09:30 Sodium Biphosphate/ Sodium Phosphate (Fleet Enema) 133 ml DAILY PRN [place] CONSTIPATION; Start 01/15/17 at 09:30 Amlodipine Besylate (Norvasc) 10 mg DAILY PO ; Start 01/16/17 at 09:00 Hydralazine HCl (Apresoline) 75 mg TID PO ; Start 01/16/17 at 09:00 Clonidine (Catapres) 0.1 mg Q6H PRN PO ELEVATED SYSTOLIC BP Last administered on 01/16/17t 01:45; Admin Dose 0.1 MG; Start 01/16/17 at 01:30 ELANA BORGES NP Jan 16, 2017 08:28
[2017-01-16] MEDS: METOPROLOL 100 MG TAB PO SCH ×2 (08:37→20:34)
[2017-01-16] MEDS: AMLODIPINE 10 MG TAB PO SCH (08:38)
[2017-01-16] MEDS ORDERED: LUBIPROSTONE 8 MCG CAPSULE PO SCH ×2 (09:00→21:00)
--- NOTE | 2017-01-16 09:52 | CONS ---
Date/Time of Note Date/Time of Note DATE: 01/16/17 TIME: 09:51 Consult Date/Type/Reason Admit Date/Time Jan 12, 2017 at 10:35 Initial Consult Date 01/12/17 Type of Consultation: Neurology Reason for Consultation eval for slurred speech r/o CVA Ordering Provider: SAM CANTU DO Subjective remains stable overnight pending further MRI Spine imaging Objective Vital Signs Date Time Temp Pulse Resp B/P Pulse Ox O2 Delivery O2 Flow Rate FiO2 01/16/17 08:00 67 01/16/17 07:28 98.2 20 160/76 99 01/13/17 10:35 Room Air 01/12/17 10:27 2 Intake and Output 01/15/17 01/15/17 01/16/17 15:00 23:00 07:00 Intake Total 300 ml 200 ml Output Total 3300 ml Balance -3000 ml 200 ml Exam NEUROLOGIC: She is awake, alert, and oriented x2 with fluent speech. Cranial nerve examination is intact visual vargas bilaterally, pupils reactive from 3-2 mm bilaterally. Extraocular movements intact without nystagmus. Symmetrical face. Preserved facial strength and sensation. Tongue was in midline. Palate elevates symmetrically. Motor strength examination seemed to be preserved in upper extremities. Lower extremities are weaker proximally about 4-/5 . Deep tendon reflexes 2+ . No response to plantar stimulation bilaterally. Sensory examination is t no definite glove stocking distribution of numbness, nor sensory level. Coordination preserved on [id number] testing. No dysmetria or tremor. Results/Medications Result Diagram: 01/15/17 0710 01/15/17 0710 Results 24 hrs Laboratory Tests Test 01/15/17 13:17 01/15/17 18:14 01/15/17 21:44 01/16/17 06:28 Bedside Glucose 92 148 134 Prothrombin Time 23.7 H Prothrombin Time Ratio 1.9 INR International Normalized Ratio 2.09 Test 01/16/17 08:13 Bedside Glucose 93 Medications Current Medications Aspirin (Aspirin) 162 mg DAILY PO Last administered on 01/16/17 08:17; Admin Dose 162 MG; Start 01/13/17 at 09:00 Atorvastatin Calcium (Lipitor) 80 mg QHS PO Last administered on 01/15/17 21:38 ; Admin Dose 80 MG; Start 01/12/17 at 21:00 Metoclopramide HCl (Reglan) 5 mg BID PO Last administered on 01/16/17 08:18; Admin Dose 5 MG; Start 01/12/17 at 21:00 Metoprolol Tartrate (Lopressor) 100 mg BID PO Last administered on 01/16/17 08: 37; Admin Dose 100 MG; Start 01/12/17 at 21:00 Pantoprazole (Protonix Tab) 40 mg DAILY@06 PO Last administered on 01/16/17 06: 27; Admin Dose 40 MG; Start 01/13/17 at 06:00 Sertraline HCl (Zoloft) 50 mg DAILY PO Last administered on 01/16/17 08:18; Admin Dose 50 MG; Start 01/13/17 at 09:00 Tolterodine Tartrate (Detrol) 2 mg BID PO Last administered on 01/16/17 08:16; Admin Dose 2 MG; Start 01/12/17 at 21:00 Diagnostic Test (Pha) (Accu-Chek) 1 ea 02 XX ; Start 01/13/17 at 02:00 Warfarin Sodium (Coumadin) 5 mg DAILY@17 PO Last administered on 01/15/17 18:16 ; Admin Dose 5 MG; Start 01/12/17 at 17:00 Miscellaneous Information 1 ea NOTE XX ; Start 01/12/17 at 13:00 Glucose (Glutose) 15 gm Q15M PRN PO DECREASED GLUCOSE; Start 01/12/17 at 13:00 Glucose (Glutose) 22.5 gm Q15M PRN PO DECREASED GLUCOSE; Start 01/12/17 at 13:00 Dextrose (D50w Syringe) 25 ml Q15M PRN IV DECREASED GLUCOSE Last administered on 01/13/17 04:53; Admin Dose 25 ML; Start 01/12/17 at 13:00 Dextrose (D50w Syringe) 50 ml Q15M PRN IV DECREASED GLUCOSE; Start 01/12/17 at 13:00 Glucagon (Glucagen) 1 mg Q15M PRN IM DECREASED GLUCOSE; Start 01/12/17 at 13:00 Glucose (Glutose) 15 gm Q15M PRN BUCCAL DECREASED GLUCOSE; Start 01/12/17 at 13: 00 Morphine Sulfate (morphine) 2 mg Q6 PRN IV pain Last administered on 01/15/17 16:09; Admin Dose 2 MG; Start 01/12/17 at 16:00 Valacyclovir HCl (Valtrex) 500 mg DAILY PO Last administered on 01/16/17 08:18 ; Admin Dose 500 MG; Start 01/14/17 at 09:00; Stop 01/18/17 at 09:01 Morphine Sulfate (morphine) 2 mg Q3H PRN IV PAIN LEVEL 6-10 Last administered on 01/15/17 10:20; Admin Dose 2 MG; Start 01/14/17 at 04:00 Bisacodyl (Dulcolax Supp) 10 mg Q24H PRN [place] CONSTIPATION; Start 01/15/17 at 09: 30 Docusate Sodium (Colace) 100 mg QHS PRN PO CONSTIPATION; Start 01/15/17 at 09:30 Lactulose (Enulose) 20 gm DAILY PRN PO CONSTIPATION Last administered on 01:45; Admin Dose 20 GM; Start 01/15/17 at 09:30 Senna (Senokot) 1 tab DAILY PO Last administered on 01/16/17 08:17; Admin Dose 1 TAB; Start 01/15/17 at 09:30 Polyethylene Glycol (Miralax) 17 gm DAILY PO Last administered on 01/16/17 08: 19; Admin Dose 17 GM; Start 01/15/17 at 09:30 Sodium Biphosphate/ Sodium Phosphate (Fleet Enema) 133 ml DAILY PRN [place] CONSTIPATION; Start 01/15/17 at 09:30 Amlodipine Besylate (Norvasc) 10 mg DAILY PO Last administered on 01/16/17 08: 38; Admin Dose 10 MG; Start 01/16/17 at 09:00 Hydralazine HCl (Apresoline) 75 mg TID PO Last administered on 01/16/17 08:38; Admin Dose 75 MG; Start 01/16/17 at 09:00 Clonidine (Catapres) 0.1 mg Q6H PRN PO ELEVATED SYSTOLIC BP Last administered on 01/16/17 01:45; Admin Dose 0.1 MG; Start 01/16/17 at 01:30 Lubiprostone (Amitiza) 16 mcg BID PO ; Start 01/16/17 at 09:00 Assessment/Plan Chief Complaint/Hosp Course 51 yo with old left basal ganglia infarct, CT T Spine T5-T10 fusion concerning for OM. Maintain normotensive BP, continue with ASA and high intensity statin. MRI Brain, Cervical Spine imaging was done- no acute process, no acute CVA or cord pathology in Cervical Spine pending MRI Thoracic and Lumbar spine Neurosurgery consultation if spine imaging concerning for OM. Problems: AMADOU ROBERTSON MD Jan 16, 2017 09:52
--- NOTE | 2017-01-16 11:59 | PN ---
DATE: 01/16/2017 SUBJECTIVE DATA: The patient, last night, was noted to be hypotensive. The patient's blood pressure medications were adjusted with improvement in blood pressure. Patient's MRI of the brain showed no acute findings. And MRI of the C-spine was reviewed. The patient also continues to complain of some abdominal pain that she attributes to constipation, has not had a bowel movement yet. No other events noted. OBJECTIVE DATA: VITAL SIGNS: Blood pressure 160/76, respirations 20, pulse 68, temperature 98.2. HEENT: Head is normocephalic. NECK: Supple. HEART: Regular rate. LUNGS: Show diminished breath sounds at the base. ABDOMEN: Soft. Nontender to palpation. No rebound or guarding. EXTREMITIES: Negative for clubbing, cyanosis. No edema. DERMATOLOGIC: Clean. No rashes. MUSCULOSKELETAL: No joint effusion. NEUROLOGIC: No change in exam. MEDICATIONS: Reviewed. LABORATORY AND DIAGNOSTIC DATA: Shows a white count 9.8, hemoglobin 10.8, hematocrit 34.2, platelet count 291. ASSESSMENT AND PLAN: 1. Possible transient ischemic attack. The patient has been ruled out for acute cerebrovascular accident. MRI of the brain was negative. Will continue current medical management. 2. Hypertension. Blood pressures were elevated. Blood pressure medications were adjusted. Possible component could be pain due to possible fecal impaction. We will continue current blood pressure regimen. Treat underlying constipation. Monitor closely. 3. Fecal impaction. Patient has not had a bowel movement. KUB was reviewed. Will place a Gastroenterology consult. Continue current bowel regimen. We will add Amitiza. 4. Paroxysmal atrial fibrillation. Currently sinus rhythm. Patient is on Coumadin. Will continue to monitor INR, being adjusted by Cardiology. 5. End-stage renal disease. Will plan for hemodialysis tomorrow. 6. Possible osteomyelitis T7, T8. Patient is pending MRI of the thoracic spine. 7. Anemia. Monitor H and H levels. Continue Epogen. 8. History of T7 partial paraplegia. Continue physical therapy. 9. Mineral bone disorder. Monitor calcium and phosphorus levels. 10. Continue statin therapy. 11. Diabetes. Continue current insulin regimen. 12. Chronic pain syndrome. Continue current pain regimen. 13. Gastrointestinal and deep venous thrombosis prophylaxes. Continue proton pump inhibitor and Coumadin. 14. Shingles. The patient is completing a course of Valtrex. Dictated By: Buck Seals DO /saul/aurelia /Document#: [id number]
--- NOTE | 2017-01-16 15:35 | CONS ---
DATE OF ADMISSION: 01/12/2017 DATE OF CONSULTATION: 01/16/2017 REFERRING PHYSICIAN: Buck Seals DO REASON FOR CONSULTATION: Fecal impaction. HISTORICAL EVENTS: A 51-year-old female with history of end- stage renal disease, CVA, diabetes mellitus, diabetic neuropathy, shingles, coronary artery disease, hypertension, and dyslipidemia. She was admitted to the hospital for slurred speech. She was also found to have a shingles-type rash and was started on Valtrex. The diagnosis of TIA was entertained. She had a CAT scan of the brain, which was negative. Neurology consult was called. The patient is on aspirin and high dose of Lipitor 80 mg. A GI consult was called in because patient has not had a good bowel movement for last 2 weeks. KUB revealed a fecal impaction. She never had a colonoscopy in the past. She has been losing weight, but that is a voluntary weight loss. No GI bleeding. No nausea. No vomiting. No chest pain. No shortness of breath. PAST MEDICAL HISTORY: As described. Besides, she has T7 paraplegia, and also anxiety disorder and possible osteomyelitis of the spine. PAST SURGICAL HISTORY: Thoracic spine laminectomy, epidural abscesses drainage, and PermCath. FAMILY HISTORY: Nothing contributory. SOCIAL HISTORY: Does not drink or smoke. MEDICATION: Medications all reviewed. REVIEW OF SYSTEMS: Otherwise negative. PHYSICAL EXAMINATION: GENERAL APPEARANCE: Overweight, not in distress. VITAL SIGNS: Stable. HEENT: Unremarkable. HEART: No murmur, gallop, or click. LUNGS: Clear. ABDOMEN: Benign. EXTREMITIES: No edema. NEUROLOGIC: CUSTODIAN as per the neurologist. LABORATORY: Showed a BUN of 39, creatinine 4.24. Mildly abnormal LFT. Hematocrit 33 and 34. IMPRESSION: 1. Fecal impaction, compounded by pain medication. 2. Possible transient ischemic attack, for which she is on aspirin and Lipitor. 3. Hypertension. 4. Atrial fibrillation, for which patient is on Coumadin. 5. End-stage renal disease, for which patient is on dialysis. 6. Possible osteomyelitis, T7-8. 7. T7 paraplegia. 8. Anemia related to probable chronic disease. 9. Diabetes mellitus. 10. Chronic pain syndrome. PLAN: At this point, increase the dose of Amitiza. She is on 60 mcg and we will change to 24 mcg b.i.d. If Relistor tablet is available, we will start her on Relistor tablet. I will talk to the pharmacy. We will also give her MiraLAX 3 times a day for the next 2 days. The patient is not a candidate for magnesium citrate and Fleet enema, given history of renal failure. In the future, she may need a colonoscopy as an outpatient. Dictated By: Damian Flores MD /saul/lin /Document#: [id number]
[2017-01-16] MEDS ORDERED: VANCOMYCIN IV PER PHARMACY XX SCH (17:00)
[2017-01-16] MEDS ORDERED: CEFTRIAXONE 1 GM/50 ML (PMX) 50 ML IVPB SCH (17:00)
[2017-01-16] MEDS: WARFARIN 5 MG TAB PO SCH (17:56)
--- NOTE | 2017-01-16 18:47 | PN ---
DATE: 01/16/2017 SUBJECTIVE DATA: No acute changes overnight. The patient is awake, looks comfortable. No fevers. LABORATORY DATA: No labs this morning. INDWELLING: Right chest PermCath. PHYSICAL EXAMINATION: GENERAL: This is obese, well developed, middle-aged woman, in no distress. HEENT: Head atraumatic, normocephalic. NECK: Supple. CHEST: Rise symmetrical. Breath sounds clear. Diminished at the bases. HEART: S1, S2. ABDOMEN: Soft, bowel sounds present. EXTREMITIES: Without cyanosis. ASSESSMENT: 1. L5-S1, T7 and T8 diskitis and osteomyelitis with questionable abscess versus phlegmon as per CT of the abdomen and thoracic spine, pending spinal MRI, pending CT guided needle aspiration. 2. End-stage renal disease, hemodialysis dependent. 3. Status post shingles. 4. Diabetes. 5. Anemia. 6. History of T7 paraplegia, status post surgery. PLAN: The patient was admitted on January 12. CT-guided needle aspiration of the spine still pending. She has evidence of discitis, osteomyelitis, and possible abscess per CT of the spine. Neuro surgery on case pending MRI of the spine. We are going to start her on vancomycin and Rocephin. Await for final workup. Discussed with Dr. Mahmood. Dictated By: Nini Velázquez NP /saul/jenelle /Document#: [id number]
[2017-01-16] MEDS ORDERED: VANCOMYCIN 1.5 GM in SOD CHLORIDE 0.9% 250 ML IVPB SCH (20:00)
[2017-01-16] MEDS: ATORVASTATIN 80 MG TAB PO SCH (20:31)
[2017-01-17] VITALS (19 sets, daily range): BP systolic 103–150; BP diastolic 51–77; PULSE 68–78; RESP 17–20
[2017-01-17] MEDS: ACCU-CHEK XX SCH (02:49)
[2017-01-17] MEDS: PANTOPRAZOLE (EC) 40 MG TAB PO SCH (05:00)
[2017-01-17 07:01] LABS: BASOPHIL # 0.1 10^3/ul (0.0-0.1); BASOPHILS % 0.7 % (0.0-2.0); EOSINOPHILS # 0.3 10^3/ul (0.0-0.5); EOSINOPHILS % 2.8 % (0.0-7.0); HEMATOCRIT 32.3 % (37.0-47.0); HEMOGLOBIN 10.4 g/dl (12.0-16.0); LYMPHOCYTES # 2.9 10^3/ul (0.8-2.9); LYMPHOCYTES % 27.3 % (15.0-51.0); MEAN CORPUSCULAR HEMOGLOBIN 30.2 pg (29.0-33.0); MEAN CORPUSCULAR HGB CONC 32.2 g/dl (32.0-37.0); MEAN CORPUSCULAR VOLUME 93.9 fl (82.0-101.0); MEAN PLATELET VOLUME 8.1 fl (7.4-10.4); MONOCYTES % 9.1 % (0.0-11.0); NEUTROPHILS % 59.7 % (39.0-77.0); PLATELET COUNT 316 10^3/UL (140-415); RED BLOOD COUNT 3.44 10^6/ul (4.20-5.40); RED CELL DISTRIBUTION WIDTH 14.8 % (11.5-14.5); WHITE BLOOD COUNT 10.5 10^3/ul (4.8-10.8)
[2017-01-17 07:17] LABS: CALCIUM 8.7 mg/dl (8.4-10.2); CREATININE 4.2 mg/dl (0.44-1.00); MAGNESIUM 2.2 mg/dl (1.7-2.5); PHOSPHORUS 4.5 mg/dl (2.5-4.9)
[2017-01-17] MEDS: INSULIN ASPART [NOVOLOG] 3 ML PEN SC SCH ×4 (07:55→20:29)
[2017-01-17] MEDS: ASPIRIN 81 MG TAB PO SCH (08:50)
[2017-01-17] MEDS: METOCLOPRAMIDE 5 MG TAB PO SCH ×2 (08:51→20:22)
[2017-01-17] MEDS: SENNA TAB PO SCH (08:51)
[2017-01-17] MEDS: TOLTERODINE 2 MG TAB PO SCH ×2 (08:54→20:23)
[2017-01-17] MEDS: SEVELAMER 800 MG TAB PO SCH ×3 (08:54→16:52)
[2017-01-17] MEDS: VALACYCLOVIR 500 MG TAB PO SCH (08:54)
[2017-01-17] MEDS: REPAGLINIDE 1 MG TAB PO SCH ×3 (08:54→16:53)
[2017-01-17] MEDS: SERTRALINE 50 MG TAB PO SCH (08:55)
[2017-01-17] MEDS: POLYETHYLENE GLYCOL 17 GM PACKET PO SCH ×2 (08:55→20:21)
[2017-01-17] MEDS: METOPROLOL 100 MG TAB PO SCH ×2 (08:56→20:22)
[2017-01-17] MEDS: AMLODIPINE 10 MG TAB PO SCH (08:56)
[2017-01-17] MEDS: LUBIPROSTONE 24 MCG CAP PO SCH ×2 (08:59→20:21)
--- NOTE | 2017-01-17 08:59 | PN ---
DATE: 01/17/2017 SUBJECTIVE DATA: The patient is stable. Had a bowel movement yesterday. Continues to feel constipated. The patient was started on antibiotics yesterday. No other events noted. OBJECTIVE DATA: VITAL SIGNS: Blood pressure is 136/67, respirations 17, pulse 73, temperature 98.5. HEENT: Head is normocephalic. NECK: Supple. HEART: Regular rate. LUNGS: Diminished breath sounds at the base. ABDOMEN: Soft, nontender to palpation. No rebound or guarding. EXTREMITIES: Negative for clubbing, cyanosis. No edema. DERMATOLOGIC: Clean. No rashes. MUSCULOSKELETAL: No joint effusion. NEUROLOGIC: No change in exam. MEDICATIONS: Reviewed. LABORATORY AND DIAGNOSTIC DATA: White count 10.5, hemoglobin 10.4, hematocrit 32.3, platelet count is 316. Sodium 136, potassium 4.1, BUN 39, creatinine 4.20. ASSESSMENT AND PLAN: 1. Possible transient ischemic attack. The patient is ruled out for acute cerebrovascular accident. MRI of the brain was negative. Continue to monitor. Follow up with Neurology. 2. Hypertension. Blood pressure is improved. Continue current blood pressure regimen. 3. History of fecal impaction, constipation. Continue current bowel regimen. Follow up with gastrointestinal. 4. Paroxysmal atrial fibrillation. Currently sinus rhythm. The patient is on Coumadin. Monitor INR. 5. End-stage renal disease. Plan for hemodialysis tomorrow. 6. Possible osteomyelitis, T7, T8, the patient's MRI of the spine is pending was recently canceled. Will follow up neurosurgery. Currently on antibiotics. Follow up Infectious Disease. 7. Anemia. Monitor H and H levels. Continue Epogen. 8. History of T7 partial paraplegia. Continue physical therapy. 9. Mineral bone disorder. Monitor calcium and phosphorus levels. 10. Diabetes. Continue current insulin regimen. 11. Chronic pain syndrome. Continue current pain regimen. 12. Gastrointestinal and deep venous thrombosis prophylaxis. Continue PPI and Coumadin. 13. Shingles. The patient is completing course of Valtrex. 14. Gastrointestinal and deep venous thrombosis prophylaxis. Continue PPI and Coumadin. Dictated By: Buck Seals DO /saul/monica /Document#: [id number]
--- NOTE | 2017-01-17 15:11 | CONS ---
Date/Time of Note Date/Time of Note DATE: 01/17/17 TIME: 15:10 Assessment/Plan Assessment/Plan Additional Assessment/Plan IMPRESSION: 1. Fecal impaction, compounded by pain medication. 2. Possible transient ischemic attack, for which she is on aspirin and Lipitor. 3. Hypertension. 4. Atrial fibrillation, for which patient is on Coumadin. 5. End-stage renal disease, for which patient is on dialysis. 6. Possible osteomyelitis, T7-8. 7. T7 paraplegia. 8. Anemia related to probable chronic disease. 9. Diabetes mellitus. 10. Chronic pain syndrome. Plan Continue with Amitiza and MiraLAX Consultation Date/Type/Reason Admit Date/Time Jan 12, 2017 at 10:35 Initial Consult Date 01/12/17 Type of Consultation: Neurology Referring Provider: SAM CANTU DO 24 HR Interval Summary Free Text/Dictation Finally patient had a good bowel movements Exam/Review of Systems Vital Signs Vitals Vital Signs Date Time Temp Pulse Resp B/P Pulse Ox O2 Delivery O2 Flow Rate FiO2 01/17/17 12:20 78 16 01/17/17 11:52 98.0 150/72 94 01/13/17 10:35 Room Air Intake and Output 01/16/17 01/16/17 01/17/17 15:00 23:00 07:00 Intake Total 700 ml 400 ml Balance 700 ml 400 ml Exam Constitutional: alert, oriented, well developed Psych: nl mood/affect, no complaints Head: atraumatic, normocephalic Eyes: EOMI, PERRL, nl conjunctiva, nl lids, nl sclera ENMT: nl external ears & nose, nl lips & teeth, nl nasal mucosa & septum Neck: non-tender, supple Respiratory: clear to auscultation, normal air movement Cardiovascular: nl pulses, regular rate and rhythm Gastrointestinal: nl liver, spleen, non-tender, soft Musculoskeletal: nl extremities to inspection, nl gait and stance Extremities: normal pulses 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: 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, nl mental status, nl speech, nl strength Skin: nl turgor, No rash or lesions Lymph: nl lymph nodes Results Result Diagram: 01/17/17 0607 01/17/17 0607 Results 24 hrs Laboratory Tests Test 01/16/17 17:12 01/16/17 20:39 01/17/17 02:25 01/17/17 06:07 Bedside Glucose 113 235 H 165 White Blood Count 10.5 Red Blood Count 3.44 L Hemoglobin 10.4 L Hematocrit 32.3 L Mean Corpuscular Volume 93.9 Mean Corpuscular Hemoglobin 30.2 Mean Corpuscular Hemoglobin Concent 32.2 Red Cell Distribution Width 14.8 H Platelet Count 316 Mean Platelet Volume 8.1 Neutrophils % 59.7 Lymphocytes % 27.3 Monocytes % 9.1 Eosinophils % 2.8 Basophils % 0.7 Nucleated Red Blood Cells % 0.0 Neutrophils # (Manual) 6.3 Lymphocytes # 2.9 Monocytes # 1.0 H Eosinophils # 0.3 Basophils # 0.1 Nucleated Red Blood Cells # 0.0 Sodium Level 136 Potassium Level 4.0 Chloride Level 101 Carbon Dioxide Level 27 Anion Gap 12 Blood Urea Nitrogen 39 H Creatinine 4.20 H Glucose Level 60 #L Calcium Level 8.7 Phosphorus Level 4.5 Magnesium Level 2.2 Test 01/17/17 08:12 01/17/17 12:00 Bedside Glucose 81 226 H Medications Medications Current Medications Aspirin (Aspirin) 162 mg DAILY PO Last administered on 01/17/17 08:50; Admin Dose 162 MG; Start 01/13/17 at 09:00 Atorvastatin Calcium (Lipitor) 80 mg QHS PO Last administered on 01/16/17 20:31 ; Admin Dose 80 MG; Start 01/12/17 at 21:00 Metoclopramide HCl (Reglan) 5 mg BID PO Last administered on 01/17/17 08:51; Admin Dose 5 MG; Start 01/12/17 at 21:00 Metoprolol Tartrate (Lopressor) 100 mg BID PO Last administered on 01/17/17 08 :56; Admin Dose 100 MG; Start 01/12/17 at 21:00 Pantoprazole (Protonix Tab) 40 mg DAILY@06 PO Last administered on 01/17/17 05 :00; Admin Dose 40 MG; Start 01/13/17 at 06:00 Sertraline HCl (Zoloft) 50 mg DAILY PO Last administered on 01/17/17 08:55; Admin Dose 50 MG; Start 01/13/17 at 09:00 Tolterodine Tartrate (Detrol) 2 mg BID PO Last administered on 01/17/17 08:54 ; Admin Dose 2 MG; Start 01/12/17 at 21:00 Diagnostic Test (Pha) (Accu-Chek) 1 ea 02 XX Last administered on 01/17/17 02: 49; Admin Dose 1 EA; Start 01/13/17 at 02:00 Warfarin Sodium (Coumadin) 5 mg DAILY@17 PO Last administered on 01/16/17 17:56 ; Admin Dose 5 MG; Start 01/12/17 at 17:00 Miscellaneous Information 1 ea NOTE XX ; Start 01/12/17 at 13:00 Glucose (Glutose) 15 gm Q15M PRN PO DECREASED GLUCOSE; Start 01/12/17 at 13:00 Glucose (Glutose) 22.5 gm Q15M PRN PO DECREASED GLUCOSE; Start 01/12/17 at 13:00 Dextrose (D50w Syringe) 25 ml Q15M PRN IV DECREASED GLUCOSE Last administered on 01/13/17 04:53; Admin Dose 25 ML; Start 01/12/17 at 13:00 Dextrose (D50w Syringe) 50 ml Q15M PRN IV DECREASED GLUCOSE; Start 01/12/17 at 13:00 Glucagon (Glucagen) 1 mg Q15M PRN IM DECREASED GLUCOSE; Start 01/12/17 at 13:00 Glucose (Glutose) 15 gm Q15M PRN BUCCAL DECREASED GLUCOSE; Start 01/12/17 at 13: 00 Morphine Sulfate (morphine) 2 mg Q6 PRN IV pain Last administered on 01/15/17 16:09; Admin Dose 2 MG; Start 01/12/17 at 16:00 Valacyclovir HCl (Valtrex) 500 mg DAILY PO Last administered on 01/17/17 08:54 ; Admin Dose 500 MG; Start 01/14/17 at 09:00; Stop 01/18/17 at 09:01 Morphine Sulfate (morphine) 2 mg Q3H PRN IV PAIN LEVEL 6-10 Last administered on 01/15/17 10:20; Admin Dose 2 MG; Start 01/14/17 at 04:00 Bisacodyl (Dulcolax Supp) 10 mg Q24H PRN [place] CONSTIPATION; Start 01/15/17 at 09: 30 Docusate Sodium (Colace) 100 mg QHS PRN PO CONSTIPATION; Start 01/15/17 at 09:30 Lactulose (Enulose) 20 gm DAILY PRN PO CONSTIPATION Last administered on 01:45; Admin Dose 20 GM; Start 01/15/17 at 09:30 Senna (Senokot) 1 tab DAILY PO Last administered on 01/17/17 08:51; Admin Dose 1 TAB; Start 01/15/17 at 09:30 Sodium Biphosphate/ Sodium Phosphate (Fleet Enema) 133 ml DAILY PRN [place] CONSTIPATION; Start 01/15/17 at 09:30 Amlodipine Besylate (Norvasc) 10 mg DAILY PO Last administered on 01/17/17 08: 56; Admin Dose 10 MG; Start 01/16/17 at 09:00 Hydralazine HCl (Apresoline) 75 mg TID PO Last administered on 01/17/17 08:57 ; Admin Dose 75 MG; Start 01/16/17 at 09:00 Clonidine (Catapres) 0.1 mg Q6H PRN PO ELEVATED SYSTOLIC BP Last administered on 01/16/17 01:45; Admin Dose 0.1 MG; Start 01/16/17 at 01:30 Polyethylene Glycol (Miralax) 17 gm BID PO Last administered on 01/17/17 08:55 ; Admin Dose 17 GM; Start 01/16/17 at 21:00 Lubiprostone 24 mcg 24 mcg BID PO Last administered on 01/17/17 08:59; Admin Dose 24 MCG; Start 01/17/17 at 09:00 Ceftriaxone Sodium (Rocephin) 50 ml @ 100 mls/hr Q24H IVPB ; Start 01/17/17 at 17:00 Miscellaneous Information (*Rx Drug Level Order Reminder*) RANDOM VANCOMYCIN LEVEL 9... ONCE ONCE XX ; Start 01/18/17 at 05:00; Stop 01/18/17 at 05:01 ELIESER REDDY MD Jan 17, 2017 15:11
[2017-01-17] MEDS: WARFARIN 5 MG TAB PO SCH (16:53)
[2017-01-17] MEDS: CEFTRIAXONE 2 GM/NS 50 ML IVPB SCH (17:00)
--- NOTE | 2017-01-17 21:39 | PN ---
DATE: 01/17/2017 SUBJECTIVE DATA: No acute changes. The patient is alert, feels better, looks comfortable. No fevers. Temperature 98.6, pulse 70, respirations 20, blood pressure 103/61, saturations 96 percent on room air. LABORATORY AND DIAGNOSTIC DATA: WBC 10.5, platelets 316, indwelling right chest Permacath. Antimicrobials: Vancomycin, Rocephin day #1. OBJECTIVE DATA: GENERAL: Well-developed, middle-aged, obese woman who is awake, in not distress. HEENT: Head is atraumatic, normocephalic. Sclerae anicteric. Buccal mucosa pink. NECK: Supple. CHEST: Chest rise is symmetrical. Breath sounds diminished at the bases. HEART: S1, S2. ABDOMEN: Soft, bowel sounds present. EXTREMITIES: Without cyanosis. ASSESSMENT AND PLAN: 1. Transient ischemic attack. 2. Spinal discitis with osteomyelitis and questionable abscess versus phlegmon as per CT of the abdomen and thoracic spine, started on broad spectrum antibiotics as CT guided needle aspiration biopsy was not done for 4 days. 3. End-stage renal disease, hemodialysis dependent. 4. Diabetes. 5. Anemia. 6. Fecal impaction. 7. C7 paraplegia status post surgical intervention. PLAN: The patient remains stable, covered with broad spectrum antibiotics. She is being followed by multiple consultants. Neurosurgery on case as well. Pending spinal MRI. Dictated By: Nini Velázquez NP /saul/ /Document#: [id number]
[2017-01-17] MEDS: ZOLPIDEM 5 MG TAB PO PRN (21:53)
[2017-01-17] MEDS: ATORVASTATIN 80 MG TAB PO SCH (21:53)
[2017-01-18] VITALS (12 sets, daily range): BP systolic 109–141; BP diastolic 56–72; PULSE 65–77; RESP 20
[2017-01-18] MEDS: ACCU-CHEK XX SCH (02:21)
[2017-01-18] MEDS: PANTOPRAZOLE (EC) 40 MG TAB PO SCH (05:31)
[2017-01-18 05:43] LABS: BASOPHIL # 0.1 10^3/ul (0.0-0.1); BASOPHILS % 0.8 % (0.0-2.0); EOSINOPHILS # 0.4 10^3/ul (0.0-0.5); EOSINOPHILS % 4.2 % (0.0-7.0); HEMATOCRIT 35.4 % (37.0-47.0); HEMOGLOBIN 10.5 g/dl (12.0-16.0); LYMPHOCYTES # 2.8 10^3/ul (0.8-2.9); LYMPHOCYTES % 27.7 % (15.0-51.0); MEAN CORPUSCULAR HEMOGLOBIN 28.5 pg (29.0-33.0); MEAN CORPUSCULAR HGB CONC 29.7 g/dl (32.0-37.0); MEAN CORPUSCULAR VOLUME 96.2 fl (82.0-101.0); MEAN PLATELET VOLUME 8.4 fl (7.4-10.4); MONOCYTE # 0.8 10^3/ul (0.3-0.9); NEUTROPHILS % 59.1 % (39.0-77.0); PLATELET COUNT 331 10^3/UL (140-415); RED BLOOD COUNT 3.68 10^6/ul (4.20-5.40); RED CELL DISTRIBUTION WIDTH 15.2 % (11.5-14.5); WHITE BLOOD COUNT 10.2 10^3/ul (4.8-10.8)
[2017-01-18 06:00] LABS: INR 2.39; PROTIME 26.4 Sec (12.2-14.2); PT RATIO 2.1
[2017-01-18 06:10] LABS: CALCIUM 8.9 mg/dl (8.4-10.2); CREATININE 3.79 mg/dl (0.44-1.00); MAGNESIUM 2.2 mg/dl (1.7-2.5); PHOSPHORUS 3.5 mg/dl (2.5-4.9); POTASSIUM 3.9 mmol/L (3.5-5.1)
[2017-01-18] MEDS: INSULIN ASPART [NOVOLOG] 3 ML PEN SC SCH ×4 (07:55→21:00)
[2017-01-18] MEDS: METOCLOPRAMIDE 5 MG TAB PO SCH ×2 (08:50→21:56)
[2017-01-18] MEDS: VALACYCLOVIR 500 MG TAB PO SCH (08:50)
[2017-01-18] MEDS: LUBIPROSTONE 24 MCG CAP PO SCH ×2 (08:51→21:57)
[2017-01-18] MEDS: ASPIRIN 81 MG TAB PO SCH (08:51)
[2017-01-18] MEDS: TOLTERODINE 2 MG TAB PO SCH ×2 (08:52→21:56)
[2017-01-18] MEDS: REPAGLINIDE 1 MG TAB PO SCH ×3 (08:52→17:20)
[2017-01-18] MEDS: SERTRALINE 50 MG TAB PO SCH (08:53)
[2017-01-18] MEDS: AMLODIPINE 10 MG TAB PO SCH (08:53)
[2017-01-18] MEDS: POLYETHYLENE GLYCOL 17 GM PACKET PO SCH ×2 (08:55→21:00)
[2017-01-18] MEDS: SENNA TAB PO SCH (08:55)
[2017-01-18] MEDS: METOPROLOL 100 MG TAB PO SCH ×2 (08:55→21:58)
[2017-01-18] MEDS: SEVELAMER 800 MG TAB PO SCH ×3 (09:01→17:19)
[2017-01-18 10:26] LABS: INR 2.15; PROTIME 24.2 Sec (12.2-14.2); PT RATIO 1.9
--- NOTE | 2017-01-18 13:30 | CONS ---
Date/Time of Note Date/Time of Note DATE: 01/18/17 TIME: 13:27 Assessment/Plan Assessment/Plan Chief Complaint/Hosp Course SUBJECTIVE DATA: No acute changes. The patient is alert, feels good, looks comfortable sitting in a chair. No fevers. Antimicrobials: Vancomycin, Rocephin OBJECTIVE DATA: GENERAL: Well-developed, middle-aged, obese woman who is awake, in not distress. HEENT: Head is atraumatic, normocephalic. Sclerae anicteric. Buccal mucosa pink. NECK: Supple. CHEST: Chest rise is symmetrical. Breath sounds diminished at the bases. HEART: S1, S2. ABDOMEN: Soft, bowel sounds present. EXTREMITIES: Without cyanosis. ASSESSMENT AND PLAN: 1. T/p transient ischemic attack. 2. Spinal discitis with osteomyelitis and questionable abscess versus phlegmon as per CT of the abdomen and thoracic spine, started on broad spectrum antibiotics as CT guided needle aspiration biopsy was not done for 4 days. 3. End-stage renal disease, hemodialysis dependent. 4. Diabetes. 5. Anemia. 6. Fecal impaction. 7. C7 paraplegia status post surgical intervention. PLAN: The patient remains stable, covered with broad spectrum antibiotics. Neurosurgery on case as well. Pending spinal MRI. DW staff Problems: Consultation Date/Type/Reason Admit Date/Time Jan 12, 2017 at 10:35 Initial Consult Date 01/12/17 Type of Consultation: ID Referring Provider: SAM CANTU DO Exam/Review of Systems Vital Signs Vitals Vital Signs Date Time Temp Pulse Resp B/P Pulse Ox O2 Delivery O2 Flow Rate FiO2 01/18/17 12:55 77 01/18/17 11:22 98.6 20 138/66 96 Intake and Output 01/17/17 01/17/17 01/18/17 15:00 23:00 07:00 Intake Total 500 ml 400 ml 500 ml Output Total 3500 ml Balance -3000 ml 400 ml 500 ml Results Result Diagram: 01/18/17 0503 01/18/17 0503 Results 24 hrs Laboratory Tests Test 01/17/17 16:57 01/17/17 20:28 01/18/17 01:22 01/18/17 05:03 Bedside Glucose 147 153 101 White Blood Count 10.2 Red Blood Count 3.68 L Hemoglobin 10.5 L Hematocrit 35.4 L Mean Corpuscular Volume 96.2 Mean Corpuscular Hemoglobin 28.5 L Mean Corpuscular Hemoglobin Concent 29.7 L Red Cell Distribution Width 15.2 H Platelet Count 331 Mean Platelet Volume 8.4 Neutrophils % 59.1 Lymphocytes % 27.7 Monocytes % 8.0 Eosinophils % 4.2 Basophils % 0.8 Nucleated Red Blood Cells % 0.0 Neutrophils # (Manual) 6.0 Lymphocytes # 2.8 Monocytes # 0.8 Eosinophils # 0.4 Basophils # 0.1 Nucleated Red Blood Cells # 0.0 Prothrombin Time 26.4 H Prothrombin Time Ratio 2.1 INR International Normalized Ratio 2.39 Sodium Level 138 Potassium Level 3.9 Chloride Level 104 Carbon Dioxide Level 27 Anion Gap 11 Blood Urea Nitrogen 30 H Creatinine 3.79 H Glucose Level 85 Calcium Level 8.9 Phosphorus Level 3.5 Magnesium Level 2.2 Random Vancomycin Level 19.2 Test 01/18/17 08:33 01/18/17 09:48 01/18/17 11:48 Bedside Glucose 87 147 Prothrombin Time 24.2 H Prothrombin Time Ratio 1.9 INR International Normalized Ratio 2.15 Medications Medications Current Medications Aspirin (Aspirin) 162 mg DAILY PO Last administered on 01/18/17 08:51; Admin Dose 162 MG; Start 01/13/17 at 09:00 Atorvastatin Calcium (Lipitor) 80 mg QHS PO Last administered on 01/17/17 21: 53; Admin Dose 80 MG; Start 01/12/17 at 21:00 Metoclopramide HCl (Reglan) 5 mg BID PO Last administered on 01/18/17 08:50; Admin Dose 5 MG; Start 01/12/17 at 21:00 Metoprolol Tartrate (Lopressor) 100 mg BID PO Last administered on 01/18/17 08 :55; Admin Dose 100 MG; Start 01/12/17 at 21:00 Pantoprazole (Protonix Tab) 40 mg DAILY@06 PO Last administered on 01/18/17 05 :31; Admin Dose 40 MG; Start 01/13/17 at 06:00 Sertraline HCl (Zoloft) 50 mg DAILY PO Last administered on 01/18/17 08:53; Admin Dose 50 MG; Start 01/13/17 at 09:00 Tolterodine Tartrate (Detrol) 2 mg BID PO Last administered on 01/18/17 08:52 ; Admin Dose 2 MG; Start 01/12/17 at 21:00 Diagnostic Test (Pha) (Accu-Chek) 1 ea 02 XX Last administered on 01/18/17 02: 21; Admin Dose 1 EA; Start 01/13/17 at 02:00 Warfarin Sodium (Coumadin) 5 mg DAILY@17 PO Last administered on 01/17/17 16: 53; Admin Dose 5 MG; Start 01/12/17 at 17:00 Miscellaneous Information 1 ea NOTE XX ; Start 01/12/17 at 13:00 Glucose (Glutose) 15 gm Q15M PRN PO DECREASED GLUCOSE; Start 01/12/17 at 13:00 Glucose (Glutose) 22.5 gm Q15M PRN PO DECREASED GLUCOSE; Start 01/12/17 at 13:00 Dextrose (D50w Syringe) 25 ml Q15M PRN IV DECREASED GLUCOSE Last administered on 01/13/17 04:53; Admin Dose 25 ML; Start 01/12/17 at 13:00 Dextrose (D50w Syringe) 50 ml Q15M PRN IV DECREASED GLUCOSE; Start 01/12/17 at 13:00 Glucagon (Glucagen) 1 mg Q15M PRN IM DECREASED GLUCOSE; Start 01/12/17 at 13:00 Glucose (Glutose) 15 gm Q15M PRN BUCCAL DECREASED GLUCOSE; Start 01/12/17 at 13: 00 Morphine Sulfate (morphine) 2 mg Q6 PRN IV pain Last administered on 01/15/17 16:09; Admin Dose 2 MG; Start 01/12/17 at 16:00 Morphine Sulfate (morphine) 2 mg Q3H PRN IV PAIN LEVEL 6-10 Last administered on 01/15/17 10:20; Admin Dose 2 MG; Start 01/14/17 at 04:00 Bisacodyl (Dulcolax Supp) 10 mg Q24H PRN [place] CONSTIPATION; Start 01/15/17 at 09: 30 Docusate Sodium (Colace) 100 mg QHS PRN PO CONSTIPATION; Start 01/15/17 at 09:30 Lactulose (Enulose) 20 gm DAILY PRN PO CONSTIPATION Last administered on 01:45; Admin Dose 20 GM; Start 01/15/17 at 09:30 Senna (Senokot) 1 tab DAILY PO Last administered on 01/18/17 08:55; Admin Dose 1 TAB; Start 01/15/17 at 09:30 Sodium Biphosphate/ Sodium Phosphate (Fleet Enema) 133 ml DAILY PRN [place] CONSTIPATION; Start 01/15/17 at 09:30 Amlodipine Besylate (Norvasc) 10 mg DAILY PO Last administered on 01/18/17 08: 53; Admin Dose 10 MG; Start 01/16/17 at 09:00 Hydralazine HCl (Apresoline) 75 mg TID PO Last administered on 01/18/17 13:03 ; Admin Dose 75 MG; Start 01/16/17 at 09:00 Clonidine (Catapres) 0.1 mg Q6H PRN PO ELEVATED SYSTOLIC BP Last administered on 01/16/17 01:45; Admin Dose 0.1 MG; Start 01/16/17 at 01:30 Polyethylene Glycol (Miralax) 17 gm BID PO Last administered on 01/18/17 08:55 ; Admin Dose 17 GM; Start 01/16/17 at 21:00 Lubiprostone 24 mcg 24 mcg BID PO Last administered on 01/18/17 08:51; Admin Dose 24 MCG; Start 01/17/17 at 09:00 Ceftriaxone Sodium (Rocephin) 50 ml @ 100 mls/hr Q24H IVPB Last administered on 01/17/17 17:00; Admin Dose 100 MLS/HR; Start 01/17/17 at 17:00 Zolpidem Tartrate (Ambien) 5 mg HS PRN PO INSOMNIA Last administered on 21:53; Admin Dose 5 MG; Start 01/17/17 at 21:30 ADALID LEO NP Jan 18, 2017 13:30
--- NOTE | 2017-01-18 15:18 | PN ---
Date/Time of Note Date/Time of Note DATE: 01/18/17 TIME: 15:15 Assessment/Plan VTE Prophylaxis VTE Prophylaxis Intervention: ambulation, SCD's Lines/Catheters IV Catheter Type (from Nrsg): Saline Lock Urinary Cath still in place: No Assessment/Plan Assessment/Plan impression Possible T7-8 & L5-S1 Osteo/Diskitis MRI Brain/Cervical spine stable MRI T/L spine still Pending, had to reorder. RN not sure why study was cancelled. We were not notified plan finalize recs once studies completed iv antibx need INR normalized to <1.5 prior to any Nsx intervention Cards/med clearance for pending spine surgery Subjective 24 Hr Interval Summary Free Text/Dictation S: Pt off unit for MRI studies Exam/Review of Systems Vital Signs Vitals Vital Signs Date Time Temp Pulse Resp B/P Pulse Ox O2 Delivery O2 Flow Rate FiO2 01/18/17 12:55 77 01/18/17 11:22 98.6 20 138/66 96 Intake and Output 01/17/17 01/17/17 01/18/17 15:00 23:00 07:00 Intake Total 500 ml 400 ml 500 ml Output Total 3500 ml Balance -3000 ml 400 ml 500 ml Exam Exam: off unit VSS at bedside and updated by NSx Results Result Diagram: 01/18/17 0503 01/18/17 0503 Results 24 hrs Laboratory Tests Test 01/17/17 16:57 01/17/17 20:28 01/18/17 01:22 01/18/17 05:03 Bedside Glucose 147 153 101 White Blood Count 10.2 Red Blood Count 3.68 L Hemoglobin 10.5 L Hematocrit 35.4 L Mean Corpuscular Volume 96.2 Mean Corpuscular Hemoglobin 28.5 L Mean Corpuscular Hemoglobin Concent 29.7 L Red Cell Distribution Width 15.2 H Platelet Count 331 Mean Platelet Volume 8.4 Neutrophils % 59.1 Lymphocytes % 27.7 Monocytes % 8.0 Eosinophils % 4.2 Basophils % 0.8 Nucleated Red Blood Cells % 0.0 Neutrophils # (Manual) 6.0 Lymphocytes # 2.8 Monocytes # 0.8 Eosinophils # 0.4 Basophils # 0.1 Nucleated Red Blood Cells # 0.0 Prothrombin Time 26.4 H Prothrombin Time Ratio 2.1 INR International Normalized Ratio 2.39 Sodium Level 138 Potassium Level 3.9 Chloride Level 104 Carbon Dioxide Level 27 Anion Gap 11 Blood Urea Nitrogen 30 H Creatinine 3.79 H Glucose Level 85 Calcium Level 8.9 Phosphorus Level 3.5 Magnesium Level 2.2 Random Vancomycin Level 19.2 Test 01/18/17 08:33 01/18/17 09:48 01/18/17 11:48 Bedside Glucose 87 147 Prothrombin Time 24.2 H Prothrombin Time Ratio 1.9 INR International Normalized Ratio 2.15 Medications Medications Current Medications Aspirin (Aspirin) 162 mg DAILY PO Last administered on 01/18/17 08:51; Admin Dose 162 MG; Start 01/13/17 at 09:00 Atorvastatin Calcium (Lipitor) 80 mg QHS PO Last administered on 01/17/17 21: 53; Admin Dose 80 MG; Start 01/12/17 at 21:00 Metoclopramide HCl (Reglan) 5 mg BID PO Last administered on 01/18/17 08:50; Admin Dose 5 MG; Start 01/12/17 at 21:00 Metoprolol Tartrate (Lopressor) 100 mg BID PO Last administered on 01/18/17 08 :55; Admin Dose 100 MG; Start 01/12/17 at 21:00 Pantoprazole (Protonix Tab) 40 mg DAILY@06 PO Last administered on 01/18/17 05 :31; Admin Dose 40 MG; Start 01/13/17 at 06:00 Sertraline HCl (Zoloft) 50 mg DAILY PO Last administered on 01/18/17 08:53; Admin Dose 50 MG; Start 01/13/17 at 09:00 Tolterodine Tartrate (Detrol) 2 mg BID PO Last administered on 01/18/17 08:52 ; Admin Dose 2 MG; Start 01/12/17 at 21:00 Diagnostic Test (Pha) (Accu-Chek) 1 ea 02 XX Last administered on 01/18/17 02: 21; Admin Dose 1 EA; Start 01/13/17 at 02:00 Warfarin Sodium (Coumadin) 5 mg DAILY@17 PO Last administered on 01/17/17 16: 53; Admin Dose 5 MG; Start 01/12/17 at 17:00 Miscellaneous Information 1 ea NOTE XX ; Start 01/12/17 at 13:00 Glucose (Glutose) 15 gm Q15M PRN PO DECREASED GLUCOSE; Start 01/12/17 at 13:00 Glucose (Glutose) 22.5 gm Q15M PRN PO DECREASED GLUCOSE; Start 01/12/17 at 13:00 Dextrose (D50w Syringe) 25 ml Q15M PRN IV DECREASED GLUCOSE Last administered on 01/13/17 04:53; Admin Dose 25 ML; Start 01/12/17 at 13:00 Dextrose (D50w Syringe) 50 ml Q15M PRN IV DECREASED GLUCOSE; Start 01/12/17 at 13:00 Glucagon (Glucagen) 1 mg Q15M PRN IM DECREASED GLUCOSE; Start 01/12/17 at 13:00 Glucose (Glutose) 15 gm Q15M PRN BUCCAL DECREASED GLUCOSE; Start 01/12/17 at 13: 00 Morphine Sulfate (morphine) 2 mg Q6 PRN IV pain Last administered on 01/15/17 16:09; Admin Dose 2 MG; Start 01/12/17 at 16:00 Morphine Sulfate (morphine) 2 mg Q3H PRN IV PAIN LEVEL 6-10 Last administered on 01/15/17 10:20; Admin Dose 2 MG; Start 01/14/17 at 04:00 Bisacodyl (Dulcolax Supp) 10 mg Q24H PRN [place] CONSTIPATION; Start 01/15/17 at 09: 30 Docusate Sodium (Colace) 100 mg QHS PRN PO CONSTIPATION; Start 01/15/17 at 09:30 Lactulose (Enulose) 20 gm DAILY PRN PO CONSTIPATION Last administered on 01:45; Admin Dose 20 GM; Start 01/15/17 at 09:30 Senna (Senokot) 1 tab DAILY PO Last administered on 01/18/17 08:55; Admin Dose 1 TAB; Start 01/15/17 at 09:30 Sodium Biphosphate/ Sodium Phosphate (Fleet Enema) 133 ml DAILY PRN [place] CONSTIPATION; Start 01/15/17 at 09:30 Amlodipine Besylate (Norvasc) 10 mg DAILY PO Last administered on 01/18/17 08: 53; Admin Dose 10 MG; Start 01/16/17 at 09:00 Hydralazine HCl (Apresoline) 75 mg TID PO Last administered on 01/18/17 13:03 ; Admin Dose 75 MG; Start 9/9/17 at 09:00 Clonidine (Catapres) 0.1 mg Q6H PRN PO ELEVATED SYSTOLIC BP Last administered on 01/16/17 01:45; Admin Dose 0.1 MG; Start 01/16/17 at 01:30 Polyethylene Glycol (Miralax) 17 gm BID PO Last administered on 01/18/17 08:55 ; Admin Dose 17 GM; Start 01/16/17 at 21:00 Lubiprostone 24 mcg 24 mcg BID PO Last administered on 01/18/17 08:51; Admin Dose 24 MCG; Start 01/17/17 at 09:00 Ceftriaxone Sodium (Rocephin) 50 ml @ 100 mls/hr Q24H IVPB Last administered on 01/17/17 17:00; Admin Dose 100 MLS/HR; Start 01/17/17 at 17:00 Zolpidem Tartrate (Ambien) 5 mg HS PRN PO INSOMNIA Last administered on 21:53; Admin Dose 5 MG; Start 01/17/17 at 21:30 CAROLYN ECHEVARRIA MD Jan 18, 2017 15:18
--- NOTE | 2017-01-18 15:20 | RADRPT ---
PROCEDURE: MRI lumbar spine without contrast CLINICAL INDICATION: Back pain , diskitis and osteomyelitis TECHNIQUE: An high-resolution MRI of the lumbar spine was performed utilizing the following sequen reny: Sagittal and axial T1 weighted, sagittal and axial T2 weighted, and sagittal fat suppressed T2 . COMPARISON: Correlation abdominal CT 01/12/2017 FINDINGS: No acute vertebral compression fracture. No evidence of a diffuse marrow replacing process. T12 and L1 vertebral hemangiomas. The conus medullaris terminates at L1-2. T12 - L1: The disk is preserved in height. There is no significant disk protrusion, spinal canal or foraminal stenosis. L1 - L2: The disk is preserved in height. There is no significant disk protrusion, spinal canal or foraminal stenosis. L2 - L3: The disk is preserved in height. There is no significant disk protrusion, spinal canal or foraminal stenosis. L3 - L4: Focally erosive changes to the left superior endplate of L4. Left foraminal 2 mm disc pro trusion with mild left foraminal narrowing. No significant spinal canal stenosis. L4 - L5: Disc dessication and mild disc height loss with small disc bulge. There is a superimpose d 2 mm left central disc annular fissure and disc protrusion. There is narrowing of the left lateral recess without significant spinal canal narrowing. No significant foraminal narrowing. There is no significant disk protrusion, spinal canal or foraminal stenosis. L5 - S1: Abnormal hyperintense T2 signal of the disc space with erosive endplate changes and marro w edema in the adjacent endplates. Minimal disc bulging without spinal canal stenosis. Mild bilatera l foraminal narrowing. No large epidural fluid collection seen. Left psoas muscle edema is seen with a fluid collection measuring 7 x 9 mm adjacent to the L4 verteb ral body (series 5 image 52). Abnormal widening and erosive changes to the right sacroiliac joint again noted. IMPRESSION: Diskitis and osteomyelitis at L5-S1 and left superior endplate of L4 with left psoas muscle edema an d 9 mm left psoas abscess at the level of L4. Abnormal widening and erosive changes to the right sacroiliac joint may be due to infection or infla mmation. RPTAT: AA .Minh Aguirre MD, MD Date Time Electronically viewed and signed by .Minh Aguirre MD, on 01/18/2017 15:19 .T/
--- NOTE | 2017-01-18 15:47 | CONS ---
Date/Time of Note Date/Time of Note DATE: 01/18/17 TIME: 15:46 Assessment/Plan Assessment/Plan Additional Assessment/Plan Additional Assessment/Plan IMPRESSION: 1. Fecal impaction, compounded by pain medication.resolved 2. Possible transient ischemic attack, for which she is on aspirin and Lipitor. 3. Hypertension. 4. Atrial fibrillation, for which patient is on Coumadin. 5. End-stage renal disease, for which patient is on dialysis. 6. Possible osteomyelitis, T7-8. 7. T7 paraplegia. 8. Anemia related to probable chronic disease. 9. Diabetes mellitus. 10. Chronic pain syndrome. Plan Continue with Amitiza and MiraLAX Consultation Date/Type/Reason Admit Date/Time Jan 12, 2017 at 10:35 Initial Consult Date 01/12/17 Type of Consultation: ID Referring Provider: SAM CANTU DO 24 HR Interval Summary Free Text/Dictation good bowel movements Constitutional: improved Exam/Review of Systems Vital Signs Vitals Vital Signs Date Time Temp Pulse Resp B/P Pulse Ox O2 Delivery O2 Flow Rate FiO2 01/18/17 15:42 98.5 67 20 135/62 96 Intake and Output 01/17/17 01/17/17 01/18/17 15:00 23:00 07:00 Intake Total 500 ml 400 ml 500 ml Output Total 3500 ml Balance -3000 ml 400 ml 500 ml Exam Constitutional: alert, oriented, well developed Psych: nl mood/affect, no complaints Head: atraumatic, normocephalic Eyes: EOMI, PERRL, nl conjunctiva, nl lids, nl sclera ENMT: nl external ears & nose, nl lips & teeth, nl nasal mucosa & septum Neck: non-tender, supple Respiratory: clear to auscultation, normal air movement Cardiovascular: nl pulses, regular rate and rhythm Gastrointestinal: nl liver, spleen, non-tender, soft Musculoskeletal: nl extremities to inspection, nl gait and stance Extremities: normal pulses 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: BAG LOADER II-XII intact, nl mental status, nl speech, nl strength Skin: nl turgor, No rash or lesions Lymph: nl lymph nodes Results Result Diagram: 01/18/17 0503 01/18/17 0503 Results 24 hrs Laboratory Tests Test 01/17/17 16:57 01/17/17 20:28 01/18/17 01:22 01/18/17 05:03 Bedside Glucose 147 153 101 White Blood Count 10.2 Red Blood Count 3.68 L Hemoglobin 10.5 L Hematocrit 35.4 L Mean Corpuscular Volume 96.2 Mean Corpuscular Hemoglobin 28.5 L Mean Corpuscular Hemoglobin Concent 29.7 L Red Cell Distribution Width 15.2 H Platelet Count 331 Mean Platelet Volume 8.4 Neutrophils % 59.1 Lymphocytes % 27.7 Monocytes % 8.0 Eosinophils % 4.2 Basophils % 0.8 Nucleated Red Blood Cells % 0.0 Neutrophils # (Manual) 6.0 Lymphocytes # 2.8 Monocytes # 0.8 Eosinophils # 0.4 Basophils # 0.1 Nucleated Red Blood Cells # 0.0 Prothrombin Time 26.4 H Prothrombin Time Ratio 2.1 INR International Normalized Ratio 2.39 Sodium Level 138 Potassium Level 3.9 Chloride Level 104 Carbon Dioxide Level 27 Anion Gap 11 Blood Urea Nitrogen 30 H Creatinine 3.79 H Glucose Level 85 Calcium Level 8.9 Phosphorus Level 3.5 Magnesium Level 2.2 Random Vancomycin Level 19.2 Test 01/18/17 08:33 01/18/17 09:48 01/18/17 11:48 Bedside Glucose 87 147 Prothrombin Time 24.2 H Prothrombin Time Ratio 1.9 INR International Normalized Ratio 2.15 Medications Medications Current Medications Aspirin (Aspirin) 162 mg DAILY PO Last administered on 01/18/17 08:51; Admin Dose 162 MG; Start 01/13/17 at 09:00 Atorvastatin Calcium (Lipitor) 80 mg QHS PO Last administered on 01/17/17 21: 53; Admin Dose 80 MG; Start 01/12/17 at 21:00 Metoclopramide HCl (Reglan) 5 mg BID PO Last administered on 01/18/17 08:50; Admin Dose 5 MG; Start 01/12/17 at 21:00 Metoprolol Tartrate (Lopressor) 100 mg BID PO Last administered on 01/18/17 08 :55; Admin Dose 100 MG; Start 01/12/17 at 21:00 Pantoprazole (Protonix Tab) 40 mg DAILY@06 PO Last administered on 01/18/17 05 :31; Admin Dose 40 MG; Start 01/13/17 at 06:00 Sertraline HCl (Zoloft) 50 mg DAILY PO Last administered on 01/18/17 08:53; Admin Dose 50 MG; Start 01/13/17 at 09:00 Tolterodine Tartrate (Detrol) 2 mg BID PO Last administered on 01/18/17 08:52 ; Admin Dose 2 MG; Start 01/12/17 at 21:00 Diagnostic Test (Pha) (Accu-Chek) 1 ea 02 XX Last administered on 01/18/17 02: 21; Admin Dose 1 EA; Start 01/13/17 at 02:00 Warfarin Sodium (Coumadin) 5 mg DAILY@17 PO Last administered on 01/17/17 16: 53; Admin Dose 5 MG; Start 01/12/17 at 17:00 Miscellaneous Information 1 ea NOTE XX ; Start 01/12/17 at 13:00 Glucose (Glutose) 15 gm Q15M PRN PO DECREASED GLUCOSE; Start 01/12/17 at 13:00 Glucose (Glutose) 22.5 gm Q15M PRN PO DECREASED GLUCOSE; Start 01/12/17 at 13:00 Dextrose (D50w Syringe) 25 ml Q15M PRN IV DECREASED GLUCOSE Last administered on 01/13/17 04:53; Admin Dose 25 ML; Start 01/12/17 at 13:00 Dextrose (D50w Syringe) 50 ml Q15M PRN IV DECREASED GLUCOSE; Start 01/12/17 at 13:00 Glucagon (Glucagen) 1 mg Q15M PRN IM DECREASED GLUCOSE; Start 01/12/17 at 13:00 Glucose (Glutose) 15 gm Q15M PRN BUCCAL DECREASED GLUCOSE; Start 01/12/17 at 13: 00 Morphine Sulfate (morphine) 2 mg Q6 PRN IV pain Last administered on 01/15/17 16:09; Admin Dose 2 MG; Start 01/12/17 at 16:00 Morphine Sulfate (morphine) 2 mg Q3H PRN IV PAIN LEVEL 6-10 Last administered on 01/15/17 10:20; Admin Dose 2 MG; Start 01/14/17 at 04:00 Bisacodyl (Dulcolax Supp) 10 mg Q24H PRN [place] CONSTIPATION; Start 01/15/17 at 09: 30 Docusate Sodium (Colace) 100 mg QHS PRN PO CONSTIPATION; Start 01/15/17 at 09:30 Lactulose (Enulose) 20 gm DAILY PRN PO CONSTIPATION Last administered on 01:45; Admin Dose 20 GM; Start 01/15/17 at 09:30 Senna (Senokot) 1 tab DAILY PO Last administered on 01/18/17 08:55; Admin Dose 1 TAB; Start 01/15/17 at 09:30 Sodium Biphosphate/ Sodium Phosphate (Fleet Enema) 133 ml DAILY PRN [place] CONSTIPATION; Start 01/15/17 at 09:30 Amlodipine Besylate (Norvasc) 10 mg DAILY PO Last administered on 01/18/17 08: 53; Admin Dose 10 MG; Start 01/16/17 at 09:00 Hydralazine HCl (Apresoline) 75 mg TID PO Last administered on 01/18/17 13:03 ; Admin Dose 75 MG; Start 01/16/17 at 09:00 Clonidine (Catapres) 0.1 mg Q6H PRN PO ELEVATED SYSTOLIC BP Last administered on 01/16/17 01:45; Admin Dose 0.1 MG; Start 01/16/17 at 01:30 Polyethylene Glycol (Miralax) 17 gm BID PO Last administered on 01/18/17 08:55 ; Admin Dose 17 GM; Start 01/16/17 at 21:00 Lubiprostone 24 mcg 24 mcg BID PO Last administered on 01/18/17 08:51; Admin Dose 24 MCG; Start 01/17/17 at 09:00 Ceftriaxone Sodium (Rocephin) 50 ml @ 100 mls/hr Q24H IVPB Last administered on 01/17/17 17:00; Admin Dose 100 MLS/HR; Start 01/17/17 at 17:00 Zolpidem Tartrate (Ambien) 5 mg HS PRN PO INSOMNIA Last administered on 21:53; Admin Dose 5 MG; Start 01/17/17 at 21:30 ELIESER REDDY MD Jan 18, 2017 15:47
[2017-01-18] MEDS: CEFTRIAXONE 2 GM/NS 50 ML IVPB SCH (17:19)
--- NOTE | 2017-01-18 18:01 | PN ---
DATE: 01/18/2017 SUBJECTIVE DATA: The patient is stable. No events overnight. The patient had multiple bowel movements yesterday. No longer feels constipated. OBJECTIVE DATA: VITAL SIGNS: Blood pressure 136/72, temperature 98.6, pulse 65, and respirations 20. HEENT: Head is normocephalic. NECK: Supple. HEART: Regular rate. LUNGS: Diminished breath sounds at the base. ABDOMEN: Soft, nontender to palpation. No rebound or guarding. EXTREMITIES: Negative for clubbing, cyanosis. No edema. DERMATOLOGIC: No rashes. MUSCULOSKELETAL: No joint effusion. NEUROLOGIC: Unchanged exam. MEDICATIONS: Reviewed. LABORATORY AND DIAGNOSTIC DATA: Sodium 138, potassium 3.9, BUN 30, creatinine 3.79. White count is 7.2, hemoglobin 10.5, hematocrit 25.4, platelet count is 331,000. ASSESSMENT AND PLAN: 1. Possible transient ischemic attack. The patient is clinically improved. MRI of the brain is negative. Continue medical management. 2. Hypertension. Continue current blood pressure regimen. 3. Constipation resolved. Appreciate Gastroenterology evaluation. Continue current bowel regimen. 4. Paroxysmal atrial fibrillation. Currently sinus rhythm. Continue Coumadin. Follow up INR. The INR being managed by Cardiology. 5. Possible osteomyelitis. Patient's MRI of the thoracic spine is pending. Appreciate Neurology's evaluation. Continue antibiotic regimen. 6. Anemia. Monitor hemoglobin and hematocrit levels. Continue Epogen. 7. History of T7 compression paraplegia. Continue physical therapy. 8. Mineral bone disorder. Will monitor calcium and phosphorus levels. 9. Diabetes. Continue current insulin regimen. 10. Chronic pain syndrome. 11. Shingles. The patient's completing course of Valtrex. 12. Gastrointestinal and deep venous thrombosis prophylaxis. Continue proton pump inhibitors and Coumadin. Dictated By: Buck Seals DO /saul/gracy /Document#: [id number]
[2017-01-18] MEDS: WARFARIN 5 MG TAB PO SCH (18:24)
--- NOTE | 2017-01-18 19:37 | CONS ---
Date/Time of Note Date/Time of Note DATE: 01/18/17 TIME: 19:35 Consult Date/Type/Reason Admit Date/Time Jan 12, 2017 at 10:35 Initial Consult Date 01/12/17 Type of Consultation: CARDIOLOGY Ordering Provider: SAM CANTU DO Subjective CARDIOLOGY FOLLOW UP NOTE: Discussed with and staff. Rhythm strip was reviewed. Patient remained in sinus rhythm with no evidence of atrial fibrillation overnight. Her slurred speech has resolved now. Denies any chest pain or pressure or palpitation to me. she has less back pain objective: General: no acute distress HEENT: NC/AT. pupils are equal. round. NECK: NO JVD. no stridor. CV: RRR. systolic murmur; no gallop or rubs. PULM: no wheezing or rhonchi. GI: SOFT, NT, ND, no rebound or guarding Extremity: trace B/L LE edema. no clubbing. neuro: awake and alert, Psych: calm and pleasant rectal: deferred : normal Objective Vital Signs Date Time Temp Pulse Resp B/P Pulse Ox O2 Delivery O2 Flow Rate FiO2 01/18/17 16:23 72 01/18/17 15:42 98.5 20 135/62 96 Intake and Output 01/17/17 01/17/17 01/18/17 15:00 23:00 07:00 Intake Total 500 ml 400 ml 500 ml Output Total 3500 ml Balance -3000 ml 400 ml 500 ml Results/Medications Result Diagram: 01/18/17 0503 01/18/17 0503 Results 24 hrs Laboratory Tests Test 01/17/17 20:28 01/18/17 01:22 01/18/17 05:03 01/18/17 08:33 Bedside Glucose 153 101 87 White Blood Count 10.2 Red Blood Count 3.68 L Hemoglobin 10.5 L Hematocrit 35.4 L Mean Corpuscular Volume 96.2 Mean Corpuscular Hemoglobin 28.5 L Mean Corpuscular Hemoglobin Concent 29.7 L Red Cell Distribution Width 15.2 H Platelet Count 331 Mean Platelet Volume 8.4 Neutrophils % 59.1 Lymphocytes % 27.7 Monocytes % 8.0 Eosinophils % 4.2 Basophils % 0.8 Nucleated Red Blood Cells % 0.0 Neutrophils # (Manual) 6.0 Lymphocytes # 2.8 Monocytes # 0.8 Eosinophils # 0.4 Basophils # 0.1 Nucleated Red Blood Cells # 0.0 Prothrombin Time 26.4 H Prothrombin Time Ratio 2.1 INR International Normalized Ratio 2.39 Sodium Level 138 Potassium Level 3.9 Chloride Level 104 Carbon Dioxide Level 27 Anion Gap 11 Blood Urea Nitrogen 30 H Creatinine 3.79 H Glucose Level 85 Calcium Level 8.9 Phosphorus Level 3.5 Magnesium Level 2.2 Random Vancomycin Level 19.2 Test 01/18/17 09:48 01/18/17 11:48 01/18/17 17:16 Prothrombin Time 24.2 H Prothrombin Time Ratio 1.9 INR International Normalized Ratio 2.15 Bedside Glucose 147 166 Medications Current Medications Aspirin (Aspirin) 162 mg DAILY PO Last administered on 01/18/17 08:51; Admin Dose 162 MG; Start 01/13/17 at 09:00 Atorvastatin Calcium (Lipitor) 80 mg QHS PO Last administered on 01/17/17 21: 53; Admin Dose 80 MG; Start 01/12/17 at 21:00 Metoclopramide HCl (Reglan) 5 mg BID PO Last administered on 01/18/17 08:50; Admin Dose 5 MG; Start 01/12/17 at 21:00 Metoprolol Tartrate (Lopressor) 100 mg BID PO Last administered on 01/18/17 08 :55; Admin Dose 100 MG; Start 01/12/17 at 21:00 Pantoprazole (Protonix Tab) 40 mg DAILY@06 PO Last administered on 01/18/17 05 :31; Admin Dose 40 MG; Start 01/13/17 at 06:00 Sertraline HCl (Zoloft) 50 mg DAILY PO Last administered on 01/18/17 08:53; Admin Dose 50 MG; Start 01/13/17 at 09:00 Tolterodine Tartrate (Detrol) 2 mg BID PO Last administered on 01/18/17 08:52 ; Admin Dose 2 MG; Start 01/12/17 at 21:00 Diagnostic Test (Pha) (Accu-Chek) 1 ea 02 XX Last administered on 01/18/17 02: 21; Admin Dose 1 EA; Start 01/13/17 at 02:00 Warfarin Sodium (Coumadin) 5 mg DAILY@17 PO Last administered on 01/18/17 18: 24; Admin Dose 5 MG; Start 01/12/17 at 17:00 Miscellaneous Information 1 ea NOTE XX ; Start 01/12/17 at 13:00 Glucose (Glutose) 15 gm Q15M PRN PO DECREASED GLUCOSE; Start 01/12/17 at 13:00 Glucose (Glutose) 22.5 gm Q15M PRN PO DECREASED GLUCOSE; Start 01/12/17 at 13:00 Dextrose (D50w Syringe) 25 ml Q15M PRN IV DECREASED GLUCOSE Last administered on 01/13/17 04:53; Admin Dose 25 ML; Start 01/12/17 at 13:00 Dextrose (D50w Syringe) 50 ml Q15M PRN IV DECREASED GLUCOSE; Start 01/12/17 at 13:00 Glucagon (Glucagen) 1 mg Q15M PRN IM DECREASED GLUCOSE; Start 01/12/17 at 13:00 Glucose (Glutose) 15 gm Q15M PRN BUCCAL DECREASED GLUCOSE; Start 01/12/17 at 13: 00 Morphine Sulfate (morphine) 2 mg Q6 PRN IV pain Last administered on 01/15/17 16:09; Admin Dose 2 MG; Start 01/12/17 at 16:00 Morphine Sulfate (morphine) 2 mg Q3H PRN IV PAIN LEVEL 6-10 Last administered on 01/15/17 10:20; Admin Dose 2 MG; Start 01/14/17 at 04:00 Bisacodyl (Dulcolax Supp) 10 mg Q24H PRN [place] CONSTIPATION; Start 01/15/17 at 09: 30 Docusate Sodium (Colace) 100 mg QHS PRN PO CONSTIPATION; Start 01/15/17 at 09:30 Lactulose (Enulose) 20 gm DAILY PRN PO CONSTIPATION Last administered on 01:45; Admin Dose 20 GM; Start 01/15/17 at 09:30 Senna (Senokot) 1 tab DAILY PO Last administered on 01/18/17 08:55; Admin Dose 1 TAB; Start 01/15/17 at 09:30 Sodium Biphosphate/ Sodium Phosphate (Fleet Enema) 133 ml DAILY PRN [place] CONSTIPATION; Start 01/15/17 at 09:30 Amlodipine Besylate (Norvasc) 10 mg DAILY PO Last administered on 01/18/17 08: 53; Admin Dose 10 MG; Start 01/16/17 at 09:00 Hydralazine HCl (Apresoline) 75 mg TID PO Last administered on 01/18/17 13:03 ; Admin Dose 75 MG; Start 01/16/17 at 09:00 Clonidine (Catapres) 0.1 mg Q6H PRN PO ELEVATED SYSTOLIC BP Last administered on 01/16/17 01:45; Admin Dose 0.1 MG; Start 01/16/17 at 01:30 Polyethylene Glycol (Miralax) 17 gm BID PO Last administered on 01/18/17 08:55 ; Admin Dose 17 GM; Start 01/16/17 at 21:00 Lubiprostone 24 mcg 24 mcg BID PO Last administered on 01/18/17 08:51; Admin Dose 24 MCG; Start 01/17/17 at 09:00 Ceftriaxone Sodium (Rocephin) 50 ml @ 100 mls/hr Q24H IVPB Last administered on 01/18/17 17:19; Admin Dose 100 MLS/HR; Start 01/17/17 at 17:00 Zolpidem Tartrate 5 mg 5 mg HS PRN PO INSOMNIA Last administered on 01/17/17 21:53; Admin Dose 5 MG; Start 01/17/17 at 21:30 Vancomycin HCl (Vancocin) 250 ml @ 125 mls/hr 09 IVPB ; Start 01/19/17 at 09:00 ; Stop 01/19/17 at 12:00 Assessment/Plan Chief Complaint/Hosp Course 1. Slurred speech:improved now. ? transient ischemic attack. F/U with neurology rec. f/u on MRI 2. End-stage renal disease. HD as per renal 3. Hypertension. stable Continue current blood pressure regimen. 4. History of chronic obstructive pulmonary disease. Continue medical management. 5. History of P afib. currently in NSR. CONT coumadin and adjust INR daily. 6. History of T7 paraplegia. Continue physical therapy. 7. Anemia. defer to IM 8. Dyslipidemia. Continue statin therapy. 09. Diabetes. Continue Accu-Cheks and insulin sliding scale. Thank you for this referral I will continue to follow along with you. TAMERA BAILEY MD [facility] Problems: TAMERA BAILEY MD Jan 18, 2017 19:37
[2017-01-18] MEDS: ATORVASTATIN 80 MG TAB PO SCH (21:57)
[2017-01-18] MEDS: ZOLPIDEM 5 MG TAB PO PRN (22:17)
[2017-01-19] VITALS (18 sets, daily range): BP systolic 139–185; BP diastolic 63–85; PULSE 65–84; RESP 16–18
[2017-01-19] MEDS: ACCU-CHEK XX SCH (02:00)
[2017-01-19] MEDS: morphine 2 MG INJ IV PRN ×5 (03:13→22:39)
[2017-01-19] MEDS: PANTOPRAZOLE (EC) 40 MG TAB PO SCH (05:58)
[2017-01-19] MEDS: INSULIN ASPART [NOVOLOG] 3 ML PEN SC SCH ×4 (07:55→20:31)
[2017-01-19] MEDS: SEVELAMER 800 MG TAB PO SCH ×3 (08:03→17:14)
[2017-01-19] MEDS: REPAGLINIDE 1 MG TAB PO SCH ×3 (08:03→17:14)
[2017-01-19 08:27] LABS: INR 1.98; PROTIME 22.7 Sec (12.2-14.2); PT RATIO 1.8
[2017-01-19] MEDS ORDERED: VANCOMYCIN 1 GM in NS 250 ML IVPB SCH (09:00)
[2017-01-19] MEDS: METOPROLOL 100 MG TAB PO SCH ×2 (09:00→19:56)
[2017-01-19] MEDS: AMLODIPINE 10 MG TAB PO SCH (09:00)
[2017-01-19] MEDS: POLYETHYLENE GLYCOL 17 GM PACKET PO SCH ×2 (09:31→20:01)
[2017-01-19] MEDS: SERTRALINE 50 MG TAB PO SCH (09:32)
[2017-01-19] MEDS: METOCLOPRAMIDE 5 MG TAB PO SCH ×2 (09:32→19:57)
[2017-01-19] MEDS: ASPIRIN 81 MG TAB PO SCH (09:32)
[2017-01-19] MEDS: LUBIPROSTONE 24 MCG CAP PO SCH ×2 (09:32→19:56)
[2017-01-19] MEDS: TOLTERODINE 2 MG TAB PO SCH ×2 (09:34→19:55)
[2017-01-19] MEDS: SENNA TAB PO SCH (09:35)
[2017-01-19] MEDS: HYDROCODONE/APAP (10/325) TAB PO PRN (09:53)
--- NOTE | 2017-01-19 11:01 | PN ---
DATE: 01/19/2017 SUBJECTIVE DATA: The patient is complaining of back pain. No other events noted. No hemoptysis, hematemesis, hematochezia. OBJECTIVE DATA: VITAL SIGNS: Blood pressure is 185/77, temperature 98.5, pulse 68, respirations 18, saturating 96 percent. HEENT: Head is normocephalic. NECK: Supple. HEART: Regular rate. LUNGS: Diminished breath sounds at the base. ABDOMEN: Soft, nontender to palpation. No rebound or guarding. EXTREMITIES: Negative for clubbing, cyanosis. No edema. DERMATOLOGIC: Clean. No rashes. MUSCULOSKELETAL: No joint effusion. NEUROLOGIC: No change in exam. LABORATORY AND DIAGNOSTIC DATA: Shows white count 10.2, hemoglobin 10.5, hematocrit 25.4, platelet count is 331,000. INR is 1.98. ASSESSMENT AND PLAN: 1. Possible transient ischemic attack. Patient clinically improved. MRI was negative. Continue current medical management. 2. Hypertension. Continue current blood pressure regimen. 3. Constipation, improved. 4. Paroxysmal atrial fibrillation. Currently sinus rhythm. Patient is on Coumadin, will likely need to hold if the patient will be planned for surgery. 5. Possible osteomyelitis. The patient's MRI of the spine revealed diskitis osteomyelitis at L5-S1 with possible left psoas muscle edema. The patient has been seen by Neurosurgery, will likely require intervention. Will follow up with Neurosurgery for recommendations. 6. Anemia. Monitor hemoglobin and hematocrit. Continue Epogen. 7. Mineral bone disorder. Continue monitor calcium and phosphorus levels. 8. History of T7 partial paraplegia. Continue physical therapy. 9. Diabetes. Continue Accu-Cheks and sliding scale. 10. Chronic pain syndrome. 11. Shingles. The patient is to continue a course of Valtrex. 12. Gastrointestinal and deep venous thrombosis prophylaxis. Continue proton pump inhibitor and Coumadin. Dictated By: Buck Seals DO /saul/nichole /Document#: [id number]
--- NOTE | 2017-01-19 11:34 | CONS ---
Date/Time of Note Date/Time of Note DATE: 01/19/17 TIME: 11:33 Consult Date/Type/Reason Admit Date/Time Jan 12, 2017 at 10:35 Initial Consult Date 01/12/17 Type of Consultation: Neurology Ordering Provider: SAM CANTU DO Subjective MRI Lumbar Spine: Diskitis and osteomyelitis at L5-S1 and left superior endplate of L4 with left psoas muscle edema and 9 mm left psoas abscess at the level of L4. Abnormal widening and erosive changes to the right sacroiliac joint may be due to infection or inflammation. Objective Vital Signs Date Time Temp Pulse Resp B/P Pulse Ox O2 Delivery O2 Flow Rate FiO2 01/19/17 11:22 98.5 74 18 169/80 96 Intake and Output 01/18/17 01/18/17 01/19/17 15:00 23:00 07:00 Intake Total 900 ml 120 ml Balance 900 ml 120 ml Results/Medications Result Diagram: 01/18/17 0503 01/18/17 0503 Results 24 hrs Laboratory Tests Test 01/18/17 11:48 01/18/17 17:16 01/18/17 22:07 01/19/17 07:15 Bedside Glucose 147 166 129 Prothrombin Time 22.7 H Prothrombin Time Ratio 1.8 INR International Normalized Ratio 1.98 Test 01/19/17 08:00 01/19/17 11:04 Bedside Glucose 94 150 Medications Current Medications Aspirin (Aspirin) 162 mg DAILY PO Last administered on 01/19/17 09:32; Admin Dose 162 MG; Start 01/13/17 at 09:00 Atorvastatin Calcium (Lipitor) 80 mg QHS PO Last administered on 01/18/17 21: 57; Admin Dose 80 MG; Start 01/12/17 at 21:00 Metoclopramide HCl (Reglan) 5 mg BID PO Last administered on 01/19/17 09:32; Admin Dose 5 MG; Start 01/12/17 at 21:00 Metoprolol Tartrate (Lopressor) 100 mg BID PO Last administered on 01/18/17 21 :58; Admin Dose 100 MG; Start 01/12/17 at 21:00 Pantoprazole (Protonix Tab) 40 mg DAILY@06 PO Last administered on 01/19/17 05 :58; Admin Dose 40 MG; Start 01/13/17 at 06:00 Sertraline HCl (Zoloft) 50 mg DAILY PO Last administered on 01/19/17 09:32; Admin Dose 50 MG; Start 01/13/17 at 09:00 Tolterodine Tartrate (Detrol) 2 mg BID PO Last administered on 01/19/17 09:34 ; Admin Dose 2 MG; Start 01/12/17 at 21:00 Diagnostic Test (Pha) (Accu-Chek) 1 ea 02 XX Last administered on 01/18/17 02: 21; Admin Dose 1 EA; Start 01/13/17 at 02:00 Warfarin Sodium (Coumadin) 5 mg DAILY@17 PO Last administered on 01/18/17 18: 24; Admin Dose 5 MG; Start 01/12/17 at 17:00; Status Future Hold Miscellaneous Information 1 ea NOTE XX ; Start 01/12/17 at 13:00 Glucose (Glutose) 15 gm Q15M PRN PO DECREASED GLUCOSE; Start 01/12/17 at 13:00 Glucose (Glutose) 22.5 gm Q15M PRN PO DECREASED GLUCOSE; Start 01/12/17 at 13:00 Dextrose (D50w Syringe) 25 ml Q15M PRN IV DECREASED GLUCOSE Last administered on 01/13/17 04:53; Admin Dose 25 ML; Start 01/12/17 at 13:00 Dextrose (D50w Syringe) 50 ml Q15M PRN IV DECREASED GLUCOSE; Start 01/12/17 at 13:00 Glucagon (Glucagen) 1 mg Q15M PRN IM DECREASED GLUCOSE; Start 01/12/17 at 13:00 Glucose (Glutose) 15 gm Q15M PRN BUCCAL DECREASED GLUCOSE; Start 01/12/17 at 13: 00 Morphine Sulfate (morphine) 2 mg Q6 PRN IV pain Last administered on 01/19/17 03:13; Admin Dose 2 MG; Start 01/12/17 at 16:00 Morphine Sulfate (morphine) 2 mg Q3H PRN IV PAIN LEVEL 6-10 Last administered on 01/19/17 11:00; Admin Dose 2 MG; Start 01/14/17 at 04:00 Bisacodyl (Dulcolax Supp) 10 mg Q24H PRN [place] CONSTIPATION; Start 01/15/17 at 09: 30 Docusate Sodium (Colace) 100 mg QHS PRN PO CONSTIPATION Last administered on 08:17; Admin Dose 100 MG; Start 01/15/17 at 09:30 Lactulose (Enulose) 20 gm DAILY PRN PO CONSTIPATION Last administered on 01:45; Admin Dose 20 GM; Start 01/15/17 at 09:30 Senna (Senokot) 1 tab DAILY PO Last administered on 01/19/17 09:35; Admin Dose 1 TAB; Start 01/15/17 at 09:30 Sodium Biphosphate/ Sodium Phosphate (Fleet Enema) 133 ml DAILY PRN [place] CONSTIPATION; Start 01/15/17 at 09:30 Amlodipine Besylate (Norvasc) 10 mg DAILY PO Last administered on 01/18/17 08: 53; Admin Dose 10 MG; Start 01/16/17 at 09:00 Hydralazine HCl (Apresoline) 75 mg TID PO Last administered on 01/18/17 21:57 ; Admin Dose 75 MG; Start 01/16/17 at 09:00 Clonidine (Catapres) 0.1 mg Q6H PRN PO ELEVATED SYSTOLIC BP Last administered on 01/16/17 01:45; Admin Dose 0.1 MG; Start 01/16/17 at 01:30 Polyethylene Glycol (Miralax) 17 gm BID PO Last administered on 01/19/17 09:31 ; Admin Dose 17 GM; Start 01/16/17 at 21:00 Lubiprostone 24 mcg 24 mcg BID PO Last administered on 01/19/17 09:32; Admin Dose 24 MCG; Start 01/17/17 at 09:00 Ceftriaxone Sodium (Rocephin) 50 ml @ 100 mls/hr Q24H IVPB Last administered on 01/18/17 17:19; Admin Dose 100 MLS/HR; Start 01/17/17 at 17:00 Zolpidem Tartrate 5 mg 5 mg HS PRN PO INSOMNIA Last administered on 01/18/17 22:17; Admin Dose 5 MG; Start 01/17/17 at 21:30 Vancomycin HCl (Vancocin) 250 ml @ 125 mls/hr 09 IVPB Last administered on 09:34; Admin Dose 125 MLS/HR; Start 01/19/17 at 09:00; Stop 01/19/17 at 12:00 Acetaminophen/ Hydrocodone Bitart ([place] (10/)) 1 tab Q4H PRN PO 4-6 PAIN Last administered on 01/19/17t 09:53; Admin Dose 1 TAB; Start 01/19/17 at 10:00 Oxycodone HCl (Oxycontin) 10 mg Q8H PO ; Start 01/19/17 at 12:00; Status UNV Assessment/Plan Chief Complaint/Hosp Course 51 yo with old left basal ganglia infarct, CT T Spine T5-T10 fusion concerning for OM. Maintain normotensive BP, continue with ASA and high intensity statin. MRI Brain, Cervical Spine imaging was done- no acute process, no acute CVA or cord pathology in Cervical Spine MRI L Spine: Diskitis and osteomyelitis at L5-S1 and left superior endplate of L4 with left psoas muscle edema and 9 mm left psoas abscess at the level of L4. Abnormal widening and erosive changes to the right sacroiliac joint may be due to infection or inflammation. Follow up with neurosurgery recommendations, will reconsult as needed Problems: AMADOU ROBERTSON MD Jan 19, 2017 11:34
[2017-01-19] MEDS: oxyCODONE (CR) 10 MG TAB [oxyCONTIN] PO SCH ×2 (11:50→19:55)
--- NOTE | 2017-01-19 13:02 | PN ---
Date/Time of Note Date/Time of Note DATE: 01/19/17 TIME: 12:51 Assessment/Plan VTE Prophylaxis VTE Prophylaxis Intervention: ambulation Lines/Catheters IV Catheter Type (from Nrs): perm cath Urinary Cath still in place: No Assessment/Plan Chief Complaint/Hosp Course 52 y/o female with history DM, ESRD, CAD, CVA, and recently started on Valtrex for Shingles. Per history, pt admitted for possible CVA/TIA and given ASA in ED. CT brain on arrival showed no acute bleed. CT abd/thoracic spine showed known previous T5-10 posterior rods/screws per pt done 10/05/2016 at [facility] for infection and had 2 weeks iv antibiotics post op. Called to evaluate regarding possible T/L spine osteo/diskitis and possible SI joint infection noted as well. Pt with worsening back pain and some recent chills but no fever. Pt requires max assistance with FWW since surgery. pmh/psx: per hpi/chart meds: see med recon ros: per hpi/chart Problems: Assessment/Plan MRI Lspine: Reviewed and noted. Discussed report and reviewed images with Pt and No acute vertebral compression fracture. No evidence of a diffuse marrow replacing process. T12 and L1 vertebral hemangiomas. The conus medullaris terminates at L1-2. T12 - L1: The disk is preserved in height. There is no significant disk protrusion, spinal canal or foraminal stenosis. L1 - L2: The disk is preserved in height. There is no significant disk protrusion, spinal canal or foraminal stenosis. L2 - L3: The disk is preserved in height. There is no significant disk protrusion, spinal canal or foraminal stenosis. L3 - L4: Focally erosive changes to the left superior endplate of L4. Left foraminal 2 mm disc protrusion with mild left foraminal narrowing. No significant spinal canal stenosis. L4 - L5: Disc dessication and mild disc height loss with small disc bulge. There is a superimposed 2 mm left central disc annular fissure and disc protrusion. There is narrowing of the left lateral recess without significant spinal canal narrowing. No significant foraminal narrowing. There is no significant disk protrusion, spinal canal or foraminal stenosis. L5 - S1: Abnormal hyperintense T2 signal of the disc space with erosive endplate changes and marrow edema in the adjacent endplates. Minimal disc bulging without spinal canal stenosis. Mild bilateral foraminal narrowing. No large epidural fluid collection seen. Left psoas muscle edema is seen with a fluid collection measuring 7 x 9 mm adjacent to the L4 vertebral body (series 5 image 52). Abnormal widening and erosive changes to the right sacroiliac joint again noted. IMPRESSION: Diskitis and osteomyelitis at L5-S1 and left superior endplate of L4 with left psoas muscle edema and 9 mm left psoas abscess at the level of L4. Abnormal widening and erosive changes to the right sacroiliac joint may be due to infection or inflammation. impression L5-S1 Osteo/diskitis noted on MRI Left Psoas muscle abscess L4-5 endplate changes as well Plan TLIF L5-S1 with ISF placement on Family advised that she may need future surgery for L4-5 erosive changes but do not want to further seed / infect above levels. Family understands HOLD coumadin and INR < 1.5 prior to sx extensive d/w pt and about all available options including surgery vs no surgery. all risk/complications (3-5%) as preprinted in Dr. Maldonado's preop consent form thoroughly discussed. All questions answered and no guarantees given. Pt understands that surgery intended to help with her LBP and LLE radic by 60-70 % NOT prevent future infections. Pt will need IV antibx for minimum 4-6 weeks pos operatively Subjective 24 Hr Interval Summary Free Text/Dictation S: NAD Exam/Review of Systems Vital Signs Vitals Vital Signs Date Time Temp Pulse Resp B/P Pulse Ox O2 Delivery O2 Flow Rate FiO2 01/19/17 12:33 75 01/19/17 11:22 98.5 18 169/80 96 Intake and Output 01/18/17 01/18/17 01/19/17 15:00 23:00 07:00 Intake Total 900 ml 120 ml Balance 900 ml 120 ml Exam 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: other (MS: AAOX3 CN: PERRL M: FC x 4 , LLE radic and left psoas muscle pain ) Results Result Diagram: 01/18/17 0503 01/18/17 0503 Results 24 hrs Laboratory Tests Test 01/18/17 17:16 01/18/17 22:07 01/19/17 07:15 01/19/17 08:00 Bedside Glucose 166 129 94 Prothrombin Time 22.7 H Prothrombin Time Ratio 1.8 INR International Normalized Ratio 1.98 Test 01/19/17 11:04 Bedside Glucose 150 Medications Medications Current Medications Aspirin (Aspirin) 162 mg DAILY PO Last administered on 01/19/17 09:32; Admin Dose 162 MG; Start 01/13/17 at 09:00 Atorvastatin Calcium (Lipitor) 80 mg QHS PO Last administered on 01/18/17 21: 57; Admin Dose 80 MG; Start 01/12/17 at 21:00 Metoclopramide HCl (Reglan) 5 mg BID PO Last administered on 01/19/17 09:32; Admin Dose 5 MG; Start 01/12/17 at 21:00 Metoprolol Tartrate (Lopressor) 100 mg BID PO Last administered on 01/18/17 21 :58; Admin Dose 100 MG; Start 01/12/17 at 21:00 Pantoprazole (Protonix Tab) 40 mg DAILY@06 PO Last administered on 01/19/17 05 :58; Admin Dose 40 MG; Start 01/13/17 at 06:00 Sertraline HCl (Zoloft) 50 mg DAILY PO Last administered on 01/19/17 09:32; Admin Dose 50 MG; Start 01/13/17 at 09:00 Tolterodine Tartrate (Detrol) 2 mg BID PO Last administered on 01/19/17 09:34 ; Admin Dose 2 MG; Start 01/12/17 at 21:00 Diagnostic Test (Pha) (Accu-Chek) 1 ea 02 XX Last administered on 01/18/17 02: 21; Admin Dose 1 EA; Start 01/13/17 at 02:00 Warfarin Sodium (Coumadin) 5 mg DAILY@17 PO Last administered on 01/18/17 18: 24; Admin Dose 5 MG; Start 01/12/17 at 17:00; Status Future Hold Miscellaneous Information 1 ea NOTE XX ; Start 01/12/17 at 13:00 Glucose (Glutose) 15 gm Q15M PRN PO DECREASED GLUCOSE; Start 01/12/17 at 13:00 Glucose (Glutose) 22.5 gm Q15M PRN PO DECREASED GLUCOSE; Start 01/12/17 at 13:00 Dextrose (D50w Syringe) 25 ml Q15M PRN IV DECREASED GLUCOSE Last administered on 01/13/17 04:53; Admin Dose 25 ML; Start 01/12/17 at 13:00 Dextrose (D50w Syringe) 50 ml Q15M PRN IV DECREASED GLUCOSE; Start 01/12/17 at 13:00 Glucagon (Glucagen) 1 mg Q15M PRN IM DECREASED GLUCOSE; Start 01/12/17 at 13:00 Glucose (Glutose) 15 gm Q15M PRN BUCCAL DECREASED GLUCOSE; Start 01/12/17 at 13: 00 Morphine Sulfate (morphine) 2 mg Q6 PRN IV pain Last administered on 01/19/17 03:13; Admin Dose 2 MG; Start 01/12/17 at 16:00 Morphine Sulfate (morphine) 2 mg Q3H PRN IV PAIN LEVEL 6-10 Last administered on 01/19/17 11:00; Admin Dose 2 MG; Start 01/14/17 at 04:00 Bisacodyl (Dulcolax Supp) 10 mg Q24H PRN [place] CONSTIPATION; Start 01/15/17 at 09: 30 Docusate Sodium (Colace) 100 mg QHS PRN PO CONSTIPATION Last administered on 08:17; Admin Dose 100 MG; Start 01/15/17 at 09:30 Lactulose (Enulose) 20 gm DAILY PRN PO CONSTIPATION Last administered on 01:45; Admin Dose 20 GM; Start 01/15/17 at 09:30 Senna (Senokot) 1 tab DAILY PO Last administered on 01/19/17 09:35; Admin Dose 1 TAB; Start 01/15/17 at 09:30 Sodium Biphosphate/ Sodium Phosphate (Fleet Enema) 133 ml DAILY PRN [place] CONSTIPATION; Start 01/15/17 at 09:30 Amlodipine Besylate (Norvasc) 10 mg DAILY PO Last administered on 01/18/17 08: 53; Admin Dose 10 MG; Start 01/16/17 at 09:00 Hydralazine HCl (Apresoline) 75 mg TID PO Last administered on 01/19/17 12:38 ; Admin Dose 75 MG; Start 01/16/17 at 09:00 Clonidine (Catapres) 0.1 mg Q6H PRN PO ELEVATED SYSTOLIC BP Last administered on 01/16/17 01:45; Admin Dose 0.1 MG; Start 01/16/17 at 01:30 Polyethylene Glycol (Miralax) 17 gm BID PO Last administered on 01/19/17 09:31 ; Admin Dose 17 GM; Start 01/16/17 at 21:00 Lubiprostone 24 mcg 24 mcg BID PO Last administered on 01/19/17 09:32; Admin Dose 24 MCG; Start 01/17/17 at 09:00 Ceftriaxone Sodium (Rocephin) 50 ml @ 100 mls/hr Q24H IVPB Last administered on 01/18/17 17:19; Admin Dose 100 MLS/HR; Start 01/17/17 at 17:00 Zolpidem Tartrate (Ambien) 5 mg HS PRN PO INSOMNIA Last administered on 22:17; Admin Dose 5 MG; Start 01/17/17 at 21:30 Acetaminophen/ Hydrocodone Bitart ([place] (10/325)) 1 tab Q4H PRN PO 4-6 PAIN Last administered on 01/19/17 09:53; Admin Dose 1 TAB; Start 01/19/17 at 10:00 Oxycodone HCl (Oxycontin) 10 mg Q8H PO Last administered on 01/19/17 11:50; Admin Dose 10 MG; Start 01/19/17 at 12:00 Lidocaine (Lidoderm) 1 patch DAILY TD ; Start 01/19/17 at 13:00; Status ELANA VINES NP Jan 19, 2017 13:01
[2017-01-19] MEDS: LIDOCAINE 5% PATCH TD SCH (14:42)
--- NOTE | 2017-01-19 15:46 | RADRPT ---
PROCEDURE: MR Thoracic Spine. CLINICAL INDICATION: Back pain. History of spondylodiscitis TECHNIQUE: An MRI of the thoracic spine was performed on a high field scanner utilizing the follow ing sequences: Sagittal and axial T2 weighted, sagittal an axial T1 weighted and sagittal STIR. Th e images were reviewed on a high-resolution PACS workstation. COMPARISON: CT thoracic spine from 01/12/2017 FINDINGS: Again seen are laminectomies with pedicle screw fixation from T5-T10. Susceptibility artifact from t he orthopedic hardware is seen which limits evaluation of the study. The central canal cannot be aria luated given the significant artifact from T5-T10. Increased T2 signal in the paravertebral soft tis sues at T7-8 is again noted. Suggestion of marrow signal alteration at T7-8 disc space is seen. Diff use hypointense marrow signal in the remainder of the visualized thoracic spine is seen. A hemangiom a is seen at L1 once again. Postsurgical changes in the posterior vertebral subcutaneous soft tissue s is again seen. The visualized central canal appears unremarkable. The visualized thoracic spinal c ord appears to be unremarkable in size and signal intensity. IMPRESSION: 1. Laminectomies from T5-T10 with pedicle screw fixation again seen which is creating susceptibilit y artifact which limits interpretation of the study. 2. Suggestion of marrow signal alteration in the T7-8 disc space which may represent spondylitis/di skitis. 3. Edematous changes in the paravertebral soft tissues at T7-8 again seen. 4. Diffuse hypointense T1 marrow signal which may be from red marrow conversion. RPTAT: HPNM Physician Carloz Date Time Electronically viewed and signed by Physician Carloz on 01/19/2017 15:46 /
[2017-01-19] MEDS: CEFTRIAXONE 2 GM/NS 50 ML IVPB SCH (16:27)
--- NOTE | 2017-01-19 18:02 | CONS ---
Date/Time of Note Date/Time of Note DATE: 01/19/17 TIME: 17:59 Consult Date/Type/Reason Admit Date/Time Jan 12, 2017 at 10:35 Initial Consult Date 01/12/17 Type of Consultation: CARDIOLOGY Ordering Provider: SAM GREEN DO Subjective CARDIOLOGY FOLLOW UP NOTE: Discussed with and staff. Rhythm strip was reviewed. Patient remained in sinus rhythm with no evidence of atrial fibrillation overnight. D/W DR Green. PT needs to have spinal surgery for infection done in 2 days Her slurred speech has resolved now. Denies any chest pain or pressure or palpitation to me. she has severe back pain objective: General: no acute distress HEENT: NC/AT. pupils are equal. round. NECK: NO JVD. no stridor. CV: RRR. systolic murmur; no gallop or rubs. PULM: no wheezing or rhonchi. GI: SOFT, NT, ND, no rebound or guarding Extremity: trace B/L LE edema. no clubbing. neuro: awake and alert, Psych: calm and pleasant rectal: deferred : normal Objective Vital Signs Date Time Temp Pulse Resp B/P Pulse Ox O2 Delivery O2 Flow Rate FiO2 01/19/17 16:22 71 01/19/17 16:04 98.0 18 175/85 96 Intake and Output 01/18/17 01/18/17 01/19/17 15:00 23:00 07:00 Intake Total 900 ml 120 ml Balance 900 ml 120 ml Results/Medications Result Diagram: 01/18/17 0503 01/18/17 0503 Results 24 hrs Laboratory Tests Test 01/18/17 22:07 01/19/17 07:15 01/19/17 08:00 01/19/17 11:04 Bedside Glucose 129 94 150 Prothrombin Time 22.7 H Prothrombin Time Ratio 1.8 INR International Normalized Ratio 1.98 Test 01/19/17 17:09 Bedside Glucose 135 Medications Current Medications Aspirin (Aspirin) 162 mg DAILY PO Last administered on 01/19/17 09:32; Admin Dose 162 MG; Start 01/13/17 at 09:00 Atorvastatin Calcium (Lipitor) 80 mg QHS PO Last administered on 01/18/17 21: 57; Admin Dose 80 MG; Start 01/12/17 at 21:00 Metoclopramide HCl (Reglan) 5 mg BID PO Last administered on 01/19/17 09:32; Admin Dose 5 MG; Start 01/12/17 at 21:00 Metoprolol Tartrate (Lopressor) 100 mg BID PO Last administered on 01/18/17 21 :58; Admin Dose 100 MG; Start 01/12/17 at 21:00 Pantoprazole (Protonix Tab) 40 mg DAILY@06 PO Last administered on 01/19/17 05 :58; Admin Dose 40 MG; Start 01/13/17 at 06:00 Sertraline HCl (Zoloft) 50 mg DAILY PO Last administered on 01/19/17 09:32; Admin Dose 50 MG; Start 01/13/17 at 09:00 Tolterodine Tartrate (Detrol) 2 mg BID PO Last administered on 01/19/17 09:34 ; Admin Dose 2 MG; Start 01/12/17 at 21:00 Diagnostic Test (Pha) (Accu-Chek) 1 ea 02 XX Last administered on 01/18/17 02: 21; Admin Dose 1 EA; Start 01/13/17 at 02:00 Warfarin Sodium (Coumadin) 5 mg DAILY@17 PO Last administered on 01/18/17 18: 24; Admin Dose 5 MG; Start 01/12/17 at 17:00; Status Future Hold Miscellaneous Information 1 ea NOTE XX ; Start 01/12/17 at 13:00 Glucose (Glutose) 15 gm Q15M PRN PO DECREASED GLUCOSE; Start 01/12/17 at 13:00 Glucose (Glutose) 22.5 gm Q15M PRN PO DECREASED GLUCOSE; Start 01/12/17 at 13:00 Dextrose (D50w Syringe) 25 ml Q15M PRN IV DECREASED GLUCOSE Last administered on 01/13/17 04:53; Admin Dose 25 ML; Start 01/12/17 at 13:00 Dextrose (D50w Syringe) 50 ml Q15M PRN IV DECREASED GLUCOSE; Start 01/12/17 at 13:00 Glucagon (Glucagen) 1 mg Q15M PRN IM DECREASED GLUCOSE; Start 01/12/17 at 13:00 Glucose (Glutose) 15 gm Q15M PRN BUCCAL DECREASED GLUCOSE; Start 01/12/17 at 13: 00 Morphine Sulfate (morphine) 2 mg Q6 PRN IV pain Last administered on 01/19/17 03:13; Admin Dose 2 MG; Start 01/12/17 at 16:00 Morphine Sulfate (morphine) 2 mg Q3H PRN IV PAIN LEVEL 6-10 Last administered on 01/19/17 14:42; Admin Dose 2 MG; Start 01/14/17 at 04:00 Bisacodyl (Dulcolax Supp) 10 mg Q24H PRN [place] CONSTIPATION; Start 01/15/17 at 09: 30 Docusate Sodium (Colace) 100 mg QHS PRN PO CONSTIPATION Last administered on 08:17; Admin Dose 100 MG; Start 01/15/17 at 09:30 Lactulose (Enulose) 20 gm DAILY PRN PO CONSTIPATION Last administered on 01:45; Admin Dose 20 GM; Start 01/15/17 at 09:30 Senna (Senokot) 1 tab DAILY PO Last administered on 01/19/17 09:35; Admin Dose 1 TAB; Start 01/15/17 at 09:30 Sodium Biphosphate/ Sodium Phosphate (Fleet Enema) 133 ml DAILY PRN [place] CONSTIPATION; Start 01/15/17 at 09:30 Amlodipine Besylate (Norvasc) 10 mg DAILY PO Last administered on 01/18/17 08: 53; Admin Dose 10 MG; Start 01/16/17 at 09:00 Hydralazine HCl (Apresoline) 75 mg TID PO Last administered on 01/19/17 12:38 ; Admin Dose 75 MG; Start 01/16/17 at 09:00 Clonidine (Catapres) 0.1 mg Q6H PRN PO ELEVATED SYSTOLIC BP Last administered on 01/16/17 01:45; Admin Dose 0.1 MG; Start 01/16/17 at 01:30 Polyethylene Glycol (Miralax) 17 gm BID PO Last administered on 01/19/17 09:31 ; Admin Dose 17 GM; Start 01/16/17 at 21:00 Lubiprostone 24 mcg 24 mcg BID PO Last administered on 01/19/17 09:32; Admin Dose 24 MCG; Start 01/17/17 at 09:00 Ceftriaxone Sodium (Rocephin) 50 ml @ 100 mls/hr Q24H IVPB Last administered on 01/19/17 16:27; Admin Dose 100 MLS/HR; Start 01/17/17 at 17:00 Zolpidem Tartrate (Ambien) 5 mg HS PRN PO INSOMNIA Last administered on 22:17; Admin Dose 5 MG; Start 01/17/17 at 21:30 Acetaminophen/ Hydrocodone Bitart ([place] (10/325)) 1 tab Q4H PRN PO 4-6 PAIN Last administered on 01/19/17 09:53; Admin Dose 1 TAB; Start 01/19/17 at 10:00 Oxycodone HCl (Oxycontin) 10 mg Q8H PO Last administered on 01/19/17 11:50; Admin Dose 10 MG; Start 01/19/17 at 12:00 Lidocaine (Lidoderm) 1 patch DAILY TD Last administered on 01/19/17 14:42; Admin Dose 1 PATCH; Start 01/19/17 at 13:00 Assessment/Plan Chief Complaint/Hosp Course 1. Slurred speech:improved now. ? transient ischemic attack. F/U with neurology rec. 2. End-stage renal disease. HD as per renal 3. Hypertension. stable Continue current blood pressure regimen. 4. History of chronic obstructive pulmonary disease. Continue medical management. 5. History of P afib. currently in NSR. CONT coumadin and adjust INR daily. 6. History of T7 paraplegia. Continue physical therapy. 7. Anemia. defer to IM 8. Dyslipidemia. Continue statin therapy. 09. Diabetes. Continue Accu-Cheks and insulin sliding scale. 10. CV preop evaluation for urgent spinal surgery for infection: pt has multiple risk factors which will place her on at moderate ( to high) risk of CV events. but given persumed infection no further cardiac workup would be indicated. cont with HD prior to the surgery. coumadin is on hold for anticipation for the surgery Thank you for this referral I will continue to follow along with you. TAMERA BAILEY MD [facility] Problems: TAMERA BAILEY MD Jan 19, 2017 18:02
--- NOTE | 2017-01-19 19:07 | CONS ---
Date/Time of Note Date/Time of Note DATE: 01/19/17 TIME: 19:06 Assessment/Plan Assessment/Plan Chief Complaint/Hosp Course SUBJECTIVE DATA: No acute changes. The patient is alert, looks comfortable. No fevers. Antimicrobials: Vancomycin, Rocephin OBJECTIVE DATA: GENERAL: Well-developed, middle-aged, obese woman who is awake, in not distress. HEENT: Head is atraumatic, normocephalic. Sclerae anicteric. Buccal mucosa pink. NECK: Supple. CHEST: Chest rise is symmetrical. Breath sounds diminished at the bases. HEART: S1, S2. ABDOMEN: Soft, bowel sounds present. EXTREMITIES: Without cyanosis. ASSESSMENT AND PLAN: 1. T/p transient ischemic attack. 2. Spinal discitis with osteomyelitis and questionable abscess versus phlegmon as per CT of the abdomen and thoracic spine, started on broad spectrum antibiotics as CT guided needle aspiration biopsy was not done for 4 days. 3. End-stage renal disease, hemodialysis dependent. 4. Diabetes. 5. Anemia. 6. Fecal impaction. 7. C7 paraplegia status post surgical intervention. PLAN: The patient remains stable, covered with broad spectrum antibiotics, f/u neurosurgical rec-s. DW staff Problems: Consultation Date/Type/Reason Admit Date/Time Jan 12, 2017 at 10:35 Initial Consult Date 01/12/17 Type of Consultation: ID Referring Provider: SAM CANTU DO Exam/Review of Systems Vital Signs Vitals Vital Signs Date Time Temp Pulse Resp B/P Pulse Ox O2 Delivery O2 Flow Rate FiO2 01/19/17 18:37 84 158/82 01/19/17 16:04 98.0 18 96 Intake and Output 01/18/17 01/18/17 01/19/17 15:00 23:00 07:00 Intake Total 900 ml 120 ml Balance 900 ml 120 ml Results Result Diagram: 01/18/17 0503 01/18/17 0503 Results 24 hrs Laboratory Tests Test 01/18/17 22:07 01/19/17 07:15 01/19/17 08:00 01/19/17 11:04 Bedside Glucose 129 94 150 Prothrombin Time 22.7 H Prothrombin Time Ratio 1.8 INR International Normalized Ratio 1.98 Test 01/19/17 17:09 Bedside Glucose 135 Medications Medications Current Medications Aspirin (Aspirin) 162 mg DAILY PO Last administered on 01/19/17 09:32; Admin Dose 162 MG; Start 01/13/17 at 09:00 Atorvastatin Calcium (Lipitor) 80 mg QHS PO Last administered on 01/18/17 21: 57; Admin Dose 80 MG; Start 01/12/17 at 21:00 Metoclopramide HCl (Reglan) 5 mg BID PO Last administered on 01/19/17 09:32; Admin Dose 5 MG; Start 01/12/17 at 21:00 Metoprolol Tartrate (Lopressor) 100 mg BID PO Last administered on 01/18/17 21 :58; Admin Dose 100 MG; Start 01/12/17 at 21:00 Pantoprazole (Protonix Tab) 40 mg DAILY@06 PO Last administered on 01/19/17 05 :58; Admin Dose 40 MG; Start 01/13/17 at 06:00 Sertraline HCl (Zoloft) 50 mg DAILY PO Last administered on 01/19/17 09:32; Admin Dose 50 MG; Start 01/13/17 at 09:00 Tolterodine Tartrate (Detrol) 2 mg BID PO Last administered on 01/19/17 09:34 ; Admin Dose 2 MG; Start 01/12/17 at 21:00 Diagnostic Test (Pha) (Accu-Chek) 1 ea 02 XX Last administered on 01/18/17 02: 21; Admin Dose 1 EA; Start 01/13/17 at 02:00 Warfarin Sodium (Coumadin) 5 mg DAILY@17 PO Last administered on 01/18/17 18: 24; Admin Dose 5 MG; Start 01/12/17 at 17:00; Status Future Hold Miscellaneous Information 1 ea NOTE XX ; Start 01/12/17 at 13:00 Glucose (Glutose) 15 gm Q15M PRN PO DECREASED GLUCOSE; Start 01/12/17 at 13:00 Glucose (Glutose) 22.5 gm Q15M PRN PO DECREASED GLUCOSE; Start 01/12/17 at 13:00 Dextrose (D50w Syringe) 25 ml Q15M PRN IV DECREASED GLUCOSE Last administered on 01/13/17 04:53; Admin Dose 25 ML; Start 01/12/17 at 13:00 Dextrose (D50w Syringe) 50 ml Q15M PRN IV DECREASED GLUCOSE; Start 01/12/17 at 13:00 Glucagon (Glucagen) 1 mg Q15M PRN IM DECREASED GLUCOSE; Start 01/12/17 at 13:00 Glucose (Glutose) 15 gm Q15M PRN BUCCAL DECREASED GLUCOSE; Start 01/12/17 at 13: 00 Morphine Sulfate (morphine) 2 mg Q6 PRN IV pain Last administered on 01/19/17 03:13; Admin Dose 2 MG; Start 01/12/17 at 16:00 Morphine Sulfate (morphine) 2 mg Q3H PRN IV PAIN LEVEL 6-10 Last administered on 01/19/17 14:42; Admin Dose 2 MG; Start 01/14/17 at 04:00 Bisacodyl (Dulcolax Supp) 10 mg Q24H PRN [place] CONSTIPATION; Start 01/15/17 at 09: 30 Docusate Sodium (Colace) 100 mg QHS PRN PO CONSTIPATION Last administered on 08:17; Admin Dose 100 MG; Start 01/15/17 at 09:30 Lactulose (Enulose) 20 gm DAILY PRN PO CONSTIPATION Last administered on 01:45; Admin Dose 20 GM; Start 01/15/17 at 09:30 Senna (Senokot) 1 tab DAILY PO Last administered on 01/19/17 09:35; Admin Dose 1 TAB; Start 01/15/17 at 09:30 Sodium Biphosphate/ Sodium Phosphate (Fleet Enema) 133 ml DAILY PRN [place] CONSTIPATION; Start 01/15/17 at 09:30 Amlodipine Besylate (Norvasc) 10 mg DAILY PO Last administered on 01/18/17 08: 53; Admin Dose 10 MG; Start 01/16/17 at 09:00 Hydralazine HCl (Apresoline) 75 mg TID PO Last administered on 01/19/17 12:38 ; Admin Dose 75 MG; Start 01/16/17 at 09:00 Clonidine (Catapres) 0.1 mg Q6H PRN PO ELEVATED SYSTOLIC BP Last administered on 01/16/17 01:45; Admin Dose 0.1 MG; Start 01/16/17 at 01:30 Polyethylene Glycol (Miralax) 17 gm BID PO Last administered on 01/19/17 09:31 ; Admin Dose 17 GM; Start 01/16/17 at 21:00 Lubiprostone 24 mcg 24 mcg BID PO Last administered on 01/19/17 09:32; Admin Dose 24 MCG; Start 01/17/17 at 09:00 Ceftriaxone Sodium (Rocephin) 50 ml @ 100 mls/hr Q24H IVPB Last administered on 01/19/17 16:27; Admin Dose 100 MLS/HR; Start 01/17/17 at 17:00 Zolpidem Tartrate (Ambien) 5 mg HS PRN PO INSOMNIA Last administered on 22:17; Admin Dose 5 MG; Start 01/17/17 at 21:30 Acetaminophen/ Hydrocodone Bitart ([place] ()) 1 tab Q4H PRN PO 4-6 PAIN Last administered on 01/19/17 09:53; Admin Dose 1 TAB; Start 01/19/17 at 10:00 Oxycodone HCl (Oxycontin) 10 mg Q8H PO Last administered on 01/19/17 11:50; Admin Dose 10 MG; Start 01/19/17 at 12:00 Lidocaine (Lidoderm) 1 patch DAILY TD Last administered on 01/19/17 14:42; Admin Dose 1 PATCH; Start 01/19/17 at 13:00 ADALID LEO NP Jan 19, 2017 19:07
[2017-01-19] MEDS: ATORVASTATIN 80 MG TAB PO SCH (19:57)
[2017-01-19 20:49] LABS: PT RATIO 1.8
[2017-01-19 21:38] LABS: INR 1.89; PROTIME 21.9 Sec (12.2-14.2)
[2017-01-19] MEDS: ZOLPIDEM 5 MG TAB PO PRN (22:40)
[2017-01-20] VITALS (15 sets, daily range): BP systolic 131–199; BP diastolic 63–98; PULSE 57–75; RESP 18–20
[2017-01-20] MEDS: HYDROCODONE/APAP (10/325) TAB PO PRN (01:10)
[2017-01-20] MEDS: ACCU-CHEK XX SCH (02:00)
[2017-01-20] MEDS: morphine 2 MG INJ IV PRN ×4 (03:18→23:26)
[2017-01-20] MEDS: oxyCODONE (CR) 10 MG TAB [oxyCONTIN] PO SCH ×3 (04:34→20:27)
[2017-01-20] MEDS: PANTOPRAZOLE (EC) 40 MG TAB PO SCH (05:45)
[2017-01-20 07:37] LABS: BASOPHIL # 0.1 10^3/ul (0.0-0.1); BASOPHILS % 0.9 % (0.0-2.0); EOSINOPHILS # 0.4 10^3/ul (0.0-0.5); HEMATOCRIT 33.5 % (37.0-47.0); HEMOGLOBIN 10.3 g/dl (12.0-16.0); LYMPHOCYTES # 2.7 10^3/ul (0.8-2.9); LYMPHOCYTES % 24.5 % (15.0-51.0); MEAN CORPUSCULAR HGB CONC 30.7 g/dl (32.0-37.0); MEAN CORPUSCULAR VOLUME 94.4 fl (82.0-101.0); MEAN PLATELET VOLUME 8.3 fl (7.4-10.4); MONOCYTE # 0.7 10^3/ul (0.3-0.9); MONOCYTES % 6.6 % (0.0-11.0); NEUTROPHILS % 63.6 % (39.0-77.0); PLATELET COUNT 331 10^3/UL (140-415); RED BLOOD COUNT 3.55 10^6/ul (4.20-5.40); RED CELL DISTRIBUTION WIDTH 14.8 % (11.5-14.5); WHITE BLOOD COUNT 10.9 10^3/ul (4.8-10.8)
[2017-01-20] MEDS: INSULIN ASPART [NOVOLOG] 3 ML PEN SC SCH ×4 (07:55→20:29)
[2017-01-20 07:59] LABS: CALCIUM 8.7 mg/dl (8.4-10.2); CREATININE 3.64 mg/dl (0.44-1.00); MAGNESIUM 2.2 mg/dl (1.7-2.5); PHOSPHORUS 4.6 mg/dl (2.5-4.9); POTASSIUM 3.9 mmol/L (3.5-5.1)
[2017-01-20] MEDS: REPAGLINIDE 1 MG TAB PO SCH ×3 (08:20→17:22)
[2017-01-20] MEDS: ASPIRIN 81 MG TAB PO SCH (08:21)
[2017-01-20] MEDS: SENNA TAB PO SCH (08:21)
[2017-01-20] MEDS: SEVELAMER 800 MG TAB PO SCH ×3 (08:22→17:22)
[2017-01-20] MEDS: SERTRALINE 50 MG TAB PO SCH (08:22)
[2017-01-20] MEDS: LUBIPROSTONE 24 MCG CAP PO SCH ×2 (08:22→20:27)
[2017-01-20] MEDS: METOCLOPRAMIDE 5 MG TAB PO SCH ×2 (08:22→20:26)
[2017-01-20] MEDS: METOPROLOL 100 MG TAB PO SCH ×2 (08:23→20:27)
[2017-01-20] MEDS: AMLODIPINE 10 MG TAB PO SCH (08:23)
[2017-01-20] MEDS: POLYETHYLENE GLYCOL 17 GM PACKET PO SCH ×2 (08:25→20:28)
[2017-01-20] MEDS: LIDOCAINE 5% PATCH TD SCH (08:25)
--- NOTE | 2017-01-20 09:03 | CONS ---
Date/Time of Note Date/Time of Note DATE: 01/20/17 TIME: 09:02 Consult Date/Type/Reason Admit Date/Time Jan 12, 2017 at 10:35 Initial Consult Date 01/12/17 Type of Consultation: CARDIOLOGY Ordering Provider: SAM GREEN DO Subjective CARDIOLOGY FOLLOW UP NOTE: Discussed with and staff. Rhythm strip was reviewed. Patient remained in sinus rhythm with no evidence of atrial fibrillation overnight. D/W DR Green. PT needs to have spinal surgery for infection soon Her slurred speech has resolved now. Denies any chest pain or pressure or palpitation to me. she has severe back pain now objective: General: no acute distress HEENT: NC/AT. pupils are equal. round. NECK: NO JVD. no stridor. CV: RRR. systolic murmur; no gallop or rubs. PULM: no wheezing or rhonchi. GI: SOFT, NT, ND, no rebound or guarding Extremity: trace B/L LE edema. no clubbing. neuro: awake and alert, Psych: calm and pleasant rectal: deferred : normal Objective Vital Signs Date Time Temp Pulse Resp B/P Pulse Ox O2 Delivery O2 Flow Rate FiO2 01/20/17 08:11 69 01/20/17 07:42 98.4 18 178/75 93 Intake and Output 01/19/17 01/19/17 01/20/17 15:00 23:00 07:00 Intake Total 750 ml 900 ml 400 ml Output Total 2500 ml Balance -1750 ml 900 ml 400 ml Results/Medications Result Diagram: 01/20/17 0701/20/17 07 Results 24 hrs Laboratory Tests Test 01/19/17 11:04 01/19/17 17:09 01/19/17 20:25 01/19/17 20:30 Bedside Glucose 150 135 95 Prothrombin Time 21.9 H Prothrombin Time Ratio 1.8 INR International Normalized Ratio 1.89 Test 01/20/17 07:05 01/20/17 08:05 White Blood Count 10.9 H Red Blood Count 3.55 L Hemoglobin 10.3 L Hematocrit 33.5 L Mean Corpuscular Volume 94.4 Mean Corpuscular Hemoglobin 29.0 Mean Corpuscular Hemoglobin Concent 30.7 L Red Cell Distribution Width 14.8 H Platelet Count 331 Mean Platelet Volume 8.3 Neutrophils % 63.6 Lymphocytes % 24.5 Monocytes % 6.6 Eosinophils % 4.0 Basophils % 0.9 Nucleated Red Blood Cells % 0.0 Neutrophils # (Manual) 6.9 Lymphocytes # 2.7 Monocytes # 0.7 Eosinophils # 0.4 Basophils # 0.1 Nucleated Red Blood Cells # 0.0 Sodium Level 134 L Potassium Level 3.9 Chloride Level 101 Carbon Dioxide Level 26 Anion Gap 11 Blood Urea Nitrogen 32 H Creatinine 3.64 H Glucose Level 92 Calcium Level 8.7 Phosphorus Level 4.6 Magnesium Level 2.2 Bedside Glucose 100 Medications Current Medications Aspirin (Aspirin) 162 mg DAILY PO Last administered on 01/20/17 08:21; Admin Dose 162 MG; Start 01/13/17 at 09:00 Atorvastatin Calcium (Lipitor) 80 mg QHS PO Last administered on 01/19/17 19: 57; Admin Dose 80 MG; Start 01/12/17 at 21:00 Metoclopramide HCl (Reglan) 5 mg BID PO Last administered on 01/20/17 08:22; Admin Dose 5 MG; Start 01/12/17 at 21:00 Metoprolol Tartrate (Lopressor) 100 mg BID PO Last administered on 01/20/17 08 :23; Admin Dose 100 MG; Start 01/12/17 at 21:00 Pantoprazole (Protonix Tab) 40 mg DAILY@06 PO Last administered on 01/20/17 05 :45; Admin Dose 40 MG; Start 01/13/17 at 06:00 Sertraline HCl (Zoloft) 50 mg DAILY PO Last administered on 01/20/17 08:22; Admin Dose 50 MG; Start 01/13/17 at 09:00 Tolterodine Tartrate (Detrol) 2 mg BID PO Last administered on 01/19/17 19:55 ; Admin Dose 2 MG; Start 01/12/17 at 21:00 Diagnostic Test (Pha) (Accu-Chek) 1 ea 02 XX Last administered on 01/18/17 02: 21; Admin Dose 1 EA; Start 01/13/17 at 02:00 Warfarin Sodium (Coumadin) 5 mg DAILY@17 PO Last administered on 01/18/17 18: 24; Admin Dose 5 MG; Start 01/12/17 at 17:00; Status Future Hold Miscellaneous Information 1 ea NOTE XX ; Start 01/12/17 at 13:00 Glucose (Glutose) 15 gm Q15M PRN PO DECREASED GLUCOSE; Start 01/12/17 at 13:00 Glucose (Glutose) 22.5 gm Q15M PRN PO DECREASED GLUCOSE; Start 01/12/17 at 13:00 Dextrose (D50w Syringe) 25 ml Q15M PRN IV DECREASED GLUCOSE Last administered on 01/13/17 04:53; Admin Dose 25 ML; Start 01/12/17 at 13:00 Dextrose (D50w Syringe) 50 ml Q15M PRN IV DECREASED GLUCOSE; Start 01/12/17 at 13:00 Glucagon (Glucagen) 1 mg Q15M PRN IM DECREASED GLUCOSE; Start 01/12/17 at 13:00 Glucose (Glutose) 15 gm Q15M PRN BUCCAL DECREASED GLUCOSE; Start 01/12/17 at 13: 00 Morphine Sulfate (morphine) 2 mg Q6 PRN IV pain Last administered on 01/19/17 03:13; Admin Dose 2 MG; Start 01/12/17 at 16:00 Morphine Sulfate (morphine) 2 mg Q3H PRN IV PAIN LEVEL 6-10 Last administered on 01/20/17 03:18; Admin Dose 2 MG; Start 01/14/17 at 04:00 Bisacodyl (Dulcolax Supp) 10 mg Q24H PRN [place] CONSTIPATION; Start 01/15/17 at 09: 30 Docusate Sodium (Colace) 100 mg QHS PRN PO CONSTIPATION Last administered on 08:17; Admin Dose 100 MG; Start 01/15/17 at 09:30 Lactulose (Enulose) 20 gm DAILY PRN PO CONSTIPATION Last administered on 01:45; Admin Dose 20 GM; Start 01/15/17 at 09:30 Senna (Senokot) 1 tab DAILY PO Last administered on 01/20/17 08:21; Admin Dose 1 TAB; Start 01/15/17 at 09:30 Sodium Biphosphate/ Sodium Phosphate (Fleet Enema) 133 ml DAILY PRN [place] CONSTIPATION; Start 01/15/17 at 09:30 Amlodipine Besylate (Norvasc) 10 mg DAILY PO Last administered on 01/20/17 08: 23; Admin Dose 10 MG; Start 01/16/17 at 09:00 Hydralazine HCl (Apresoline) 75 mg TID PO Last administered on 01/20/17 08:24 ; Admin Dose 75 MG; Start 01/16/17 at 09:00 Clonidine (Catapres) 0.1 mg Q6H PRN PO ELEVATED SYSTOLIC BP Last administered on 01/20/17 01:09; Admin Dose 0.1 MG; Start 01/16/17 at 01:30 Polyethylene Glycol (Miralax) 17 gm BID PO Last administered on 01/20/17 08:25 ; Admin Dose 17 GM; Start 01/16/17 at 21:00 Lubiprostone 24 mcg 24 mcg BID PO Last administered on 01/20/17 08:22; Admin Dose 24 MCG; Start 01/17/17 at 09:00 Ceftriaxone Sodium (Rocephin) 50 ml @ 100 mls/hr Q24H IVPB Last administered on 01/19/17 16:27; Admin Dose 100 MLS/HR; Start 01/17/17 at 17:00 Zolpidem Tartrate (Ambien) 5 mg HS PRN PO INSOMNIA Last administered on 22:40; Admin Dose 5 MG; Start 01/17/17 at 21:30 Acetaminophen/ Hydrocodone Bitart ([place] (10/325)) 1 tab Q4H PRN PO 4-6 PAIN Last administered on 01/20/17 01:10; Admin Dose 1 TAB; Start 01/19/17 at 10:00 Oxycodone HCl (Oxycontin) 10 mg Q8H PO Last administered on 01/20/17 04:34; Admin Dose 10 MG; Start 01/19/17 at 12:00 Lidocaine (Lidoderm) 1 patch DAILY TD Last administered on 01/20/17 08:25; Admin Dose 1 PATCH; Start 01/19/17 at 13:00 Assessment/Plan Chief Complaint/Hosp Course 1. Slurred speech:improved now. ? transient ischemic attack. F/U with neurology rec. 2. End-stage renal disease. HD as per renal 3. Hypertension. Continue current blood pressure regimen. HD. 4. History of chronic obstructive pulmonary disease. Continue medical management. 5. History of P afib. currently in NSR. coumadin in on hold in anticipation of neurosurgical intervention. 6. History of T7 paraplegia. Continue physical therapy. 7. Anemia. defer to IM 8. Dyslipidemia. Continue statin therapy. 09. Diabetes. Continue Accu-Cheks and insulin sliding scale. 10. CV preop evaluation for urgent spinal surgery for infection: pt has multiple risk factors which will place her on at moderate ( to high) risk of CV events. but given persumed infection no further cardiac workup would be indicated. cont with HD prior to the surgery. coumadin is on hold for anticipation for the surgery Thank you for this referral I will continue to follow along with you. TAMERA BAILEY MD [facility] Problems: TAMERA BAILEY MD Jan 20, 2017 09:03
--- NOTE | 2017-01-20 09:57 | PN ---
DATE: 01/20/2017 SUBJECTIVE DATA: The patient continues to have pain in her lower back. The patient was seen by Neurosurgery, planning for evaluation of underlying diskitis and surgical correction. No other events noted. The patient had hemodialysis yesterday, tolerated it well. OBJECTIVE DATA: VITAL SIGNS: Blood pressure is 178/75, respirations 18, pulse 66, temperature 98.5. HEENT: Head is normocephalic. NECK: Supple. HEART: Regular rate. LUNGS: Showed diminished breath sounds at the base. ABDOMEN: Soft, nontender to palpation. No rebound or guarding. EXTREMITIES: Negative for clubbing, cyanosis. No edema. DERMATOLOGIC: Clean. No rashes. MUSCULOSKELETAL: No joint effusion. NEUROLOGIC: No change in exam. ASSESSMENT AND PLAN: 1. Diskitis, L5-S1. The patient has been seen by Neurosurgery. Plan for surgical correction. Continue current treatment plan. Continue antibiotics. Continue pain control. 2. Chronic pain syndrome with severe back pain, likely due to recent diskitis. Continue current pain regimen. 3. End-stage renal disease. Continue hemodialysis. The patient had hemodialysis yesterday, plan for next dialysis on . 4. Hypertension. Continue current blood pressure regimen. 5. Paroxysmal atrial fibrillation. Currently in sinus rhythm. The patient's Coumadin is on hold in anticipation of surgery. 6. Possible transient ischemic attack, resolved. 7. Anemia. Monitor H and H levels. Continue Epogen. 8. Mineral bone disorder. Monitor calcium and phosphorus levels. 9. History of T7 partial paraplegia. Continue physical therapy. 10. Diabetes. Continue Accu-Cheks and insulin sliding scale. 11. Status post shingles. 12. Gastrointestinal and deep venous thrombosis prophylaxis. Continue proton pump inhibitor and sequential leg squeezers. Dictated By: Buck Seals DO /saul/josee /Document#: [id number]
[2017-01-20 10:38] LABS: INR 1.57; PROTIME 18.9 Sec (12.2-14.2); PT RATIO 1.5
[2017-01-20] MEDS: TOLTERODINE 2 MG TAB PO SCH ×3 (10:50→23:25)
--- NOTE | 2017-01-20 13:16 | PN ---
Date/Time of Note Date/Time of Note DATE: 01/20/17 TIME: 13:16 Assessment/Plan VTE Prophylaxis VTE Prophylaxis Intervention: ambulation, SCD's Lines/Catheters IV Catheter Type (from Nrs): [place] Urinary Cath still in place: No Assessment/Plan Chief Complaint/Hosp Course 52 y/o female with history DM, ESRD, CAD, CVA, and recently started on Valtrex for Shingles. Per history, pt admitted for possible CVA/TIA and given ASA in ED. CT brain on arrival showed no acute bleed. CT abd/thoracic spine showed known previous T5-10 posterior rods/screws per pt done 10/05/2016 at [facility] for infection and had 2 weeks iv antibiotics post op. Called to evaluate regarding possible T/L spine osteo/diskitis and possible SI joint infection noted as well. Pt with worsening back pain and some recent chills but no fever. Pt requires max assistance with FWW since surgery. pmh/psx: per hpi/chart meds: see med recon ros: per hpi/chart Problems: Exam/Review of Systems Vital Signs Vitals Vital Signs Date Time Temp Pulse Resp B/P Pulse Ox O2 Delivery O2 Flow Rate FiO2 01/20/17 12:36 68 01/20/17 12:04 98.2 19 146/70 96 Intake and Output 01/19/17 01/19/17 01/20/17 15:00 23:00 07:00 Intake Total 750 ml 900 ml 400 ml Output Total 2500 ml Balance -1750 ml 900 ml 400 ml Results Result Diagram: 01/20/17 0705 01/20/17 0705 Results 24 hrs Laboratory Tests Test 01/19/17 17:09 01/19/17 20:25 01/19/17 20:30 01/20/17 07:05 Bedside Glucose 135 95 Prothrombin Time 21.9 H Prothrombin Time Ratio 1.8 INR International Normalized Ratio 1.89 White Blood Count 10.9 H Red Blood Count 3.55 L Hemoglobin 10.3 L Hematocrit 33.5 L Mean Corpuscular Volume 94.4 Mean Corpuscular Hemoglobin 29.0 Mean Corpuscular Hemoglobin Concent 30.7 L Red Cell Distribution Width 14.8 H Platelet Count 331 Mean Platelet Volume 8.3 Neutrophils % 63.6 Lymphocytes % 24.5 Monocytes % 6.6 Eosinophils % 4.0 Basophils % 0.9 Nucleated Red Blood Cells % 0.0 Neutrophils # (Manual) 6.9 Lymphocytes # 2.7 Monocytes # 0.7 Eosinophils # 0.4 Basophils # 0.1 Nucleated Red Blood Cells # 0.0 Sodium Level 134 L Potassium Level 3.9 Chloride Level 101 Carbon Dioxide Level 26 Anion Gap 11 Blood Urea Nitrogen 32 H Creatinine 3.64 H Glucose Level 92 Calcium Level 8.7 Phosphorus Level 4.6 Magnesium Level 2.2 Test 01/20/17 08:05 01/20/17 10:00 01/20/17 12:21 Bedside Glucose 100 137 Prothrombin Time 18.9 H Prothrombin Time Ratio 1.5 INR International Normalized Ratio 1.57 Medications Medications Current Medications Aspirin (Aspirin) 162 mg DAILY PO Last administered on 01/20/17 08:21; Admin Dose 162 MG; Start 01/13/17 at 09:00 Atorvastatin Calcium (Lipitor) 80 mg QHS PO Last administered on 01/19/17 19: 57; Admin Dose 80 MG; Start 01/12/17 at 21:00 Metoclopramide HCl (Reglan) 5 mg BID PO Last administered on 01/20/17 08:22; Admin Dose 5 MG; Start 01/12/17 at 21:00 Metoprolol Tartrate (Lopressor) 100 mg BID PO Last administered on 01/20/17 08 :23; Admin Dose 100 MG; Start 01/12/17 at 21:00 Pantoprazole (Protonix Tab) 40 mg DAILY@06 PO Last administered on 01/20/17 05 :45; Admin Dose 40 MG; Start 01/13/17 at 06:00 Sertraline HCl (Zoloft) 50 mg DAILY PO Last administered on 01/20/17 08:22; Admin Dose 50 MG; Start 01/13/17 at 09:00 Tolterodine Tartrate (Detrol) 2 mg BID PO Last administered on 01/20/17 10:50 ; Admin Dose 2 MG; Start 01/12/17 at 21:00 Diagnostic Test (Pha) (Accu-Chek) 1 ea 02 XX Last administered on 01/18/17 02: 21; Admin Dose 1 EA; Start 01/13/17 at 02:00 Warfarin Sodium (Coumadin) 5 mg DAILY@17 PO Last administered on 01/18/17 18: 24; Admin Dose 5 MG; Start 01/12/17 at 17:00; Status Future Hold Miscellaneous Information 1 ea NOTE XX ; Start 01/12/17 at 13:00 Glucose (Glutose) 15 gm Q15M PRN PO DECREASED GLUCOSE; Start 01/12/17 at 13:00 Glucose (Glutose) 22.5 gm Q15M PRN PO DECREASED GLUCOSE; Start 01/12/17 at 13:00 Dextrose (D50w Syringe) 25 ml Q15M PRN IV DECREASED GLUCOSE Last administered on 01/13/17 04:53; Admin Dose 25 ML; Start 01/12/17 at 13:00 Dextrose (D50w Syringe) 50 ml Q15M PRN IV DECREASED GLUCOSE; Start 01/12/17 at 13:00 Glucagon (Glucagen) 1 mg Q15M PRN IM DECREASED GLUCOSE; Start 01/12/17 at 13:00 Glucose (Glutose) 15 gm Q15M PRN BUCCAL DECREASED GLUCOSE; Start 01/12/17 at 13: 00 Morphine Sulfate (morphine) 2 mg Q6 PRN IV pain Last administered on 01/20/17 10:51; Admin Dose 2 MG; Start 01/12/17 at 16:00 Morphine Sulfate (morphine) 2 mg Q3H PRN IV PAIN LEVEL 6-10 Last administered on 01/20/17 03:18; Admin Dose 2 MG; Start 01/14/17 at 04:00 Bisacodyl (Dulcolax Supp) 10 mg Q24H PRN [place] CONSTIPATION; Start 01/15/17 at 09: 30 Docusate Sodium (Colace) 100 mg QHS PRN PO CONSTIPATION Last administered on 08:17; Admin Dose 100 MG; Start 01/15/17 at 09:30 Lactulose (Enulose) 20 gm DAILY PRN PO CONSTIPATION Last administered on 01:45; Admin Dose 20 GM; Start 01/15/17 at 09:30 Senna (Senokot) 1 tab DAILY PO Last administered on 01/20/17 08:21; Admin Dose 1 TAB; Start 01/15/17 at 09:30 Sodium Biphosphate/ Sodium Phosphate (Fleet Enema) 133 ml DAILY PRN [place] CONSTIPATION; Start 01/15/17 at 09:30 Amlodipine Besylate (Norvasc) 10 mg DAILY PO Last administered on 01/20/17 08: 23; Admin Dose 10 MG; Start 01/16/17 at 09:00 Hydralazine HCl (Apresoline) 75 mg TID PO Last administered on 01/20/17 12:28 ; Admin Dose 75 MG; Start 01/16/17 at 09:00 Clonidine (Catapres) 0.1 mg Q6H PRN PO ELEVATED SYSTOLIC BP Last administered on 01/20/17 01:09; Admin Dose 0.1 MG; Start 01/16/17 at 01:30 Polyethylene Glycol (Miralax) 17 gm BID PO Last administered on 01/20/17 08:25 ; Admin Dose 17 GM; Start 01/16/17 at 21:00 Lubiprostone 24 mcg 24 mcg BID PO Last administered on 01/20/17 08:22; Admin Dose 24 MCG; Start 01/17/17 at 09:00 Ceftriaxone Sodium (Rocephin) 50 ml @ 100 mls/hr Q24H IVPB Last administered on 01/19/17 16:27; Admin Dose 100 MLS/HR; Start 01/17/17 at 17:00 Zolpidem Tartrate (Ambien) 5 mg HS PRN PO INSOMNIA Last administered on 22:40; Admin Dose 5 MG; Start 01/17/17 at 21:30 Acetaminophen/ Hydrocodone Bitart ([place] (10/325)) 1 tab Q4H PRN PO 4-6 PAIN Last administered on 01/20/17 01:10; Admin Dose 1 TAB; Start 01/19/17 at 10:00 Oxycodone HCl (Oxycontin) 10 mg Q8H PO Last administered on 01/20/17 12:27; Admin Dose 10 MG; Start 01/19/17 at 12:00 Lidocaine 1 patch 1 patch DAILY TD Last administered on 01/20/17 08:25; Admin Dose 1 PATCH; Start 01/19/17 at 13:00 Phytonadione/ Dextrose (Vitamin K/D5W) 51 ml @ 102 mls/hr ONCE IVPB ; Start at 13:30; Status ELANA VINES NP Jan 20, 2017 13:16
[2017-01-20] MEDS ORDERED: PHYTONADIONE 10 MG in DEXTROSE 5% 50 ML IVPB SCH (13:30)
[2017-01-20 15:30] LABS: CALCIUM 8.6 mg/dl (8.4-10.2); CREATININE 3.74 mg/dl (0.44-1.00); POTASSIUM 4.3 mmol/L (3.5-5.1)
[2017-01-20] MEDS: CEFTRIAXONE 2 GM/NS 50 ML IVPB SCH (17:21)
--- NOTE | 2017-01-20 17:58 | CONS ---
Date/Time of Note Date/Time of Note DATE: 01/20/17 TIME: 17:57 Assessment/Plan Assessment/Plan Additional Assessment/Plan Additional Assessment/Plan Additional Assessment/Plan IMPRESSION: 1. Fecal impaction, compounded by pain medication.resolved 2. Possible transient ischemic attack, for which she is on aspirin and Lipitor. 3. Hypertension. 4. Atrial fibrillation, for which patient is on Coumadin. 5. End-stage renal disease, for which patient is on dialysis. 6. Possible osteomyelitis, T7-8. 7. T7 paraplegia. 8. Anemia related to probable chronic disease. 9. Diabetes mellitus. 10. Chronic pain syndrome. 11. Osteomyelitis and discitis L5-S1 Plan Continue with Amitiza and MiraLAX Patient is scheduled for spine surgery tomorrow Consultation Date/Type/Reason Admit Date/Time Jan 12, 2017 at 10:35 Initial Consult Date 01/12/17 Type of Consultation: CARDIOLOGY Referring Provider: SAM CANTU DO 24 HR Interval Summary Free Text/Dictation Good bowel movement Constitutional: no complaints Exam/Review of Systems Vital Signs Vitals Vital Signs Date Time Temp Pulse Resp B/P Pulse Ox O2 Delivery O2 Flow Rate FiO2 01/20/17 16:17 57 01/20/17 15:29 97.0 18 136/63 97 Intake and Output 01/19/17 01/19/17 01/20/17 15:00 23:00 07:00 Intake Total 750 ml 900 ml 400 ml Output Total 2500 ml Balance -1750 ml 900 ml 400 ml Exam Constitutional: alert, oriented, well developed Psych: nl mood/affect, no complaints Head: atraumatic, normocephalic Eyes: EOMI, PERRL, nl conjunctiva, nl lids, nl sclera ENMT: nl external ears & nose, nl lips & teeth, nl nasal mucosa & septum Neck: non-tender, supple Respiratory: clear to auscultation, normal air movement Cardiovascular: nl pulses, regular rate and rhythm Gastrointestinal: nl liver, spleen, non-tender, soft Musculoskeletal: nl extremities to inspection, nl gait and stance Extremities: normal pulses 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: [employer] II-XII intact, nl mental status, nl speech, nl strength Skin: nl turgor, No rash or lesions Lymph: nl lymph nodes Results Result Diagram: 01/20/17 0705 01/20/17 1457 Results 24 hrs Laboratory Tests Test 9/12/17 20:25 01/19/17 20:30 01/20/17 07:05 01/20/17 08:05 Prothrombin Time 21.9 H Prothrombin Time Ratio 1.8 INR International Normalized Ratio 1.89 Bedside Glucose 95 100 White Blood Count 10.9 H Red Blood Count 3.55 L Hemoglobin 10.3 L Hematocrit 33.5 L Mean Corpuscular Volume 94.4 Mean Corpuscular Hemoglobin 29.0 Mean Corpuscular Hemoglobin Concent 30.7 L Red Cell Distribution Width 14.8 H Platelet Count 331 Mean Platelet Volume 8.3 Neutrophils % 63.6 Lymphocytes % 24.5 Monocytes % 6.6 Eosinophils % 4.0 Basophils % 0.9 Nucleated Red Blood Cells % 0.0 Neutrophils # (Manual) 6.9 Lymphocytes # 2.7 Monocytes # 0.7 Eosinophils # 0.4 Basophils # 0.1 Nucleated Red Blood Cells # 0.0 Sodium Level 134 L Potassium Level 3.9 Chloride Level 101 Carbon Dioxide Level 26 Anion Gap 11 Blood Urea Nitrogen 32 H Creatinine 3.64 H Glucose Level 92 Calcium Level 8.7 Phosphorus Level 4.6 Magnesium Level 2.2 Test 01/20/17 10:00 01/20/17 12:21 01/20/17 14:57 01/20/17 17:19 Prothrombin Time 18.9 H Prothrombin Time Ratio 1.5 INR International Normalized Ratio 1.57 Bedside Glucose 137 93 Sodium Level 132 L Potassium Level 4.3 Chloride Level 101 Carbon Dioxide Level 25 Anion Gap 10 Blood Urea Nitrogen 37 H Creatinine 3.74 H Glucose Level 123 Calcium Level 8.6 Medications Medications Current Medications Aspirin (Aspirin) 162 mg DAILY PO Last administered on 01/20/17 08:21; Admin Dose 162 MG; Start 01/13/17 at 09:00 Atorvastatin Calcium (Lipitor) 80 mg QHS PO Last administered on 01/19/17 19: 57; Admin Dose 80 MG; Start 01/12/17 at 21:00 Metoclopramide HCl (Reglan) 5 mg BID PO Last administered on 01/20/17 08:22; Admin Dose 5 MG; Start 01/12/17 at 21:00 Metoprolol Tartrate (Lopressor) 100 mg BID PO Last administered on 01/20/17 08 :23; Admin Dose 100 MG; Start 01/12/17 at 21:00 Pantoprazole (Protonix Tab) 40 mg DAILY@06 PO Last administered on 01/20/17 05 :45; Admin Dose 40 MG; Start 01/13/17 at 06:00 Sertraline HCl (Zoloft) 50 mg DAILY PO Last administered on 01/20/17 08:22; Admin Dose 50 MG; Start 01/13/17 at 09:00 Tolterodine Tartrate (Detrol) 2 mg BID PO Last administered on 01/20/17 10:50 ; Admin Dose 2 MG; Start 01/12/17 at 21:00 Diagnostic Test (Pha) (Accu-Chek) 1 ea 02 XX Last administered on 01/18/17 02: 21; Admin Dose 1 EA; Start 01/13/17 at 02:00 Warfarin Sodium (Coumadin) 5 mg DAILY@17 PO Last administered on 01/18/17 18: 24; Admin Dose 5 MG; Start 01/12/17 at 17:00; Status Future Hold Miscellaneous Information 1 ea NOTE XX ; Start 01/12/17 at 13:00 Glucose (Glutose) 15 gm Q15M PRN PO DECREASED GLUCOSE; Start 01/12/17 at 13:00 Glucose (Glutose) 22.5 gm Q15M PRN PO DECREASED GLUCOSE; Start 01/12/17 at 13:00 Dextrose (D50w Syringe) 25 ml Q15M PRN IV DECREASED GLUCOSE Last administered on 01/13/17 04:53; Admin Dose 25 ML; Start 01/12/17 at 13:00 Dextrose (D50w Syringe) 50 ml Q15M PRN IV DECREASED GLUCOSE; Start 01/12/17 at 13:00 Glucagon (Glucagen) 1 mg Q15M PRN IM DECREASED GLUCOSE; Start 01/12/17 at 13:00 Glucose (Glutose) 15 gm Q15M PRN BUCCAL DECREASED GLUCOSE; Start 01/12/17 at 13: 00 Morphine Sulfate (morphine) 2 mg Q6 PRN IV pain Last administered on 01/20/17 10:51; Admin Dose 2 MG; Start 01/12/17 at 16:00 Morphine Sulfate (morphine) 2 mg Q3H PRN IV PAIN LEVEL 6-10 Last administered on 01/20/17 03:18; Admin Dose 2 MG; Start 01/14/17 at 04:00 Bisacodyl (Dulcolax Supp) 10 mg Q24H PRN [place] CONSTIPATION; Start 01/15/17 at 09: 30 Docusate Sodium (Colace) 100 mg QHS PRN PO CONSTIPATION Last administered on 08:17; Admin Dose 100 MG; Start 01/15/17 at 09:30 Lactulose (Enulose) 20 gm DAILY PRN PO CONSTIPATION Last administered on 01:45; Admin Dose 20 GM; Start 01/15/17 at 09:30 Senna (Senokot) 1 tab DAILY PO Last administered on 01/20/17 08:21; Admin Dose 1 TAB; Start 01/15/17 at 09:30 Sodium Biphosphate/ Sodium Phosphate (Fleet Enema) 133 ml DAILY PRN [place] CONSTIPATION; Start 01/15/17 at 09:30 Amlodipine Besylate (Norvasc) 10 mg DAILY PO Last administered on 01/20/17 08: 23; Admin Dose 10 MG; Start 01/16/17 at 09:00 Hydralazine HCl (Apresoline) 75 mg TID PO Last administered on 01/20/17 12:28 ; Admin Dose 75 MG; Start 01/16/17 at 09:00 Clonidine (Catapres) 0.1 mg Q6H PRN PO ELEVATED SYSTOLIC BP Last administered on 01/20/17 01:09; Admin Dose 0.1 MG; Start 01/16/17 at 01:30 Polyethylene Glycol (Miralax) 17 gm BID PO Last administered on 01/20/17 08:25 ; Admin Dose 17 GM; Start 01/16/17 at 21:00 Lubiprostone 24 mcg 24 mcg BID PO Last administered on 01/20/17 08:22; Admin Dose 24 MCG; Start 01/17/17 at 09:00 Ceftriaxone Sodium (Rocephin) 50 ml @ 100 mls/hr Q24H IVPB Last administered on 01/20/17 17:21; Admin Dose 100 MLS/HR; Start 01/17/17 at 17:00 Zolpidem Tartrate (Ambien) 5 mg HS PRN PO INSOMNIA Last administered on 22:40; Admin Dose 5 MG; Start 01/17/17 at 21:30 Acetaminophen/ Hydrocodone Bitart ([place] (10/325)) 1 tab Q4H PRN PO 4-6 PAIN Last administered on 01/20/17 01:10; Admin Dose 1 TAB; Start 01/19/17 at 10:00 Oxycodone HCl (Oxycontin) 10 mg Q8H PO Last administered on 01/20/17 12:27; Admin Dose 10 MG; Start 01/19/17 at 12:00 Lidocaine 1 patch 1 patch DAILY TD Last administered on 01/20/17 08:25; Admin Dose 1 PATCH; Start 01/19/17 at 13:00 Phytonadione/ Dextrose (Vitamin K/D5W) 51 ml @ 102 mls/hr ONCE IVPB Last administered on 01/20/17 16:01; Admin Dose 102 MLS/HR; Start 01/20/17 at 13:30 ; Stop 01/20/17 at 23:00 ELIESER REDDY MD Jan 20, 2017 17:58
[2017-01-20] MEDS: ATORVASTATIN 80 MG TAB PO SCH (20:27)
--- NOTE | 2017-01-20 21:21 | PN ---
DATE: 01/20/2017 SUBJECTIVE DATA: No acute changes overnight. No fevers. Patient is lying comfortably in bed. LABORATORY AND DIAGNOSTIC DATA: WBC today 10.9, neutrophils 63.6, platelets 331. MICROBIOLOGY: Cultures have been negative. INDWELLINGS: Right chest PermCath. ANTIMICROBIALS: 1. Rocephin. 2. Vancomycin. OBJECTIVE DATA: GENERAL: Well-developed, obese, middle-aged woman, who is awake, in no distress. HEENT: Head atraumatic, normocephalic. Sclerae anicteric. Buccal mucosa pink. NECK: Supple. CHEST: Rise symmetrical. Breath sounds clear. HEART: S1, S2. ABDOMEN: Soft, bowel sounds present. EXTREMITIES: Without cyanosis. ASSESSMENT: 1. Spinal diskitis, with osteomyelitis and questionable abscess versus phlegmon, as per radiographic findings, remains on broad- spectrum antibiotics. Neurosurgery on case. 2. Status post transient ischemic attack. 3. End-stage renal disease, hemodialysis-dependent. 4. Anemia. 5. C7 paraplegia. PLAN: Patient remains stable. She is on appropriate broad- spectrum coverage with antibiotics. Neurosurgery follows. Continue present care. Dictated By: Nini Velázquez NP /saul/yang /Document#: [id number]
[2017-01-21] VITALS (19 sets, daily range): BP systolic 125–171; BP diastolic 65–84; PULSE 63–88; RESP 18–19
[2017-01-21] MEDS: ACCU-CHEK XX SCH (02:00)
[2017-01-21] MEDS: oxyCODONE (CR) 10 MG TAB [oxyCONTIN] PO SCH ×3 (03:49→20:19)
[2017-01-21] MEDS: PANTOPRAZOLE (EC) 40 MG TAB PO SCH (05:43)
[2017-01-21 07:03] LABS: BASOPHIL # 0.1 10^3/ul (0.0-0.1); BASOPHILS % 0.8 % (0.0-2.0); EOSINOPHILS # 0.3 10^3/ul (0.0-0.5); EOSINOPHILS % 3.3 % (0.0-7.0); HEMATOCRIT 32.2 % (37.0-47.0); HEMOGLOBIN 10.2 g/dl (12.0-16.0); LYMPHOCYTES # 2.2 10^3/ul (0.8-2.9); MEAN CORPUSCULAR HEMOGLOBIN 30.3 pg (29.0-33.0); MEAN CORPUSCULAR HGB CONC 31.7 g/dl (32.0-37.0); MEAN CORPUSCULAR VOLUME 95.5 fl (82.0-101.0); MEAN PLATELET VOLUME 8.2 fl (7.4-10.4); MONOCYTE # 0.7 10^3/ul (0.3-0.9); MONOCYTES % 7.4 % (0.0-11.0); NEUTROPHIL # 6.3 10^3/ul (1.6-7.5); NEUTROPHILS % 65.2 % (39.0-77.0); PLATELET COUNT 329 10^3/UL (140-415); RED BLOOD COUNT 3.37 10^6/ul (4.20-5.40); RED CELL DISTRIBUTION WIDTH 14.6 % (11.5-14.5); WHITE BLOOD COUNT 9.6 10^3/ul (4.8-10.8)
[2017-01-21 07:17] LABS: INR 1.16; PROTIME 14.9 Sec (12.2-14.2); PT RATIO 1.2
[2017-01-21 07:22] LABS: CALCIUM 8.8 mg/dl (8.4-10.2); CREATININE 4.1 mg/dl (0.44-1.00); MAGNESIUM 2.2 mg/dl (1.7-2.5); PHOSPHORUS 5.4 mg/dl (2.5-4.9); POTASSIUM 4.2 mmol/L (3.5-5.1)
[2017-01-21] MEDS: morphine 2 MG INJ IV PRN ×3 (07:43→22:41)
[2017-01-21] MEDS: REPAGLINIDE 1 MG TAB PO SCH ×3 (07:46→17:36)
[2017-01-21] MEDS: SEVELAMER 800 MG TAB PO SCH ×3 (07:46→17:36)
--- NOTE | 2017-01-21 08:12 | CONS ---
Date/Time of Note Date/Time of Note DATE: 01/21/17 TIME: 08:11 Consult Date/Type/Reason Admit Date/Time Jan 12, 2017 at 10:35 Initial Consult Date 01/12/17 Type of Consultation: CARDIOLOGY Ordering Provider: SAM SEALS DO Subjective CARDIOLOGY FOLLOW UP NOTE: Discussed with and staff and Dr Seals Rhythm strip was reviewed. Patient remained in sinus rhythm with no evidence of atrial fibrillation overnight. Her slurred speech has resolved now. Denies any chest pain or pressure or palpitation to me. she c/o severe back pain now objective: General: no acute distress HEENT: NC/AT. pupils are equal. round. NECK: NO JVD. no stridor. CV: RRR. systolic murmur; no gallop or rubs. PULM: no wheezing or rhonchi. GI: SOFT, NT, ND, no rebound or guarding Extremity: trace B/L LE edema. no clubbing. neuro: awake and alert, Psych: calm and pleasant rectal: deferred : normal Objective Vital Signs Date Time Temp Pulse Resp B/P Pulse Ox O2 Delivery O2 Flow Rate FiO2 01/21/17 07:31 97.9 60 18 171/79 98 Intake and Output 01/20/17 01/20/17 01/21/17 15:00 23:00 07:00 Intake Total 651 ml 600 ml Balance 651 ml 600 ml Results/Medications Result Diagram: 01/21/17 0617 01/21/17 0617 Results 24 hrs Laboratory Tests Test 01/20/17 10:00 01/20/17 12:21 01/20/17 14:57 01/20/17 17:19 Prothrombin Time 18.9 H Prothrombin Time Ratio 1.5 INR International Normalized Ratio 1.57 Bedside Glucose 137 93 Sodium Level 132 L Potassium Level 4.3 Chloride Level 101 Carbon Dioxide Level 25 Anion Gap 10 Blood Urea Nitrogen 37 H Creatinine 3.74 H Glucose Level 123 Calcium Level 8.6 Test 01/20/17 20:25 01/21/17 06:17 01/21/17 07:53 Bedside Glucose 120 147 White Blood Count 9.6 Red Blood Count 3.37 L Hemoglobin 10.2 L Hematocrit 32.2 L Mean Corpuscular Volume 95.5 Mean Corpuscular Hemoglobin 30.3 Mean Corpuscular Hemoglobin Concent 31.7 L Red Cell Distribution Width 14.6 H Platelet Count 329 Mean Platelet Volume 8.2 Neutrophils % 65.2 Lymphocytes % 23.0 Monocytes % 7.4 Eosinophils % 3.3 Basophils % 0.8 Nucleated Red Blood Cells % 0.0 Neutrophils # 6.3 Lymphocytes # 2.2 Monocytes # 0.7 Eosinophils # 0.3 Basophils # 0.1 Nucleated Red Blood Cells # 0.0 Prothrombin Time 14.9 #H Prothrombin Time Ratio 1.2 INR International Normalized Ratio 1.16 Sodium Level 134 L Potassium Level 4.2 Chloride Level 103 Carbon Dioxide Level 24 Anion Gap 11 Blood Urea Nitrogen 43 H Creatinine 4.10 H Glucose Level 116 Calcium Level 8.8 Phosphorus Level 5.4 H Magnesium Level 2.2 Medications Current Medications Aspirin (Aspirin) 162 mg DAILY PO Last administered on 01/20/17 08:21; Admin Dose 162 MG; Start 01/13/17 at 09:00 Atorvastatin Calcium (Lipitor) 80 mg QHS PO Last administered on 01/20/17 20: 27; Admin Dose 80 MG; Start 01/12/17 at 21:00 Metoclopramide HCl (Reglan) 5 mg BID PO Last administered on 01/20/17 20:26; Admin Dose 5 MG; Start 01/12/17 at 21:00 Metoprolol Tartrate (Lopressor) 100 mg BID PO Last administered on 01/20/17 20 :27; Admin Dose 100 MG; Start 01/12/17 at 21:00 Pantoprazole (Protonix Tab) 40 mg DAILY@06 PO Last administered on 01/21/17 05 :43; Admin Dose 40 MG; Start 01/13/17 at 06:00 Sertraline HCl (Zoloft) 50 mg DAILY PO Last administered on 01/20/17 08:22; Admin Dose 50 MG; Start 01/13/17 at 09:00 Tolterodine Tartrate (Detrol) 2 mg BID PO Last administered on 01/20/17 23:25 ; Admin Dose 2 MG; Start 01/12/17 at 21:00 Diagnostic Test (Pha) (Accu-Chek) 1 ea 02 XX Last administered on 01/18/17 02: 21; Admin Dose 1 EA; Start 01/13/17 at 02:00 Warfarin Sodium (Coumadin) 5 mg DAILY@17 PO Last administered on 01/18/17 18: 24; Admin Dose 5 MG; Start 01/12/17 at 17:00; Status Future Hold Miscellaneous Information 1 ea NOTE XX ; Start 01/12/17 at 13:00 Glucose (Glutose) 15 gm Q15M PRN PO DECREASED GLUCOSE; Start 01/12/17 at 13:00 Glucose (Glutose) 22.5 gm Q15M PRN PO DECREASED GLUCOSE; Start 01/12/17 at 13:00 Dextrose (D50w Syringe) 25 ml Q15M PRN IV DECREASED GLUCOSE Last administered on 01/13/17 04:53; Admin Dose 25 ML; Start 01/12/17 at 13:00 Dextrose (D50w Syringe) 50 ml Q15M PRN IV DECREASED GLUCOSE; Start 01/12/17 at 13:00 Glucagon (Glucagen) 1 mg Q15M PRN IM DECREASED GLUCOSE; Start 01/12/17 at 13:00 Glucose (Glutose) 15 gm Q15M PRN BUCCAL DECREASED GLUCOSE; Start 01/12/17 at 13: 00 Morphine Sulfate (morphine) 2 mg Q6 PRN IV pain Last administered on 01/20/17 23:26; Admin Dose 2 MG; Start 01/12/17 at 16:00 Morphine Sulfate (morphine) 2 mg Q3H PRN IV PAIN LEVEL 6-10 Last administered on 01/21/17 07:43; Admin Dose 2 MG; Start 01/14/17 at 04:00 Bisacodyl (Dulcolax Supp) 10 mg Q24H PRN [place] CONSTIPATION; Start 01/15/17 at 09: 30 Docusate Sodium (Colace) 100 mg QHS PRN PO CONSTIPATION Last administered on 08:17; Admin Dose 100 MG; Start 01/15/17 at 09:30 Lactulose (Enulose) 20 gm DAILY PRN PO CONSTIPATION Last administered on 01:45; Admin Dose 20 GM; Start 01/15/17 at 09:30 Senna (Senokot) 1 tab DAILY PO Last administered on 01/20/17 08:21; Admin Dose 1 TAB; Start 01/15/17 at 09:30 Sodium Biphosphate/ Sodium Phosphate (Fleet Enema) 133 ml DAILY PRN [place] CONSTIPATION; Start 01/15/17 at 09:30 Amlodipine Besylate (Norvasc) 10 mg DAILY PO Last administered on 01/20/17 08: 23; Admin Dose 10 MG; Start 01/16/17 at 09:00 Hydralazine HCl (Apresoline) 75 mg TID PO Last administered on 01/20/17 20:28 ; Admin Dose 75 MG; Start 01/16/17 at 09:00 Clonidine (Catapres) 0.1 mg Q6H PRN PO ELEVATED SYSTOLIC BP Last administered on 01/20/17 01:09; Admin Dose 0.1 MG; Start 01/16/17 at 01:30 Polyethylene Glycol (Miralax) 17 gm BID PO Last administered on 01/20/17 20:28 ; Admin Dose 17 GM; Start 01/16/17 at 21:00 Lubiprostone 24 mcg 24 mcg BID PO Last administered on 01/20/17 20:27; Admin Dose 24 MCG; Start 01/17/17 at 09:00 Ceftriaxone Sodium (Rocephin) 50 ml @ 100 mls/hr Q24H IVPB Last administered on 01/20/17 17:21; Admin Dose 100 MLS/HR; Start 01/17/17 at 17:00 Zolpidem Tartrate (Ambien) 5 mg HS PRN PO INSOMNIA Last administered on 22:40; Admin Dose 5 MG; Start 01/17/17 at 21:30 Acetaminophen/ Hydrocodone Bitart ([place] (10/325)) 1 tab Q4H PRN PO 4-6 PAIN Last administered on 01/20/17 01:10; Admin Dose 1 TAB; Start 01/19/17 at 10:00 Oxycodone HCl (Oxycontin) 10 mg Q8H PO Last administered on 01/21/17 03:49; Admin Dose 10 MG; Start 01/19/17 at 12:00 Lidocaine (Lidoderm) 1 patch DAILY TD Last administered on 01/20/17 08:25; Admin Dose 1 PATCH; Start 01/19/17 at 13:00 Assessment/Plan Chief Complaint/Hosp Course 1. Slurred speech:improved now. ? transient ischemic attack. F/U with neurology rec. 2. End-stage renal disease. HD as per renal 3. Hypertension. Continue current blood pressure regimen. HD. 4. History of chronic obstructive pulmonary disease. Continue medical management. 5. History of P afib. currently in NSR. coumadin in on hold in anticipation of neurosurgical intervention. 6. History of T7 paraplegia. Continue physical therapy. 7. Anemia. defer to IM 8. Dyslipidemia. Continue statin therapy. 09. Diabetes. Continue Accu-Cheks and insulin sliding scale. 10. CV preop evaluation for urgent spinal surgery for infection: pt has multiple risk factors which will place her on at moderate ( to high) risk of CV events. but given persumed infection, no further cardiac workup would be indicated. cont with HD prior to the surgery. coumadin is on hold for anticipation for the surgery Thank you for this referral I will continue to follow along with you. TAMERA BAILEY MD [facility] Problems: TAMERA BAILEY MD Jan 21, 2017 08:12
[2017-01-21] MEDS: ONDANSETRON 4 MG INJ IV PRN (08:35)
[2017-01-21] MEDS: INSULIN ASPART [NOVOLOG] 3 ML PEN SC SCH ×4 (08:42→20:16)
[2017-01-21] MEDS: METOPROLOL 100 MG TAB PO SCH ×2 (09:00→20:18)
[2017-01-21] MEDS: AMLODIPINE 10 MG TAB PO SCH (09:00)
[2017-01-21] MEDS: TOLTERODINE 2 MG TAB PO SCH ×2 (09:26→20:18)
[2017-01-21] MEDS: LIDOCAINE 5% PATCH TD SCH (09:26)
[2017-01-21] MEDS: LUBIPROSTONE 24 MCG CAP PO SCH ×2 (09:26→20:18)
[2017-01-21] MEDS: POLYETHYLENE GLYCOL 17 GM PACKET PO SCH ×2 (09:26→20:17)
[2017-01-21] MEDS: METOCLOPRAMIDE 5 MG TAB PO SCH ×2 (09:27→20:19)
[2017-01-21] MEDS: SERTRALINE 50 MG TAB PO SCH (09:27)
[2017-01-21] MEDS: SENNA TAB PO SCH (09:27)
[2017-01-21] MEDS: ASPIRIN 81 MG TAB PO SCH (09:29)
--- NOTE | 2017-01-21 09:39 | PN ---
DATE: 01/21/2017 SUBJECTIVE DATA: The patient continues to have lower back pain, pending surgery. The patient had hemodialysis today, tolerated it well. OBJECTIVE DATA: VITAL SIGNS: Blood pressure is 171/79, respirations 18, pulse 60, temperature 97.9. HEENT: Head is normocephalic. NECK: Supple. HEART: Regular rate. LUNGS: Showed diminished breath sounds at the base. ABDOMEN: Soft, nontender to palpation. No rebound or guarding. EXTREMITIES: Negative for clubbing, cyanosis. No edema. DERMATOLOGIC: No rashes. MUSCULOSKELETAL: Positive tenderness to palpation in the mid thoracic lumbar region. LABORATORY AND DIAGNOSTIC DATA: Reviewed. ASSESSMENT AND PLAN: 1. Diskitis, L5-S1. The patient seen by Neurosurgery, pending surgical correction possibly tomorrow. 2. Chronic pain syndrome. History of back pain. Continue current pain regimen. 3. End-stage renal disease. The patient is on hemodialysis. Continue current medical management. 4. Hypertension. Blood pressure is elevated. Continue current blood pressure regimen. We will adjust as needed. 5. Paroxysmal atrial fibrillation. Currently in sinus rhythm. The patient's Coumadin is on hold in anticipation of surgery tomorrow. 6. Possible transient ischemic attack, resolved. 7. Anemia. Monitor H and H levels. Continue Epogen. 8. Mineral bone disorder. Continue to monitor calcium and phosphorus levels. 9. History of T7 partial paraplegia. Continue physical therapy. 10. Diabetes. Continue current insulin regimen. 11. Gastrointestinal and deep venous thrombosis prophylaxis. 12. Status post shingles. Dictated By: Buck Seals DO /saul/josee /Document#: [id number]
--- NOTE | 2017-01-21 15:44 | CONS ---
Date/Time of Note Date/Time of Note DATE: 01/21/17 TIME: 15:42 Assessment/Plan Assessment/Plan Chief Complaint/Hosp Course SUBJECTIVE DATA: No acute changes. The patient is sleeping, looks comfortable. No fevers. Antimicrobials: Vancomycin, Rocephin OBJECTIVE DATA: GENERAL: Well-developed, middle-aged, obese woman who is awake, in not distress. HEENT: Head is atraumatic, normocephalic. Sclerae anicteric. Buccal mucosa pink. NECK: Supple. CHEST: Chest rise is symmetrical. Breath sounds diminished at the bases. HEART: S1, S2. ABDOMEN: Soft, bowel sounds present. EXTREMITIES: Without cyanosis. ASSESSMENT AND PLAN: 1. S/p transient ischemic attack. 2. Spinal discitis with osteomyelitis and questionable abscess versus phlegmon 3. End-stage renal disease, hemodialysis dependent. 4. Diabetes. 5. Anemia. 6. UTI==> Enterococcus==> on Vanco. 7. C7 paraplegia status post surgical intervention. PLAN: The patient remains stable, continue antibiotics, f/u urine cx, neurosurgical rec-s==> pending surgery. DW staff Problems: Consultation Date/Type/Reason Admit Date/Time Jan 12, 2017 at 10:35 Initial Consult Date 01/12/17 Type of Consultation: ID Referring Provider: SAM CANTU DO Exam/Review of Systems Vital Signs Vitals Vital Signs Date Time Temp Pulse Resp B/P Pulse Ox O2 Delivery O2 Flow Rate FiO2 01/21/17 15:09 98.7 69 19 129/67 96 Intake and Output 01/20/17 01/20/17 01/21/17 14:59 22:59 06:59 Intake Total 651 ml 600 ml Balance 651 ml 600 ml Results Result Diagram: 01/21/1761601/21/1717 Results 24 hrs Laboratory Tests Test 01/20/17 17:19 01/20/17 20:25 01/21/17 06:17 01/21/17 07:53 Bedside Glucose 93 120 147 White Blood Count 9.6 Red Blood Count 3.37 L Hemoglobin 10.2 L Hematocrit 32.2 L Mean Corpuscular Volume 95.5 Mean Corpuscular Hemoglobin 30.3 Mean Corpuscular Hemoglobin Concent 31.7 L Red Cell Distribution Width 14.6 H Platelet Count 329 Mean Platelet Volume 8.2 Neutrophils % 65.2 Lymphocytes % 23.0 Monocytes % 7.4 Eosinophils % 3.3 Basophils % 0.8 Nucleated Red Blood Cells % 0.0 Neutrophils # 6.3 Lymphocytes # 2.2 Monocytes # 0.7 Eosinophils # 0.3 Basophils # 0.1 Nucleated Red Blood Cells # 0.0 Prothrombin Time 14.9 #H Prothrombin Time Ratio 1.2 INR International Normalized Ratio 1.16 Sodium Level 134 L Potassium Level 4.2 Chloride Level 103 Carbon Dioxide Level 24 Anion Gap 11 Blood Urea Nitrogen 43 H Creatinine 4.10 H Glucose Level 116 Calcium Level 8.8 Phosphorus Level 5.4 H Magnesium Level 2.2 Test 01/21/17 12:13 Bedside Glucose 180 Medications Medications Current Medications Aspirin (Aspirin) 162 mg DAILY PO Last administered on 01/21/17 09:29; Admin Dose 162 MG; Start 01/13/17 at 09:00 Atorvastatin Calcium (Lipitor) 80 mg QHS PO Last administered on 01/20/17 20: 27; Admin Dose 80 MG; Start 01/12/17 at 21:00 Metoclopramide HCl (Reglan) 5 mg BID PO Last administered on 01/21/17 09:27; Admin Dose 5 MG; Start 01/12/17 at 21:00 Metoprolol Tartrate (Lopressor) 100 mg BID PO Last administered on 01/20/17 20 :27; Admin Dose 100 MG; Start 01/12/17 at 21:00 Pantoprazole (Protonix Tab) 40 mg DAILY@06 PO Last administered on 01/21/17 05 :43; Admin Dose 40 MG; Start 01/13/17 at 06:00 Sertraline HCl (Zoloft) 50 mg DAILY PO Last administered on 01/21/17 09:27; Admin Dose 50 MG; Start 01/13/17 at 09:00 Tolterodine Tartrate (Detrol) 2 mg BID PO Last administered on 01/21/17 09:26 ; Admin Dose 2 MG; Start 01/12/17 at 21:00 Diagnostic Test (Pha) (Accu-Chek) 1 ea 02 XX Last administered on 01/18/17 02: 21; Admin Dose 1 EA; Start 01/13/17 at 02:00 Warfarin Sodium (Coumadin) 5 mg DAILY@17 PO Last administered on 9/11/17at 18: 24; Admin Dose 5 MG; Start 01/12/17 at 17:00; Status Future Hold Miscellaneous Information 1 ea NOTE XX ; Start 01/12/17 at 13:00 Glucose (Glutose) 15 gm Q15M PRN PO DECREASED GLUCOSE; Start 01/12/17 at 13:00 Glucose (Glutose) 22.5 gm Q15M PRN PO DECREASED GLUCOSE; Start 01/12/17 at 13:00 Dextrose (D50w Syringe) 25 ml Q15M PRN IV DECREASED GLUCOSE Last administered on 01/13/17 04:53; Admin Dose 25 ML; Start 01/12/17 at 13:00 Dextrose (D50w Syringe) 50 ml Q15M PRN IV DECREASED GLUCOSE; Start 01/12/17 at 13:00 Glucagon (Glucagen) 1 mg Q15M PRN IM DECREASED GLUCOSE; Start 01/12/17 at 13:00 Glucose (Glutose) 15 gm Q15M PRN BUCCAL DECREASED GLUCOSE; Start 01/12/17 at 13: 00 Morphine Sulfate (morphine) 2 mg Q6 PRN IV pain Last administered on 01/20/17 23:26; Admin Dose 2 MG; Start 01/12/17 at 16:00 Morphine Sulfate (morphine) 2 mg Q3H PRN IV PAIN LEVEL 6-10 Last administered on 01/21/17 07:43; Admin Dose 2 MG; Start 01/14/17 at 04:00 Bisacodyl (Dulcolax Supp) 10 mg Q24H PRN [place] CONSTIPATION; Start 01/15/17 at 09: 30 Docusate Sodium (Colace) 100 mg QHS PRN PO CONSTIPATION Last administered on 08:17; Admin Dose 100 MG; Start 01/15/17 at 09:30 Lactulose (Enulose) 20 gm DAILY PRN PO CONSTIPATION Last administered on 01:45; Admin Dose 20 GM; Start 01/15/17 at 09:30 Senna (Senokot) 1 tab DAILY PO Last administered on 01/21/17 09:27; Admin Dose 1 TAB; Start 01/15/17 at 09:30 Sodium Biphosphate/ Sodium Phosphate (Fleet Enema) 133 ml DAILY PRN [place] CONSTIPATION; Start 01/15/17 at 09:30 Amlodipine Besylate (Norvasc) 10 mg DAILY PO Last administered on 01/20/17 08: 23; Admin Dose 10 MG; Start 01/16/17 at 09:00 Hydralazine HCl (Apresoline) 75 mg TID PO Last administered on 01/21/17 13:48 ; Admin Dose 75 MG; Start 01/16/17 at 09:00 Clonidine (Catapres) 0.1 mg Q6H PRN PO ELEVATED SYSTOLIC BP Last administered on 01/20/17 01:09; Admin Dose 0.1 MG; Start 01/16/17 at 01:30 Polyethylene Glycol (Miralax) 17 gm BID PO Last administered on 01/21/17 09:26 ; Admin Dose 17 GM; Start 01/16/17 at 21:00 Lubiprostone 24 mcg 24 mcg BID PO Last administered on 01/21/17 09:26; Admin Dose 24 MCG; Start 01/17/17 at 09:00 Ceftriaxone Sodium (Rocephin) 50 ml @ 100 mls/hr Q24H IVPB Last administered on 01/20/17 17:21; Admin Dose 100 MLS/HR; Start 01/17/17 at 17:00 Zolpidem Tartrate (Ambien) 5 mg HS PRN PO INSOMNIA Last administered on 22:40; Admin Dose 5 MG; Start 01/17/17 at 21:30 Acetaminophen/ Hydrocodone Bitart ([place] (10/325)) 1 tab Q4H PRN PO 4-6 PAIN Last administered on 01/20/17 01:10; Admin Dose 1 TAB; Start 01/19/17 at 10:00 Oxycodone HCl (Oxycontin) 10 mg Q8H PO Last administered on 01/21/17 12:16; Admin Dose 10 MG; Start 01/19/17 at 12:00 Lidocaine (Lidoderm) 1 patch DAILY TD Last administered on 01/21/17 09:26; Admin Dose 1 PATCH; Start 01/19/17 at 13:00 Ondansetron HCl (Zofran Inj) 4 mg Q6H PRN IV NAUSEA AND/OR VOMITING Last administered on 01/21/17 08:35; Admin Dose 4 MG; Start 01/21/17 at 08:30 Miscellaneous Information (*Rx Drug Level Order Reminder*) VANCO RANDOM W/ AM LABS... ONCE ONCE XX ; Start 01/22/17 at 05:00; Stop 01/22/17 at 05:01 ADALID LEO NP Jan 21, 2017 15:44
[2017-01-21] MEDS: CEFTRIAXONE 2 GM/NS 50 ML IVPB SCH (16:31)
[2017-01-21] MEDS: ATORVASTATIN 80 MG TAB PO SCH (20:18)
[2017-01-22] VITALS (46 sets, daily range): BP systolic 123–188; BP diastolic 53–89; PULSE 63–92; RESP 9–19
[2017-01-22] MEDS: ACCU-CHEK XX SCH (02:00)
[2017-01-22] MEDS: oxyCODONE (CR) 10 MG TAB [oxyCONTIN] PO SCH ×3 (04:00→23:08)
[2017-01-22] MEDS: NITROGLYCERIN 2% 1 GM OINT PKT TD SCH ×3 (04:16→18:06)
[2017-01-22] MEDS: PANTOPRAZOLE (EC) 40 MG TAB PO SCH (05:02)
[2017-01-22] MEDS ORDERED: DESFLURANE 15 MIN ONE (07:00)
[2017-01-22] MEDS ORDERED: CEFAZOLIN 1 GM INJ ONE (07:00)
[2017-01-22] MEDS: REPAGLINIDE 1 MG TAB PO SCH ×3 (07:25→18:07)
[2017-01-22] MEDS: SEVELAMER 800 MG TAB PO SCH ×3 (07:55→18:06)
[2017-01-22] MEDS: INSULIN ASPART [NOVOLOG] 3 ML PEN SC SCH ×4 (07:55→21:00)
--- NOTE | 2017-01-22 08:38 | CONS ---
Date/Time of Note Date/Time of Note DATE: 01/22/17 TIME: 08:37 Consult Date/Type/Reason Admit Date/Time Jan 12, 2017 at 10:35 Initial Consult Date 01/12/17 Type of Consultation: cardiology Ordering Provider: SAM SEALS DO Subjective CARDIOLOGY FOLLOW UP NOTE: Discussed with and staff and Dr Seals Rhythm strip was reviewed. Patient remained in sinus rhythm with no evidence of atrial fibrillation overnight. she denies any chest pain or pressure or palpitation to me. she c/o severe back pain now and is awaiting surgery objective: General: no acute distress HEENT: NC/AT. pupils are equal. round. NECK: NO JVD. no stridor. CV: RRR. systolic murmur; no gallop or rubs. PULM: no wheezing or rhonchi. GI: SOFT, NT, ND, no rebound or guarding Extremity: trace B/L LE edema. no clubbing. neuro: awake and alert, Psych: calm and pleasant rectal: deferred : normal Objective Vital Signs Date Time Temp Pulse Resp B/P Pulse Ox O2 Delivery O2 Flow Rate FiO2 01/22/17 07:42 98.4 70 19 147/78 93 Intake and Output 01/21/17 01/21/17 01/22/17 15:00 23:00 07:00 Intake Total 950 ml 500 ml Balance 950 ml 500 ml Results/Medications Result Diagram: 01/21/17 0617 01/21/17 0617 Results 24 hrs Laboratory Tests Test 01/21/17 12:13 01/21/17 17:17 01/21/17 20:16 01/22/17 05:29 Bedside Glucose 180 74 115 Random Vancomycin Level 15.3 Test 01/22/17 08:00 Bedside Glucose 89 Medications Current Medications Aspirin (Aspirin) 162 mg DAILY PO Last administered on 01/21/17 09:29; Admin Dose 162 MG; Start 01/13/17 at 09:00 Atorvastatin Calcium (Lipitor) 80 mg QHS PO Last administered on 01/21/17 20: 18; Admin Dose 80 MG; Start 01/12/17 at 21:00 Metoclopramide HCl (Reglan) 5 mg BID PO Last administered on 01/21/17 20:19; Admin Dose 5 MG; Start 01/12/17 at 21:00 Metoprolol Tartrate (Lopressor) 100 mg BID PO Last administered on 01/20/17 20 :27; Admin Dose 100 MG; Start 01/12/17 at 21:00 Pantoprazole (Protonix Tab) 40 mg DAILY@06 PO Last administered on 01/21/17 05 :43; Admin Dose 40 MG; Start 01/13/17 at 06:00 Sertraline HCl (Zoloft) 50 mg DAILY PO Last administered on 01/21/17 09:27; Admin Dose 50 MG; Start 01/13/17 at 09:00 Tolterodine Tartrate (Detrol) 2 mg BID PO Last administered on 01/21/17 20:18 ; Admin Dose 2 MG; Start 01/12/17 at 21:00 Diagnostic Test (Pha) (Accu-Chek) 1 ea 02 XX Last administered on 01/18/17 02: 21; Admin Dose 1 EA; Start 01/13/17 at 02:00 Warfarin Sodium (Coumadin) 5 mg DAILY@17 PO Last administered on 01/18/17 18: 24; Admin Dose 5 MG; Start 01/12/17 at 17:00; Status Future Hold Miscellaneous Information 1 ea NOTE XX ; Start 01/12/17 at 13:00 Glucose (Glutose) 15 gm Q15M PRN PO DECREASED GLUCOSE; Start 01/12/17 at 13:00 Glucose (Glutose) 22.5 gm Q15M PRN PO DECREASED GLUCOSE; Start 01/12/17 at 13:00 Dextrose (D50w Syringe) 25 ml Q15M PRN IV DECREASED GLUCOSE Last administered on 01/13/17 04:53; Admin Dose 25 ML; Start 01/12/17 at 13:00 Dextrose (D50w Syringe) 50 ml Q15M PRN IV DECREASED GLUCOSE; Start 01/12/17 at 13:00 Glucagon (Glucagen) 1 mg Q15M PRN IM DECREASED GLUCOSE; Start 01/12/17 at 13:00 Glucose (Glutose) 15 gm Q15M PRN BUCCAL DECREASED GLUCOSE; Start 01/12/17 at 13: 00 Morphine Sulfate (morphine) 2 mg Q6 PRN IV pain Last administered on 01/21/17 22:41; Admin Dose 2 MG; Start 01/12/17 at 16:00 Morphine Sulfate (morphine) 2 mg Q3H PRN IV PAIN LEVEL 6-10 Last administered on 01/21/17 07:43; Admin Dose 2 MG; Start 01/14/17 at 04:00 Bisacodyl (Dulcolax Supp) 10 mg Q24H PRN [place] CONSTIPATION; Start 01/15/17 at 09: 30 Docusate Sodium (Colace) 100 mg QHS PRN PO CONSTIPATION Last administered on 08:17; Admin Dose 100 MG; Start 01/15/17 at 09:30 Lactulose (Enulose) 20 gm DAILY PRN PO CONSTIPATION Last administered on 01:45; Admin Dose 20 GM; Start 01/15/17 at 09:30 Senna (Senokot) 1 tab DAILY PO Last administered on 01/21/17 09:27; Admin Dose 1 TAB; Start 01/15/17 at 09:30 Sodium Biphosphate/ Sodium Phosphate (Fleet Enema) 133 ml DAILY PRN [place] CONSTIPATION; Start 01/15/17 at 09:30 Amlodipine Besylate (Norvasc) 10 mg DAILY PO Last administered on 01/20/17 08: 23; Admin Dose 10 MG; Start 01/16/17 at 09:00 Hydralazine HCl (Apresoline) 75 mg TID PO Last administered on 01/21/17 20:18 ; Admin Dose 75 MG; Start 01/16/17 at 09:00 Clonidine (Catapres) 0.1 mg Q6H PRN PO ELEVATED SYSTOLIC BP Last administered on 01/21/17 23:43; Admin Dose 0.1 MG; Start 01/16/17 at 01:30 Polyethylene Glycol (Miralax) 17 gm BID PO Last administered on 01/21/17 20:17 ; Admin Dose 17 GM; Start 01/16/17 at 21:00 Lubiprostone 24 mcg 24 mcg BID PO Last administered on 01/21/17 20:18; Admin Dose 24 MCG; Start 01/17/17 at 09:00 Ceftriaxone Sodium (Rocephin) 50 ml @ 100 mls/hr Q24H IVPB Last administered on 01/21/17 16:31; Admin Dose 100 MLS/HR; Start 01/17/17 at 17:00 Zolpidem Tartrate (Ambien) 5 mg HS PRN PO INSOMNIA Last administered on 22:40; Admin Dose 5 MG; Start 01/17/17 at 21:30 Acetaminophen/ Hydrocodone Bitart ([place] (10/325)) 1 tab Q4H PRN PO 4-6 PAIN Last administered on 01/20/17 01:10; Admin Dose 1 TAB; Start 01/19/17 at 10:00 Oxycodone HCl (Oxycontin) 10 mg Q8H PO Last administered on 01/21/17 20:19; Admin Dose 10 MG; Start 01/19/17 at 12:00 Lidocaine (Lidoderm) 1 patch DAILY TD Last administered on 01/21/17 09:26; Admin Dose 1 PATCH; Start 01/19/17 at 13:00 Ondansetron HCl (Zofran Inj) 4 mg Q6H PRN IV NAUSEA AND/OR VOMITING Last administered on 01/21/17 08:35; Admin Dose 4 MG; Start 01/21/17 at 08:30 Nitroglycerin (Nitroglycerin 2% Oint) 1 inch Q6 TD Last administered on 04:16; Admin Dose 1 INCH; Start 01/22/17 at 04:00 Assessment/Plan Chief Complaint/Hosp Course 1. Slurred speech:improved now. ? transient ischemic attack. F/U with neurology rec. 2. End-stage renal disease. HD as per renal 3. Hypertension. Continue current blood pressure regimen. HD. 4. History of chronic obstructive pulmonary disease. Continue medical management. 5. History of P afib. currently in NSR. coumadin in on hold in anticipation of neurosurgical intervention. 6. History of T7 paraplegia. Continue physical therapy. 7. Anemia. defer to IM 8. Dyslipidemia. Continue statin therapy. 09. Diabetes. Continue Accu-Cheks and insulin sliding scale. 10. CV preop evaluation for urgent spinal surgery for infection: pt has multiple risk factors which will place her on at moderate ( to high) risk of CV events. but given persumed infection, no further cardiac workup would be indicated. cont with HD prior to the surgery. coumadin is on hold for anticipation for the surgery Thank you for this referral I will continue to follow along with you. TAMERA BAILEY MD [facility] Problems: TAMERA BAILEY MD Jan 22, 2017 08:38
[2017-01-22] MEDS: TOLTERODINE 2 MG TAB PO SCH ×2 (09:00→23:18)
[2017-01-22] MEDS: POLYETHYLENE GLYCOL 17 GM PACKET PO SCH ×2 (09:00→20:25)
[2017-01-22] MEDS: SENNA TAB PO SCH (09:00)
[2017-01-22] MEDS: ASPIRIN 81 MG TAB PO SCH (09:00)
[2017-01-22] MEDS: METOCLOPRAMIDE 5 MG TAB PO SCH ×2 (09:00→22:04)
[2017-01-22] MEDS: LUBIPROSTONE 24 MCG CAP PO SCH ×2 (09:00→20:24)
[2017-01-22] MEDS: SERTRALINE 50 MG TAB PO SCH (09:00)
[2017-01-22] MEDS: AMLODIPINE 10 MG TAB PO SCH (09:00)
[2017-01-22] MEDS: METOPROLOL 100 MG TAB PO SCH ×2 (09:00→20:52)
--- NOTE | 2017-01-22 09:37 | PN ---
DATE: 01/22/2017 SUBJECTIVE DATA: The patient is stable. No events overnight. The patient is scheduled for surgery later today. OBJECTIVE DATA: VITAL SIGNS: Blood pressure is 147/78, pulse 63, respirations 19, temperature 98.4. HEENT: Head is normocephalic. NECK: Supple. HEART: Regular rate. LUNGS: Showed diminished breath sounds at the base. ABDOMEN: Soft, nontender to palpation. No rebound or guarding. EXTREMITIES: Negative for clubbing, cyanosis. No edema. DERMATOLOGIC: Clean. No rashes. MUSCULOSKELETAL: No joint effusion. NEUROLOGIC: No change in exam. MEDICATIONS: Reviewed. LABORATORY AND DIAGNOSTIC DATA: Reviewed. No new labs. ASSESSMENT AND PLAN: 1. Diskitis L5-S1 . The patient has been seen by Neurosurgery, pending surgical correction today. 2. Chronic back pain. Continue current pain regimen. 3. End-stage renal disease. Patient had hemodialysis yesterday, tolerated well. Plan for dialysis tomorrow. 4. Hypertension. Continue current blood pressure regimen. Continue current pain regimen. 5. Paroxysmal atrial fibrillation. Currently in sinus rhythm. Continue current medical management. Patient's Coumadin is on hold in anticipation of surgery. 6. History of transient ischemic attack. Continue medical management. Resolved. 7. Anemia. Monitor H and H levels. Continue Epogen. 8. Mineral bone disorder. Continue to monitor calcium and phosphorus levels. 9. T10 partial paraplegia. Continue to monitor. Continue physical therapy. 10. Diabetes. Continue current insulin regimen. 11. Gastrointestinal and deep venous thrombosis prophylaxis. 12. Status post shingles. Dictated By: Buck Seals DO /saul/josee /Document#: [id number]
[2017-01-22] MEDS: DEXTROSE 5%-0.45% NACL 1,000 ML IV SCH (10:00)
[2017-01-22] MEDS: LIDOCAINE 5% PATCH TD SCH (10:06)
--- NOTE | 2017-01-22 10:45 | HPN ---
Date/Time of Note Date/Time of Note DATE: 01/22/17 TIME: 10:44 Interval H&P Admission Note Neurosurgery Preop Note INR stable Pt cleared for surgery No significant change CAROLYN ECHEVARRIA MD Jan 22, 2017 10:45
[2017-01-22] MEDS ORDERED: NALOXONE (0.4 MG/ML) INJ IV PRN (11:00)
[2017-01-22] MEDS ORDERED: NACL 0.9% 3 ML SYG IV SCH (11:00)
[2017-01-22] MEDS ORDERED: ROPIVACAINE 0.5 % 30 ML VIAL ONE (11:01)
[2017-01-22] MEDS ORDERED: GELATIN SIZE 100 SPONGE ONE (11:01)
[2017-01-22] MEDS ORDERED: POLYMYXIN/BACITRACIN 1L IRRIG ONE (11:01)
[2017-01-22] MEDS ORDERED: THROMBIN 5000 UNIT VIAL ONE (11:01)
[2017-01-22] MEDS ORDERED: LIDOCAINE 2% (SDV) 5 ML INJ ONE (11:39)
[2017-01-22] MEDS ORDERED: PROPOFOL 20 ML ONE (11:39)
[2017-01-22] MEDS ORDERED: ROCURONIUM 50 MG INJ ONE (11:39)
[2017-01-22 12:27] LABS: INR 1.12; PROTIME 14.4 Sec (12.2-14.2); PT RATIO 1.1
[2017-01-22 12:28] LABS: PARTIAL THROMBOPLASTIN TIME 33.1 Sec (25.0-35.0)
[2017-01-22] MEDS ORDERED: LABETALOL HCL 20MG INJ ONE (12:28)
[2017-01-22] MEDS ORDERED: PHENYLephrine (100 MCG/ML) 5ML SYG ONE (12:34)
--- NOTE | 2017-01-22 13:26 | CONS ---
Date/Time of Note Date/Time of Note DATE: 01/22/17 TIME: 13:25 Assessment/Plan Assessment/Plan Chief Complaint/Hosp Course SUBJECTIVE DATA: No acute changes. No fevers. Antimicrobials: Vancomycin, Rocephin OBJECTIVE DATA: GENERAL: Well-developed, middle-aged, obese woman who is awake, in not distress. HEENT: Head is atraumatic, normocephalic. Sclerae anicteric. Buccal mucosa pink. NECK: Supple. CHEST: Chest rise is symmetrical. Breath sounds diminished at the bases. HEART: S1, S2. ABDOMEN: Soft, bowel sounds present. EXTREMITIES: Without cyanosis. ASSESSMENT AND PLAN: 1. S/p transient ischemic attack. 2. Spinal discitis with osteomyelitis and questionable abscess versus phlegmon 3. End-stage renal disease, hemodialysis dependent. 4. Diabetes. 5. Anemia. 6. UTI==> VRE 7. C7 paraplegia status post surgical intervention. PLAN: Will change Vanco to Zyvox, continue abx, neurosurgical rec-s==> pending surgery. staff Problems: Consultation Date/Type/Reason Admit Date/Time Jan 12, 2017 at 10:35 Initial Consult Date 01/12/17 Type of Consultation: ID Referring Provider: SAM CANTU DO Exam/Review of Systems Vital Signs Vitals Vital Signs Date Time Temp Pulse Resp B/P Pulse Ox O2 Delivery O2 Flow Rate FiO2 01/22/17 08:00 63 01/22/17 07:42 98.4 19 147/78 93 Intake and Output 01/21/17 01/21/17 01/22/17 15:00 23:00 07:00 Intake Total 950 ml 500 ml Balance 950 ml 500 ml Results Result Diagram: 01/21/17 0617 01/22/17 1134 Results 24 hrs Laboratory Tests Test 01/21/17 17:17 01/21/17 20:16 01/22/17 05:29 01/22/17 08:00 Bedside Glucose 74 115 89 Random Vancomycin Level 15.3 Test 01/22/17 11:34 Prothrombin Time 14.4 H Prothrombin Time Ratio 1.1 INR International Normalized Ratio 1.12 Activated Partial Thromboplast Time 33.1 Potassium Level 4.0 Medications Medications Current Medications Aspirin (Aspirin) 162 mg DAILY PO Last administered on 01/21/17t 09:29; Admin Dose 162 MG; Start 01/13/17 at 09:00 Atorvastatin Calcium (Lipitor) 80 mg QHS PO Last administered on 01/21/17 20: 18; Admin Dose 80 MG; Start 01/12/17 at 21:00 Metoclopramide HCl (Reglan) 5 mg BID PO Last administered on 01/21/17 20:19; Admin Dose 5 MG; Start 01/12/17 at 21:00 Metoprolol Tartrate (Lopressor) 100 mg BID PO Last administered on 01/20/17 20 :27; Admin Dose 100 MG; Start 01/12/17 at 21:00 Pantoprazole (Protonix Tab) 40 mg DAILY@06 PO Last administered on 01/21/17 05 :43; Admin Dose 40 MG; Start 01/13/17 at 06:00 Sertraline HCl (Zoloft) 50 mg DAILY PO Last administered on 01/21/17 09:27; Admin Dose 50 MG; Start 01/13/17 at 09:00 Tolterodine Tartrate (Detrol) 2 mg BID PO Last administered on 01/21/17 20:18 ; Admin Dose 2 MG; Start 01/12/17 at 21:00 Diagnostic Test (Pha) (Accu-Chek) 1 ea 02 XX Last administered on 01/18/17 02: 21; Admin Dose 1 EA; Start 01/13/17 at 02:00 Warfarin Sodium (Coumadin) 5 mg DAILY@17 PO Last administered on 01/18/17 18: 24; Admin Dose 5 MG; Start 01/12/17 at 17:00; Status Future Hold Miscellaneous Information 1 ea NOTE XX ; Start 01/12/17 at 13:00 Glucose (Glutose) 15 gm Q15M PRN PO DECREASED GLUCOSE; Start 01/12/17 at 13:00 Glucose (Glutose) 22.5 gm Q15M PRN PO DECREASED GLUCOSE; Start 01/12/17 at 13:00 Dextrose (D50w Syringe) 25 ml Q15M PRN IV DECREASED GLUCOSE Last administered on 01/13/17 04:53; Admin Dose 25 ML; Start 01/12/17 at 13:00 Dextrose (D50w Syringe) 50 ml Q15M PRN IV DECREASED GLUCOSE; Start 01/12/17 at 13:00 Glucagon (Glucagen) 1 mg Q15M PRN IM DECREASED GLUCOSE; Start 01/12/17 at 13:00 Glucose (Glutose) 15 gm Q15M PRN BUCCAL DECREASED GLUCOSE; Start 01/12/17 at 13: 00 Morphine Sulfate (morphine) 2 mg Q6 PRN IV pain Last administered on 01/21/17 22:41; Admin Dose 2 MG; Start 01/12/17 at 16:00 Morphine Sulfate (morphine) 2 mg Q3H PRN IV PAIN LEVEL 6-10 Last administered on 01/21/17 07:43; Admin Dose 2 MG; Start 01/14/17 at 04:00 Bisacodyl (Dulcolax Supp) 10 mg Q24H PRN [place] CONSTIPATION; Start 01/15/17 at 09: 30 Docusate Sodium (Colace) 100 mg QHS PRN PO CONSTIPATION Last administered on 08:17; Admin Dose 100 MG; Start 01/15/17 at 09:30 Lactulose (Enulose) 20 gm DAILY PRN PO CONSTIPATION Last administered on 01:45; Admin Dose 20 GM; Start 01/15/17 at 09:30 Senna (Senokot) 1 tab DAILY PO Last administered on 01/21/17 09:27; Admin Dose 1 TAB; Start 01/15/17 at 09:30 Sodium Biphosphate/ Sodium Phosphate (Fleet Enema) 133 ml DAILY PRN [place] CONSTIPATION; Start 01/15/17 at 09:30 Amlodipine Besylate (Norvasc) 10 mg DAILY PO Last administered on 01/20/17 08: 23; Admin Dose 10 MG; Start 01/16/17 at 09:00 Hydralazine HCl (Apresoline) 75 mg TID PO Last administered on 01/21/17 20:18 ; Admin Dose 75 MG; Start 01/16/17 at 09:00 Clonidine (Catapres) 0.1 mg Q6H PRN PO ELEVATED SYSTOLIC BP Last administered on 01/21/17 23:43; Admin Dose 0.1 MG; Start 01/16/17 at 01:30 Polyethylene Glycol (Miralax) 17 gm BID PO Last administered on 01/21/17 20:17 ; Admin Dose 17 GM; Start 01/16/17 at 21:00 Lubiprostone 24 mcg 24 mcg BID PO Last administered on 01/21/17 20:18; Admin Dose 24 MCG; Start 01/17/17 at 09:00 Ceftriaxone Sodium (Rocephin) 50 ml @ 100 mls/hr Q24H IVPB Last administered on 01/21/17 16:31; Admin Dose 100 MLS/HR; Start 01/17/17 at 17:00 Zolpidem Tartrate (Ambien) 5 mg HS PRN PO INSOMNIA Last administered on 22:40; Admin Dose 5 MG; Start 01/17/17 at 21:30 Acetaminophen/ Hydrocodone Bitart ([place] (10/325)) 1 tab Q4H PRN PO 4-6 PAIN Last administered on 01/20/17 01:10; Admin Dose 1 TAB; Start 01/19/17 at 10:00 Oxycodone HCl (Oxycontin) 10 mg Q8H PO Last administered on 01/21/17 20:19; Admin Dose 10 MG; Start 01/19/17 at 12:00 Lidocaine (Lidoderm) 1 patch DAILY TD Last administered on 01/22/17 10:06; Admin Dose 1 PATCH; Start 01/19/17 at 13:00 Ondansetron HCl (Zofran Inj) 4 mg Q6H PRN IV NAUSEA AND/OR VOMITING Last administered on 01/21/17 08:35; Admin Dose 4 MG; Start 01/21/17 at 08:30 Nitroglycerin 1 inch 1 inch Q6 TD Last administered on 01/22/17 04:16; Admin Dose 1 INCH; Start 01/22/17 at 04:00 Dextrose/Sodium Chloride (D5-1/2ns) 1,000 ml @ 50 mls/hr Q20H IV ; Start at 10:00 Naloxone HCl 0.2 mg 0.2 mg Q2M PRN IV RR 8 BREATHS/MIN OR LESS; Start 01/22/17 at 11:00 Vancomycin HCl (Vancocin) 250 ml @ 125 mls/hr Q96H IVPB ; Start 01/22/17 at 18: 00 ADALID LEO NP Jan 22, 2017 13:26
--- NOTE | 2017-01-22 13:29 | OPPN ---
Date/Time of Note Date/Time of Note DATE: 01/22/17 TIME: 13:27 Operative Report [facility] 2. L5-S1 Osteo/Diskitis Postoperative Diagnosis same Operation/Procedure Performed L5-S1 TLIF with ISF placement. Provider: CAROLYN ECHEVARRIA MD embroidery assistant: ELANA BORGES NP Anesthesia Type: general Estimated blood loss: 50 - 100 ml's Transfusion Required: no Specimens L5-S1 infected disc Grafts/Implants yes Complications: no CAROLYN ECHEVARRIA MD Jan 22, 2017 13:29
[2017-01-22] MEDS: LINEZOLID 600 MG/D5W (PMX) 300 ML IVPB SCH ×2 (13:30→20:26)
[2017-01-22] MEDS ORDERED: GLYCOPYRROLATE 0.4 MG INJ ONE (13:33)
[2017-01-22] MEDS ORDERED: NEOSTIGMINE 3 MG/3 ML SYRINGE ONE (13:33)
[2017-01-22] MEDS: morphine 2 MG INJ IV PRN ×2 (15:11→21:14)
[2017-01-22] MEDS: ONDANSETRON 4 MG INJ IV PRN (15:33)
--- NOTE | 2017-01-22 16:44 | RADRPT ---
PROCEDURE: Intraoperative imaging of the lumbar spine with fluoroscopy. CLINICAL INDICATION: Back pain. Intraoperative. TECHNIQUE: 5 images of the lumbar spine were obtained in the operating room with an image intensif ier. No radiologist was in attendance. Fluoroscopy time is 9.8 seconds. COMPARISON: No prior study is available for comparison. FINDINGS: For the purposes of this report, the last apparent true disc level is considered to be L5-S1. Based on this, the posterior surgical instrument is present overlying the L5-S1 level. Images demonstrate an intervertebral cage at L5-S1 and posterior metal fixation device at L5-S1. IMPRESSION: 1. Intraoperative imaging of the lumbar spine. RPTAT: QQ .Nima Yang MD, Date Time Electronically viewed and signed by .Nima Yang MD, on 01/22/2017 16:44 .R/
[2017-01-22] MEDS: HYDROCODONE/APAP (10/325) TAB PO PRN (16:45)
[2017-01-22] MEDS: CEFTRIAXONE 2 GM/NS 50 ML IVPB SCH (17:30)
[2017-01-22] MEDS ORDERED: VANCOMYCIN 1 GM in NS 250 ML IVPB SCH (18:00)
[2017-01-22] MEDS: ATORVASTATIN 80 MG TAB PO SCH (20:25)
[2017-01-23] VITALS (33 sets, daily range): BP systolic 91–163; BP diastolic 45–82; PULSE 67–93; RESP 12–28
[2017-01-23] MEDS: NITROGLYCERIN 2% 1 GM OINT PKT TD SCH ×4 (00:57→18:42)
[2017-01-23] MEDS: morphine 2 MG INJ IV PRN ×3 (00:58→19:28)
[2017-01-23] MEDS: ACCU-CHEK XX SCH (02:00)
[2017-01-23] MEDS: HYDROCODONE/APAP (10/325) TAB PO PRN ×2 (02:47→23:34)
[2017-01-23] MEDS: oxyCODONE (CR) 10 MG TAB [oxyCONTIN] PO SCH ×3 (04:05→20:57)
[2017-01-23 05:11] LABS: BASOPHIL # 0.1 10^3/ul (0.0-0.1); BASOPHILS % 0.7 % (0.0-2.0); EOSINOPHILS # 0.2 10^3/ul (0.0-0.5); EOSINOPHILS % 1.4 % (0.0-7.0); HEMATOCRIT 28.7 % (37.0-47.0); LYMPHOCYTES # 1.9 10^3/ul (0.8-2.9); LYMPHOCYTES % 17.2 % (15.0-51.0); MEAN CORPUSCULAR HEMOGLOBIN 29.9 pg (29.0-33.0); MEAN CORPUSCULAR HGB CONC 31.4 g/dl (32.0-37.0); MEAN CORPUSCULAR VOLUME 95.3 fl (82.0-101.0); MEAN PLATELET VOLUME 8.4 fl (7.4-10.4); MONOCYTE # 0.9 10^3/ul (0.3-0.9); MONOCYTES % 8.1 % (0.0-11.0); NEUTROPHIL # 8.1 10^3/ul (1.6-7.5); NEUTROPHILS % 72.2 % (39.0-77.0); PLATELET COUNT 289 10^3/UL (140-415); RED BLOOD COUNT 3.01 10^6/ul (4.20-5.40); RED CELL DISTRIBUTION WIDTH 15.1 % (11.5-14.5); WHITE BLOOD COUNT 11.3 10^3/ul (4.8-10.8)
[2017-01-23] MEDS: DEXTROSE 5%-0.45% NACL 1,000 ML IV SCH (05:24)
[2017-01-23] MEDS: PANTOPRAZOLE (EC) 40 MG TAB PO SCH (05:56)
[2017-01-23 06:27] LABS: CALCIUM 8.9 mg/dl (8.4-10.2); CREATININE 3.22 mg/dl (0.44-1.00); MAGNESIUM 1.9 mg/dl (1.7-2.5); PHOSPHORUS 6.1 mg/dl (2.5-4.9)
[2017-01-23] MEDS: INSULIN ASPART [NOVOLOG] 3 ML PEN SC SCH ×4 (07:35→21:00)
[2017-01-23] MEDS: REPAGLINIDE 1 MG TAB PO SCH ×3 (08:34→18:41)
[2017-01-23] MEDS: SERTRALINE 50 MG TAB PO SCH (08:34)
[2017-01-23] MEDS: SEVELAMER 800 MG TAB PO SCH ×3 (08:34→18:41)
[2017-01-23] MEDS: AMLODIPINE 10 MG TAB PO SCH (08:35)
[2017-01-23] MEDS: SENNA TAB PO SCH (08:37)
[2017-01-23] MEDS: LUBIPROSTONE 24 MCG CAP PO SCH ×2 (08:37→20:58)
[2017-01-23] MEDS: METOCLOPRAMIDE 5 MG TAB PO SCH ×2 (08:37→21:01)
[2017-01-23] MEDS: ASPIRIN 81 MG TAB PO SCH (08:37)
[2017-01-23] MEDS: LINEZOLID 600 MG/D5W (PMX) 300 ML IVPB SCH ×2 (08:38→20:58)
[2017-01-23] MEDS: POLYETHYLENE GLYCOL 17 GM PACKET PO SCH ×2 (08:38→21:01)
[2017-01-23] MEDS: LIDOCAINE 5% PATCH TD SCH (08:39)
[2017-01-23] MEDS: TOLTERODINE 2 MG TAB PO SCH ×2 (09:00→22:30)
--- NOTE | 2017-01-23 09:13 | CONS ---
Date/Time of Note Date/Time of Note DATE: 01/23/17 TIME: 09:05 Consult Date/Type/Reason Admit Date/Time Jan 12, 2017 at 10:35 Initial Consult Date 01/12/17 Type of Consultation: ID Ordering Provider: SAM CANTU DO Subjective CARDIOLOGY FOLLOW UP NOTE/ critical care note Discussed with staff and Dr ROJAS PT s/p surgery 01/22. Rhythm strip was reviewed. Patient remained in sinus rhythm with no evidence of atrial fibrillation overnight. she denies any chest pain or pressure or palpitation to me. she had severe back/ leg pain post op but improved today objective: General: no acute distress HEENT: NC/AT. pupils are equal. round. NECK: NO JVD. no stridor. CV: RRR. systolic murmur; no gallop or rubs. PULM: no wheezing or rhonchi. GI: SOFT, NT, ND, no rebound or guarding Extremity: trace B/L LE edema. no clubbing. neuro: awake and alert, Psych: calm and pleasant rectal: deferred : normal Objective Vital Signs Date Time Temp Pulse Resp B/P Pulse Ox O2 Delivery O2 Flow Rate FiO2 01/23/17 06:00 83 15 162/77 96 Room Air 01/23/17 04:00 98.2 Intake and Output 01/22/17 01/22/17 01/23/17 15:00 23:00 07:00 Intake Total 500 ml 1160 ml 250 ml Output Total 325 ml 175 ml 130 ml Balance 175 ml 985 ml 120 ml Results/Medications Result Diagram: 01/23/17 0430 01/23/17 0430 Results 24 hrs Laboratory Tests Test 01/22/17 11:34 01/22/17 18:10 01/22/17 21:04 01/23/17 04:30 Prothrombin Time 14.4 H Prothrombin Time Ratio 1.1 INR International Normalized Ratio 1.12 Activated Partial Thromboplast Time 33.1 Potassium Level 4.0 4.0 Bedside Glucose 166 158 White Blood Count 11.3 H Red Blood Count 3.01 L Hemoglobin 9.0 L Hematocrit 28.7 L Mean Corpuscular Volume 95.3 Mean Corpuscular Hemoglobin 29.9 Mean Corpuscular Hemoglobin Concent 31.4 L Red Cell Distribution Width 15.1 H Platelet Count 289 Mean Platelet Volume 8.4 Neutrophils % 72.2 Lymphocytes % 17.2 Monocytes % 8.1 Eosinophils % 1.4 Basophils % 0.7 Nucleated Red Blood Cells % 0.0 Neutrophils # 8.1 H Lymphocytes # 1.9 Monocytes # 0.9 Eosinophils # 0.2 Basophils # 0.1 Nucleated Red Blood Cells # 0.0 Sodium Level 134 L Chloride Level 101 Carbon Dioxide Level 24 Anion Gap 13 Blood Urea Nitrogen 30 #H Creatinine 3.22 H Glucose Level 101 Calcium Level 8.9 Phosphorus Level 6.1 H Magnesium Level 1.9 Test 01/23/17 08:29 Bedside Glucose 96 Medications Current Medications Aspirin (Aspirin) 162 mg DAILY PO Last administered on 01/23/17 08:37; Admin Dose 162 MG; Start 01/13/17 at 09:00 Atorvastatin Calcium (Lipitor) 80 mg QHS PO Last administered on 01/22/17 20: 25; Admin Dose 80 MG; Start 01/12/17 at 21:00 Metoclopramide HCl (Reglan) 5 mg BID PO Last administered on 01/23/17 08:37; Admin Dose 5 MG; Start 01/12/17 at 21:00 Metoprolol Tartrate (Lopressor) 100 mg BID PO Last administered on 01/22/17 20 :52; Admin Dose 100 MG; Start 01/12/17 at 21:00 Pantoprazole (Protonix Tab) 40 mg DAILY@06 PO Last administered on 01/23/17 05 :56; Admin Dose 40 MG; Start 01/13/17 at 06:00 Sertraline HCl (Zoloft) 50 mg DAILY PO Last administered on 01/23/17 08:34; Admin Dose 50 MG; Start 01/13/17 at 09:00 Tolterodine Tartrate (Detrol) 2 mg BID PO Last administered on 01/22/17 23:18 ; Admin Dose 2 MG; Start 01/12/17 at 21:00 Diagnostic Test (Pha) (Accu-Chek) 1 ea 02 XX Last administered on 01/18/17 02: 21; Admin Dose 1 EA; Start 01/13/17 at 02:00 Warfarin Sodium (Coumadin) 5 mg DAILY@17 PO Last administered on 01/18/17 18: 24; Admin Dose 5 MG; Start 01/12/17 at 17:00; Status Future Hold Miscellaneous Information 1 ea NOTE XX ; Start 01/12/17 at 13:00 Glucose (Glutose) 15 gm Q15M PRN PO DECREASED GLUCOSE; Start 01/12/17 at 13:00 Glucose (Glutose) 22.5 gm Q15M PRN PO DECREASED GLUCOSE; Start 01/12/17 at 13:00 Dextrose (D50w Syringe) 25 ml Q15M PRN IV DECREASED GLUCOSE Last administered on 01/13/17 04:53; Admin Dose 25 ML; Start 01/12/17 at 13:00 Dextrose (D50w Syringe) 50 ml Q15M PRN IV DECREASED GLUCOSE; Start 01/12/17 at 13:00 Glucagon (Glucagen) 1 mg Q15M PRN IM DECREASED GLUCOSE; Start 01/12/17 at 13:00 Glucose (Glutose) 15 gm Q15M PRN BUCCAL DECREASED GLUCOSE; Start 01/12/17 at 13: 00 Morphine Sulfate (morphine) 2 mg Q6 PRN IV pain Last administered on 01/23/17 00:58; Admin Dose 2 MG; Start 01/12/17 at 16:00 Morphine Sulfate (morphine) 2 mg Q3H PRN IV PAIN LEVEL 6-10 Last administered on 01/22/17 21:14; Admin Dose 2 MG; Start 01/14/17 at 04:00 Bisacodyl (Dulcolax Supp) 10 mg Q24H PRN [place]; Start 01/15/17 at 09: 30 Docusate Sodium (Colace) 100 mg QHS PRN PO CONSTIPATION Last administered on 08:17; Admin Dose 100 MG; Start 01/15/17 at 09:30 Lactulose (Enulose) 20 gm DAILY PRN PO CONSTIPATION Last administered on 01:45; Admin Dose 20 GM; Start 01/15/17 at 09:30 Senna (Senokot) 1 tab DAILY PO Last administered on 01/23/17 08:37; Admin Dose 1 TAB; Start 01/15/17 at 09:30 Sodium Biphosphate/ Sodium Phosphate (Fleet Enema) 133 ml DAILY PRN [place]; Start 01/15/17 at 09:30 Amlodipine Besylate (Norvasc) 10 mg DAILY PO Last administered on 01/23/17 08: 35; Admin Dose 10 MG; Start 01/16/17 at 09:00 Hydralazine HCl (Apresoline) 75 mg TID PO Last administered on 01/23/17 08:36 ; Admin Dose 75 MG; Start 01/16/17 at 09:00 Clonidine (Catapres) 0.1 mg Q6H PRN PO ELEVATED SYSTOLIC BP Last administered on 01/22/17 16:04; Admin Dose 0.1 MG; Start 01/16/17 at 01:30 Polyethylene Glycol (Miralax) 17 gm BID PO Last administered on 01/23/17 08:38 ; Admin Dose 17 GM; Start 01/16/17 at 21:00 Lubiprostone 24 mcg 24 mcg BID PO Last administered on 01/23/17 08:37; Admin Dose 24 MCG; Start 01/17/17 at 09:00 Ceftriaxone Sodium (Rocephin) 50 ml @ 100 mls/hr Q24H IVPB Last administered on 01/22/17 17:30; Admin Dose 100 MLS/HR; Start 01/17/17 at 17:00 Zolpidem Tartrate (Ambien) 5 mg HS PRN PO INSOMNIA Last administered on 22:40; Admin Dose 5 MG; Start 01/17/17 at 21:30 Acetaminophen/ Hydrocodone Bitart ([place] (10/325)) 1 tab Q4H PRN PO 4-6 PAIN Last administered on 01/23/17 02:47; Admin Dose 1 TAB; Start 01/19/17 at 10:00 Oxycodone HCl (Oxycontin) 10 mg Q8H PO Last administered on 01/23/17 04:05; Admin Dose 10 MG; Start 01/19/17 at 12:00 Lidocaine (Lidoderm) 1 patch DAILY TD Last administered on 01/23/17 08:39; Admin Dose 1 PATCH; Start 01/19/17 at 13:00 Ondansetron HCl (Zofran Inj) 4 mg Q6H PRN IV NAUSEA AND/OR VOMITING Last administered on 01/22/17 15:33; Admin Dose 4 MG; Start 01/21/17 at 08:30 Nitroglycerin 1 inch 1 inch Q6 TD Last administered on 01/23/17 05:56; Admin Dose 1 INCH; Start 01/22/17 at 04:00 Dextrose/Sodium Chloride (D5-1/2ns) 1,000 ml @ 50 mls/hr Q20H IV ; Start at 10:00 Naloxone HCl 0.2 mg 0.2 mg Q2M PRN IV RR 8 BREATHS/MIN OR LESS; Start 01/22/17 at 11:00 Linezolid (Zyvox 600mg/D5W (Pmx)) 300 ml @ 300 mls/hr Q12 IVPB Last administered on 01/23/17t 08:38; Admin Dose 300 MLS/HR; Start 01/22/17 at 13:30 Assessment/Plan Chief Complaint/Hosp Course 1. Slurred speech:improved now. F/U with neurology rec. 2. End-stage renal disease. HD as per renal 3. Hypertension. Continue current blood pressure regimen. HD. 4. History of chronic obstructive pulmonary disease. Continue medical management. 5. History of P afib. currently in NSR. coumadin in on hold in anticipation of neurosurgical intervention. 6. History of T7 paraplegia. Continue physical therapy. 7. Anemia. defer to IM 8. Dyslipidemia. Continue statin therapy. 09. Diabetes. Continue Accu-Cheks and insulin sliding scale. [facility]. [facility]. and L5-S1 Osteo/Diskitis: s/p L5-S1 TLIF with ISF placement. currently is ICU. Coumadin is on hold to be resumed once ok with neurosurgery team abx as per ID rec. More than 35 minutes of critical care time was spent in management and treatment of this patient excluding any procedure. Thank you for this referral I will continue to follow along with you. TAMERA BAILEY MD [facility] Problems: TAMERA BAILEY MD Jan 23, 2017 09:13
--- NOTE | 2017-01-23 09:28 | PN ---
Date/Time of Note Date/Time of Note DATE: 01/23/17 TIME: 09:24 Assessment/Plan VTE Prophylaxis VTE Prophylaxis Intervention: ambulation Lines/Catheters IV Catheter Type (from Nrsg): Peripheral IV Central line still needed: Yes Urinary Cath still in place: No Assessment/Plan Chief Complaint/Hosp Course 52 y/o female with history DM, ESRD, CAD, CVA, and recently started on Valtrex for Shingles. Per history, pt admitted for possible CVA/TIA and given ASA in ED. CT brain on arrival showed no acute bleed. CT abd/thoracic spine showed known previous T5-10 posterior rods/screws per pt done 10/05/2016 at [facility] for infection and had 2 weeks iv antibiotics post op. Called to evaluate regarding possible T/L spine osteo/diskitis and possible SI joint infection noted as well. Pt with worsening back pain and some recent chills but no fever. Pt requires max assistance with FWW since surgery. pmh/psx: per hpi/chart meds: see med recon ros: per hpi/chart Problems: Assessment/Plan L5-S1 diskitis/osteo s/p L5-S1 TLIF with ISF, removal infected disc. POD #1 doing well Awaiting LSO brace per PT staff SBP stable LLE radic pain improving pain well controlled Plan CT Lspine lso brace when oob x 6 weeks jackie norton dc fc okay to downgrade from NS point of view folllow up intra-op cultures pt/ot IV antibx x 4-6 weeks minimum per ID dc planning to SNF when medically stable Pain management Resume coumadin if still indicated in 7-10 days post op okay for SQ Heparin in 48 hours Subjective 24 Hr Interval Summary Free Text/Dictation S: s/p L5-S1 TLIF with ISF. POD #1 LLE radic pain improving stable overnight Exam/Review of Systems Vital Signs Vitals Vital Signs Date Time Temp Pulse Resp B/P Pulse Ox O2 Delivery O2 Flow Rate FiO2 01/23/17 06:00 83 15 162/77 96 Room Air 01/23/17 04:00 98.2 Intake and Output 01/22/17 01/22/17 01/23/17 15:00 23:00 07:00 Intake Total 500 ml 1160 ml 250 ml Output Total 325 ml 175 ml 130 ml Balance 175 ml 985 ml 120 ml Exam Constitutional: alert Psych: no complaints 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: other (MS: AAOX4 CN: PERRL M: FC x 4 , 5/5 strength , surgical site: CDI ) Results Result Diagram: 01/23/17 0430 01/23/17 0430 Results 24 hrs Laboratory Tests Test 01/22/17 11:34 01/22/17 18:10 01/22/17 21:04 01/23/17 04:30 Prothrombin Time 14.4 H Prothrombin Time Ratio 1.1 INR International Normalized Ratio 1.12 Activated Partial Thromboplast Time 33.1 Potassium Level 4.0 4.0 Bedside Glucose 166 158 White Blood Count 11.3 H Red Blood Count 3.01 L Hemoglobin 9.0 L Hematocrit 28.7 L Mean Corpuscular Volume 95.3 Mean Corpuscular Hemoglobin 29.9 Mean Corpuscular Hemoglobin Concent 31.4 L Red Cell Distribution Width 15.1 H Platelet Count 289 Mean Platelet Volume 8.4 Neutrophils % 72.2 Lymphocytes % 17.2 Monocytes % 8.1 Eosinophils % 1.4 Basophils % 0.7 Nucleated Red Blood Cells % 0.0 Neutrophils # 8.1 H Lymphocytes # 1.9 Monocytes # 0.9 Eosinophils # 0.2 Basophils # 0.1 Nucleated Red Blood Cells # 0.0 Sodium Level 134 L Chloride Level 101 Carbon Dioxide Level 24 Anion Gap 13 Blood Urea Nitrogen 30 #H Creatinine 3.22 H Glucose Level 101 Calcium Level 8.9 Phosphorus Level 6.1 H Magnesium Level 1.9 Test 01/23/17 08:29 Bedside Glucose 96 Medications Medications Current Medications Aspirin (Aspirin) 162 mg DAILY PO Last administered on 01/23/17 08:37; Admin Dose 162 MG; Start 01/13/17 at 09:00 Atorvastatin Calcium (Lipitor) 80 mg QHS PO Last administered on 01/22/17 20: 25; Admin Dose 80 MG; Start 01/12/17 at 21:00 Metoclopramide HCl (Reglan) 5 mg BID PO Last administered on 01/23/17 08:37; Admin Dose 5 MG; Start 01/12/17 at 21:00 Metoprolol Tartrate (Lopressor) 100 mg BID PO Last administered on 01/22/17 20 :52; Admin Dose 100 MG; Start 01/12/17 at 21:00 Pantoprazole (Protonix Tab) 40 mg DAILY@06 PO Last administered on 01/23/17 05 :56; Admin Dose 40 MG; Start 01/13/17 at 06:00 Sertraline HCl (Zoloft) 50 mg DAILY PO Last administered on 01/23/17 08:34; Admin Dose 50 MG; Start 01/13/17 at 09:00 Tolterodine Tartrate (Detrol) 2 mg BID PO Last administered on 01/22/17 23:18 ; Admin Dose 2 MG; Start 01/12/17 at 21:00 Diagnostic Test (Pha) (Accu-Chek) 1 ea 02 XX Last administered on 01/18/17 02: 21; Admin Dose 1 EA; Start 01/13/17 at 02:00 Warfarin Sodium (Coumadin) 5 mg DAILY@17 PO Last administered on 01/18/17 18: 24; Admin Dose 5 MG; Start 01/12/17 at 17:00; Status Future Hold Miscellaneous Information 1 ea NOTE XX ; Start 01/12/17 at 13:00 Glucose (Glutose) 15 gm Q15M PRN PO DECREASED GLUCOSE; Start 01/12/17 at 13:00 Glucose (Glutose) 22.5 gm Q15M PRN PO DECREASED GLUCOSE; Start 01/12/17 at 13:00 Dextrose (D50w Syringe) 25 ml Q15M PRN IV DECREASED GLUCOSE Last administered on 01/13/17 04:53; Admin Dose 25 ML; Start 01/12/17 at 13:00 Dextrose (D50w Syringe) 50 ml Q15M PRN IV DECREASED GLUCOSE; Start 01/12/17 at 13:00 Glucagon (Glucagen) 1 mg Q15M PRN IM DECREASED GLUCOSE; Start 01/12/17 at 13:00 Glucose (Glutose) 15 gm Q15M PRN BUCCAL DECREASED GLUCOSE; Start 01/12/17 at 13: 00 Morphine Sulfate (morphine) 2 mg Q6 PRN IV pain Last administered on 01/23/17 00:58; Admin Dose 2 MG; Start 01/12/17 at 16:00 Morphine Sulfate (morphine) 2 mg Q3H PRN IV PAIN LEVEL 6-10 Last administered on 01/22/17 21:14; Admin Dose 2 MG; Start 01/14/17 at 04:00 Bisacodyl (Dulcolax Supp) 10 mg Q24H PRN [place] CONSTIPATION; Start 01/15/17 at 09: 30 Docusate Sodium (Colace) 100 mg QHS PRN PO CONSTIPATION Last administered on 08:17; Admin Dose 100 MG; Start 01/15/17 at 09:30 Lactulose (Enulose) 20 gm DAILY PRN PO CONSTIPATION Last administered on 01:45; Admin Dose 20 GM; Start 01/15/17 at 09:30 Senna (Senokot) 1 tab DAILY PO Last administered on 01/23/17 08:37; Admin Dose 1 TAB; Start 01/15/17 at 09:30 Sodium Biphosphate/ Sodium Phosphate (Fleet Enema) 133 ml DAILY PRN [place] CONSTIPATION; Start 01/15/17 at 09:30 Amlodipine Besylate (Norvasc) 10 mg DAILY PO Last administered on 01/23/17 08: 35; Admin Dose 10 MG; Start 01/16/17 at 09:00 Hydralazine HCl (Apresoline) 75 mg TID PO Last administered on 01/23/17 08:36 ; Admin Dose 75 MG; Start 01/16/17 at 09:00 Clonidine (Catapres) 0.1 mg Q6H PRN PO ELEVATED SYSTOLIC BP Last administered on 01/22/17 16:04; Admin Dose 0.1 MG; Start 01/16/17 at 01:30 Polyethylene Glycol (Miralax) 17 gm BID PO Last administered on 01/23/17 08:38 ; Admin Dose 17 GM; Start 01/16/17 at 21:00 Lubiprostone 24 mcg 24 mcg BID PO Last administered on 01/23/17 08:37; Admin Dose 24 MCG; Start 01/17/17 at 09:00 Ceftriaxone Sodium (Rocephin) 50 ml @ 100 mls/hr Q24H IVPB Last administered on 01/22/17 17:30; Admin Dose 100 MLS/HR; Start 01/17/17 at 17:00 Zolpidem Tartrate (Ambien) 5 mg HS PRN PO INSOMNIA Last administered on 22:40; Admin Dose 5 MG; Start 01/17/17 at 21:30 Acetaminophen/ Hydrocodone Bitart ([place] (10325)) 1 tab Q4H PRN PO 4-6 PAIN Last administered on 01/23/17 02:47; Admin Dose 1 TAB; Start 01/19/17 at 10:00 Oxycodone HCl (Oxycontin) 10 mg Q8H PO Last administered on 01/23/17 04:05; Admin Dose 10 MG; Start 01/19/17 at 12:00 Lidocaine (Lidoderm) 1 patch DAILY TD Last administered on 01/23/17 08:39; Admin Dose 1 PATCH; Start 01/19/17 at 13:00 Ondansetron HCl (Zofran Inj) 4 mg Q6H PRN IV NAUSEA AND/OR VOMITING Last administered on 01/22/17 15:33; Admin Dose 4 MG; Start 01/21/17 at 08:30 Nitroglycerin 1 inch 1 inch Q6 TD Last administered on 01/23/17 05:56; Admin Dose 1 INCH; Start 01/22/17 at 04:00 Dextrose/Sodium Chloride (D5-1/2ns) 1,000 ml @ 50 mls/hr Q20H IV ; Start at 10:00 Naloxone HCl 0.2 mg 0.2 mg Q2M PRN IV RR 8 BREATHS/MIN OR LESS; Start 01/22/17 at 11:00 Linezolid (Zyvox 600mg/D5W (Pmx)) 300 ml @ 300 mls/hr Q12 IVPB Last administered on 01/23/17 08:38; Admin Dose 300 MLS/HR; Start 01/22/17 at 13:30 ELANA BORGES NP Jan 23, 2017 09:28
--- NOTE | 2017-01-23 09:35 | PN ---
Date/Time of Note Date/Time of Note DATE: 01/23/17 TIME: 09:33 Assessment/Plan VTE Prophylaxis VTE Prophylaxis Intervention: other Lines/Catheters IV Catheter Type (from Nrs): Peripheral IV Urinary Cath still in place: No Assessment/Plan Chief Complaint/Hosp Course SUBJECTIVE DATA: The patient is stable. No events overnight. s/p L5-S1 TLIF with ISF, removal infected disc. POD #1 doing well Awaiting LSO brace per PT staff last full HD was yesterday OBJECTIVE DATA: HEENT: Head is normocephalic. NECK: Supple. HEART: Regular rate. LUNGS: Showed diminished breath sounds at the base. ABDOMEN: Soft, nontender to palpation. No rebound or guarding. EXTREMITIES: Negative for clubbing, cyanosis. No edema. DERMATOLOGIC: Clean. No rashes. MUSCULOSKELETAL: No joint effusion. NEUROLOGIC: No change in exam. MEDICATIONS: Reviewed. LABORATORY AND DIAGNOSTIC DATA: Reviewed. No new labs. ASSESSMENT AND PLAN: 1. Diskitis L5-S1. s/p L5-S1 TLIF with ISF, removal infected disc. POD #1 doing well Awaiting LSO brace per PT staff 2. Chronic back pain. Continue current pain regimen. 3. End-stage renal disease. continue intermittent HD 4. Hypertension. Continue current blood pressure regimen. Continue current pain regimen. 5. Paroxysmal atrial fibrillation. Currently in sinus rhythm. Continue current medical management. Patient's Coumadin is on hold in anticipation of surgery. 6. History of transient ischemic attack. Continue medical management. Resolved. 7. Anemia. Monitor H and H levels. Continue Epogen. 8. Mineral bone disorder. Continue to monitor calcium and phosphorus levels. 9. T10 partial paraplegia. Continue to monitor. Continue physical therapy. 10. Diabetes. Continue current insulin regimen. 11. Gastrointestinal and deep venous thrombosis prophylaxis. 12. Status post shingles. Problems: Exam/Review of Systems Vital Signs Vitals Vital Signs Date Time Temp Pulse Resp B/P Pulse Ox O2 Delivery O2 Flow Rate FiO2 01/23/17 06:00 83 15 162/77 96 Room Air 01/23/17 04:00 98.2 Intake and Output 01/22/17 01/22/17 01/23/17 15:00 23:00 07:00 Intake Total 500 ml 1160 ml 250 ml Output Total 325 ml 175 ml 130 ml Balance 175 ml 985 ml 120 ml Results Result Diagram: 01/23/17 0430 01/23/17 0430 Results 24 hrs Laboratory Tests Test 01/22/17 11:34 01/22/17 18:10 01/22/17 21:04 01/23/17 04:30 Prothrombin Time 14.4 H Prothrombin Time Ratio 1.1 INR International Normalized Ratio 1.12 Activated Partial Thromboplast Time 33.1 Potassium Level 4.0 4.0 Bedside Glucose 166 158 White Blood Count 11.3 H Red Blood Count 3.01 L Hemoglobin 9.0 L Hematocrit 28.7 L Mean Corpuscular Volume 95.3 Mean Corpuscular Hemoglobin 29.9 Mean Corpuscular Hemoglobin Concent 31.4 L Red Cell Distribution Width 15.1 H Platelet Count 289 Mean Platelet Volume 8.4 Neutrophils % 72.2 Lymphocytes % 17.2 Monocytes % 8.1 Eosinophils % 1.4 Basophils % 0.7 Nucleated Red Blood Cells % 0.0 Neutrophils # 8.1 H Lymphocytes # 1.9 Monocytes # 0.9 Eosinophils # 0.2 Basophils # 0.1 Nucleated Red Blood Cells # 0.0 Sodium Level 134 L Chloride Level 101 Carbon Dioxide Level 24 Anion Gap 13 Blood Urea Nitrogen 30 #H Creatinine 3.22 H Glucose Level 101 Calcium Level 8.9 Phosphorus Level 6.1 H Magnesium Level 1.9 Test 01/23/17 08:29 Bedside Glucose 96 Medications Medications Current Medications Aspirin (Aspirin) 162 mg DAILY PO Last administered on 01/23/17 08:37; Admin Dose 162 MG; Start 01/13/17 at 09:00 Atorvastatin Calcium (Lipitor) 80 mg QHS PO Last administered on 01/22/17 20: 25; Admin Dose 80 MG; Start 01/12/17 at 21:00 Metoclopramide HCl (Reglan) 5 mg BID PO Last administered on 01/23/17 08:37; Admin Dose 5 MG; Start 01/12/17 at 21:00 Metoprolol Tartrate (Lopressor) 100 mg BID PO Last administered on 01/22/17 20 :52; Admin Dose 100 MG; Start 01/12/17 at 21:00 Pantoprazole (Protonix Tab) 40 mg DAILY@06 PO Last administered on 01/23/17 05 :56; Admin Dose 40 MG; Start 01/13/17 at 06:00 Sertraline HCl (Zoloft) 50 mg DAILY PO Last administered on 01/23/17 08:34; Admin Dose 50 MG; Start 01/13/17 at 09:00 Tolterodine Tartrate (Detrol) 2 mg BID PO Last administered on 01/22/17 23:18 ; Admin Dose 2 MG; Start 01/12/17 at 21:00 Diagnostic Test (Pha) (Accu-Chek) 1 ea 02 XX Last administered on 01/18/17 02: 21; Admin Dose 1 EA; Start 01/13/17 at 02:00 Warfarin Sodium (Coumadin) 5 mg DAILY@17 PO Last administered on 01/18/17 18: 24; Admin Dose 5 MG; Start 01/12/17 at 17:00; Status Future Hold Miscellaneous Information 1 ea NOTE XX ; Start 01/12/17 at 13:00 Glucose (Glutose) 15 gm Q15M PRN PO DECREASED GLUCOSE; Start 01/12/17 at 13:00 Glucose (Glutose) 22.5 gm Q15M PRN PO DECREASED GLUCOSE; Start 01/12/17 at 13:00 Dextrose (D50w Syringe) 25 ml Q15M PRN IV DECREASED GLUCOSE Last administered on 01/13/17 04:53; Admin Dose 25 ML; Start 01/12/17 at 13:00 Dextrose (D50w Syringe) 50 ml Q15M PRN IV DECREASED GLUCOSE; Start 01/12/17 at 13:00 Glucagon (Glucagen) 1 mg Q15M PRN IM DECREASED GLUCOSE; Start 01/12/17 at 13:00 Glucose (Glutose) 15 gm Q15M PRN BUCCAL DECREASED GLUCOSE; Start 01/12/17 at 13: 00 Morphine Sulfate (morphine) 2 mg Q6 PRN IV pain Last administered on 01/23/17 00:58; Admin Dose 2 MG; Start 01/12/17 at 16:00 Morphine Sulfate (morphine) 2 mg Q3H PRN IV PAIN LEVEL 6-10 Last administered on 01/22/17 21:14; Admin Dose 2 MG; Start 01/14/17 at 04:00 Bisacodyl (Dulcolax Supp) 10 mg Q24H PRN [place] CONSTIPATION; Start 01/15/17 at 09: 30 Docusate Sodium (Colace) 100 mg QHS PRN PO CONSTIPATION Last administered on 08:17; Admin Dose 100 MG; Start 01/15/17 at 09:30 Lactulose (Enulose) 20 gm DAILY PRN PO CONSTIPATION Last administered on 01:45; Admin Dose 20 GM; Start 01/15/17 at 09:30 Senna (Senokot) 1 tab DAILY PO Last administered on 01/23/17 08:37; Admin Dose 1 TAB; Start 01/15/17 at 09:30 Sodium Biphosphate/ Sodium Phosphate (Fleet Enema) 133 ml DAILY PRN [place] CONSTIPATION; Start 01/15/17 at 09:30 Amlodipine Besylate (Norvasc) 10 mg DAILY PO Last administered on 01/23/17 08: 35; Admin Dose 10 MG; Start 01/16/17 at 09:00 Hydralazine HCl (Apresoline) 75 mg TID PO Last administered on 01/23/17 08:36 ; Admin Dose 75 MG; Start 01/16/17 at 09:00 Clonidine (Catapres) 0.1 mg Q6H PRN PO ELEVATED SYSTOLIC BP Last administered on 01/22/17 16:04; Admin Dose 0.1 MG; Start 01/16/17 at 01:30 Polyethylene Glycol (Miralax) 17 gm BID PO Last administered on 01/23/17 08:38 ; Admin Dose 17 GM; Start 01/16/17 at 21:00 Lubiprostone 24 mcg 24 mcg BID PO Last administered on 01/23/17 08:37; Admin Dose 24 MCG; Start 01/17/17 at 09:00 Ceftriaxone Sodium (Rocephin) 50 ml @ 100 mls/hr Q24H IVPB Last administered on 01/22/17 17:30; Admin Dose 100 MLS/HR; Start 01/17/17 at 17:00 Zolpidem Tartrate (Ambien) 5 mg HS PRN PO INSOMNIA Last administered on 22:40; Admin Dose 5 MG; Start 01/17/17 at 21:30 Acetaminophen/ Hydrocodone Bitart ([place] (10/325)) 1 tab Q4H PRN PO 4-6 PAIN Last administered on 01/23/17 02:47; Admin Dose 1 TAB; Start 01/19/17 at 10:00 Oxycodone HCl (Oxycontin) 10 mg Q8H PO Last administered on 01/23/17 04:05; Admin Dose 10 MG; Start 01/19/17 at 12:00 Lidocaine (Lidoderm) 1 patch DAILY TD Last administered on 01/23/17 08:39; Admin Dose 1 PATCH; Start 01/19/17 at 13:00 Ondansetron HCl (Zofran Inj) 4 mg Q6H PRN IV NAUSEA AND/OR VOMITING Last administered on 01/22/17 15:33; Admin Dose 4 MG; Start 01/21/17 at 08:30 Nitroglycerin 1 inch 1 inch Q6 TD Last administered on 01/23/17 05:56; Admin Dose 1 INCH; Start 01/22/17 at 04:00 Dextrose/Sodium Chloride (D5-1/2ns) 1,000 ml @ 50 mls/hr Q20H IV ; Start at 10:00 Naloxone HCl 0.2 mg 0.2 mg Q2M PRN IV RR 8 BREATHS/MIN OR LESS; Start 01/22/17 at 11:00 Linezolid (Zyvox 600mg/D5W (Pmx)) 300 ml @ 300 mls/hr Q12 IVPB Last administered on 01/23/17 08:38; Admin Dose 300 MLS/HR; Start 01/22/17 at 13:30 CHANDA ROJAS DO Jan 23, 2017 09:35
[2017-01-23] MEDS: METOPROLOL 100 MG TAB PO SCH ×3 (10:00→21:20)
--- NOTE | 2017-01-23 12:13 | CONS ---
Date/Time of Note Date/Time of Note DATE: 01/23/17 TIME: 12:01 Assessment/Plan Assessment/Plan Chief Complaint/Hosp Course ID PROGRESS NOTE TOTAL ABX DAY # CURRENT ABX=> Zyvox #2 + Ceftriaxone 24H INTERVAL SUMMARY * A/A/O -> tells me she is doing well, no complaints, VSS, calm, cooperative * POD #1 => S/P DATE: 01/22/17 Operation/Procedure Performed: L5-S1 TLIF with ISF placement. * Pre/Postoperative Diagnosis: 1. Mech LBP with Radi. 2. L5-S1 Osteo/Diskitis * 01/12 BCx (-), Urine (+)VRE, * 01/22 Intraop wound cx: Billy: 01/22/17 Rcvd: 01/22/17 Source: LUMB SPINE Sp Descrip: Microbiology WOUND CULTURE Preliminary No growth after 1 day EXAM GENERAL: 51 yo F, A/A/O, VSS, NAD HEENT: Unremarkable, no oral thrush NECK: supple, full ROM CHEST: Rise symmetrical, without dyspnea on room air PermCath ABDOMEN: Soft, NT EXTREMITIES: WArm, no edema SKIN: No diaphoresis, no rash, (+)tattoos ID ASSESSMENT: 51 yo F w/ PMHx DM, HTN, prior CVA, paraplegia w/hx of T-7 laminectomy admit [facility] ICU with: 1. SIRS w/Leukocytosis 2. Spinal discitis with osteomyelitis and questionable abscess versus phlegmon * POD #1 => S/P DATE: 01/22/17 Operation/Procedure Performed: L5-S1 TLIF with ISF placement. * Pre/Postoperative Diagnosis: 1. Mech LBP with Radi. 2. L5-S1 Osteo/Diskitis * 01/22 Intraop wound cx: Billy: 01/22/17 Rcvd: 01/22/17 Source: LUMB SPINE Sp Descrip: Microbiology WOUND CULTURE Preliminary No growth after 1 day 3. UTI -> 01/20 (+) VRE 4. S/p transient ischemic attack. 5. End-stage renal disease, hemodialysis dependent. 6. Diabetes. 7. Anemia. INVASIVES: PermCath ABX ALLERGY: None to ABX TOTAL ABX DAY # CURRENT ABX=> Zyvox #2 + Ceftriaxone ID PLAN 1. Awaiting final results intraop cultures 2. Continue current ABX over the weekend, will make final recommendations next week . . Problems: Consultation Date/Type/Reason Admit Date/Time Jan 12, 2017 at 10:35 Initial Consult Date 01/12/17 Type of Consultation: ID Referring Provider: SAM CANTU DO Exam/Review of Systems Vital Signs Vitals Vital Signs Date Time Temp Pulse Resp B/P Pulse Ox O2 Delivery O2 Flow Rate FiO2 01/23/17 11:00 16 118/63 95 Room Air 01/23/17 10:00 73 01/23/17 08:00 98.3 Intake and Output 01/22/17 01/22/17 01/23/17 15:00 23:00 07:00 Intake Total 500 ml 1160 ml 250 ml Output Total 325 ml 175 ml 130 ml Balance 175 ml 985 ml 120 ml Results Result Diagram: 01/23/17 0430 01/23/17 0430 Results 24 hrs Laboratory Tests Test 01/22/17 18:10 01/22/17 21:04 01/23/17 04:30 01/23/17 08:29 Bedside Glucose 166 158 96 White Blood Count 11.3 H Red Blood Count 3.01 L Hemoglobin 9.0 L Hematocrit 28.7 L Mean Corpuscular Volume 95.3 Mean Corpuscular Hemoglobin 29.9 Mean Corpuscular Hemoglobin Concent 31.4 L Red Cell Distribution Width 15.1 H Platelet Count 289 Mean Platelet Volume 8.4 Neutrophils % 72.2 Lymphocytes % 17.2 Monocytes % 8.1 Eosinophils % 1.4 Basophils % 0.7 Nucleated Red Blood Cells % 0.0 Neutrophils # 8.1 H Lymphocytes # 1.9 Monocytes # 0.9 Eosinophils # 0.2 Basophils # 0.1 Nucleated Red Blood Cells # 0.0 Sodium Level 134 L Potassium Level 4.0 Chloride Level 101 Carbon Dioxide Level 24 Anion Gap 13 Blood Urea Nitrogen 30 #H Creatinine 3.22 H Glucose Level 101 Calcium Level 8.9 Phosphorus Level 6.1 H Magnesium Level 1.9 Test 01/23/17 11:28 Bedside Glucose 102 Medications Medications Current Medications Aspirin (Aspirin) 162 mg DAILY PO Last administered on 01/23/17t 08:37; Admin Dose 162 MG; Start 01/13/17 at 09:00 Atorvastatin Calcium (Lipitor) 80 mg QHS PO Last administered on 01/22/17 20: 25; Admin Dose 80 MG; Start 01/12/17 at 21:00 Metoclopramide HCl (Reglan) 5 mg BID PO Last administered on 01/23/17 08:37; Admin Dose 5 MG; Start 01/12/17 at 21:00 Metoprolol Tartrate (Lopressor) 100 mg BID PO Last administered on 01/23/17 10 :00; Admin Dose 100 MG; Start 01/12/17 at 21:00 Pantoprazole (Protonix Tab) 40 mg DAILY@06 PO Last administered on 01/23/17 05 :56; Admin Dose 40 MG; Start 01/13/17 at 06:00 Sertraline HCl (Zoloft) 50 mg DAILY PO Last administered on 01/23/17 08:34; Admin Dose 50 MG; Start 01/13/17 at 09:00 Tolterodine Tartrate (Detrol) 2 mg BID PO Last administered on 01/23/17 09:00 ; Admin Dose 2 MG; Start 01/12/17 at 21:00 Diagnostic Test (Pha) (Accu-Chek) 1 ea 02 XX Last administered on 01/18/17 02: 21; Admin Dose 1 EA; Start 01/13/17 at 02:00 Warfarin Sodium (Coumadin) 5 mg DAILY@17 PO Last administered on 01/18/17 18: 24; Admin Dose 5 MG; Start 01/12/17 at 17:00; Status Future Hold Miscellaneous Information 1 ea NOTE XX ; Start 01/12/17 at 13:00 Glucose (Glutose) 15 gm Q15M PRN PO DECREASED GLUCOSE; Start 01/12/17 at 13:00 Glucose (Glutose) 22.5 gm Q15M PRN PO DECREASED GLUCOSE; Start 01/12/17 at 13:00 Dextrose (D50w Syringe) 25 ml Q15M PRN IV DECREASED GLUCOSE Last administered on 01/13/17 04:53; Admin Dose 25 ML; Start 01/12/17 at 13:00 Dextrose (D50w Syringe) 50 ml Q15M PRN IV DECREASED GLUCOSE; Start 01/12/17 at 13:00 Glucagon (Glucagen) 1 mg Q15M PRN IM DECREASED GLUCOSE; Start 01/12/17 at 13:00 Glucose (Glutose) 15 gm Q15M PRN BUCCAL DECREASED GLUCOSE; Start 01/12/17 at 13: 00 Morphine Sulfate (morphine) 2 mg Q6 PRN IV pain Last administered on 01/23/17 00:58; Admin Dose 2 MG; Start 01/12/17 at 16:00 Morphine Sulfate (morphine) 2 mg Q3H PRN IV PAIN LEVEL 6-10 Last administered on 01/23/17 11:20; Admin Dose 2 MG; Start 01/14/17 at 04:00 Bisacodyl (Dulcolax Supp) 10 mg Q24H PRN [place] CONSTIPATION; Start 01/15/17 at 09: 30 Docusate Sodium (Colace) 100 mg QHS PRN PO CONSTIPATION Last administered on 08:17; Admin Dose 100 MG; Start 01/15/17 at 09:30 Lactulose (Enulose) 20 gm DAILY PRN PO CONSTIPATION Last administered on 01:45; Admin Dose 20 GM; Start 01/15/17 at 09:30 Senna (Senokot) 1 tab DAILY PO Last administered on 01/23/17 08:37; Admin Dose 1 TAB; Start 01/15/17 at 09:30 Sodium Biphosphate/ Sodium Phosphate (Fleet Enema) 133 ml DAILY PRN [place] CONSTIPATION; Start 01/15/17 at 09:30 Amlodipine Besylate (Norvasc) 10 mg DAILY PO Last administered on 01/23/17 08: 35; Admin Dose 10 MG; Start 01/16/17 at 09:00 Hydralazine HCl (Apresoline) 75 mg TID PO Last administered on 01/23/17 08:36 ; Admin Dose 75 MG; Start 01/16/17 at 09:00 Clonidine (Catapres) 0.1 mg Q6H PRN PO ELEVATED SYSTOLIC BP Last administered on 01/22/17 16:04; Admin Dose 0.1 MG; Start 01/16/17 at 01:30 Polyethylene Glycol (Miralax) 17 gm BID PO Last administered on 01/23/17 08:38 ; Admin Dose 17 GM; Start 01/16/17 at 21:00 Lubiprostone 24 mcg 24 mcg BID PO Last administered on 01/23/17 08:37; Admin Dose 24 MCG; Start 01/17/17 at 09:00 Ceftriaxone Sodium (Rocephin) 50 ml @ 100 mls/hr Q24H IVPB Last administered on 01/22/17 17:30; Admin Dose 100 MLS/HR; Start 01/17/17 at 17:00 Zolpidem Tartrate (Ambien) 5 mg HS PRN PO INSOMNIA Last administered on 22:40; Admin Dose 5 MG; Start 01/17/17 at 21:30 Acetaminophen/ Hydrocodone Bitart ([place] (10/325)) 1 tab Q4H PRN PO 4-6 PAIN Last administered on 01/23/17 02:47; Admin Dose 1 TAB; Start 01/19/17 at 10:00 Oxycodone HCl (Oxycontin) 10 mg Q8H PO Last administered on 01/23/17 04:05; Admin Dose 10 MG; Start 01/19/17 at 12:00 Lidocaine (Lidoderm) 1 patch DAILY TD Last administered on 01/23/17 08:39; Admin Dose 1 PATCH; Start 01/19/17 at 13:00 Ondansetron HCl (Zofran Inj) 4 mg Q6H PRN IV NAUSEA AND/OR VOMITING Last administered on 01/22/17 15:33; Admin Dose 4 MG; Start 01/21/17 at 08:30 Nitroglycerin 1 inch 1 inch Q6 TD Last administered on 01/23/17 05:56; Admin Dose 1 INCH; Start 01/22/17 at 04:00 Dextrose/Sodium Chloride (D5-1/2ns) 1,000 ml @ 50 mls/hr Q20H IV ; Start at 10:00 Naloxone HCl 0.2 mg 0.2 mg Q2M PRN IV RR 8 BREATHS/MIN OR LESS; Start 01/22/17 at 11:00 Linezolid (Zyvox 600mg/D5W (Pmx)) 300 ml @ 300 mls/hr Q12 IVPB Last administered on 01/23/17 08:38; Admin Dose 300 MLS/HR; Start 01/22/17 at 13:30 ILIANA SALDANA NP Jan 23, 2017 12:12
--- NOTE | 2017-01-23 13:45 | RADRPT ---
PROCEDURE: CT Lumbar Spine without intravenous contrast CLINICAL INDICATION: Postoperative evaluation. COMPARISON: Radiograph 01/22/2017. MRI 01/18/2017. TECHNIQUE: Axial noncontrast CT images of the lumbar spine with coronal and sagittal reformats. DOSE ESTIMATE: CTDI vol = 27 mGy. DLP = 717 mGy-cm. One or more of the following dose reduction te chniques were used: automated exposure control, adjustment of the mA and/or kV according to patient size, or use of iterative reconstruction. FINDINGS: Segmentation: For this report the last well-formed disc is labeled L5-S1. Alignment: Normal. Vertebrae: Interval interspinous fusion of L5-S1 with interbody fusion of the L5-S1 disc space. Left S1 laminectomy. No vertebral body height loss.. Discs: L5-S1 interbody spacer. Degenerative change: T12-L1: No disc herniation. No spinal canal or foraminal narrowing. L1-L2: Mild anterior endplate spurring. No disc herniation. No spinal canal or foraminal narrowing. L2-L3: Mild anterior endplate spurring. 2 mm disc bulge without significant central canal or foramin al narrowing. L3-L4: Mild anterior endplate spurring. 2 mm disc bulge, mild facet arthropathy, ligamentum flavum l axity, and dorsal epidural fat results in mild central canal narrowing and moderate bilateral forami nal narrowing. L4-L5: Mild anterior endplate spurring. 3 mm disc bulge, mild facet arthropathy, ligamentum flavum l axity, and dorsal epidural fat results in moderate central canal narrowing and moderate bilateral fo raminal narrowing. L5-S1: The spinal canal is decompressed by the left laminectomy. There is moderate bilateral foramin al narrowing, likely related to disc height loss. Para-vertebral soft tissues: Expected changes in the posterior paraspinal soft tissues related to re cent surgery. Visualized abdomen and pelvis: Arterial calcifications. Cholelithiasis. Additional comment: None. IMPRESSION: 1. Expected changes related to L5-S1 fusion. No hardware complication identified 2. Mild degenerative changes at L3-L4 an L4-L5. RPTAT: [facility] Physician Lukasz Date Time Electronically viewed and signed by Physician Lukasz on 01/23/2017 13:45 LG/
[2017-01-23] MEDS: CEFTRIAXONE 2 GM/NS 50 ML IVPB SCH (18:41)
[2017-01-23] MEDS: ATORVASTATIN 80 MG TAB PO SCH (20:59)
[2017-01-24] VITALS (12 sets, daily range): BP systolic 112–144; BP diastolic 55–73; PULSE 71–78; RESP 16–21
[2017-01-24] MEDS: morphine 2 MG INJ IV PRN ×3 (00:24→23:05)
[2017-01-24] MEDS: NITROGLYCERIN 2% 1 GM OINT PKT TD SCH ×4 (00:34→17:51)
[2017-01-24] MEDS: ACCU-CHEK XX SCH (02:00)
[2017-01-24] MEDS: oxyCODONE (CR) 10 MG TAB [oxyCONTIN] PO SCH ×3 (04:40→20:59)
[2017-01-24] MEDS: PANTOPRAZOLE (EC) 40 MG TAB PO SCH (06:28)
[2017-01-24] MEDS: SERTRALINE 50 MG TAB PO SCH (09:28)
[2017-01-24] MEDS: ASPIRIN 81 MG TAB PO SCH (09:29)
[2017-01-24] MEDS: LUBIPROSTONE 24 MCG CAP PO SCH ×2 (09:29→23:00)
[2017-01-24] MEDS: METOCLOPRAMIDE 5 MG TAB PO SCH ×2 (09:29→21:15)
[2017-01-24] MEDS: REPAGLINIDE 1 MG TAB PO SCH ×3 (09:30→17:50)
[2017-01-24] MEDS: SEVELAMER 800 MG TAB PO SCH ×3 (09:30→17:50)
[2017-01-24] MEDS: TOLTERODINE 2 MG TAB PO SCH ×2 (09:30→23:00)
[2017-01-24] MEDS: LINEZOLID 600 MG/D5W (PMX) 300 ML IVPB SCH ×2 (09:31→21:15)
[2017-01-24] MEDS: SENNA TAB PO SCH (09:32)
[2017-01-24] MEDS: METOPROLOL 100 MG TAB PO SCH ×2 (09:32→21:19)
[2017-01-24] MEDS: AMLODIPINE 10 MG TAB PO SCH (09:32)
[2017-01-24] MEDS: POLYETHYLENE GLYCOL 17 GM PACKET PO SCH ×2 (09:33→21:15)
[2017-01-24] MEDS: INSULIN ASPART [NOVOLOG] 3 ML PEN SC SCH ×4 (09:34→20:03)
[2017-01-24] MEDS: LIDOCAINE 5% PATCH TD SCH (09:40)
--- NOTE | 2017-01-24 09:49 | PN ---
Date/Time of Note Date/Time of Note DATE: 01/24/17 TIME: 09:48 Assessment/Plan VTE Prophylaxis VTE Prophylaxis Intervention: other Lines/Catheters IV Catheter Type (from Nrs): perma cath Central line still needed: Yes Urinary Cath still in place: No Assessment/Plan Chief Complaint/Hosp Course SUBJECTIVE DATA: The patient is stable. No events overnight. s/p L5-S1 TLIF with ISF, removal infected disc. POD #2 doing well Awaiting LSO brace per PT staff last full HD was 2 days ago OBJECTIVE DATA: HEENT: Head is normocephalic. NECK: Supple. HEART: Regular rate. LUNGS: Showed diminished breath sounds at the base. ABDOMEN: Soft, nontender to palpation. No rebound or guarding. EXTREMITIES: Negative for clubbing, cyanosis. No edema. DERMATOLOGIC: Clean. No rashes. MUSCULOSKELETAL: No joint effusion. NEUROLOGIC: No change in exam. MEDICATIONS: Reviewed. LABORATORY AND DIAGNOSTIC DATA: Reviewed. No new labs. ASSESSMENT AND PLAN: 1. Diskitis L5-S1. s/p L5-S1 TLIF with ISF, removal infected disc. POD #2 doing well Awaiting LSO brace per PT staff 2. Chronic back pain. Continue current pain regimen. 3. End-stage renal disease. continue intermittent HD 4. Hypertension. Continue current blood pressure regimen. Continue current pain regimen. 5. Paroxysmal atrial fibrillation. Currently in sinus rhythm. Continue current medical management. Patient's Coumadin is on hold in anticipation of surgery. 6. History of transient ischemic attack. Continue medical management. Resolved. 7. Anemia. Monitor H and H levels. Continue Epogen. 8. Mineral bone disorder. Continue to monitor calcium and phosphorus levels. 9. T10 partial paraplegia. Continue to monitor. Continue physical therapy. 10. Diabetes. Continue current insulin regimen. 11. Gastrointestinal and deep venous thrombosis prophylaxis. 12. Status post shingles. Problems: Exam/Review of Systems Vital Signs Vitals Vital Signs Date Time Temp Pulse Resp B/P Pulse Ox O2 Delivery O2 Flow Rate FiO2 01/24/17 08:21 78 01/24/17 07:51 98.5 18 124/61 91 01/23/17 22:00 Room Air Intake and Output 01/23/17 01/23/17 01/24/17 15:00 23:00 07:00 Intake Total 1150 ml 900 ml 120 ml Output Total 3455 ml 0 ml Balance -2305 ml 900 ml 120 ml Results Result Diagram: 01/23/17 0430 01/23/17 0430 Results 24 hrs Laboratory Tests Test 01/23/17 11:28 01/23/17 18:35 01/23/17 21:07 01/24/17 09:26 Bedside Glucose 102 177 92 153 Medications Medications Current Medications Aspirin (Aspirin) 162 mg DAILY PO Last administered on 01/24/17 09:29; Admin Dose 162 MG; Start 01/13/17 at 09:00 Atorvastatin Calcium (Lipitor) 80 mg QHS PO Last administered on 01/23/17 20: 59; Admin Dose 80 MG; Start 01/12/17 at 21:00 Metoclopramide HCl (Reglan) 5 mg BID PO Last administered on 01/24/17 09:29; Admin Dose 5 MG; Start 01/12/17 at 21:00 Metoprolol Tartrate (Lopressor) 100 mg BID PO Last administered on 01/24/17 09 :32; Admin Dose 100 MG; Start 01/12/17 at 21:00 Pantoprazole (Protonix Tab) 40 mg DAILY@06 PO Last administered on 01/24/17 06 :28; Admin Dose 40 MG; Start 01/13/17 at 06:00 Sertraline HCl (Zoloft) 50 mg DAILY PO Last administered on 01/24/17 09:28; Admin Dose 50 MG; Start 01/13/17 at 09:00 Tolterodine Tartrate (Detrol) 2 mg BID PO Last administered on 01/24/17 09:30 ; Admin Dose 2 MG; Start 01/12/17 at 21:00 Diagnostic Test (Pha) (Accu-Chek) 1 ea 02 XX Last administered on 01/18/17 02: 21; Admin Dose 1 EA; Start 01/13/17 at 02:00 Warfarin Sodium (Coumadin) 5 mg DAILY@17 PO Last administered on 01/18/17 18: 24; Admin Dose 5 MG; Start 01/12/17 at 17:00; Status Future Hold Miscellaneous Information 1 ea NOTE XX ; Start 01/12/17 at 13:00 Glucose (Glutose) 15 gm Q15M PRN PO DECREASED GLUCOSE; Start 01/12/17 at 13:00 Glucose (Glutose) 22.5 gm Q15M PRN PO DECREASED GLUCOSE; Start 01/12/17 at 13:00 Dextrose (D50w Syringe) 25 ml Q15M PRN IV DECREASED GLUCOSE Last administered on 01/13/17 04:53; Admin Dose 25 ML; Start 01/12/17 at 13:00 Dextrose (D50w Syringe) 50 ml Q15M PRN IV DECREASED GLUCOSE; Start 01/12/17 at 13:00 Glucagon (Glucagen) 1 mg Q15M PRN IM DECREASED GLUCOSE; Start 01/12/17 at 13:00 Glucose (Glutose) 15 gm Q15M PRN BUCCAL DECREASED GLUCOSE; Start 01/12/17 at 13: 00 Morphine Sulfate (morphine) 2 mg Q6 PRN IV pain Last administered on 01/24/17 09:33; Admin Dose 2 MG; Start 01/12/17 at 16:00 Morphine Sulfate (morphine) 2 mg Q3H PRN IV PAIN LEVEL 6-10 Last administered on 01/23/17 19:28; Admin Dose 2 MG; Start 01/14/17 at 04:00 Bisacodyl (Dulcolax Supp) 10 mg Q24H PRN [place] CONSTIPATION; Start 01/15/17 at 09: 30 Docusate Sodium (Colace) 100 mg QHS PRN PO CONSTIPATION Last administered on 08:17; Admin Dose 100 MG; Start 01/15/17 at 09:30 Lactulose (Enulose) 20 gm DAILY PRN PO CONSTIPATION Last administered on 01:45; Admin Dose 20 GM; Start 01/15/17 at 09:30 Senna (Senokot) 1 tab DAILY PO Last administered on 01/24/17 09:32; Admin Dose 1 TAB; Start 01/15/17 at 09:30 Sodium Biphosphate/ Sodium Phosphate (Fleet Enema) 133 ml DAILY PRN [place] CONSTIPATION; Start 01/15/17 at 09:30 Amlodipine Besylate (Norvasc) 10 mg DAILY PO Last administered on 01/24/17 09: 32; Admin Dose 10 MG; Start 01/16/17 at 09:00 Hydralazine HCl (Apresoline) 75 mg TID PO Last administered on 01/24/17 09:39 ; Admin Dose 75 MG; Start 01/16/17 at 09:00 Clonidine (Catapres) 0.1 mg Q6H PRN PO ELEVATED SYSTOLIC BP Last administered on 01/22/17 16:04; Admin Dose 0.1 MG; Start 01/16/17 at 01:30 Polyethylene Glycol (Miralax) 17 gm BID PO Last administered on 01/24/17 09:33 ; Admin Dose 17 GM; Start 01/16/17 at 21:00 Lubiprostone 24 mcg 24 mcg BID PO Last administered on 01/24/17 09:29; Admin Dose 24 MCG; Start 01/17/17 at 09:00 Ceftriaxone Sodium (Rocephin) 50 ml @ 100 mls/hr Q24H IVPB Last administered on 01/23/17 18:41; Admin Dose 100 MLS/HR; Start 01/17/17 at 17:00 Zolpidem Tartrate (Ambien) 5 mg HS PRN PO INSOMNIA Last administered on 22:40; Admin Dose 5 MG; Start 01/17/17 at 21:30 Acetaminophen/ Hydrocodone Bitart ([place] (10/325)) 1 tab Q4H PRN PO 4-6 PAIN Last administered on 01/23/17 23:34; Admin Dose 1 TAB; Start 01/19/17 at 10:00 Oxycodone HCl (Oxycontin) 10 mg Q8H PO Last administered on 01/24/17 04:40; Admin Dose 10 MG; Start 01/19/17 at 12:00 Lidocaine (Lidoderm) 1 patch DAILY TD Last administered on 01/24/17 09:40; Admin Dose 1 PATCH; Start 01/19/17 at 13:00 Ondansetron HCl (Zofran Inj) 4 mg Q6H PRN IV NAUSEA AND/OR VOMITING Last administered on 01/22/17 15:33; Admin Dose 4 MG; Start 01/21/17 at 08:30 Nitroglycerin (Nitroglycerin 2% Oint) 1 inch Q6 TD Last administered on 06:28; Admin Dose 1 INCH; Start 01/22/17 at 04:00 Naloxone HCl 0.2 mg 0.2 mg Q2M PRN IV RR 8 BREATHS/MIN OR LESS; Start 01/22/17 at 11:00 Linezolid (Zyvox 600mg/D5W (Pmx)) 300 ml @ 300 mls/hr Q12 IVPB Last administered on 01/24/17 09:31; Admin Dose 300 MLS/HR; Start 01/22/17 at 13:30 CHANDA ROJAS DO Jan 24, 2017 09:49
--- NOTE | 2017-01-24 13:31 | CONS ---
Date/Time of Note Date/Time of Note DATE: 01/24/17 TIME: 13:30 Consult Date/Type/Reason Admit Date/Time Jan 12, 2017 at 10:35 Initial Consult Date 01/12/17 Type of Consultation: CARDIOLOGY Ordering Provider: SAM CANTU DO Subjective CARDIOLOGY FOLLOW UP NOTE Discussed with staff and rhythm was reviewed. pt remains in NSR. D/W PT s/p surgery 01/22. she denies any chest pain or pressure or palpitation to me. she denies any back pain to me now objective: General: no acute distress HEENT: NC/AT. pupils are equal. round. NECK: NO JVD. no stridor. CV: RRR. systolic murmur; no gallop or rubs. PULM: no wheezing or rhonchi. GI: SOFT, NT, ND, no rebound or guarding Extremity: trace B/L LE edema. no clubbing. neuro: awake and alert, Psych: calm and pleasant rectal: deferred : normal Objective Vital Signs Date Time Temp Pulse Resp B/P Pulse Ox O2 Delivery O2 Flow Rate FiO2 01/24/17 12:43 71 01/24/17 11:22 98.9 17 112/55 93 01/23/17 22:00 Room Air Intake and Output 01/23/17 01/23/17 01/24/17 15:00 23:00 07:00 Intake Total 1150 ml 900 ml 120 ml Output Total 3455 ml 0 ml Balance -2305 ml 900 ml 120 ml Results/Medications Result Diagram: 01/23/17 0430 01/23/17 0430 Results 24 hrs Laboratory Tests Test 01/23/17 18:35 01/23/17 21:07 01/24/17 09:26 01/24/17 11:27 Bedside Glucose 177 92 153 119 Medications Current Medications Aspirin (Aspirin) 162 mg DAILY PO Last administered on 01/24/17 09:29; Admin Dose 162 MG; Start 01/13/17 at 09:00 Atorvastatin Calcium (Lipitor) 80 mg QHS PO Last administered on 01/23/17 20: 59; Admin Dose 80 MG; Start 01/12/17 at 21:00 Metoclopramide HCl (Reglan) 5 mg BID PO Last administered on 01/24/17 09:29; Admin Dose 5 MG; Start 01/12/17 at 21:00 Metoprolol Tartrate (Lopressor) 100 mg BID PO Last administered on 01/24/17 09 :32; Admin Dose 100 MG; Start 01/12/17 at 21:00 Pantoprazole (Protonix Tab) 40 mg DAILY@06 PO Last administered on 01/24/17 06 :28; Admin Dose 40 MG; Start 01/13/17 at 06:00 Sertraline HCl (Zoloft) 50 mg DAILY PO Last administered on 01/24/17 09:28; Admin Dose 50 MG; Start 01/13/17 at 09:00 Tolterodine Tartrate (Detrol) 2 mg BID PO Last administered on 01/24/17 09:30 ; Admin Dose 2 MG; Start 01/12/17 at 21:00 Diagnostic Test (Pha) (Accu-Chek) 1 ea 02 XX Last administered on 01/18/17 02: 21; Admin Dose 1 EA; Start 01/13/17 at 02:00 Warfarin Sodium (Coumadin) 5 mg DAILY@17 PO Last administered on 01/18/17 18: 24; Admin Dose 5 MG; Start 01/12/17 at 17:00; Status Future Hold Miscellaneous Information 1 ea NOTE XX ; Start 01/12/17 at 13:00 Glucose (Glutose) 15 gm Q15M PRN PO DECREASED GLUCOSE; Start 01/12/17 at 13:00 Glucose (Glutose) 22.5 gm Q15M PRN PO DECREASED GLUCOSE; Start 01/12/17 at 13:00 Dextrose (D50w Syringe) 25 ml Q15M PRN IV DECREASED GLUCOSE Last administered on 01/13/17 04:53; Admin Dose 25 ML; Start 01/12/17 at 13:00 Dextrose (D50w Syringe) 50 ml Q15M PRN IV DECREASED GLUCOSE; Start 01/12/17 at 13:00 Glucagon (Glucagen) 1 mg Q15M PRN IM DECREASED GLUCOSE; Start 01/12/17 at 13:00 Glucose (Glutose) 15 gm Q15M PRN BUCCAL DECREASED GLUCOSE; Start 01/12/17 at 13: 00 Morphine Sulfate (morphine) 2 mg Q6 PRN IV pain Last administered on 01/24/17 09:33; Admin Dose 2 MG; Start 01/12/17 at 16:00 Morphine Sulfate (morphine) 2 mg Q3H PRN IV PAIN LEVEL 6-10 Last administered on 01/23/17 19:28; Admin Dose 2 MG; Start 01/14/17 at 04:00 Bisacodyl (Dulcolax Supp) 10 mg Q24H PRN [place] CONSTIPATION; Start 01/15/17 at 09: 30 Docusate Sodium (Colace) 100 mg QHS PRN PO CONSTIPATION Last administered on 08:17; Admin Dose 100 MG; Start 01/15/17 at 09:30 Lactulose (Enulose) 20 gm DAILY PRN PO CONSTIPATION Last administered on 01:45; Admin Dose 20 GM; Start 01/15/17 at 09:30 Senna (Senokot) 1 tab DAILY PO Last administered on 01/24/17 09:32; Admin Dose 1 TAB; Start 01/15/17 at 09:30 Sodium Biphosphate/ Sodium Phosphate (Fleet Enema) 133 ml DAILY PRN [place] CONSTIPATION; Start 01/15/17 at 09:30 Amlodipine Besylate (Norvasc) 10 mg DAILY PO Last administered on 01/24/17 09: 32; Admin Dose 10 MG; Start 01/16/17 at 09:00 Hydralazine HCl (Apresoline) 75 mg TID PO Last administered on 01/24/17 09:39 ; Admin Dose 75 MG; Start 01/16/17 at 09:00 Clonidine (Catapres) 0.1 mg Q6H PRN PO ELEVATED SYSTOLIC BP Last administered on 01/22/17 16:04; Admin Dose 0.1 MG; Start 01/16/17 at 01:30 Polyethylene Glycol (Miralax) 17 gm BID PO Last administered on 01/24/17 09:33 ; Admin Dose 17 GM; Start 01/16/17 at 21:00 Lubiprostone 24 mcg 24 mcg BID PO Last administered on 01/24/17 09:29; Admin Dose 24 MCG; Start 01/17/17 at 09:00 Ceftriaxone Sodium (Rocephin) 50 ml @ 100 mls/hr Q24H IVPB Last administered on 01/23/17 18:41; Admin Dose 100 MLS/HR; Start 01/17/17 at 17:00 Zolpidem Tartrate (Ambien) 5 mg HS PRN PO INSOMNIA Last administered on 22:40; Admin Dose 5 MG; Start 01/17/17 at 21:30 Acetaminophen/ Hydrocodone Bitart ([place] (10/325)) 1 tab Q4H PRN PO 4-6 PAIN Last administered on 01/23/17 23:34; Admin Dose 1 TAB; Start 01/19/17 at 10:00 Oxycodone HCl (Oxycontin) 10 mg Q8H PO Last administered on 01/24/17 11:29; Admin Dose 10 MG; Start 01/19/17 at 12:00 Lidocaine (Lidoderm) 1 patch DAILY TD Last administered on 01/24/17 09:40; Admin Dose 1 PATCH; Start 01/19/17 at 13:00 Ondansetron HCl (Zofran Inj) 4 mg Q6H PRN IV NAUSEA AND/OR VOMITING Last administered on 01/22/17 15:33; Admin Dose 4 MG; Start 01/21/17 at 08:30 Nitroglycerin (Nitroglycerin 2% Oint) 1 inch Q6 TD Last administered on 06:28; Admin Dose 1 INCH; Start 01/22/17 at 04:00 Naloxone HCl 0.2 mg 0.2 mg Q2M PRN IV RR 8 BREATHS/MIN OR LESS; Start 01/22/17 at 11:00 Linezolid (Zyvox 600mg/D5W (Pmx)) 300 ml @ 300 mls/hr Q12 IVPB Last administered on 01/24/17 09:31; Admin Dose 300 MLS/HR; Start 01/22/17 at 13:30 Assessment/Plan Chief Complaint/Hosp Course 1. Slurred speech:improved now. F/U with neurology rec. on ASA NOW. 2. End-stage renal disease. HD as per renal 3. Hypertension. Continue current blood pressure regimen. HD. 4. History of chronic obstructive pulmonary disease. Continue medical management. 5. History of P afib.per old records. currently in NSR. coumadin in on hold for neurosurgical intervention. consider resuming coumadin when ok with neurosurgery 6. History of T7 paraplegia. Continue physical therapy. 7. Anemia. defer to IM 8. Dyslipidemia. Continue statin therapy. 09. Diabetes. Continue Accu-Cheks and insulin sliding scale. [facility]-S[facility] Osteo/Diskitis: s/p L5-S1 TLIF with ISF placement. currently is ICU. Coumadin is on hold to be resumed once ok with neurosurgery team abx as per ID rec. Thank you for this referral I will continue to follow along with you. TAMERA BAILEY MD [facility] Problems: TAMERA BAILEY MD Jan 24, 2017 13:31
[2017-01-24] MEDS: CEFTRIAXONE 2 GM/NS 50 ML IVPB SCH (17:49)
--- NOTE | 2017-01-24 19:08 | CONS ---
Date/Time of Note Date/Time of Note DATE: 01/24/17 TIME: 19:04 Assessment/Plan Assessment/Plan Chief Complaint/Hosp Course ID PROGRESS NOTE TOTAL ABX DAY # CURRENT ABX=> Zyvox #3 + Ceftriaxone 24H INTERVAL SUMMARY * No fevers, VSS, NAD, resting, no c/o * POD #2 => S/P DATE: 01/22/17 Operation/Procedure Performed: L5-S1 TLIF with ISF placement. * Pre/Postoperative Diagnosis: 1. Mech LBP with Radi. 2. L5-S1 Osteo/Diskitis * 01/12 BCx (-), Urine (+)VRE, * 01/22 Intraop wound cx: Billy: 01/22/17 Rcvd: 01/22/17 Source: [facility] Sp Descrip: Microbiology EXAM GENERAL: 51 yo F, A/A/O, VSS, NAD HEENT: Unremarkable, no oral thrush NECK: supple, full ROM CHEST: Rise symmetrical, without dyspnea on room air PermCath ABDOMEN: Soft, NT EXTREMITIES: WArm, no edema SKIN: No diaphoresis, no rash, (+)tattoos ID ASSESSMENT: 51 yo F w/ PMHx DM, HTN, prior CVA, paraplegia w/hx of T-7 laminectomy admit [facility] ICU with: 1. SIRS w/Leukocytosis 2. Spinal discitis with osteomyelitis and questionable abscess versus phlegmon * POD #2 => S/P 01/22/17 L5-S1 TLIF with ISF, removal infected disc. POD #2 * 01/22 Intraop wound cx: Billy: 01/22/17 Rcvd: 01/22/17 Source: [facility] Sp Descrip: Microbiology WOUND CULTURE Preliminary NO GROWTH AFTER 2 DAYS ANAEROBIC CULTURE Preliminary NO GROWTH AFTER 2 DAYS 3. UTI -> 01/20 (+) VRE 4. S/p transient ischemic attack. 5. End-stage renal disease, hemodialysis dependent. 6. Diabetes. 7. Anemia. INVASIVES: PermCath ABX ALLERGY: None to ABX TOTAL ABX DAY # CURRENT ABX=> Zyvox #3 + Ceftriaxone ID PLAN 1. Awaiting final results intraop cultures 2. Continue current ABX over the weekend, will make final recommendations next week . . Problems: Consultation Date/Type/Reason Admit Date/Time Jan 12, 2017 at 10:35 Initial Consult Date 01/12/17 Type of Consultation: ID Referring Provider: SAM CANTU DO Exam/Review of Systems Vital Signs Vitals Vital Signs Date Time Temp Pulse Resp B/P Pulse Ox O2 Delivery O2 Flow Rate FiO2 01/24/17 16:44 71 01/24/17 15:28 98.1 17 114/73 96 01/23/17 22:00 Room Air Intake and Output 01/23/17 01/23/17 01/24/17 15:00 23:00 07:00 Intake Total 1150 ml 900 ml 120 ml Output Total 3455 ml 0 ml Balance -2305 ml 900 ml 120 ml Results Result Diagram: 01/23/17 0430 01/23/17 0430 Results 24 hrs Laboratory Tests Test 01/23/17 21:07 01/24/17 09:26 01/24/17 11:27 01/24/17 17:03 Bedside Glucose 92 153 119 68 L Test 01/24/17 17:31 01/24/17 17:59 01/24/17 18:52 Bedside Glucose 69 L 78 111 Medications Medications Current Medications Aspirin (Aspirin) 162 mg DAILY PO Last administered on 01/24/17 09:29; Admin Dose 162 MG; Start 01/13/17 at 09:00 Atorvastatin Calcium (Lipitor) 80 mg QHS PO Last administered on 01/23/17 20: 59; Admin Dose 80 MG; Start 01/12/17 at 21:00 Metoclopramide HCl (Reglan) 5 mg BID PO Last administered on 01/24/17 09:29; Admin Dose 5 MG; Start 01/12/17 at 21:00 Metoprolol Tartrate (Lopressor) 100 mg BID PO Last administered on 01/24/17 09 :32; Admin Dose 100 MG; Start 01/12/17 at 21:00 Pantoprazole (Protonix Tab) 40 mg DAILY@06 PO Last administered on 01/24/17 06 :28; Admin Dose 40 MG; Start 01/13/17 at 06:00 Sertraline HCl (Zoloft) 50 mg DAILY PO Last administered on 01/24/17 09:28; Admin Dose 50 MG; Start 01/13/17 at 09:00 Tolterodine Tartrate (Detrol) 2 mg BID PO Last administered on 01/24/17 09:30 ; Admin Dose 2 MG; Start 01/12/17 at 21:00 Diagnostic Test (Pha) (Accu-Chek) 1 ea 02 XX Last administered on 01/18/17 02: 21; Admin Dose 1 EA; Start 01/13/17 at 02:00 Warfarin Sodium (Coumadin) 5 mg DAILY@17 PO Last administered on 01/18/17 18: 24; Admin Dose 5 MG; Start 01/12/17 at 17:00; Status Future Hold Miscellaneous Information 1 ea NOTE XX ; Start 01/12/17 at 13:00 Glucose (Glutose) 15 gm Q15M PRN PO DECREASED GLUCOSE; Start 01/12/17 at 13:00 Glucose (Glutose) 22.5 gm Q15M PRN PO DECREASED GLUCOSE; Start 01/12/17 at 13:00 Dextrose (D50w Syringe) 25 ml Q15M PRN IV DECREASED GLUCOSE Last administered on 01/13/17 04:53; Admin Dose 25 ML; Start 01/12/17 at 13:00 Dextrose (D50w Syringe) 50 ml Q15M PRN IV DECREASED GLUCOSE; Start 01/12/17 at 13:00 Glucagon (Glucagen) 1 mg Q15M PRN IM DECREASED GLUCOSE; Start 01/12/17 at 13:00 Glucose (Glutose) 15 gm Q15M PRN BUCCAL DECREASED GLUCOSE; Start 01/12/17 at 13: 00 Morphine Sulfate (morphine) 2 mg Q6 PRN IV pain Last administered on 01/24/17 09:33; Admin Dose 2 MG; Start 01/12/17 at 16:00 Morphine Sulfate (morphine) 2 mg Q3H PRN IV PAIN LEVEL 6-10 Last administered on 01/23/17 19:28; Admin Dose 2 MG; Start 01/14/17 at 04:00 Bisacodyl (Dulcolax Supp) 10 mg Q24H PRN MD CONSTIPATION; Start 01/15/17 at 09: 30 Docusate Sodium (Colace) 100 mg QHS PRN PO CONSTIPATION Last administered on 08:17; Admin Dose 100 MG; Start 01/15/17 at 09:30 Lactulose (Enulose) 20 gm DAILY PRN PO CONSTIPATION Last administered on 01:45; Admin Dose 20 GM; Start 01/15/17 at 09:30 Senna (Senokot) 1 tab DAILY PO Last administered on 01/24/17 09:32; Admin Dose 1 TAB; Start 01/15/17 at 09:30 Sodium Biphosphate/ Sodium Phosphate (Fleet Enema) 133 ml DAILY PRN MD CONSTIPATION; Start 01/15/17 at 09:30 Amlodipine Besylate (Norvasc) 10 mg DAILY PO Last administered on 01/24/17 09: 32; Admin Dose 10 MG; Start 01/16/17 at 09:00 Hydralazine HCl (Apresoline) 75 mg TID PO Last administered on 01/24/17 09:39 ; Admin Dose 75 MG; Start 01/16/17 at 09:00 Clonidine (Catapres) 0.1 mg Q6H PRN PO ELEVATED SYSTOLIC BP Last administered on 01/22/17 16:04; Admin Dose 0.1 MG; Start 01/16/17 at 01:30 Polyethylene Glycol (Miralax) 17 gm BID PO Last administered on 01/24/17 09:33 ; Admin Dose 17 GM; Start 01/16/17 at 21:00 Lubiprostone 24 mcg 24 mcg BID PO Last administered on 01/24/17 09:29; Admin Dose 24 MCG; Start 01/17/17 at 09:00 Ceftriaxone Sodium (Rocephin) 50 ml @ 100 mls/hr Q24H IVPB Last administered on 01/24/17 17:49; Admin Dose 100 MLS/HR; Start 01/17/17 at 17:00 Zolpidem Tartrate (Ambien) 5 mg HS PRN PO INSOMNIA Last administered on 22:40; Admin Dose 5 MG; Start 01/17/17 at 21:30 Acetaminophen/ Hydrocodone Bitart ([place] (10/325)) 1 tab Q4H PRN PO 4-6 PAIN Last administered on 01/23/17 23:34; Admin Dose 1 TAB; Start 01/19/17 at 10:00 Oxycodone HCl (Oxycontin) 10 mg Q8H PO Last administered on 01/24/17 11:29; Admin Dose 10 MG; Start 01/19/17 at 12:00 Lidocaine (Lidoderm) 1 patch DAILY TD Last administered on 01/24/17 09:40; Admin Dose 1 PATCH; Start 01/19/17 at 13:00 Ondansetron HCl (Zofran Inj) 4 mg Q6H PRN IV NAUSEA AND/OR VOMITING Last administered on 01/22/17 15:33; Admin Dose 4 MG; Start 01/21/17 at 08:30 Nitroglycerin (Nitroglycerin 2% Oint) 1 inch Q6 TD Last administered on 06:28; Admin Dose 1 INCH; Start 01/22/17 at 04:00 Naloxone HCl 0.2 mg 0.2 mg Q2M PRN IV RR 8 BREATHS/MIN OR LESS; Start 01/22/17 at 11:00 Linezolid (Zyvox 600mg/D5W (Pmx)) 300 ml @ 300 mls/hr Q12 IVPB Last administered on 01/24/17 09:31; Admin Dose 300 MLS/HR; Start 01/22/17 at 13:30 ILIANA SALDANA NP Jan 24, 2017 19:08
[2017-01-24] MEDS: ATORVASTATIN 80 MG TAB PO SCH (21:15)
[2017-01-25] VITALS (12 sets, daily range): BP systolic 110–143; BP diastolic 56–78; PULSE 68–79; RESP 18–20
[2017-01-25] MEDS: NITROGLYCERIN 2% 1 GM OINT PKT TD SCH ×4 (00:10→18:03)
[2017-01-25] MEDS: ACCU-CHEK XX SCH (01:39)
[2017-01-25] MEDS: morphine 2 MG INJ IV PRN ×3 (03:33→19:27)
[2017-01-25] MEDS: oxyCODONE (CR) 10 MG TAB [oxyCONTIN] PO SCH ×3 (05:43→21:09)
[2017-01-25] MEDS: PANTOPRAZOLE (EC) 40 MG TAB PO SCH (05:43)
[2017-01-25] MEDS: INSULIN ASPART [NOVOLOG] 3 ML PEN SC SCH ×4 (07:55→21:00)
[2017-01-25] MEDS: POLYETHYLENE GLYCOL 17 GM PACKET PO SCH ×2 (09:00→21:00)
[2017-01-25] MEDS: LUBIPROSTONE 24 MCG CAP PO SCH ×2 (09:00→21:00)
[2017-01-25] MEDS: REPAGLINIDE 1 MG TAB PO SCH ×3 (09:41→18:01)
[2017-01-25] MEDS: SEVELAMER 800 MG TAB PO SCH ×3 (09:41→18:01)
[2017-01-25] MEDS: TOLTERODINE 2 MG TAB PO SCH ×2 (09:41→21:08)
[2017-01-25] MEDS: SERTRALINE 50 MG TAB PO SCH (09:42)
[2017-01-25] MEDS: ASPIRIN 81 MG TAB PO SCH (09:42)
[2017-01-25] MEDS: AMLODIPINE 10 MG TAB PO SCH (09:42)
[2017-01-25] MEDS: SENNA TAB PO SCH (09:43)
[2017-01-25] MEDS: METOCLOPRAMIDE 5 MG TAB PO SCH ×2 (09:43→21:08)
[2017-01-25] MEDS: METOPROLOL 100 MG TAB PO SCH ×2 (09:43→21:07)
[2017-01-25] MEDS: LIDOCAINE 5% PATCH TD SCH (09:44)
[2017-01-25] MEDS: LINEZOLID 600 MG/D5W (PMX) 300 ML IVPB SCH ×2 (09:44→21:06)
[2017-01-25] MEDS: HEPARIN 5,000 UNIT/0.5 ML VIAL SC SCH ×2 (10:00→21:11)
--- NOTE | 2017-01-25 14:11 | PN ---
DATE: 01/25/2017 SUBJECTIVE DATA: The patient is currently stable. She is postop day number 2 from a surgical removal of infected hardware. No other acute events noted. OBJECTIVE DATA: VITAL SIGNS: Blood pressure 143/72, temperature 98.5, pulse 79, respirations 20. HEENT: Head is normocephalic. NECK: Supple. HEART: Regular rate. LUNGS: Diminished breath sounds at the base. ABDOMEN: Soft, nontender to palpation. No rebound or guarding. EXTREMITIES: Negative for clubbing, cyanosis. No edema. DERMATOLOGIC: No rashes. MUSCULOSKELETAL: No joint effusion. NEUROLOGIC: Unchanged exam. MEDICATIONS: Reviewed. LABORATORY AND DIAGNOSTIC DATA: Been reviewed. No new labs. ASSESSMENT AND PLAN: 1. Diskitis L5-S1, status post L5-S1 TLIF with ISF and removal of infected disc. Postoperative day number 2. The patient is currently stable. Awaiting LSO brace per PT. Continue to monitor. Follow up with Neurosurgery. 2. Chronic back pain, secondary to infected hardware. Continue current pain regimen. 3. End-stage renal disease. Plan for hemodialysis tomorrow. 4. Hypertension. Continue current blood pressure regimen. 5. Proximal atrial fibrillation, currently in sinus rhythm. Continue medical management. Resume Coumadin per Cardiology. 6. History of transient ischemic attack. Continue medical management. 7. Anemia. Monitor H and H levels. We will give Epogen as needed. 8. Mineral bone disorder. Monitor calcium and phosphorus levels. 9. Diabetes. Continue current insulin regimen. 10. Status post shingles. 11. Gastrointestinal and deep venous thrombosis prophylaxis. Dictated By: Buck Seals DO /saul/monica /Document#: [id number]
[2017-01-25] MEDS: CEFTRIAXONE 2 GM/NS 50 ML IVPB SCH (18:01)
--- NOTE | 2017-01-25 18:46 | CONS ---
Date/Time of Note Date/Time of Note DATE: 01/25/17 TIME: 18:45 Consult Date/Type/Reason Admit Date/Time Jan 12, 2017 at 10:35 Initial Consult Date 01/12/17 Type of Consultation: ID Ordering Provider: SAM CANTU DO Subjective CARDIOLOGY FOLLOW UP NOTE Discussed with staff and rhythm was reviewed. pt remains in NSR. PT s/p surgery 01/22. she denies any chest pain or pressure or palpitation to me. she denies any back pain to me now and states she has been able to walk objective: General: no acute distress HEENT: NC/AT. pupils are equal. round. NECK: NO JVD. no stridor. CV: RRR. systolic murmur; no gallop or rubs. PULM: no wheezing or rhonchi. GI: SOFT, NT, ND, no rebound or guarding Extremity: trace B/L LE edema. no clubbing. neuro: awake and alert, Psych: calm and pleasant rectal: deferred Objective Vital Signs Date Time Temp Pulse Resp B/P Pulse Ox O2 Delivery O2 Flow Rate FiO2 01/25/17 16:26 68 01/25/17 15:28 97.9 20 123/65 100 01/23/17 22:00 Room Air Intake and Output 01/24/17 01/24/17 01/25/17 15:00 23:00 07:00 Intake Total 500 ml 250 ml Balance 500 ml 250 ml Results/Medications Result Diagram: 01/23/17 0430 01/23/17 0430 Results 24 hrs Laboratory Tests Test 01/24/17 18:52 01/24/17 20:02 01/25/17 08:34 01/25/17 12:19 Bedside Glucose 111 97 100 124 Test 01/25/17 18:06 Bedside Glucose 71 Medications Current Medications Aspirin (Aspirin) 162 mg DAILY PO Last administered on 01/25/17 09:42; Admin Dose 162 MG; Start 01/13/17 at 09:00 Atorvastatin Calcium (Lipitor) 80 mg QHS PO Last administered on 01/24/17 21: 15; Admin Dose 80 MG; Start 01/12/17 at 21:00 Metoclopramide HCl (Reglan) 5 mg BID PO Last administered on 01/25/17 09:43; Admin Dose 5 MG; Start 01/12/17 at 21:00 Metoprolol Tartrate (Lopressor) 100 mg BID PO Last administered on 01/25/17 09 :43; Admin Dose 100 MG; Start 01/12/17 at 21:00 Pantoprazole (Protonix Tab) 40 mg DAILY@06 PO Last administered on 01/25/17 05 :43; Admin Dose 40 MG; Start 01/13/17 at 06:00 Sertraline HCl (Zoloft) 50 mg DAILY PO Last administered on 01/25/17 09:42; Admin Dose 50 MG; Start 01/13/17 at 09:00 Tolterodine Tartrate (Detrol) 2 mg BID PO Last administered on 01/25/17 09:41 ; Admin Dose 2 MG; Start 01/12/17 at 21:00 Diagnostic Test (Pha) (Accu-Chek) 1 ea 02 XX Last administered on 01/18/17 02: 21; Admin Dose 1 EA; Start 01/13/17 at 02:00 Warfarin Sodium (Coumadin) 5 mg DAILY@17 PO Last administered on 01/18/17 18: 24; Admin Dose 5 MG; Start 01/12/17 at 17:00; Status Future Hold Miscellaneous Information 1 ea NOTE XX ; Start 01/12/17 at 13:00 Glucose (Glutose) 15 gm Q15M PRN PO DECREASED GLUCOSE; Start 01/12/17 at 13:00 Glucose (Glutose) 22.5 gm Q15M PRN PO DECREASED GLUCOSE; Start 01/12/17 at 13:00 Dextrose (D50w Syringe) 25 ml Q15M PRN IV DECREASED GLUCOSE Last administered on 01/13/17 04:53; Admin Dose 25 ML; Start 01/12/17 at 13:00 Dextrose (D50w Syringe) 50 ml Q15M PRN IV DECREASED GLUCOSE; Start 01/12/17 at 13:00 Glucagon (Glucagen) 1 mg Q15M PRN IM DECREASED GLUCOSE; Start 01/12/17 at 13:00 Glucose (Glutose) 15 gm Q15M PRN BUCCAL DECREASED GLUCOSE; Start 01/12/17 at 13: 00 Morphine Sulfate (morphine) 2 mg Q3H PRN IV PAIN LEVEL 6-10 Last administered on 01/25/17 10:20; Admin Dose 2 MG; Start 01/14/17 at 04:00 Bisacodyl (Dulcolax Supp) 10 mg Q24H PRN MD CONSTIPATION; Start 01/15/17 at 09: 30 Docusate Sodium (Colace) 100 mg QHS PRN PO CONSTIPATION Last administered on 08:17; Admin Dose 100 MG; Start 01/15/17 at 09:30 Lactulose (Enulose) 20 gm DAILY PRN PO CONSTIPATION Last administered on 01:45; Admin Dose 20 GM; Start 01/15/17 at 09:30 Senna (Senokot) 1 tab DAILY PO Last administered on 01/25/17 09:43; Admin Dose 1 TAB; Start 01/15/17 at 09:30 Sodium Biphosphate/ Sodium Phosphate (Fleet Enema) 133 ml DAILY PRN MD CONSTIPATION; Start 01/15/17 at 09:30 Amlodipine Besylate (Norvasc) 10 mg DAILY PO Last administered on 01/25/17 09: 42; Admin Dose 10 MG; Start 01/16/17 at 09:00 Hydralazine HCl (Apresoline) 75 mg TID PO Last administered on 01/25/17 13:12 ; Admin Dose 75 MG; Start 01/16/17 at 09:00 Clonidine (Catapres) 0.1 mg Q6H PRN PO ELEVATED SYSTOLIC BP Last administered on 01/22/17 16:04; Admin Dose 0.1 MG; Start 01/16/17 at 01:30 Polyethylene Glycol (Miralax) 17 gm BID PO Last administered on 01/24/17 21:15 ; Admin Dose 17 GM; Start 01/16/17 at 21:00 Lubiprostone 24 mcg 24 mcg BID PO Last administered on 01/25/17 09:00; Admin Dose 24 MCG; Start 01/17/17 at 09:00 Ceftriaxone Sodium (Rocephin) 50 ml @ 100 mls/hr Q24H IVPB Last administered on 01/25/17 18:01; Admin Dose 100 MLS/HR; Start 01/17/17 at 17:00 Zolpidem Tartrate (Ambien) 5 mg HS PRN PO INSOMNIA Last administered on 22:40; Admin Dose 5 MG; Start 01/17/17 at 21:30 Acetaminophen/ Hydrocodone Bitart ([place] (10/325)) 1 tab Q4H PRN PO 4-6 PAIN Last administered on 01/23/17 23:34; Admin Dose 1 TAB; Start 01/19/17 at 10:00 Oxycodone HCl (Oxycontin) 10 mg Q8H PO Last administered on 01/25/17 13:11; Admin Dose 10 MG; Start 01/19/17 at 12:00 Lidocaine (Lidoderm) 1 patch DAILY TD Last administered on 01/25/17 09:44; Admin Dose 1 PATCH; Start 01/19/17 at 13:00 Ondansetron HCl (Zofran Inj) 4 mg Q6H PRN IV NAUSEA AND/OR VOMITING Last administered on 01/22/17 15:33; Admin Dose 4 MG; Start 01/21/17 at 08:30 Nitroglycerin (Nitroglycerin 2% Oint) 1 inch Q6 TD Last administered on 18:03; Admin Dose 1 INCH; Start 01/22/17 at 04:00 Naloxone HCl 0.2 mg 0.2 mg Q2M PRN IV RR 8 BREATHS/MIN OR LESS; Start 01/22/17 at 11:00 Linezolid (Zyvox 600mg/D5W (Pmx)) 300 ml @ 300 mls/hr Q12 IVPB Last administered on 01/25/17 09:44; Admin Dose 300 MLS/HR; Start 01/22/17 at 13:30 Heparin Sodium (Porcine) (Heparin (5000 Units/0.5 ml)) 5,000 unit BID SC Last administered on 01/25/17 10:00; Admin Dose 5,000 UNIT; Start 01/25/17 at 09:00 Assessment/Plan Chief Complaint/Hosp Course 1. Slurred speech:improved now. F/U with neurology rec. on ASA NOW. 2. End-stage renal disease. HD as per renal 3. Hypertension. Continue current blood pressure regimen. HD. 4. History of chronic obstructive pulmonary disease. Continue medical management. 5. History of P afib.per old records. currently in NSR. coumadin in on hold for neurosurgical intervention. consider resuming coumadin when ok with neurosurgery 6. History of T7 paraplegia. Continue physical therapy. 7. Anemia. defer to IM 8. Dyslipidemia. Continue statin therapy. 09. Diabetes. Continue Accu-Cheks and insulin sliding scale. [facility] Osteo/Diskitis: s/p L5-S1 TLIF with ISF placement. currently is ICU. Coumadin is on hold to be resumed once ok with neurosurgery team abx as per ID rec. Thank you for this referral I will continue to follow along with you. TAMERA BAILEY MD [facility] Problems: TAMERA BAILEY MD Jan 25, 2017 18:46
--- NOTE | 2017-01-25 19:53 | PN ---
DATE: 01/25/2017 SUBJECTIVE DATA: No events overnight. The patient is sleeping, looks comfortable. No fevers. ANTIMICROBIALS: Zyvox, ceftriaxone. INDWELLING: The patient has right chest PermCath. PHYSICAL EXAMINATION: GENERAL: Well-developed, obese, middle-aged woman who is in no distress. HEENT: Head atraumatic, normocephalic. Sclerae anicteric. Buccal mucosa dry. NECK: Supple. CHEST: Chest rise symmetrical. Breath sounds diminished at the bases. HEART: S1, S2. ABDOMEN: Soft, bowel sounds present. ASSESSMENT: 1. Spinal discitis with osteomyelitis, status post surgical intervention on 01/22/2017. 2. End-stage renal disease, on hemodialysis. 3. Hypertension. 4. Vancomycin resistant enterococcus (VRE) urinary tract infection (UTI). 5. Anemia. 6. Diabetes. PLAN: 1. The patient remains stable. 2. Continue present care. 3. Antibiotics. 4. Follow neurosurgical recommendations. Dictated By: Nini Velázquez NP /saul/siobhan /Document#: [id number]
[2017-01-25] MEDS: ATORVASTATIN 80 MG TAB PO SCH (21:07)
[2017-01-26] VITALS (11 sets, daily range): BP systolic 115–174; BP diastolic 60–83; PULSE 63–84; RESP 16–20
[2017-01-26] MEDS: ACCU-CHEK XX SCH (02:00)
[2017-01-26] MEDS: oxyCODONE (CR) 10 MG TAB [oxyCONTIN] PO SCH ×3 (03:29→21:20)
[2017-01-26] MEDS: morphine 2 MG INJ IV PRN (05:28)
[2017-01-26] MEDS: NITROGLYCERIN 2% 1 GM OINT PKT TD SCH ×4 (05:29→17:23)
[2017-01-26] MEDS: PANTOPRAZOLE (EC) 40 MG TAB PO SCH (05:30)
[2017-01-26] MEDS: INSULIN ASPART [NOVOLOG] 3 ML PEN SC SCH ×4 (07:55→21:00)
[2017-01-26 08:24] LABS: BASOPHIL # 0.1 10^3/ul (0.0-0.1); BASOPHILS % 0.7 % (0.0-2.0); EOSINOPHILS # 0.5 10^3/ul (0.0-0.5); EOSINOPHILS % 5.5 % (0.0-7.0); HEMATOCRIT 28.9 % (37.0-47.0); HEMOGLOBIN 9.1 g/dl (12.0-16.0); LYMPHOCYTES # 1.8 10^3/ul (0.8-2.9); LYMPHOCYTES % 20.4 % (15.0-51.0); MEAN CORPUSCULAR HEMOGLOBIN 30.1 pg (29.0-33.0); MEAN CORPUSCULAR HGB CONC 31.5 g/dl (32.0-37.0); MEAN CORPUSCULAR VOLUME 95.7 fl (82.0-101.0); MEAN PLATELET VOLUME 8.4 fl (7.4-10.4); MONOCYTE # 0.5 10^3/ul (0.3-0.9); MONOCYTES % 6.1 % (0.0-11.0); NEUTROPHIL # 5.9 10^3/ul (1.6-7.5); NEUTROPHILS % 66.7 % (39.0-77.0); PLATELET COUNT 328 10^3/UL (140-415); RED BLOOD COUNT 3.02 10^6/ul (4.20-5.40); RED CELL DISTRIBUTION WIDTH 14.7 % (11.5-14.5); WHITE BLOOD COUNT 8.8 10^3/ul (4.8-10.8)
[2017-01-26 08:54] LABS: CALCIUM 8.7 mg/dl (8.4-10.2); CREATININE 3.38 mg/dl (0.44-1.00); PHOSPHORUS 5.5 mg/dl (2.5-4.9); POTASSIUM 4.4 mmol/L (3.5-5.1)
[2017-01-26] MEDS: AMLODIPINE 10 MG TAB PO SCH (09:00)
[2017-01-26] MEDS: METOPROLOL 100 MG TAB PO SCH ×2 (09:00→21:21)
[2017-01-26] MEDS: ASPIRIN 81 MG TAB PO SCH (09:08)
[2017-01-26] MEDS: SENNA TAB PO SCH (09:08)
[2017-01-26] MEDS: SEVELAMER 800 MG TAB PO SCH ×3 (09:09→17:21)
[2017-01-26] MEDS: SERTRALINE 50 MG TAB PO SCH (09:09)
[2017-01-26] MEDS: REPAGLINIDE 1 MG TAB PO SCH ×2 (09:09→11:20)
[2017-01-26] MEDS: LUBIPROSTONE 24 MCG CAP PO SCH ×2 (09:09→21:00)
[2017-01-26] MEDS: METOCLOPRAMIDE 5 MG TAB PO SCH ×2 (09:09→21:19)
[2017-01-26] MEDS: TOLTERODINE 2 MG TAB PO SCH ×2 (09:09→21:19)
[2017-01-26] MEDS: HEPARIN 5,000 UNIT/0.5 ML VIAL SC SCH ×2 (09:12→21:22)
[2017-01-26] MEDS: LINEZOLID 600 MG/D5W (PMX) 300 ML IVPB SCH ×2 (09:14→21:23)
[2017-01-26] MEDS: POLYETHYLENE GLYCOL 17 GM PACKET PO SCH ×2 (09:14→21:00)
[2017-01-26] MEDS: LIDOCAINE 5% PATCH TD SCH (09:14)
--- NOTE | 2017-01-26 10:39 | PN ---
DATE: 01/26/2017 SUBJECTIVE DATA: The patient is stable. Noted to have an episode of hypoglycemia this morning, asymptomatic. No other events noted. OBJECTIVE DATA: VITAL SIGNS: Blood pressure is 126/60, respirations 20, pulse 70, temperature 97.8. HEENT: Head is normocephalic. NECK: Supple. HEART: Regular rate. LUNGS: Show diminished breath sounds at the base. ABDOMEN: Soft, nontender to palpation. No rebound or guarding. EXTREMITIES: Negative for clubbing, cyanosis. No edema. DERMATOLOGIC: Clean. No rashes. MUSCULOSKELETAL: No joint effusion. NEUROLOGIC: No change in exam. MEDICATIONS: Reviewed. LABORATORY AND DIAGNOSTIC DATA: Shows a white count 8.8, hemoglobin 9.1, hematocrit 28.9, and platelet count is 328. ASSESSMENT AND PLAN: 1. Diskitis L5-S1. Patient is status post L5-S1 transforaminal lumbar interbody fusion and removal of infected disk. The plan at this point is to continue current medical management, follow up with Neurosurgery for recommendations. The patient is pending lumbosacral orthosis brace. 2. Chronic back pain, secondary to infected hardware status post removal. Continue current pain regimen. 3. End-stage renal disease. Plan for hemodialysis today. 4. Hypertension. Continue current blood pressure regimen. 5. Paroxysmal atrial fibrillation. Currently sinus rhythm. Continue medical management. Will resume Coumadin 7-10 days following surgery per neurosurgery recommendations. 6. Transient ischemic attack. Continue medical management. 7. Anemia. Monitor H and H levels. Give Epogen as needed. 8. Mineral bone disorder. Continue to monitor calcium and phosphorus levels. 9. Diabetes. Continue current insulin regimen. 10. Gastrointestinal and deep venous thrombosis prophylaxes. Dictated By: Buck Seals DO /saul/aurelia /Document#: [id number]
[2017-01-26] MEDS: DEXTROSE 50% 50 ML SYRINGE IV PRN (12:31)
--- NOTE | 2017-01-26 15:23 | CONS ---
Date/Time of Note Date/Time of Note DATE: 01/26/17 TIME: 15:22 Assessment/Plan Assessment/Plan Chief Complaint/Hosp Course SUBJECTIVE DATA: No events overnight. The patient is alert, sitting up in a chair, looks comfortable. No fevers. ANTIMICROBIALS: Zyvox, ceftriaxone. INDWELLING: The patient has right chest PermCath. PHYSICAL EXAMINATION: GENERAL: Well-developed, obese, middle-aged woman who is in no distress. HEENT: Head atraumatic, normocephalic. Sclerae anicteric. Buccal mucosa dry. NECK: Supple. CHEST: Chest rise symmetrical. Breath sounds diminished at the bases. HEART: S1, S2. ABDOMEN: Soft, bowel sounds present. ASSESSMENT: 1. Spinal discitis with osteomyelitis, status post surgical intervention on 01/22/2017. 2. End-stage renal disease, on hemodialysis. 3. Hypertension. 4. Vancomycin resistant enterococcus (VRE) urinary tract infection (UTI). 5. Anemia. 6. Diabetes. PLAN: 1. The patient remains stable. 2. Continue present care. 3. Antibiotics for total of six weeks. 4. Follow neurosurgical recommendations. Problems: Consultation Date/Type/Reason Admit Date/Time Jan 12, 2017 at 10:35 Initial Consult Date 01/12/17 Type of Consultation: ID Referring Provider: SAM CANTU DO Exam/Review of Systems Vital Signs Vitals Vital Signs Date Time Temp Pulse Resp B/P Pulse Ox O2 Delivery O2 Flow Rate FiO2 01/26/17 12:00 72 01/26/17 11:09 97.9 20 129/63 96 01/26/17 02:36 2.0 28 01/23/17 22:00 Room Air Intake and Output 01/25/17 01/25/17 01/26/17 15:00 23:00 07:00 Intake Total 1070 ml 850 ml Output Total 1000 ml Balance 70 ml 850 ml Results Result Diagram: 01/26/17 0749 01/26/17 0749 Results 24 hrs Laboratory Tests Test 01/25/17 18:06 01/25/17 20:53 01/26/17 07:49 01/26/17 08:30 Bedside Glucose 71 71 72 White Blood Count 8.8 # Red Blood Count 3.02 L Hemoglobin 9.1 L Hematocrit 28.9 L Mean Corpuscular Volume 95.7 Mean Corpuscular Hemoglobin 30.1 Mean Corpuscular Hemoglobin Concent 31.5 L Red Cell Distribution Width 14.7 H Platelet Count 328 Mean Platelet Volume 8.4 Neutrophils % 66.7 Lymphocytes % 20.4 Monocytes % 6.1 Eosinophils % 5.5 Basophils % 0.7 Nucleated Red Blood Cells % 0.0 Neutrophils # 5.9 Lymphocytes # 1.8 Monocytes # 0.5 Eosinophils # 0.5 Basophils # 0.1 Nucleated Red Blood Cells # 0.0 Sodium Level 130 L Potassium Level 4.4 Chloride Level 97 Carbon Dioxide Level 25 Anion Gap 12 Blood Urea Nitrogen 35 H Creatinine 3.38 H Glucose Level 60 L Calcium Level 8.7 Phosphorus Level 5.5 H Magnesium Level 2.0 Test 01/26/17 11:52 01/26/17 12:08 01/26/17 12:23 01/26/17 12:40 Bedside Glucose 66 L 63 L 66 L 133 Test 01/26/17 12:56 Bedside Glucose 115 Medications Medications Current Medications Aspirin (Aspirin) 162 mg DAILY PO Last administered on 01/26/17 09:08; Admin Dose 162 MG; Start 01/13/17 at 09:00 Atorvastatin Calcium (Lipitor) 80 mg QHS PO Last administered on 01/25/17 21: 07; Admin Dose 80 MG; Start 01/12/17 at 21:00 Metoclopramide HCl (Reglan) 5 mg BID PO Last administered on 01/26/17 09:09; Admin Dose 5 MG; Start 01/12/17 at 21:00 Metoprolol Tartrate (Lopressor) 100 mg BID PO Last administered on 01/25/17 21 :07; Admin Dose 100 MG; Start 01/12/17 at 21:00 Pantoprazole (Protonix Tab) 40 mg DAILY@06 PO Last administered on 01/26/17 05 :30; Admin Dose 40 MG; Start 01/13/17 at 06:00 Sertraline HCl (Zoloft) 50 mg DAILY PO Last administered on 01/26/17 09:09; Admin Dose 50 MG; Start 01/13/17 at 09:00 Tolterodine Tartrate (Detrol) 2 mg BID PO Last administered on 01/26/17 09:09 ; Admin Dose 2 MG; Start 01/12/17 at 21:00 Diagnostic Test (Pha) (Accu-Chek) 1 ea 02 XX Last administered on 01/18/17 02: 21; Admin Dose 1 EA; Start 01/13/17 at 02:00 Warfarin Sodium (Coumadin) 5 mg DAILY@17 PO Last administered on 01/18/17 18: 24; Admin Dose 5 MG; Start 01/12/17 at 17:00; Status Future Hold Miscellaneous Information 1 ea NOTE XX ; Start 01/12/17 at 13:00 Glucose (Glutose) 15 gm Q15M PRN PO DECREASED GLUCOSE; Start 01/12/17 at 13:00 Glucose (Glutose) 22.5 gm Q15M PRN PO DECREASED GLUCOSE; Start 01/12/17 at 13:00 Dextrose (D50w Syringe) 25 ml Q15M PRN IV DECREASED GLUCOSE Last administered on 01/26/17 12:31; Admin Dose 25 ML; Start 01/12/17 at 13:00 Dextrose (D50w Syringe) 50 ml Q15M PRN IV DECREASED GLUCOSE; Start 01/12/17 at 13:00 Glucagon (Glucagen) 1 mg Q15M PRN IM DECREASED GLUCOSE; Start 01/12/17 at 13:00 Glucose (Glutose) 15 gm Q15M PRN BUCCAL DECREASED GLUCOSE Last administered on 01/26/17 12:12; Admin Dose 15 GM; Start 01/12/17 at 13:00 Morphine Sulfate (morphine) 2 mg Q3H PRN IV PAIN LEVEL 6-10 Last administered on 01/26/17 05:28; Admin Dose 2 MG; Start 01/14/17 at 04:00 Bisacodyl (Dulcolax Supp) 10 mg Q24H PRN [place] CONSTIPATION; Start 01/15/17 at 09: 30 Docusate Sodium (Colace) 100 mg QHS PRN PO CONSTIPATION Last administered on 08:17; Admin Dose 100 MG; Start 01/15/17 at 09:30 Lactulose (Enulose) 20 gm DAILY PRN PO CONSTIPATION Last administered on 01:45; Admin Dose 20 GM; Start 01/15/17 at 09:30 Senna (Senokot) 1 tab DAILY PO Last administered on 01/26/17 09:08; Admin Dose 1 TAB; Start 01/15/17 at 09:30 Sodium Biphosphate/ Sodium Phosphate (Fleet Enema) 133 ml DAILY PRN [place] CONSTIPATION; Start 01/15/17 at 09:30 Amlodipine Besylate (Norvasc) 10 mg DAILY PO Last administered on 01/25/17 09: 42; Admin Dose 10 MG; Start 01/16/17 at 09:00 Hydralazine HCl (Apresoline) 75 mg TID PO Last administered on 01/26/17 14:09 ; Admin Dose 75 MG; Start 01/16/17 at 09:00 Clonidine (Catapres) 0.1 mg Q6H PRN PO ELEVATED SYSTOLIC BP Last administered on 01/22/17 16:04; Admin Dose 0.1 MG; Start 01/16/17 at 01:30 Polyethylene Glycol (Miralax) 17 gm BID PO Last administered on 01/26/17 09:14 ; Admin Dose 17 GM; Start 01/16/17 at 21:00 Lubiprostone 24 mcg 24 mcg BID PO Last administered on 01/26/17 09:09; Admin Dose 24 MCG; Start 01/17/17 at 09:00 Ceftriaxone Sodium (Rocephin) 50 ml @ 100 mls/hr Q24H IVPB Last administered on 01/25/17 18:01; Admin Dose 100 MLS/HR; Start 01/17/17 at 17:00 Zolpidem Tartrate (Ambien) 5 mg HS PRN PO INSOMNIA Last administered on 22:40; Admin Dose 5 MG; Start 01/17/17 at 21:30 Acetaminophen/ Hydrocodone Bitart ([place] (10/325)) 1 tab Q4H PRN PO 4-6 PAIN Last administered on 01/23/17 23:34; Admin Dose 1 TAB; Start 01/19/17 at 10:00 Oxycodone HCl (Oxycontin) 10 mg Q8H PO Last administered on 01/26/17 11:59; Admin Dose 10 MG; Start 01/19/17 at 12:00 Lidocaine (Lidoderm) 1 patch DAILY TD Last administered on 01/26/17 09:14; Admin Dose 1 PATCH; Start 01/19/17 at 13:00 Ondansetron HCl (Zofran Inj) 4 mg Q6H PRN IV NAUSEA AND/OR VOMITING Last administered on 9/15/17at 15:33; Admin Dose 4 MG; Start 01/21/17 at 08:30 Nitroglycerin (Nitroglycerin 2% Oint) 1 inch Q6 TD Last administered on 18:03; Admin Dose 1 INCH; Start 01/22/17 at 04:00 Naloxone HCl 0.2 mg 0.2 mg Q2M PRN IV RR 8 BREATHS/MIN OR LESS; Start 01/22/17 at 11:00 Linezolid (Zyvox 600mg/D5W (Pmx)) 300 ml @ 300 mls/hr Q12 IVPB Last administered on 01/26/17 09:14; Admin Dose 300 MLS/HR; Start 01/22/17 at 13:30 Heparin Sodium (Porcine) (Heparin (5000 Units/0.5 ml)) 5,000 unit BID SC Last administered on 01/26/17 09:12; Admin Dose 5,000 UNIT; Start 01/25/17 at 09:00 ADALID LEO NP Jan 26, 2017 15:23
--- NOTE | 2017-01-26 15:26 | CONS ---
Date/Time of Note Date/Time of Note DATE: 01/26/17 TIME: 15:25 Consult Date/Type/Reason Admit Date/Time Jan 12, 2017 at 10:35 Initial Consult Date 01/12/17 Type of Consultation: CARDIOLOGY Ordering Provider: SAM CANTU DO Subjective CARDIOLOGY FOLLOW UP NOTE Discussed with staff and . rhythm was reviewed. pt remains in NSR. no AFIB. PT s/p surgery 01/22. she denies any chest pain or pressure or palpitation to me. she denies any back pain to me now and states she has been able to walk objective: General: no acute distress HEENT: NC/AT. pupils are equal. round. NECK: NO JVD. no stridor. CV: RRR. systolic murmur; no gallop or rubs. PULM: no wheezing or rhonchi. GI: SOFT, NT, ND, no rebound or guarding Extremity: trace B/L LE edema. no clubbing. neuro: awake and alert, Psych: calm and pleasant rectal: deferred Objective Vital Signs Date Time Temp Pulse Resp B/P Pulse Ox O2 Delivery O2 Flow Rate FiO2 01/26/17 12:00 72 01/26/17 11:09 97.9 20 129/63 96 01/26/17 02:36 2.0 28 01/23/17 22:00 Room Air Intake and Output 01/25/17 01/25/17 01/26/17 15:00 23:00 07:00 Intake Total 1070 ml 850 ml Output Total 1000 ml Balance 70 ml 850 ml Results/Medications Result Diagram: 01/26/17 0749 01/26/17 0749 Results 24 hrs Laboratory Tests Test 01/25/17 18:06 01/25/17 20:53 01/26/17 07:49 01/26/17 08:30 Bedside Glucose 71 71 72 White Blood Count 8.8 # Red Blood Count 3.02 L Hemoglobin 9.1 L Hematocrit 28.9 L Mean Corpuscular Volume 95.7 Mean Corpuscular Hemoglobin 30.1 Mean Corpuscular Hemoglobin Concent 31.5 L Red Cell Distribution Width 14.7 H Platelet Count 328 Mean Platelet Volume 8.4 Neutrophils % 66.7 Lymphocytes % 20.4 Monocytes % 6.1 Eosinophils % 5.5 Basophils % 0.7 Nucleated Red Blood Cells % 0.0 Neutrophils # 5.9 Lymphocytes # 1.8 Monocytes # 0.5 Eosinophils # 0.5 Basophils # 0.1 Nucleated Red Blood Cells # 0.0 Sodium Level 130 L Potassium Level 4.4 Chloride Level 97 Carbon Dioxide Level 25 Anion Gap 12 Blood Urea Nitrogen 35 H Creatinine 3.38 H Glucose Level 60 L Calcium Level 8.7 Phosphorus Level 5.5 H Magnesium Level 2.0 Test 01/26/17 11:52 01/26/17 12:08 01/26/17 12:23 01/26/17 12:40 Bedside Glucose 66 L 63 L 66 L 133 Test 01/26/17 12:56 Bedside Glucose 115 Medications Current Medications Aspirin (Aspirin) 162 mg DAILY PO Last administered on 01/26/17 09:08; Admin Dose 162 MG; Start 01/13/17 at 09:00 Atorvastatin Calcium (Lipitor) 80 mg QHS PO Last administered on 01/25/17 21: 07; Admin Dose 80 MG; Start 01/12/17 at 21:00 Metoclopramide HCl (Reglan) 5 mg BID PO Last administered on 01/26/17 09:09; Admin Dose 5 MG; Start 01/12/17 at 21:00 Metoprolol Tartrate (Lopressor) 100 mg BID PO Last administered on 01/25/17 21 :07; Admin Dose 100 MG; Start 01/12/17 at 21:00 Pantoprazole (Protonix Tab) 40 mg DAILY@06 PO Last administered on 01/26/17 05 :30; Admin Dose 40 MG; Start 01/13/17 at 06:00 Sertraline HCl (Zoloft) 50 mg DAILY PO Last administered on 01/26/17 09:09; Admin Dose 50 MG; Start 01/13/17 at 09:00 Tolterodine Tartrate (Detrol) 2 mg BID PO Last administered on 01/26/17 09:09 ; Admin Dose 2 MG; Start 01/12/17 at 21:00 Diagnostic Test (Pha) (Accu-Chek) 1 ea 02 XX Last administered on 01/18/17 02: 21; Admin Dose 1 EA; Start 01/13/17 at 02:00 Warfarin Sodium (Coumadin) 5 mg DAILY@17 PO Last administered on 01/18/17 18: 24; Admin Dose 5 MG; Start 01/12/17 at 17:00; Status Future Hold Miscellaneous Information 1 ea NOTE XX ; Start 01/12/17 at 13:00 Glucose (Glutose) 15 gm Q15M PRN PO DECREASED GLUCOSE; Start 01/12/17 at 13:00 Glucose (Glutose) 22.5 gm Q15M PRN PO DECREASED GLUCOSE; Start 01/12/17 at 13:00 Dextrose (D50w Syringe) 25 ml Q15M PRN IV DECREASED GLUCOSE Last administered on 01/26/17 12:31; Admin Dose 25 ML; Start 01/12/17 at 13:00 Dextrose (D50w Syringe) 50 ml Q15M PRN IV DECREASED GLUCOSE; Start 01/12/17 at 13:00 Glucagon (Glucagen) 1 mg Q15M PRN IM DECREASED GLUCOSE; Start 01/12/17 at 13:00 Glucose (Glutose) 15 gm Q15M PRN BUCCAL DECREASED GLUCOSE Last administered on 01/26/17 12:12; Admin Dose 15 GM; Start 01/12/17 at 13:00 Morphine Sulfate (morphine) 2 mg Q3H PRN IV PAIN LEVEL 6-10 Last administered on 01/26/17 05:28; Admin Dose 2 MG; Start 01/14/17 at 04:00 Bisacodyl (Dulcolax Supp) 10 mg Q24H PRN [place] CONSTIPATION; Start 01/15/17 at 09: 30 Docusate Sodium (Colace) 100 mg QHS PRN PO CONSTIPATION Last administered on 08:17; Admin Dose 100 MG; Start 01/15/17 at 09:30 Lactulose (Enulose) 20 gm DAILY PRN PO CONSTIPATION Last administered on 01:45; Admin Dose 20 GM; Start 01/15/17 at 09:30 Senna (Senokot) 1 tab DAILY PO Last administered on 01/26/17 09:08; Admin Dose 1 TAB; Start 01/15/17 at 09:30 Sodium Biphosphate/ Sodium Phosphate (Fleet Enema) 133 ml DAILY PRN [place] CONSTIPATION; Start 01/15/17 at 09:30 Amlodipine Besylate (Norvasc) 10 mg DAILY PO Last administered on 01/25/17 09: 42; Admin Dose 10 MG; Start 01/16/17 at 09:00 Hydralazine HCl (Apresoline) 75 mg TID PO Last administered on 01/26/17 14:09 ; Admin Dose 75 MG; Start 01/16/17 at 09:00 Clonidine (Catapres) 0.1 mg Q6H PRN PO ELEVATED SYSTOLIC BP Last administered on 01/22/17 16:04; Admin Dose 0.1 MG; Start 01/16/17 at 01:30 Polyethylene Glycol (Miralax) 17 gm BID PO Last administered on 01/26/17 09:14 ; Admin Dose 17 GM; Start 01/16/17 at 21:00 Lubiprostone 24 mcg 24 mcg BID PO Last administered on 01/26/17 09:09; Admin Dose 24 MCG; Start 01/17/17 at 09:00 Ceftriaxone Sodium (Rocephin) 50 ml @ 100 mls/hr Q24H IVPB Last administered on 01/25/17 18:01; Admin Dose 100 MLS/HR; Start 01/17/17 at 17:00 Zolpidem Tartrate (Ambien) 5 mg HS PRN PO INSOMNIA Last administered on 22:40; Admin Dose 5 MG; Start 01/17/17 at 21:30 Acetaminophen/ Hydrocodone Bitart ([place] (10/325)) 1 tab Q4H PRN PO 4-6 PAIN Last administered on 01/23/17 23:34; Admin Dose 1 TAB; Start 01/19/17 at 10:00 Oxycodone HCl (Oxycontin) 10 mg Q8H PO Last administered on 01/26/17 11:59; Admin Dose 10 MG; Start 01/19/17 at 12:00 Lidocaine (Lidoderm) 1 patch DAILY TD Last administered on 01/26/17 09:14; Admin Dose 1 PATCH; Start 01/19/17 at 13:00 Ondansetron HCl (Zofran Inj) 4 mg Q6H PRN IV NAUSEA AND/OR VOMITING Last administered on 01/22/17 15:33; Admin Dose 4 MG; Start 01/21/17 at 08:30 Nitroglycerin (Nitroglycerin 2% Oint) 1 inch Q6 TD Last administered on 18:03; Admin Dose 1 INCH; Start 01/22/17 at 04:00 Naloxone HCl 0.2 mg 0.2 mg Q2M PRN IV RR 8 BREATHS/MIN OR LESS; Start 01/22/17 at 11:00 Linezolid (Zyvox 600mg/D5W (Pmx)) 300 ml @ 300 mls/hr Q12 IVPB Last administered on 01/26/17 09:14; Admin Dose 300 MLS/HR; Start 01/22/17 at 13:30 Heparin Sodium (Porcine) (Heparin (5000 Units/0.5 ml)) 5,000 unit BID SC Last administered on 01/26/17 09:12; Admin Dose 5,000 UNIT; Start 01/25/17 at 09:00 Assessment/Plan Chief Complaint/Hosp Course 1. Slurred speech:improved now. F/U with neurology rec. . 2. End-stage renal disease. HD as per renal 3. Hypertension. Continue current blood pressure regimen. HD. 4. History of chronic obstructive pulmonary disease. Continue medical management. 5. History of P afib.per old records. currently in NSR. coumadin in on hold for neurosurgical intervention. consider resuming coumadin when ok with neurosurgery 6. History of T7 paraplegia. Continue physical therapy. 7. Anemia. defer to IM 8. Dyslipidemia. Continue statin therapy. 09. Diabetes. Continue Accu-Cheks and insulin sliding scale. [facility] L[facility]-S[facility]Disk[facility]: s/p L5-S1 TLIF with ISF placement. currently is ICU. Coumadin is on hold to be resumed once ok with neurosurgery team abx as per ID rec. Thank you for this referral I will continue to follow along with you. TAMERA BAILEY MD [facility] Problems: TAMERA BAILEY MD Jan 26, 2017 15:26
[2017-01-26] MEDS: CEFTRIAXONE 2 GM/NS 50 ML IVPB SCH (17:22)
[2017-01-26] MEDS: ATORVASTATIN 80 MG TAB PO SCH (21:20)
[2017-01-27] VITALS (21 sets, daily range): BP systolic 102–166; BP diastolic 60–82; PULSE 70–88; RESP 16–20
[2017-01-27] MEDS: ACCU-CHEK XX SCH (01:20)
[2017-01-27] MEDS: oxyCODONE (CR) 10 MG TAB [oxyCONTIN] PO SCH ×3 (04:00→20:17)
[2017-01-27] MEDS: PANTOPRAZOLE (EC) 40 MG TAB PO SCH (05:45)
[2017-01-27] MEDS: NITROGLYCERIN 2% 1 GM OINT PKT TD SCH ×4 (05:47→17:02)
[2017-01-27] MEDS: INSULIN ASPART [NOVOLOG] 3 ML PEN SC SCH ×4 (07:55→21:00)
--- NOTE | 2017-01-27 08:27 | CONS ---
Date/Time of Note Date/Time of Note DATE: 01/27/17 TIME: 08:25 Consult Date/Type/Reason Admit Date/Time Jan 12, 2017 at 10:35 Initial Consult Date 01/12/17 Type of Consultation: CARDIOLOGY Ordering Provider: SAM CANTU DO Subjective CARDIOLOGY FOLLOW UP NOTE Discussed with staff rhythm was reviewed. pt remains in NSR. no AFIB. PT s/p surgery 01/22. she denies any chest pain or pressure or palpitation to me. she has mild back pain pt is on HD now objective: General: no acute distress HEENT: NC/AT. pupils are equal. round. NECK: NO JVD. no stridor. CV: RRR. systolic murmur; no gallop or rubs. PULM: no wheezing or rhonchi. GI: SOFT, NT, ND, no rebound or guarding Extremity: trace B/L LE edema. no clubbing. neuro: awake and alert, Psych: calm and pleasant rectal: deferred Objective Vital Signs Date Time Temp Pulse Resp B/P Pulse Ox O2 Delivery O2 Flow Rate FiO2 01/27/17 08:00 83 01/27/17 07:50 2.0 01/27/17 07:09 98.0 20 153/78 98 01/26/17 02:36 28 01/23/17 22:00 Room Air Intake and Output 01/26/17 01/26/17 01/27/17 15:00 23:00 07:00 Intake Total 1070 ml 900 ml Balance 1070 ml 900 ml Results/Medications Result Diagram: 01/26/17 0749 01/26/17 0749 Results 24 hrs Laboratory Tests Test 01/26/17 08:30 01/26/17 11:52 01/26/17 12:08 01/26/17 12:23 Bedside Glucose 72 66 L 63 L 66 L Test 01/26/17 12:40 01/26/17 12:56 01/26/17 17:18 01/26/17 20:30 Bedside Glucose 133 115 100 120 Test 01/27/17 08:02 Bedside Glucose 106 Medications Current Medications Aspirin (Aspirin) 162 mg DAILY PO Last administered on 01/26/17 09:08; Admin Dose 162 MG; Start 01/13/17 at 09:00 Atorvastatin Calcium (Lipitor) 80 mg QHS PO Last administered on 01/26/17 21: 20; Admin Dose 80 MG; Start 01/12/17 at 21:00 Metoclopramide HCl (Reglan) 5 mg BID PO Last administered on 01/26/17 21:19; Admin Dose 5 MG; Start 01/12/17 at 21:00 Metoprolol Tartrate (Lopressor) 100 mg BID PO Last administered on 01/26/17 21 :21; Admin Dose 100 MG; Start 01/12/17 at 21:00 Pantoprazole (Protonix Tab) 40 mg DAILY@06 PO Last administered on 01/27/17 05 :45; Admin Dose 40 MG; Start 01/13/17 at 06:00 Sertraline HCl (Zoloft) 50 mg DAILY PO Last administered on 01/26/17 09:09; Admin Dose 50 MG; Start 01/13/17 at 09:00 Tolterodine Tartrate (Detrol) 2 mg BID PO Last administered on 01/26/17 21:19 ; Admin Dose 2 MG; Start 01/12/17 at 21:00 Diagnostic Test (Pha) (Accu-Chek) 1 ea 02 XX Last administered on 01/18/17 02: 21; Admin Dose 1 EA; Start 01/13/17 at 02:00 Warfarin Sodium (Coumadin) 5 mg DAILY@17 PO Last administered on 01/18/17 18: 24; Admin Dose 5 MG; Start 01/12/17 at 17:00; Status Future Hold Miscellaneous Information 1 ea NOTE XX ; Start 01/12/17 at 13:00 Glucose (Glutose) 15 gm Q15M PRN PO DECREASED GLUCOSE; Start 01/12/17 at 13:00 Glucose (Glutose) 22.5 gm Q15M PRN PO DECREASED GLUCOSE; Start 01/12/17 at 13:00 Dextrose (D50w Syringe) 25 ml Q15M PRN IV DECREASED GLUCOSE Last administered on 01/26/17 12:31; Admin Dose 25 ML; Start 01/12/17 at 13:00 Dextrose (D50w Syringe) 50 ml Q15M PRN IV DECREASED GLUCOSE; Start 01/12/17 at 13:00 Glucagon (Glucagen) 1 mg Q15M PRN IM DECREASED GLUCOSE; Start 01/12/17 at 13:00 Glucose (Glutose) 15 gm Q15M PRN BUCCAL DECREASED GLUCOSE Last administered on 01/26/17 12:12; Admin Dose 15 GM; Start 01/12/17 at 13:00 Morphine Sulfate (morphine) 2 mg Q3H PRN IV PAIN LEVEL 6-10 Last administered on 01/26/17 05:28; Admin Dose 2 MG; Start 01/14/17 at 04:00 Bisacodyl (Dulcolax Supp) 10 mg Q24H PRN [place] CONSTIPATION; Start 01/15/17 at 09: 30 Docusate Sodium (Colace) 100 mg QHS PRN PO CONSTIPATION Last administered on 08:17; Admin Dose 100 MG; Start 01/15/17 at 09:30 Lactulose (Enulose) 20 gm DAILY PRN PO CONSTIPATION Last administered on 01:45; Admin Dose 20 GM; Start 01/15/17 at 09:30 Senna (Senokot) 1 tab DAILY PO Last administered on 01/26/17 09:08; Admin Dose 1 TAB; Start 01/15/17 at 09:30 Sodium Biphosphate/ Sodium Phosphate (Fleet Enema) 133 ml DAILY PRN [place] CONSTIPATION; Start 01/15/17 at 09:30 Amlodipine Besylate (Norvasc) 10 mg DAILY PO Last administered on 01/25/17 09: 42; Admin Dose 10 MG; Start 01/16/17 at 09:00 Hydralazine HCl (Apresoline) 75 mg TID PO Last administered on 01/26/17 21:22 ; Admin Dose 75 MG; Start 01/16/17 at 09:00 Clonidine (Catapres) 0.1 mg Q6H PRN PO ELEVATED SYSTOLIC BP Last administered on 01/27/17 05:47; Admin Dose 0.1 MG; Start 01/16/17 at 01:30 Polyethylene Glycol (Miralax) 17 gm BID PO Last administered on 01/26/17 09:14 ; Admin Dose 17 GM; Start 01/16/17 at 21:00 Lubiprostone 24 mcg 24 mcg BID PO Last administered on 01/26/17 21:00; Admin Dose 24 MCG; Start 01/17/17 at 09:00 Ceftriaxone Sodium (Rocephin) 50 ml @ 100 mls/hr Q24H IVPB Last administered on 01/26/17 17:22; Admin Dose 100 MLS/HR; Start 01/17/17 at 17:00 Zolpidem Tartrate (Ambien) 5 mg HS PRN PO INSOMNIA Last administered on 22:40; Admin Dose 5 MG; Start 01/17/17 at 21:30 Acetaminophen/ Hydrocodone Bitart ([place] (10/325)) 1 tab Q4H PRN PO 4-6 PAIN Last administered on 01/23/17 23:34; Admin Dose 1 TAB; Start 01/19/17 at 10:00 Oxycodone HCl (Oxycontin) 10 mg Q8H PO Last administered on 01/26/17 21:20; Admin Dose 10 MG; Start 01/19/17 at 12:00 Lidocaine (Lidoderm) 1 patch DAILY TD Last administered on 01/26/17 09:14; Admin Dose 1 PATCH; Start 01/19/17 at 13:00 Ondansetron HCl (Zofran Inj) 4 mg Q6H PRN IV NAUSEA AND/OR VOMITING Last administered on 01/22/17 15:33; Admin Dose 4 MG; Start 01/21/17 at 08:30 Nitroglycerin (Nitroglycerin 2% Oint) 1 inch Q6 TD Last administered on 05:47; Admin Dose 1 INCH; Start 01/22/17 at 04:00 Naloxone HCl 0.2 mg 0.2 mg Q2M PRN IV RR 8 BREATHS/MIN OR LESS; Start 01/22/17 at 11:00 Linezolid (Zyvox 600mg/D5W (Pmx)) 300 ml @ 300 mls/hr Q12 IVPB Last administered on 01/26/17 21:23; Admin Dose 300 MLS/HR; Start 01/22/17 at 13:30 Heparin Sodium (Porcine) (Heparin (5000 Units/0.5 ml)) 5,000 unit BID SC Last administered on 01/26/17 21:22; Admin Dose 5,000 UNIT; Start 01/25/17 at 09:00 Assessment/Plan Chief Complaint/Hosp Course 1. Slurred speech:improved now. F/U with neurology rec. . 2. End-stage renal disease. cont HD as per renal 3. Hypertension. Continue current blood pressure regimen. cont HD. 4. History of chronic obstructive pulmonary disease. Continue medical management. 5. History of P afib.per old records. currently in NSR. coumadin in on hold for neurosurgical intervention. resume coumadin when ok with neurosurgery 6. History of T7 paraplegia. Continue physical therapy. s/p surgery 7. Anemia. defer to IM 8. Dyslipidemia. Continue statin therapy. 09. Diabetes. Continue Accu-Cheks and insulin sliding scale. [facility] and L5-S1 Osteo/Diskitis: s/p L5-S1 TLIF with ISF placement. currently is ICU. Coumadin is on hold to be resumed once ok with neurosurgery team abx as per ID rec. Thank you for this referral I will continue to follow along with you. TAMERA BAILEY MD [facility] Problems: TAMERA BAILEY MD Jan 27, 2017 08:27
--- NOTE | 2017-01-27 09:33 | PN ---
DATE: 01/27/2017 SUBJECTIVE DATA: The patient is currently having hemodialysis and tolerating well. Patient's pain is controlled. OBJECTIVE DATA: VITAL SIGNS: Blood pressure is 153/78, respirations 20, pulse 76, temperature 98.0 HEENT: Head is normocephalic. NECK: Supple. HEART: Regular rate. LUNGS: Diminished breath sounds at the base. ABDOMEN: Soft, nontender to palpation. No rebound or guarding. EXTREMITIES: Negative for clubbing, cyanosis. No edema. DERMATOLOGIC: Clean. No rashes. MUSCULOSKELETAL: No joint effusion. NEUROLOGIC: No change in exam. MEDICATIONS: The patient's medications have been reviewed. LABORATORY AND DIAGNOSTIC DATA: Have been reviewed. No new labs this morning. ASSESSMENT AND PLAN: 1. Discitis, L5-S1. Patient is status post TLIF with ISF placement, currently stable. Continue current antibiotic regimen. Follow up with Neurosurgery recommendations. 2. Chronic back pain, improving. Continue current pain regimen. 3. End-stage renal disease. The patient is on dialysis today. 4. Hypertension, controlled. Continue blood pressure regimen. 5. Paroxysmal atrial fibrillation. Currently sinus rhythm. Continue medical management. Will resume Coumadin 7-10 days following surgery. 6. Transient ischemic attack, improved. Continue medical management. 7. Anemia. Monitor H and H levels. Continue Epogen. 8. Mineral bone disorder. Monitor calcium and phosphorus levels. 9. Patient had episode of hypoglycemia. Continue sliding scale. 10. Gastrointestinal and deep venous thrombosis prophylaxis. Dictated By: Buck Seals DO /saul/yandy /Document#: [id number]
[2017-01-27] MEDS: SEVELAMER 800 MG TAB PO SCH ×3 (09:59→17:23)
[2017-01-27] MEDS: TOLTERODINE 2 MG TAB PO SCH ×2 (09:59→20:17)
[2017-01-27] MEDS: SENNA TAB PO SCH (10:00)
[2017-01-27] MEDS: AMLODIPINE 10 MG TAB PO SCH (10:00)
[2017-01-27] MEDS: LUBIPROSTONE 24 MCG CAP PO SCH ×2 (10:00→20:17)
[2017-01-27] MEDS: METOCLOPRAMIDE 5 MG TAB PO SCH ×2 (10:01→20:16)
[2017-01-27] MEDS: POLYETHYLENE GLYCOL 17 GM PACKET PO SCH ×2 (10:01→20:19)
[2017-01-27] MEDS: SERTRALINE 50 MG TAB PO SCH (10:01)
[2017-01-27] MEDS: METOPROLOL 100 MG TAB PO SCH ×2 (10:01→20:18)
[2017-01-27] MEDS: ASPIRIN 81 MG TAB PO SCH (10:01)
[2017-01-27] MEDS: LINEZOLID 600 MG/D5W (PMX) 300 ML IVPB SCH (10:02)
[2017-01-27] MEDS: LIDOCAINE 5% PATCH TD SCH (10:02)
[2017-01-27] MEDS: HEPARIN 5,000 UNIT/0.5 ML VIAL SC SCH ×2 (10:31→20:38)
--- NOTE | 2017-01-27 12:37 | CONS ---
Date/Time of Note Date/Time of Note DATE: 01/27/17 TIME: 12:36 Assessment/Plan Assessment/Plan Chief Complaint/Hosp Course SUBJECTIVE DATA: Sleeping, looks comfortable afebrile Temperature 98.3 pulse 77 respirations 20 blood pressure 123/60 saturation 98% on room air ANTIMICROBIALS: Zyvox, ceftriaxone. INDWELLING: The patient has right chest PermCath. PHYSICAL EXAMINATION: GENERAL: Well-developed, obese, middle-aged woman who is in no distress. HEENT: Head atraumatic, normocephalic. Sclerae anicteric. Buccal mucosa dry. NECK: Supple. CHEST: Chest rise symmetrical. Breath sounds diminished at the bases. HEART: S1, S2. ABDOMEN: Soft, bowel sounds present. ASSESSMENT: 1. Spinal discitis with osteomyelitis, status post surgical intervention on 01/22/2017. 2. End-stage renal disease, on hemodialysis. 3. Hypertension. 4. Vancomycin resistant enterococcus (VRE) urinary tract infection (UTI). 5. Anemia. 6. Diabetes. PLAN: 1. The patient remains stable. 2. Continue present care. 3. Change Zyvox to vancomycin, continue antibiotics for total of six weeks. 4. Follow neurosurgical recommendations. Problems: Consultation Date/Type/Reason Admit Date/Time Jan 12, 2017 at 10:35 Initial Consult Date 01/12/17 Type of Consultation: ID Referring Provider: SAM CANTU DO Exam/Review of Systems Vital Signs Vitals Vital Signs Date Time Temp Pulse Resp B/P Pulse Ox O2 Delivery O2 Flow Rate FiO2 01/27/17 11:43 98.3 77 20 123/60 98 01/27/17 07:50 2.0 01/26/17 02:36 28 01/23/17 22:00 Room Air Intake and Output 01/26/17 01/26/17 01/27/17 15:00 23:00 07:00 Intake Total 1070 ml 900 ml Balance 1070 ml 900 ml Results Result Diagram: 01/26/17 0749 01/26/17 0749 Results 24 hrs Laboratory Tests Test 01/26/17 12:40 01/26/17 12:56 01/26/17 17:18 01/26/17 20:30 Bedside Glucose 133 115 100 120 Test 01/27/17 08:02 01/27/17 12:12 Bedside Glucose 106 134 Medications Medications Current Medications Aspirin (Aspirin) 162 mg DAILY PO Last administered on 01/27/17 10:01; Admin Dose 162 MG; Start 01/13/17 at 09:00 Atorvastatin Calcium (Lipitor) 80 mg QHS PO Last administered on 01/26/17 21: 20; Admin Dose 80 MG; Start 01/12/17 at 21:00 Metoclopramide HCl (Reglan) 5 mg BID PO Last administered on 01/27/17 10:01; Admin Dose 5 MG; Start 01/12/17 at 21:00 Metoprolol Tartrate (Lopressor) 100 mg BID PO Last administered on 01/27/17 10 :01; Admin Dose 100 MG; Start 01/12/17 at 21:00 Pantoprazole (Protonix Tab) 40 mg DAILY@06 PO Last administered on 01/27/17 05 :45; Admin Dose 40 MG; Start 01/13/17 at 06:00 Sertraline HCl (Zoloft) 50 mg DAILY PO Last administered on 01/27/17 10:01; Admin Dose 50 MG; Start 01/13/17 at 09:00 Tolterodine Tartrate (Detrol) 2 mg BID PO Last administered on 01/27/17 09:59 ; Admin Dose 2 MG; Start 01/12/17 at 21:00 Diagnostic Test (Pha) (Accu-Chek) 1 ea 02 XX Last administered on 01/18/17 02: 21; Admin Dose 1 EA; Start 01/13/17 at 02:00 Warfarin Sodium (Coumadin) 5 mg DAILY@17 PO Last administered on 01/18/17 18: 24; Admin Dose 5 MG; Start 01/12/17 at 17:00; Status Future Hold Miscellaneous Information 1 ea NOTE XX ; Start 01/12/17 at 13:00 Glucose (Glutose) 15 gm Q15M PRN PO DECREASED GLUCOSE; Start 01/12/17 at 13:00 Glucose (Glutose) 22.5 gm Q15M PRN PO DECREASED GLUCOSE; Start 01/12/17 at 13:00 Dextrose (D50w Syringe) 25 ml Q15M PRN IV DECREASED GLUCOSE Last administered on 01/26/17 12:31; Admin Dose 25 ML; Start 01/12/17 at 13:00 Dextrose (D50w Syringe) 50 ml Q15M PRN IV DECREASED GLUCOSE; Start 01/12/17 at 13:00 Glucagon (Glucagen) 1 mg Q15M PRN IM DECREASED GLUCOSE; Start 01/12/17 at 13:00 Glucose (Glutose) 15 gm Q15M PRN BUCCAL DECREASED GLUCOSE Last administered on 01/26/17 12:12; Admin Dose 15 GM; Start 01/12/17 at 13:00 Morphine Sulfate (morphine) 2 mg Q3H PRN IV PAIN LEVEL 6-10 Last administered on 01/26/17 05:28; Admin Dose 2 MG; Start 01/14/17 at 04:00 Bisacodyl (Dulcolax Supp) 10 mg Q24H PRN [place] CONSTIPATION; Start 01/15/17 at 09: 30 Docusate Sodium (Colace) 100 mg QHS PRN PO CONSTIPATION Last administered on 08:17; Admin Dose 100 MG; Start 01/15/17 at 09:30 Lactulose (Enulose) 20 gm DAILY PRN PO CONSTIPATION Last administered on 01:45; Admin Dose 20 GM; Start 01/15/17 at 09:30 Senna (Senokot) 1 tab DAILY PO Last administered on 01/27/17 10:00; Admin Dose 1 TAB; Start 01/15/17 at 09:30 Sodium Biphosphate/ Sodium Phosphate (Fleet Enema) 133 ml DAILY PRN [place] CONSTIPATION; Start 01/15/17 at 09:30 Amlodipine Besylate (Norvasc) 10 mg DAILY PO Last administered on 01/27/17 10: 00; Admin Dose 10 MG; Start 01/16/17 at 09:00 Hydralazine HCl (Apresoline) 75 mg TID PO Last administered on 01/27/17 12:16 ; Admin Dose 75 MG; Start 01/16/17 at 09:00 Clonidine (Catapres) 0.1 mg Q6H PRN PO ELEVATED SYSTOLIC BP Last administered on 01/27/17 05:47; Admin Dose 0.1 MG; Start 01/16/17 at 01:30 Polyethylene Glycol (Miralax) 17 gm BID PO Last administered on 01/27/17 10:01 ; Admin Dose 17 GM; Start 01/16/17 at 21:00 Lubiprostone 24 mcg 24 mcg BID PO Last administered on 01/27/17 10:00; Admin Dose 24 MCG; Start 01/17/17 at 09:00 Ceftriaxone Sodium (Rocephin) 50 ml @ 100 mls/hr Q24H IVPB Last administered on 01/26/17 17:22; Admin Dose 100 MLS/HR; Start 01/17/17 at 17:00 Zolpidem Tartrate (Ambien) 5 mg HS PRN PO INSOMNIA Last administered on 22:40; Admin Dose 5 MG; Start 01/17/17 at 21:30 Acetaminophen/ Hydrocodone Bitart ([place] (10)) 1 tab Q4H PRN PO 4-6 PAIN Last administered on 01/23/17 23:34; Admin Dose 1 TAB; Start 01/19/17 at 10:00 Oxycodone HCl (Oxycontin) 10 mg Q8H PO Last administered on 01/27/17 12:15; Admin Dose 10 MG; Start 01/19/17 at 12:00 Lidocaine (Lidoderm) 1 patch DAILY TD Last administered on 01/27/17 10:02; Admin Dose 1 PATCH; Start 01/19/17 at 13:00 Ondansetron HCl (Zofran Inj) 4 mg Q6H PRN IV NAUSEA AND/OR VOMITING Last administered on 01/22/17 15:33; Admin Dose 4 MG; Start 01/21/17 at 08:30 Nitroglycerin (Nitroglycerin 2% Oint) 1 inch Q6 TD Last administered on 05:47; Admin Dose 1 INCH; Start 01/22/17 at 04:00 Naloxone HCl 0.2 mg 0.2 mg Q2M PRN IV RR 8 BREATHS/MIN OR LESS; Start 01/22/17 at 11:00 Linezolid (Zyvox 600mg/D5W (Pmx)) 300 ml @ 300 mls/hr Q12 IVPB Last administered on 01/27/17 10:02; Admin Dose 300 MLS/HR; Start 01/22/17 at 13:30 Heparin Sodium (Porcine) (Heparin (5000 Units/0.5 ml)) 5,000 unit BID SC Last administered on 01/27/17 10:31; Admin Dose 5,000 UNIT; Start 01/25/17 at 09:00 ADALID LEO NP Jan 27, 2017 12:37
[2017-01-27] MEDS ORDERED: VANCOMYCIN IV PER PHARMACY XX SCH (13:00)
[2017-01-27] MEDS: morphine 2 MG INJ IV PRN ×2 (13:43→22:44)
[2017-01-27] MEDS ORDERED: VANCOMYCIN 1 GM in NS 250 ML IVPB SCH (14:00)
[2017-01-27] MEDS: CEFTRIAXONE 2 GM/NS 50 ML IVPB SCH (17:23)
[2017-01-27] MEDS: ATORVASTATIN 80 MG TAB PO SCH (20:17)
[2017-01-28] VITALS (14 sets, daily range): BP systolic 127–156; BP diastolic 60–72; PULSE 69–77; RESP 17–20
[2017-01-28] MEDS: NITROGLYCERIN 2% 1 GM OINT PKT TD SCH ×4 (01:31→17:17)
[2017-01-28] MEDS: HYDROCODONE/APAP (10/325) TAB PO PRN (01:35)
[2017-01-28] MEDS: ACCU-CHEK XX SCH (01:35)
[2017-01-28] MEDS: PANTOPRAZOLE (EC) 40 MG TAB PO SCH (05:19)
[2017-01-28] MEDS: oxyCODONE (CR) 10 MG TAB [oxyCONTIN] PO SCH ×3 (05:19→20:29)
[2017-01-28] MEDS: INSULIN ASPART [NOVOLOG] 3 ML PEN SC SCH ×4 (07:55→20:34)
--- NOTE | 2017-01-28 08:06 | CONS ---
Date/Time of Note Date/Time of Note DATE: 01/28/17 TIME: 08:05 Consult Date/Type/Reason Admit Date/Time Jan 12, 2017 at 10:35 Initial Consult Date 01/12/17 Type of Consultation: cardiology Ordering Provider: SAM SEALS DO Subjective CARDIOLOGY FOLLOW UP NOTE Discussed with staff and Dr Seals rhythm was reviewed. pt remains in NSR. no AFIB. PT s/p surgery 01/22. she denies any chest pain or pressure or palpitation to me. she has mild back pain objective: General: no acute distress HEENT: NC/AT. pupils are equal. round. NECK: NO JVD. no stridor. CV: RRR. systolic murmur; no gallop or rubs. PULM: no wheezing or rhonchi. GI: SOFT, NT, ND, no rebound or guarding Extremity: trace B/L LE edema. no clubbing. neuro: awake and alert, Psych: calm and pleasant rectal: deferred Objective Vital Signs Date Time Temp Pulse Resp B/P Pulse Ox O2 Delivery O2 Flow Rate FiO2 01/28/17 07:46 98.2 80 19 127/67 98 01/27/17 07:50 2.0 01/26/17 02:36 28 Intake and Output 01/27/17 01/27/17 01/28/17 15:00 23:00 07:00 Intake Total 700 ml 600 ml 200 ml Output Total 3400 ml Balance -2700 ml 600 ml 200 ml Results/Medications Result Diagram: 01/26/17 0749 01/26/17 0749 Results 24 hrs Laboratory Tests Test 01/27/17 12:12 01/27/17 17:22 01/27/17 21:34 Bedside Glucose 134 119 128 Medications Current Medications Aspirin (Aspirin) 162 mg DAILY PO Last administered on 01/27/17 10:01; Admin Dose 162 MG; Start 01/13/17 at 09:00 Atorvastatin Calcium (Lipitor) 80 mg QHS PO Last administered on 01/27/17 20: 17; Admin Dose 80 MG; Start 01/12/17 at 21:00 Metoclopramide HCl (Reglan) 5 mg BID PO Last administered on 01/27/17 20:16; Admin Dose 5 MG; Start 01/12/17 at 21:00 Metoprolol Tartrate (Lopressor) 100 mg BID PO Last administered on 01/27/17 20 :18; Admin Dose 100 MG; Start 01/12/17 at 21:00 Pantoprazole (Protonix Tab) 40 mg DAILY@06 PO Last administered on 01/28/17 05 :19; Admin Dose 40 MG; Start 01/13/17 at 06:00 Sertraline HCl (Zoloft) 50 mg DAILY PO Last administered on 01/27/17 10:01; Admin Dose 50 MG; Start 01/13/17 at 09:00 Tolterodine Tartrate (Detrol) 2 mg BID PO Last administered on 01/27/17 20:17 ; Admin Dose 2 MG; Start 01/12/17 at 21:00 Diagnostic Test (Pha) (Accu-Chek) 1 ea 02 XX Last administered on 01/18/17 02: 21; Admin Dose 1 EA; Start 01/13/17 at 02:00 Warfarin Sodium (Coumadin) 5 mg DAILY@17 PO Last administered on 01/18/17 18: 24; Admin Dose 5 MG; Start 01/12/17 at 17:00; Status Future Hold Miscellaneous Information 1 ea NOTE XX ; Start 01/12/17 at 13:00 Glucose (Glutose) 15 gm Q15M PRN PO DECREASED GLUCOSE; Start 01/12/17 at 13:00 Glucose (Glutose) 22.5 gm Q15M PRN PO DECREASED GLUCOSE; Start 01/12/17 at 13:00 Dextrose (D50w Syringe) 25 ml Q15M PRN IV DECREASED GLUCOSE Last administered on 01/26/17 12:31; Admin Dose 25 ML; Start 01/12/17 at 13:00 Dextrose (D50w Syringe) 50 ml Q15M PRN IV DECREASED GLUCOSE; Start 01/12/17 at 13:00 Glucagon (Glucagen) 1 mg Q15M PRN IM DECREASED GLUCOSE; Start 01/12/17 at 13:00 Glucose (Glutose) 15 gm Q15M PRN BUCCAL DECREASED GLUCOSE Last administered on 01/26/17 12:12; Admin Dose 15 GM; Start 01/12/17 at 13:00 Morphine Sulfate (morphine) 2 mg Q3H PRN IV PAIN LEVEL 6-10 Last administered on 01/27/17 22:44; Admin Dose 2 MG; Start 01/14/17 at 04:00 Bisacodyl (Dulcolax Supp) 10 mg Q24H PRN [place] CONSTIPATION; Start 01/15/17 at 09: 30 Docusate Sodium (Colace) 100 mg QHS PRN PO CONSTIPATION Last administered on 08:17; Admin Dose 100 MG; Start 01/15/17 at 09:30 Lactulose (Enulose) 20 gm DAILY PRN PO CONSTIPATION Last administered on 01:45; Admin Dose 20 GM; Start 01/15/17 at 09:30 Senna (Senokot) 1 tab DAILY PO Last administered on 01/27/17 10:00; Admin Dose 1 TAB; Start 01/15/17 at 09:30 Sodium Biphosphate/ Sodium Phosphate (Fleet Enema) 133 ml DAILY PRN [place] CONSTIPATION; Start 01/15/17 at 09:30 Amlodipine Besylate (Norvasc) 10 mg DAILY PO Last administered on 01/27/17 10: 00; Admin Dose 10 MG; Start 01/16/17 at 09:00 Hydralazine HCl (Apresoline) 75 mg TID PO Last administered on 01/27/17 20:18 ; Admin Dose 75 MG; Start 01/16/17 at 09:00 Clonidine (Catapres) 0.1 mg Q6H PRN PO ELEVATED SYSTOLIC BP Last administered on 01/27/17 05:47; Admin Dose 0.1 MG; Start 01/16/17 at 01:30 Polyethylene Glycol (Miralax) 17 gm BID PO Last administered on 01/27/17 20:19 ; Admin Dose 17 GM; Start 01/16/17 at 21:00 Lubiprostone 24 mcg 24 mcg BID PO Last administered on 01/27/17 20:17; Admin Dose 24 MCG; Start 01/17/17 at 09:00 Ceftriaxone Sodium (Rocephin) 50 ml @ 100 mls/hr Q24H IVPB Last administered on 01/27/17 17:23; Admin Dose 100 MLS/HR; Start 01/17/17 at 17:00 Zolpidem Tartrate (Ambien) 5 mg HS PRN PO INSOMNIA Last administered on 22:40; Admin Dose 5 MG; Start 01/17/17 at 21:30 Acetaminophen/ Hydrocodone Bitart ([place] (10/325)) 1 tab Q4H PRN PO 4-6 PAIN Last administered on 01/28/17 01:35; Admin Dose 1 TAB; Start 01/19/17 at 10:00 Oxycodone HCl (Oxycontin) 10 mg Q8H PO Last administered on 01/28/17 05:19; Admin Dose 10 MG; Start 01/19/17 at 12:00 Lidocaine (Lidoderm) 1 patch DAILY TD Last administered on 01/27/17 10:02; Admin Dose 1 PATCH; Start 01/19/17 at 13:00 Ondansetron HCl (Zofran Inj) 4 mg Q6H PRN IV NAUSEA AND/OR VOMITING Last administered on 01/22/17 15:33; Admin Dose 4 MG; Start 01/21/17 at 08:30 Nitroglycerin (Nitroglycerin 2% Oint) 1 inch Q6 TD Last administered on 05:19; Admin Dose 1 INCH; Start 01/22/17 at 04:00 Naloxone HCl (Narcan) 0.2 mg Q2M PRN IV RR 8 BREATHS/MIN OR LESS; Start at 11:00 Heparin Sodium (Porcine) (Heparin (5000 Units/0.5 ml)) 5,000 unit BID SC Last administered on 01/27/17 20:38; Admin Dose 5,000 UNIT; Start 01/25/17 at 09:00 Assessment/Plan Chief Complaint/Hosp Course 1. Slurred speech:improved now. F/U with neurology rec. . 2. End-stage renal disease. cont HD as per renal 3. Hypertension. Continue current blood pressure regimen. cont HD. 4. History of chronic obstructive pulmonary disease. Continue medical management. 5. History of P afib.per old records. currently in NSR. coumadin in on hold for neurosurgical intervention. resume coumadin when ok with neurosurgery 6. History of T7 paraplegia. Continue physical therapy. s/p surgery 7. Anemia. defer to IM 8. Dyslipidemia. Continue statin therapy. 09. Diabetes. Continue Accu-Cheks and insulin sliding scale. [facility] and L5-S1 Osteo/Diskitis: s/p L5-S1 TLIF with ISF placement. currently is ICU. Coumadin is on hold to be resumed once ok with neurosurgery team abx as per ID rec. 11. DC planning: as per IM. Thank you for this referral I will continue to follow along with you. TAMERA BAILEY MD [facility] Problems: TAMERA BAILEY MD Jan 28, 2017 08:06
[2017-01-28] MEDS: METOCLOPRAMIDE 5 MG TAB PO SCH ×2 (08:27→20:31)
[2017-01-28] MEDS: LUBIPROSTONE 24 MCG CAP PO SCH ×2 (08:27→20:30)
[2017-01-28] MEDS: ASPIRIN 81 MG TAB PO SCH (08:27)
[2017-01-28] MEDS: AMLODIPINE 10 MG TAB PO SCH (08:28)
[2017-01-28] MEDS: TOLTERODINE 2 MG TAB PO SCH ×2 (08:28→20:32)
[2017-01-28] MEDS: SEVELAMER 800 MG TAB PO SCH ×3 (08:28→16:48)
[2017-01-28] MEDS: METOPROLOL 100 MG TAB PO SCH ×2 (08:28→20:31)
[2017-01-28] MEDS: SERTRALINE 50 MG TAB PO SCH (08:28)
[2017-01-28] MEDS: LIDOCAINE 5% PATCH TD SCH (08:29)
[2017-01-28] MEDS: POLYETHYLENE GLYCOL 17 GM PACKET PO SCH ×2 (08:29→20:32)
[2017-01-28] MEDS: HEPARIN 5,000 UNIT/0.5 ML VIAL SC SCH ×2 (08:40→20:46)
[2017-01-28] MEDS: SENNA TAB PO SCH (08:41)
[2017-01-28] MEDS: morphine 2 MG INJ IV PRN ×2 (08:47→14:28)
--- NOTE | 2017-01-28 11:14 | DS ---
DATE OF ADMISSION: 01/12/2017 DATE OF DISCHARGE: HOSPITAL COURSE: This is a 51-year-old female with a past medical history of end-stage renal disease, history of CVA, diabetes, diabetic nephropathy and neuropathy, coronary artery disease, dyslipidemia, hypertension, who presented to [facility] with slurred speech. The patient was subsequently admitted for evaluation of acute CVA. In terms of patient's slurred speech, she was seen by neurologist Dr. Hart, an MRI and CT scan were performed, which were negative for any acute stroke. The patient's slurred speech subsequently resolved with a presumed TIA. The patient during the hospital course; however, had severe back pain. Had a CT scan and MRI of the spine, which showed evidence of diskitis. She was seen by neurosurgeon, Dr. Maldonado. The patient then underwent a TLIF of L5- S1 with removal of infected disks. Following the procedure, the patient has been stable. Pain has been improved and the patient has no known complications. The patient's other medical problems include constipation, which is improved after change in her bowel regimen. The patient also had end-stage renal disease, where she was receiving dialysis during the hospital course. Other medical problems including anemia, middle bone disorder and paroxysmal atrial fibrillation have been stable. Currently, at this time, the patient is stable, in no acute distress. She will be discharged back to her longterm facility where she will resume Coumadin in 2 days' time and continue IV antibiotics for diskitis for 6 weeks total per Infectious Disease . At the time of discharge, the patient is stable. No acute distress. FINAL DIAGNOSES: 1. Diskitis of L5-S1, status post transforaminal lumbar interbody fusion with instrumented spinal fusion placement. The patient is stable. Will follow up with Neurosurgery in 1-2 weeks. Will continue antibiotics per a 6-week course. 2. Chronic back pain, improving. 3. End-stage renal disease. 4. Hypertension. 5. Paroxysmal atrial fibrillation. 6. Transient ischemic attack, resolved. 7. Anemia. 8. Mineral bone disorder. 9. Diabetes. DISCHARGE CONDITION: At the time of discharge, the patient is stable, no acute distress. DISCHARGE MEDICATIONS: See reconciliation list. Please note, I spent over 40 minutes' time preparing patient's discharge. Dictated By: Buck Seals DO /saul/josee /Document#: [id number]
--- NOTE | 2017-01-28 15:18 | CONS ---
Date/Time of Note Date/Time of Note DATE: 01/28/17 TIME: 15:17 Assessment/Plan Assessment/Plan Chief Complaint/Hosp Course SUBJECTIVE DATA: alert, feels good, no fevers ANTIMICROBIALS: Vanco, ceftriaxone. INDWELLING: The patient has right chest PermCath. PHYSICAL EXAMINATION: GENERAL: Well-developed, obese, middle-aged woman who is in no distress. HEENT: Head atraumatic, normocephalic. Sclerae anicteric. Buccal mucosa dry. NECK: Supple. CHEST: Chest rise symmetrical. Breath sounds diminished at the bases. HEART: S1, S2. ABDOMEN: Soft, bowel sounds present. ASSESSMENT: 1. Spinal discitis with osteomyelitis, status post surgical intervention on 01/22/2017. 2. End-stage renal disease, on hemodialysis. 3. Hypertension. 4. Vancomycin resistant enterococcus (VRE) urinary tract infection (UTI). 5. Anemia. 6. Diabetes. PLAN: 1. The patient remains stable. 2. Continue present care. 3. Continue antibiotics for total of six weeks. 4. Follow neurosurgical recommendations. DW Dr Seals Problems: Consultation Date/Type/Reason Admit Date/Time Jan 12, 2017 at 10:35 Initial Consult Date 01/12/17 Type of Consultation: id Referring Provider: SAM SEALS DO Exam/Review of Systems Vital Signs Vitals Vital Signs Date Time Temp Pulse Resp B/P Pulse Ox O2 Delivery O2 Flow Rate FiO2 01/28/17 12:19 70 01/28/17 11:10 98.1 20 143/64 97 01/27/17 07:50 2.0 01/26/17 02:36 28 Intake and Output 01/27/17 01/27/17 01/28/17 15:00 23:00 07:00 Intake Total 700 ml 600 ml 200 ml Output Total 3400 ml Balance -2700 ml 600 ml 200 ml Results Result Diagram: 01/26/17 0749 01/26/17 0749 Results 24 hrs Laboratory Tests Test 01/27/17 17:22 01/27/17 21:34 01/28/17 08:25 01/28/17 11:36 Bedside Glucose 119 128 76 150 Medications Medications Current Medications Aspirin (Aspirin) 162 mg DAILY PO Last administered on 01/28/17t 08:27; Admin Dose 162 MG; Start 01/13/17 at 09:00 Atorvastatin Calcium (Lipitor) 80 mg QHS PO Last administered on 01/27/17 20: 17; Admin Dose 80 MG; Start 01/12/17 at 21:00 Metoclopramide HCl (Reglan) 5 mg BID PO Last administered on 01/28/17 08:27; Admin Dose 5 MG; Start 01/12/17 at 21:00 Metoprolol Tartrate (Lopressor) 100 mg BID PO Last administered on 01/28/17 08 :28; Admin Dose 100 MG; Start 01/12/17 at 21:00 Pantoprazole (Protonix Tab) 40 mg DAILY@06 PO Last administered on 01/28/17 05 :19; Admin Dose 40 MG; Start 01/13/17 at 06:00 Sertraline HCl (Zoloft) 50 mg DAILY PO Last administered on 01/28/17 08:28; Admin Dose 50 MG; Start 01/13/17 at 09:00 Tolterodine Tartrate (Detrol) 2 mg BID PO Last administered on 01/28/17 08:28 ; Admin Dose 2 MG; Start 01/12/17 at 21:00 Diagnostic Test (Pha) (Accu-Chek) 1 ea 02 XX Last administered on 01/18/17 02: 21; Admin Dose 1 EA; Start 01/13/17 at 02:00 Warfarin Sodium (Coumadin) 5 mg DAILY@17 PO Last administered on 01/18/17 18: 24; Admin Dose 5 MG; Start 01/12/17 at 17:00; Status Future Hold Miscellaneous Information 1 ea NOTE XX ; Start 01/12/17 at 13:00 Glucose (Glutose) 15 gm Q15M PRN PO DECREASED GLUCOSE; Start 01/12/17 at 13:00 Glucose (Glutose) 22.5 gm Q15M PRN PO DECREASED GLUCOSE; Start 01/12/17 at 13:00 Dextrose (D50w Syringe) 25 ml Q15M PRN IV DECREASED GLUCOSE Last administered on 01/26/17 12:31; Admin Dose 25 ML; Start 01/12/17 at 13:00 Dextrose (D50w Syringe) 50 ml Q15M PRN IV DECREASED GLUCOSE; Start 01/12/17 at 13:00 Glucagon (Glucagen) 1 mg Q15M PRN IM DECREASED GLUCOSE; Start 01/12/17 at 13:00 Glucose (Glutose) 15 gm Q15M PRN BUCCAL DECREASED GLUCOSE Last administered on 01/26/17 12:12; Admin Dose 15 GM; Start 01/12/17 at 13:00 Morphine Sulfate (morphine) 2 mg Q3H PRN IV PAIN LEVEL 6-10 Last administered on 01/28/17 14:28; Admin Dose 2 MG; Start 01/14/17 at 04:00 Bisacodyl (Dulcolax Supp) 10 mg Q24H PRN [place] CONSTIPATION; Start 01/15/17 at 09: 30 Docusate Sodium (Colace) 100 mg QHS PRN PO CONSTIPATION Last administered on 08:17; Admin Dose 100 MG; Start 01/15/17 at 09:30 Lactulose (Enulose) 20 gm DAILY PRN PO CONSTIPATION Last administered on 01:45; Admin Dose 20 GM; Start 01/15/17 at 09:30 Senna (Senokot) 1 tab DAILY PO Last administered on 01/27/17 10:00; Admin Dose 1 TAB; Start 01/15/17 at 09:30 Sodium Biphosphate/ Sodium Phosphate (Fleet Enema) 133 ml DAILY PRN [place] CONSTIPATION; Start 01/15/17 at 09:30 Amlodipine Besylate (Norvasc) 10 mg DAILY PO Last administered on 01/28/17 08: 28; Admin Dose 10 MG; Start 01/16/17 at 09:00 Hydralazine HCl (Apresoline) 75 mg TID PO Last administered on 01/28/17 13:06 ; Admin Dose 75 MG; Start 01/16/17 at 09:00 Clonidine (Catapres) 0.1 mg Q6H PRN PO ELEVATED SYSTOLIC BP Last administered on 01/27/17 05:47; Admin Dose 0.1 MG; Start 01/16/17 at 01:30 Polyethylene Glycol (Miralax) 17 gm BID PO Last administered on 01/28/17 08:29 ; Admin Dose 17 GM; Start 01/16/17 at 21:00 Lubiprostone 24 mcg 24 mcg BID PO Last administered on 01/28/17 08:27; Admin Dose 24 MCG; Start 01/17/17 at 09:00 Ceftriaxone Sodium (Rocephin) 50 ml @ 100 mls/hr Q24H IVPB Last administered on 01/27/17 17:23; Admin Dose 100 MLS/HR; Start 01/17/17 at 17:00 Zolpidem Tartrate (Ambien) 5 mg HS PRN PO INSOMNIA Last administered on 22:40; Admin Dose 5 MG; Start 01/17/17 at 21:30 Acetaminophen/ Hydrocodone Bitart ([place] (10/325)) 1 tab Q4H PRN PO 4-6 PAIN Last administered on 01/28/17 01:35; Admin Dose 1 TAB; Start 01/19/17 at 10:00 Oxycodone HCl (Oxycontin) 10 mg Q8H PO Last administered on 01/28/17 11:52; Admin Dose 10 MG; Start 01/19/17 at 12:00 Lidocaine (Lidoderm) 1 patch DAILY TD Last administered on 01/28/17 08:29; Admin Dose 1 PATCH; Start 01/19/17 at 13:00 Ondansetron HCl (Zofran Inj) 4 mg Q6H PRN IV NAUSEA AND/OR VOMITING Last administered on 01/22/17 15:33; Admin Dose 4 MG; Start 01/21/17 at 08:30 Nitroglycerin (Nitroglycerin 2% Oint) 1 inch Q6 TD Last administered on 11:53; Admin Dose 1 INCH; Start 01/22/17 at 04:00 Naloxone HCl (Narcan) 0.2 mg Q2M PRN IV RR 8 BREATHS/MIN OR LESS; Start at 11:00 Heparin Sodium (Porcine) (Heparin (5000 Units/0.5 ml)) 5,000 unit BID SC Last administered on 01/28/17 08:40; Admin Dose 5,000 UNIT; Start 01/25/17 at 09:00 Miscellaneous Information (*Rx Drug Level Order Reminder*) VANCO RANDOM W/ AM LABS... ONCE ONCE XX ; Start 01/29/17 at 05:00; Stop 01/29/17 at 05:01 ADALID LEO NP Jan 28, 2017 15:18
[2017-01-28] MEDS: CEFTRIAXONE 2 GM/NS 50 ML IVPB SCH (16:47)
[2017-01-28] MEDS: ATORVASTATIN 80 MG TAB PO SCH (20:31)
[2017-01-29] VITALS (18 sets, daily range): BP systolic 120–157; BP diastolic 60–76; PULSE 68–73; RESP 19–20
[2017-01-29] MEDS: NITROGLYCERIN 2% 1 GM OINT PKT TD SCH ×4 (00:54→17:43)
[2017-01-29] MEDS: morphine 2 MG INJ IV PRN ×3 (01:17→18:33)
[2017-01-29] MEDS: ACCU-CHEK XX SCH (02:00)
[2017-01-29] MEDS: oxyCODONE (CR) 10 MG TAB [oxyCONTIN] PO SCH ×3 (05:00→21:09)
[2017-01-29] MEDS: PANTOPRAZOLE (EC) 40 MG TAB PO SCH (06:33)
[2017-01-29] MEDS: INSULIN ASPART [NOVOLOG] 3 ML PEN SC SCH ×4 (07:55→21:00)
[2017-01-29] MEDS: SEVELAMER 800 MG TAB PO SCH ×3 (08:45→17:42)
[2017-01-29] MEDS: LUBIPROSTONE 24 MCG CAP PO SCH ×2 (08:45→21:09)
[2017-01-29] MEDS: ASPIRIN 81 MG TAB PO SCH (08:47)
[2017-01-29] MEDS: TOLTERODINE 2 MG TAB PO SCH ×2 (08:47→21:06)
[2017-01-29] MEDS: SENNA TAB PO SCH (08:48)
[2017-01-29] MEDS: AMLODIPINE 10 MG TAB PO SCH (08:48)
[2017-01-29] MEDS: SERTRALINE 50 MG TAB PO SCH (08:48)
[2017-01-29] MEDS: POLYETHYLENE GLYCOL 17 GM PACKET PO SCH ×2 (08:48→21:00)
[2017-01-29] MEDS: METOCLOPRAMIDE 5 MG TAB PO SCH ×2 (08:48→21:08)
[2017-01-29] MEDS: METOPROLOL 100 MG TAB PO SCH ×2 (08:48→21:09)
[2017-01-29] MEDS: LIDOCAINE 5% PATCH TD SCH ×3 (08:49→21:11)
[2017-01-29] MEDS: HEPARIN 5,000 UNIT/0.5 ML VIAL SC SCH ×2 (08:52→21:19)
--- NOTE | 2017-01-29 09:42 | PN ---
DATE: 01/29/2017 SUBJECTIVE DATA: The patient is stable. No events overnight. No fevers, chills, nausea, vomiting. No shortness of breath. No other events noted. OBJECTIVE DATA: VITAL SIGNS: Blood pressure 153/76, pulse 68, respirations 20. HEENT: Head is normocephalic. NECK: Supple. HEART: Regular rate. LUNGS: Diminished breath sounds at the base. ABDOMEN: Soft, nontender to palpation. No guarding. EXTREMITIES: Negative for clubbing, cyanosis. No edema. DERMATOLOGIC: Clean. No rashes. MUSCULOSKELETAL: No joint effusion. NEUROLOGIC: No change in exam. MEDICATIONS: Reviewed. LABORATORY AND DIAGNOSTIC DATA: Been reviewed. No new labs. ASSESSMENT AND PLAN: 1. Diskitis, L5-S1. Patient status post transforaminal lumbar interbody fusion (TLIF) with ISF placement, currently stable. Continue current antibiotic regimen for 6 weeks. Follow up with Neurosurgery for recommendations. 2. Chronic back pain, improving. Continue current pain regimen. 3. End-stage renal disease. Continue dialysis Wednesday, , Wednesday. 4. Hypertension. Continue current blood pressure regimen. 5. Paroxysmal atrial fibrillation. The patient will resume Coumadin. Follow up with Cardiology. 6. Transient ischemic attack (TIA). Continue current medical management. 7. Anemia. Monitor hemoglobin and hematocrit levels. 8. Mineral bone disorder. Monitor calcium and phosphorus levels. 9. Gastrointestinal (GI) and deep venous thrombosis (DVT) prophylaxis. 10. Diabetes. Continue Accu-Cheks and insulin sliding scale. Dictated By: Buck Seals DO /saul/ty /Document#: [id number]
[2017-01-29] MEDS: VANCOMYCIN 1 GM in NS 250 ML IVPB SCH (11:00)
--- NOTE | 2017-01-29 15:12 | CONS ---
Date/Time of Note Date/Time of Note DATE: 01/29/17 TIME: 15:11 Assessment/Plan Assessment/Plan Chief Complaint/Hosp Course SUBJECTIVE DATA: Status post hemodialysis, alert, feels good, no fevers ANTIMICROBIALS: Vanco, ceftriaxone. INDWELLING: The patient has right chest PermCath. PHYSICAL EXAMINATION: GENERAL: Well-developed, obese, middle-aged woman who is in no distress. HEENT: Head atraumatic, normocephalic. Sclerae anicteric. Buccal mucosa dry. NECK: Supple. CHEST: Chest rise symmetrical. Breath sounds diminished at the bases. HEART: S1, S2. ABDOMEN: Soft, bowel sounds present. ASSESSMENT: 1. Spinal discitis with osteomyelitis, status post surgical intervention on 01/22/2017. 2. End-stage renal disease, on hemodialysis. 3. Hypertension. 4. Vancomycin resistant enterococcus (VRE) urinary tract infection (UTI). 5. Anemia. 6. Diabetes. PLAN: 1. The patient remains stable. 2. Continue present care. 3. Continue antibiotics for total of six weeks. 4. Follow neurosurgical recommendations. [facility] staff/pt Problems: Consultation Date/Type/Reason Admit Date/Time Jan 12, 2017 at 10:35 Initial Consult Date 01/12/17 Type of Consultation: id Referring Provider: SAM CANTU DO Exam/Review of Systems Vital Signs Vitals Vital Signs Date Time Temp Pulse Resp B/P Pulse Ox O2 Delivery O2 Flow Rate FiO2 01/29/17 12:50 69 01/29/17 11:26 98.2 20 134/70 95 01/27/17 07:50 2.0 01/26/17 02:36 28 Intake and Output 01/28/17 01/28/17 01/29/17 15:00 23:00 07:00 Intake Total 300 ml 850 ml 300 ml Balance 300 ml 850 ml 300 ml Results Result Diagram: 01/26/17 0749 01/26/17 0749 Results 24 hrs Laboratory Tests Test 01/28/17 16:46 01/28/17 20:34 01/29/17 07:25 01/29/17 08:43 Bedside Glucose 88 129 91 Random Vancomycin Level 12.8 Test 01/29/17 13:55 Bedside Glucose 141 Medications Medications Current Medications Aspirin (Aspirin) 162 mg DAILY PO Last administered on 01/29/17t 08:47; Admin Dose 162 MG; Start 01/13/17 at 09:00 Atorvastatin Calcium (Lipitor) 80 mg QHS PO Last administered on 01/28/17 20: 31; Admin Dose 80 MG; Start 01/12/17 at 21:00 Metoclopramide HCl (Reglan) 5 mg BID PO Last administered on 01/29/17 08:48; Admin Dose 5 MG; Start 01/12/17 at 21:00 Metoprolol Tartrate (Lopressor) 100 mg BID PO Last administered on 01/29/17 08 :48; Admin Dose 100 MG; Start 01/12/17 at 21:00 Pantoprazole (Protonix Tab) 40 mg DAILY@06 PO Last administered on 01/29/17 06 :33; Admin Dose 40 MG; Start 01/13/17 at 06:00 Sertraline HCl (Zoloft) 50 mg DAILY PO Last administered on 01/29/17 08:48; Admin Dose 50 MG; Start 01/13/17 at 09:00 Tolterodine Tartrate (Detrol) 2 mg BID PO Last administered on 01/29/17 08:47 ; Admin Dose 2 MG; Start 01/12/17 at 21:00 Diagnostic Test (Pha) (Accu-Chek) 1 ea 02 XX Last administered on 01/18/17 02: 21; Admin Dose 1 EA; Start 01/13/17 at 02:00 Warfarin Sodium (Coumadin) 5 mg DAILY@17 PO Last administered on 01/18/17 18: 24; Admin Dose 5 MG; Start 01/12/17 at 17:00; Status Future hold Miscellaneous Information 1 ea NOTE XX ; Start 01/12/17 at 13:00 Glucose (Glutose) 15 gm Q15M PRN PO DECREASED GLUCOSE; Start 01/12/17 at 13:00 Glucose (Glutose) 22.5 gm Q15M PRN PO DECREASED GLUCOSE; Start 01/12/17 at 13:00 Dextrose (D50w Syringe) 25 ml Q15M PRN IV DECREASED GLUCOSE Last administered on 01/26/17 12:31; Admin Dose 25 ML; Start 01/12/17 at 13:00 Dextrose (D50w Syringe) 50 ml Q15M PRN IV DECREASED GLUCOSE; Start 01/12/17 at 13:00 Glucagon (Glucagen) 1 mg Q15M PRN IM DECREASED GLUCOSE; Start 01/12/17 at 13:00 Glucose (Glutose) 15 gm Q15M PRN BUCCAL DECREASED GLUCOSE Last administered on 01/26/17 12:12; Admin Dose 15 GM; Start 01/12/17 at 13:00 Morphine Sulfate (morphine) 2 mg Q3H PRN IV PAIN LEVEL 6-10 Last administered on 01/29/17 11:56; Admin Dose 2 MG; Start 01/14/17 at 04:00 Bisacodyl (Dulcolax Supp) 10 mg Q24H PRN [place] CONSTIPATION; Start 01/15/17 at 09: 30 Docusate Sodium (Colace) 100 mg QHS PRN PO CONSTIPATION Last administered on 08:17; Admin Dose 100 MG; Start 01/15/17 at 09:30 Lactulose (Enulose) 20 gm DAILY PRN PO CONSTIPATION Last administered on 01:45; Admin Dose 20 GM; Start 01/15/17 at 09:30 Senna (Senokot) 1 tab DAILY PO Last administered on 01/29/17 08:48; Admin Dose 1 TAB; Start 01/15/17 at 09:30 Sodium Biphosphate/ Sodium Phosphate (Fleet Enema) 133 ml DAILY PRN [place] CONSTIPATION; Start 01/15/17 at 09:30 Amlodipine Besylate (Norvasc) 10 mg DAILY PO Last administered on 01/29/17 08: 48; Admin Dose 10 MG; Start 01/16/17 at 09:00 Hydralazine HCl (Apresoline) 75 mg TID PO Last administered on 01/29/17 13:56 ; Admin Dose 75 MG; Start 01/16/17 at 09:00 Clonidine (Catapres) 0.1 mg Q6H PRN PO ELEVATED SYSTOLIC BP Last administered on 01/27/17 05:47; Admin Dose 0.1 MG; Start 01/16/17 at 01:30 Polyethylene Glycol (Miralax) 17 gm BID PO Last administered on 01/29/17 08:48 ; Admin Dose 17 GM; Start 01/16/17 at 21:00 Lubiprostone 24 mcg 24 mcg BID PO Last administered on 01/29/17 08:45; Admin Dose 24 MCG; Start 01/17/17 at 09:00 Ceftriaxone Sodium (Rocephin) 50 ml @ 100 mls/hr Q24H IVPB Last administered on 01/28/17 16:47; Admin Dose 100 MLS/HR; Start 01/17/17 at 17:00 Zolpidem Tartrate (Ambien) 5 mg HS PRN PO INSOMNIA Last administered on 22:40; Admin Dose 5 MG; Start 01/17/17 at 21:30 Acetaminophen/ Hydrocodone Bitart ([place] (10/325)) 1 tab Q4H PRN PO 4-6 PAIN Last administered on 01/28/17 01:35; Admin Dose 1 TAB; Start 01/19/17 at 10:00 Oxycodone HCl (Oxycontin) 10 mg Q8H PO Last administered on 01/29/17 13:41; Admin Dose 10 MG; Start 01/19/17 at 12:00 Ondansetron HCl (Zofran Inj) 4 mg Q6H PRN IV NAUSEA AND/OR VOMITING Last administered on 01/22/17 15:33; Admin Dose 4 MG; Start 01/21/17 at 08:30 Nitroglycerin (Nitroglycerin 2% Oint) 1 inch Q6 TD Last administered on 06:34; Admin Dose 1 INCH; Start 01/22/17 at 04:00 Naloxone HCl (Narcan) 0.2 mg Q2M PRN IV RR 8 BREATHS/MIN OR LESS; Start at 11:00 Heparin Sodium (Porcine) 5000 unit 5,000 unit BID SC Last administered on 08:52; Admin Dose 5,000 UNIT; Start 01/25/17 at 09:00 Vancomycin HCl (Vancocin) 250 ml @ 125 mls/hr Q96H IVPB Last administered on 11:00; Admin Dose 125 MLS/HR; Start 01/29/17 at 10:00 Lidocaine (Lidoderm) 1 patch QPM TD ; Start 01/29/17 at 21:00 ADALID LEO NP Jan 29, 2017 15:12
--- NOTE | 2017-01-29 17:31 | CONS ---
Date/Time of Note Date/Time of Note DATE: 01/29/17 TIME: 17:30 Consult Date/Type/Reason Admit Date/Time Jan 12, 2017 at 10:35 Initial Consult Date 01/12/17 Type of Consultation: CARDIOLOGY Ordering Provider: SAM CANTU DO Subjective CARDIOLOGY FOLLOW UP NOTE Discussed with staff and rhythm was reviewed. pt remains in NSR. no AFIB. PT s/p surgery 01/22. she denies any chest pain or pressure or palpitation to me. she has minimal back pain objective: General: no acute distress HEENT: NC/AT. pupils are equal. round. NECK: NO JVD. no stridor. CV: RRR. systolic murmur; no gallop or rubs. PULM: no wheezing or rhonchi. GI: SOFT, NT, ND, no rebound or guarding Extremity: trace B/L LE edema. no clubbing. neuro: awake and alert, Psych: calm and pleasant rectal: deferred Objective Vital Signs Date Time Temp Pulse Resp B/P Pulse Ox O2 Delivery O2 Flow Rate FiO2 01/29/17 16:31 70 01/29/17 15:40 98.8 20 147/72 95 01/27/17 07:50 2.0 01/26/17 02:36 28 Intake and Output 01/28/17 01/28/17 01/29/17 15:00 23:00 07:00 Intake Total 300 ml 850 ml 300 ml Balance 300 ml 850 ml 300 ml Results/Medications Result Diagram: 01/26/17 0749 01/26/17 0749 Results 24 hrs Laboratory Tests Test 01/28/17 20:34 01/29/17 07:25 01/29/17 08:43 01/29/17 13:55 Bedside Glucose 129 91 141 Random Vancomycin Level 12.8 Medications Current Medications Aspirin (Aspirin) 162 mg DAILY PO Last administered on 01/29/17 08:47; Admin Dose 162 MG; Start 01/13/17 at 09:00 Atorvastatin Calcium (Lipitor) 80 mg QHS PO Last administered on 01/28/17 20: 31; Admin Dose 80 MG; Start 01/12/17 at 21:00 Metoclopramide HCl (Reglan) 5 mg BID PO Last administered on 01/29/17 08:48; Admin Dose 5 MG; Start 01/12/17 at 21:00 Metoprolol Tartrate (Lopressor) 100 mg BID PO Last administered on 01/29/17 08 :48; Admin Dose 100 MG; Start 01/12/17 at 21:00 Pantoprazole (Protonix Tab) 40 mg DAILY@06 PO Last administered on 01/29/17 06 :33; Admin Dose 40 MG; Start 01/13/17 at 06:00 Sertraline HCl (Zoloft) 50 mg DAILY PO Last administered on 01/29/17 08:48; Admin Dose 50 MG; Start 01/13/17 at 09:00 Tolterodine Tartrate (Detrol) 2 mg BID PO Last administered on 01/29/17 08:47 ; Admin Dose 2 MG; Start 01/12/17 at 21:00 Diagnostic Test (Pha) (Accu-Chek) 1 ea 02 XX Last administered on 01/18/17 02: 21; Admin Dose 1 EA; Start 01/13/17 at 02:00 Warfarin Sodium (Coumadin) 5 mg DAILY@17 PO Last administered on 01/18/17 18: 24; Admin Dose 5 MG; Start 01/12/17 at 17:00; Status Future hold Miscellaneous Information 1 ea NOTE XX ; Start 01/12/17 at 13:00 Glucose (Glutose) 15 gm Q15M PRN PO DECREASED GLUCOSE; Start 01/12/17 at 13:00 Glucose (Glutose) 22.5 gm Q15M PRN PO DECREASED GLUCOSE; Start 01/12/17 at 13:00 Dextrose (D50w Syringe) 25 ml Q15M PRN IV DECREASED GLUCOSE Last administered on 01/26/17 12:31; Admin Dose 25 ML; Start 01/12/17 at 13:00 Dextrose (D50w Syringe) 50 ml Q15M PRN IV DECREASED GLUCOSE; Start 01/12/17 at 13:00 Glucagon (Glucagen) 1 mg Q15M PRN IM DECREASED GLUCOSE; Start 01/12/17 at 13:00 Glucose (Glutose) 15 gm Q15M PRN BUCCAL DECREASED GLUCOSE Last administered on 01/26/17 12:12; Admin Dose 15 GM; Start 01/12/17 at 13:00 Morphine Sulfate (morphine) 2 mg Q3H PRN IV PAIN LEVEL 6-10 Last administered on 01/29/17 11:56; Admin Dose 2 MG; Start 01/14/17 at 04:00 Bisacodyl (Dulcolax Supp) 10 mg Q24H PRN [place] CONSTIPATION; Start 01/15/17 at 09: 30 Docusate Sodium (Colace) 100 mg QHS PRN PO CONSTIPATION Last administered on 08:17; Admin Dose 100 MG; Start 01/15/17 at 09:30 Lactulose (Enulose) 20 gm DAILY PRN PO CONSTIPATION Last administered on 01:45; Admin Dose 20 GM; Start 01/15/17 at 09:30 Senna (Senokot) 1 tab DAILY PO Last administered on 01/29/17 08:48; Admin Dose 1 TAB; Start 01/15/17 at 09:30 Sodium Biphosphate/ Sodium Phosphate (Fleet Enema) 133 ml DAILY PRN [place] CONSTIPATION; Start 01/15/17 at 09:30 Amlodipine Besylate (Norvasc) 10 mg DAILY PO Last administered on 01/29/17 08: 48; Admin Dose 10 MG; Start 01/16/17 at 09:00 Hydralazine HCl (Apresoline) 75 mg TID PO Last administered on 01/29/17 13:56 ; Admin Dose 75 MG; Start 01/16/17 at 09:00 Clonidine (Catapres) 0.1 mg Q6H PRN PO ELEVATED SYSTOLIC BP Last administered on 01/27/17 05:47; Admin Dose 0.1 MG; Start 01/16/17 at 01:30 Polyethylene Glycol (Miralax) 17 gm BID PO Last administered on 01/29/17 08:48 ; Admin Dose 17 GM; Start 01/16/17 at 21:00 Lubiprostone 24 mcg 24 mcg BID PO Last administered on 01/29/17 08:45; Admin Dose 24 MCG; Start 01/17/17 at 09:00 Ceftriaxone Sodium (Rocephin) 50 ml @ 100 mls/hr Q24H IVPB Last administered on 01/28/17 16:47; Admin Dose 100 MLS/HR; Start 01/17/17 at 17:00 Zolpidem Tartrate (Ambien) 5 mg HS PRN PO INSOMNIA Last administered on 22:40; Admin Dose 5 MG; Start 01/17/17 at 21:30 Acetaminophen/ Hydrocodone Bitart ([place] (10)) 1 tab Q4H PRN PO 4-6 PAIN Last administered on 01/28/17 01:35; Admin Dose 1 TAB; Start 01/19/17 at 10:00 Oxycodone HCl (Oxycontin) 10 mg Q8H PO Last administered on 01/29/17 13:41; Admin Dose 10 MG; Start 01/19/17 at 12:00 Ondansetron HCl (Zofran Inj) 4 mg Q6H PRN IV NAUSEA AND/OR VOMITING Last administered on 01/22/17 15:33; Admin Dose 4 MG; Start 01/21/17 at 08:30 Nitroglycerin (Nitroglycerin 2% Oint) 1 inch Q6 TD Last administered on 06:34; Admin Dose 1 INCH; Start 01/22/17 at 04:00 Naloxone HCl (Narcan) 0.2 mg Q2M PRN IV RR 8 BREATHS/MIN OR LESS; Start at 11:00 Heparin Sodium (Porcine) 5000 unit 5,000 unit BID SC Last administered on 08:52; Admin Dose 5,000 UNIT; Start 01/25/17 at 09:00 Vancomycin HCl (Vancocin) 250 ml @ 125 mls/hr Q96H IVPB Last administered on 11:00; Admin Dose 125 MLS/HR; Start 01/29/17 at 10:00 Lidocaine (Lidoderm) 1 patch QPM TD ; Start 01/29/17 at 21:00 Assessment/Plan Chief Complaint/Hosp Course 1. Slurred speech:improved now. F/U with neurology rec. . 2. End-stage renal disease. cont HD as per renal 3. Hypertension. Continue current blood pressure regimen. cont HD. 4. History of chronic obstructive pulmonary disease. Continue medical management. 5. History of P afib.per old records. currently in NSR. coumadin in on hold for neurosurgical intervention. resume coumadin when ok with neurosurgery 6. History of T7 paraplegia. Continue physical therapy. s/p surgery 7. Anemia. defer to IM 8. Dyslipidemia. Continue statin therapy. 09. Diabetes. Continue Accu-Cheks and insulin sliding scale. 10. Mech LBP with Radi. and L5-S1 Osteo/Diskitis: s/p L5-S1 TLIF with ISF placement. currently is ICU. Coumadin to be adjusted to goal INR 2-3 11. DC planning: as per IM. Thank you for this referral I will continue to follow along with you. TAMERA BAILEY MD [facility] Problems: TAMERA BAILEY MD Jan 29, 2017 17:31
[2017-01-29] MEDS: WARFARIN 5 MG TAB PO SCH (17:42)
[2017-01-29] MEDS: CEFTRIAXONE 2 GM/NS 50 ML IVPB SCH (17:42)
[2017-01-29] MEDS: ATORVASTATIN 80 MG TAB PO SCH (21:09)
[2017-01-30] VITALS (11 sets, daily range): BP systolic 143–168; BP diastolic 67–78; PULSE 66–79; RESP 16–19
[2017-01-30] MEDS: ACCU-CHEK XX SCH (02:00)
[2017-01-30] MEDS: NITROGLYCERIN 2% 1 GM OINT PKT TD SCH ×4 (06:00→17:02)
[2017-01-30] MEDS: PANTOPRAZOLE (EC) 40 MG TAB PO SCH (06:08)
[2017-01-30] MEDS: oxyCODONE (CR) 10 MG TAB [oxyCONTIN] PO SCH ×3 (06:09→20:43)
[2017-01-30 07:46] LABS: BASOPHIL # 0.1 10^3/ul (0.0-0.1); BASOPHILS % 0.8 % (0.0-2.0); EOSINOPHILS # 0.5 10^3/ul (0.0-0.5); EOSINOPHILS % 6.3 % (0.0-7.0); HEMATOCRIT 29.2 % (37.0-47.0); LYMPHOCYTES # 2.3 10^3/ul (0.8-2.9); LYMPHOCYTES % 29.2 % (15.0-51.0); MEAN CORPUSCULAR HEMOGLOBIN 29.3 pg (29.0-33.0); MEAN CORPUSCULAR HGB CONC 30.8 g/dl (32.0-37.0); MEAN CORPUSCULAR VOLUME 95.1 fl (82.0-101.0); MEAN PLATELET VOLUME 7.9 fl (7.4-10.4); MONOCYTE # 0.7 10^3/ul (0.3-0.9); MONOCYTES % 8.6 % (0.0-11.0); NEUTROPHIL # 4.4 10^3/ul (1.6-7.5); NEUTROPHILS % 54.8 % (39.0-77.0); PLATELET COUNT 293 10^3/UL (140-415); RED BLOOD COUNT 3.07 10^6/ul (4.20-5.40); RED CELL DISTRIBUTION WIDTH 14.7 % (11.5-14.5)
[2017-01-30] MEDS: INSULIN ASPART [NOVOLOG] 3 ML PEN SC SCH ×4 (07:55→21:00)
[2017-01-30 08:05] LABS: INR 1.02; PROTIME 13.4 Sec (12.2-14.2)
[2017-01-30 08:06] LABS: CALCIUM 8.6 mg/dl (8.4-10.2); CREATININE 2.21 mg/dl (0.44-1.00); MAGNESIUM 1.8 mg/dl (1.7-2.5); PHOSPHORUS 3.7 mg/dl (2.5-4.9); POTASSIUM 3.9 mmol/L (3.5-5.1)
[2017-01-30] MEDS: SEVELAMER 800 MG TAB PO SCH ×3 (08:06→17:01)
[2017-01-30] MEDS: LUBIPROSTONE 24 MCG CAP PO SCH ×2 (08:06→20:45)
[2017-01-30] MEDS: SENNA TAB PO SCH (08:06)
[2017-01-30] MEDS: ASPIRIN 81 MG TAB PO SCH (08:07)
[2017-01-30] MEDS: TOLTERODINE 2 MG TAB PO SCH ×2 (08:07→20:47)
[2017-01-30] MEDS: SERTRALINE 50 MG TAB PO SCH (08:07)
[2017-01-30] MEDS: METOCLOPRAMIDE 5 MG TAB PO SCH ×2 (08:07→21:00)
[2017-01-30] MEDS: POLYETHYLENE GLYCOL 17 GM PACKET PO SCH ×2 (08:08→21:00)
[2017-01-30] MEDS: AMLODIPINE 10 MG TAB PO SCH (08:08)
[2017-01-30] MEDS: METOPROLOL 100 MG TAB PO SCH ×2 (08:08→20:47)
[2017-01-30] MEDS: HEPARIN 5,000 UNIT/0.5 ML VIAL SC SCH ×2 (08:26→20:44)
--- NOTE | 2017-01-30 09:12 | PN ---
DATE: 01/30/2017 SUBJECTIVE DATA: Patient is stable. Had hemodialysis yesterday, tolerated well. OBJECTIVE DATA: VITAL SIGNS: Blood pressure 168/78, temperature 98.2, pulse 73, respirations 17. HEENT: Head is normocephalic. NECK: Supple. HEART: Regular rate. LUNGS: Diminished breath sounds at the base. ABDOMEN: Soft, nontender to palpation. No rebound or guarding. EXTREMITIES: Negative for clubbing, cyanosis. No edema. DERMATOLOGIC: No rashes. MUSCULOSKELETAL: No joint effusion. NEUROLOGIC: No change in exam. MEDICATIONS: Reviewed. LABORATORY AND DIAGNOSTIC DATA: Shows a white count 8.0, hemoglobin 9.0, hematocrit 29.2, platelet count is 293. Sodium 134, BUN 13, creatinine 2.21. INR is 1.02. ASSESSMENT AND PLAN: 1. Discitis L5, S1. The patient is status post transforaminal lumbar interbody fusion and ISF placement. The patient is currently stable. Radiculopathy symptoms have improved. Will continue current treatment plan. Continue IV antibiotics for six weeks. Follow up with Neurosurgery. 2. Chronic back pain, improving. Continue current medical management. 3. End-stage renal disease. The patient had hemodialysis yesterday, tolerated well. Plan for dialysis tomorrow. 4. Hypertension. Continue current blood pressure regimen. 5. Paroxysmal atrial fibrillation. The patient is currently on Coumadin. Follow up INR. Continue medical management. 6. History of transient ischemic attack. Continue current treatment plan. 7. Anemia. Monitor H and H levels. 8. Mineral bone disorder. Monitor calcium and phosphorus levels. 9. Diabetes. Continue Accu-Cheks and sliding scale. 10. Gastrointestinal and deep venous thrombosis prophylaxis. Dictated By: Buck Seals DO /saul/yandy /Document#: [id number]
--- NOTE | 2017-01-30 14:38 | CONS ---
Date/Time of Note Date/Time of Note DATE: 01/30/17 TIME: 14:38 Assessment/Plan Assessment/Plan Chief Complaint/Hosp Course SUBJECTIVE DATA: alert, feels good, no fevers ANTIMICROBIALS: Vanco, ceftriaxone. INDWELLING: The patient has right chest PermCath. PHYSICAL EXAMINATION: GENERAL: Well-developed, obese, middle-aged woman who is in no distress. HEENT: Head atraumatic, normocephalic. Sclerae anicteric. Buccal mucosa dry. NECK: Supple. CHEST: Chest rise symmetrical. Breath sounds diminished at the bases. HEART: S1, S2. ABDOMEN: Soft, bowel sounds present. ASSESSMENT: 1. Spinal discitis with osteomyelitis, status post surgical intervention on 01/22/2017. 2. End-stage renal disease, on hemodialysis. 3. Hypertension. 4. Vancomycin resistant enterococcus (VRE) urinary tract infection (UTI). 5. Anemia. 6. Diabetes. PLAN: 1. The patient remains stable. 2. Continue present care. 3. Continue antibiotics for total of six weeks. 4. Follow neurosurgical recommendations. [facility] staff/pt Problems: Consultation Date/Type/Reason Admit Date/Time Jan 12, 2017 at 10:35 Initial Consult Date 01/12/17 Type of Consultation: id Referring Provider: SAM CANTU DO Exam/Review of Systems Vital Signs Vitals Vital Signs Date Time Temp Pulse Resp B/P Pulse Ox O2 Delivery O2 Flow Rate FiO2 01/30/17 12:26 70 01/30/17 11:38 98.7 18 145/68 96 01/27/17 07:50 2.0 Intake and Output 01/29/17 01/29/17 01/30/17 15:00 23:00 07:00 Intake Total 300 ml 960 ml 700 ml Output Total 3300 ml Balance -3000 ml 960 ml 700 ml Results Result Diagram: 01/30/1771601/30/1717 Results 24 hrs Laboratory Tests Test 01/29/17 17:41 01/29/17 20:43 01/30/17 07:17 01/30/17 08:00 Bedside Glucose 133 118 81 White Blood Count 8.0 Red Blood Count 3.07 L Hemoglobin 9.0 L Hematocrit 29.2 L Mean Corpuscular Volume 95.1 Mean Corpuscular Hemoglobin 29.3 Mean Corpuscular Hemoglobin Concent 30.8 L Red Cell Distribution Width 14.7 H Platelet Count 293 Mean Platelet Volume 7.9 Neutrophils % 54.8 Lymphocytes % 29.2 Monocytes % 8.6 Eosinophils % 6.3 Basophils % 0.8 Nucleated Red Blood Cells % 0.0 Neutrophils # 4.4 Lymphocytes # 2.3 Monocytes # 0.7 Eosinophils # 0.5 Basophils # 0.1 Nucleated Red Blood Cells # 0.0 Prothrombin Time 13.4 Prothrombin Time Ratio 1.0 INR International Normalized Ratio 1.02 Sodium Level 134 L Potassium Level 3.9 Chloride Level 100 Carbon Dioxide Level 30 Anion Gap 8 Blood Urea Nitrogen 13 Creatinine 2.21 H Glucose Level 81 Calcium Level 8.6 Phosphorus Level 3.7 Magnesium Level 1.8 Test 01/30/17 11:53 Bedside Glucose 183 Medications Medications Current Medications Aspirin (Aspirin) 162 mg DAILY PO Last administered on 01/30/17 08:07; Admin Dose 162 MG; Start 01/13/17 at 09:00 Atorvastatin Calcium (Lipitor) 80 mg QHS PO Last administered on 01/29/17 21: 09; Admin Dose 80 MG; Start 01/12/17 at 21:00 Metoclopramide HCl (Reglan) 5 mg BID PO Last administered on 01/30/17 08:07; Admin Dose 5 MG; Start 01/12/17 at 21:00 Metoprolol Tartrate (Lopressor) 100 mg BID PO Last administered on 01/30/17 08 :08; Admin Dose 100 MG; Start 01/12/17 at 21:00 Pantoprazole (Protonix Tab) 40 mg DAILY@06 PO Last administered on 01/30/17 06 :08; Admin Dose 40 MG; Start 01/13/17 at 06:00 Sertraline HCl (Zoloft) 50 mg DAILY PO Last administered on 01/30/17 08:07; Admin Dose 50 MG; Start 01/13/17 at 09:00 Tolterodine Tartrate (Detrol) 2 mg BID PO Last administered on 01/30/17 08:07 ; Admin Dose 2 MG; Start 01/12/17 at 21:00 Diagnostic Test (Pha) (Accu-Chek) 1 ea 02 XX Last administered on 01/18/17 02: 21; Admin Dose 1 EA; Start 01/13/17 at 02:00 Warfarin Sodium (Coumadin) 5 mg DAILY@17 PO Last administered on 01/29/17 17: 42; Admin Dose 5 MG; Start 01/12/17 at 17:00; Status Future hold Miscellaneous Information 1 ea NOTE XX ; Start 01/12/17 at 13:00 Glucose (Glutose) 15 gm Q15M PRN PO DECREASED GLUCOSE; Start 01/12/17 at 13:00 Glucose (Glutose) 22.5 gm Q15M PRN PO DECREASED GLUCOSE; Start 01/12/17 at 13:00 Dextrose (D50w Syringe) 25 ml Q15M PRN IV DECREASED GLUCOSE Last administered on 01/26/17 12:31; Admin Dose 25 ML; Start 01/12/17 at 13:00 Dextrose (D50w Syringe) 50 ml Q15M PRN IV DECREASED GLUCOSE; Start 01/12/17 at 13:00 Glucagon (Glucagen) 1 mg Q15M PRN IM DECREASED GLUCOSE; Start 01/12/17 at 13:00 Glucose (Glutose) 15 gm Q15M PRN BUCCAL DECREASED GLUCOSE Last administered on 01/26/17 12:12; Admin Dose 15 GM; Start 01/12/17 at 13:00 Morphine Sulfate (morphine) 2 mg Q3H PRN IV PAIN LEVEL 6-10 Last administered on 01/29/17 18:33; Admin Dose 2 MG; Start 01/14/17 at 04:00 Bisacodyl (Dulcolax Supp) 10 mg Q24H PRN [place] CONSTIPATION; Start 01/15/17 at 09: 30 Docusate Sodium (Colace) 100 mg QHS PRN PO CONSTIPATION Last administered on 08:17; Admin Dose 100 MG; Start 01/15/17 at 09:30 Lactulose (Enulose) 20 gm DAILY PRN PO CONSTIPATION Last administered on 01:45; Admin Dose 20 GM; Start 01/15/17 at 09:30 Senna (Senokot) 1 tab DAILY PO Last administered on 01/30/17 08:06; Admin Dose 1 TAB; Start 01/15/17 at 09:30 Sodium Biphosphate/ Sodium Phosphate (Fleet Enema) 133 ml DAILY PRN [place] CONSTIPATION; Start 01/15/17 at 09:30 Amlodipine Besylate (Norvasc) 10 mg DAILY PO Last administered on 01/30/17 08: 08; Admin Dose 10 MG; Start 01/16/17 at 09:00 Hydralazine HCl (Apresoline) 75 mg TID PO Last administered on 01/30/17 13:03 ; Admin Dose 75 MG; Start 01/16/17 at 09:00 Clonidine (Catapres) 0.1 mg Q6H PRN PO ELEVATED SYSTOLIC BP Last administered on 01/27/17 05:47; Admin Dose 0.1 MG; Start 01/16/17 at 01:30 Polyethylene Glycol (Miralax) 17 gm BID PO Last administered on 01/30/17 08:08 ; Admin Dose 17 GM; Start 01/16/17 at 21:00 Lubiprostone 24 mcg 24 mcg BID PO Last administered on 01/30/17 08:06; Admin Dose 24 MCG; Start 01/17/17 at 09:00 Ceftriaxone Sodium (Rocephin) 50 ml @ 100 mls/hr Q24H IVPB Last administered on 01/29/17 17:42; Admin Dose 100 MLS/HR; Start 01/17/17 at 17:00 Zolpidem Tartrate (Ambien) 5 mg HS PRN PO INSOMNIA Last administered on 22:40; Admin Dose 5 MG; Start 01/17/17 at 21:30 Acetaminophen/ Hydrocodone Bitart ([place] (10/325)) 1 tab Q4H PRN PO 4-6 PAIN Last administered on 01/28/17 01:35; Admin Dose 1 TAB; Start 01/19/17 at 10:00 Oxycodone HCl (Oxycontin) 10 mg Q8H PO Last administered on 01/30/17 06:09; Admin Dose 10 MG; Start 01/19/17 at 12:00 Ondansetron HCl (Zofran Inj) 4 mg Q6H PRN IV NAUSEA AND/OR VOMITING Last administered on 01/22/17 15:33; Admin Dose 4 MG; Start 01/21/17 at 08:30 Nitroglycerin (Nitroglycerin 2% Oint) 1 inch Q6 TD Last administered on 11:45; Admin Dose 1 INCH; Start 01/22/17 at 04:00 Naloxone HCl (Narcan) 0.2 mg Q2M PRN IV RR 8 BREATHS/MIN OR LESS; Start at 11:00 Heparin Sodium (Porcine) 5000 unit 5,000 unit BID SC Last administered on 08:26; Admin Dose 5,000 UNIT; Start 01/25/17 at 09:00 Vancomycin HCl (Vancocin) 250 ml @ 125 mls/hr Q96H IVPB Last administered on 11:00; Admin Dose 125 MLS/HR; Start 01/29/17 at 10:00 Lidocaine (Lidoderm) 1 patch QPM TD Last administered on 01/29/17 21:11; Admin Dose 1 PATCH; Start 01/29/17 at 21:00 ADALID LEO NP Jan 30, 2017 14:38
[2017-01-30] MEDS: CEFTRIAXONE 2 GM/NS 50 ML IVPB SCH (15:54)
[2017-01-30] MEDS: WARFARIN 5 MG TAB PO SCH (17:01)
[2017-01-30] MEDS: ATORVASTATIN 80 MG TAB PO SCH (20:44)
[2017-01-30] MEDS: LIDOCAINE 5% PATCH TD SCH (21:00)
[2017-01-31] VITALS (11 sets, daily range): BP systolic 124–172; BP diastolic 61–73; PULSE 66–89; RESP 17–19
[2017-01-31] MEDS: ZOLPIDEM 5 MG TAB PO PRN (00:34)
[2017-01-31] MEDS: ACCU-CHEK XX SCH (02:00)
[2017-01-31] MEDS: oxyCODONE (CR) 10 MG TAB [oxyCONTIN] PO SCH ×3 (04:00→21:17)
[2017-01-31] MEDS: PANTOPRAZOLE (EC) 40 MG TAB PO SCH (06:09)
[2017-01-31] MEDS: NITROGLYCERIN 2% 1 GM OINT PKT TD SCH ×4 (06:10→16:53)
[2017-01-31] MEDS: HYDROCODONE/APAP (10/325) TAB PO PRN ×3 (06:12→07:20)
[2017-01-31 06:30] LABS: INR 0.94; PROTIME 12.6 Sec (12.2-14.2)
[2017-01-31] MEDS: SEVELAMER 800 MG TAB PO SCH ×3 (07:55→17:00)
[2017-01-31] MEDS: INSULIN ASPART [NOVOLOG] 3 ML PEN SC SCH ×4 (07:55→21:00)
[2017-01-31] MEDS: POLYETHYLENE GLYCOL 17 GM PACKET PO SCH ×2 (08:43→21:26)
[2017-01-31] MEDS: METOCLOPRAMIDE 5 MG TAB PO SCH ×2 (08:43→21:16)
[2017-01-31] MEDS: SENNA TAB PO SCH (08:43)
[2017-01-31] MEDS: LUBIPROSTONE 24 MCG CAP PO SCH ×2 (08:44→21:16)
[2017-01-31] MEDS: TOLTERODINE 2 MG TAB PO SCH ×2 (08:44→21:17)
[2017-01-31] MEDS: HEPARIN 5,000 UNIT/0.5 ML VIAL SC SCH ×2 (08:50→21:21)
[2017-01-31] MEDS: AMLODIPINE 10 MG TAB PO SCH (09:00)
--- NOTE | 2017-01-31 09:32 | PN ---
DATE: 01/31/2017 SUBJECTIVE DATA: The patient is stable. No events overnight. No fevers, chills, nausea, vomiting. OBJECTIVE DATA: VITAL SIGNS: Blood pressure 135/63, temperature 98.6, pulse 69, respiration 18. HEENT: Head is normocephalic. NECK: Supple. HEART: Regular rate. LUNGS: Diminished breath sounds at the base. ABDOMEN: Soft, nontender to palpation. No rebound or guarding. EXTREMITIES: Negative for clubbing, cyanosis. No edema. DERMATOLOGIC: No rashes. MUSCULOSKELETAL: No joint effusion. NEUROLOGIC: No change in exam. MEDICATIONS: Reviewed. ASSESSMENT AND PLAN: 1. Discitis L5-S1. Patient is status post transforaminal lumbar interbody fusion with ISF placement. The patient is currently stable. Continue current treatment plan. Continue IV antibiotics for six weeks. Follow up with Neurosurgery. 2. Chronic back pain, improved. Continue current medical management. 3. End-stage renal disease. The patient dialysis Wednesday, , Wednesday. Anticipate next dialysis on Wednesday. 4. Hypertension. Continue current blood pressure regimen. 5. Paroxysmal atrial fibrillation. Currently in sinus rhythm. Patient is on Coumadin. Follow up INR. 6. Transient ischemic attack. Continue current treatment plan. 7. Anemia. Monitor H and H levels. 8. Mineral bone disorder. Monitor calcium and phosphorus levels. 9. Diabetes. Continue Accu-Cheks and sliding scale. 10. Gastrointestinal and deep venous thrombosis prophylaxis. Dictated By: Buck Seals DO /saul/yandy /Document#: [id number]
[2017-01-31] MEDS: ASPIRIN 81 MG TAB PO SCH (12:23)
[2017-01-31] MEDS: SERTRALINE 50 MG TAB PO SCH (12:24)
[2017-01-31] MEDS: METOPROLOL 100 MG TAB PO SCH ×2 (12:25→21:16)
--- NOTE | 2017-01-31 14:13 | CONS ---
Date/Time of Note Date/Time of Note DATE: 01/31/17 TIME: 14:06 Assessment/Plan Assessment/Plan Chief Complaint/Hosp Course Assessment/Plan Chief Complaint/Hosp Course SUBJECTIVE DATA: Alert. Complains of Fever and Chills. No Acute Distress. ANTIMICROBIALS: Vanco, ceftriaxone. INDWELLING: The patient has right chest PermCath. PHYSICAL EXAMINATION: GENERAL: Well-developed, obese, middle-aged woman who is in no distress. HEENT: Head atraumatic, normocephalic. Sclerae anicteric. Buccal mucosa dry. NECK: Supple. CHEST: Chest rise symmetrical. Breath sounds diminished at the bases. HEART: S1, S2. ABDOMEN: Soft, bowel sounds present. ASSESSMENT: 1. Spinal discitis with osteomyelitis, status post surgical intervention on 01/22/2017. 2. End-stage renal disease, on hemodialysis. 3. Hypertension. 4. Vancomycin resistant enterococcus (VRE) urinary tract infection (UTI). 5. Anemia. 6. Diabetes. 8. Chills PLAN: 1. The patient remains stable. 2. Continue present care. 3. Continue antibiotics for total of six weeks. 4. Follow neurosurgical recommendations. 5. Monitor Vital Signs. Problems: Consultation Date/Type/Reason Admit Date/Time Jan 12, 2017 at 10:35 Initial Consult Date 01/12/17 Type of Consultation: id Referring Provider: SAM CANTU DO Exam/Review of Systems Vital Signs Vitals Vital Signs Date Time Temp Pulse Resp B/P Pulse Ox O2 Delivery O2 Flow Rate FiO2 01/31/17 12:17 66 01/31/17 12:13 Room Air 01/31/17 12:01 98.4 18 155/72 95 01/31/17 01:28 2.0 Intake and Output 01/30/17 01/30/17 01/31/17 15:00 23:00 07:00 Intake Total 800 ml 650 ml Balance 800 ml 650 ml Results Result Diagram: 01/30/1771601/30/17716 Results 24 hrs Laboratory Tests Test 01/30/17 16:55 01/30/17 20:29 01/31/17 05:58 01/31/17 08:42 Bedside Glucose 159 151 93 Prothrombin Time 12.6 Prothrombin Time Ratio 1.0 INR International Normalized Ratio 0.94 Test 01/31/17 12:21 Bedside Glucose 105 Medications Medications Current Medications Aspirin (Aspirin) 162 mg DAILY PO Last administered on 01/31/17 12:23; Admin Dose 162 MG; Start 01/13/17 at 09:00 Atorvastatin Calcium (Lipitor) 80 mg QHS PO Last administered on 01/30/17 20: 44; Admin Dose 80 MG; Start 01/12/17 at 21:00 Metoclopramide HCl (Reglan) 5 mg BID PO Last administered on 01/30/17 08:07; Admin Dose 5 MG; Start 01/12/17 at 21:00 Metoprolol Tartrate (Lopressor) 100 mg BID PO Last administered on 01/31/17 12 :25; Admin Dose 100 MG; Start 01/12/17 at 21:00 Pantoprazole (Protonix Tab) 40 mg DAILY@06 PO Last administered on 01/31/17 06 :09; Admin Dose 40 MG; Start 01/13/17 at 06:00 Sertraline HCl (Zoloft) 50 mg DAILY PO Last administered on 01/31/17 12:24; Admin Dose 50 MG; Start 01/13/17 at 09:00 Tolterodine Tartrate (Detrol) 2 mg BID PO Last administered on 01/30/17 20:47 ; Admin Dose 2 MG; Start 01/12/17 at 21:00 Diagnostic Test (Pha) (Accu-Chek) 1 ea 02 XX Last administered on 01/18/17 02: 21; Admin Dose 1 EA; Start 01/13/17 at 02:00 Miscellaneous Information 1 ea NOTE XX ; Start 01/12/17 at 13:00 Glucose (Glutose) 15 gm Q15M PRN PO DECREASED GLUCOSE; Start 01/12/17 at 13:00 Glucose (Glutose) 22.5 gm Q15M PRN PO DECREASED GLUCOSE; Start 01/12/17 at 13:00 Dextrose (D50w Syringe) 25 ml Q15M PRN IV DECREASED GLUCOSE Last administered on 01/26/17 12:31; Admin Dose 25 ML; Start 01/12/17 at 13:00 Dextrose (D50w Syringe) 50 ml Q15M PRN IV DECREASED GLUCOSE; Start 01/12/17 at 13:00 Glucagon (Glucagen) 1 mg Q15M PRN IM DECREASED GLUCOSE; Start 01/12/17 at 13:00 Glucose (Glutose) 15 gm Q15M PRN BUCCAL DECREASED GLUCOSE Last administered on 01/26/17 12:12; Admin Dose 15 GM; Start 01/12/17 at 13:00 Morphine Sulfate (morphine) 2 mg Q3H PRN IV PAIN LEVEL 6-10 Last administered on 01/29/17 18:33; Admin Dose 2 MG; Start 01/14/17 at 04:00 Bisacodyl (Dulcolax Supp) 10 mg Q24H PRN [place] CONSTIPATION; Start 01/15/17 at 09: 30 Docusate Sodium (Colace) 100 mg QHS PRN PO CONSTIPATION Last administered on 08:17; Admin Dose 100 MG; Start 01/15/17 at 09:30 Lactulose (Enulose) 20 gm DAILY PRN PO CONSTIPATION Last administered on 01:45; Admin Dose 20 GM; Start 01/15/17 at 09:30 Senna (Senokot) 1 tab DAILY PO Last administered on 01/30/17 08:06; Admin Dose 1 TAB; Start 01/15/17 at 09:30 Sodium Biphosphate/ Sodium Phosphate (Fleet Enema) 133 ml DAILY PRN [place] CONSTIPATION; Start 01/15/17 at 09:30 Amlodipine Besylate (Norvasc) 10 mg DAILY PO Last administered on 01/30/17 08: 08; Admin Dose 10 MG; Start 01/16/17 at 09:00 Hydralazine HCl (Apresoline) 75 mg TID PO Last administered on 01/31/17 12:25 ; Admin Dose 75 MG; Start 01/16/17 at 09:00 Clonidine (Catapres) 0.1 mg Q6H PRN PO ELEVATED SYSTOLIC BP Last administered on 01/27/17 05:47; Admin Dose 0.1 MG; Start 01/16/17 at 01:30 Polyethylene Glycol (Miralax) 17 gm BID PO Last administered on 01/30/17 08:08 ; Admin Dose 17 GM; Start 01/16/17 at 21:00 Lubiprostone 24 mcg 24 mcg BID PO Last administered on 01/30/17 20:45; Admin Dose 24 MCG; Start 01/17/17 at 09:00 Ceftriaxone Sodium (Rocephin) 50 ml @ 100 mls/hr Q24H IVPB Last administered on 01/30/17 15:54; Admin Dose 100 MLS/HR; Start 01/17/17 at 17:00 Zolpidem Tartrate (Ambien) 5 mg HS PRN PO INSOMNIA Last administered on 00:34; Admin Dose 5 MG; Start 01/17/17 at 21:30 Acetaminophen/ Hydrocodone Bitart ([place] (10/325)) 1 tab Q4H PRN PO 4-6 PAIN Last administered on 01/31/17 07:04; Admin Dose 1 TAB; Start 01/19/17 at 10:00 Oxycodone HCl (Oxycontin) 10 mg Q8H PO Last administered on 01/31/17 12:24; Admin Dose 10 MG; Start 01/19/17 at 12:00 Ondansetron HCl (Zofran Inj) 4 mg Q6H PRN IV NAUSEA AND/OR VOMITING Last administered on 01/22/17 15:33; Admin Dose 4 MG; Start 01/21/17 at 08:30 Nitroglycerin (Nitroglycerin 2% Oint) 1 inch Q6 TD Last administered on 06:10; Admin Dose 1 INCH; Start 01/22/17 at 04:00 Naloxone HCl (Narcan) 0.2 mg Q2M PRN IV RR 8 BREATHS/MIN OR LESS; Start at 11:00 Heparin Sodium (Porcine) 5000 unit 5,000 unit BID SC Last administered on 08:50; Admin Dose 5,000 UNIT; Start 01/25/17 at 09:00 Vancomycin HCl (Vancocin) 250 ml @ 125 mls/hr Q96H IVPB Last administered on 11:00; Admin Dose 125 MLS/HR; Start 01/29/17 at 10:00 Lidocaine (Lidoderm) 1 patch QPM TD Last administered on 01/30/17 21:00; Admin Dose 1 PATCH; Start 01/29/17 at 21:00 Warfarin Sodium (Coumadin) 6 mg DAILY@17 PO ; Start 01/31/17 at 17:00 LUI PARIS NP Jan 31, 2017 14:13
[2017-01-31] MEDS: WARFARIN 3 MG TAB PO SCH (16:53)
[2017-01-31] MEDS: CEFTRIAXONE 2 GM/NS 50 ML IVPB SCH (16:54)
[2017-01-31] MEDS: ATORVASTATIN 80 MG TAB PO SCH (21:17)
[2017-01-31] MEDS: LIDOCAINE 5% PATCH TD SCH (21:26)
[2017-02-01] MEDS: NITROGLYCERIN 2% 1 GM OINT PKT TD SCH ×5 (00:37→23:57)
[2017-02-01] MEDS: ACCU-CHEK XX SCH (01:18)
[2017-02-01] MEDS: oxyCODONE (CR) 10 MG TAB [oxyCONTIN] PO SCH ×3 (05:24→20:45)
[2017-02-01] MEDS: PANTOPRAZOLE (EC) 40 MG TAB PO SCH (05:24)
[2017-02-01 07:27] LABS: INR 1.03; PROTIME 13.5 Sec (12.2-14.2); PT RATIO 1.1
[2017-02-01 07:51] VITALS: BP 163/78; RESP 20
[2017-02-01] MEDS: INSULIN ASPART [NOVOLOG] 3 ML PEN SC SCH ×4 (07:55→20:49)
[2017-02-01] MEDS: METOCLOPRAMIDE 5 MG TAB PO SCH ×2 (08:15→20:46)
[2017-02-01] MEDS: LUBIPROSTONE 24 MCG CAP PO SCH ×2 (08:15→20:44)
[2017-02-01] MEDS: METOPROLOL 100 MG TAB PO SCH ×2 (08:16→20:45)
[2017-02-01] MEDS: SERTRALINE 50 MG TAB PO SCH (08:16)
[2017-02-01] MEDS: ASPIRIN 81 MG TAB PO SCH (08:17)
[2017-02-01] MEDS: SENNA TAB PO SCH (08:17)
[2017-02-01] MEDS: AMLODIPINE 10 MG TAB PO SCH (08:17)
[2017-02-01] MEDS: SEVELAMER 800 MG TAB PO SCH ×3 (08:18→18:07)
[2017-02-01] MEDS: HEPARIN 5,000 UNIT/0.5 ML VIAL SC SCH ×2 (08:23→20:47)
[2017-02-01] MEDS: TOLTERODINE 2 MG TAB PO SCH ×2 (08:25→23:54)
[2017-02-01] MEDS: POLYETHYLENE GLYCOL 17 GM PACKET PO SCH ×2 (08:26→20:45)
[2017-02-01 11:43] VITALS: BP 143/67; RESP 18
--- NOTE | 2017-02-01 14:26 | PN ---
DATE: 02/01/2017 SUBJECTIVE DATA: The patient is stable. No events overnight. No fevers, chills, nausea or vomiting. OBJECTIVE DATA: VITAL SIGNS: Blood pressure is 140/67, respirations 18, pulse 67, temperature 98.9. HEENT: Head is normocephalic. NECK: Supple. HEART: Regular rate. LUNGS: Diminished breath sounds at the base. ABDOMEN: Soft, nontender to palpation. No rebound or guarding. EXTREMITIES: Negative for clubbing or cyanosis. No edema. DERMATOLOGIC: Clean. No rashes. MUSCULOSKELETAL: No joint effusions. NEUROLOGIC: No change in exam. MEDICATIONS: Reviewed. LABORATORY AND DIAGNOSTIC DATA: Reviewed. No new labs. ASSESSMENT AND PLAN: 1. Diskitis L5-S1. Patient is status post status transforaminal lumbar interbody fusion with ISF placement. The patient is currently stable. Continue IV antibiotics for 6 weeks total. 2. Chronic back pain, improved. Continue medical management. 3. End-stage renal disease. Plan for hemodialysis tomorrow. 4. Hypertension. Continue current blood pressure regimen. 5. Possible atrial fibrillation, currently in sinus rhythm. Continue Coumadin. Follow INR being managed by Cardiology. 6. TIA. Continue current treatment plan. 7. Anemia. Monitor H and H levels. 8. Mineral bone disorder to monitor counts muscles. 9. Diabetes. Continue Accu-Cheks and insulin sliding scale. 10. Gastrointestinal and deep venous thrombosis prophylaxis. Dictated By: Buck Seals DO /saul/yamini /Document#: [id number]
[2017-02-01 15:08] VITALS: BP 146/80; RESP 18
--- NOTE | 2017-02-01 15:56 | CONS ---
Date/Time of Note Date/Time of Note DATE: 02/01/17 TIME: 15:54 Assessment/Plan Assessment/Plan Chief Complaint/Hosp Course SUBJECTIVE DATA: alert, feels good, no fevers/n/v/d ANTIMICROBIALS: Vanco, ceftriaxone. INDWELLING: The patient has right chest PermCath. PHYSICAL EXAMINATION: GENERAL: Well-developed, obese, middle-aged woman who is in no distress. HEENT: Head atraumatic, normocephalic. Sclerae anicteric. Buccal mucosa dry. NECK: Supple. CHEST: Chest rise symmetrical. Breath sounds diminished at the bases. HEART: S1, S2. ABDOMEN: Soft, bowel sounds present. ASSESSMENT: 1. Spinal discitis with osteomyelitis, status post surgical intervention on 01/22/2017. 2. End-stage renal disease, on hemodialysis. 3. Hypertension. 4. Vancomycin resistant enterococcus (VRE) urinary tract infection (UTI). 5. Anemia. 6. Diabetes. PLAN: 1. The patient remains stable. 2. Continue present care. 3. Continue antibiotics till Mar 06 4. Follow neurosurgical recommendations. DW staff/pt Problems: Consultation Date/Type/Reason Admit Date/Time Jan 12, 2017 at 10:35 Initial Consult Date 01/12/17 Type of Consultation: id Referring Provider: SAM CANTU DO Exam/Review of Systems Vital Signs Vitals Vital Signs Date Time Temp Pulse Resp B/P Pulse Ox O2 Delivery O2 Flow Rate FiO2 02/01/17 15:08 98.4 88 18 146/80 100 01/31/17 16:24 Room Air 01/31/17 01:28 2.0 Intake and Output 01/31/17 01/31/17 02/01/17 15:00 23:00 07:00 Intake Total 850 ml 350 ml Balance 850 ml 350 ml Results Result Diagram: 01/30/17 0717 01/30/17 0717 Results 24 hrs Laboratory Tests Test 01/31/17 16:50 01/31/17 21:08 02/01/17 06:19 02/01/17 08:13 Bedside Glucose 128 148 91 Prothrombin Time 13.5 Prothrombin Time Ratio 1.1 INR International Normalized Ratio 1.03 Test 02/01/17 11:51 Bedside Glucose 155 Medications Medications Current Medications Aspirin (Aspirin) 162 mg DAILY PO Last administered on 02/01/17t 08:17; Admin Dose 162 MG; Start 01/13/17 at 09:00 Atorvastatin Calcium (Lipitor) 80 mg QHS PO Last administered on 01/31/17 21: 17; Admin Dose 80 MG; Start 01/12/17 at 21:00 Metoclopramide HCl (Reglan) 5 mg BID PO Last administered on 02/01/17 08:15; Admin Dose 5 MG; Start 01/12/17 at 21:00 Metoprolol Tartrate (Lopressor) 100 mg BID PO Last administered on 02/01/17 08 :16; Admin Dose 100 MG; Start 01/12/17 at 21:00 Pantoprazole (Protonix Tab) 40 mg DAILY@06 PO Last administered on 02/01/17 05 :24; Admin Dose 40 MG; Start 01/13/17 at 06:00 Sertraline HCl (Zoloft) 50 mg DAILY PO Last administered on 02/01/17 08:16; Admin Dose 50 MG; Start 01/13/17 at 09:00 Tolterodine Tartrate (Detrol) 2 mg BID PO Last administered on 02/01/17 08:25 ; Admin Dose 2 MG; Start 01/12/17 at 21:00 Diagnostic Test (Pha) (Accu-Chek) 1 ea 02 XX Last administered on 01/18/17 02: 21; Admin Dose 1 EA; Start 01/13/17 at 02:00 Miscellaneous Information 1 ea NOTE XX ; Start 01/12/17 at 13:00 Glucose (Glutose) 15 gm Q15M PRN PO DECREASED GLUCOSE; Start 01/12/17 at 13:00 Glucose (Glutose) 22.5 gm Q15M PRN PO DECREASED GLUCOSE; Start 01/12/17 at 13:00 Dextrose (D50w Syringe) 25 ml Q15M PRN IV DECREASED GLUCOSE Last administered on 01/26/17 12:31; Admin Dose 25 ML; Start 01/12/17 at 13:00 Dextrose (D50w Syringe) 50 ml Q15M PRN IV DECREASED GLUCOSE; Start 01/12/17 at 13:00 Glucagon (Glucagen) 1 mg Q15M PRN IM DECREASED GLUCOSE; Start 01/12/17 at 13:00 Glucose (Glutose) 15 gm Q15M PRN BUCCAL DECREASED GLUCOSE Last administered on 01/26/17 12:12; Admin Dose 15 GM; Start 01/12/17 at 13:00 Morphine Sulfate (morphine) 2 mg Q3H PRN IV PAIN LEVEL 6-10 Last administered on 01/29/17 18:33; Admin Dose 2 MG; Start 01/14/17 at 04:00 Bisacodyl (Dulcolax Supp) 10 mg Q24H PRN [place] CONSTIPATION; Start 01/15/17 at 09: 30 Docusate Sodium (Colace) 100 mg QHS PRN PO CONSTIPATION Last administered on 08:17; Admin Dose 100 MG; Start 01/15/17 at 09:30 Lactulose (Enulose) 20 gm DAILY PRN PO CONSTIPATION Last administered on 01:45; Admin Dose 20 GM; Start 01/15/17 at 09:30 Senna (Senokot) 1 tab DAILY PO Last administered on 02/01/17 08:17; Admin Dose 1 TAB; Start 01/15/17 at 09:30 Sodium Biphosphate/ Sodium Phosphate (Fleet Enema) 133 ml DAILY PRN [place] CONSTIPATION; Start 01/15/17 at 09:30 Amlodipine Besylate (Norvasc) 10 mg DAILY PO Last administered on 02/01/17 08: 17; Admin Dose 10 MG; Start 01/16/17 at 09:00 Hydralazine HCl (Apresoline) 75 mg TID PO Last administered on 02/01/17 13:11 ; Admin Dose 75 MG; Start 01/16/17 at 09:00 Clonidine (Catapres) 0.1 mg Q6H PRN PO ELEVATED SYSTOLIC BP Last administered on 01/31/17 16:53; Admin Dose 0.1 MG; Start 01/16/17 at 01:30 Polyethylene Glycol (Miralax) 17 gm BID PO Last administered on 01/31/17 21:26 ; Admin Dose 17 GM; Start 01/16/17 at 21:00 Lubiprostone 24 mcg 24 mcg BID PO Last administered on 02/01/17 08:15; Admin Dose 24 MCG; Start 01/17/17 at 09:00 Ceftriaxone Sodium (Rocephin) 50 ml @ 100 mls/hr Q24H IVPB Last administered on 01/31/17 16:54; Admin Dose 100 MLS/HR; Start 01/17/17 at 17:00 Zolpidem Tartrate (Ambien) 5 mg HS PRN PO INSOMNIA Last administered on 00:34; Admin Dose 5 MG; Start 01/17/17 at 21:30 Acetaminophen/ Hydrocodone Bitart ([place] (10/325)) 1 tab Q4H PRN PO 4-6 PAIN Last administered on 01/31/17 07:04; Admin Dose 1 TAB; Start 01/19/17 at 10:00 Oxycodone HCl (Oxycontin) 10 mg Q8H PO Last administered on 02/01/17 13:10; Admin Dose 10 MG; Start 01/19/17 at 12:00 Ondansetron HCl (Zofran Inj) 4 mg Q6H PRN IV NAUSEA AND/OR VOMITING Last administered on 01/22/17 15:33; Admin Dose 4 MG; Start 01/21/17 at 08:30 Nitroglycerin (Nitroglycerin 2% Oint) 1 inch Q6 TD Last administered on 13:12; Admin Dose 1 INCH; Start 01/22/17 at 04:00 Naloxone HCl (Narcan) 0.2 mg Q2M PRN IV RR 8 BREATHS/MIN OR LESS; Start at 11:00 Heparin Sodium (Porcine) 5000 unit 5,000 unit BID SC Last administered on 08:23; Admin Dose 5,000 UNIT; Start 01/25/17 at 09:00 Vancomycin HCl (Vancocin) 250 ml @ 125 mls/hr Q96H IVPB Last administered on 11:00; Admin Dose 125 MLS/HR; Start 01/29/17 at 10:00 Lidocaine (Lidoderm) 1 patch QPM TD Last administered on 01/31/17 21:26; Admin Dose 1 PATCH; Start 01/29/17 at 21:00 Warfarin Sodium (Coumadin) 6 mg DAILY@17 PO Last administered on 01/31/17 16: 53; Admin Dose 6 MG; Start 01/31/17 at 17:00 ADALID LEO NP Feb 01, 2017 15:56
--- NOTE | 2017-02-01 16:01 | CONS ---
Date/Time of Note Date/Time of Note DATE: 02/01/17 TIME: 16:00 Consult Date/Type/Reason Admit Date/Time Jan 12, 2017 at 10:35 Initial Consult Date 01/12/17 Type of Consultation: CARDIOLOGY Ordering Provider: SAM CANTU DO Subjective CARDIOLOGY FOLLOW UP NOTE Discussed with staff and Pt is off tele now. PT s/p surgery 01/22. she denies any chest pain or pressure or palpitation to me. she has minimal back pain objective: General: no acute distress HEENT: NC/AT. pupils are equal. round. NECK: NO JVD. no stridor. CV: RRR. systolic murmur; no gallop or rubs. PULM: no wheezing or rhonchi. GI: SOFT, NT, ND, no rebound or guarding Extremity: trace B/L LE edema. no clubbing. neuro: awake and alert, Psych: calm and pleasant rectal: deferred Objective Vital Signs Date Time Temp Pulse Resp B/P Pulse Ox O2 Delivery O2 Flow Rate FiO2 02/01/17 15:08 98.4 88 18 146/80 100 01/31/17 16:24 Room Air 01/31/17 01:28 2.0 Intake and Output 01/31/17 01/31/17 02/01/17 15:00 23:00 07:00 Intake Total 850 ml 350 ml Balance 850 ml 350 ml Results/Medications Result Diagram: 01/30/1771601/30/1717 Results 24 hrs Laboratory Tests Test 01/31/17 16:50 01/31/17 21:08 02/01/17 06:19 02/01/17 08:13 Bedside Glucose 128 148 91 Prothrombin Time 13.5 Prothrombin Time Ratio 1.1 INR International Normalized Ratio 1.03 Test 02/01/17 11:51 Bedside Glucose 155 Medications Current Medications Aspirin (Aspirin) 162 mg DAILY PO Last administered on 02/01/17 08:17; Admin Dose 162 MG; Start 01/13/17 at 09:00 Atorvastatin Calcium (Lipitor) 80 mg QHS PO Last administered on 01/31/17 21: 17; Admin Dose 80 MG; Start 01/12/17 at 21:00 Metoclopramide HCl (Reglan) 5 mg BID PO Last administered on 02/01/17 08:15; Admin Dose 5 MG; Start 01/12/17 at 21:00 Metoprolol Tartrate (Lopressor) 100 mg BID PO Last administered on 02/01/17 08 :16; Admin Dose 100 MG; Start 01/12/17 at 21:00 Pantoprazole (Protonix Tab) 40 mg DAILY@06 PO Last administered on 02/01/17 05 :24; Admin Dose 40 MG; Start 01/13/17 at 06:00 Sertraline HCl (Zoloft) 50 mg DAILY PO Last administered on 02/01/17 08:16; Admin Dose 50 MG; Start 01/13/17 at 09:00 Tolterodine Tartrate (Detrol) 2 mg BID PO Last administered on 02/01/17 08:25 ; Admin Dose 2 MG; Start 01/12/17 at 21:00 Diagnostic Test (Pha) (Accu-Chek) 1 ea 02 XX Last administered on 01/18/17 02: 21; Admin Dose 1 EA; Start 01/13/17 at 02:00 Miscellaneous Information 1 ea NOTE XX ; Start 01/12/17 at 13:00 Glucose (Glutose) 15 gm Q15M PRN PO DECREASED GLUCOSE; Start 01/12/17 at 13:00 Glucose (Glutose) 22.5 gm Q15M PRN PO DECREASED GLUCOSE; Start 01/12/17 at 13:00 Dextrose (D50w Syringe) 25 ml Q15M PRN IV DECREASED GLUCOSE Last administered on 01/26/17 12:31; Admin Dose 25 ML; Start 01/12/17 at 13:00 Dextrose (D50w Syringe) 50 ml Q15M PRN IV DECREASED GLUCOSE; Start 01/12/17 at 13:00 Glucagon (Glucagen) 1 mg Q15M PRN IM DECREASED GLUCOSE; Start 01/12/17 at 13:00 Glucose (Glutose) 15 gm Q15M PRN BUCCAL DECREASED GLUCOSE Last administered on 01/26/17 12:12; Admin Dose 15 GM; Start 01/12/17 at 13:00 Morphine Sulfate (morphine) 2 mg Q3H PRN IV PAIN LEVEL 6-10 Last administered on 01/29/17 18:33; Admin Dose 2 MG; Start 01/14/17 at 04:00 Bisacodyl (Dulcolax Supp) 10 mg Q24H PRN [place] CONSTIPATION; Start 01/15/17 at 09: 30 Docusate Sodium (Colace) 100 mg QHS PRN PO CONSTIPATION Last administered on 08:17; Admin Dose 100 MG; Start 01/15/17 at 09:30 Lactulose (Enulose) 20 gm DAILY PRN PO CONSTIPATION Last administered on 01:45; Admin Dose 20 GM; Start 01/15/17 at 09:30 Senna (Senokot) 1 tab DAILY PO Last administered on 02/01/17 08:17; Admin Dose 1 TAB; Start 01/15/17 at 09:30 Sodium Biphosphate/ Sodium Phosphate (Fleet Enema) 133 ml DAILY PRN [place] CONSTIPATION; Start 01/15/17 at 09:30 Amlodipine Besylate (Norvasc) 10 mg DAILY PO Last administered on 02/01/17 08: 17; Admin Dose 10 MG; Start 01/16/17 at 09:00 Hydralazine HCl (Apresoline) 75 mg TID PO Last administered on 02/01/17 13:11 ; Admin Dose 75 MG; Start 01/16/17 at 09:00 Clonidine (Catapres) 0.1 mg Q6H PRN PO ELEVATED SYSTOLIC BP Last administered on 01/31/17 16:53; Admin Dose 0.1 MG; Start 01/16/17 at 01:30 Polyethylene Glycol (Miralax) 17 gm BID PO Last administered on 01/31/17 21:26 ; Admin Dose 17 GM; Start 01/16/17 at 21:00 Lubiprostone 24 mcg 24 mcg BID PO Last administered on 02/01/17 08:15; Admin Dose 24 MCG; Start 01/17/17 at 09:00 Ceftriaxone Sodium (Rocephin) 50 ml @ 100 mls/hr Q24H IVPB Last administered on 01/31/17 16:54; Admin Dose 100 MLS/HR; Start 01/17/17 at 17:00 Zolpidem Tartrate (Ambien) 5 mg HS PRN PO INSOMNIA Last administered on 00:34; Admin Dose 5 MG; Start 01/17/17 at 21:30 Acetaminophen/ Hydrocodone Bitart ([place] (10/325)) 1 tab Q4H PRN PO 4-6 PAIN Last administered on 01/31/17 07:04; Admin Dose 1 TAB; Start 01/19/17 at 10:00 Oxycodone HCl (Oxycontin) 10 mg Q8H PO Last administered on 02/01/17 13:10; Admin Dose 10 MG; Start 01/19/17 at 12:00 Ondansetron HCl (Zofran Inj) 4 mg Q6H PRN IV NAUSEA AND/OR VOMITING Last administered on 01/22/17 15:33; Admin Dose 4 MG; Start 01/21/17 at 08:30 Nitroglycerin (Nitroglycerin 2% Oint) 1 inch Q6 TD Last administered on 13:12; Admin Dose 1 INCH; Start 01/22/17 at 04:00 Naloxone HCl (Narcan) 0.2 mg Q2M PRN IV RR 8 BREATHS/MIN OR LESS; Start at 11:00 Heparin Sodium (Porcine) 5000 unit 5,000 unit BID SC Last administered on 08:23; Admin Dose 5,000 UNIT; Start 01/25/17 at 09:00 Vancomycin HCl (Vancocin) 250 ml @ 125 mls/hr Q96H IVPB Last administered on 11:00; Admin Dose 125 MLS/HR; Start 01/29/17 at 10:00 Lidocaine (Lidoderm) 1 patch QPM TD Last administered on 01/31/17 21:26; Admin Dose 1 PATCH; Start 01/29/17 at 21:00 Warfarin Sodium (Coumadin) 6 mg DAILY@17 PO Last administered on 01/31/17 16: 53; Admin Dose 6 MG; Start 01/31/17 at 17:00 Assessment/Plan Chief Complaint/Hosp Course 1. Slurred speech:improved now. F/U with neurology rec. . 2. End-stage renal disease. cont HD as per renal 3. Hypertension. Continue current blood pressure regimen. cont HD. 4. History of chronic obstructive pulmonary disease. Continue medical management. 5. History of P afib.per old records. currently in NSR. coumadin has been resumed . check INR and adjust 6. History of T7 paraplegia. Continue physical therapy. s/p surgery 7. Anemia. defer to IM 8. Dyslipidemia. Continue statin therapy. 09. Diabetes. Continue Accu-Cheks and insulin sliding scale. 10. [facility] LBP with Radi. and L5-S1 Osteo/Diskitis: s/p L5-S1 TLIF with ISF placement. currently is ICU. Coumadin to be adjusted to goal INR 2-3 11. DC planning: as per IM. Thank you for this referral I will continue to follow along with you. TAMERA BAILEY MD [facility] Problems: TAMERA BAILEY MD Feb 01, 2017 16:01
[2017-02-01] MEDS: WARFARIN 3 MG TAB PO SCH (18:07)
[2017-02-01] MEDS: CEFTRIAXONE 2 GM/NS 50 ML IVPB SCH (18:08)
[2017-02-01] MEDS: ATORVASTATIN 80 MG TAB PO SCH (20:44)
[2017-02-01] MEDS: LIDOCAINE 5% PATCH TD SCH (20:51)
[2017-02-01 21:06] VITALS: BP 137/64; RESP 18
[2017-02-02] VITALS (12 sets, daily range): BP systolic 113–171; BP diastolic 62–82; PULSE 68–80; RESP 20
[2017-02-02] MEDS: ZOLPIDEM 5 MG TAB PO PRN (00:57)
[2017-02-02] MEDS: ACCU-CHEK XX SCH (02:00)
[2017-02-02] MEDS: oxyCODONE (CR) 10 MG TAB [oxyCONTIN] PO SCH ×3 (04:30→20:28)
[2017-02-02] MEDS: PANTOPRAZOLE (EC) 40 MG TAB PO SCH (05:45)
[2017-02-02] MEDS: NITROGLYCERIN 2% 1 GM OINT PKT TD SCH ×4 (05:49→23:57)
[2017-02-02 06:34] LABS: BASOPHIL # 0.1 10^3/ul (0.0-0.1); BASOPHILS % 0.9 % (0.0-2.0); EOSINOPHILS # 0.5 10^3/ul (0.0-0.5); EOSINOPHILS % 5.3 % (0.0-7.0); HEMATOCRIT 28.3 % (37.0-47.0); LYMPHOCYTES # 2.7 10^3/ul (0.8-2.9); MEAN CORPUSCULAR HEMOGLOBIN 30.6 pg (29.0-33.0); MEAN CORPUSCULAR HGB CONC 31.8 g/dl (32.0-37.0); MEAN CORPUSCULAR VOLUME 96.3 fl (82.0-101.0); MEAN PLATELET VOLUME 8.2 fl (7.4-10.4); MONOCYTE # 0.9 10^3/ul (0.3-0.9); NEUTROPHILS % 53.6 % (39.0-77.0); PLATELET COUNT 281 10^3/UL (140-415); RED BLOOD COUNT 2.94 10^6/ul (4.20-5.40); RED CELL DISTRIBUTION WIDTH 14.7 % (11.5-14.5); WHITE BLOOD COUNT 9.2 10^3/ul (4.8-10.8)
[2017-02-02 07:02] LABS: INR 1.01; PROTIME 13.3 Sec (12.2-14.2)
[2017-02-02 07:14] LABS: CALCIUM 8.7 mg/dl (8.4-10.2); CREATININE 3.15 mg/dl (0.44-1.00); PHOSPHORUS 4.4 mg/dl (2.5-4.9); POTASSIUM 4.6 mmol/L (3.5-5.1)
[2017-02-02 07:31] LABS: MAGNESIUM 1.8 mg/dl (1.7-2.5)
[2017-02-02] MEDS: INSULIN ASPART [NOVOLOG] 3 ML PEN SC SCH ×4 (08:00→20:19)
[2017-02-02] MEDS: SENNA TAB PO SCH (08:25)
[2017-02-02] MEDS: POLYETHYLENE GLYCOL 17 GM PACKET PO SCH ×2 (08:25→20:40)
[2017-02-02] MEDS: HEPARIN 5,000 UNIT/0.5 ML VIAL SC SCH ×2 (08:25→20:29)
[2017-02-02] MEDS: LUBIPROSTONE 24 MCG CAP PO SCH ×2 (08:25→20:26)
[2017-02-02] MEDS: SERTRALINE 50 MG TAB PO SCH (08:25)
[2017-02-02] MEDS: ASPIRIN 81 MG TAB PO SCH (08:26)
[2017-02-02] MEDS: AMLODIPINE 10 MG TAB PO SCH (08:26)
[2017-02-02] MEDS: METOCLOPRAMIDE 5 MG TAB PO SCH ×2 (08:26→20:27)
[2017-02-02] MEDS: METOPROLOL 100 MG TAB PO SCH ×2 (08:26→20:26)
[2017-02-02] MEDS: SEVELAMER 800 MG TAB PO SCH ×3 (08:27→17:39)
[2017-02-02] MEDS: TOLTERODINE 2 MG TAB PO SCH ×2 (08:27→20:27)
[2017-02-02] MEDS: HYDROCODONE/APAP (10/325) TAB PO PRN ×2 (09:18→17:56)
--- NOTE | 2017-02-02 10:03 | PN ---
DATE: 02/02/2017 SUBJECTIVE DATA: Patient is stable. Scheduled for hemodialysis today. OBJECTIVE DATA: VITAL SIGNS: Blood pressure 170/74, respirations 20, pulse 70, temperature 98.7. HEENT: Head is normocephalic. NECK: Supple. HEART: Regular rate. LUNGS: Show diminished breath sounds at the base. ABDOMEN: Soft, nontender to palpation. No rebound or guarding. EXTREMITIES: Negative for clubbing, cyanosis. No edema. DERMATOLOGIC: Clean. No rashes. MUSCULOSKELETAL: No joint effusion. NEUROLOGIC: No change in exam. MEDICATIONS: Reviewed. LABORATORY AND DIAGNOSTIC DATA: Reviewed. ASSESSMENT AND PLAN: 1. Diskitis, L5-S1. The patient is status post transforaminal lumbar interbody fusion with placement. The patient is currently stable. Continue intravenous antibiotics for another 6 weeks. 2. Chronic back pain, improved. 3. End-stage renal disease. Continue hemodialysis. 4. Hypertension. Continue current blood pressure regimen. 5. Atrial fibrillation. Continue current medical management. Continue Coumadin. Dose being adjusted by Cardiology. 6. Transient ischemic attack, resolved. 7. Anemia. Monitor H and H levels. 8. Mineral bone disorder. Continue to monitor calcium and phosphorus levels. 9. Diabetes. Continue Accu-Cheks and insulin sliding scale. 10. Gastrointestinal and deep venous thrombosis prophylaxis. Dictated By: Buck Seals DO /saul/josee /Document#: [id number]
[2017-02-02] MEDS: VANCOMYCIN 1 GM in NS 250 ML IVPB SCH (10:55)
[2017-02-02] MEDS ORDERED: CEFTRIAXONE 1 GM/50 ML IVPB ONE (14:50)
[2017-02-02] MEDS: CEFTRIAXONE 2 GM/NS 50 ML IVPB SCH (17:39)
[2017-02-02] MEDS: WARFARIN 3 MG TAB PO SCH (18:41)
[2017-02-02] MEDS: ATORVASTATIN 80 MG TAB PO SCH (20:27)
[2017-02-02] MEDS: LIDOCAINE 5% PATCH TD SCH (20:31)
--- NOTE | 2017-02-02 21:31 | CONS ---
Date/Time of Note Date/Time of Note DATE: 02/02/17 TIME: 21:30 Assessment/Plan Assessment/Plan Chief Complaint/Hosp Course SUBJECTIVE DATA: alert, feels good, no fevers/n/v/d, family at bedside ANTIMICROBIALS: Vanco, ceftriaxone. INDWELLING: The patient has right chest PermCath. PHYSICAL EXAMINATION: GENERAL: Well-developed, obese, middle-aged woman who is in no distress. HEENT: Head atraumatic, normocephalic. Sclerae anicteric. Buccal mucosa dry. NECK: Supple. CHEST: Chest rise symmetrical. Breath sounds diminished at the bases. HEART: S1, S2. ABDOMEN: Soft, bowel sounds present. ASSESSMENT: 1. Spinal discitis with osteomyelitis, status post surgical intervention on 01/22/2017. 2. End-stage renal disease, on hemodialysis. 3. Hypertension. 4. Vancomycin resistant enterococcus (VRE) urinary tract infection (UTI). 5. Anemia. 6. Diabetes. PLAN: The patient remains stable. Continue antibiotics till Mar 06, pending dc staff/pt Problems: Consultation Date/Type/Reason Admit Date/Time Jan 12, 2017 at 10:35 Initial Consult Date 01/12/17 Type of Consultation: ID Referring Provider: SAM CANTU DO Exam/Review of Systems Vital Signs Vitals Vital Signs Date Time Temp Pulse Resp B/P Pulse Ox O2 Delivery O2 Flow Rate FiO2 02/02/17 21:00 99.0 68 20 128/62 95 01/31/17 16:24 Room Air 01/31/17 01:28 2.0 Intake and Output 02/01/17 02/01/17 02/02/17 15:00 23:00 07:00 Intake Total 870 ml 600 ml Balance 870 ml 600 ml Results Result Diagram: 02/02/17 0533 02/02/17 0533 Results 24 hrs Laboratory Tests Test 02/02/17 05:33 02/02/17 08:21 02/02/17 12:30 02/02/17 17:41 White Blood Count 9.2 Red Blood Count 2.94 L Hemoglobin 9.0 L Hematocrit 28.3 L Mean Corpuscular Volume 96.3 Mean Corpuscular Hemoglobin 30.6 Mean Corpuscular Hemoglobin Concent 31.8 L Red Cell Distribution Width 14.7 H Platelet Count 281 Mean Platelet Volume 8.2 Neutrophils % 53.6 Lymphocytes % 29.0 Monocytes % 10.0 Eosinophils % 5.3 Basophils % 0.9 Nucleated Red Blood Cells % 0.0 Neutrophils # 5.0 Lymphocytes # 2.7 Monocytes # 0.9 Eosinophils # 0.5 Basophils # 0.1 Nucleated Red Blood Cells # 0.0 Prothrombin Time 13.3 Prothrombin Time Ratio 1.0 INR International Normalized Ratio 1.01 Sodium Level 136 Potassium Level 4.6 Chloride Level 103 Carbon Dioxide Level 27 Anion Gap 11 Blood Urea Nitrogen 31 H Creatinine 3.15 H Glucose Level 83 Calcium Level 8.7 Phosphorus Level 4.4 Magnesium Level 1.8 Bedside Glucose 84 113 177 Test 02/02/17 20:17 Bedside Glucose 205 Medications Medications Current Medications Aspirin (Aspirin) 162 mg DAILY PO Last administered on 02/02/17 08:26; Admin Dose 162 MG; Start 01/13/17 at 09:00 Atorvastatin Calcium (Lipitor) 80 mg QHS PO Last administered on 02/02/17 20: 27; Admin Dose 80 MG; Start 01/12/17 at 21:00 Metoclopramide HCl (Reglan) 5 mg BID PO Last administered on 02/02/17 20:27; Admin Dose 5 MG; Start 01/12/17 at 21:00 Metoprolol Tartrate (Lopressor) 100 mg BID PO Last administered on 02/02/17 20 :26; Admin Dose 100 MG; Start 01/12/17 at 21:00 Pantoprazole (Protonix Tab) 40 mg DAILY@06 PO Last administered on 02/02/17 05 :45; Admin Dose 40 MG; Start 01/13/17 at 06:00 Sertraline HCl (Zoloft) 50 mg DAILY PO Last administered on 02/02/17 08:25; Admin Dose 50 MG; Start 01/13/17 at 09:00 Tolterodine Tartrate (Detrol) 2 mg BID PO Last administered on 02/02/17 20:27 ; Admin Dose 2 MG; Start 01/12/17 at 21:00 Diagnostic Test (Pha) (Accu-Chek) 1 ea 02 XX Last administered on 01/18/17 02: 21; Admin Dose 1 EA; Start 01/13/17 at 02:00 Miscellaneous Information 1 ea NOTE XX ; Start 01/12/17 at 13:00 Glucose (Glutose) 15 gm Q15M PRN PO DECREASED GLUCOSE; Start 01/12/17 at 13:00 Glucose (Glutose) 22.5 gm Q15M PRN PO DECREASED GLUCOSE; Start 01/12/17 at 13:00 Dextrose (D50w Syringe) 25 ml Q15M PRN IV DECREASED GLUCOSE Last administered on 01/26/17 12:31; Admin Dose 25 ML; Start 01/12/17 at 13:00 Dextrose (D50w Syringe) 50 ml Q15M PRN IV DECREASED GLUCOSE; Start 01/12/17 at 13:00 Glucagon (Glucagen) 1 mg Q15M PRN IM DECREASED GLUCOSE; Start 01/12/17 at 13:00 Glucose (Glutose) 15 gm Q15M PRN BUCCAL DECREASED GLUCOSE Last administered on 01/26/17 12:12; Admin Dose 15 GM; Start 01/12/17 at 13:00 Morphine Sulfate (morphine) 2 mg Q3H PRN IV PAIN LEVEL 6-10 Last administered on 01/29/17 18:33; Admin Dose 2 MG; Start 01/14/17 at 04:00 Bisacodyl (Dulcolax Supp) 10 mg Q24H PRN [place] CONSTIPATION; Start 01/15/17 at 09: 30 Docusate Sodium (Colace) 100 mg QHS PRN PO CONSTIPATION Last administered on 08:17; Admin Dose 100 MG; Start 01/15/17 at 09:30 Lactulose (Enulose) 20 gm DAILY PRN PO CONSTIPATION Last administered on 01:45; Admin Dose 20 GM; Start 01/15/17 at 09:30 Senna (Senokot) 1 tab DAILY PO Last administered on 02/02/17 08:25; Admin Dose 1 TAB; Start 01/15/17 at 09:30 Sodium Biphosphate/ Sodium Phosphate (Fleet Enema) 133 ml DAILY PRN [place] CONSTIPATION; Start 01/15/17 at 09:30 Amlodipine Besylate (Norvasc) 10 mg DAILY PO Last administered on 02/02/17 08: 26; Admin Dose 10 MG; Start 01/16/17 at 09:00 Hydralazine HCl (Apresoline) 75 mg TID PO Last administered on 02/02/17 20:27 ; Admin Dose 75 MG; Start 01/16/17 at 09:00 Clonidine (Catapres) 0.1 mg Q6H PRN PO ELEVATED SYSTOLIC BP Last administered on 01/31/17 16:53; Admin Dose 0.1 MG; Start 01/16/17 at 01:30 Polyethylene Glycol (Miralax) 17 gm BID PO Last administered on 02/02/17 08:25 ; Admin Dose 17 GM; Start 01/16/17 at 21:00 Lubiprostone 24 mcg 24 mcg BID PO Last administered on 02/02/17 20:26; Admin Dose 24 MCG; Start 01/17/17 at 09:00 Ceftriaxone Sodium (Rocephin) 50 ml @ 100 mls/hr Q24H IVPB Last administered on 02/02/17 17:39; Admin Dose 100 MLS/HR; Start 01/17/17 at 17:00 Zolpidem Tartrate (Ambien) 5 mg HS PRN PO INSOMNIA Last administered on 00:57; Admin Dose 5 MG; Start 01/17/17 at 21:30 Acetaminophen/ Hydrocodone Bitart ([place] (10/325)) 1 tab Q4H PRN PO 4-6 PAIN Last administered on 02/02/17 17:56; Admin Dose 1 TAB; Start 01/19/17 at 10:00 Oxycodone HCl (Oxycontin) 10 mg Q8H PO Last administered on 02/02/17 20:28; Admin Dose 10 MG; Start 01/19/17 at 12:00 Ondansetron HCl (Zofran Inj) 4 mg Q6H PRN IV NAUSEA AND/OR VOMITING Last administered on 01/22/17 15:33; Admin Dose 4 MG; Start 01/21/17 at 08:30 Nitroglycerin (Nitroglycerin 2% Oint) 1 inch Q6 TD Last administered on 05:49; Admin Dose 1 INCH; Start 01/22/17 at 04:00 Naloxone HCl (Narcan) 0.2 mg Q2M PRN IV RR 8 BREATHS/MIN OR LESS; Start at 11:00 Heparin Sodium (Porcine) 5000 unit 5,000 unit BID SC Last administered on 20:29; Admin Dose 5,000 UNIT; Start 01/25/17 at 09:00 Vancomycin HCl (Vancocin) 250 ml @ 125 mls/hr Q96H IVPB Last administered on 10:55; Admin Dose 125 MLS/HR; Start 01/29/17 at 10:00 Lidocaine (Lidoderm) 1 patch QPM TD Last administered on 02/02/17 20:31; Admin Dose 1 PATCH; Start 01/29/17 at 21:00 Warfarin Sodium (Coumadin) 6 mg DAILY@17 PO Last administered on 02/02/17 18: 41; Admin Dose 6 MG; Start 01/31/17 at 17:00 ADALID LEO NP Feb 02, 2017 21:31
[2017-02-03 02:00] VITALS: BP 141/65; RESP 18
[2017-02-03] MEDS: ACCU-CHEK XX SCH (02:00)
[2017-02-03] MEDS: oxyCODONE (CR) 10 MG TAB [oxyCONTIN] PO SCH ×3 (04:21→20:36)
[2017-02-03] MEDS: PANTOPRAZOLE (EC) 40 MG TAB PO SCH (05:43)
[2017-02-03] MEDS: NITROGLYCERIN 2% 1 GM OINT PKT TD SCH ×4 (05:43→23:09)
[2017-02-03 08:00] VITALS: BP 169/79; RESP 20
[2017-02-03] MEDS: INSULIN ASPART [NOVOLOG] 3 ML PEN SC SCH ×4 (08:00→20:32)
[2017-02-03] MEDS: HYDROCODONE/APAP (10/325) TAB PO PRN ×2 (08:20→15:45)
[2017-02-03] MEDS: SERTRALINE 50 MG TAB PO SCH (08:24)
[2017-02-03] MEDS: HEPARIN 5,000 UNIT/0.5 ML VIAL SC SCH ×2 (08:24→20:33)
[2017-02-03] MEDS: SEVELAMER 800 MG TAB PO SCH ×3 (08:24→17:32)
[2017-02-03] MEDS: SENNA TAB PO SCH (08:26)
[2017-02-03] MEDS: TOLTERODINE 2 MG TAB PO SCH ×2 (08:26→20:38)
[2017-02-03] MEDS: LUBIPROSTONE 24 MCG CAP PO SCH ×2 (08:26→20:36)
[2017-02-03] MEDS: AMLODIPINE 10 MG TAB PO SCH (08:27)
[2017-02-03] MEDS: ASPIRIN 81 MG TAB PO SCH (08:27)
[2017-02-03] MEDS: METOPROLOL 100 MG TAB PO SCH ×2 (08:28→20:38)
[2017-02-03] MEDS: METOCLOPRAMIDE 5 MG TAB PO SCH ×2 (08:28→20:41)
[2017-02-03] MEDS: POLYETHYLENE GLYCOL 17 GM PACKET PO SCH ×2 (08:29→20:38)
--- NOTE | 2017-02-03 10:38 | RADRPT ---
PROCEDURE: US guidance for PICC line CLINICAL INDICATION: PICC line placement TECHNIQUE: Multiple real-time images were acquired of the patient's arm utilizing a high resolutio n transducer. This was performed by the PICC line nurse for venous access. COMPARISON: None FINDINGS: Ultrasound guidance for PICC line placement. IMPRESSION: Ultrasound guidance for PICC line placement. RPTAT: AA .Jairo Fatima MD, MD Date Time Electronically viewed and signed by .Jairo Fatima MD, on 02/03/2017 10:38 .S/
--- NOTE | 2017-02-03 11:09 | PN ---
DATE: 02/03/2017 SUBJECTIVE DATA: Patient is stable. No events overnight. No fevers, chills, nausea, vomiting. OBJECTIVE DATA: VITAL SIGNS: Blood pressure 169/79, temperature 98.6 respirations 20. HEENT: Head is normocephalic. NECK: Supple. HEART: Regular rate. LUNGS: Diminished breath sounds at the base. ABDOMEN: Soft, nontender to palpation. No rebound or guarding. EXTREMITIES: Negative for clubbing, cyanosis. No edema. DERMATOLOGIC: Clean. No rashes. MUSCULOSKELETAL: No joint effusion. NEUROLOGIC: No change in exam. MEDICATIONS: Reviewed. LABORATORY AND DIAGNOSTIC DATA: Been reviewed. No new labs. ASSESSMENT AND PLAN: 1. Diskitis L5, S1. The patient is status post transforaminal lumbar interbody fusion. The patient is currently stable. Continue IV antibiotics. Follow up for 6 weeks. Follow up Infectious Disease. 2. End-stage renal disease. Plan for dialysis tomorrow. 3. Hypertension. Continue current blood pressure regimen. 4. Atrial fibrillation. Continue current medical management. 5. Transient ischemic attack, resolved. 6. Anemia. Monitor H and H levels. 7. Mineral bone disorder. Monitor calcium and phosphorus levels. 8. Diabetes. Continue Accu-Cheks and insulin sliding scale. 9. Gastrointestinal and deep venous thrombosis prophylaxis. DISPOSITION: We will place an acute rehab evaluation. Dictated By: Buck Seals DO /saul/monica /Document#: [id number]
--- NOTE | 2017-02-03 13:04 | CONS ---
Date/Time of Note Date/Time of Note DATE: 02/03/17 TIME: 13:03 Assessment/Plan Assessment/Plan Chief Complaint/Hosp Course SUBJECTIVE DATA: No fevers/n/v/d, looks comfortable ANTIMICROBIALS: Vanco, ceftriaxone. INDWELLING: The patient has right chest PermCath. PHYSICAL EXAMINATION: GENERAL: Well-developed, obese, middle-aged woman who is in no distress. HEENT: Head atraumatic, normocephalic. Sclerae anicteric. Buccal mucosa dry. NECK: Supple. CHEST: Chest rise symmetrical. Breath sounds diminished at the bases. HEART: S1, S2. ABDOMEN: Soft, bowel sounds present. ASSESSMENT: 1. Spinal discitis with osteomyelitis, status post surgical intervention on 01/22/2017. 2. End-stage renal disease, on hemodialysis. 3. Hypertension. 4. Vancomycin resistant enterococcus (VRE) urinary tract infection (UTI). 5. Anemia. 6. Diabetes. PLAN: The patient remains stable. Continue antibiotics till Mar 06, pending dc [facility] staff/pt Problems: Consultation Date/Type/Reason Admit Date/Time Jan 12, 2017 at 10:35 Initial Consult Date 01/12/17 Type of Consultation: ID Referring Provider: SAM CANTU DO Exam/Review of Systems Vital Signs Vitals Vital Signs Date Time Temp Pulse Resp B/P Pulse Ox O2 Delivery O2 Flow Rate FiO2 02/03/17 08:00 98.6 82 20 169/79 96 02/02/17 02:00 Room Air 01/31/17 01:28 2.0 Intake and Output 02/02/17 02/02/17 02/03/17 15:00 23:00 07:00 Intake Total 550 ml 1000 ml 450 ml Output Total 3300 ml Balance -2750 ml 1000 ml 450 ml Results Result Diagram: 02/02/17 0533 02/02/17 0533 Results 24 hrs Laboratory Tests Test 02/02/17 17:41 02/02/17 20:17 02/03/17 02:29 02/03/17 08:21 Bedside Glucose 177 205 120 107 Test 02/03/17 12:08 Bedside Glucose 110 Medications Medications Current Medications Aspirin (Aspirin) 162 mg DAILY PO Last administered on 02/03/17t 08:27; Admin Dose 162 MG; Start 01/13/17 at 09:00 Atorvastatin Calcium (Lipitor) 80 mg QHS PO Last administered on 02/02/17 20: 27; Admin Dose 80 MG; Start 01/12/17 at 21:00 Metoclopramide HCl (Reglan) 5 mg BID PO Last administered on 02/03/17 08:28; Admin Dose 5 MG; Start 01/12/17 at 21:00 Metoprolol Tartrate (Lopressor) 100 mg BID PO Last administered on 02/03/17 08 :28; Admin Dose 100 MG; Start 01/12/17 at 21:00 Pantoprazole (Protonix Tab) 40 mg DAILY@06 PO Last administered on 02/03/17 05 :43; Admin Dose 40 MG; Start 01/13/17 at 06:00 Sertraline HCl (Zoloft) 50 mg DAILY PO Last administered on 02/03/17 08:24; Admin Dose 50 MG; Start 01/13/17 at 09:00 Tolterodine Tartrate (Detrol) 2 mg BID PO Last administered on 02/03/17 08:26 ; Admin Dose 2 MG; Start 01/12/17 at 21:00 Diagnostic Test (Pha) (Accu-Chek) 1 ea 02 XX Last administered on 01/18/17 02: 21; Admin Dose 1 EA; Start 01/13/17 at 02:00 Miscellaneous Information 1 ea NOTE XX ; Start 01/12/17 at 13:00 Glucose (Glutose) 15 gm Q15M PRN PO DECREASED GLUCOSE; Start 01/12/17 at 13:00 Glucose (Glutose) 22.5 gm Q15M PRN PO DECREASED GLUCOSE; Start 01/12/17 at 13:00 Dextrose (D50w Syringe) 25 ml Q15M PRN IV DECREASED GLUCOSE Last administered on 01/26/17 12:31; Admin Dose 25 ML; Start 01/12/17 at 13:00 Dextrose (D50w Syringe) 50 ml Q15M PRN IV DECREASED GLUCOSE; Start 01/12/17 at 13:00 Glucagon (Glucagen) 1 mg Q15M PRN IM DECREASED GLUCOSE; Start 01/12/17 at 13:00 Glucose (Glutose) 15 gm Q15M PRN [place] DECREASED GLUCOSE Last administered on 01/26/17 12:12; Admin Dose 15 GM; Start 01/12/17 at 13:00 Morphine Sulfate (morphine) 2 mg Q3H PRN IV PAIN LEVEL 6-10 Last administered on 01/29/17 18:33; Admin Dose 2 MG; Start 01/14/17 at 04:00 Bisacodyl (Dulcolax Supp) 10 mg Q24H PRN [place] CONSTIPATION; Start 01/15/17 at 09: 30 Docusate Sodium (Colace) 100 mg QHS PRN PO CONSTIPATION Last administered on 08:17; Admin Dose 100 MG; Start 01/15/17 at 09:30 Lactulose (Enulose) 20 gm DAILY PRN PO CONSTIPATION Last administered on 01:45; Admin Dose 20 GM; Start 01/15/17 at 09:30 Senna (Senokot) 1 tab DAILY PO Last administered on 02/03/17 08:26; Admin Dose 1 TAB; Start 01/15/17 at 09:30 Sodium Biphosphate/ Sodium Phosphate (Fleet Enema) 133 ml DAILY PRN [place] CONSTIPATION; Start 01/15/17 at 09:30 Amlodipine Besylate (Norvasc) 10 mg DAILY PO Last administered on 02/03/17 08: 27; Admin Dose 10 MG; Start 01/16/17 at 09:00 Hydralazine HCl (Apresoline) 75 mg TID PO Last administered on 02/03/17 12:15 ; Admin Dose 75 MG; Start 01/16/17 at 09:00 Clonidine (Catapres) 0.1 mg Q6H PRN PO ELEVATED SYSTOLIC BP Last administered on 01/31/17 16:53; Admin Dose 0.1 MG; Start 01/16/17 at 01:30 Polyethylene Glycol (Miralax) 17 gm BID PO Last administered on 02/03/17 08:29 ; Admin Dose 17 GM; Start 01/16/17 at 21:00 Lubiprostone 24 mcg 24 mcg BID PO Last administered on 02/03/17 08:26; Admin Dose 24 MCG; Start 01/17/17 at 09:00 Ceftriaxone Sodium (Rocephin) 50 ml @ 100 mls/hr Q24H IVPB Last administered on 02/02/17 17:39; Admin Dose 100 MLS/HR; Start 01/17/17 at 17:00 Zolpidem Tartrate (Ambien) 5 mg HS PRN PO INSOMNIA Last administered on 00:57; Admin Dose 5 MG; Start 01/17/17 at 21:30 Acetaminophen/ Hydrocodone Bitart ([place] (10/325)) 1 tab Q4H PRN PO 4-6 PAIN Last administered on 02/03/17 08:20; Admin Dose 1 TAB; Start 01/19/17 at 10:00 Oxycodone HCl (Oxycontin) 10 mg Q8H PO Last administered on 02/03/17 12:07; Admin Dose 10 MG; Start 01/19/17 at 12:00 Ondansetron HCl (Zofran Inj) 4 mg Q6H PRN IV NAUSEA AND/OR VOMITING Last administered on 01/22/17 15:33; Admin Dose 4 MG; Start 01/21/17 at 08:30 Nitroglycerin (Nitroglycerin 2% Oint) 1 inch Q6 TD Last administered on 05:43; Admin Dose 1 INCH; Start 01/22/17 at 04:00 Naloxone HCl (Narcan) 0.2 mg Q2M PRN IV RR 8 BREATHS/MIN OR LESS; Start at 11:00 Heparin Sodium (Porcine) 5000 unit 5,000 unit BID SC Last administered on 08:24; Admin Dose 5,000 UNIT; Start 01/25/17 at 09:00 Vancomycin HCl (Vancocin) 250 ml @ 125 mls/hr Q96H IVPB Last administered on 10:55; Admin Dose 125 MLS/HR; Start 01/29/17 at 10:00 Lidocaine (Lidoderm) 1 patch QPM TD Last administered on 02/02/17 20:31; Admin Dose 1 PATCH; Start 01/29/17 at 21:00 Warfarin Sodium (Coumadin) 6 mg DAILY@17 PO Last administered on 02/02/17 18: 41; Admin Dose 6 MG; Start 01/31/17 at 17:00 IV Flush (NS 10 ml) 10 ml PRN PRN IV IV PROTOCOL; Start 02/03/17 at 10:30 ADALID LEO NP Feb 03, 2017 13:04
[2017-02-03 14:00] VITALS: BP 138/64; RESP 20
[2017-02-03] MEDS ORDERED: SOD CHLORIDE 0.9% 100 ML ONE (15:22)
[2017-02-03] MEDS: WARFARIN 3 MG TAB PO SCH (17:32)
[2017-02-03] MEDS: CEFTRIAXONE 2 GM/NS 50 ML IVPB SCH (17:33)
[2017-02-03 20:46] VITALS: BP 144/65; RESP 18
[2017-02-03] MEDS: LIDOCAINE 5% PATCH TD SCH (20:47)
[2017-02-03] MEDS: ATORVASTATIN 80 MG TAB PO SCH (23:08)
[2017-02-04] VITALS (9 sets, daily range): BP systolic 115–156; BP diastolic 61–87; PULSE 65–75; RESP 18–20
[2017-02-04] MEDS: HYDROCODONE/APAP (10/325) TAB PO PRN ×2 (01:49→09:02)
[2017-02-04] MEDS: ACCU-CHEK XX SCH (01:49)
[2017-02-04] MEDS: PANTOPRAZOLE (EC) 40 MG TAB PO SCH (05:14)
[2017-02-04] MEDS: oxyCODONE (CR) 10 MG TAB [oxyCONTIN] PO SCH ×2 (05:15→12:23)
[2017-02-04] MEDS: NITROGLYCERIN 2% 1 GM OINT PKT TD SCH ×3 (05:18→17:34)
[2017-02-04] MEDS: INSULIN ASPART [NOVOLOG] 3 ML PEN SC SCH ×3 (08:00→17:27)
[2017-02-04] MEDS: SEVELAMER 800 MG TAB PO SCH ×3 (08:11→17:27)
[2017-02-04] MEDS: POLYETHYLENE GLYCOL 17 GM PACKET PO SCH (08:11)
[2017-02-04] MEDS: LUBIPROSTONE 24 MCG CAP PO SCH (08:12)
[2017-02-04] MEDS: SENNA TAB PO SCH (08:12)
[2017-02-04] MEDS: ASPIRIN 81 MG TAB PO SCH (08:12)
[2017-02-04] MEDS: METOCLOPRAMIDE 5 MG TAB PO SCH (08:12)
--- NOTE | 2017-02-04 08:16 | PN ---
DATE: 02/04/2017 SUBJECTIVE: The patient is currently having hemodialysis, tolerating well. OBJECTIVE DATA: VITAL SIGNS: Blood pressure is 169/79, temperature 99.3, pulse 82, respirations 20. HEENT: Head is normocephalic. NECK: Supple. HEART: Regular rate. LUNGS: Diminished breath sounds at the base. ABDOMEN: Soft, nontender to palpation. No rebound or guarding. EXTREMITIES: Negative for clubbing, cyanosis. No edema. DERMATOLOGIC: Clean. No rashes. MUSCULOSKELETAL: No joint effusion. NEUROLOGIC: No change in exam. MEDICATIONS: Reviewed. LABORATORY AND DIAGNOSTIC DATA: Reviewed. ASSESSMENT AND PLAN: 1. Discitis L5-S1. Patient is status post transforaminal lumbar interbody fusion. Currently stable. Continue IV antibiotics. Follow up with Infectious Disease. 2. End-stage renal disease. Plan for dialysis today. 3. Hypertension. Continue current blood pressure regimen. 4. Atrial fibrillation. Continue medical management. INR being adjusted by Cardiology. 5. Status post transient ischemic attack. 6. Anemia. Monitor H and H levels. 7. Mineral bone disorder. Continue to monitor calcium and phosphorus levels. 8. Diabetes. Continue Accu-Cheks and insulin sliding scale. 9. Gastrointestinal and deep venous thrombosis prophylaxis. DISPOSITION: The patient has been accepted to acute rehab. Waiting for insurance clearance. Dictated By: Buck Seals DO /saul/monica /Document#: [id number]
[2017-02-04] MEDS: SERTRALINE 50 MG TAB PO SCH (09:02)
[2017-02-04] MEDS: TOLTERODINE 2 MG TAB PO SCH (09:03)
[2017-02-04] MEDS: AMLODIPINE 10 MG TAB PO SCH (09:03)
[2017-02-04] MEDS: METOPROLOL 100 MG TAB PO SCH (09:04)
[2017-02-04] MEDS: HEPARIN 5,000 UNIT/0.5 ML VIAL SC SCH (09:06)
[2017-02-04 10:36] LABS: INR 1.08; PT RATIO 1.1
[2017-02-04] MEDS: CEFTRIAXONE 2 GM/NS 50 ML IVPB SCH (17:26)
[2017-02-04] MEDS: WARFARIN 3 MG TAB PO SCH (17:27)
== END 2017-02-04 19:35 | DRG 28 ==
LOC: E/R 08:42 → MS3 10:35 → TEL 01-13 22:03 → ICU 01-22 14:01 → TEL 01-23 23:27 → PP2 02-01 11:04
PROVIDERS: ADMIT Internal Medicine; ATTEND Internal Medicine
PROC: 5A1D60Z (ICD-10-PCS; 2017-01-13)
PROC: 0ST40ZZ Resection of Lumbosacral Disc, Open Approach (ICD-10-PCS; 2017-01-22)
PROC: 0SG00AJ Fusion of Lumbar Vertebral Joint with Interbody Fusion Device, Posterior Approach, Anterior Column, Open Approach (ICD-10-PCS; principal; 2017-01-22 13:00)
DX: G45.9 Transient cerebral ischemic attack, unspecified (principal); N18.6 End stage renal disease; G82.20 Paraplegia, unspecified; I12.0 Hypertensive chronic kidney disease with stage 5 chronic kidney disease or end stage renal disease; M46.37 Infection of intervertebral disc (pyogenic), lumbosacral region; N39.0 Urinary tract infection, site not specified; M46.27 Osteomyelitis of vertebra, lumbosacral region; M46.34 Infection of intervertebral disc (pyogenic), thoracic region; M46.25 Osteomyelitis of vertebra, thoracolumbar region; D64.9 Anemia, unspecified; E11.9 Type 2 diabetes mellitus without complications; B02.9 Zoster without complications; J44.9 Chronic obstructive pulmonary disease, unspecified; Z99.2 Dependence on renal dialysis; Z79.02 Long term (current) use of antithrombotics/antiplatelets; E78.5 Hyperlipidemia, unspecified; Z86.718 Personal history of other venous thrombosis and embolism; Z86.73 Personal history of transient ischemic attack (TIA), and cerebral infarction without residual deficits; M46.45 Discitis, unspecified, thoracolumbar region; M46.44 Discitis, unspecified, thoracic region; K56.41 Fecal impaction; G89.4 Chronic pain syndrome; B95.2 Enterococcus as the cause of diseases classified elsewhere; Z16.21 Resistance to vancomycin
CPT/HCPCS: 36415; 36569; 70450; 70551; 71010; 72110; 72128; 72131; 72141; 72146; 72148; 72158; 74000; 74176; 76937; 80048; 80061; 80076; 80202; 80307; 81001; 82962; 83036; 83690; 83735; 84100; 84132; 84484; 85025; 85610; 85730; 87040; 87070; 87075; 87081; 87086; 87102; 90935; 92526; 92610; 93005; 93880; 97110; 97116; 97162; 97164; 97168; 97530; A4310; J0690; J0696; J1644; J2270; J2370; J2405; J2710; J2795; J3010; J3370; J7042; J7050; L0639; Q9967

== ENCOUNTER 2017-02-04 19:33 | Inpatient (IN) | payer BC ==
[~2017-02-04] VITALS: Ht 160 cm; Wt 76.4 kg
[~2017-02-04 19:33] MED LIST changes: +ACET-141 PO; +ALBU2.5V3 NEB; -AMLO2.5T78 PO; +AMLO5TAB4 PO; -APIX5TAB PO; +ASCO500C7 PO; -ASPI81TA3 PO; +BISA10SU75 PR; +CHOL400T10 PO; +DIPH25CA6 PO; +DOCU-144 PO; -FURO-109 PO; -GABA300C PO; +GABA300C16 PO; +LACT20SO2 PO; +LOSA50TA6 PO; +METH500T PO; -METO5TAB11 PO; +MULTI PO; +OXYC10TA63 PO; +POLY17PO6 PO; -REPA1TAB14 PO; +SENN-53 PO; -SITA50TA2 PO; -TOLT2TAB5 PO; +VITA1TAB83 PO; +ZINC220T PO; -ZOLP5TAB7 PO
[2017-02-04 20:16] VITALS: BP 134/63; RESP 19
[2017-02-04] MEDS ORDERED: NALOXONE (0.4 MG/ML) INJ IV PRN (21:00)
[2017-02-04] MEDS ORDERED: DOCUSATE SODIUM 100 MG CAP PO PRN (21:00)
[2017-02-04] MEDS ORDERED: LACTULOSE 30ML CUP PO PRN (21:00)
[2017-02-04] MEDS ORDERED: BISACODYL 10 MG SUPP PR PRN (21:00)
[2017-02-04] MEDS ORDERED: ONDANSETRON 4 MG INJ IV PRN (21:00)
[2017-02-04] MEDS: TOLTERODINE 2 MG TAB PO SCH (21:15)
[2017-02-04] MEDS ORDERED: GLUCOSE GEL 15 GRAM TUBE PO PRN ×2 (21:30)
[2017-02-04] MEDS ORDERED: DEXTROSE 50% 50 ML SYRINGE IV PRN ×2 (21:30)
[2017-02-04] MEDS ORDERED: NACL 0.9% 3 ML SYG IV SCH (21:30)
[2017-02-04] MEDS ORDERED: GLUCOSE GEL 15 GRAM TUBE BUCCAL PRN (21:30)
[2017-02-04] MEDS ORDERED: VANCOMYCIN IV PER PHARMACY XX SCH (21:30)
[2017-02-04] MEDS: INSULIN ASPART [NOVOLOG] 3 ML PEN SC SCH (21:30)
[2017-02-04] MEDS ORDERED: NA PHOSPHATE/BIPHOS 133 ML ENEMA PR PRN (21:30)
[2017-02-04] MEDS ORDERED: GLUCAGON 1 MG INJ IM PRN (21:30)
[2017-02-04] MEDS: ATORVASTATIN 80 MG TAB PO SCH (22:14)
[2017-02-04] MEDS: METOPROLOL 100 MG TAB PO SCH (22:15)
[2017-02-04] MEDS: METOCLOPRAMIDE 10 MG TAB PO SCH (22:16)
[2017-02-04] MEDS: LIDOCAINE 5% PATCH TD SCH (22:16)
[2017-02-04] MEDS: POLYETHYLENE GLYCOL 17 GM PACKET PO SCH (22:17)
[2017-02-04] MEDS: oxyCODONE (CR) 10 MG TAB [oxyCONTIN] PO SCH (22:18)
[2017-02-04] MEDS: LUBIPROSTONE 24 MCG CAP PO SCH (22:24)
[2017-02-04] MEDS: HEPARIN 5,000 UNIT/0.5 ML VIAL SC SCH (22:45)
[2017-02-04] MEDS: ZOLPIDEM 5 MG TAB PO PRN (22:46)
[2017-02-05 00:16] VITALS: Ht 160 cm; Wt 76.4 kg
[2017-02-05] MEDS: NITROGLYCERIN 2% 1 GM OINT PKT TD SCH ×4 (00:58→17:43)
[2017-02-05] MEDS: morphine 2 MG INJ IV PRN ×2 (01:06→08:13)
[2017-02-05] MEDS: ACCU-CHEK XX SCH (02:00)
[2017-02-05 02:58] VITALS: BP 150/70; RESP 19
[2017-02-05] MEDS: PANTOPRAZOLE (EC) 40 MG TAB PO SCH (06:09)
[2017-02-05] MEDS: oxyCODONE (CR) 10 MG TAB [oxyCONTIN] PO SCH ×3 (06:10→21:28)
[2017-02-05 07:00] VITALS: BP 147/76; RESP 18
[2017-02-05] MEDS: SEVELAMER 800 MG TAB PO SCH ×3 (07:35→17:34)
[2017-02-05] MEDS: INSULIN ASPART [NOVOLOG] 3 ML PEN SC SCH ×4 (07:35→21:00)
[2017-02-05 07:36] LABS: BASOPHIL # 0.1 10^3/ul (0.0-0.1); EOSINOPHILS # 0.4 10^3/ul (0.0-0.5); EOSINOPHILS % 3.9 % (0.0-7.0); HEMOGLOBIN 8.7 g/dl (12.0-16.0); LYMPHOCYTES # 2.9 10^3/ul (0.8-2.9); LYMPHOCYTES % 30.2 % (15.0-51.0); MEAN CORPUSCULAR HGB CONC 31.1 g/dl (32.0-37.0); MEAN CORPUSCULAR VOLUME 96.6 fl (82.0-101.0); MEAN PLATELET VOLUME 8.7 fl (7.4-10.4); MONOCYTE # 0.8 10^3/ul (0.3-0.9); MONOCYTES % 7.8 % (0.0-11.0); NEUTROPHIL # 5.5 10^3/ul (1.6-7.5); NEUTROPHILS % 56.4 % (39.0-77.0); PLATELET COUNT 350 10^3/UL (140-415); RED CELL DISTRIBUTION WIDTH 15.4 % (11.5-14.5); WHITE BLOOD COUNT 9.8 10^3/ul (4.8-10.8)
[2017-02-05 07:56] VITALS: BP 147/76; RESP 18
[2017-02-05 08:06] VITALS: BP 147/76; RESP 18
[2017-02-05 08:10] LABS: ALBUMIN 2.9 g/dl (3.3-4.9); ALBUMIN/GLOBULIN RATIO 0.93; CALCIUM 8.5 mg/dl (8.4-10.2); CREATININE 2.48 mg/dl (0.44-1.00); POTASSIUM 3.9 mmol/L (3.5-5.1)
[2017-02-05] MEDS: LUBIPROSTONE 24 MCG CAP PO SCH ×2 (09:00→21:27)
[2017-02-05] MEDS: TOLTERODINE 2 MG TAB PO SCH ×2 (09:31→21:27)
[2017-02-05] MEDS: METOCLOPRAMIDE 10 MG TAB PO SCH ×2 (09:31→21:29)
[2017-02-05] MEDS: ASPIRIN 81 MG TAB PO SCH (09:32)
[2017-02-05] MEDS: METOPROLOL 100 MG TAB PO SCH ×2 (09:33→21:29)
[2017-02-05] MEDS: SERTRALINE 50 MG TAB PO SCH (09:34)
[2017-02-05] MEDS: SENNA TAB PO SCH (09:34)
[2017-02-05] MEDS: POLYETHYLENE GLYCOL 17 GM PACKET PO SCH ×2 (09:34→21:00)
[2017-02-05] MEDS: AMLODIPINE 10 MG TAB PO SCH (09:34)
[2017-02-05] MEDS: HEPARIN 5,000 UNIT/0.5 ML VIAL SC SCH ×2 (09:40→21:36)
--- NOTE | 2017-02-05 10:24 | HP ---
DATE OF ADMISSION: 02/04/2017 CHIEF COMPLAINT: Debility status post L5-S1 surgery. HISTORY OF PRESENT ILLNESS: The patient is a 51-year-old female with a past medical history of end-stage renal disease, history of CVA, diabetes, diabetic neuropathy, coronary disease, dyslipidemia, hypertension presents to [facility] with slurred speech. The patient upon arrival to [facility] was being evaluated for TIA. The patient was seen by urologist Dr. Hart, was ruled out for stroke. The patient then however had developed severe back pain. Had an MRI of the spine, which showed evidence of diskitis. The patient also had radicular pain, was seen by Neurosurgery. The patient had a TLIF of the L5-S1 with ISF placement. Following the surgery the patient's radiculopathy improved. The patient was also seen by infectious disease and started on antibiotics for a course of 6 weeks. The patient; however, had a significant decline in her premorbid state and was transferred to [facility] for continued care. PAST MEDICAL HISTORY: 1. End-stage renal disease. 2. Diabetes. 3. Hypertension. 4. CVA. 5. COPD. 6. Osteomyelitis. 7. History of cognitive decline. 8. Anxiety disorder. 9. Hypertension. PAST SURGICAL HISTORY: 1. Status post thoracic spine laminectomy with epidural drainage. 2. Status post PermCath placement. 3. Status post AV fistula placement. FAMILY HISTORY: Noncontributory. SOCIAL HISTORY: No smoking, drug or alcohol use. MEDICATIONS: The patient's medications have been reviewed and reconciled. REVIEW OF SYSTEMS: Fourteen point review of systems conducted. Pertinent positives stated in HPI, otherwise negative. OBJECTIVE DATA: VITAL SIGNS: Blood pressure 130/65, respirations 18, pulse 70, temperature 98.8. HEENT: Head is normocephalic. NECK: Supple. HEART: Regular rate. LUNGS: Diminished breath sounds base. ABDOMEN: Soft, nontender to palpation. No rebound or guarding. EXTREMITIES: Negative for clubbing, cyanosis. No edema. DERMATOLOGIC: Clean. No rashes. MUSCULOSKELETAL: No joint effusion. NEUROLOGIC: No change in exam. MEDICATIONS: Reviewed. LABORATORY: Shows white count 9.8, hemoglobin 8.7, hematocrit 28.9, platelet count 350. The patient's chemistries pending. ASSESSMENT AND PLAN: 1. Diskitis L5-S1 with radiculopathy. Patient is status post transforaminal lumbar interbody fusion. The patient is currently stable. Continue current antibiotic regimen for 6 weeks. We will follow up with Neurosurgery. Follow up Infectious Disease. 2. Chronic back pain, improved. Continue current pain regimen. 3. End-stage renal disease. Plan for hemodialysis tomorrow. 4. Hypertension. Continue current blood pressure regimen. 5. Atrial fibrillation. Continue current medical management. Continue Coumadin. Follow up with INR. The patient is being seen by Cardiology. 6. Transient ischemic attack, resolved. Continue medical management. 7. Anemia. Monitor. Monitor H and H levels. 8. Metabolic bone disorder. Continue to monitor calcium and phosphorus levels. 9. Diabetes. Continue Accu-Cheks and sliding scale. 10. Gastrointestinal and deep venous thrombosis prophylaxis. Dictated By: Buck Seals DO /saul/monica /Document#: [id number]
[2017-02-05 12:50] LABS: INR 1.12; PROTIME 14.4 Sec (12.2-14.2); PT RATIO 1.1
[2017-02-05 16:59] LABS: ADD UMIC YES; UR ASCORBIC ACID NEGATIVE (NEGATIVE); UR BACTERIA FEW /HPF (NONE SEEN); UR BILIRUBIN (Dip) NEGATIVE (NEGATIVE); UR BLOOD (Dip) NEGATIVE (NEGATIVE); UR BUDDING YEAST MANY /HPF (NONE SEEN); UR CLARITY TURBID (CLEAR); UR COLOR AMBER (YELLOW); UR GLUCOSE (Dip) 1+ mg/dL (NEGATIVE); UR KETONES (Dip) NEGATIVE (NEGATIVE); UR LEUKOCYTE ESTERASE (Dip) 2+ Leu/ul (NEGATIVE); UR MUCUS FEW /HPF (NONE SEEN); UR NITRITE (Dip) NEGATIVE (NEGATIVE); UR RBC 24 /HPF (0-5); UR SPECIFIC GRAVITY (Dip) 1.017 (1.003-1.030); UR SQUAMOUS EPITHELIAL CELL MANY /HPF (FEW); UR TOTAL PROTEIN (Dip) 2+ mg/dl (NEGATIVE); UR UROBILINOGEN (Dip) NEGATIVE (NEGATIVE)
[2017-02-05] MEDS: WARFARIN 3 MG TAB PO SCH (17:34)
[2017-02-05] MEDS: CEFTRIAXONE 2 GM/NS 50 ML IVPB SCH (17:50)
[2017-02-05 20:00] VITALS: BP 147/67; RESP 18
[2017-02-05] MEDS: ATORVASTATIN 80 MG TAB PO SCH (21:28)
[2017-02-05] MEDS: LIDOCAINE 5% PATCH TD SCH (21:38)
--- NOTE | 2017-02-05 21:40 | CONS ---
DATE OF ADMISSION: 02/04/2017 DATE OF CONSULTATION: 02/05/2017 REHABILITATION POST ADMISSION PHYSICIAN EVALUATION: Rehabilitation Impairment Category. Other orthopedic disorder with lumbar radiculopathy and diskitis, status post transforaminal interbody fusion. ACTIVE COMORBIDITIES: 1. TIA. 2. End-stage renal disease, on hemodialysis. 3. Diabetes mellitus. 4. Diabetic nephropathy. 5. Coronary artery disease. 6. Hyperlipidemia. 7. Anemia. 8. Paroxysmal atrial fibrillation. 9. Mineral bone disease. 10. Impairments in self care and mobility. HISTORY OF PRESENT ILLNESS: The patient is a 51-year-old female with a history of multiple medical comorbidities, who initially had a hospitalization for new onset dysarthria and weakness that the patient felt likely to have a TIA. Further workup did reveal diskitis and osteomyelitis in addition to radiculopathy, and patient underwent lumbar transforaminal interbody fusion. Patient's hospital course has been notable for continued dialysis for her end-stage renal disease, VRE, pain, in addition to significant impairments in self care and mobility as compared to baseline. The patient has been cleared to transfer to the rehabilitation unit for comprehensive interdisciplinary rehabilitation care. FUNCTIONAL HISTORY: Prior to the recent events, she was at an independent level for self care mobility tasks. Currently, she requires moderate to maximal assist for self care and mobility tasks. I have reviewed the preadmission screen and patient's current functional status, it is consistent with the preadmission screen. SOCIAL HISTORY: Patient lives at home and hopes to return there upon discharge. PAST MEDICAL HISTORY: 1. End-stage renal disease, on dialysis. 2. Diabetes mellitus. 3. Diabetic neuropathy. 4. CVA. 5. Hypertension. 6. Atrial fibrillation. 7. Mineral bone disease. 8. Hyperlipidemia. CURRENT MEDICATIONS: 1. [place] p.r.n. 2. Norvasc 10 mg p.o. q.day. 3. Aspirin 162 mg p.o. q.day. 4. Lipitor 80 mg p.o. nightly. 5. Rocephin IV. 6. Insulin sliding scale. 7. Colace 100 mg p.o. nightly. 8. Apresoline 75 mg p.o. t.i.d. 9. Lidoderm patch topically. 10. Amitiza at 24 mcg p.o. b.i.d. 11. Lopressor 100 mg p.o. b.i.d. 12. OxyContin p.r.n. 13. Senokot 1 p.o. nightly. 14. Zoloft 50 mg p.o. q.day. 15. Renagel 800, mg with meals. 16. Vancomycin. 17. Coumadin. 18. Ambien nightly. ALLERGIES: CODEINE. PHYSICAL EXAMINATION: VITAL SIGNS: Patient is currently afebrile with stable vital signs. HEENT: The extraocular motion is intact. Oropharynx clear. NECK: Supple. LUNGS: Clear anteriorly. HEART: S1, S2. ABDOMEN: Soft, nontender. Positive bowel sounds. NEUROLOGICALLY: She is awake, alert, and oriented times 3. She can follow simple 1 step commands. Cranial nerves are grossly intact. She has antigravity strength in bilateral upper extremity and lower extremity. PLAN: The patient has been admitted for comprehensive interdisciplinary acute rehabilitation and is anticipated to tolerate 3 hours of daily therapy in divided doses for at least 5 out of 7 days a week. The treatment plan will include, 1. Physical therapy to focus on bed mobility, transfers and household ambulation with goal of having patient reach standby assist level. 2. Occupational therapy to focus on hygiene, grooming, dressing, bathing and toileting activities with goal of having patient reach a standby assist level. 3. Rehabilitation nursing for carry over of therapeutic interventions. The goal of continent to bowel and bladder, and the goal of pain adequately managed on oral medications. REHABILITATION BARRIER: Pain. Intervention for barrier comprehensive interdisciplinary approach. Estimated length of stay. 2 weeks. Disposition goal. Home. I acknowledge I performed a full physical examination on this patient within 24 hours of admission to the rehabilitation unit and believe the patient is a good candidate for comprehensive interdisciplinary rehabilitation care and is anticipated to make reasonable goals in a reasonable period of time as outlined above. Dictated By: Alexandr Cole MD /saul/jenelle /Document#: [id number]
[2017-02-06] VITALS (14 sets, daily range): BP systolic 138–186; BP diastolic 62–80; PULSE 70–78; RESP 16–20
[2017-02-06] MEDS: NITROGLYCERIN 2% 1 GM OINT PKT TD SCH ×4 (00:36→18:18)
[2017-02-06] MEDS: morphine 2 MG INJ IV PRN ×2 (00:41→17:36)
[2017-02-06] MEDS: ACCU-CHEK XX SCH (02:00)
[2017-02-06] MEDS: PANTOPRAZOLE (EC) 40 MG TAB PO SCH (06:21)
[2017-02-06] MEDS: oxyCODONE (CR) 10 MG TAB [oxyCONTIN] PO SCH ×3 (06:22→21:45)
[2017-02-06] MEDS: INSULIN ASPART [NOVOLOG] 3 ML PEN SC SCH ×4 (07:35→20:41)
[2017-02-06] MEDS: AMLODIPINE 10 MG TAB PO SCH ×2 (09:00→15:36)
[2017-02-06] MEDS: METOPROLOL 100 MG TAB PO SCH ×3 (09:00→21:45)
[2017-02-06] MEDS: POLYETHYLENE GLYCOL 17 GM PACKET PO SCH ×2 (09:00→20:36)
[2017-02-06] MEDS: SERTRALINE 50 MG TAB PO SCH (09:01)
[2017-02-06] MEDS: TOLTERODINE 2 MG TAB PO SCH ×2 (09:01→20:36)
[2017-02-06] MEDS: SENNA TAB PO SCH (09:01)
[2017-02-06] MEDS: SEVELAMER 800 MG TAB PO SCH ×3 (09:01→17:29)
[2017-02-06] MEDS: ASPIRIN 81 MG TAB PO SCH (09:02)
[2017-02-06] MEDS: LUBIPROSTONE 24 MCG CAP PO SCH ×2 (09:02→20:36)
[2017-02-06] MEDS: METOCLOPRAMIDE 10 MG TAB PO SCH ×2 (09:06→20:36)
[2017-02-06] MEDS: HEPARIN 5,000 UNIT/0.5 ML VIAL SC SCH ×2 (09:07→20:36)
[2017-02-06] MEDS: HYDROCODONE/APAP (10/325) TAB PO PRN (09:18)
[2017-02-06 09:32] LABS: BASOPHIL # 0.1 10^3/ul (0.0-0.1); BASOPHILS % 0.9 % (0.0-2.0); EOSINOPHILS # 0.4 10^3/ul (0.0-0.5); EOSINOPHILS % 4.4 % (0.0-7.0); HEMATOCRIT 30.4 % (37.0-47.0); HEMOGLOBIN 9.5 g/dl (12.0-16.0); LYMPHOCYTES # 2.2 10^3/ul (0.8-2.9); LYMPHOCYTES % 25.9 % (15.0-51.0); MEAN CORPUSCULAR HEMOGLOBIN 30.7 pg (29.0-33.0); MEAN CORPUSCULAR HGB CONC 31.3 g/dl (32.0-37.0); MEAN CORPUSCULAR VOLUME 98.4 fl (82.0-101.0); MEAN PLATELET VOLUME 8.3 fl (7.4-10.4); MONOCYTE # 0.6 10^3/ul (0.3-0.9); MONOCYTES % 6.9 % (0.0-11.0); NEUTROPHIL # 5.2 10^3/ul (1.6-7.5); NEUTROPHILS % 61.3 % (39.0-77.0); PLATELET COUNT 376 10^3/UL (140-415); RED BLOOD COUNT 3.09 10^6/ul (4.20-5.40); RED CELL DISTRIBUTION WIDTH 15.4 % (11.5-14.5); WHITE BLOOD COUNT 8.5 10^3/ul (4.8-10.8)
--- NOTE | 2017-02-06 09:40 | CONS ---
DATE OF ADMISSION: 02/04/2017 DATE OF CONSULTATION: 02/05/2017 REASON FOR CONSULTATION: Atrial fibrillation, history of CVA. CHIEF COMPLAINT: Debility. HISTORY OF PRESENT ILLNESS: Thank you for this referral. the patient from extensive review of the old chart. The patient also well known to me on previous admissions to the hospital. This is a pleasant 51-year-old female with multiple complex medical history who was admitted to rehab facility for rehab. The patient has history of paroxysmal atrial fibrillation, but recently has remained in sinus rhythm. She has had multiple complicated medical history, including history of multiple TIA and CVA as well as severe back pain and osteoarthritis, and underwent laminectomy and spinal surgery recently. Patient at rehab for evaluation. PAST MEDICAL HISTORY: Paroxysmal atrial fibrillation, history of CVA about 2 years ago at least. Previous cardiology note is assessed to be cardioembolic stroke and has been placed on Coumadin since. History of diabetes, diabetic nephropathy, renal failure on dialysis, dyslipidemia, and hypertension. Also has been recently at [facility] with a fever, back pain, weakness, lower extremity numbness and paresthesia. At that time was found to have diskitis, osteomyelitis of T7, T8. She has had local drainage analysis, planned laminectomy done. The patient was noted to have an infection again and neurosurgical intervention done again at [facility] within the past few weeks. The patient also with history of COPD, anxiety disorder, history of smoking. PAST SURGICAL HISTORY: History of thoracic spine laminectomy with analysis drainage, Perma-Cath placement, spinal surgery. FAMILY HISTORY: No reported history of coronary artery disease. SOCIAL HISTORY: Patient has smoked in the past, currently does not, has used marijuana as well. MEDICATIONS: Reviewed. REVIEW OF SYSTEMS: Review of systems as above mentioned. Positive for back pain, but is improving. Denies any palpitations at this time. PHYSICAL EXAMINATION: VITAL SIGNS: Temperature 98, heart rate 74, blood pressure 115/64, respiratory rate 18, saturation 99 percent. GENERAL APPEARANCE/HEENT: Normocephalic, atraumatic. Obese, in no acute distress. Pupils are equal. CARDIOVASCULAR: Regular rate and rhythm. Systolic murmur. PULMONARY: Anteriorly with no wheezes. GASTROINTESTINAL: Obese, soft, nontender. EXTREMITIES: With edema. NEUROLOGIC: Awake, alert. PSYCHIATRIC: Calm and pleasant. SKIN: There are multiple tattoos. LABORATORY DIAGNOSTIC DATA: Review of the old chart showed the most recent echocardiogram done on the December 08, 2016, showed ejection fraction of 55 percent. PA pressure was about 42 mmHg. Most recent labs show WBC 9, hemoglobin 8.3, platelets 350,00. Sodium 137, potassium 3.9, BUN 25, creatinine 2.48. INR yesterday was 1. ASSESSMENT: 1. Paroxysmal atrial fibrillation. Currently appears to be remaining in sinus rhythm. 2. History of multiple cerebrovascular accidents (CVA). 3. Renal failure on dialysis. 4. Hypertension. 5. Chronic obstructive pulmonary disease (COPD). 6. History of spinal infection and surgery. 7. Anemia. 8. Dyslipidemia. 9. Diabetes. PLAN: Coumadin has been resumed, and we will continue to follow INR and adjust it. We will continue with the current blood pressure medications. Dialysis will be continued as per renal. Physical therapy and rehabilitation. Antibiotic as per Internal Medicine and ID recommendations. Once the INR is therapeutic, aspirin will be discontinued as well. Thank you for this referral. Continue to follow along with you. Dictated By: Silvestre Escobedo MD /saul/ty /Document#: [id number] CC: Buck Seals DO;*End*
--- NOTE | 2017-02-06 09:47 | CONS ---
Date/Time of Note Date/Time of Note DATE: 02/06/17 TIME: 09:47 Consult Date/Type/Reason Admit Date/Time Feb 04, 2017 at 20:01 Initial Consult Date Type of Consultation: nephrology Subjective planned hd today no new events Objective Vital Signs Date Time Temp Pulse Resp B/P Pulse Ox O2 Delivery O2 Flow Rate FiO2 02/06/17 09:11 74 16 140/65 98 Room Air 02/06/17 07:30 98.4 Intake and Output 02/05/17 02/05/17 02/06/17 15:00 23:00 07:00 Intake Total 850 ml 700 ml Output Total 400 ml 1 ml Balance 450 ml 699 ml Exam HEENT: Head is normocephalic. NECK: Supple. HEART: Regular rate. LUNGS: Diminished breath sounds base. ABDOMEN: Soft, nontender to palpation. No rebound or guarding. EXTREMITIES: Negative for clubbing, cyanosis. No edema. DERMATOLOGIC: Clean. No rashes. MUSCULOSKELETAL: No joint effusion. NEUROLOGIC: No change in exam. Results/Medications Result Diagram: 02/06/17 0858 02/05/17 0625 Results 24 hrs Laboratory Tests Test 02/05/17 11:57 02/05/17 12:13 02/05/17 15:35 02/05/17 17:29 Prothrombin Time 14.4 H Prothrombin Time Ratio 1.1 INR International Normalized Ratio 1.12 Bedside Glucose 90 205 Urine Color TAMELA Urine Clarity TURBID A Urine pH 8.0 Urine Specific [place] 1.017 Urine Ketones NEGATIVE Urine Nitrite NEGATIVE Urine Bilirubin NEGATIVE Urine Urobilinogen NEGATIVE Urine Leukocyte Esterase 2+ H Urine Microscopic RBC 24 H Urine Microscopic WBC > 182 H Urine Squamous Epithelial Cells MANY A Urine Bacteria FEW A Urine Mucus FEW A Urine Yeast (Budding) MANY A Urine Hemoglobin NEGATIVE Urine Glucose 1+ H Urine Total Protein 2+ H Test 02/05/17 21:40 02/06/17 07:52 02/06/17 08:58 Bedside Glucose 125 85 White Blood Count 8.5 Red Blood Count 3.09 L Hemoglobin 9.5 L Hematocrit 30.4 L Mean Corpuscular Volume 98.4 Mean Corpuscular Hemoglobin 30.7 Mean Corpuscular Hemoglobin Concent 31.3 L Red Cell Distribution Width 15.4 H Platelet Count 376 Mean Platelet Volume 8.3 Neutrophils % 61.3 Lymphocytes % 25.9 Monocytes % 6.9 Eosinophils % 4.4 Basophils % 0.9 Nucleated Red Blood Cells % 0.0 Neutrophils # 5.2 Lymphocytes # 2.2 Monocytes # 0.6 Eosinophils # 0.4 Basophils # 0.1 Nucleated Red Blood Cells # 0.0 Medications Current Medications Diagnostic Test (Pha) (Accu-Chek) 1 ea 02 XX ; Start 02/05/17 at 02:00 Amlodipine Besylate (Norvasc) 10 mg DAILY PO Last administered on 02/05/17 09: 34; Admin Dose 10 MG; Start 02/05/17 at 09:00 Acetaminophen/ Hydrocodone Bitart ([place] (10/325)) 1 tab Q4H PRN PO 4-6 PAIN Last administered on 02/06/17 09:18; Admin Dose 1 TAB; Start 02/04/17 at 21:00 Aspirin (Aspirin) 162 mg DAILY PO Last administered on 02/06/17 09:02; Admin Dose 162 MG; Start 02/05/17 at 09:00 Atorvastatin Calcium (Lipitor) 80 mg QHS PO Last administered on 02/05/17 21: 28; Admin Dose 80 MG; Start 02/04/17 at 21:00 Bisacodyl 10 mg 10 mg Q24H PRN [place] CONSTIPATION; Start 02/04/17 at 21:00 Ceftriaxone Sodium (Rocephin) 50 ml @ 100 mls/hr Q24H IVPB Last administered on 02/05/17 17:50; Admin Dose 100 MLS/HR; Start 02/05/17 at 17:00 Clonidine (Catapres) 0.1 mg Q6H PRN PO ELEVATED SYSTOLIC BP; Start 02/04/17 at 21:00 Docusate Sodium (Colace) 100 mg QHS PRN PO CONSTIPATION; Start 02/04/17 at 21: 00 Heparin Sodium (Porcine) (Heparin (5000 Units/0.5 ml)) 5,000 unit BID SC Last administered on 02/06/17 09:07; Admin Dose 5,000 UNIT; Start 02/04/17 at 21:00 Hydralazine HCl (Apresoline) 75 mg TID PO Last administered on 02/05/17 21:45 ; Admin Dose 75 MG; Start 02/04/17 at 21:00 Lactulose (Enulose) 20 gm DAILY PRN PO CONSTIPATION; Start 02/04/17 at 21:00 Lidocaine (Lidoderm) 1 patch QPM TD Last administered on 02/05/17 21:38; Admin Dose 1 PATCH; Start 02/04/17 at 21:00 Lubiprostone (Amitiza) 24 mcg BID PO Last administered on 02/06/17 09:02; Admin Dose 24 MCG; Start 02/04/17 at 21:30 Metoclopramide HCl (Reglan) 5 mg BID PO Last administered on 02/06/17 09:06; Admin Dose 5 MG; Start 02/04/17 at 21:00 Metoprolol Tartrate (Lopressor) 100 mg BID PO Last administered on 02/05/17 21 :29; Admin Dose 100 MG; Start 02/04/17 at 21:00 Morphine Sulfate (morphine) 2 mg Q3H PRN IV PAIN LEVEL 6-10 Last administered on 02/06/17 00:41; Admin Dose 2 MG; Start 02/04/17 at 21:00 Naloxone HCl (Narcan) 0.2 mg Q2M PRN IV RR 8 BREATHS/MIN OR LESS; Start at 21:00 Nitroglycerin (Nitroglycerin 2% Oint) 1 inch Q6 TD Last administered on 06:22; Admin Dose 1 INCH; Start 02/05/17 at 00:00 Ondansetron HCl (Zofran Inj) 4 mg Q6H PRN IV NAUSEA AND/OR VOMITING; Start at 21:00 Oxycodone HCl (Oxycontin) 10 mg Q8 PO Last administered on 02/06/17 06:22; Admin Dose 10 MG; Start 02/04/17 at 22:00 Pantoprazole (Protonix Tab) 40 mg DAILY@06 PO Last administered on 02/06/17 06 :21; Admin Dose 40 MG; Start 02/05/17 at 06:00 Polyethylene Glycol (Miralax) 17 gm BID PO Last administered on 02/05/17 09:34 ; Admin Dose 17 GM; Start 02/04/17 at 21:00 IV Flush (NS 10 ml) 10 ml PRN PRN IV IV PROTOCOL Last administered on 00:41; Admin Dose 10 ML; Start 02/04/17 at 21:30 Senna (Senokot) 1 tab DAILY PO Last administered on 02/06/17 09:01; Admin Dose 1 TAB; Start 02/05/17 at 09:00 Sertraline HCl (Zoloft) 50 mg DAILY PO Last administered on 02/06/17 09:01; Admin Dose 50 MG; Start 02/05/17 at 09:00 Sodium Biphosphate/ Sodium Phosphate (Fleet Enema) 133 ml DAILY PRN [place] CONSTIPATION; Start 02/04/17 at 21:30 Tolterodine Tartrate 2 mg 2 mg BID PO Last administered on 02/06/17 09:01; Admin Dose 2 MG; Start 02/04/17 at 21:15 Vancomycin HCl (Vancocin) 250 ml @ 125 mls/hr Q96H IVPB ; Start 02/06/17 at 10: 00 Warfarin Sodium (Coumadin) 6 mg DAILY@17 PO Last administered on 02/05/17 17: 34; Admin Dose 6 MG; Start 02/05/17 at 17:00 Zolpidem Tartrate (Ambien) 5 mg HS PRN PO INSOMNIA Last administered on 22:46; Admin Dose 5 MG; Start 02/04/17 at 21:30 Miscellaneous Information 1 ea NOTE XX ; Start 02/04/17 at 21:30 Glucose (Glutose) 15 gm Q15M PRN PO DECREASED GLUCOSE; Start 02/04/17 at 21:30 Glucose (Glutose) 22.5 gm Q15M PRN PO DECREASED GLUCOSE; Start 02/04/17 at 21: 30 Dextrose (D50w Syringe) 25 ml Q15M PRN IV DECREASED GLUCOSE; Start 02/04/17 at 21:30 Dextrose (D50w Syringe) 50 ml Q15M PRN IV DECREASED GLUCOSE; Start 02/04/17 at 21:30 Glucagon (Glucagen) 1 mg Q15M PRN IM DECREASED GLUCOSE; Start 02/04/17 at 21:30 Glucose (Glutose) 15 gm Q15M PRN BUCCAL DECREASED GLUCOSE; Start 02/04/17 at 21 :30 Assessment/Plan Chief Complaint/Hosp Course 1. Diskitis L5-S1 with radiculopathy. Patient is status post transforaminal lumbar interbody fusion. The patient is currently stable. Continue current antibiotic regimen for 6 weeks. We will follow up with Neurosurgery. Follow up Infectious Disease. 2. Chronic back pain, improved. Continue current pain regimen. 3. End-stage renal disease. Plan for hemodialysis today 4. Hypertension. Continue current blood pressure regimen. 5. Atrial fibrillation. Continue current medical management. Continue Coumadin. Follow up with INR. The patient is being seen by Cardiology. 6. Transient ischemic attack, resolved. Continue medical management. 7. Anemia. Monitor. Monitor H and H levels. 8. Metabolic bone disorder. Continue to monitor calcium and phosphorus levels. 9. Diabetes. Continue Accu-Cheks and sliding scale. 10. Gastrointestinal and deep venous thrombosis prophylaxis. Problems: AMBREEN BAUGH MD Feb 06, 2017 09:47
[2017-02-06 09:50] LABS: CALCIUM 8.8 mg/dl (8.4-10.2); CREATININE 3.06 mg/dl (0.44-1.00); MAGNESIUM 1.7 mg/dl (1.7-2.5); PHOSPHORUS 4.7 mg/dl (2.5-4.9); POTASSIUM 4.4 mmol/L (3.5-5.1)
[2017-02-06] MEDS ORDERED: VANCOMYCIN 1 GM in NS 250 ML IVPB SCH (10:00)
[2017-02-06] MEDS: CEFTRIAXONE 2 GM/NS 50 ML IVPB SCH (16:29)
[2017-02-06] MEDS: WARFARIN 3 MG TAB PO SCH (16:29)
[2017-02-06] MEDS: ATORVASTATIN 80 MG TAB PO SCH (20:36)
[2017-02-06] MEDS: LIDOCAINE 5% PATCH TD SCH (20:37)
[2017-02-07] MEDS: HYDROCODONE/APAP (10/325) TAB PO PRN ×2 (00:34→09:35)
[2017-02-07] MEDS: ACCU-CHEK XX SCH (01:33)
[2017-02-07 02:00] VITALS: BP 138/69; RESP 18
[2017-02-07] MEDS: oxyCODONE (CR) 10 MG TAB [oxyCONTIN] PO SCH ×3 (06:42→21:28)
[2017-02-07] MEDS: PANTOPRAZOLE (EC) 40 MG TAB PO SCH (06:42)
[2017-02-07] MEDS: NITROGLYCERIN 2% 1 GM OINT PKT TD SCH ×4 (06:43→17:25)
[2017-02-07 07:00] VITALS: BP 164/71; RESP 18
[2017-02-07 07:26] LABS: INR 1.21; PROTIME 15.4 Sec (12.2-14.2); PT RATIO 1.2
[2017-02-07] MEDS: INSULIN ASPART [NOVOLOG] 3 ML PEN SC SCH ×4 (07:35→21:00)
[2017-02-07] MEDS: LUBIPROSTONE 24 MCG CAP PO SCH ×2 (08:46→21:27)
[2017-02-07] MEDS: TOLTERODINE 2 MG TAB PO SCH ×2 (08:46→21:28)
[2017-02-07] MEDS: SENNA TAB PO SCH (08:46)
[2017-02-07] MEDS: SERTRALINE 50 MG TAB PO SCH (08:46)
[2017-02-07] MEDS: ASPIRIN 81 MG TAB PO SCH (08:47)
[2017-02-07] MEDS: METOCLOPRAMIDE 10 MG TAB PO SCH ×2 (08:47→21:27)
[2017-02-07] MEDS: SEVELAMER 800 MG TAB PO SCH ×3 (08:47→17:24)
[2017-02-07] MEDS: AMLODIPINE 10 MG TAB PO SCH (08:47)
[2017-02-07] MEDS: METOPROLOL 100 MG TAB PO SCH ×2 (08:48→21:27)
[2017-02-07] MEDS: POLYETHYLENE GLYCOL 17 GM PACKET PO SCH ×2 (08:48→21:29)
[2017-02-07] MEDS: HEPARIN 5,000 UNIT/0.5 ML VIAL SC SCH ×2 (08:49→21:35)
[2017-02-07 08:55] VITALS: BP 160/64; PULSE 70; RESP 16
[2017-02-07] MEDS ORDERED: LEVOFLOXACIN 500 MG TAB PO ONE (09:30)
--- NOTE | 2017-02-07 10:06 | CONS ---
Date/Time of Note Date/Time of Note DATE: 02/07/17 TIME: 10:05 Consult Date/Type/Reason Admit Date/Time Feb 04, 2017 at 20:01 Type of Consultation: nephrology Subjective s/p hd yesterday x 1.5 hours only. no new c/o. Exam HEENT: Head is normocephalic. NECK: Supple. HEART: Regular rate. LUNGS: Diminished breath sounds base. ABDOMEN: Soft, nontender to palpation. No rebound or guarding. EXTREMITIES: Negative for clubbing, cyanosis. No edema. DERMATOLOGIC: Clean. No rashes. MUSCULOSKELETAL: No joint effusion. NEUROLOGIC: No change in exam. Objective Vital Signs Date Time Temp Pulse Resp B/P Pulse Ox O2 Delivery O2 Flow Rate FiO2 02/07/17 08:55 70 16 160/64 96 Room Air 02/07/17 07:00 98.2 Intake and Output 02/06/17 02/06/17 02/07/17 15:00 23:00 07:00 Intake Total 750 ml 1240 ml 950 ml Output Total 1500 ml 450 ml Balance -750 ml 790 ml 950 ml Results/Medications Result Diagram: 02/06/17 0858 02/06/17 0858 Results 24 hrs Laboratory Tests Test 02/06/17 11:57 02/06/17 16:26 02/06/17 20:39 02/07/17 06:30 Bedside Glucose 118 114 155 Prothrombin Time 15.4 H Prothrombin Time Ratio 1.2 INR International Normalized Ratio 1.21 Test 02/07/17 08:04 Bedside Glucose 110 Medications Current Medications Diagnostic Test (Pha) (Accu-Chek) 1 ea 02 XX ; Start 02/05/17 at 02:00 Amlodipine Besylate (Norvasc) 10 mg DAILY PO Last administered on 02/07/17 08: 47; Admin Dose 10 MG; Start 02/05/17 at 09:00 Acetaminophen/ Hydrocodone Bitart ([place] (10/325)) 1 tab Q4H PRN PO 4-6 PAIN Last administered on 02/07/17 09:35; Admin Dose 1 TAB; Start 02/04/17 at 21:00 Aspirin (Aspirin) 162 mg DAILY PO Last administered on 02/07/17 08:47; Admin Dose 162 MG; Start 02/05/17 at 09:00 Atorvastatin Calcium (Lipitor) 80 mg QHS PO Last administered on 02/06/17 20: 36; Admin Dose 80 MG; Start 02/04/17 at 21:00 Bisacodyl 10 mg 10 mg Q24H PRN [place] CONSTIPATION; Start 02/04/17 at 21:00 Ceftriaxone Sodium (Rocephin) 50 ml @ 100 mls/hr Q24H IVPB Last administered on 02/06/17 16:29; Admin Dose 100 MLS/HR; Start 02/05/17 at 17:00 Clonidine (Catapres) 0.1 mg Q6H PRN PO ELEVATED SYSTOLIC BP Last administered on 02/06/17 18:17; Admin Dose 0.1 MG; Start 02/04/17 at 21:00 Docusate Sodium (Colace) 100 mg QHS PRN PO CONSTIPATION Last administered on 08:46; Admin Dose 100 MG; Start 02/04/17 at 21:00 Heparin Sodium (Porcine) (Heparin (5000 Units/0.5 ml)) 5,000 unit BID SC Last administered on 02/07/17 08:49; Admin Dose 5,000 UNIT; Start 02/04/17 at 21:00 Hydralazine HCl (Apresoline) 75 mg TID PO Last administered on 02/07/17 08:48 ; Admin Dose 75 MG; Start 02/04/17 at 21:00 Lactulose (Enulose) 20 gm DAILY PRN PO CONSTIPATION; Start 02/04/17 at 21:00 Lidocaine (Lidoderm) 1 patch QPM TD Last administered on 02/06/17 20:37; Admin Dose 1 PATCH; Start 02/04/17 at 21:00 Lubiprostone (Amitiza) 24 mcg BID PO Last administered on 02/07/17 08:46; Admin Dose 24 MCG; Start 02/04/17 at 21:30 Metoclopramide HCl (Reglan) 5 mg BID PO Last administered on 02/07/17 08:47; Admin Dose 5 MG; Start 02/04/17 at 21:00 Metoprolol Tartrate (Lopressor) 100 mg BID PO Last administered on 02/07/17 08 :48; Admin Dose 100 MG; Start 02/04/17 at 21:00 Morphine Sulfate (morphine) 2 mg Q3H PRN IV PAIN LEVEL 6-10 Last administered on 02/06/17 17:36; Admin Dose 2 MG; Start 02/04/17 at 21:00 Naloxone HCl (Narcan) 0.2 mg Q2M PRN IV RR 8 BREATHS/MIN OR LESS; Start at 21:00 Nitroglycerin (Nitroglycerin 2% Oint) 1 inch Q6 TD Last administered on 06:43; Admin Dose 1 INCH; Start 02/05/17 at 00:00 Ondansetron HCl (Zofran Inj) 4 mg Q6H PRN IV NAUSEA AND/OR VOMITING; Start at 21:00 Oxycodone HCl (Oxycontin) 10 mg Q8 PO Last administered on 02/07/17 06:42; Admin Dose 10 MG; Start 02/04/17 at 22:00 Pantoprazole (Protonix Tab) 40 mg DAILY@06 PO Last administered on 02/07/17 06 :42; Admin Dose 40 MG; Start 02/05/17 at 06:00 Polyethylene Glycol (Miralax) 17 gm BID PO Last administered on 02/05/17 09:34 ; Admin Dose 17 GM; Start 02/04/17 at 21:00 IV Flush (NS 10 ml) 10 ml PRN PRN IV IV PROTOCOL Last administered on 00:41; Admin Dose 10 ML; Start 02/04/17 at 21:30 Senna (Senokot) 1 tab DAILY PO Last administered on 02/07/17 08:46; Admin Dose 1 TAB; Start 02/05/17 at 09:00 Sertraline HCl (Zoloft) 50 mg DAILY PO Last administered on 02/07/17 08:46; Admin Dose 50 MG; Start 02/05/17 at 09:00 Sodium Biphosphate/ Sodium Phosphate (Fleet Enema) 133 ml DAILY PRN [place] CONSTIPATION; Start 02/04/17 at 21:30 Tolterodine Tartrate (Detrol) 2 mg BID PO Last administered on 02/07/17 08:46 ; Admin Dose 2 MG; Start 02/04/17 at 21:15 Warfarin Sodium (Coumadin) 6 mg DAILY@17 PO Last administered on 02/06/17 16: 29; Admin Dose 6 MG; Start 02/05/17 at 17:00 Zolpidem Tartrate (Ambien) 5 mg HS PRN PO INSOMNIA Last administered on t 22:46; Admin Dose 5 MG; Start 02/04/17 at 21:30 Miscellaneous Information 1 ea NOTE XX ; Start 02/04/17 at 21:30 Glucose (Glutose) 15 gm Q15M PRN PO DECREASED GLUCOSE; Start 02/04/17 at 21:30 Glucose (Glutose) 22.5 gm Q15M PRN PO DECREASED GLUCOSE; Start 02/04/17 at 21: 30 Dextrose (D50w Syringe) 25 ml Q15M PRN IV DECREASED GLUCOSE; Start 02/04/17 at 21:30 Dextrose (D50w Syringe) 50 ml Q15M PRN IV DECREASED GLUCOSE; Start 02/04/17 at 21:30 Glucagon (Glucagen) 1 mg Q15M PRN IM DECREASED GLUCOSE; Start 02/04/17 at 21:30 Glucose 15 gm 15 gm Q15M PRN BUCCAL DECREASED GLUCOSE; Start 02/04/17 at 21:30 Vancomycin HCl (Vancocin) 250 ml @ 125 mls/hr Q48H IVPB ; Start 02/08/17 at 10: 00 Levofloxacin (Levaquin) 250 mg Q48H PO ; Start 02/08/17 at 09:00 Assessment/Plan Chief Complaint/Hosp Course 1. Diskitis L5-S1 with radiculopathy. Patient is status post transforaminal lumbar interbody fusion. The patient is currently stable. Continue current antibiotic regimen for 6 weeks. We will follow up with Neurosurgery. Follow up Infectious Disease. 2. Chronic back pain, improved. Continue current pain regimen. 3. End-stage renal disease. Plan for hemodialysis tomorrow 4. Hypertension. Continue current blood pressure regimen. 5. Atrial fibrillation. Continue current medical management. Continue Coumadin. Follow up with INR. The patient is being seen by Cardiology. 6. Transient ischemic attack, resolved. Continue medical management. 7. Anemia. Monitor. Monitor H and H levels. 8. Metabolic bone disorder. Continue to monitor calcium and phosphorus levels. 9. Diabetes. Continue Accu-Cheks and sliding scale. 10. Gastrointestinal and deep venous thrombosis prophylaxis. Problems: AMBREEN BAUGH MD Feb 07, 2017 10:06
[2017-02-07 12:26] VITALS: BP 138/69; PULSE 70; RESP 16
[2017-02-07] MEDS: CEFTRIAXONE 2 GM/NS 50 ML IVPB SCH (16:31)
[2017-02-07] MEDS: WARFARIN 3 MG TAB PO SCH (16:32)
[2017-02-07 20:00] VITALS: BP 165/70; RESP 18
[2017-02-07] MEDS: ATORVASTATIN 80 MG TAB PO SCH (21:28)
[2017-02-07] MEDS: LIDOCAINE 5% PATCH TD SCH (21:29)
[2017-02-08] VITALS: BP 156/70; PULSE 78; RESP 18
[2017-02-08] MEDS: NITROGLYCERIN 2% 1 GM OINT PKT TD SCH ×4 (00:04→17:37)
[2017-02-08] MEDS: ACCU-CHEK XX SCH (02:00)
[2017-02-08] MEDS: morphine 2 MG INJ IV PRN ×2 (02:25→21:03)
[2017-02-08] MEDS: oxyCODONE (CR) 10 MG TAB [oxyCONTIN] PO SCH ×3 (06:22→21:20)
[2017-02-08] MEDS: PANTOPRAZOLE (EC) 40 MG TAB PO SCH (06:22)
[2017-02-08 06:30] VITALS: BP 174/75
[2017-02-08 07:30] VITALS: BP 134/58; RESP 18
[2017-02-08] MEDS: INSULIN ASPART [NOVOLOG] 3 ML PEN SC SCH ×4 (07:35→21:00)
[2017-02-08] MEDS: SEVELAMER 800 MG TAB PO SCH ×4 (07:35→17:34)
[2017-02-08] MEDS: LUBIPROSTONE 24 MCG CAP PO SCH ×2 (08:37→21:05)
[2017-02-08] MEDS: ASPIRIN 81 MG TAB PO SCH (08:38)
[2017-02-08] MEDS: TOLTERODINE 2 MG TAB PO SCH ×2 (08:38→21:05)
[2017-02-08] MEDS: METOPROLOL 100 MG TAB PO SCH ×2 (08:38→21:04)
[2017-02-08] MEDS: LEVOFLOXACIN 250 MG TAB PO SCH (08:38)
[2017-02-08] MEDS: SENNA TAB PO SCH (08:39)
[2017-02-08] MEDS: AMLODIPINE 10 MG TAB PO SCH (08:39)
[2017-02-08] MEDS: POLYETHYLENE GLYCOL 17 GM PACKET PO SCH ×2 (08:39→21:03)
[2017-02-08] MEDS: SERTRALINE 50 MG TAB PO SCH (08:39)
[2017-02-08] MEDS: METOCLOPRAMIDE 10 MG TAB PO SCH ×2 (08:39→21:05)
[2017-02-08] MEDS: HEPARIN 5,000 UNIT/0.5 ML VIAL SC SCH ×2 (08:47→21:11)
[2017-02-08] MEDS ORDERED: VANCOMYCIN 1 GM in NS 250 ML IVPB SCH (10:00)
--- NOTE | 2017-02-08 10:26 | PN ---
DATE: 02/08/2017 SUBJECTIVE: The patient is stable. No events overnight. No fevers, chills, nausea, vomiting. OBJECTIVE DATA: VITAL SIGNS: Blood pressure is 174/75, respiration 18, pulse 78, temperature 98.7. HEENT: Head is normocephalic. NECK: Supple. HEART: Regular rate. LUNGS: Diminished breath sounds at the base. ABDOMEN: Soft, nontender to palpation. No rebound or guarding. EXTREMITIES: Negative for clubbing, cyanosis. No edema. DERMATOLOGIC: Clean. No rashes. MUSCULOSKELETAL: No joint effusion. NEUROLOGIC: Unchanged exam. MEDICATIONS: Reviewed. LABORATORY AND DIAGNOSTIC DATA: Has been reviewed. No new labs. ASSESSMENT AND PLAN: 1. Diskitis L5-S1 with radiculopathy. Patient status post transforaminal lumbar interbody fusion. The patient is currently stable. Continue antibiotic regimen for a total 6 weeks. Follow up with Neurosurgery in 1-2 weeks. Follow up Infectious Disease. 2. Chronic back pain, improved. Continue current pain regimen. 3. End-stage renal disease. Plan for dialysis tomorrow. 4. Hypertension. Continue current blood pressure regimen. 5. Atrial fibrillation. Continue current medical management. Follow up INR being the patient has been seen by Cardiology. 6. Status post transient ischemic attack. 7. Anemia. Monitor hemoglobin and hematocrit levels. 8. Mineral bone disorder. Monitor calcium and phosphorus levels. 9. Diabetes. Continue current insulin regimen. 10. Gastrointestinal and deep venous thrombosis prophylaxis. Dictated By: Buck Seals DO /saul/nichole /Document#: [id number]
[2017-02-08] MEDS ORDERED: ERTAPENEM SODIUM 1 GM in SOD CHLORIDE 0.9% 100 ML IVPB SCH (11:30)
[2017-02-08 12:18] LABS: INR 1.3; PROTIME 16.3 Sec (12.2-14.2); PT RATIO 1.3
--- NOTE | 2017-02-08 12:19 | CONS ---
Date/Time of Note Date/Time of Note DATE: 02/08/17 TIME: 12:10 Consult Date/Type/Reason Admit Date/Time Feb 04, 2017 at 20:01 Initial Consult Date Type of Consultation: nephrology Objective Vital Signs Date Time Temp Pulse Resp B/P Pulse Ox O2 Delivery O2 Flow Rate FiO2 02/08/17 07:30 98.2 71 18 134/58 93 02/08/17 00:00 Room Air Intake and Output 02/07/17 02/07/17 02/08/17 15:00 23:00 07:00 Intake Total 1490 ml 800 ml Output Total 400 ml 800 ml Balance 1090 ml 0 ml INTERDISCIPLINARY TEAM CONFERENCE BOWEL- Cont BLADDER-Cont SKIN- intact OT- DRESSING-min BATHING-min TOILETING-min PT- BED MOBILITY-min TRANSFERS-min AMBULATION-min 70 A/P- Interdisciplinary team conference held today. Please see interdisciplinary sheet. Working toward d.c. on 02/17 with post discharge follow up of physical therapy, occupational therapy. Results/Medications Result Diagram: 02/06/17 0858 02/06/17 0858 Results 24 hrs Laboratory Tests Test 02/07/17 17:16 02/07/17 21:06 02/08/17 07:58 Bedside Glucose 160 134 106 Medications Current Medications Diagnostic Test (Pha) (Accu-Chek) 1 ea 02 XX ; Start 02/05/17 at 02:00 Amlodipine Besylate (Norvasc) 10 mg DAILY PO Last administered on 02/08/17 08: 39; Admin Dose 10 MG; Start 02/05/17 at 09:00 Acetaminophen/ Hydrocodone Bitart ([place] (10/325)) 1 tab Q4H PRN PO 4-6 PAIN Last administered on 02/07/17 09:35; Admin Dose 1 TAB; Start 02/04/17 at 21:00 Aspirin (Aspirin) 162 mg DAILY PO Last administered on 02/08/17 08:38; Admin Dose 162 MG; Start 02/05/17 at 09:00 Atorvastatin Calcium (Lipitor) 80 mg QHS PO Last administered on 02/07/17 21: 28; Admin Dose 80 MG; Start 02/04/17 at 21:00 Bisacodyl (Dulcolax Supp) 10 mg Q24H PRN [place] CONSTIPATION; Start 02/04/17 at 21: 00 Clonidine (Catapres) 0.1 mg Q6H PRN PO ELEVATED SYSTOLIC BP Last administered on 02/08/17 06:23; Admin Dose 0.1 MG; Start 02/04/17 at 21:00 Docusate Sodium (Colace) 100 mg QHS PRN PO CONSTIPATION Last administered on 08:46; Admin Dose 100 MG; Start 02/04/17 at 21:00 Heparin Sodium (Porcine) (Heparin (5000 Units/0.5 ml)) 5,000 unit BID SC Last administered on 02/08/17 08:47; Admin Dose 5,000 UNIT; Start 02/04/17 at 21:00 Hydralazine HCl (Apresoline) 75 mg TID PO Last administered on 02/08/17 08:37 ; Admin Dose 75 MG; Start 02/04/17 at 21:00 Lactulose (Enulose) 20 gm DAILY PRN PO CONSTIPATION; Start 02/04/17 at 21:00 Lidocaine (Lidoderm) 1 patch QPM TD Last administered on 02/07/17 21:29; Admin Dose 1 PATCH; Start 02/04/17 at 21:00 Lubiprostone (Amitiza) 24 mcg BID PO Last administered on 02/08/17 08:37; Admin Dose 24 MCG; Start 02/04/17 at 21:30 Metoclopramide HCl (Reglan) 5 mg BID PO Last administered on 02/08/17 08:39; Admin Dose 5 MG; Start 02/04/17 at 21:00 Metoprolol Tartrate (Lopressor) 100 mg BID PO Last administered on 02/08/17 08 :38; Admin Dose 100 MG; Start 02/04/17 at 21:00 Morphine Sulfate (morphine) 2 mg Q3H PRN IV PAIN LEVEL 6-10 Last administered on 02/08/17 02:25; Admin Dose 2 MG; Start 02/04/17 at 21:00 Naloxone HCl (Narcan) 0.2 mg Q2M PRN IV RR 8 BREATHS/MIN OR LESS; Start at 21:00 Nitroglycerin (Nitroglycerin 2% Oint) 1 inch Q6 TD Last administered on 06:22; Admin Dose 1 INCH; Start 02/05/17 at 00:00 Ondansetron HCl (Zofran Inj) 4 mg Q6H PRN IV NAUSEA AND/OR VOMITING; Start at 21:00 Oxycodone HCl (Oxycontin) 10 mg Q8 PO Last administered on 02/08/17 06:22; Admin Dose 10 MG; Start 02/04/17 at 22:00 Pantoprazole (Protonix Tab) 40 mg DAILY@06 PO Last administered on 02/08/17 06 :22; Admin Dose 40 MG; Start 02/05/17 at 06:00 Polyethylene Glycol (Miralax) 17 gm BID PO Last administered on 02/08/17 08:39 ; Admin Dose 17 GM; Start 02/04/17 at 21:00 IV Flush (NS 10 ml) 10 ml PRN PRN IV IV PROTOCOL Last administered on 00:41; Admin Dose 10 ML; Start 02/04/17 at 21:30 Senna (Senokot) 1 tab DAILY PO Last administered on 02/08/17 08:39; Admin Dose 1 TAB; Start 02/05/17 at 09:00 Sertraline HCl (Zoloft) 50 mg DAILY PO Last administered on 02/08/17 08:39; Admin Dose 50 MG; Start 02/05/17 at 09:00 Sodium Biphosphate/ Sodium Phosphate (Fleet Enema) 133 ml DAILY PRN [place] CONSTIPATION; Start 02/04/17 at 21:30 Tolterodine Tartrate (Detrol) 2 mg BID PO Last administered on 02/08/17 08:38 ; Admin Dose 2 MG; Start 02/04/17 at 21:15 Warfarin Sodium (Coumadin) 6 mg DAILY@17 PO Last administered on 02/07/17 16: 32; Admin Dose 6 MG; Start 02/05/17 at 17:00 Zolpidem Tartrate (Ambien) 5 mg HS PRN PO INSOMNIA Last administered on 22:46; Admin Dose 5 MG; Start 02/04/17 at 21:30 Miscellaneous Information 1 ea NOTE XX ; Start 02/04/17 at 21:30 Glucose (Glutose) 15 gm Q15M PRN PO DECREASED GLUCOSE; Start 02/04/17 at 21:30 Glucose (Glutose) 22.5 gm Q15M PRN PO DECREASED GLUCOSE; Start 02/04/17 at 21: 30 Dextrose (D50w Syringe) 25 ml Q15M PRN IV DECREASED GLUCOSE; Start 02/04/17 at 21:30 Dextrose (D50w Syringe) 50 ml Q15M PRN IV DECREASED GLUCOSE; Start 02/04/17 at 21:30 Glucagon (Glucagen) 1 mg Q15M PRN IM DECREASED GLUCOSE; Start 02/04/17 at 21:30 Glucose (Glutose) 15 gm Q15M PRN BUCCAL DECREASED GLUCOSE; Start 02/04/17 at 21 :30 Levofloxacin (Levaquin) 250 mg Q48H PO Last administered on 02/08/17t 08:38; Admin Dose 250 MG; Start 02/08/17 at 09:00 Linezolid (Zyvox) 600 mg BID PO ; Start 02/08/17 at 21:00 ALINE CORREIA MD Feb 08, 2017 12:19
[2017-02-08 14:00] VITALS: BP 145/65; RESP 20
--- NOTE | 2017-02-08 15:19 | CONS ---
Date/Time of Note Date/Time of Note DATE: 02/08/17 TIME: 15:17 Consult Date/Type/Reason Admit Date/Time Feb 04, 2017 at 20:01 Initial Consult Date Type of Consultation: CARDIOLOGY Subjective CARDIOLOGY FOLLOW UP NOTE Discussed with staff and she denies any chest pain or pressure or palpitation to me. she has minimal back pain and is able to walk with PT now. objective: General: no acute distress HEENT: NC/AT. pupils are equal. round. NECK: NO JVD. no stridor. CV: RRR. systolic murmur; no gallop or rubs. PULM: no wheezing or rhonchi. GI: SOFT, NT, ND, no rebound or guarding Extremity: trace B/L LE edema. no clubbing. neuro: awake and alert, Psych: calm and pleasant rectal: deferred Objective Vital Signs Date Time Temp Pulse Resp B/P Pulse Ox O2 Delivery O2 Flow Rate FiO2 02/08/17 07:30 98.2 71 18 134/58 93 02/08/17 00:00 Room Air Intake and Output 02/07/17 02/07/17 02/08/17 15:00 23:00 07:00 Intake Total 1490 ml 800 ml Output Total 400 ml 800 ml Balance 1090 ml 0 ml Results/Medications Result Diagram: 02/06/17 0858 02/06/17 0858 Results 24 hrs Laboratory Tests Test 02/07/17 17:16 02/07/17 21:06 02/08/17 07:58 02/08/17 11:06 Bedside Glucose 160 134 106 Prothrombin Time 16.3 H Prothrombin Time Ratio 1.3 INR International Normalized Ratio 1.30 Test 02/08/17 12:41 Bedside Glucose 110 Medications Current Medications Diagnostic Test (Pha) (Accu-Chek) 1 ea 02 XX ; Start 02/05/17 at 02:00 Amlodipine Besylate (Norvasc) 10 mg DAILY PO Last administered on 02/08/17 08: 39; Admin Dose 10 MG; Start 02/05/17 at 09:00 Acetaminophen/ Hydrocodone Bitart ([place] (10/325)) 1 tab Q4H PRN PO 4-6 PAIN Last administered on 02/07/17 09:35; Admin Dose 1 TAB; Start 02/04/17 at 21:00 Aspirin (Aspirin) 162 mg DAILY PO Last administered on 02/08/17 08:38; Admin Dose 162 MG; Start 02/05/17 at 09:00 Atorvastatin Calcium (Lipitor) 80 mg QHS PO Last administered on 02/07/17 21: 28; Admin Dose 80 MG; Start 02/04/17 at 21:00 Bisacodyl (Dulcolax Supp) 10 mg Q24H PRN [place]ST[place]ATION; Start 02/04/17 at 21: 00 Clonidine (Catapres) 0.1 mg Q6H PRN PO ELEVATED SYSTOLIC BP Last administered on 02/08/17 06:23; Admin Dose 0.1 MG; Start 02/04/17 at 21:00 Docusate Sodium (Colace) 100 mg QHS PRN PO CONSTIPATION Last administered on 08:46; Admin Dose 100 MG; Start 02/04/17 at 21:00 Heparin Sodium (Porcine) (Heparin (5000 Units/0.5 ml)) 5,000 unit BID SC Last administered on 02/08/17 08:47; Admin Dose 5,000 UNIT; Start 02/04/17 at 21:00 Hydralazine HCl (Apresoline) 75 mg TID PO Last administered on 02/08/17 13:15 ; Admin Dose 75 MG; Start 02/04/17 at 21:00 Lactulose (Enulose) 20 gm DAILY PRN PO CONSTIPATION; Start 02/04/17 at 21:00 Lidocaine (Lidoderm) 1 patch QPM TD Last administered on 02/07/17 21:29; Admin Dose 1 PATCH; Start 02/04/17 at 21:00 Lubiprostone (Amitiza) 24 mcg BID PO Last administered on 02/08/17 08:37; Admin Dose 24 MCG; Start 02/04/17 at 21:30 Metoclopramide HCl (Reglan) 5 mg BID PO Last administered on 02/08/17 08:39; Admin Dose 5 MG; Start 02/04/17 at 21:00 Metoprolol Tartrate (Lopressor) 100 mg BID PO Last administered on 02/08/17 08 :38; Admin Dose 100 MG; Start 02/04/17 at 21:00 Morphine Sulfate (morphine) 2 mg Q3H PRN IV PAIN LEVEL 6-10 Last administered on 02/08/17 02:25; Admin Dose 2 MG; Start 02/04/17 at 21:00 Naloxone HCl (Narcan) 0.2 mg Q2M PRN IV RR 8 BREATHS/MIN OR LESS; Start at 21:00 Nitroglycerin (Nitroglycerin 2% Oint) 1 inch Q6 TD Last administered on 13:15; Admin Dose 1 INCH; Start 02/05/17 at 00:00 Ondansetron HCl (Zofran Inj) 4 mg Q6H PRN IV NAUSEA AND/OR VOMITING; Start at 21:00 Oxycodone HCl (Oxycontin) 10 mg Q8 PO Last administered on 02/08/17 13:15; Admin Dose 10 MG; Start 02/04/17 at 22:00 Pantoprazole (Protonix Tab) 40 mg DAILY@06 PO Last administered on 02/08/17 06 :22; Admin Dose 40 MG; Start 02/05/17 at 06:00 Polyethylene Glycol (Miralax) 17 gm BID PO Last administered on 02/08/17 08:39 ; Admin Dose 17 GM; Start 02/04/17 at 21:00 IV Flush (NS 10 ml) 10 ml PRN PRN IV IV PROTOCOL Last administered on 00:41; Admin Dose 10 ML; Start 02/04/17 at 21:30 Senna (Senokot) 1 tab DAILY PO Last administered on 02/08/17 08:39; Admin Dose 1 TAB; Start 02/05/17 at 09:00 Sertraline HCl (Zoloft) 50 mg DAILY PO Last administered on 02/08/17 08:39; Admin Dose 50 MG; Start 02/05/17 at 09:00 Sodium Biphosphate/ Sodium Phosphate (Fleet Enema) 133 ml DAILY PRN [place] CONSTIPATION; Start 02/04/17 at 21:30 Tolterodine Tartrate (Detrol) 2 mg BID PO Last administered on 02/08/17 08:38 ; Admin Dose 2 MG; Start 02/04/17 at 21:15 Warfarin Sodium (Coumadin) 6 mg DAILY@17 PO Last administered on 02/07/17 16: 32; Admin Dose 6 MG; Start 02/05/17 at 17:00 Zolpidem Tartrate (Ambien) 5 mg HS PRN PO INSOMNIA Last administered on 22:46; Admin Dose 5 MG; Start 02/04/17 at 21:30 Miscellaneous Information 1 ea NOTE XX ; Start 02/04/17 at 21:30 Glucose (Glutose) 15 gm Q15M PRN PO DECREASED GLUCOSE; Start 02/04/17 at 21:30 Glucose (Glutose) 22.5 gm Q15M PRN PO DECREASED GLUCOSE; Start 02/04/17 at 21: 30 Dextrose (D50w Syringe) 25 ml Q15M PRN IV DECREASED GLUCOSE; Start 02/04/17 at 21:30 Dextrose (D50w Syringe) 50 ml Q15M PRN IV DECREASED GLUCOSE; Start 02/04/17 at 21:30 Glucagon (Glucagen) 1 mg Q15M PRN IM DECREASED GLUCOSE; Start 02/04/17 at 21:30 Glucose (Glutose) 15 gm Q15M PRN BUCCAL DECREASED GLUCOSE; Start 02/04/17 at 21 :30 Levofloxacin (Levaquin) 250 mg Q48H PO Last administered on 02/08/17 08:38; Admin Dose 250 MG; Start 02/08/17 at 09:00 Linezolid (Zyvox) 600 mg BID PO ; Start 02/08/17 at 21:00 Assessment/Plan Chief Complaint/Hosp Course 1. Paroxysmal atrial fibrillation. Currently appears to be remaining in sinus rhythm. 2. History of multiple cerebrovascular accidents (CVA). 3. Renal failure on dialysis. 4. Hypertension. 5. Chronic obstructive pulmonary disease (COPD). 6. History of spinal infection and s/p spinal surgery. 7. Anemia. 8. Dyslipidemia. 9. Diabetes. PLAN: Coumadin has been resumed, and is being adjusted by IM. We will continue with the current blood pressure medications. Dialysis will be continued as per renal. Physical therapy and rehabilitation. Antibiotic as per Internal Medicine and ID recommendations. Once the INR is therapeutic, aspirin will be discontinued as well. Thank you for this referral. I will Continue to follow along with you. TAMERA BAILEY MD [facility] Problems: TAMERA BAILEY MD Feb 08, 2017 15:19
[2017-02-08] MEDS: WARFARIN 3 MG TAB PO SCH (17:34)
[2017-02-08 20:00] VITALS: BP 156/71; RESP 18
[2017-02-08] MEDS: LIDOCAINE 5% PATCH TD SCH (21:03)
[2017-02-08] MEDS: ZYVOX 600 MG TAB PO SCH (21:03)
[2017-02-08] MEDS: ATORVASTATIN 80 MG TAB PO SCH (21:05)
[2017-02-08 21:08] VITALS: BP 147/70; PULSE 72; RESP 16
[2017-02-09] VITALS (12 sets, daily range): BP systolic 122–152; BP diastolic 63–78; PULSE 63–77; RESP 16–20
[2017-02-09] MEDS: NITROGLYCERIN 2% 1 GM OINT PKT TD SCH ×4 (00:02→17:32)
[2017-02-09] MEDS: ACCU-CHEK XX SCH (02:00)
[2017-02-09] MEDS: PANTOPRAZOLE (EC) 40 MG TAB PO SCH (05:42)
[2017-02-09] MEDS: oxyCODONE (CR) 10 MG TAB [oxyCONTIN] PO SCH ×3 (05:43→22:32)
[2017-02-09 06:16] LABS: BASOPHIL # 0.1 10^3/ul (0.0-0.1); BASOPHILS % 0.7 % (0.0-2.0); EOSINOPHILS # 0.4 10^3/ul (0.0-0.5); EOSINOPHILS % 4.7 % (0.0-7.0); HEMOGLOBIN 8.5 g/dl (12.0-16.0); LYMPHOCYTES # 2.2 10^3/ul (0.8-2.9); LYMPHOCYTES % 25.9 % (15.0-51.0); MEAN CORPUSCULAR HEMOGLOBIN 29.9 pg (29.0-33.0); MEAN CORPUSCULAR HGB CONC 30.4 g/dl (32.0-37.0); MEAN CORPUSCULAR VOLUME 98.6 fl (82.0-101.0); MEAN PLATELET VOLUME 8.3 fl (7.4-10.4); MONOCYTE # 0.6 10^3/ul (0.3-0.9); MONOCYTES % 6.5 % (0.0-11.0); NEUTROPHIL # 5.3 10^3/ul (1.6-7.5); NEUTROPHILS % 61.6 % (39.0-77.0); PLATELET COUNT 332 10^3/UL (140-415); RED BLOOD COUNT 2.84 10^6/ul (4.20-5.40); RED CELL DISTRIBUTION WIDTH 15.3 % (11.5-14.5); WHITE BLOOD COUNT 8.5 10^3/ul (4.8-10.8)
[2017-02-09 06:46] LABS: CALCIUM 8.9 mg/dl (8.4-10.2); CREATININE 3.12 mg/dl (0.44-1.00); MAGNESIUM 1.6 mg/dl (1.7-2.5); PHOSPHORUS 5.4 mg/dl (2.5-4.9)
--- NOTE | 2017-02-09 06:47 | PN ---
DATE: 02/08/2017 SUBJECTIVE DATA: No acute changes overnight. Patient is alert, eating lunch. Denies pain. No fevers. LABORATORY AND DIAGNOSTIC DATA: No labs this morning. MICROBIOLOGY: Urine culture on February 05 grew Klebsiella and E coli ESBL as well as Enterococcus species. Of note, both Klebsiella and E coli susceptible to Levaquin. INDWELLINGS: Patient has PICC line and Perm-A-Cath. ANTIMICROBIALS: She is on Zyvox and Levaquin status post Audelia nunez. OBJECTIVE DATA: GENERAL: This is obese, well-developed, middle-aged woman who is awake, in no distress. HEENT: Head atraumatic, normocephalic. Sclerae anicteric. Buccal mucosa pink. NECK: Supple. CHEST: Rise symmetrical. Breath sounds diminished at the bases. HEART: S1, S2. ABDOMEN: Soft, bowel sounds present. EXTREMITIES: Without cyanosis. ASSESSMENT: 1. L5-S1 diskitis with radiculopathy, status post surgical intervention on January 22, 2017. 2. Positive urine cx. 3. End-stage renal disease, hemodialysis dependent. 4. Diabetes. 5. Anemia. 6. Hypertension. PLAN: Patient remains stable. Continue present care. Continue on current antibiotics. Await for final cultures. Monitor postvoid residuals. Dictated By: Nini Velázquez NP /saul/aurelia /Document#: [id number] STORMY
[2017-02-09] MEDS: INSULIN ASPART [NOVOLOG] 3 ML PEN SC SCH ×4 (07:35→21:00)
[2017-02-09] MEDS: ZYVOX 600 MG TAB PO SCH (08:37)
[2017-02-09] MEDS: LUBIPROSTONE 24 MCG CAP PO SCH ×2 (08:38→21:01)
[2017-02-09] MEDS: SEVELAMER 800 MG TAB PO SCH ×3 (08:38→17:32)
[2017-02-09] MEDS: ASPIRIN 81 MG TAB PO SCH (08:38)
[2017-02-09] MEDS: HYDROCODONE/APAP (10/325) TAB PO PRN ×2 (08:38→17:32)
[2017-02-09] MEDS: SERTRALINE 50 MG TAB PO SCH (08:38)
[2017-02-09] MEDS: POLYETHYLENE GLYCOL 17 GM PACKET PO SCH ×2 (08:38→21:00)
[2017-02-09] MEDS: SENNA TAB PO SCH (08:39)
[2017-02-09] MEDS: METOCLOPRAMIDE 10 MG TAB PO SCH ×2 (08:39→21:03)
[2017-02-09] MEDS: HEPARIN 5,000 UNIT/0.5 ML VIAL SC SCH ×2 (08:46→21:22)
[2017-02-09] MEDS: TOLTERODINE 2 MG TAB PO SCH ×2 (09:00→21:00)
[2017-02-09] MEDS: METOPROLOL 100 MG TAB PO SCH ×2 (09:00→21:03)
[2017-02-09] MEDS: AMLODIPINE 10 MG TAB PO SCH (09:00)
[2017-02-09] MEDS ORDERED: MAGNESIUM SULFATE 1 GM/D5W 100 ML IVPB ONE (09:30)
[2017-02-09] MEDS: morphine 2 MG INJ IV PRN ×3 (09:50→21:05)
--- NOTE | 2017-02-09 10:27 | PN ---
DATE: 02/09/2017 SUBJECTIVE DATA: The patient is stable. Had hemodialysis yesterday, tolerated well. OBJECTIVE DATA: VITAL SIGNS: Blood pressure 130/65, temperature 98.6, pulse 72, respirations 20. HEENT: Head is normocephalic. NECK: Supple. HEART: Regular rate. LUNGS: Diminished breath sounds at the base. ABDOMEN: Soft, nontender to palpation. No rebound or guarding. EXTREMITIES: Negative for clubbing, cyanosis. No edema. DERMATOLOGIC: Clean. No rashes. MUSCULOSKELETAL: No joint effusion. NEUROLOGIC: Unchanged exam. MEDICATIONS: Reviewed. LABORATORY AND DIAGNOSTIC DATA: Shows a sodium 137, potassium 5.0, BUN 33, creatinine 1.2, magnesium 1.6. White count 8.5, hemoglobin 8.5, and platelet count 332,000. ASSESSMENT AND PLAN: 1. Diskitis L5-S1 with radiculopathy. Patient status post transforaminal lumbar interbody fusion. The patient is currently stable. Continue current antibiotic regimen for 6 weeks total. Follow up with Infectious Disease. 2. Chronic back pain, improved. 3. End-stage renal disease. Plan for dialysis tomorrow. 4. Hypertension. Continue current blood pressure regimen. 5. Atrial fibrillation. Continue medical management. Continue Coumadin. INR being adjusted by Cardiology. 6. Status post transient ischemic attack. 7. Anemia. Monitor hemoglobin and hematocrit levels. 8. Mineral bone disorder. Continue to monitor calcium and phosphorus levels. 9. Diabetes. Continue Accu-Cheks and sliding scale. 10. Hypomagnesemia. Replete magnesium sulfate. Dictated By: Buck Seals DO /saul/nichole /Document#: [id number]
[2017-02-09 11:32] LABS: INR 1.34; PROTIME 16.7 Sec (12.2-14.2); PT RATIO 1.3
[2017-02-09] MEDS ORDERED: FOSFOMYCIN 3 GM PACKET PO ONE (12:00)
--- NOTE | 2017-02-09 12:14 | CONS ---
Date/Time of Note Date/Time of Note DATE: 02/09/17 TIME: 12:12 Consult Date/Type/Reason Admit Date/Time Feb 04, 2017 at 20:01 Type of Consultation: CARDIOLOGY Subjective In good spirits Objective pulm-cta min assist ambulation Vital Signs Date Time Temp Pulse Resp B/P Pulse Ox O2 Delivery O2 Flow Rate FiO2 02/09/17 07:57 98.6 72 20 132/65 97 Room Air Intake and Output 02/08/17 02/08/17 02/09/17 15:00 23:00 07:00 Intake Total 200 ml Balance 200 ml Results/Medications Result Diagram: 02/09/17 0601 02/09/17 0601 Results 24 hrs Laboratory Tests Test 02/08/17 12:41 02/08/17 17:42 02/08/17 21:16 02/09/17 06:01 Bedside Glucose 110 119 124 White Blood Count 8.5 Red Blood Count 2.84 L Hemoglobin 8.5 L Hematocrit 28.0 L Mean Corpuscular Volume 98.6 Mean Corpuscular Hemoglobin 29.9 Mean Corpuscular Hemoglobin Concent 30.4 L Red Cell Distribution Width 15.3 H Platelet Count 332 Mean Platelet Volume 8.3 Neutrophils % 61.6 Lymphocytes % 25.9 Monocytes % 6.5 Eosinophils % 4.7 Basophils % 0.7 Nucleated Red Blood Cells % 0.0 Neutrophils # 5.3 Lymphocytes # 2.2 Monocytes # 0.6 Eosinophils # 0.4 Basophils # 0.1 Nucleated Red Blood Cells # 0.0 Sodium Level 137 Potassium Level 5.0 Chloride Level 107 Carbon Dioxide Level 25 Anion Gap 10 Blood Urea Nitrogen 33 H Creatinine 3.12 H Glucose Level 88 Calcium Level 8.9 Phosphorus Level 5.4 H Magnesium Level 1.6 L Test 02/09/17 08:05 02/09/17 10:29 Bedside Glucose 110 Prothrombin Time 16.7 H Prothrombin Time Ratio 1.3 INR International Normalized Ratio 1.34 Medications Current Medications Diagnostic Test (Pha) (Accu-Chek) 1 ea 02 XX ; Start 02/05/17 at 02:00 Amlodipine Besylate (Norvasc) 10 mg DAILY PO Last administered on 02/08/17t 08: 39; Admin Dose 10 MG; Start 02/05/17 at 09:00 Acetaminophen/ Hydrocodone Bitart ([place] (10/325)) 1 tab Q4H PRN PO 4-6 PAIN Last administered on 02/09/17 08:38; Admin Dose 1 TAB; Start 02/04/17 at 21:00 Aspirin (Aspirin) 162 mg DAILY PO Last administered on 02/09/17 08:38; Admin Dose 162 MG; Start 02/05/17 at 09:00 Atorvastatin Calcium (Lipitor) 80 mg QHS PO Last administered on 02/08/17 21: 05; Admin Dose 80 MG; Start 02/04/17 at 21:00 Bisacodyl (Dulcolax Supp) 10 mg Q24H PRN [place] CONSTIPATION; Start 02/04/17 at 21: 00 Clonidine (Catapres) 0.1 mg Q6H PRN PO ELEVATED SYSTOLIC BP Last administered on 02/08/17 06:23; Admin Dose 0.1 MG; Start 02/04/17 at 21:00 Docusate Sodium (Colace) 100 mg QHS PRN PO CONSTIPATION Last administered on 08:46; Admin Dose 100 MG; Start 02/04/17 at 21:00 Heparin Sodium (Porcine) (Heparin (5000 Units/0.5 ml)) 5,000 unit BID SC Last administered on 02/09/17 08:46; Admin Dose 5,000 UNIT; Start 02/04/17 at 21:00 Hydralazine HCl (Apresoline) 75 mg TID PO Last administered on 02/08/17 21:08 ; Admin Dose 75 MG; Start 02/04/17 at 21:00 Lactulose (Enulose) 20 gm DAILY PRN PO CONSTIPATION; Start 02/04/17 at 21:00 Lidocaine (Lidoderm) 1 patch QPM TD Last administered on 02/08/17 21:03; Admin Dose 1 PATCH; Start 02/04/17 at 21:00 Lubiprostone (Amitiza) 24 mcg BID PO Last administered on 02/09/17 08:38; Admin Dose 24 MCG; Start 02/04/17 at 21:30 Metoclopramide HCl (Reglan) 5 mg BID PO Last administered on 02/09/17 08:39; Admin Dose 5 MG; Start 02/04/17 at 21:00 Metoprolol Tartrate (Lopressor) 100 mg BID PO Last administered on 02/08/17 21 :04; Admin Dose 100 MG; Start 02/04/17 at 21:00 Morphine Sulfate (morphine) 2 mg Q3H PRN IV PAIN LEVEL 6-10 Last administered on 02/09/17 09:50; Admin Dose 2 MG; Start 02/04/17 at 21:00 Naloxone HCl (Narcan) 0.2 mg Q2M PRN IV RR 8 BREATHS/MIN OR LESS; Start at 21:00 Nitroglycerin (Nitroglycerin 2% Oint) 1 inch Q6 TD Last administered on 05:42; Admin Dose 1 INCH; Start 02/05/17 at 00:00 Ondansetron HCl (Zofran Inj) 4 mg Q6H PRN IV NAUSEA AND/OR VOMITING; Start at 21:00 Oxycodone HCl (Oxycontin) 10 mg Q8 PO Last administered on 02/09/17 05:43; Admin Dose 10 MG; Start 02/04/17 at 22:00 Pantoprazole (Protonix Tab) 40 mg DAILY@06 PO Last administered on 02/09/17 05 :42; Admin Dose 40 MG; Start 02/05/17 at 06:00 Polyethylene Glycol (Miralax) 17 gm BID PO Last administered on 02/09/17 08:38 ; Admin Dose 17 GM; Start 02/04/17 at 21:00 IV Flush (NS 10 ml) 10 ml PRN PRN IV IV PROTOCOL Last administered on 00:41; Admin Dose 10 ML; Start 02/04/17 at 21:30 Senna (Senokot) 1 tab DAILY PO Last administered on 02/09/17 08:39; Admin Dose 1 TAB; Start 02/05/17 at 09:00 Sertraline HCl (Zoloft) 50 mg DAILY PO Last administered on 02/09/17 08:38; Admin Dose 50 MG; Start 02/05/17 at 09:00 Sodium Biphosphate/ Sodium Phosphate (Fleet Enema) 133 ml DAILY PRN [place] CONSTIPATION; Start 02/04/17 at 21:30 Tolterodine Tartrate (Detrol) 2 mg BID PO Last administered on 02/09/17 09:00 ; Admin Dose 2 MG; Start 02/04/17 at 21:15 Warfarin Sodium (Coumadin) 6 mg DAILY@17 PO Last administered on 02/08/17 17: 34; Admin Dose 6 MG; Start 02/05/17 at 17:00 Zolpidem Tartrate (Ambien) 5 mg HS PRN PO INSOMNIA Last administered on 22:46; Admin Dose 5 MG; Start 02/04/17 at 21:30 Miscellaneous Information 1 ea NOTE XX ; Start 02/04/17 at 21:30 Glucose (Glutose) 15 gm Q15M PRN PO DECREASED GLUCOSE; Start 02/04/17 at 21:30 Glucose (Glutose) 22.5 gm Q15M PRN PO DECREASED GLUCOSE; Start 02/04/17 at 21: 30 Dextrose (D50w Syringe) 25 ml Q15M PRN IV DECREASED GLUCOSE; Start 02/04/17 at 21:30 Dextrose (D50w Syringe) 50 ml Q15M PRN IV DECREASED GLUCOSE; Start 02/04/17 at 21:30 Glucagon (Glucagen) 1 mg Q15M PRN IM DECREASED GLUCOSE; Start 02/04/17 at 21:30 Glucose (Glutose) 15 gm Q15M PRN BUCCAL DECREASED GLUCOSE; Start 02/04/17 at 21 :30 Levofloxacin (Levaquin) 250 mg Q48H PO Last administered on 02/08/17 08:38; Admin Dose 250 MG; Start 02/08/17 at 09:00 Linezolid (Zyvox) 600 mg BID PO Last administered on 02/09/17 08:37; Admin Dose 600 MG; Start 02/08/17 at 21:00 Assessment/Plan Additional Assessment/Plan Rehab- lumbar radiculopathy and diskitis, status post transforaminal interbody fusion. Tolerating rehab program well TIA. End-stage renal disease, on hemodialysis. Diabetes mellitus. Diabetic nephropathy. Coronary artery disease. Hyperlipidemia. Anemia. Paroxysmal atrial fibrillation. Mineral bone disease. ALINE CORREIA MD Feb 09, 2017 12:13
--- NOTE | 2017-02-09 15:04 | CONS ---
Date/Time of Note Date/Time of Note DATE: 02/09/17 TIME: 15:03 Consult Date/Type/Reason Admit Date/Time Feb 04, 2017 at 20:01 Type of Consultation: CARDIOLOGY Subjective CARDIOLOGY FOLLOW UP NOTE Discussed with staff pt is on HD now. she denies any chest pain or pressure or palpitation to me. she has minimal back pain and is able to walk with PT now. objective: General: no acute distress HEENT: NC/AT. pupils are equal. round. NECK: NO JVD. no stridor. CV: RRR. systolic murmur; no gallop or rubs. PULM: no wheezing or rhonchi. GI: SOFT, NT, ND, no rebound or guarding Extremity: trace B/L LE edema. no clubbing. neuro: awake and alert, Psych: calm and pleasant rectal: deferred Objective Vital Signs Date Time Temp Pulse Resp B/P Pulse Ox O2 Delivery O2 Flow Rate FiO2 02/09/17 13:20 66 02/09/17 10:50 18 02/09/17 07:57 98.6 132/65 97 Room Air Intake and Output 02/08/17 02/08/17 02/09/17 15:00 23:00 07:00 Intake Total 200 ml Balance 200 ml Results/Medications Result Diagram: 02/09/17 0601 02/09/17 06 Results 24 hrs Laboratory Tests Test 02/08/17 17:42 02/08/17 21:16 02/09/17 06:01 02/09/17 08:05 Bedside Glucose 119 124 110 White Blood Count 8.5 Red Blood Count 2.84 L Hemoglobin 8.5 L Hematocrit 28.0 L Mean Corpuscular Volume 98.6 Mean Corpuscular Hemoglobin 29.9 Mean Corpuscular Hemoglobin Concent 30.4 L Red Cell Distribution Width 15.3 H Platelet Count 332 Mean Platelet Volume 8.3 Neutrophils % 61.6 Lymphocytes % 25.9 Monocytes % 6.5 Eosinophils % 4.7 Basophils % 0.7 Nucleated Red Blood Cells % 0.0 Neutrophils # 5.3 Lymphocytes # 2.2 Monocytes # 0.6 Eosinophils # 0.4 Basophils # 0.1 Nucleated Red Blood Cells # 0.0 Sodium Level 137 Potassium Level 5.0 Chloride Level 107 Carbon Dioxide Level 25 Anion Gap 10 Blood Urea Nitrogen 33 H Creatinine 3.12 H Glucose Level 88 Calcium Level 8.9 Phosphorus Level 5.4 H Magnesium Level 1.6 L Test 02/09/17 10:29 02/09/17 14:39 Prothrombin Time 16.7 H Prothrombin Time Ratio 1.3 INR International Normalized Ratio 1.34 Bedside Glucose 136 Medications Current Medications Diagnostic Test (Pha) (Accu-Chek) 1 ea 02 XX ; Start 02/05/17 at 02:00 Amlodipine Besylate (Norvasc) 10 mg DAILY PO Last administered on 02/08/17 08: 39; Admin Dose 10 MG; Start 02/05/17 at 09:00 Acetaminophen/ Hydrocodone Bitart ([place] (10/325)) 1 tab Q4H PRN PO 4-6 PAIN Last administered on 02/09/17 08:38; Admin Dose 1 TAB; Start 02/04/17 at 21:00 Aspirin (Aspirin) 162 mg DAILY PO Last administered on 02/09/17 08:38; Admin Dose 162 MG; Start 02/05/17 at 09:00 Atorvastatin Calcium (Lipitor) 80 mg QHS PO Last administered on 02/08/17 21: 05; Admin Dose 80 MG; Start 02/04/17 at 21:00 Bisacodyl (Dulcolax Supp) 10 mg Q24H PRN [place] CONSTIPATION; Start 02/04/17 at 21: 00 Clonidine (Catapres) 0.1 mg Q6H PRN PO ELEVATED SYSTOLIC BP Last administered on 02/08/17 06:23; Admin Dose 0.1 MG; Start 02/04/17 at 21:00 Docusate Sodium (Colace) 100 mg QHS PRN PO CONSTIPATION Last administered on 08:46; Admin Dose 100 MG; Start 02/04/17 at 21:00 Heparin Sodium (Porcine) (Heparin (5000 Units/0.5 ml)) 5,000 unit BID SC Last administered on 02/09/17 08:46; Admin Dose 5,000 UNIT; Start 02/04/17 at 21:00 Hydralazine HCl (Apresoline) 75 mg TID PO Last administered on 02/09/17 14:45 ; Admin Dose 75 MG; Start 02/04/17 at 21:00 Lactulose (Enulose) 20 gm DAILY PRN PO CONSTIPATION; Start 02/04/17 at 21:00 Lidocaine (Lidoderm) 1 patch QPM TD Last administered on 02/08/17 21:03; Admin Dose 1 PATCH; Start 02/04/17 at 21:00 Lubiprostone (Amitiza) 24 mcg BID PO Last administered on 02/09/17 08:38; Admin Dose 24 MCG; Start 02/04/17 at 21:30 Metoclopramide HCl (Reglan) 5 mg BID PO Last administered on 02/09/17 08:39; Admin Dose 5 MG; Start 02/04/17 at 21:00 Metoprolol Tartrate (Lopressor) 100 mg BID PO Last administered on 02/08/17 21 :04; Admin Dose 100 MG; Start 02/04/17 at 21:00 Morphine Sulfate (morphine) 2 mg Q3H PRN IV PAIN LEVEL 6-10 Last administered on 02/09/17 09:50; Admin Dose 2 MG; Start 02/04/17 at 21:00 Naloxone HCl (Narcan) 0.2 mg Q2M PRN IV RR 8 BREATHS/MIN OR LESS; Start at 21:00 Nitroglycerin (Nitroglycerin 2% Oint) 1 inch Q6 TD Last administered on 14:45; Admin Dose 1 INCH; Start 02/05/17 at 00:00 Ondansetron HCl (Zofran Inj) 4 mg Q6H PRN IV NAUSEA AND/OR VOMITING; Start at 21:00 Oxycodone HCl (Oxycontin) 10 mg Q8 PO Last administered on 02/09/17 14:45; Admin Dose 10 MG; Start 02/04/17 at 22:00 Pantoprazole (Protonix Tab) 40 mg DAILY@06 PO Last administered on 02/09/17 05 :42; Admin Dose 40 MG; Start 02/05/17 at 06:00 Polyethylene Glycol (Miralax) 17 gm BID PO Last administered on 02/09/17 08:38 ; Admin Dose 17 GM; Start 02/04/17 at 21:00 IV Flush (NS 10 ml) 10 ml PRN PRN IV IV PROTOCOL Last administered on 00:41; Admin Dose 10 ML; Start 02/04/17 at 21:30 Senna (Senokot) 1 tab DAILY PO Last administered on 02/09/17 08:39; Admin Dose 1 TAB; Start 02/05/17 at 09:00 Sertraline HCl (Zoloft) 50 mg DAILY PO Last administered on 02/09/17 08:38; Admin Dose 50 MG; Start 02/05/17 at 09:00 Sodium Biphosphate/ Sodium Phosphate (Fleet Enema) 133 ml DAILY PRN [place] CONSTIPATION; Start 02/04/17 at 21:30 Tolterodine Tartrate (Detrol) 2 mg BID PO Last administered on 02/09/17 09:00 ; Admin Dose 2 MG; Start 02/04/17 at 21:15 Warfarin Sodium (Coumadin) 6 mg DAILY@17 PO Last administered on 02/08/17 17: 34; Admin Dose 6 MG; Start 02/05/17 at 17:00 Zolpidem Tartrate (Ambien) 5 mg HS PRN PO INSOMNIA Last administered on 22:46; Admin Dose 5 MG; Start 02/04/17 at 21:30 Miscellaneous Information 1 ea NOTE XX ; Start 02/04/17 at 21:30 Glucose (Glutose) 15 gm Q15M PRN PO DECREASED GLUCOSE; Start 02/04/17 at 21:30 Glucose (Glutose) 22.5 gm Q15M PRN PO DECREASED GLUCOSE; Start 02/04/17 at 21: 30 Dextrose (D50w Syringe) 25 ml Q15M PRN IV DECREASED GLUCOSE; Start 02/04/17 at 21:30 Dextrose (D50w Syringe) 50 ml Q15M PRN IV DECREASED GLUCOSE; Start 02/04/17 at 21:30 Glucagon (Glucagen) 1 mg Q15M PRN IM DECREASED GLUCOSE; Start 02/04/17 at 21:30 Glucose (Glutose) 15 gm Q15M PRN BUCCAL DECREASED GLUCOSE; Start 02/04/17 at 21 :30 Levofloxacin (Levaquin) 250 mg Q48H PO Last administered on 02/08/17 08:38; Admin Dose 250 MG; Start 02/08/17 at 09:00 Linezolid (Zyvox) 600 mg BID PO Last administered on 02/09/17 08:37; Admin Dose 600 MG; Start 02/08/17 at 21:00 Assessment/Plan Chief Complaint/Hosp Course 1. Paroxysmal atrial fibrillation. Currently appears to be remaining in sinus rhythm. 2. History of multiple cerebrovascular accidents (CVA). 3. Renal failure on dialysis. 4. Hypertension. 5. Chronic obstructive pulmonary disease (COPD). 6. History of spinal infection and s/p spinal surgery. 7. Anemia. 8. Dyslipidemia. 9. Diabetes. PLAN: Coumadin has been resumed, and is being adjusted by IM. We will continue with the current blood pressure medications. Dialysis will be continued as per renal. Physical therapy and rehabilitation. Antibiotic as per Internal Medicine and ID recommendations. Once the INR is therapeutic, aspirin will be discontinued as well. Thank you for this referral. I will Continue to follow along with you. TAMERA BAILEY MD [facility] Problems: TAMERA BAILEY MD Feb 09, 2017 15:03
--- NOTE | 2017-02-09 16:38 | CONS ---
Date/Time of Note Date/Time of Note DATE: 02/09/17 TIME: 16:36 Assessment/Plan Assessment/Plan Additional Assessment/Plan SUBJECTIVE DATA: No acute changes overnight. Patient is alert. Denies pain. No fevers. MICROBIOLOGY: Urine culture on February 05 grew Klebsiella and E coli ESBL as well as Enterococcus species. Of note, both Klebsiella and E coli susceptible to Levaquin. INDWELLINGS: Patient has PICC line and Perm-A-Cath. ANTIMICROBIALS: She is on Zyvox and Levaquin status post vanco, Rocephin. OBJECTIVE DATA: GENERAL: This is obese, well-developed, middle-aged woman who is awake, in no distress. HEENT: Head atraumatic, normocephalic. Sclerae anicteric. Buccal mucosa pink. NECK: Supple. CHEST: Rise symmetrical. Breath sounds diminished at the bases. HEART: S1, S2. ABDOMEN: Soft, bowel sounds present. EXTREMITIES: Without cyanosis. ASSESSMENT: 1. L5-S1 diskitis with radiculopathy, status post surgical intervention on January 22, 2017. 2. Positive urine cx==> no evidence of active infection. 3. End-stage renal disease, hemodialysis dependent. 4. Diabetes. 5. Anemia. 6. Hypertension. PLAN: Patient remains stable. Will order Fosfomycin dose, change abx back to Vanco and Rocephin. Continue present care. Consultation Date/Type/Reason Admit Date/Time Feb 04, 2017 at 20:01 Initial Consult Date Type of Consultation: id Exam/Review of Systems Vital Signs Vitals Vital Signs Date Time Temp Pulse Resp B/P Pulse Ox O2 Delivery O2 Flow Rate FiO2 02/09/17 13:20 66 02/09/17 10:50 18 02/09/17 07:57 98.6 132/65 97 Room Air Intake and Output 02/08/17 02/08/17 02/09/17 15:00 23:00 07:00 Intake Total 200 ml Balance 200 ml Results Result Diagram: 02/09/17 0601 02/09/17 0601 Results 24 hrs Laboratory Tests Test 02/08/17 17:42 02/08/17 21:16 02/09/17 06:01 02/09/17 08:05 Bedside Glucose 119 124 110 White Blood Count 8.5 Red Blood Count 2.84 L Hemoglobin 8.5 L Hematocrit 28.0 L Mean Corpuscular Volume 98.6 Mean Corpuscular Hemoglobin 29.9 Mean Corpuscular Hemoglobin Concent 30.4 L Red Cell Distribution Width 15.3 H Platelet Count 332 Mean Platelet Volume 8.3 Neutrophils % 61.6 Lymphocytes % 25.9 Monocytes % 6.5 Eosinophils % 4.7 Basophils % 0.7 Nucleated Red Blood Cells % 0.0 Neutrophils # 5.3 Lymphocytes # 2.2 Monocytes # 0.6 Eosinophils # 0.4 Basophils # 0.1 Nucleated Red Blood Cells # 0.0 Sodium Level 137 Potassium Level 5.0 Chloride Level 107 Carbon Dioxide Level 25 Anion Gap 10 Blood Urea Nitrogen 33 H Creatinine 3.12 H Glucose Level 88 Calcium Level 8.9 Phosphorus Level 5.4 H Magnesium Level 1.6 L Test 02/09/17 10:29 02/09/17 14:39 Prothrombin Time 16.7 H Prothrombin Time Ratio 1.3 INR International Normalized Ratio 1.34 Bedside Glucose 136 Medications Medications Current Medications Diagnostic Test (Pha) (Accu-Chek) 1 ea 02 XX ; Start 02/05/17 at 02:00 Amlodipine Besylate (Norvasc) 10 mg DAILY PO Last administered on 02/08/17 08: 39; Admin Dose 10 MG; Start 02/05/17 at 09:00 Acetaminophen/ Hydrocodone Bitart ([place] (10/325)) 1 tab Q4H PRN PO 4-6 PAIN Last administered on 02/09/17 08:38; Admin Dose 1 TAB; Start 02/04/17 at 21:00 Aspirin (Aspirin) 162 mg DAILY PO Last administered on 02/09/17 08:38; Admin Dose 162 MG; Start 02/05/17 at 09:00 Atorvastatin Calcium (Lipitor) 80 mg QHS PO Last administered on 02/08/17 21: 05; Admin Dose 80 MG; Start 02/04/17 at 21:00 Bisacodyl (Dulcolax Supp) 10 mg Q24H PRN [place] CONSTIPATION; Start 02/04/17 at 21: 00 Clonidine (Catapres) 0.1 mg Q6H PRN PO ELEVATED SYSTOLIC BP Last administered on 02/08/17 06:23; Admin Dose 0.1 MG; Start 02/04/17 at 21:00 Docusate Sodium (Colace) 100 mg QHS PRN PO CONSTIPATION Last administered on 08:46; Admin Dose 100 MG; Start 02/04/17 at 21:00 Heparin Sodium (Porcine) (Heparin (5000 Units/0.5 ml)) 5,000 unit BID SC Last administered on 02/09/17 08:46; Admin Dose 5,000 UNIT; Start 02/04/17 at 21:00 Hydralazine HCl (Apresoline) 75 mg TID PO Last administered on 02/09/17 14:45 ; Admin Dose 75 MG; Start 02/04/17 at 21:00 Lactulose (Enulose) 20 gm DAILY PRN PO CONSTIPATION; Start 02/04/17 at 21:00 Lidocaine (Lidoderm) 1 patch QPM TD Last administered on 02/08/17 21:03; Admin Dose 1 PATCH; Start 02/04/17 at 21:00 Lubiprostone (Amitiza) 24 mcg BID PO Last administered on 02/09/17 08:38; Admin Dose 24 MCG; Start 02/04/17 at 21:30 Metoclopramide HCl (Reglan) 5 mg BID PO Last administered on 02/09/17 08:39; Admin Dose 5 MG; Start 02/04/17 at 21:00 Metoprolol Tartrate (Lopressor) 100 mg BID PO Last administered on 02/08/17 21 :04; Admin Dose 100 MG; Start 02/04/17 at 21:00 Morphine Sulfate (morphine) 2 mg Q3H PRN IV PAIN LEVEL 6-10 Last administered on 02/09/17 09:50; Admin Dose 2 MG; Start 02/04/17 at 21:00 Naloxone HCl (Narcan) 0.2 mg Q2M PRN IV RR 8 BREATHS/MIN OR LESS; Start at 21:00 Nitroglycerin (Nitroglycerin 2% Oint) 1 inch Q6 TD Last administered on 14:45; Admin Dose 1 INCH; Start 02/05/17 at 00:00 Ondansetron HCl (Zofran Inj) 4 mg Q6H PRN IV NAUSEA AND/OR VOMITING; Start at 21:00 Oxycodone HCl (Oxycontin) 10 mg Q8 PO Last administered on 02/09/17 14:45; Admin Dose 10 MG; Start 02/04/17 at 22:00 Pantoprazole (Protonix Tab) 40 mg DAILY@06 PO Last administered on 02/09/17 05 :42; Admin Dose 40 MG; Start 02/05/17 at 06:00 Polyethylene Glycol (Miralax) 17 gm BID PO Last administered on 02/09/17 08:38 ; Admin Dose 17 GM; Start 02/04/17 at 21:00 IV Flush (NS 10 ml) 10 ml PRN PRN IV IV PROTOCOL Last administered on 00:41; Admin Dose 10 ML; Start 02/04/17 at 21:30 Senna (Senokot) 1 tab DAILY PO Last administered on 02/09/17 08:39; Admin Dose 1 TAB; Start 02/05/17 at 09:00 Sertraline HCl (Zoloft) 50 mg DAILY PO Last administered on 02/09/17 08:38; Admin Dose 50 MG; Start 02/05/17 at 09:00 Sodium Biphosphate/ Sodium Phosphate (Fleet Enema) 133 ml DAILY PRN [place] CONSTIPATION; Start 02/04/17 at 21:30 Tolterodine Tartrate (Detrol) 2 mg BID PO Last administered on 02/09/17 09:00 ; Admin Dose 2 MG; Start 02/04/17 at 21:15 Warfarin Sodium (Coumadin) 6 mg DAILY@17 PO Last administered on 02/08/17 17: 34; Admin Dose 6 MG; Start 02/05/17 at 17:00 Zolpidem Tartrate (Ambien) 5 mg HS PRN PO INSOMNIA Last administered on 22:46; Admin Dose 5 MG; Start 02/04/17 at 21:30 Miscellaneous Information 1 ea NOTE XX ; Start 02/04/17 at 21:30 Glucose (Glutose) 15 gm Q15M PRN PO DECREASED GLUCOSE; Start 02/04/17 at 21:30 Glucose (Glutose) 22.5 gm Q15M PRN PO DECREASED GLUCOSE; Start 02/04/17 at 21: 30 Dextrose (D50w Syringe) 25 ml Q15M PRN IV DECREASED GLUCOSE; Start 02/04/17 at 21:30 Dextrose (D50w Syringe) 50 ml Q15M PRN IV DECREASED GLUCOSE; Start 02/04/17 at 21:30 Glucagon (Glucagen) 1 mg Q15M PRN IM DECREASED GLUCOSE; Start 02/04/17 at 21:30 Glucose (Glutose) 15 gm Q15M PRN BUCCAL DECREASED GLUCOSE; Start 02/04/17 at 21 :30 Levofloxacin (Levaquin) 250 mg Q48H PO Last administered on 02/08/17 08:38; Admin Dose 250 MG; Start 02/08/17 at 09:00 Linezolid (Zyvox) 600 mg BID PO Last administered on 02/09/17 08:37; Admin Dose 600 MG; Start 02/08/17 at 21:00 Influenza Virus Vaccine (Fluzone) 0.5 ml ONCE ONCE IM* ; Start 02/09/17 at 17:00 ; Stop 02/09/17 at 17:01 ADALID LEO NP Feb 09, 2017 16:38
[2017-02-09] MEDS ORDERED: INFLUENZA VIRUS VACCINE 0.5 ML (DISPENSING) IM* ONE (17:00)
[2017-02-09] MEDS ORDERED: VANCOMYCIN IV PER PHARMACY XX SCH (17:00)
[2017-02-09] MEDS: WARFARIN 3 MG TAB PO SCH (17:33)
[2017-02-09] MEDS: CEFTRIAXONE 1 GM/50 ML (PMX) 50 ML IVPB SCH (21:00)
[2017-02-09] MEDS: LIDOCAINE 5% PATCH TD SCH (21:01)
[2017-02-09] MEDS: ZOLPIDEM 5 MG TAB PO PRN (21:02)
[2017-02-09] MEDS: ATORVASTATIN 80 MG TAB PO SCH (21:02)
[2017-02-10] MEDS: ACCU-CHEK XX SCH (02:00)
[2017-02-10] MEDS: NITROGLYCERIN 2% 1 GM OINT PKT TD SCH ×4 (06:40→17:55)
[2017-02-10] MEDS: PANTOPRAZOLE (EC) 40 MG TAB PO SCH (06:40)
[2017-02-10] MEDS: oxyCODONE (CR) 10 MG TAB [oxyCONTIN] PO SCH ×3 (06:40→21:33)
[2017-02-10] MEDS: INSULIN ASPART [NOVOLOG] 3 ML PEN SC SCH ×4 (07:35→20:33)
[2017-02-10 08:00] VITALS: BP 156/73; PULSE 68; RESP 20
[2017-02-10] MEDS: TOLTERODINE 2 MG TAB PO SCH ×2 (08:40→20:31)
[2017-02-10] MEDS: HEPARIN 5,000 UNIT/0.5 ML VIAL SC SCH ×2 (08:41→20:46)
[2017-02-10] MEDS: POLYETHYLENE GLYCOL 17 GM PACKET PO SCH ×2 (08:41→20:32)
[2017-02-10] MEDS: LUBIPROSTONE 24 MCG CAP PO SCH ×2 (08:41→20:31)
[2017-02-10] MEDS: SEVELAMER 800 MG TAB PO SCH ×3 (08:41→17:27)
[2017-02-10] MEDS: LEVOFLOXACIN 250 MG TAB PO SCH (08:42)
[2017-02-10] MEDS: ASPIRIN 81 MG TAB PO SCH (08:42)
[2017-02-10] MEDS: METOCLOPRAMIDE 10 MG TAB PO SCH ×2 (08:42→20:31)
[2017-02-10] MEDS: SENNA TAB PO SCH (08:42)
[2017-02-10] MEDS: AMLODIPINE 10 MG TAB PO SCH (08:42)
[2017-02-10] MEDS: SERTRALINE 50 MG TAB PO SCH (08:42)
--- NOTE | 2017-02-10 08:42 | CONS ---
Date/Time of Note Date/Time of Note DATE: 02/10/17 TIME: 08:41 Consult Date/Type/Reason Admit Date/Time Feb 04, 2017 at 20:01 Type of Consultation: CARDIOLOGY Subjective CARDIOLOGY FOLLOW UP NOTE Discussed with staff she denies any chest pain or pressure or palpitation to me. she has minimal back pain and is able to walk with PT now. objective: General: no acute distress HEENT: NC/AT. pupils are equal. round. NECK: NO JVD. no stridor. CV: RRR. systolic murmur; no gallop or rubs. PULM: no wheezing or rhonchi. GI: SOFT, NT, ND, no rebound or guarding Extremity: trace B/L LE edema. no clubbing. neuro: awake and alert, Psych: calm and pleasant rectal: deferred Objective Vital Signs Date Time Temp Pulse Resp B/P Pulse Ox O2 Delivery O2 Flow Rate FiO2 02/09/17 20:54 98.5 76 17 139/65 95 Room Air Intake and Output 02/09/17 02/09/17 02/10/17 15:00 23:00 07:00 Intake Total 300 ml 240 ml Output Total 3300 ml Balance -3000 ml 240 ml Results/Medications Result Diagram: 02/09/17 0601 02/09/17 0601 Results 24 hrs Laboratory Tests Test 02/09/17 10:29 02/09/17 14:39 02/09/17 17:15 02/09/17 20:58 Prothrombin Time 16.7 H Prothrombin Time Ratio 1.3 INR International Normalized Ratio 1.34 Bedside Glucose 136 136 128 Test 02/10/17 08:10 Bedside Glucose 89 Medications Current Medications Diagnostic Test (Pha) (Accu-Chek) 1 ea 02 XX ; Start 02/05/17 at 02:00 Amlodipine Besylate (Norvasc) 10 mg DAILY PO Last administered on 02/08/17 08: 39; Admin Dose 10 MG; Start 02/05/17 at 09:00 Acetaminophen/ Hydrocodone Bitart ([place] (10/325)) 1 tab Q4H PRN PO 4-6 PAIN Last administered on 02/09/17 17:32; Admin Dose 1 TAB; Start 02/04/17 at 21:00 Aspirin (Aspirin) 162 mg DAILY PO Last administered on 02/09/17 08:38; Admin Dose 162 MG; Start 02/05/17 at 09:00 Atorvastatin Calcium (Lipitor) 80 mg QHS PO Last administered on 02/09/17 21: 02; Admin Dose 80 MG; Start 02/04/17 at 21:00 Bisacodyl (Dulcolax Supp) 10 mg Q24H PRN [place] CONSTIPATION; Start 02/04/17 at 21: 00 Clonidine (Catapres) 0.1 mg Q6H PRN PO ELEVATED SYSTOLIC BP Last administered on 02/08/17 06:23; Admin Dose 0.1 MG; Start 02/04/17 at 21:00 Docusate Sodium (Colace) 100 mg QHS PRN PO CONSTIPATION Last administered on 08:46; Admin Dose 100 MG; Start 02/04/17 at 21:00 Heparin Sodium (Porcine) (Heparin (5000 Units/0.5 ml)) 5,000 unit BID SC Last administered on 02/09/17 21:22; Admin Dose 5,000 UNIT; Start 02/04/17 at 21:00 Hydralazine HCl (Apresoline) 75 mg TID PO Last administered on 02/09/17 21:02 ; Admin Dose 75 MG; Start 02/04/17 at 21:00 Lactulose (Enulose) 20 gm DAILY PRN PO CONSTIPATION; Start 02/04/17 at 21:00 Lidocaine (Lidoderm) 1 patch QPM TD Last administered on 02/09/17 21:01; Admin Dose 1 PATCH; Start 02/04/17 at 21:00 Lubiprostone (Amitiza) 24 mcg BID PO Last administered on 02/09/17 21:01; Admin Dose 24 MCG; Start 02/04/17 at 21:30 Metoclopramide HCl (Reglan) 5 mg BID PO Last administered on 02/09/17 21:03; Admin Dose 5 MG; Start 02/04/17 at 21:00 Metoprolol Tartrate (Lopressor) 100 mg BID PO Last administered on 02/09/17 21 :03; Admin Dose 100 MG; Start 02/04/17 at 21:00 Morphine Sulfate (morphine) 2 mg Q3H PRN IV PAIN LEVEL 6-10 Last administered on 02/09/17 21:05; Admin Dose 2 MG; Start 02/04/17 at 21:00 Naloxone HCl (Narcan) 0.2 mg Q2M PRN IV RR 8 BREATHS/MIN OR LESS; Start at 21:00 Nitroglycerin (Nitroglycerin 2% Oint) 1 inch Q6 TD Last administered on 06:40; Admin Dose 1 INCH; Start 02/05/17 at 00:00 Ondansetron HCl (Zofran Inj) 4 mg Q6H PRN IV NAUSEA AND/OR VOMITING; Start at 21:00 Oxycodone HCl (Oxycontin) 10 mg Q8 PO Last administered on 02/10/17 06:40; Admin Dose 10 MG; Start 02/04/17 at 22:00 Pantoprazole (Protonix Tab) 40 mg DAILY@06 PO Last administered on 02/10/17 06 :40; Admin Dose 40 MG; Start 02/05/17 at 06:00 Polyethylene Glycol (Miralax) 17 gm BID PO Last administered on 02/09/17 08:38 ; Admin Dose 17 GM; Start 02/04/17 at 21:00 IV Flush (NS 10 ml) 10 ml PRN PRN IV IV PROTOCOL Last administered on 00:41; Admin Dose 10 ML; Start 02/04/17 at 21:30 Senna (Senokot) 1 tab DAILY PO Last administered on 02/09/17 08:39; Admin Dose 1 TAB; Start 02/05/17 at 09:00 Sertraline HCl (Zoloft) 50 mg DAILY PO Last administered on 02/09/17 08:38; Admin Dose 50 MG; Start 02/05/17 at 09:00 Sodium Biphosphate/ Sodium Phosphate (Fleet Enema) 133 ml DAILY PRN [place] CONSTIPATION; Start 02/04/17 at 21:30 Tolterodine Tartrate (Detrol) 2 mg BID PO Last administered on 02/09/17 09:00 ; Admin Dose 2 MG; Start 02/04/17 at 21:15 Warfarin Sodium (Coumadin) 6 mg DAILY@17 PO Last administered on 02/09/17 17: 33; Admin Dose 6 MG; Start 02/05/17 at 17:00 Zolpidem Tartrate (Ambien) 5 mg HS PRN PO INSOMNIA Last administered on 21:02; Admin Dose 5 MG; Start 02/04/17 at 21:30 Miscellaneous Information 1 ea NOTE XX ; Start 02/04/17 at 21:30 Glucose (Glutose) 15 gm Q15M PRN PO DECREASED GLUCOSE; Start 02/04/17 at 21:30 Glucose (Glutose) 22.5 gm Q15M PRN PO DECREASED GLUCOSE; Start 02/04/17 at 21: 30 Dextrose (D50w Syringe) 25 ml Q15M PRN IV DECREASED GLUCOSE; Start 02/04/17 at 21:30 Dextrose (D50w Syringe) 50 ml Q15M PRN IV DECREASED GLUCOSE; Start 02/04/17 at 21:30 Glucagon (Glucagen) 1 mg Q15M PRN IM DECREASED GLUCOSE; Start 02/04/17 at 21:30 Glucose (Glutose) 15 gm Q15M PRN BUCCAL DECREASED GLUCOSE; Start 02/04/17 at 21 :30 Levofloxacin 250 mg 250 mg Q48H PO Last administered on 02/08/17 08:38; Admin Dose 250 MG; Start 02/08/17 at 09:00 Ceftriaxone Sodium (Rocephin) 50 ml @ 100 mls/hr Q24H IVPB Last administered on 02/09/17 21:00; Admin Dose 100 MLS/HR; Start 02/09/17 at 17:00 Assessment/Plan Chief Complaint/Hosp Course 1. Paroxysmal atrial fibrillation. Currently appears to be remaining in sinus rhythm. 2. History of multiple cerebrovascular accidents (CVA). 3. Renal failure on dialysis. 4. Hypertension. 5. Chronic obstructive pulmonary disease (COPD). 6. History of spinal infection and s/p spinal surgery. 7. Anemia. 8. Dyslipidemia. 9. Diabetes. PLAN: Coumadin has been resumed, and is being adjusted by IM. We will continue with the current blood pressure medications. Dialysis will be continued as per renal. Physical therapy and rehabilitation. Antibiotic as per Internal Medicine and ID recommendations. Once the INR is therapeutic, aspirin will be discontinued as well. Thank you for this referral. I will Continue to follow along with you. TAMERA BAILEY MD [facility] Problems: TAMERA BAILEY MD Feb 10, 2017 08:42
[2017-02-10] MEDS: HYDROCODONE/APAP (10/325) TAB PO PRN ×2 (08:43→18:35)
[2017-02-10] MEDS: METOPROLOL 100 MG TAB PO SCH ×2 (08:44→20:32)
[2017-02-10 11:39] LABS: INR 1.41; PROTIME 17.3 Sec (12.2-14.2); PT RATIO 1.4
--- NOTE | 2017-02-10 12:21 | PN ---
DATE: 02/10/2017 SUBJECTIVE: The patient had hemodialysis yesterday, tolerated well without any complications. No a cute events noted. No hemoptysis, hematemesis or hematochezia. OBJECTIVE: VITAL SIGNS: Blood pressure is 139/65, respirations 17, pulse 76, temperature 98.5. HEENT: Head is normocephalic. NECK: Supple. HEART: Regular rate. LUNGS: Show diminished breath sounds at base. ABDOMEN: Soft, nontender to palpation without rebound or guarding. EXTREMITIES: Negative for clubbing, cyanosis. No edema. DERMATOLOGIC: No rashes. MUSCULOSKELETAL: No joint effusions. NEUROLOGIC: No change in exam. MEDICATIONS: The patient's medications have been reviewed. LABORATORY DATA: Has been reviewed. The patient's INR is thought to be 1.34. ASSESSMENT AND PLAN: 1. Diskitis L5-S1 with radiculopathy. The patient is status post transforaminal lumbar interbody f usion. The patient is currently stable. Continue current antibiotic regimen . 2. Chronic back pain, improved. 3. End-stage renal disease. Plan for hemodialysis tomorrow. 4. Hypertension. Continue current blood pressure regimen. 5. Atrial fibrillation. Continue medical management. Continue Coumadin. INR not nearing goal. 6 . Status post TIA. 7. Anemia. Continue to monitor hemoglobin and hematocrit levels. 8. Mineral bone disorder. Monitor calcium and phosphorus levels. 9. Diabetes. Continue Accu-Cheks and sliding scale. 10. Hypomagnesemia. Continue to monitor. Dictated By: SAM THOMPSON/MERI Conf#: [id number] DID#: [id number]
--- NOTE | 2017-02-10 12:25 | CONS ---
Date/Time of Note Date/Time of Note DATE: 02/10/17 TIME: 12:24 Consult Date/Type/Reason Admit Date/Time Feb 04, 2017 at 20:01 Type of Consultation: CARDIOLOGY Subjective Doing well Objective pulm-cta cga ambulation Vital Signs Date Time Temp Pulse Resp B/P Pulse Ox O2 Delivery O2 Flow Rate FiO2 02/10/17 08:00 98.3 68 20 156/73 97 Room Air Intake and Output 02/09/17 02/09/17 02/10/17 14:59 22:59 06:59 Intake Total 300 ml 240 ml Output Total 3300 ml Balance -3000 ml 240 ml Results/Medications Result Diagram: 02/09/17 0602/09/17 06 Results 24 hrs Laboratory Tests Test 02/09/17 14:39 02/09/17 17:15 02/09/17 20:58 02/10/17 08:10 Bedside Glucose 136 136 128 89 Test 02/10/17 10:51 02/10/17 12:13 Prothrombin Time 17.3 H Prothrombin Time Ratio 1.4 INR International Normalized Ratio 1.41 Bedside Glucose 120 Medications Current Medications Diagnostic Test (Pha) (Accu-Chek) 1 ea 02 XX ; Start 02/05/17 at 02:00 Amlodipine Besylate (Norvasc) 10 mg DAILY PO Last administered on 02/10/17 08: 42; Admin Dose 10 MG; Start 02/05/17 at 09:00 Acetaminophen/ Hydrocodone Bitart ([place] (10/325)) 1 tab Q4H PRN PO 4-6 PAIN Last administered on 02/10/17 08:43; Admin Dose 1 TAB; Start 02/04/17 at 21:00 Aspirin (Aspirin) 162 mg DAILY PO Last administered on 02/10/17 08:42; Admin Dose 162 MG; Start 02/05/17 at 09:00 Atorvastatin Calcium (Lipitor) 80 mg QHS PO Last administered on 02/09/17 21: 02; Admin Dose 80 MG; Start 02/04/17 at 21:00 Bisacodyl (Dulcolax Supp) [address] CONSTIPATION; Start 02/04/17 at 21: 00 Clonidine (Catapres) 0.1 mg Q6H PRN PO ELEVATED SYSTOLIC BP Last administered on 02/08/17 06:23; Admin Dose 0.1 MG; Start 02/04/17 at 21:00 Docusate Sodium (Colace) 100 mg QHS PRN PO CONSTIPATION Last administered on 08:46; Admin Dose 100 MG; Start 02/04/17 at 21:00 Heparin Sodium (Porcine) (Heparin (5000 Units/0.5 ml)) 5,000 unit BID SC Last administered on 02/10/17 08:41; Admin Dose 5,000 UNIT; Start 02/04/17 at 21:00 Hydralazine HCl (Apresoline) 75 mg TID PO Last administered on 02/10/17 08:43 ; Admin Dose 75 MG; Start 02/04/17 at 21:00 Lactulose (Enulose) 20 gm DAILY PRN PO CONSTIPATION; Start 02/04/17 at 21:00 Lidocaine (Lidoderm) 1 patch QPM TD Last administered on 02/09/17 21:01; Admin Dose 1 PATCH; Start 02/04/17 at 21:00 Lubiprostone (Amitiza) 24 mcg BID PO Last administered on 02/10/17 08:41; Admin Dose 24 MCG; Start 02/04/17 at 21:30 Metoclopramide HCl (Reglan) 5 mg BID PO Last administered on 02/10/17 08:42; Admin Dose 5 MG; Start 02/04/17 at 21:00 Metoprolol Tartrate (Lopressor) 100 mg BID PO Last administered on 02/10/17 08 :44; Admin Dose 100 MG; Start 02/04/17 at 21:00 Morphine Sulfate (morphine) 2 mg Q3H PRN IV PAIN LEVEL 6-10 Last administered on 02/09/17 21:05; Admin Dose 2 MG; Start 02/04/17 at 21:00 Naloxone HCl (Narcan) 0.2 mg Q2M PRN IV RR 8 BREATHS/MIN OR LESS; Start at 21:00 Nitroglycerin (Nitroglycerin 2% Oint) 1 inch Q6 TD Last administered on 06:40; Admin Dose 1 INCH; Start 02/05/17 at 00:00 Ondansetron HCl (Zofran Inj) 4 mg Q6H PRN IV NAUSEA AND/OR VOMITING; Start at 21:00 Oxycodone HCl (Oxycontin) 10 mg Q8 PO Last administered on 02/10/17 06:40; Admin Dose 10 MG; Start 02/04/17 at 22:00 Pantoprazole (Protonix Tab) 40 mg DAILY@06 PO Last administered on 02/10/17 06 :40; Admin Dose 40 MG; Start 02/05/17 at 06:00 Polyethylene Glycol (Miralax) 17 gm BID PO Last administered on 02/10/17 08:41 ; Admin Dose 17 GM; Start 02/04/17 at 21:00 IV Flush (NS 10 ml) 10 ml PRN PRN IV IV PROTOCOL Last administered on 00:41; Admin Dose 10 ML; Start 02/04/17 at 21:30 Senna (Senokot) 1 tab DAILY PO Last administered on 02/10/17 08:42; Admin Dose 1 TAB; Start 02/05/17 at 09:00 Sertraline HCl (Zoloft) 50 mg DAILY PO Last administered on 02/10/17 08:42; Admin Dose 50 MG; Start 02/05/17 at 09:00 Sodium Biphosphate/ Sodium Phosphate (Fleet Enema) [address] CONSTIPATION; Start 02/04/17 at 21:30 Tolterodine Tartrate (Detrol) 2 mg BID PO Last administered on 02/10/17 08:40 ; Admin Dose 2 MG; Start 02/04/17 at 21:15 Zolpidem Tartrate (Ambien) 5 mg HS PRN PO INSOMNIA Last administered on 21:02; Admin Dose 5 MG; Start 02/04/17 at 21:30 Miscellaneous Information 1 ea NOTE XX ; Start 02/04/17 at 21:30 Glucose (Glutose) 15 gm Q15M PRN PO DECREASED GLUCOSE; Start 02/04/17 at 21:30 Glucose (Glutose) 22.5 gm Q15M PRN PO DECREASED GLUCOSE; Start 02/04/17 at 21: 30 Dextrose (D50w Syringe) 25 ml Q15M PRN IV DECREASED GLUCOSE; Start 02/04/17 at 21:30 Dextrose (D50w Syringe) 50 ml Q15M PRN IV DECREASED GLUCOSE; Start 02/04/17 at 21:30 Glucagon (Glucagen) 1 mg Q15M PRN IM DECREASED GLUCOSE; Start 02/04/17 at 21:30 Glucose (Glutose) 15 gm Q15M PRN BUCCAL DECREASED GLUCOSE; Start 02/04/17 at 21 :30 Levofloxacin 250 mg 250 mg Q48H PO Last administered on 02/10/17 08:42; Admin Dose 250 MG; Start 02/08/17 at 09:00 Ceftriaxone Sodium (Rocephin) 50 ml @ 100 mls/hr Q24H IVPB Last administered on 02/09/17 21:00; Admin Dose 100 MLS/HR; Start 02/09/17 at 17:00 Warfarin Sodium (Coumadin) 2 mg DAILY@17 PO ; Start 02/10/17 at 17:00 Warfarin Sodium (Coumadin) 5 mg DAILY@17 PO ; Start 02/10/17 at 17:00 Assessment/Plan Additional Assessment/Plan Rehab- lumbar radiculopathy and diskitis, status post transforaminal interbody fusion. Progressing with rehab program TIA. End-stage renal disease, on hemodialysis. Diabetes mellitus. Diabetic nephropathy. Coronary artery disease. Hyperlipidemia. Anemia. Paroxysmal atrial fibrillation. Mineral bone disease. ALINE CORREIA MD Feb 10, 2017 12:25
[2017-02-10] MEDS: WARFARIN 2 MG TAB PO SCH (17:27)
[2017-02-10] MEDS: CEFTRIAXONE 1 GM/50 ML (PMX) 50 ML IVPB SCH (17:27)
[2017-02-10] MEDS: WARFARIN 5 MG TAB PO SCH (17:27)
[2017-02-10 19:38] VITALS: BP 136/62; RESP 18
[2017-02-10] MEDS: ATORVASTATIN 80 MG TAB PO SCH (20:31)
[2017-02-10] MEDS: LIDOCAINE 5% PATCH TD SCH (20:33)
[2017-02-10] MEDS: ZOLPIDEM 5 MG TAB PO PRN (21:32)
[2017-02-11] VITALS (9 sets, daily range): BP systolic 120–159; BP diastolic 67–86; PULSE 70–79; RESP 18
[2017-02-11] MEDS: ACCU-CHEK XX SCH (02:00)
[2017-02-11] MEDS: morphine 2 MG INJ IV PRN ×2 (02:19→18:18)
[2017-02-11] MEDS: PANTOPRAZOLE (EC) 40 MG TAB PO SCH (06:21)
[2017-02-11] MEDS: NITROGLYCERIN 2% 1 GM OINT PKT TD SCH ×4 (06:22→17:55)
[2017-02-11] MEDS: oxyCODONE (CR) 10 MG TAB [oxyCONTIN] PO SCH ×3 (06:22→21:05)
--- NOTE | 2017-02-11 07:06 | CONS ---
DATE OF ADMISSION: 02/04/2017 DATE OF CONSULTATION: 02/10/2017 TYPE OF CONSULTATION: Psychological. REFERRING PHYSICIAN: Aline Cole MD. CONSULTING PSYCHOLOGIST: Domenico Cronin, PhD. REASON FOR CONSULTATION: This consultation was requested by Dr. Mynor Cole in order to evaluate the cognitive and emotional functioning of this patient related to her present medical condition. HISTORY OF PRESENT ILLNESS: The patient is a 51-year-old female who has actually been hospitalized since 10/05/2016. He has been in numerous places. The patient was originally seen and consultation was done on her on 12/09/2016. The patient has had difficulty with numerous medical problems. The patient is depressed and admits to that. The patient has been on antidepressant medications for a long time. The patient has been dealing with things off and on in regard to depression for over 10 years. The patient did say that she became depressed when 3 family members in 1 year. Both he r mother, father, and brother all within the same year. The patient feels like she has never q uite recovered from all of that. The patient is motivated to get better and does want to finally be able to get out of the hospital and go back home. FAMILY AND SOCIAL HISTORY: The patient lives in an apartment in [place] with her . Th e patient has 2 daughters, ages 34 and 28, who come by to help. The patient does want to return [facility] after discharge. MEDICATIONS: The patient is currently on: 1. Zoloft 50 mg daily. 2. Ambien 5 mg at bedtime p.r.n. SUBSTANCE USE: The patient reports that she does not use alcohol or other drugs. The patient repor ts that she does not smoke. MENTAL STATUS EXAMINATION: APPEARANCE: The patient was seen in her wheelchair. She is of average height and overweight. The patient is right-handed. BEHAVIOR: The patient did attempt to answer all questions presented to him by the interviewer. The patient's was present during the evaluation with the patient's permission. MOOD AND AFFECT: The patient's mood appears to be depressed. Affect does appear to be slightly anx ious. The patient is aware of this and does admit to her depression and anxiety. PERCEPTION: The patient reports no hallucinations or delusions. The patient was alert to person, p lace, situation and time. MEMORY AND COGNITION: The patient's memory and cognition were basically intact. She was able to re member recent and remote events. The patient was able to say the name of the hospital. The patient was able to say the month and the year. The patient was able to state who the President of the [facility] is. The patient was able to come up with the names of the governor of the [employer] and the mayor of the city, but kind of got them mixed up but was able to recognize that when she was cued. The patient was able to spell 'world' backwards. The patient was able to do 2 serial 7 subtractions from 100, but then made an error. Overall, the patient's cognition appeared to be adequate given h er present medical problems. INTELLIGENCE: Intelligence appears to fall in the average range. INSIGHT: Fair. JUDGMENT: Fair. THOUGHT CONTENT: The patient is concerned about her present medical condition. The patient does wa nt to return to her previous level of functioning and finally be able to leave the hospital and go h ome. The patient is depressed and is aware of this, but she does believe she is making improvement. DISCUSSION: The patient can likely benefit from some cognitive/behavioral psychotherapy while she i s on the unit. This psychotherapy would focus on her ability to cope with all her medical problems. It would focus also on her underlying level of anxiety and depression. Patient was seen in follow up 2 different times while she was on the unit in December and will be seen next week if she is still on the unit. DIAGNOSTIC IMPRESSION: F33.1, major depressive disorder, recurrent, moderate. Thank you very much, Dr. Mynor Cole, for referring this individual. Please do not hesitate to ca ll if you have additional questions. Dictated By: DOMENICO CRONIN PHD MICHELLE/MERI Conf#: [id number] DID#: [id number] CC: ALINE COLE MD;*EndCC*
[2017-02-11] MEDS: INSULIN ASPART [NOVOLOG] 3 ML PEN SC SCH ×4 (07:35→21:00)
--- NOTE | 2017-02-11 09:06 | CONS ---
Date/Time of Note Date/Time of Note DATE: 02/11/17 TIME: 09:04 Consult Date/Type/Reason Admit Date/Time Feb 04, 2017 at 20:01 Type of Consultation: CARDIOLOGY Subjective CARDIOLOGY FOLLOW UP NOTE Discussed with staff and she denies any chest pain or pressure or palpitation to me. she denies back pain and states she is able to walk better now. no bleeding objective: General: no acute distress HEENT: NC/AT. pupils are equal. round. NECK: NO JVD. no stridor. CV: RRR. systolic murmur; no gallop or rubs. PULM: no wheezing or rhonchi. GI: SOFT, NT, ND, no rebound or guarding Extremity: trace B/L LE edema. no clubbing. neuro: awake and alert, Psych: calm and pleasant rectal: deferred Derm: multiple tattoos. Objective Vital Signs Date Time Temp Pulse Resp B/P Pulse Ox O2 Delivery O2 Flow Rate FiO2 02/11/17 02:00 97.6 69 18 124/70 97 02/10/17 08:00 Room Air Intake and Output 02/10/17 02/10/17 02/11/17 15:00 23:00 07:00 Intake Total 650 ml 800 ml Output Total 500 ml Balance 650 ml 300 ml Results/Medications Result Diagram: 02/09/17 0602/09/17 06 Results 24 hrs Laboratory Tests Test 02/10/17 10:51 02/10/17 12:13 02/10/17 17:25 02/10/17 20:30 Prothrombin Time 17.3 H Prothrombin Time Ratio 1.4 INR International Normalized Ratio 1.41 Bedside Glucose 120 108 145 Test 02/11/17 06:51 02/11/17 08:22 Random Vancomycin Level 11.5 Bedside Glucose 82 Medications Current Medications Diagnostic Test (Pha) (Accu-Chek) 1 ea 02 XX ; Start 02/05/17 at 02:00 Amlodipine Besylate (Norvasc) 10 mg DAILY PO Last administered on 02/10/17 08: 42; Admin Dose 10 MG; Start 02/05/17 at 09:00 Acetaminophen/ Hydrocodone Bitart ([place] (10/325)) 1 tab Q4H PRN PO 4-6 PAIN Last administered on 02/10/17 18:35; Admin Dose 1 TAB; Start 02/04/17 at 21:00 Aspirin (Aspirin) 162 mg DAILY PO Last administered on 02/10/17 08:42; Admin Dose 162 MG; Start 02/05/17 at 09:00 Atorvastatin Calcium (Lipitor) 80 mg QHS PO Last administered on 02/10/17 20: 31; Admin Dose 80 MG; Start 02/04/17 at 21:00 Bisacodyl (Dulcolax Supp) 10 mg Q24H PRN [place] CONSTIPATION; Start 02/04/17 at 21: 00 Clonidine (Catapres) 0.1 mg Q6H PRN PO ELEVATED SYSTOLIC BP Last administered on 02/08/17 06:23; Admin Dose 0.1 MG; Start 02/04/17 at 21:00 Docusate Sodium (Colace) 100 mg QHS PRN PO CONSTIPATION Last administered on 08:46; Admin Dose 100 MG; Start 02/04/17 at 21:00 Heparin Sodium (Porcine) (Heparin (5000 Units/0.5 ml)) 5,000 unit BID SC Last administered on 02/10/17 20:46; Admin Dose 5,000 UNIT; Start 02/04/17 at 21:00 Hydralazine HCl (Apresoline) 75 mg TID PO Last administered on 02/10/17 20:31 ; Admin Dose 75 MG; Start 02/04/17 at 21:00 Lactulose (Enulose) 20 gm DAILY PRN PO CONSTIPATION; Start 02/04/17 at 21:00 Lidocaine (Lidoderm) 1 patch QPM TD Last administered on 02/10/17 20:33; Admin Dose 1 PATCH; Start 02/04/17 at 21:00 Lubiprostone (Amitiza) 24 mcg BID PO Last administered on 02/10/17 20:31; Admin Dose 24 MCG; Start 02/04/17 at 21:30 Metoclopramide HCl (Reglan) 5 mg BID PO Last administered on 02/10/17 20:31; Admin Dose 5 MG; Start 02/04/17 at 21:00 Metoprolol Tartrate (Lopressor) 100 mg BID PO Last administered on 02/10/17 20 :32; Admin Dose 100 MG; Start 02/04/17 at 21:00 Morphine Sulfate (morphine) 2 mg Q3H PRN IV PAIN LEVEL 6-10 Last administered on 02/11/17 02:19; Admin Dose 2 MG; Start 02/04/17 at 21:00 Naloxone HCl (Narcan) 0.2 mg Q2M PRN IV RR 8 BREATHS/MIN OR LESS; Start at 21:00 Nitroglycerin (Nitroglycerin 2% Oint) 1 inch Q6 TD Last administered on 06:22; Admin Dose 1 INCH; Start 02/05/17 at 00:00 Ondansetron HCl (Zofran Inj) 4 mg Q6H PRN IV NAUSEA AND/OR VOMITING; Start at 21:00 Oxycodone HCl (Oxycontin) 10 mg Q8 PO Last administered on 02/11/17 06:22; Admin Dose 10 MG; Start 02/04/17 at 22:00 Pantoprazole (Protonix Tab) 40 mg DAILY@06 PO Last administered on 02/11/17 06 :21; Admin Dose 40 MG; Start 02/05/17 at 06:00 Polyethylene Glycol (Miralax) 17 gm BID PO Last administered on 02/10/17 20:32 ; Admin Dose 17 GM; Start 02/04/17 at 21:00 IV Flush (NS 10 ml) 10 ml PRN PRN IV IV PROTOCOL Last administered on 00:41; Admin Dose 10 ML; Start 02/04/17 at 21:30 Senna (Senokot) 1 tab DAILY PO Last administered on 02/10/17 08:42; Admin Dose 1 TAB; Start 02/05/17 at 09:00 Sertraline HCl (Zoloft) 50 mg DAILY PO Last administered on 02/10/17 08:42; Admin Dose 50 MG; Start 02/05/17 at 09:00 Sodium Biphosphate/ Sodium Phosphate (Fleet Enema) 133 ml DAILY PRN [place] CONSTIPATION; Start 02/04/17 at 21:30 Tolterodine Tartrate (Detrol) 2 mg BID PO Last administered on 02/10/17 20:31 ; Admin Dose 2 MG; Start 02/04/17 at 21:15 Zolpidem Tartrate (Ambien) 5 mg HS PRN PO INSOMNIA Last administered on 10/4/ 17at 21:32; Admin Dose 5 MG; Start 02/04/17 at 21:30 Miscellaneous Information 1 ea NOTE XX ; Start 02/04/17 at 21:30 Glucose (Glutose) 15 gm Q15M PRN PO DECREASED GLUCOSE; Start 02/04/17 at 21:30 Glucose (Glutose) 22.5 gm Q15M PRN PO DECREASED GLUCOSE; Start 02/04/17 at 21: 30 Dextrose (D50w Syringe) 25 ml Q15M PRN IV DECREASED GLUCOSE; Start 02/04/17 at 21:30 Dextrose (D50w Syringe) 50 ml Q15M PRN IV DECREASED GLUCOSE; Start 02/04/17 at 21:30 Glucagon (Glucagen) 1 mg Q15M PRN IM DECREASED GLUCOSE; Start 02/04/17 at 21:30 Glucose (Glutose) 15 gm Q15M PRN BUCCAL DECREASED GLUCOSE; Start 02/04/17 at 21 :30 Levofloxacin 250 mg 250 mg Q48H PO Last administered on 02/10/17 08:42; Admin Dose 250 MG; Start 02/08/17 at 09:00 Ceftriaxone Sodium (Rocephin) 50 ml @ 100 mls/hr Q24H IVPB Last administered on 02/10/17 17:27; Admin Dose 100 MLS/HR; Start 02/09/17 at 17:00 Warfarin Sodium (Coumadin) 2 mg DAILY@17 PO Last administered on 02/10/17 17: 27; Admin Dose 2 MG; Start 02/10/17 at 17:00 Warfarin Sodium 5 mg 5 mg DAILY@17 PO Last administered on 02/10/17 17:27; Admin Dose 5 MG; Start 02/10/17 at 17:00 Vancomycin HCl (Vancocin) 250 ml @ 125 mls/hr ONCE ONCE IVPB ; Start 02/11/17 at 11:00; Stop 02/11/17 at 12:59 Assessment/Plan Chief Complaint/Hosp Course 1. Paroxysmal atrial fibrillation. Currently appears to be remaining in sinus rhythm. 2. History of multiple cerebrovascular accidents (CVA). 3. Renal failure on dialysis. 4. Hypertension. 5. Chronic obstructive pulmonary disease (COPD). 6. History of spinal infection and s/p spinal surgery. 7. Anemia. 8. Dyslipidemia. 9. Diabetes. PLAN: cont coumadin and adjust based on daily INR. We will continue with the current blood pressure medications. Dialysis will be continued as per renal. Physical therapy and rehabilitation. Antibiotic as per Internal Medicine and ID recommendations. Once the INR is therapeutic, aspirin will be discontinued as well. Thank you for this referral. I will Continue to follow along with you. TAMERA BAILEY MD [facility] Problems: TAMERA BAILEY MD Feb 11, 2017 09:06
[2017-02-11] MEDS: SENNA TAB PO SCH (09:37)
[2017-02-11] MEDS: TOLTERODINE 2 MG TAB PO SCH ×2 (09:37→20:59)
[2017-02-11] MEDS: ASPIRIN 81 MG TAB PO SCH (09:38)
[2017-02-11] MEDS: AMLODIPINE 10 MG TAB PO SCH (09:38)
[2017-02-11] MEDS: SERTRALINE 50 MG TAB PO SCH (09:38)
[2017-02-11] MEDS: SEVELAMER 800 MG TAB PO SCH ×3 (09:38→17:55)
[2017-02-11] MEDS: METOPROLOL 100 MG TAB PO SCH ×2 (09:39→21:00)
[2017-02-11] MEDS: METOCLOPRAMIDE 10 MG TAB PO SCH ×2 (09:39→21:00)
[2017-02-11] MEDS: LUBIPROSTONE 24 MCG CAP PO SCH ×2 (09:39→20:58)
[2017-02-11] MEDS: POLYETHYLENE GLYCOL 17 GM PACKET PO SCH ×2 (09:39→21:00)
[2017-02-11] MEDS: HEPARIN 5,000 UNIT/0.5 ML VIAL SC SCH ×2 (09:54→21:12)
[2017-02-11 10:25] LABS: INR 1.43; PROTIME 17.5 Sec (12.2-14.2); PT RATIO 1.4
[2017-02-11] MEDS: VANCOMYCIN 1 GM in NS 250 ML IVPB ONE (11:58)
[2017-02-11] MEDS: HYDROCODONE/APAP (10/325) TAB PO PRN ×2 (12:34→15:39)
--- NOTE | 2017-02-11 12:45 | CONS ---
Date/Time of Note Date/Time of Note DATE: 02/11/17 TIME: 12:43 Consult Date/Type/Reason Admit Date/Time Feb 04, 2017 at 20:01 Type of Consultation: CARDIOLOGY Objective Working with therapy, motivated Sba ambulation Vital Signs Date Time Temp Pulse Resp B/P Pulse Ox O2 Delivery O2 Flow Rate FiO2 02/11/17 07:00 98.7 73 18 143/67 92 02/10/17 08:00 Room Air Intake and Output 02/10/17 02/10/17 02/11/17 15:00 23:00 07:00 Intake Total 650 ml 800 ml Output Total 500 ml Balance 650 ml 300 ml Results/Medications Result Diagram: 02/09/17 0602/09/17 06 Results 24 hrs Laboratory Tests Test 02/10/17 17:25 02/10/17 20:30 02/11/17 06:51 02/11/17 08:22 Bedside Glucose 108 145 82 Random Vancomycin Level 11.5 Test 02/11/17 09:52 02/11/17 12:32 Prothrombin Time 17.5 H Prothrombin Time Ratio 1.4 INR International Normalized Ratio 1.43 Bedside Glucose 114 Medications Current Medications Diagnostic Test (Pha) (Accu-Chek) 1 ea 02 XX ; Start 02/05/17 at 02:00 Amlodipine Besylate (Norvasc) 10 mg DAILY PO Last administered on 02/11/17 09: 38; Admin Dose 10 MG; Start 02/05/17 at 09:00 Acetaminophen/ Hydrocodone Bitart ([place] (10/325)) 1 tab Q4H PRN PO 4-6 PAIN Last administered on 02/11/17 12:34; Admin Dose 1 TAB; Start 02/04/17 at 21:00 Aspirin (Aspirin) 162 mg DAILY PO Last administered on 02/11/17 09:38; Admin Dose 162 MG; Start 02/05/17 at 09:00 Atorvastatin Calcium (Lipitor) 80 mg QHS PO Last administered on 02/10/17 20: 31; Admin Dose 80 MG; Start 02/04/17 at 21:00 Bisacodyl (Dulcolax Supp) 10 mg Q24H PRN [place] CONSTIPATION; Start 02/04/17 at 21: 00 Clonidine (Catapres) 0.1 mg Q6H PRN PO ELEVATED SYSTOLIC BP Last administered on 02/08/17 06:23; Admin Dose 0.1 MG; Start 02/04/17 at 21:00 Docusate Sodium (Colace) 100 mg QHS PRN PO CONSTIPATION Last administered on 08:46; Admin Dose 100 MG; Start 02/04/17 at 21:00 Heparin Sodium (Porcine) (Heparin (5000 Units/0.5 ml)) 5,000 unit BID SC Last administered on 02/11/17 09:54; Admin Dose 5,000 UNIT; Start 02/04/17 at 21:00 Hydralazine HCl (Apresoline) 75 mg TID PO Last administered on 02/11/17 09:37 ; Admin Dose 75 MG; Start 02/04/17 at 21:00 Lactulose (Enulose) 20 gm DAILY PRN PO CONSTIPATION; Start 02/04/17 at 21:00 Lidocaine (Lidoderm) 1 patch QPM TD Last administered on 02/10/17 20:33; Admin Dose 1 PATCH; Start 02/04/17 at 21:00 Lubiprostone (Amitiza) 24 mcg BID PO Last administered on 02/11/17 09:39; Admin Dose 24 MCG; Start 02/04/17 at 21:30 Metoclopramide HCl (Reglan) 5 mg BID PO Last administered on 02/11/17 09:39; Admin Dose 5 MG; Start 02/04/17 at 21:00 Metoprolol Tartrate (Lopressor) 100 mg BID PO Last administered on 02/11/17 09 :39; Admin Dose 100 MG; Start 02/04/17 at 21:00 Morphine Sulfate (morphine) 2 mg Q3H PRN IV PAIN LEVEL 6-10 Last administered on 02/11/17 02:19; Admin Dose 2 MG; Start 02/04/17 at 21:00 Naloxone HCl (Narcan) 0.2 mg Q2M PRN IV RR 8 BREATHS/MIN OR LESS; Start at 21:00 Nitroglycerin (Nitroglycerin 2% Oint) 1 inch Q6 TD Last administered on 12:17; Admin Dose 1 INCH; Start 02/05/17 at 00:00 Ondansetron HCl (Zofran Inj) 4 mg Q6H PRN IV NAUSEA AND/OR VOMITING; Start at 21:00 Oxycodone HCl (Oxycontin) 10 mg Q8 PO Last administered on 02/11/17 06:22; Admin Dose 10 MG; Start 02/04/17 at 22:00 Pantoprazole (Protonix Tab) 40 mg DAILY@06 PO Last administered on 02/11/17 06 :21; Admin Dose 40 MG; Start 02/05/17 at 06:00 Polyethylene Glycol (Miralax) 17 gm BID PO Last administered on 02/11/17 09:39 ; Admin Dose 17 GM; Start 02/04/17 at 21:00 IV Flush (NS 10 ml) 10 ml PRN PRN IV IV PROTOCOL Last administered on 00:41; Admin Dose 10 ML; Start 02/04/17 at 21:30 Senna (Senokot) 1 tab DAILY PO Last administered on 02/11/17 09:37; Admin Dose 1 TAB; Start 02/05/17 at 09:00 Sertraline HCl (Zoloft) 50 mg DAILY PO Last administered on 02/11/17 09:38; Admin Dose 50 MG; Start 02/05/17 at 09:00 Sodium Biphosphate/ Sodium Phosphate (Fleet Enema) 133 ml DAILY PRN MD CONSTIPATION; Start 02/04/17 at 21:30 Tolterodine Tartrate (Detrol) 2 mg BID PO Last administered on 02/11/17 09:37 ; Admin Dose 2 MG; Start 02/04/17 at 21:15 Zolpidem Tartrate (Ambien) 5 mg HS PRN PO INSOMNIA Last administered on 21:32; Admin Dose 5 MG; Start 02/04/17 at 21:30 Miscellaneous Information 1 ea NOTE XX ; Start 02/04/17 at 21:30 Glucose (Glutose) 15 gm Q15M PRN PO DECREASED GLUCOSE; Start 02/04/17 at 21:30 Glucose (Glutose) 22.5 gm Q15M PRN PO DECREASED GLUCOSE; Start 02/04/17 at 21: 30 Dextrose (D50w Syringe) 25 ml Q15M PRN IV DECREASED GLUCOSE; Start 02/04/17 at 21:30 Dextrose (D50w Syringe) 50 ml Q15M PRN IV DECREASED GLUCOSE; Start 02/04/17 at 21:30 Glucagon (Glucagen) 1 mg Q15M PRN IM DECREASED GLUCOSE; Start 02/04/17 at 21:30 Glucose (Glutose) 15 gm Q15M PRN BUCCAL DECREASED GLUCOSE; Start 02/04/17 at 21 :30 Levofloxacin 250 mg 250 mg Q48H PO Last administered on 02/10/17 08:42; Admin Dose 250 MG; Start 02/08/17 at 09:00 Ceftriaxone Sodium (Rocephin) 50 ml @ 100 mls/hr Q24H IVPB Last administered on 02/10/17 17:27; Admin Dose 100 MLS/HR; Start 02/09/17 at 17:00 Warfarin Sodium (Coumadin) 2 mg DAILY@17 PO Last administered on 02/10/17 17: 27; Admin Dose 2 MG; Start 02/10/17 at 17:00 Warfarin Sodium 5 mg 5 mg DAILY@17 PO Last administered on 02/10/17 17:27; Admin Dose 5 MG; Start 02/10/17 at 17:00 Vancomycin HCl (Vancocin) 250 ml @ 125 mls/hr ONCE ONCE IVPB Last administered on 02/11/17 11:58; Admin Dose 125 MLS/HR; Start 02/11/17 at 11:00 ; Stop 02/11/17 at 12:59 Assessment/Plan Additional Assessment/Plan Rehab- lumbar radiculopathy and diskitis, status post transforaminal interbody fusion. Continue rehab program TIA. End-stage renal disease, on hemodialysis. Diabetes mellitus. Diabetic nephropathy. Coronary artery disease. Hyperlipidemia. Anemia. Paroxysmal atrial fibrillation. Mineral bone disease. ALINE CORREIA MD Feb 11, 2017 12:45
--- NOTE | 2017-02-11 13:54 | CONS ---
Date/Time of Note Date/Time of Note DATE: 02/11/17 TIME: 13:49 Assessment/Plan Assessment/Plan Chief Complaint/Hosp Course SUBJECTIVE DATA: No acute changes overnight. Patient is alert. Denies pain. No fevers. MICROBIOLOGY: Urine culture on February 05 grew Klebsiella and E coli ESBL as well as Enterococcus species. Of note, both Klebsiella and E coli susceptible to Levaquin. INDWELLINGS: Patient has PICC line and Perm-A-Cath. ANTIMICROBIALS: Vanco, Rocephin, Levaquin OBJECTIVE DATA: GENERAL: This is obese, well-developed, middle-aged woman who is awake, in no distress. HEENT: Head atraumatic, normocephalic. Sclerae anicteric. Buccal mucosa pink. NECK: Supple. CHEST: Rise symmetrical. Breath sounds diminished at the bases. HEART: S1, S2. ABDOMEN: Soft, bowel sounds present. EXTREMITIES: Without cyanosis. ASSESSMENT: 1. L5-S1 diskitis with radiculopathy, status post surgical intervention on January 22, 2017. 2. Positive urine cx==> no evidence of active infection. 3. End-stage renal disease, hemodialysis dependent. 4. Diabetes. 5. Anemia. 6. Hypertension. PLAN: Patient remains stable. Dc Levaquin, continue abx to complete 6 weeks for discitis DW staff Problems: Consultation Date/Type/Reason Admit Date/Time Feb 04, 2017 at 20:01 Type of Consultation: ID Exam/Review of Systems Vital Signs Vitals Vital Signs Date Time Temp Pulse Resp B/P Pulse Ox O2 Delivery O2 Flow Rate FiO2 02/11/17 07:00 98.7 73 18 143/67 92 02/10/17 08:00 Room Air Intake and Output 02/10/17 02/10/17 02/11/17 15:00 23:00 07:00 Intake Total 650 ml 800 ml Output Total 500 ml Balance 650 ml 300 ml Results Result Diagram: 02/09/17 0602/09/17 06 Results 24 hrs Laboratory Tests Test 02/10/17 17:25 02/10/17 20:30 02/11/17 06:51 02/11/17 08:22 Bedside Glucose 108 145 82 Random Vancomycin Level 11.5 Test 02/11/17 09:52 02/11/17 12:32 Prothrombin Time 17.5 H Prothrombin Time Ratio 1.4 INR International Normalized Ratio 1.43 Bedside Glucose 114 Medications Medications Current Medications Diagnostic Test (Pha) (Accu-Chek) 1 ea 02 XX ; Start 02/05/17 at 02:00 Amlodipine Besylate (Norvasc) 10 mg DAILY PO Last administered on 02/11/17 09: 38; Admin Dose 10 MG; Start 02/05/17 at 09:00 Acetaminophen/ Hydrocodone Bitart ([place] (10/325)) 1 tab Q4H PRN PO 4-6 PAIN Last administered on 02/11/17 12:34; Admin Dose 1 TAB; Start 02/04/17 at 21:00 Aspirin (Aspirin) 162 mg DAILY PO Last administered on 02/11/17 09:38; Admin Dose 162 MG; Start 02/05/17 at 09:00 Atorvastatin Calcium (Lipitor) 80 mg QHS PO Last administered on 02/10/17 20: 31; Admin Dose 80 MG; Start 02/04/17 at 21:00 Bisacodyl (Dulcolax Supp) 10 mg Q24H PRN [place] CONSTIPATION; Start 02/04/17 at 21: 00 Clonidine (Catapres) 0.1 mg Q6H PRN PO ELEVATED SYSTOLIC BP Last administered on 02/08/17 06:23; Admin Dose 0.1 MG; Start 02/04/17 at 21:00 Docusate Sodium (Colace) 100 mg QHS PRN PO CONSTIPATION Last administered on 08:46; Admin Dose 100 MG; Start 02/04/17 at 21:00 Heparin Sodium (Porcine) (Heparin (5000 Units/0.5 ml)) 5,000 unit BID SC Last administered on 02/11/17 09:54; Admin Dose 5,000 UNIT; Start 02/04/17 at 21:00 Hydralazine HCl (Apresoline) 75 mg TID PO Last administered on 02/11/17 09:37 ; Admin Dose 75 MG; Start 02/04/17 at 21:00 Lactulose (Enulose) 20 gm DAILY PRN PO CONSTIPATION; Start 02/04/17 at 21:00 Lidocaine (Lidoderm) 1 patch QPM TD Last administered on 02/10/17 20:33; Admin Dose 1 PATCH; Start 02/04/17 at 21:00 Lubiprostone (Amitiza) 24 mcg BID PO Last administered on 02/11/17 09:39; Admin Dose 24 MCG; Start 02/04/17 at 21:30 Metoclopramide HCl (Reglan) 5 mg BID PO Last administered on 02/11/17 09:39; Admin Dose 5 MG; Start 02/04/17 at 21:00 Metoprolol Tartrate (Lopressor) 100 mg BID PO Last administered on 02/11/17 09 :39; Admin Dose 100 MG; Start 02/04/17 at 21:00 Morphine Sulfate (morphine) 2 mg Q3H PRN IV PAIN LEVEL 6-10 Last administered on 02/11/17 02:19; Admin Dose 2 MG; Start 02/04/17 at 21:00 Naloxone HCl (Narcan) 0.2 mg Q2M PRN IV RR 8 BREATHS/MIN OR LESS; Start at 21:00 Nitroglycerin (Nitroglycerin 2% Oint) 1 inch Q6 TD Last administered on 12:17; Admin Dose 1 INCH; Start 02/05/17 at 00:00 Ondansetron HCl (Zofran Inj) 4 mg Q6H PRN IV NAUSEA AND/OR VOMITING; Start at 21:00 Oxycodone HCl (Oxycontin) 10 mg Q8 PO Last administered on 02/11/17 06:22; Admin Dose 10 MG; Start 02/04/17 at 22:00 Pantoprazole (Protonix Tab) 40 mg DAILY@06 PO Last administered on 02/11/17 06 :21; Admin Dose 40 MG; Start 02/05/17 at 06:00 Polyethylene Glycol (Miralax) 17 gm BID PO Last administered on 02/11/17 09:39 ; Admin Dose 17 GM; Start 02/04/17 at 21:00 IV Flush (NS 10 ml) 10 ml PRN PRN IV IV PROTOCOL Last administered on 00:41; Admin Dose 10 ML; Start 02/04/17 at 21:30 Senna (Senokot) 1 tab DAILY PO Last administered on 02/11/17 09:37; Admin Dose 1 TAB; Start 02/05/17 at 09:00 Sertraline HCl (Zoloft) 50 mg DAILY PO Last administered on 02/11/17 09:38; Admin Dose 50 MG; Start 02/05/17 at 09:00 Sodium Biphosphate/ Sodium Phosphate (Fleet Enema) 133 ml DAILY PRN [place] CONSTIPATION; Start 02/04/17 at 21:30 Tolterodine Tartrate (Detrol) 2 mg BID PO Last administered on 02/11/17 09:37 ; Admin Dose 2 MG; Start 02/04/17 at 21:15 Zolpidem Tartrate (Ambien) 5 mg HS PRN PO INSOMNIA Last administered on 21:32; Admin Dose 5 MG; Start 02/04/17 at 21:30 Miscellaneous Information 1 ea NOTE XX ; Start 02/04/17 at 21:30 Glucose (Glutose) 15 gm Q15M PRN PO DECREASED GLUCOSE; Start 02/04/17 at 21:30 Glucose (Glutose) 22.5 gm Q15M PRN PO DECREASED GLUCOSE; Start 02/04/17 at 21: 30 Dextrose (D50w Syringe) 25 ml Q15M PRN IV DECREASED GLUCOSE; Start 02/04/17 at 21:30 Dextrose (D50w Syringe) 50 ml Q15M PRN IV DECREASED GLUCOSE; Start 02/04/17 at 21:30 Glucagon (Glucagen) 1 mg Q15M PRN IM DECREASED GLUCOSE; Start 02/04/17 at 21:30 Glucose (Glutose) 15 gm Q15M PRN BUCCAL DECREASED GLUCOSE; Start 02/04/17 at 21 :30 Levofloxacin 250 mg 250 mg Q48H PO Last administered on 02/10/17 08:42; Admin Dose 250 MG; Start 02/08/17 at 09:00 Ceftriaxone Sodium (Rocephin) 50 ml @ 100 mls/hr Q24H IVPB Last administered on 02/10/17 17:27; Admin Dose 100 MLS/HR; Start 02/09/17 at 17:00 Warfarin Sodium (Coumadin) 2 mg DAILY@17 PO Last administered on 02/10/17 17: 27; Admin Dose 2 MG; Start 02/10/17 at 17:00 Warfarin Sodium (Coumadin) 5 mg DAILY@17 PO Last administered on 02/10/17 17: 27; Admin Dose 5 MG; Start 02/10/17 at 17:00 ADALID LEO NP Feb 11, 2017 13:53
--- NOTE | 2017-02-11 13:56 | PN ---
DATE: 02/11/2017 SUBJECTIVE: The patient is scheduled for hemodialysis today. No other events noted. OBJECTIVE: VITAL SIGNS: Blood pressure 124/70, respirations 18, pulse 69, temperature 97.6. HEENT: Head is normocephalic. NECK: Supple. HEART: Regular rate. LUNGS: Show diminished breath sounds at base. ABDOMEN: Soft, nontender to palpation. No rebound or guarding. EXTREMITIES: Negative for clubbing, cyanosis, no edema. DERMATOLOGIC: No rashes. MUSCULOSKELETAL: No joint effusions. NEUROLOGIC: No change in exam. MEDICATIONS: The patient's medications have been reviewed. LABORATORY DATA: Showed INR 1.41. ASSESSMENT AND PLAN: 1. Diskitis L5-S1 with radiculopathy. The patient is status post transforaminal lumbar interbody f usion. The patient is currently stable. Continue current antibiotic regimen. 2. Chronic back pain, improving. Continue current pain regimen. 3. End-stage renal disease. Plan for dialysis today. 4. Hypertension. Continue current blood pressure regimen. 5. Atrial fibrillation. Continue medical management and continue Coumadin. INR is near goal. 6. Status post TIA. 7. Anemia. Monitor hemoglobin and hematocrit levels. 8. Mineral bone disorder. Monitor calcium and phosphorus levels. 6. Diabetes, continue Accu-Cheks and insulin sliding scale. Dictated By: SAM THOMPSON/MERI Conf#: [id number] DID#: [id number]
[2017-02-11] MEDS: CEFTRIAXONE 1 GM/50 ML (PMX) 50 ML IVPB SCH (17:55)
[2017-02-11] MEDS: WARFARIN 2 MG TAB PO SCH (17:56)
[2017-02-11] MEDS: WARFARIN 5 MG TAB PO SCH (17:56)
[2017-02-11] MEDS ORDERED: HEPARIN 1000 UNITS/ML 10 ML INJ CATHETER ONE (19:00)
[2017-02-11] MEDS: ATORVASTATIN 80 MG TAB PO SCH (20:59)
[2017-02-11] MEDS: LIDOCAINE 5% PATCH TD SCH (21:02)
[2017-02-11] MEDS: ZOLPIDEM 5 MG TAB PO PRN (21:05)
[2017-02-12] MEDS: NITROGLYCERIN 2% 1 GM OINT PKT TD SCH ×4 (00:55→17:54)
[2017-02-12 02:00] VITALS: BP 127/72; RESP 18
[2017-02-12] MEDS: ACCU-CHEK XX SCH (02:00)
[2017-02-12] MEDS: PANTOPRAZOLE (EC) 40 MG TAB PO SCH (06:29)
[2017-02-12] MEDS: oxyCODONE (CR) 10 MG TAB [oxyCONTIN] PO SCH (06:29)
[2017-02-12 07:30] VITALS: BP 155/81; RESP 20
[2017-02-12 07:35] LABS: INR 1.53; PROTIME 18.5 Sec (12.2-14.2); PT RATIO 1.4
[2017-02-12] MEDS: INSULIN ASPART [NOVOLOG] 3 ML PEN SC SCH ×4 (07:35→21:00)
[2017-02-12] MEDS: METOCLOPRAMIDE 10 MG TAB PO SCH ×2 (08:52→21:03)
[2017-02-12] MEDS: SENNA TAB PO SCH (08:52)
[2017-02-12] MEDS: SERTRALINE 50 MG TAB PO SCH (08:52)
[2017-02-12] MEDS: LUBIPROSTONE 24 MCG CAP PO SCH ×2 (08:53→21:00)
[2017-02-12] MEDS: HYDROCODONE/APAP (10/325) TAB PO PRN (08:53)
[2017-02-12] MEDS: METOPROLOL 100 MG TAB PO SCH ×2 (08:54→21:04)
[2017-02-12] MEDS: ASPIRIN 81 MG TAB PO SCH (08:54)
[2017-02-12] MEDS: SEVELAMER 800 MG TAB PO SCH ×3 (08:54→17:53)
[2017-02-12] MEDS: TOLTERODINE 2 MG TAB PO SCH ×2 (08:54→21:03)
[2017-02-12] MEDS: POLYETHYLENE GLYCOL 17 GM PACKET PO SCH ×2 (08:54→21:00)
[2017-02-12] MEDS: AMLODIPINE 10 MG TAB PO SCH (08:56)
[2017-02-12] MEDS: HEPARIN 5,000 UNIT/0.5 ML VIAL SC SCH ×2 (08:56→21:12)
--- NOTE | 2017-02-12 10:33 | CONS ---
Date/Time of Note Date/Time of Note DATE: 02/12/17 TIME: 10:32 Consult Date/Type/Reason Admit Date/Time Feb 04, 2017 at 20:01 Type of Consultation: ID Subjective no new complaints Objective pulm-cta cga 100 feet Vital Signs Date Time Temp Pulse Resp B/P Pulse Ox O2 Delivery O2 Flow Rate FiO2 02/12/17 07:30 98.5 71 20 155/81 94 02/10/17 08:00 Room Air Intake and Output 02/11/17 02/11/17 02/12/17 15:00 23:00 07:00 Intake Total 800 ml 1550 ml 750 ml Output Total 2900 ml Balance 800 ml -1350 ml 750 ml Results/Medications Result Diagram: 02/09/1760002/09/17 06 Results 24 hrs Laboratory Tests Test 02/11/17 12:32 02/11/17 17:25 02/11/17 20:57 02/12/17 06:45 Bedside Glucose 114 88 123 Prothrombin Time 18.5 H Prothrombin Time Ratio 1.4 INR International Normalized Ratio 1.53 Test 02/12/17 07:52 Bedside Glucose 98 Medications Current Medications Diagnostic Test (Pha) (Accu-Chek) 1 ea 02 XX ; Start 02/05/17 at 02:00 Amlodipine Besylate (Norvasc) 10 mg DAILY PO Last administered on 02/12/17 08: 56; Admin Dose 10 MG; Start 02/05/17 at 09:00 Acetaminophen/ Hydrocodone Bitart ([place] (10/325)) 1 tab Q4H PRN PO 4-6 PAIN Last administered on 02/12/17 08:53; Admin Dose 1 TAB; Start 02/04/17 at 21:00 Aspirin (Aspirin) 162 mg DAILY PO Last administered on 02/12/17 08:54; Admin Dose 162 MG; Start 02/05/17 at 09:00 Atorvastatin Calcium (Lipitor) 80 mg QHS PO Last administered on 02/11/17 20: 59; Admin Dose 80 MG; Start 02/04/17 at 21:00 Bisacodyl (Dulcolax Supp) 10 mg Q24H PRN [place] CONSTIPATION; Start 02/04/17 at 21: 00 Clonidine (Catapres) 0.1 mg Q6H PRN PO ELEVATED SYSTOLIC BP Last administered on 02/08/17 06:23; Admin Dose 0.1 MG; Start 02/04/17 at 21:00 Docusate Sodium (Colace) 100 mg QHS PRN PO CONSTIPATION Last administered on 08:46; Admin Dose 100 MG; Start 02/04/17 at 21:00 Heparin Sodium (Porcine) (Heparin (5000 Units/0.5 ml)) 5,000 unit BID SC Last administered on 02/12/17 08:56; Admin Dose 5,000 UNIT; Start 02/04/17 at 21:00 Hydralazine HCl (Apresoline) 75 mg TID PO Last administered on 02/12/17 08:53 ; Admin Dose 75 MG; Start 02/04/17 at 21:00 Lactulose (Enulose) 20 gm DAILY PRN PO CONSTIPATION; Start 02/04/17 at 21:00 Lidocaine (Lidoderm) 1 patch QPM TD Last administered on 02/11/17 21:02; Admin Dose 1 PATCH; Start 02/04/17 at 21:00 Lubiprostone (Amitiza) 24 mcg BID PO Last administered on 02/12/17 08:53; Admin Dose 24 MCG; Start 02/04/17 at 21:30 Metoclopramide HCl (Reglan) 5 mg BID PO Last administered on 02/12/17 08:52; Admin Dose 5 MG; Start 02/04/17 at 21:00 Metoprolol Tartrate (Lopressor) 100 mg BID PO Last administered on 02/12/17 08 :54; Admin Dose 100 MG; Start 02/04/17 at 21:00 Morphine Sulfate (morphine) 2 mg Q3H PRN IV PAIN LEVEL 6-10 Last administered on 02/11/17 18:18; Admin Dose 2 MG; Start 02/04/17 at 21:00 Naloxone HCl (Narcan) 0.2 mg Q2M PRN IV RR 8 BREATHS/MIN OR LESS; Start at 21:00 Nitroglycerin (Nitroglycerin 2% Oint) 1 inch Q6 TD Last administered on 06:29; Admin Dose 1 INCH; Start 02/05/17 at 00:00 Ondansetron HCl (Zofran Inj) 4 mg Q6H PRN IV NAUSEA AND/OR VOMITING; Start at 21:00 Pantoprazole (Protonix Tab) 40 mg DAILY@06 PO Last administered on 02/12/17 06 :29; Admin Dose 40 MG; Start 02/05/17 at 06:00 Polyethylene Glycol (Miralax) 17 gm BID PO Last administered on 02/12/17 08:54 ; Admin Dose 17 GM; Start 02/04/17 at 21:00 IV Flush (NS 10 ml) 10 ml PRN PRN IV IV PROTOCOL Last administered on 00:41; Admin Dose 10 ML; Start 02/04/17 at 21:30 Senna (Senokot) 1 tab DAILY PO Last administered on 02/12/17 08:52; Admin Dose 1 TAB; Start 02/05/17 at 09:00 Sertraline HCl (Zoloft) 50 mg DAILY PO Last administered on 02/12/17 08:52; Admin Dose 50 MG; Start 02/05/17 at 09:00 Sodium Biphosphate/ Sodium Phosphate (Fleet Enema) 133 ml DAILY PRN [place] CONSTIPATION; Start 02/04/17 at 21:30 Tolterodine Tartrate (Detrol) 2 mg BID PO Last administered on 02/12/17 08:54 ; Admin Dose 2 MG; Start 02/04/17 at 21:15 Zolpidem Tartrate (Ambien) 5 mg HS PRN PO INSOMNIA Last administered on 21:05; Admin Dose 5 MG; Start 02/04/17 at 21:30 Miscellaneous Information 1 ea NOTE XX ; Start 02/04/17 at 21:30 Glucose (Glutose) 15 gm Q15M PRN PO DECREASED GLUCOSE; Start 02/04/17 at 21:30 Glucose (Glutose) 22.5 gm Q15M PRN PO DECREASED GLUCOSE Last administered on 15:41; Admin Dose 22.5 GM; Start 02/04/17 at 21:30 Dextrose (D50w Syringe) 25 ml Q15M PRN IV DECREASED GLUCOSE; Start 02/04/17 at 21:30 Dextrose (D50w Syringe) 50 ml Q15M PRN IV DECREASED GLUCOSE; Start 02/04/17 at 21:30 Glucagon (Glucagen) 1 mg Q15M PRN IM DECREASED GLUCOSE; Start 02/04/17 at 21:30 Glucose 15 gm 15 gm Q15M PRN BUCCAL DECREASED GLUCOSE; Start 02/04/17 at 21:30 Ceftriaxone Sodium (Rocephin) 50 ml @ 100 mls/hr Q24H IVPB Last administered on 02/11/17 17:55; Admin Dose 100 MLS/HR; Start 02/09/17 at 17:00 Warfarin Sodium (Coumadin) 2 mg DAILY@17 PO Last administered on 02/11/17 17: 56; Admin Dose 2 MG; Start 02/10/17 at 17:00 Warfarin Sodium (Coumadin) 5 mg DAILY@17 PO Last administered on 02/11/17 17: 56; Admin Dose 5 MG; Start 02/10/17 at 17:00 Oxycodone HCl (Roxicodone) 5 mg TID PO ; Start 02/12/17 at 13:00 Assessment/Plan Additional Assessment/Plan Rehab- lumbar radiculopathy and diskitis, status post transforaminal interbody fusion. Continue rehab therapies TIA. End-stage renal disease, on hemodialysis. Diabetes mellitus. Diabetic nephropathy. Coronary artery disease. Hyperlipidemia. Anemia. Paroxysmal atrial fibrillation. Mineral bone disease. ALINE CORREIA MD Feb 12, 2017 10:33
[2017-02-12] MEDS: oxyCODONE 5 MG TAB PO SCH ×2 (12:15→21:03)
[2017-02-12] MEDS ORDERED: oxyCODONE 5 MG TAB PO ONE (13:00)
[2017-02-12 14:00] VITALS: BP 144/68; RESP 20
[2017-02-12] MEDS: morphine 2 MG INJ IV PRN (14:57)
[2017-02-12] MEDS: CEFTRIAXONE 1 GM/50 ML (PMX) 50 ML IVPB SCH (17:53)
[2017-02-12] MEDS: WARFARIN 2 MG TAB PO SCH (17:53)
[2017-02-12] MEDS: WARFARIN 5 MG TAB PO SCH (17:54)
--- NOTE | 2017-02-12 18:40 | CONS ---
Date/Time of Note Date/Time of Note DATE: 02/12/17 TIME: 18:39 Consult Date/Type/Reason Admit Date/Time Feb 04, 2017 at 20:01 Type of Consultation: CARDIOLOGY Subjective CARDIOLOGY FOLLOW UP NOTE Discussed with staff she denies any chest pain or pressure or palpitation to me. she denies back pain and states she is able to walk better now. She is still doing well with PT no bleeding there has been issues with her IV line access. objective: General: no acute distress HEENT: NC/AT. pupils are equal. round. NECK: NO JVD. no stridor. CV: RRR. systolic murmur; no gallop or rubs. PULM: no wheezing or rhonchi. GI: SOFT, NT, ND, no rebound or guarding Extremity: trace B/L LE edema. no clubbing. neuro: awake and alert, Psych: calm and pleasant rectal: deferred Derm: multiple tattoos. Objective Vital Signs Date Time Temp Pulse Resp B/P Pulse Ox O2 Delivery O2 Flow Rate FiO2 02/12/17 14:00 99.6 73 20 144/68 97 02/10/17 08:00 Room Air Intake and Output 02/11/17 02/11/17 02/12/17 15:00 23:00 07:00 Intake Total 800 ml 1550 ml 750 ml Output Total 2900 ml Balance 800 ml -1350 ml 750 ml Results/Medications Result Diagram: 02/09/17 0601 02/09/17 0601 Results 24 hrs Laboratory Tests Test 02/11/17 20:57 02/12/17 06:45 02/12/17 07:52 02/12/17 12:04 Bedside Glucose 123 98 110 Prothrombin Time 18.5 H Prothrombin Time Ratio 1.4 INR International Normalized Ratio 1.53 Test 02/12/17 17:03 Bedside Glucose 100 Medications Current Medications Diagnostic Test (Pha) (Accu-Chek) 1 ea 02 XX ; Start 02/05/17 at 02:00 Amlodipine Besylate (Norvasc) 10 mg DAILY PO Last administered on 02/12/17 08: 56; Admin Dose 10 MG; Start 02/05/17 at 09:00 Acetaminophen/ Hydrocodone Bitart ([place] (10/325)) 1 tab Q4H PRN PO 4-6 PAIN Last administered on 02/12/17 08:53; Admin Dose 1 TAB; Start 02/04/17 at 21:00 Aspirin (Aspirin) 162 mg DAILY PO Last administered on 02/12/17 08:54; Admin Dose 162 MG; Start 02/05/17 at 09:00 Atorvastatin Calcium (Lipitor) 80 mg QHS PO Last administered on 02/11/17 20: 59; Admin Dose 80 MG; Start 02/04/17 at 21:00 Bisacodyl (Dulcolax Supp) 10 mg Q24H PRN [place] CONSTIPATION; Start 02/04/17 at 21: 00 Clonidine (Catapres) 0.1 mg Q6H PRN PO ELEVATED SYSTOLIC BP Last administered on 02/08/17 06:23; Admin Dose 0.1 MG; Start 02/04/17 at 21:00 Docusate Sodium (Colace) 100 mg QHS PRN PO CONSTIPATION Last administered on 08:46; Admin Dose 100 MG; Start 02/04/17 at 21:00 Heparin Sodium (Porcine) (Heparin (5000 Units/0.5 ml)) 5,000 unit BID SC Last administered on 02/12/17 08:56; Admin Dose 5,000 UNIT; Start 02/04/17 at 21:00 Hydralazine HCl (Apresoline) 75 mg TID PO Last administered on 02/12/17 12:16 ; Admin Dose 75 MG; Start 02/04/17 at 21:00 Lactulose (Enulose) 20 gm DAILY PRN PO CONSTIPATION; Start 02/04/17 at 21:00 Lidocaine (Lidoderm) 1 patch QPM TD Last administered on 02/11/17 21:02; Admin Dose 1 PATCH; Start 02/04/17 at 21:00 Lubiprostone (Amitiza) 24 mcg BID PO Last administered on 02/12/17 08:53; Admin Dose 24 MCG; Start 02/04/17 at 21:30 Metoclopramide HCl (Reglan) 5 mg BID PO Last administered on 02/12/17 08:52; Admin Dose 5 MG; Start 02/04/17 at 21:00 Metoprolol Tartrate (Lopressor) 100 mg BID PO Last administered on 02/12/17 08 :54; Admin Dose 100 MG; Start 02/04/17 at 21:00 Morphine Sulfate (morphine) 2 mg Q3H PRN IV PAIN LEVEL 6-10 Last administered on 02/12/17 14:57; Admin Dose 2 MG; Start 02/04/17 at 21:00 Naloxone HCl (Narcan) 0.2 mg Q2M PRN IV RR 8 BREATHS/MIN OR LESS; Start at 21:00 Nitroglycerin (Nitroglycerin 2% Oint) 1 inch Q6 TD Last administered on 17:54; Admin Dose 1 INCH; Start 02/05/17 at 00:00 Ondansetron HCl (Zofran Inj) 4 mg Q6H PRN IV NAUSEA AND/OR VOMITING; Start at 21:00 Pantoprazole (Protonix Tab) 40 mg DAILY@06 PO Last administered on 02/12/17 06 :29; Admin Dose 40 MG; Start 02/05/17 at 06:00 Polyethylene Glycol (Miralax) 17 gm BID PO Last administered on 02/12/17 08:54 ; Admin Dose 17 GM; Start 02/04/17 at 21:00 IV Flush (NS 10 ml) 10 ml PRN PRN IV IV PROTOCOL Last administered on 00:41; Admin Dose 10 ML; Start 02/04/17 at 21:30 Senna (Senokot) 1 tab DAILY PO Last administered on 02/12/17 08:52; Admin Dose 1 TAB; Start 02/05/17 at 09:00 Sertraline HCl (Zoloft) 50 mg DAILY PO Last administered on 02/12/17 08:52; Admin Dose 50 MG; Start 02/05/17 at 09:00 Sodium Biphosphate/ Sodium Phosphate (Fleet Enema) 133 ml DAILY PRN [place] CONSTIPATION; Start 02/04/17 at 21:30 Tolterodine Tartrate (Detrol) 2 mg BID PO Last administered on 02/12/17 08:54 ; Admin Dose 2 MG; Start 02/04/17 at 21:15 Zolpidem Tartrate (Ambien) 5 mg HS PRN PO INSOMNIA Last administered on 21:05; Admin Dose 5 MG; Start 02/04/17 at 21:30 Miscellaneous Information 1 ea NOTE XX ; Start 02/04/17 at 21:30 Glucose (Glutose) 15 gm Q15M PRN PO DECREASED GLUCOSE; Start 02/04/17 at 21:30 Glucose (Glutose) 22.5 gm Q15M PRN PO DECREASED GLUCOSE Last administered on 15:41; Admin Dose 22.5 GM; Start 02/04/17 at 21:30 Dextrose (D50w Syringe) 25 ml Q15M PRN IV DECREASED GLUCOSE; Start 02/04/17 at 21:30 Dextrose (D50w Syringe) 50 ml Q15M PRN IV DECREASED GLUCOSE; Start 02/04/17 at 21:30 Glucagon (Glucagen) 1 mg Q15M PRN IM DECREASED GLUCOSE; Start 02/04/17 at 21:30 Glucose 15 gm 15 gm Q15M PRN BUCCAL DECREASED GLUCOSE; Start 02/04/17 at 21:30 Ceftriaxone Sodium (Rocephin) 50 ml @ 100 mls/hr Q24H IVPB Last administered on 02/12/17 17:53; Admin Dose 100 MLS/HR; Start 02/09/17 at 17:00 Warfarin Sodium (Coumadin) 2 mg DAILY@17 PO Last administered on 02/12/17 17: 53; Admin Dose 2 MG; Start 02/10/17 at 17:00 Warfarin Sodium (Coumadin) 5 mg DAILY@17 PO Last administered on 02/12/17 17: 54; Admin Dose 5 MG; Start 02/10/17 at 17:00 Oxycodone HCl (Roxicodone) 5 mg TID PO Last administered on 02/12/17 12:15; Admin Dose 5 MG; Start 02/12/17 at 13:00 Assessment/Plan Chief Complaint/Hosp Course 1. Paroxysmal atrial fibrillation. Currently appears to be remaining in sinus rhythm. 2. History of multiple cerebrovascular accidents (CVA). 3. Renal failure on dialysis. 4. Hypertension. 5. Chronic obstructive pulmonary disease (COPD). 6. History of spinal infection and s/p spinal surgery. 7. Anemia. 8. Dyslipidemia. 9. Diabetes. PLAN: cont coumadin and adjust based on daily INR. We will continue with the current blood pressure medications. Dialysis will be continued as per renal. Physical therapy and rehabilitation. Antibiotic as per Internal Medicine and ID recommendations. Once the INR is therapeutic, aspirin will be discontinued as well. Thank you for this referral. I will Continue to follow along with you. TAMERA BAILEY MD [facility] Problems: TAMERA BAILEY MD Feb 12, 2017 18:40
[2017-02-12 20:06] VITALS: BP 150/77; RESP 18
[2017-02-12] MEDS: ATORVASTATIN 80 MG TAB PO SCH (21:03)
[2017-02-12] MEDS: ZOLPIDEM 5 MG TAB PO PRN (21:03)
[2017-02-12] MEDS: LIDOCAINE 5% PATCH TD SCH (21:05)
[2017-02-13] VITALS (12 sets, daily range): BP systolic 130–154; BP diastolic 59–82; PULSE 66–79; RESP 18
[2017-02-13] MEDS: ACCU-CHEK XX SCH (02:00)
[2017-02-13 06:32] LABS: BASOPHIL # 0.1 10^3/ul (0.0-0.1); BASOPHILS % 0.9 % (0.0-2.0); EOSINOPHILS # 0.5 10^3/ul (0.0-0.5); EOSINOPHILS % 6.7 % (0.0-7.0); HEMATOCRIT 27.7 % (37.0-47.0); HEMOGLOBIN 8.5 g/dl (12.0-16.0); LYMPHOCYTES % 26.9 % (15.0-51.0); MEAN CORPUSCULAR HEMOGLOBIN 29.8 pg (29.0-33.0); MEAN CORPUSCULAR HGB CONC 30.7 g/dl (32.0-37.0); MEAN CORPUSCULAR VOLUME 97.2 fl (82.0-101.0); MEAN PLATELET VOLUME 8.4 fl (7.4-10.4); MONOCYTE # 0.6 10^3/ul (0.3-0.9); MONOCYTES % 8.1 % (0.0-11.0); NEUTROPHIL # 4.2 10^3/ul (1.6-7.5); NEUTROPHILS % 57.1 % (39.0-77.0); PLATELET COUNT 295 10^3/UL (140-415); RED BLOOD COUNT 2.85 10^6/ul (4.20-5.40); RED CELL DISTRIBUTION WIDTH 15.5 % (11.5-14.5); WHITE BLOOD COUNT 7.4 10^3/ul (4.8-10.8)
[2017-02-13] MEDS: PANTOPRAZOLE (EC) 40 MG TAB PO SCH (06:45)
[2017-02-13] MEDS: NITROGLYCERIN 2% 1 GM OINT PKT TD SCH ×4 (06:46→18:38)
[2017-02-13 06:54] LABS: CALCIUM 8.7 mg/dl (8.4-10.2); CREATININE 3.5 mg/dl (0.44-1.00); PHOSPHORUS 4.8 mg/dl (2.5-4.9); POTASSIUM 4.8 mmol/L (3.5-5.1)
[2017-02-13 07:18] LABS: INR 1.46; PROTIME 17.8 Sec (12.2-14.2); PT RATIO 1.4
[2017-02-13] MEDS: INSULIN ASPART [NOVOLOG] 3 ML PEN SC SCH ×4 (07:35→20:36)
--- NOTE | 2017-02-13 07:59 | PN ---
DATE: 02/12/2017 SUBJECTIVE: The patient is stable. No events overnight. No fevers, chills, nausea, vomiting. OBJECTIVE: VITAL SIGNS: Blood pressure is 155/81, temperature 98.5, pulse 71, respiratory rate 20, saturating 94%. HEENT: Head is normocephalic. NECK: Supple. HEART: Regular rate. LUNGS: Show diminished sounds at base. ABDOMEN: Soft, nontender to palpation without rebound or guarding. EXTREMITIES: Negative for clubbing, cyanosis, edema. DERMATOLOGIC: No rashes. MUSCULOSKELETAL: No joint effusions. NEUROLOGIC: No change in exam. MEDICATIONS: The patient's medications have been reviewed. LABORATORY DATA: INR 1.43. ASSESSMENT AND PLAN: 1. Diskitis L5-S1 radiculopathy. The patient is status post transforaminal lumbar interbody fusion . Patient is currently stable. Continue antibiotic therapy. 2. Chronic back pain, improving. Continue current pain regimen. 3. End-stage renal disease. Plan for dialysis tomorrow. 4. Hypertension. Continue current blood pressure regimen. 5. Atrial fibrillation. The patient is on Coumadin. INR is near goal. 6. Status post transient ischemic attack. 7. Anemia. Monitor hemoglobin and hematocrit levels. 8. Mineral bone disorder, monitor calcium and phosphorus levels. 9. Diabetes. Continue Accu-Cheks, insulin sliding scale. Dictated By: SAM THOMPSON/MERI Conf#: [id number] DID#: [id number]
--- NOTE | 2017-02-13 08:05 | CONS ---
Date/Time of Note Date/Time of Note DATE: 02/13/17 TIME: 08:05 Consult Date/Type/Reason Admit Date/Time Feb 04, 2017 at 20:01 Type of Consultation: CARDIOLOGY Subjective No complaints Objective pulm-cta sba ambulation Vital Signs Date Time Temp Pulse Resp B/P Pulse Ox O2 Delivery O2 Flow Rate FiO2 02/13/17 06:44 73 144/61 02/13/17 02:00 98.3 18 95 02/10/17 08:00 Room Air Intake and Output 02/12/17 02/12/17 02/13/17 15:00 23:00 07:00 Intake Total 910 ml 200 ml Balance 910 ml 200 ml Results/Medications Result Diagram: 02/13/17 0603 02/13/17 0603 Results 24 hrs Laboratory Tests Test 02/12/17 12:04 02/12/17 17:03 02/12/17 21:01 02/13/17 06:03 Bedside Glucose 110 100 163 White Blood Count 7.4 Red Blood Count 2.85 L Hemoglobin 8.5 L Hematocrit 27.7 L Mean Corpuscular Volume 97.2 Mean Corpuscular Hemoglobin 29.8 Mean Corpuscular Hemoglobin Concent 30.7 L Red Cell Distribution Width 15.5 H Platelet Count 295 Mean Platelet Volume 8.4 Neutrophils % 57.1 Lymphocytes % 26.9 Monocytes % 8.1 Eosinophils % 6.7 Basophils % 0.9 Nucleated Red Blood Cells % 0.0 Neutrophils # 4.2 Lymphocytes # 2.0 Monocytes # 0.6 Eosinophils # 0.5 Basophils # 0.1 Nucleated Red Blood Cells # 0.0 Prothrombin Time 17.8 H Prothrombin Time Ratio 1.4 INR International Normalized Ratio 1.46 Sodium Level 138 Potassium Level 4.8 Chloride Level 108 Carbon Dioxide Level 24 Anion Gap 11 Blood Urea Nitrogen 30 H Creatinine 3.50 H Glucose Level 88 Calcium Level 8.7 Phosphorus Level 4.8 Magnesium Level 2.0 Test 02/13/17 07:51 Bedside Glucose 83 Medications Current Medications Diagnostic Test (Pha) (Accu-Chek) 1 ea 02 XX ; Start 02/05/17 at 02:00 Amlodipine Besylate (Norvasc) 10 mg DAILY PO Last administered on 02/12/17t 08: 56; Admin Dose 10 MG; Start 02/05/17 at 09:00 Acetaminophen/ Hydrocodone Bitart ([place] (10/325)) 1 tab Q4H PRN PO 4-6 PAIN Last administered on 02/12/17 08:53; Admin Dose 1 TAB; Start 02/04/17 at 21:00 Aspirin (Aspirin) 162 mg DAILY PO Last administered on 02/12/17 08:54; Admin Dose 162 MG; Start 02/05/17 at 09:00 Atorvastatin Calcium (Lipitor) 80 mg QHS PO Last administered on 02/12/17 21: 03; Admin Dose 80 MG; Start 02/04/17 at 21:00 Bisacodyl (Dulcolax Supp) 10 mg Q24H PRN [place] CONSTIPATION; Start 02/04/17 at 21: 00 Clonidine (Catapres) 0.1 mg Q6H PRN PO ELEVATED SYSTOLIC BP Last administered on 02/08/17 06:23; Admin Dose 0.1 MG; Start 02/04/17 at 21:00 Docusate Sodium (Colace) 100 mg QHS PRN PO CONSTIPATION Last administered on 08:46; Admin Dose 100 MG; Start 02/04/17 at 21:00 Heparin Sodium (Porcine) (Heparin (5000 Units/0.5 ml)) 5,000 unit BID SC Last administered on 02/12/17 21:12; Admin Dose 5,000 UNIT; Start 02/04/17 at 21:00 Hydralazine HCl (Apresoline) 75 mg TID PO Last administered on 02/12/17 21:04 ; Admin Dose 75 MG; Start 02/04/17 at 21:00 Lactulose (Enulose) 20 gm DAILY PRN PO CONSTIPATION; Start 02/04/17 at 21:00 Lidocaine (Lidoderm) 1 patch QPM TD Last administered on 02/12/17 21:05; Admin Dose 1 PATCH; Start 02/04/17 at 21:00 Lubiprostone (Amitiza) 24 mcg BID PO Last administered on 02/12/17 08:53; Admin Dose 24 MCG; Start 02/04/17 at 21:30 Metoclopramide HCl (Reglan) 5 mg BID PO Last administered on 02/12/17 21:03; Admin Dose 5 MG; Start 02/04/17 at 21:00 Metoprolol Tartrate (Lopressor) 100 mg BID PO Last administered on 02/12/17 21 :04; Admin Dose 100 MG; Start 02/04/17 at 21:00 Morphine Sulfate (morphine) 2 mg Q3H PRN IV PAIN LEVEL 6-10 Last administered on 02/12/17 14:57; Admin Dose 2 MG; Start 02/04/17 at 21:00 Naloxone HCl (Narcan) 0.2 mg Q2M PRN IV RR 8 BREATHS/MIN OR LESS; Start at 21:00 Nitroglycerin (Nitroglycerin 2% Oint) 1 inch Q6 TD Last administered on 06:46; Admin Dose 1 INCH; Start 02/05/17 at 00:00 Ondansetron HCl (Zofran Inj) 4 mg Q6H PRN IV NAUSEA AND/OR VOMITING; Start at 21:00 Pantoprazole (Protonix Tab) 40 mg DAILY@06 PO Last administered on 02/13/17 06 :45; Admin Dose 40 MG; Start 02/05/17 at 06:00 Polyethylene Glycol (Miralax) 17 gm BID PO Last administered on 02/12/17 08:54 ; Admin Dose 17 GM; Start 02/04/17 at 21:00 IV Flush (NS 10 ml) 10 ml PRN PRN IV IV PROTOCOL Last administered on 00:41; Admin Dose 10 ML; Start 02/04/17 at 21:30 Senna (Senokot) 1 tab DAILY PO Last administered on 02/12/17 08:52; Admin Dose 1 TAB; Start 02/05/17 at 09:00 Sertraline HCl (Zoloft) 50 mg DAILY PO Last administered on 02/12/17 08:52; Admin Dose 50 MG; Start 02/05/17 at 09:00 Sodium Biphosphate/ Sodium Phosphate (Fleet Enema) 133 ml DAILY PRN [place] CONSTIPATION; Start 02/04/17 at 21:30 Tolterodine Tartrate (Detrol) 2 mg BID PO Last administered on 02/12/17 21:03 ; Admin Dose 2 MG; Start 02/04/17 at 21:15 Zolpidem Tartrate (Ambien) 5 mg HS PRN PO INSOMNIA Last administered on 21:03; Admin Dose 5 MG; Start 02/04/17 at 21:30 Miscellaneous Information 1 ea NOTE XX ; Start 02/04/17 at 21:30 Glucose (Glutose) 15 gm Q15M PRN PO DECREASED GLUCOSE; Start 02/04/17 at 21:30 Glucose (Glutose) 22.5 gm Q15M PRN PO DECREASED GLUCOSE Last administered on 15:41; Admin Dose 22.5 GM; Start 02/04/17 at 21:30 Dextrose (D50w Syringe) 25 ml Q15M PRN IV DECREASED GLUCOSE; Start 02/04/17 at 21:30 Dextrose (D50w Syringe) 50 ml Q15M PRN IV DECREASED GLUCOSE; Start 02/04/17 at 21:30 Glucagon (Glucagen) 1 mg Q15M PRN IM DECREASED GLUCOSE; Start 02/04/17 at 21:30 Glucose 15 gm 15 gm Q15M PRN BUCCAL DECREASED GLUCOSE; Start 02/04/17 at 21:30 Ceftriaxone Sodium (Rocephin) 50 ml @ 100 mls/hr Q24H IVPB Last administered on 02/12/17 17:53; Admin Dose 100 MLS/HR; Start 02/09/17 at 17:00 Warfarin Sodium (Coumadin) 2 mg DAILY@17 PO Last administered on 02/12/17 17: 53; Admin Dose 2 MG; Start 02/10/17 at 17:00 Warfarin Sodium (Coumadin) 5 mg DAILY@17 PO Last administered on 02/12/17 17: 54; Admin Dose 5 MG; Start 02/10/17 at 17:00 Oxycodone HCl (Roxicodone) 5 mg TID PO Last administered on 02/12/17 21:03; Admin Dose 5 MG; Start 02/12/17 at 13:00 Assessment/Plan Additional Assessment/Plan Rehab- lumbar radiculopathy and diskitis, status post transforaminal interbody fusion. Continue rehab activities TIA. End-stage renal disease, on hemodialysis. Diabetes mellitus. Diabetic nephropathy. Coronary artery disease. Hyperlipidemia. Anemia. Paroxysmal atrial fibrillation. Mineral bone disease. ALINE CORREIA MD Feb 13, 2017 08:05
[2017-02-13] MEDS: LUBIPROSTONE 24 MCG CAP PO SCH ×2 (08:30→20:33)
[2017-02-13] MEDS: AMLODIPINE 10 MG TAB PO SCH (08:30)
[2017-02-13] MEDS: SERTRALINE 50 MG TAB PO SCH (08:30)
[2017-02-13] MEDS: TOLTERODINE 2 MG TAB PO SCH ×2 (08:30→20:31)
[2017-02-13] MEDS: METOPROLOL 100 MG TAB PO SCH ×2 (08:31→20:32)
[2017-02-13] MEDS: METOCLOPRAMIDE 10 MG TAB PO SCH ×2 (08:31→20:33)
[2017-02-13] MEDS: oxyCODONE 5 MG TAB PO SCH ×3 (08:32→20:32)
[2017-02-13] MEDS: ASPIRIN 81 MG TAB PO SCH (08:33)
[2017-02-13] MEDS: HEPARIN 5,000 UNIT/0.5 ML VIAL SC SCH ×2 (08:34→20:37)
[2017-02-13] MEDS: SEVELAMER 800 MG TAB PO SCH ×3 (08:38→17:15)
[2017-02-13] MEDS: SENNA TAB PO SCH (08:39)
[2017-02-13] MEDS: POLYETHYLENE GLYCOL 17 GM PACKET PO SCH ×2 (08:39→20:33)
--- NOTE | 2017-02-13 11:24 | PN ---
Date/Time of Note Date/Time of Note DATE: 02/13/17 TIME: 11:23 Assessment/Plan VTE Prophylaxis VTE Prophylaxis Intervention: other Lines/Catheters IV Catheter Type (from [facility]): Mid Line Urinary Cath still in place: No Assessment/Plan Chief Complaint/Hosp Course SUBJECTIVE: The patient is stable. No events overnight. No fevers, chills, nausea, vomiting. OBJECTIVE: HEENT: Head is normocephalic. NECK: Supple. HEART: Regular rate. LUNGS: Show diminished sounds at base. ABDOMEN: Soft, nontender to palpation without rebound or guarding. EXTREMITIES: Negative for clubbing, cyanosis, edema. DERMATOLOGIC: No rashes. MUSCULOSKELETAL: No joint effusions. NEUROLOGIC: No change in exam. ASSESSMENT AND PLAN: 1. Diskitis L5-S1 radiculopathy. The patient is status post transforaminal lumbar interbody fusion. Patient is currently stable. Continue antibiotic therapy. 2. Chronic back pain, improving. Continue current pain regimen. 3. End-stage renal disease. Plan for dialysis today 4. Hypertension. Continue current blood pressure regimen. 5. Atrial fibrillation. The patient is on Coumadin. INR is not at goal. 6. Status post transient ischemic attack. 7. Anemia. Monitor hemoglobin and hematocrit levels. 8. Mineral bone disorder, monitor calcium and phosphorus levels. 9. Diabetes. Continue Accu-Cheks, insulin sliding scale. Problems: Exam/Review of Systems Vital Signs Vitals Vital Signs Date Time Temp Pulse Resp B/P Pulse Ox O2 Delivery O2 Flow Rate FiO2 02/13/17 08:00 98.5 73 18 147/70 96 Room Air Intake and Output 02/12/17 02/12/17 02/13/17 15:00 23:00 07:00 Intake Total 910 ml 200 ml Balance 910 ml 200 ml Results Result Diagram: 02/13/17 0603 02/13/17 0603 Results 24 hrs Laboratory Tests Test 02/12/17 12:04 02/12/17 17:03 02/12/17 21:01 02/13/17 06:03 Bedside Glucose 110 100 163 White Blood Count 7.4 Red Blood Count 2.85 L Hemoglobin 8.5 L Hematocrit 27.7 L Mean Corpuscular Volume 97.2 Mean Corpuscular Hemoglobin 29.8 Mean Corpuscular Hemoglobin Concent 30.7 L Red Cell Distribution Width 15.5 H Platelet Count 295 Mean Platelet Volume 8.4 Neutrophils % 57.1 Lymphocytes % 26.9 Monocytes % 8.1 Eosinophils % 6.7 Basophils % 0.9 Nucleated Red Blood Cells % 0.0 Neutrophils # 4.2 Lymphocytes # 2.0 Monocytes # 0.6 Eosinophils # 0.5 Basophils # 0.1 Nucleated Red Blood Cells # 0.0 Prothrombin Time 17.8 H Prothrombin Time Ratio 1.4 INR International Normalized Ratio 1.46 Sodium Level 138 Potassium Level 4.8 Chloride Level 108 Carbon Dioxide Level 24 Anion Gap 11 Blood Urea Nitrogen 30 H Creatinine 3.50 H Glucose Level 88 Calcium Level 8.7 Phosphorus Level 4.8 Magnesium Level 2.0 Test 02/13/17 07:51 Bedside Glucose 83 Medications Medications Current Medications Diagnostic Test (Pha) (Accu-Chek) 1 ea 02 XX ; Start 02/05/17 at 02:00 Amlodipine Besylate (Norvasc) 10 mg DAILY PO Last administered on 02/13/17 08: 30; Admin Dose 10 MG; Start 02/05/17 at 09:00 Acetaminophen/ Hydrocodone Bitart ([place] (10/325)) 1 tab Q4H PRN PO 4-6 PAIN Last administered on 02/12/17 08:53; Admin Dose 1 TAB; Start 02/04/17 at 21:00 Aspirin (Aspirin) 162 mg DAILY PO Last administered on 02/13/17 08:33; Admin Dose 162 MG; Start 02/05/17 at 09:00 Atorvastatin Calcium (Lipitor) 80 mg QHS PO Last administered on 02/12/17 21: 03; Admin Dose 80 MG; Start 02/04/17 at 21:00 Bisacodyl (Dulcolax Supp) 10 mg Q24H PRN [place] CONSTIPATION; Start 02/04/17 at 21: 00 Clonidine (Catapres) 0.1 mg Q6H PRN PO ELEVATED SYSTOLIC BP Last administered on 02/08/17 06:23; Admin Dose 0.1 MG; Start 02/04/17 at 21:00 Docusate Sodium (Colace) 100 mg QHS PRN PO CONSTIPATION Last administered on 08:46; Admin Dose 100 MG; Start 02/04/17 at 21:00 Heparin Sodium (Porcine) (Heparin (5000 Units/0.5 ml)) 5,000 unit BID SC Last administered on 02/13/17 08:34; Admin Dose 5,000 UNIT; Start 02/04/17 at 21:00 Hydralazine HCl (Apresoline) 75 mg TID PO Last administered on 02/13/17 08:32 ; Admin Dose 75 MG; Start 02/04/17 at 21:00 Lactulose (Enulose) 20 gm DAILY PRN PO CONSTIPATION; Start 02/04/17 at 21:00 Lidocaine (Lidoderm) 1 patch QPM TD Last administered on 02/12/17 21:05; Admin Dose 1 PATCH; Start 02/04/17 at 21:00 Lubiprostone (Amitiza) 24 mcg BID PO Last administered on 02/13/17 08:30; Admin Dose 24 MCG; Start 02/04/17 at 21:30 Metoclopramide HCl (Reglan) 5 mg BID PO Last administered on 02/13/17 08:31; Admin Dose 5 MG; Start 02/04/17 at 21:00 Metoprolol Tartrate (Lopressor) 100 mg BID PO Last administered on 02/13/17 08 :31; Admin Dose 100 MG; Start 02/04/17 at 21:00 Morphine Sulfate (morphine) 2 mg Q3H PRN IV PAIN LEVEL 6-10 Last administered on 02/12/17 14:57; Admin Dose 2 MG; Start 02/04/17 at 21:00 Naloxone HCl (Narcan) 0.2 mg Q2M PRN IV RR 8 BREATHS/MIN OR LESS; Start at 21:00 Nitroglycerin (Nitroglycerin 2% Oint) 1 inch Q6 TD Last administered on 06:46; Admin Dose 1 INCH; Start 02/05/17 at 00:00 Ondansetron HCl (Zofran Inj) 4 mg Q6H PRN IV NAUSEA AND/OR VOMITING; Start at 21:00 Pantoprazole (Protonix Tab) 40 mg DAILY@06 PO Last administered on 02/13/17 06 :45; Admin Dose 40 MG; Start 02/05/17 at 06:00 Polyethylene Glycol (Miralax) 17 gm BID PO Last administered on 02/12/17 08:54 ; Admin Dose 17 GM; Start 02/04/17 at 21:00 IV Flush (NS 10 ml) 10 ml PRN PRN IV IV PROTOCOL Last administered on 00:41; Admin Dose 10 ML; Start 02/04/17 at 21:30 Senna (Senokot) 1 tab DAILY PO Last administered on 02/12/17 08:52; Admin Dose 1 TAB; Start 02/05/17 at 09:00 Sertraline HCl (Zoloft) 50 mg DAILY PO Last administered on 02/13/17 08:30; Admin Dose 50 MG; Start 02/05/17 at 09:00 Sodium Biphosphate/ Sodium Phosphate (Fleet Enema) 133 ml DAILY PRN [place] CONSTIPATION; Start 02/04/17 at 21:30 Tolterodine Tartrate (Detrol) 2 mg BID PO Last administered on 02/13/17 08:30 ; Admin Dose 2 MG; Start 02/04/17 at 21:15 Zolpidem Tartrate (Ambien) 5 mg HS PRN PO INSOMNIA Last administered on 21:03; Admin Dose 5 MG; Start 02/04/17 at 21:30 Miscellaneous Information 1 ea NOTE XX ; Start 02/04/17 at 21:30 Glucose (Glutose) 15 gm Q15M PRN PO DECREASED GLUCOSE; Start 02/04/17 at 21:30 Glucose (Glutose) 22.5 gm Q15M PRN PO DECREASED GLUCOSE Last administered on 15:41; Admin Dose 22.5 GM; Start 02/04/17 at 21:30 Dextrose (D50w Syringe) 25 ml Q15M PRN IV DECREASED GLUCOSE; Start 02/04/17 at 21:30 Dextrose (D50w Syringe) 50 ml Q15M PRN IV DECREASED GLUCOSE; Start 02/04/17 at 21:30 Glucagon (Glucagen) 1 mg Q15M PRN IM DECREASED GLUCOSE; Start 02/04/17 at 21:30 Glucose 15 gm 15 gm Q15M PRN BUCCAL DECREASED GLUCOSE; Start 02/04/17 at 21:30 Ceftriaxone Sodium (Rocephin) 50 ml @ 100 mls/hr Q24H IVPB Last administered on 02/12/17 17:53; Admin Dose 100 MLS/HR; Start 02/09/17 at 17:00 Warfarin Sodium (Coumadin) 2 mg DAILY@17 PO Last administered on 02/12/17 17: 53; Admin Dose 2 MG; Start 02/10/17 at 17:00 Warfarin Sodium (Coumadin) 5 mg DAILY@17 PO Last administered on 02/12/17 17: 54; Admin Dose 5 MG; Start 02/10/17 at 17:00 Oxycodone HCl (Roxicodone) 5 mg TID PO Last administered on 02/13/17 08:32; Admin Dose 5 MG; Start 02/12/17 at 13:00 Miscellaneous Information (*Rx Drug Level Order Reminder*) RANDOM VANCOMYCIN LEVEL 1... ONCE ONCE XX ; Start 02/14/17 at 05:00; Stop 02/14/17 at 05:01 CHANDA ROJAS DO Feb 13, 2017 11:24
[2017-02-13] MEDS ORDERED: EPOETIN 10000 UNITS/1 ML INJ (ESRD) SC ONE (13:00)
[2017-02-13] MEDS: CEFTRIAXONE 1 GM/50 ML (PMX) 50 ML IVPB SCH (17:15)
[2017-02-13] MEDS: WARFARIN 7.5 MG TAB PO SCH (17:15)
--- NOTE | 2017-02-13 17:48 | CONS ---
Date/Time of Note Date/Time of Note DATE: 02/13/17 TIME: 17:47 Consult Date/Type/Reason Admit Date/Time Feb 04, 2017 at 20:01 Type of Consultation: CARDIOLOGY Subjective CARDIOLOGY FOLLOW UP NOTE Discussed with staff and she denies any chest pain or pressure or palpitation to me. she denies back pain and states she is able to walk better now. She states she is still working with PT no bleeding objective: General: no acute distress HEENT: NC/AT. pupils are equal. round. NECK: NO JVD. no stridor. CV: RRR. systolic murmur; no gallop or rubs. PULM: no wheezing or rhonchi. GI: SOFT, NT, ND, no rebound or guarding Extremity: trace B/L LE edema. no clubbing. neuro: awake and alert, Psych: calm and pleasant rectal: deferred Derm: multiple tattoos. Objective Vital Signs Date Time Temp Pulse Resp B/P Pulse Ox O2 Delivery O2 Flow Rate FiO2 02/13/17 14:00 98.0 68 18 154/59 96 Room Air Intake and Output 02/12/17 02/12/17 02/13/17 15:00 23:00 07:00 Intake Total 910 ml 200 ml Balance 910 ml 200 ml Results/Medications Result Diagram: 02/13/17 0603 02/13/17 0603 Results 24 hrs Laboratory Tests Test 02/12/17 21:01 02/13/17 06:03 02/13/17 07:51 02/13/17 12:07 Bedside Glucose 163 83 129 White Blood Count 7.4 Red Blood Count 2.85 L Hemoglobin 8.5 L Hematocrit 27.7 L Mean Corpuscular Volume 97.2 Mean Corpuscular Hemoglobin 29.8 Mean Corpuscular Hemoglobin Concent 30.7 L Red Cell Distribution Width 15.5 H Platelet Count 295 Mean Platelet Volume 8.4 Neutrophils % 57.1 Lymphocytes % 26.9 Monocytes % 8.1 Eosinophils % 6.7 Basophils % 0.9 Nucleated Red Blood Cells % 0.0 Neutrophils # 4.2 Lymphocytes # 2.0 Monocytes # 0.6 Eosinophils # 0.5 Basophils # 0.1 Nucleated Red Blood Cells # 0.0 Prothrombin Time 17.8 H Prothrombin Time Ratio 1.4 INR International Normalized Ratio 1.46 Sodium Level 138 Potassium Level 4.8 Chloride Level 108 Carbon Dioxide Level 24 Anion Gap 11 Blood Urea Nitrogen 30 H Creatinine 3.50 H Glucose Level 88 Calcium Level 8.7 Phosphorus Level 4.8 Magnesium Level 2.0 Test 02/13/17 17:23 Bedside Glucose 131 Medications Current Medications Diagnostic Test (Pha) (Accu-Chek) 1 ea 02 XX ; Start 02/05/17 at 02:00 Amlodipine Besylate (Norvasc) 10 mg DAILY PO Last administered on 02/13/17 08: 30; Admin Dose 10 MG; Start 02/05/17 at 09:00 Acetaminophen/ Hydrocodone Bitart ([place] (10/325)) 1 tab Q4H PRN PO 4-6 PAIN Last administered on 02/12/17 08:53; Admin Dose 1 TAB; Start 02/04/17 at 21:00 Aspirin (Aspirin) 162 mg DAILY PO Last administered on 02/13/17 08:33; Admin Dose 162 MG; Start 02/05/17 at 09:00 Atorvastatin Calcium (Lipitor) 80 mg QHS PO Last administered on 02/12/17 21: 03; Admin Dose 80 MG; Start 02/04/17 at 21:00 Bisacodyl (Dulcolax Supp) 10 mg Q24H PRN [place] CONSTIPATION; Start 02/04/17 at 21: 00 Clonidine (Catapres) 0.1 mg Q6H PRN PO ELEVATED SYSTOLIC BP Last administered on 02/08/17 06:23; Admin Dose 0.1 MG; Start 02/04/17 at 21:00 Docusate Sodium (Colace) 100 mg QHS PRN PO CONSTIPATION Last administered on 08:46; Admin Dose 100 MG; Start 02/04/17 at 21:00 Heparin Sodium (Porcine) (Heparin (5000 Units/0.5 ml)) 5,000 unit BID SC Last administered on 02/13/17 08:34; Admin Dose 5,000 UNIT; Start 02/04/17 at 21:00 Hydralazine HCl (Apresoline) 75 mg TID PO Last administered on 02/13/17 12:43 ; Admin Dose 75 MG; Start 02/04/17 at 21:00 Lactulose (Enulose) 20 gm DAILY PRN PO CONSTIPATION; Start 02/04/17 at 21:00 Lidocaine (Lidoderm) 1 patch QPM TD Last administered on 02/12/17 21:05; Admin Dose 1 PATCH; Start 02/04/17 at 21:00 Lubiprostone (Amitiza) 24 mcg BID PO Last administered on 02/13/17 08:30; Admin Dose 24 MCG; Start 02/04/17 at 21:30 Metoclopramide HCl (Reglan) 5 mg BID PO Last administered on 02/13/17 08:31; Admin Dose 5 MG; Start 02/04/17 at 21:00 Metoprolol Tartrate (Lopressor) 100 mg BID PO Last administered on 02/13/17 08 :31; Admin Dose 100 MG; Start 02/04/17 at 21:00 Morphine Sulfate (morphine) 2 mg Q3H PRN IV PAIN LEVEL 6-10 Last administered on 02/12/17 14:57; Admin Dose 2 MG; Start 02/04/17 at 21:00 Naloxone HCl (Narcan) 0.2 mg Q2M PRN IV RR 8 BREATHS/MIN OR LESS; Start at 21:00 Nitroglycerin (Nitroglycerin 2% Oint) 1 inch Q6 TD Last administered on 12:42; Admin Dose 1 INCH; Start 02/05/17 at 00:00 Ondansetron HCl (Zofran Inj) 4 mg Q6H PRN IV NAUSEA AND/OR VOMITING; Start at 21:00 Pantoprazole (Protonix Tab) 40 mg DAILY@06 PO Last administered on 02/13/17 06 :45; Admin Dose 40 MG; Start 02/05/17 at 06:00 Polyethylene Glycol (Miralax) 17 gm BID PO Last administered on 02/12/17 08:54 ; Admin Dose 17 GM; Start 02/04/17 at 21:00 IV Flush (NS 10 ml) 10 ml PRN PRN IV IV PROTOCOL Last administered on 00:41; Admin Dose 10 ML; Start 02/04/17 at 21:30 Senna (Senokot) 1 tab DAILY PO Last administered on 02/12/17 08:52; Admin Dose 1 TAB; Start 02/05/17 at 09:00 Sertraline HCl (Zoloft) 50 mg DAILY PO Last administered on 02/13/17 08:30; Admin Dose 50 MG; Start 02/05/17 at 09:00 Sodium Biphosphate/ Sodium Phosphate (Fleet Enema) 133 ml DAILY PRN [place] CONSTIPATION; Start 02/04/17 at 21:30 Tolterodine Tartrate (Detrol) 2 mg BID PO Last administered on 02/13/17 08:30 ; Admin Dose 2 MG; Start 02/04/17 at 21:15 Zolpidem Tartrate (Ambien) 5 mg HS PRN PO INSOMNIA Last administered on 21:03; Admin Dose 5 MG; Start 02/04/17 at 21:30 Miscellaneous Information 1 ea NOTE XX ; Start 02/04/17 at 21:30 Glucose (Glutose) 15 gm Q15M PRN PO DECREASED GLUCOSE; Start 02/04/17 at 21:30 Glucose (Glutose) 22.5 gm Q15M PRN PO DECREASED GLUCOSE Last administered on 15:41; Admin Dose 22.5 GM; Start 02/04/17 at 21:30 Dextrose (D50w Syringe) 25 ml Q15M PRN IV DECREASED GLUCOSE; Start 02/04/17 at 21:30 Dextrose (D50w Syringe) 50 ml Q15M PRN IV DECREASED GLUCOSE; Start 02/04/17 at 21:30 Glucagon (Glucagen) 1 mg Q15M PRN IM DECREASED GLUCOSE; Start 02/04/17 at 21:30 Glucose 15 gm 15 gm Q15M PRN BUCCAL DECREASED GLUCOSE; Start 02/04/17 at 21:30 Ceftriaxone Sodium (Rocephin) 50 ml @ 100 mls/hr Q24H IVPB Last administered on 02/13/17 17:15; Admin Dose 100 MLS/HR; Start 02/09/17 at 17:00 Oxycodone HCl (Roxicodone) 5 mg TID PO Last administered on 02/13/17 12:43; Admin Dose 5 MG; Start 02/12/17 at 13:00 Miscellaneous Information (*Rx Drug Level Order Reminder*) RANDOM VANCOMYCIN LEVEL 1... ONCE ONCE XX ; Start 02/14/17 at 05:00; Stop 02/14/17 at 05:01 Warfarin Sodium (Coumadin) 7.5 mg DAILY@17 PO Last administered on 10/7/17at 17 :15; Admin Dose 7.5 MG; Start 02/13/17 at 17:00 Assessment/Plan Chief Complaint/Hosp Course 1. Paroxysmal atrial fibrillation. Currently appears to be remaining in sinus rhythm. 2. History of multiple cerebrovascular accidents (CVA). 3. Renal failure on dialysis. 4. Hypertension. 5. Chronic obstructive pulmonary disease (COPD). 6. History of spinal infection and s/p spinal surgery. 7. Anemia. 8. Dyslipidemia. 9. Diabetes. PLAN: cont coumadin and adjust based on daily INR. We will continue with the current blood pressure medications. Dialysis will be continued as per renal. Physical therapy and rehabilitation. Antibiotic as per Internal Medicine and ID recommendations. Once the INR is therapeutic, aspirin will be discontinued as well. Thank you for this referral. I will Continue to follow along with you. TAMERA BAILEY MD [facility] Problems: TAMERA BAILEY MD Feb 13, 2017 17:48
[2017-02-13] MEDS: ATORVASTATIN 80 MG TAB PO SCH (20:31)
[2017-02-13] MEDS: LIDOCAINE 5% PATCH TD SCH (20:35)
[2017-02-13] MEDS: ZOLPIDEM 5 MG TAB PO PRN (20:44)
[2017-02-14 02:00] VITALS: BP 138/76; PULSE 76; RESP 17
[2017-02-14] MEDS: ACCU-CHEK XX SCH (02:00)
[2017-02-14] MEDS: PANTOPRAZOLE (EC) 40 MG TAB PO SCH (06:20)
[2017-02-14] MEDS: NITROGLYCERIN 2% 1 GM OINT PKT TD SCH ×5 (06:20→23:52)
[2017-02-14] MEDS: HYDROCODONE/APAP (10/325) TAB PO PRN (06:30)
[2017-02-14] MEDS: INSULIN ASPART [NOVOLOG] 3 ML PEN SC SCH ×4 (07:35→21:00)
[2017-02-14 08:00] VITALS: BP 141/75; PULSE 80; RESP 18
[2017-02-14] MEDS: METOPROLOL 100 MG TAB PO SCH ×2 (08:21→20:50)
[2017-02-14] MEDS: AMLODIPINE 10 MG TAB PO SCH (08:21)
[2017-02-14] MEDS: TOLTERODINE 2 MG TAB PO SCH ×2 (08:21→20:51)
[2017-02-14] MEDS: SERTRALINE 50 MG TAB PO SCH (08:22)
[2017-02-14] MEDS: METOCLOPRAMIDE 10 MG TAB PO SCH ×2 (08:22→20:50)
[2017-02-14] MEDS: SEVELAMER 800 MG TAB PO SCH ×3 (08:23→17:34)
[2017-02-14] MEDS: ASPIRIN 81 MG TAB PO SCH (08:23)
[2017-02-14] MEDS: LUBIPROSTONE 24 MCG CAP PO SCH ×2 (08:23→20:50)
[2017-02-14] MEDS: oxyCODONE 5 MG TAB PO SCH ×3 (08:23→20:51)
[2017-02-14] MEDS: HEPARIN 5,000 UNIT/0.5 ML VIAL SC SCH ×2 (08:25→20:53)
[2017-02-14] MEDS: SENNA TAB PO SCH (08:29)
[2017-02-14] MEDS: POLYETHYLENE GLYCOL 17 GM PACKET PO SCH ×2 (08:29→21:00)
[2017-02-14] MEDS ORDERED: VANCOMYCIN 1.25 GM in SOD CHLORIDE 0.9% 250 ML IVPB SCH ×2 (10:00→14:00)
[2017-02-14] MEDS ORDERED: VANCOMYCIN 1 GM in NS 250 ML IVPB SCH (10:00)
--- NOTE | 2017-02-14 11:21 | PN ---
Date/Time of Note Date/Time of Note DATE: 02/14/17 TIME: 11:20 Assessment/Plan VTE Prophylaxis VTE Prophylaxis Intervention: other Lines/Catheters IV Catheter Type (from Nrs): Mid Line Urinary Cath still in place: No Assessment/Plan Chief Complaint/Hosp Course SUBJECTIVE: The patient is stable. No events overnight. No fevers, chills, nausea, vomiting. OBJECTIVE: HEENT: Head is normocephalic. NECK: Supple. HEART: Regular rate. LUNGS: Show diminished sounds at base. ABDOMEN: Soft, nontender to palpation without rebound or guarding. EXTREMITIES: Negative for clubbing, cyanosis, edema. DERMATOLOGIC: No rashes. MUSCULOSKELETAL: No joint effusions. NEUROLOGIC: No change in exam. ASSESSMENT AND PLAN: 1. Diskitis L5-S1 radiculopathy. The patient is status post transforaminal lumbar interbody fusion. Patient is currently stable. Continue antibiotic therapy. 2. Chronic back pain, improving. Continue current pain regimen. 3. End-stage renal disease. Plan for dialysis in am 4. Hypertension. Continue current blood pressure regimen. 5. Atrial fibrillation. The patient is on Coumadin. INR is not at goal. 6. Status post transient ischemic attack. 7. Anemia. Monitor hemoglobin and hematocrit levels. 8. Mineral bone disorder, monitor calcium and phosphorus levels. 9. Diabetes. Continue Accu-Cheks, insulin sliding scale. Problems: Exam/Review of Systems Vital Signs Vitals Vital Signs Date Time Temp Pulse Resp B/P Pulse Ox O2 Delivery O2 Flow Rate FiO2 02/14/17 08:00 98.0 80 18 141/75 98 Room Air Intake and Output 02/13/17 02/13/17 02/14/17 15:00 23:00 07:00 Intake Total 1230 ml Output Total 3000 ml Balance -1770 ml Results Result Diagram: 02/13/17 0603 02/13/17 0603 Results 24 hrs Laboratory Tests Test 02/13/17 12:07 02/13/17 17:23 02/13/17 20:34 02/14/17 02:29 Bedside Glucose 129 131 187 158 Test 02/14/17 06:25 02/14/17 07:41 Random Vancomycin Level 11.7 Bedside Glucose 71 Medications Medications Current Medications Diagnostic Test (Pha) (Accu-Chek) 1 ea 02 XX ; Start 02/05/17 at 02:00 Amlodipine Besylate (Norvasc) 10 mg DAILY PO Last administered on 02/14/17 08: 21; Admin Dose 10 MG; Start 02/05/17 at 09:00 Acetaminophen/ Hydrocodone Bitart ([place] (10/325)) 1 tab Q4H PRN PO 4-6 PAIN Last administered on 02/14/17 06:30; Admin Dose 1 TAB; Start 02/04/17 at 21:00 Aspirin (Aspirin) 162 mg DAILY PO Last administered on 02/14/17 08:23; Admin Dose 162 MG; Start 02/05/17 at 09:00 Atorvastatin Calcium (Lipitor) 80 mg QHS PO Last administered on 02/13/17 20: 31; Admin Dose 80 MG; Start 02/04/17 at 21:00 Bisacodyl (Dulcolax Supp) 10 mg Q24H PRN [place] CONSTIPATION; Start 02/04/17 at 21: 00 Clonidine (Catapres) 0.1 mg Q6H PRN PO ELEVATED SYSTOLIC BP Last administered on 02/08/17 06:23; Admin Dose 0.1 MG; Start 02/04/17 at 21:00 Docusate Sodium (Colace) 100 mg QHS PRN PO CONSTIPATION Last administered on 08:46; Admin Dose 100 MG; Start 02/04/17 at 21:00 Heparin Sodium (Porcine) (Heparin (5000 Units/0.5 ml)) 5,000 unit BID SC Last administered on 02/14/17 08:25; Admin Dose 5,000 UNIT; Start 02/04/17 at 21:00 Hydralazine HCl (Apresoline) 75 mg TID PO Last administered on 02/14/17 08:22 ; Admin Dose 75 MG; Start 02/04/17 at 21:00 Lactulose (Enulose) 20 gm DAILY PRN PO CONSTIPATION; Start 02/04/17 at 21:00 Lidocaine (Lidoderm) 1 patch QPM TD Last administered on 02/13/17 20:35; Admin Dose 1 PATCH; Start 02/04/17 at 21:00 Lubiprostone (Amitiza) 24 mcg BID PO Last administered on 02/14/17 08:23; Admin Dose 24 MCG; Start 02/04/17 at 21:30 Metoclopramide HCl (Reglan) 5 mg BID PO Last administered on 02/14/17 08:22; Admin Dose 5 MG; Start 02/04/17 at 21:00 Metoprolol Tartrate (Lopressor) 100 mg BID PO Last administered on 02/14/17 08 :21; Admin Dose 100 MG; Start 02/04/17 at 21:00 Morphine Sulfate (morphine) 2 mg Q3H PRN IV PAIN LEVEL 6-10 Last administered on 02/12/17 14:57; Admin Dose 2 MG; Start 02/04/17 at 21:00 Naloxone HCl (Narcan) 0.2 mg Q2M PRN IV RR 8 BREATHS/MIN OR LESS; Start at 21:00 Nitroglycerin (Nitroglycerin 2% Oint) 1 inch Q6 TD Last administered on 06:20; Admin Dose 1 INCH; Start 02/05/17 at 00:00 Ondansetron HCl (Zofran Inj) 4 mg Q6H PRN IV NAUSEA AND/OR VOMITING; Start at 21:00 Pantoprazole (Protonix Tab) 40 mg DAILY@06 PO Last administered on 02/14/17 06 :20; Admin Dose 40 MG; Start 02/05/17 at 06:00 Polyethylene Glycol (Miralax) 17 gm BID PO Last administered on 02/12/17 08:54 ; Admin Dose 17 GM; Start 02/04/17 at 21:00 IV Flush (NS 10 ml) 10 ml PRN PRN IV IV PROTOCOL Last administered on 00:41; Admin Dose 10 ML; Start 02/04/17 at 21:30 Senna (Senokot) 1 tab DAILY PO Last administered on 02/12/17 08:52; Admin Dose 1 TAB; Start 02/05/17 at 09:00 Sertraline HCl (Zoloft) 50 mg DAILY PO Last administered on 02/14/17 08:22; Admin Dose 50 MG; Start 02/05/17 at 09:00 Sodium Biphosphate/ Sodium Phosphate (Fleet Enema) 133 ml DAILY PRN [place] CONSTIPATION; Start 02/04/17 at 21:30 Tolterodine Tartrate (Detrol) 2 mg BID PO Last administered on 02/14/17 08:21 ; Admin Dose 2 MG; Start 02/04/17 at 21:15 Zolpidem Tartrate (Ambien) 5 mg HS PRN PO INSOMNIA Last administered on 20:44; Admin Dose 5 MG; Start 02/04/17 at 21:30 Miscellaneous Information 1 ea NOTE XX ; Start 02/04/17 at 21:30 Glucose (Glutose) 15 gm Q15M PRN PO DECREASED GLUCOSE; Start 02/04/17 at 21:30 Glucose (Glutose) 22.5 gm Q15M PRN PO DECREASED GLUCOSE Last administered on 15:41; Admin Dose 22.5 GM; Start 02/04/17 at 21:30 Dextrose (D50w Syringe) 25 ml Q15M PRN IV DECREASED GLUCOSE; Start 02/04/17 at 21:30 Dextrose (D50w Syringe) 50 ml Q15M PRN IV DECREASED GLUCOSE; Start 02/04/17 at 21:30 Glucagon (Glucagen) 1 mg Q15M PRN IM DECREASED GLUCOSE; Start 02/04/17 at 21:30 Glucose (Glutose) 15 gm Q15M PRN BUCCAL DECREASED GLUCOSE; Start 02/04/17 at 21 :30 Oxycodone HCl (Roxicodone) 5 mg TID PO Last administered on 02/14/17 08:23; Admin Dose 5 MG; Start 02/12/17 at 13:00 Warfarin Sodium 7.5 mg 7.5 mg DAILY@17 PO Last administered on 02/13/17 17:15 ; Admin Dose 7.5 MG; Start 02/13/17 at 17:00 Vancomycin HCl/ Sodium Chloride (Vancocin/NS) 250 ml @ 83.333 mls/ hr Q72H IVPB ; Start 02/14/17 at 10:00 CHANDA ROJAS DO Feb 14, 2017 11:21
[2017-02-14] MEDS ORDERED: VANCOMYCIN IV PER PHARMACY XX SCH (12:00)
[2017-02-14] MEDS ORDERED: FOSFOMYCIN 3 GM PACKET PO ONE (12:00)
[2017-02-14] MEDS ORDERED: CEFTRIAXONE 1 GM/50 ML (PMX) 50 ML IVPB SCH (12:00)
[2017-02-14 14:00] VITALS: BP 129/62; PULSE 72; RESP 18
--- NOTE | 2017-02-14 15:48 | CONS ---
Date/Time of Note Date/Time of Note DATE: 02/14/17 TIME: 15:47 Assessment/Plan Assessment/Plan Chief Complaint/Hosp Course SUBJECTIVE DATA: No acute changes overnight. No fevers. Klebsiella and E coli susceptible to Levaquin. INDWELLINGS: Patient has PICC line and Perm-A-Cath. ANTIMICROBIALS: Vanco, Rocephin OBJECTIVE DATA: GENERAL: This is obese, well-developed, middle-aged woman who is awake, in no distress. HEENT: Head atraumatic, normocephalic. Sclerae anicteric. Buccal mucosa pink. NECK: Supple. CHEST: Rise symmetrical. Breath sounds diminished at the bases. HEART: S1, S2. ABDOMEN: Soft, bowel sounds present. EXTREMITIES: Without cyanosis. ASSESSMENT: 1. L5-S1 diskitis with radiculopathy, status post surgical intervention on January 22, 2017. 2. Positive urine cx==> no evidence of active infection. 3. End-stage renal disease, hemodialysis dependent. 4. Diabetes. 5. Anemia. 6. Hypertension. PLAN: Patient remains stable. Continue abx to complete 6 weeks for discitis till Mar [address] Broussard Problems: Consultation Date/Type/Reason Admit Date/Time Feb 04, 2017 at 20:01 Type of Consultation: id Exam/Review of Systems Vital Signs Vitals Vital Signs Date Time Temp Pulse Resp B/P Pulse Ox O2 Delivery O2 Flow Rate FiO2 02/14/17 14:00 72 18 129/62 98 Room Air 02/14/17 08:00 98.0 Intake and Output 02/13/17 02/13/17 02/14/17 15:00 23:00 07:00 Intake Total 1230 ml Output Total 3000 ml Balance -1770 ml Results Result Diagram: 02/13/17 0603 02/13/17 0603 Results 24 hrs Laboratory Tests Test 02/13/17 17:23 02/13/17 20:34 02/14/17 02:29 02/14/17 06:25 Bedside Glucose 131 187 158 Random Vancomycin Level 11.7 Test 02/14/17 07:41 02/14/17 12:30 Bedside Glucose 71 120 Medications Medications Current Medications Diagnostic Test (Pha) (Accu-Chek) 1 ea 02 XX ; Start 02/05/17 at 02:00 Amlodipine Besylate (Norvasc) 10 mg DAILY PO Last administered on 02/14/17 08: 21; Admin Dose 10 MG; Start 02/05/17 at 09:00 Acetaminophen/ Hydrocodone Bitart ([place] (10/325)) 1 tab Q4H PRN PO 4-6 PAIN Last administered on 02/14/17 06:30; Admin Dose 1 TAB; Start 02/04/17 at 21:00 Aspirin (Aspirin) 162 mg DAILY PO Last administered on 02/14/17 08:23; Admin Dose 162 MG; Start 02/05/17 at 09:00 Atorvastatin Calcium (Lipitor) 80 mg QHS PO Last administered on 02/13/17 20: 31; Admin Dose 80 MG; Start 02/04/17 at 21:00 Bisacodyl (Dulcolax Supp) 10 mg Q24H PRN [place] CONSTIPATION; Start 02/04/17 at 21: 00 Clonidine (Catapres) 0.1 mg Q6H PRN PO ELEVATED SYSTOLIC BP Last administered on 02/08/17 06:23; Admin Dose 0.1 MG; Start 02/04/17 at 21:00 Docusate Sodium (Colace) 100 mg QHS PRN PO CONSTIPATION Last administered on 08:46; Admin Dose 100 MG; Start 02/04/17 at 21:00 Heparin Sodium (Porcine) (Heparin (5000 Units/0.5 ml)) 5,000 unit BID SC Last administered on 02/14/17 08:25; Admin Dose 5,000 UNIT; Start 02/04/17 at 21:00 Hydralazine HCl (Apresoline) 75 mg TID PO Last administered on 02/14/17 12:57 ; Admin Dose 75 MG; Start 02/04/17 at 21:00 Lactulose (Enulose) 20 gm DAILY PRN PO CONSTIPATION; Start 02/04/17 at 21:00 Lidocaine (Lidoderm) 1 patch QPM TD Last administered on 02/13/17 20:35; Admin Dose 1 PATCH; Start 02/04/17 at 21:00 Lubiprostone (Amitiza) 24 mcg BID PO Last administered on 02/14/17 08:23; Admin Dose 24 MCG; Start 02/04/17 at 21:30 Metoclopramide HCl (Reglan) 5 mg BID PO Last administered on 02/14/17 08:22; Admin Dose 5 MG; Start 02/04/17 at 21:00 Metoprolol Tartrate (Lopressor) 100 mg BID PO Last administered on 02/14/17 08 :21; Admin Dose 100 MG; Start 02/04/17 at 21:00 Morphine Sulfate (morphine) 2 mg Q3H PRN IV PAIN LEVEL 6-10 Last administered on 02/12/17 14:57; Admin Dose 2 MG; Start 02/04/17 at 21:00 Naloxone HCl (Narcan) 0.2 mg Q2M PRN IV RR 8 BREATHS/MIN OR LESS; Start at 21:00 Nitroglycerin (Nitroglycerin 2% Oint) 1 inch Q6 TD Last administered on 06:20; Admin Dose 1 INCH; Start 02/05/17 at 00:00 Ondansetron HCl (Zofran Inj) 4 mg Q6H PRN IV NAUSEA AND/OR VOMITING; Start at 21:00 Pantoprazole (Protonix Tab) 40 mg DAILY@06 PO Last administered on 02/14/17 06 :20; Admin Dose 40 MG; Start 02/05/17 at 06:00 Polyethylene Glycol (Miralax) 17 gm BID PO Last administered on 02/12/17 08:54 ; Admin Dose 17 GM; Start 02/04/17 at 21:00 IV Flush (NS 10 ml) 10 ml PRN PRN IV IV PROTOCOL Last administered on 00:41; Admin Dose 10 ML; Start 02/04/17 at 21:30 Senna (Senokot) 1 tab DAILY PO Last administered on 02/12/17 08:52; Admin Dose 1 TAB; Start 02/05/17 at 09:00 Sertraline HCl (Zoloft) 50 mg DAILY PO Last administered on 02/14/17 08:22; Admin Dose 50 MG; Start 02/05/17 at 09:00 Sodium Biphosphate/ Sodium Phosphate (Fleet Enema) 133 ml DAILY PRN [place] CONSTIPATION; Start 02/04/17 at 21:30 Tolterodine Tartrate (Detrol) 2 mg BID PO Last administered on 02/14/17 08:21 ; Admin Dose 2 MG; Start 02/04/17 at 21:15 Zolpidem Tartrate (Ambien) 5 mg HS PRN PO INSOMNIA Last administered on 20:44; Admin Dose 5 MG; Start 02/04/17 at 21:30 Miscellaneous Information 1 ea NOTE XX ; Start 02/04/17 at 21:30 Glucose (Glutose) 15 gm Q15M PRN PO DECREASED GLUCOSE; Start 02/04/17 at 21:30 Glucose (Glutose) 22.5 gm Q15M PRN PO DECREASED GLUCOSE Last administered on 15:41; Admin Dose 22.5 GM; Start 02/04/17 at 21:30 Dextrose (D50w Syringe) 25 ml Q15M PRN IV DECREASED GLUCOSE; Start 02/04/17 at 21:30 Dextrose (D50w Syringe) 50 ml Q15M PRN IV DECREASED GLUCOSE; Start 02/04/17 at 21:30 Glucagon (Glucagen) 1 mg Q15M PRN IM DECREASED GLUCOSE; Start 02/04/17 at 21:30 Glucose (Glutose) 15 gm Q15M PRN BUCCAL DECREASED GLUCOSE; Start 02/04/17 at 21 :30 Oxycodone HCl (Roxicodone) 5 mg TID PO Last administered on 02/14/17 12:58; Admin Dose 5 MG; Start 02/12/17 at 13:00 Warfarin Sodium 7.5 mg 7.5 mg DAILY@17 PO Last administered on 02/13/17 17:15 ; Admin Dose 7.5 MG; Start 02/13/17 at 17:00 Ceftriaxone Sodium 50 ml @ 100 mls/hr Q24H IVPB ; Start 02/14/17 at 12:00 Vancomycin HCl/ Sodium Chloride (Vancocin/NS) 250 ml @ 83.333 mls/ hr Q72H IVPB ; Start 02/14/17 at 14:00 ADALID LEO NP Feb 14, 2017 15:48
[2017-02-14] MEDS: WARFARIN 7.5 MG TAB PO SCH (17:34)
--- NOTE | 2017-02-14 18:47 | CONS ---
Date/Time of Note Date/Time of Note DATE: 02/14/17 TIME: 18:47 Consult Date/Type/Reason Admit Date/Time Feb 04, 2017 at 20:01 Type of Consultation: CARD Subjective CARDIOLOGY FOLLOW UP NOTE Discussed with staff she denies any chest pain or pressure or palpitation to me. she denies back pain and states she is able to walk better now. She states she is still working with PT no bleeding objective: General: no acute distress HEENT: NC/AT. pupils are equal. round. NECK: NO JVD. no stridor. CV: RRR. systolic murmur; no gallop or rubs. PULM: no wheezing or rhonchi. GI: SOFT, NT, ND, no rebound or guarding Extremity: trace B/L LE edema. no clubbing. neuro: awake and alert, Psych: calm and pleasant rectal: deferred Derm: multiple tattoos. Objective Vital Signs Date Time Temp Pulse Resp B/P Pulse Ox O2 Delivery O2 Flow Rate FiO2 02/14/17 14:00 72 18 129/62 98 Room Air 02/14/17 08:00 98.0 Intake and Output 02/13/17 02/13/17 02/14/17 15:00 23:00 07:00 Intake Total 1230 ml Output Total 3000 ml Balance -1770 ml Results/Medications Result Diagram: 02/13/17 0603 02/13/17 0603 Results 24 hrs Laboratory Tests Test 02/13/17 20:34 02/14/17 02:29 02/14/17 06:25 02/14/17 07:41 Bedside Glucose 187 158 71 Random Vancomycin Level 11.7 Test 02/14/17 12:30 02/14/17 17:15 Bedside Glucose 120 131 Medications Current Medications Diagnostic Test (Pha) (Accu-Chek) 1 ea 02 XX ; Start 02/05/17 at 02:00 Amlodipine Besylate (Norvasc) 10 mg DAILY PO Last administered on 02/14/17 08: 21; Admin Dose 10 MG; Start 02/05/17 at 09:00 Acetaminophen/ Hydrocodone Bitart ([place] (10/325)) 1 tab Q4H PRN PO 4-6 PAIN Last administered on 02/14/17 06:30; Admin Dose 1 TAB; Start 02/04/17 at 21:00 Aspirin (Aspirin) 162 mg DAILY PO Last administered on 02/14/17 08:23; Admin Dose 162 MG; Start 02/05/17 at 09:00 Atorvastatin Calcium (Lipitor) 80 mg QHS PO Last administered on 02/13/17 20: 31; Admin Dose 80 MG; Start 02/04/17 at 21:00 Bisacodyl (Dulcolax Supp) 10 mg Q24H PRN [place] CONSTIPATION; Start 02/04/17 at 21: 00 Clonidine (Catapres) 0.1 mg Q6H PRN PO ELEVATED SYSTOLIC BP Last administered on 02/08/17 06:23; Admin Dose 0.1 MG; Start 02/04/17 at 21:00 Docusate Sodium (Colace) 100 mg QHS PRN PO CONSTIPATION Last administered on 08:46; Admin Dose 100 MG; Start 02/04/17 at 21:00 Heparin Sodium (Porcine) (Heparin (5000 Units/0.5 ml)) 5,000 unit BID SC Last administered on 02/14/17 08:25; Admin Dose 5,000 UNIT; Start 02/04/17 at 21:00 Hydralazine HCl (Apresoline) 75 mg TID PO Last administered on 02/14/17 12:57 ; Admin Dose 75 MG; Start 02/04/17 at 21:00 Lactulose (Enulose) 20 gm DAILY PRN PO CONSTIPATION; Start 02/04/17 at 21:00 Lidocaine (Lidoderm) 1 patch QPM TD Last administered on 02/13/17 20:35; Admin Dose 1 PATCH; Start 02/04/17 at 21:00 Lubiprostone (Amitiza) 24 mcg BID PO Last administered on 02/14/17 08:23; Admin Dose 24 MCG; Start 02/04/17 at 21:30 Metoclopramide HCl (Reglan) 5 mg BID PO Last administered on 02/14/17 08:22; Admin Dose 5 MG; Start 02/04/17 at 21:00 Metoprolol Tartrate (Lopressor) 100 mg BID PO Last administered on 02/14/17 08 :21; Admin Dose 100 MG; Start 02/04/17 at 21:00 Morphine Sulfate (morphine) 2 mg Q3H PRN IV PAIN LEVEL 6-10 Last administered on 02/12/17 14:57; Admin Dose 2 MG; Start 02/04/17 at 21:00 Naloxone HCl (Narcan) 0.2 mg Q2M PRN IV RR 8 BREATHS/MIN OR LESS; Start at 21:00 Nitroglycerin (Nitroglycerin 2% Oint) 1 inch Q6 TD Last administered on 06:20; Admin Dose 1 INCH; Start 02/05/17 at 00:00 Ondansetron HCl (Zofran Inj) 4 mg Q6H PRN IV NAUSEA AND/OR VOMITING; Start at 21:00 Pantoprazole (Protonix Tab) 40 mg DAILY@06 PO Last administered on 02/14/17 06 :20; Admin Dose 40 MG; Start 02/05/17 at 06:00 Polyethylene Glycol (Miralax) 17 gm BID PO Last administered on 02/12/17 08:54 ; Admin Dose 17 GM; Start 02/04/17 at 21:00 IV Flush (NS 10 ml) 10 ml PRN PRN IV IV PROTOCOL Last administered on 00:41; Admin Dose 10 ML; Start 02/04/17 at 21:30 Senna (Senokot) 1 tab DAILY PO Last administered on 02/12/17 08:52; Admin Dose 1 TAB; Start 02/05/17 at 09:00 Sertraline HCl (Zoloft) 50 mg DAILY PO Last administered on 02/14/17 08:22; Admin Dose 50 MG; Start 02/05/17 at 09:00 Sodium Biphosphate/ Sodium Phosphate (Fleet Enema) 133 ml DAILY PRN [place] CONSTIPATION; Start 02/04/17 at 21:30 Tolterodine Tartrate (Detrol) 2 mg BID PO Last administered on 02/14/17 08:21 ; Admin Dose 2 MG; Start 02/04/17 at 21:15 Zolpidem Tartrate (Ambien) 5 mg HS PRN PO INSOMNIA Last administered on 20:44; Admin Dose 5 MG; Start 02/04/17 at 21:30 Miscellaneous Information 1 ea NOTE XX ; Start 02/04/17 at 21:30 Glucose (Glutose) 15 gm Q15M PRN PO DECREASED GLUCOSE; Start 02/04/17 at 21:30 Glucose (Glutose) 22.5 gm Q15M PRN PO DECREASED GLUCOSE Last administered on 15:41; Admin Dose 22.5 GM; Start 02/04/17 at 21:30 Dextrose (D50w Syringe) 25 ml Q15M PRN IV DECREASED GLUCOSE; Start 02/04/17 at 21:30 Dextrose (D50w Syringe) 50 ml Q15M PRN IV DECREASED GLUCOSE; Start 02/04/17 at 21:30 Glucagon (Glucagen) 1 mg Q15M PRN IM DECREASED GLUCOSE; Start 02/04/17 at 21:30 Glucose (Glutose) 15 gm Q15M PRN BUCCAL DECREASED GLUCOSE; Start 02/04/17 at 21 :30 Oxycodone HCl (Roxicodone) 5 mg TID PO Last administered on 02/14/17 12:58; Admin Dose 5 MG; Start 02/12/17 at 13:00 Warfarin Sodium 7.5 mg 7.5 mg DAILY@17 PO Last administered on 02/14/17 17:34 ; Admin Dose 7.5 MG; Start 02/13/17 at 17:00 Ceftriaxone Sodium 50 ml @ 100 mls/hr Q24H IVPB ; Start 02/14/17 at 12:00 Vancomycin HCl/ Sodium Chloride (Vancocin/NS) 250 ml @ 83.333 mls/ hr Q72H IVPB ; Start 02/14/17 at 14:00 Assessment/Plan Chief Complaint/Hosp Course 1. Paroxysmal atrial fibrillation. Currently appears to be remaining in sinus rhythm. 2. History of multiple cerebrovascular accidents (CVA). 3. Renal failure on dialysis. 4. Hypertension. 5. Chronic obstructive pulmonary disease (COPD). 6. History of spinal infection and s/p spinal surgery. 7. Anemia. 8. Dyslipidemia. 9. Diabetes. PLAN: cont coumadin and adjust based on daily INR. We will continue with the current blood pressure medications. Dialysis will be continued as per renal. Physical therapy and rehabilitation. Antibiotic as per Internal Medicine and ID recommendations. Once the INR is therapeutic, aspirin will be discontinued as well. WILL CHECK LABS IN AM Thank you for this referral. I will Continue to follow along with you. TAMERA BAILEY MD [facility] Problems: TAMERA BAILEY MD Feb 14, 2017 18:47
[2017-02-14 20:09] VITALS: BP 143/67; RESP 18
[2017-02-14] MEDS: ATORVASTATIN 80 MG TAB PO SCH (20:50)
[2017-02-14] MEDS: LIDOCAINE 5% PATCH TD SCH (20:52)
[2017-02-14] MEDS: ZOLPIDEM 5 MG TAB PO PRN (20:53)
[2017-02-15] VITALS (7 sets, daily range): BP systolic 127–157; BP diastolic 60–72; PULSE 83; RESP 16–20
[2017-02-15] MEDS: ACCU-CHEK XX SCH (02:00)
[2017-02-15] MEDS: NITROGLYCERIN 2% 1 GM OINT PKT TD SCH ×4 (06:00→23:59)
[2017-02-15] MEDS: PANTOPRAZOLE (EC) 40 MG TAB PO SCH (06:22)
[2017-02-15 07:04] LABS: BASOPHIL # 0.1 10^3/ul (0.0-0.1); BASOPHILS % 0.9 % (0.0-2.0); EOSINOPHILS # 0.6 10^3/ul (0.0-0.5); EOSINOPHILS % 6.6 % (0.0-7.0); HEMATOCRIT 28.2 % (37.0-47.0); HEMOGLOBIN 8.6 g/dl (12.0-16.0); LYMPHOCYTES # 2.6 10^3/ul (0.8-2.9); LYMPHOCYTES % 29.3 % (15.0-51.0); MEAN CORPUSCULAR HGB CONC 30.5 g/dl (32.0-37.0); MEAN CORPUSCULAR VOLUME 98.3 fl (82.0-101.0); MEAN PLATELET VOLUME 8.2 fl (7.4-10.4); MONOCYTE # 0.8 10^3/ul (0.3-0.9); MONOCYTES % 8.9 % (0.0-11.0); NEUTROPHIL # 4.7 10^3/ul (1.6-7.5); NEUTROPHILS % 53.6 % (39.0-77.0); PLATELET COUNT 259 10^3/UL (140-415); RED BLOOD COUNT 2.87 10^6/ul (4.20-5.40); RED CELL DISTRIBUTION WIDTH 15.7 % (11.5-14.5); WHITE BLOOD COUNT 8.7 10^3/ul (4.8-10.8)
[2017-02-15 07:24] LABS: INR 1.52; PROTIME 18.4 Sec (12.2-14.2); PT RATIO 1.4
[2017-02-15 07:30] LABS: ALBUMIN/GLOBULIN RATIO 0.96; CALCIUM 8.6 mg/dl (8.4-10.2); CREATININE 3.6 mg/dl (0.44-1.00); POTASSIUM 4.7 mmol/L (3.5-5.1); TOTAL PROTEIN 6.1 g/dl (6.1-8.1)
[2017-02-15] MEDS: INSULIN ASPART [NOVOLOG] 3 ML PEN SC SCH ×4 (07:35→21:00)
[2017-02-15] MEDS: SEVELAMER 800 MG TAB PO SCH ×3 (08:35→17:40)
[2017-02-15] MEDS: SENNA TAB PO SCH (08:36)
[2017-02-15] MEDS: oxyCODONE 5 MG TAB PO SCH ×3 (08:36→20:54)
[2017-02-15] MEDS: LUBIPROSTONE 24 MCG CAP PO SCH ×2 (08:37→20:50)
[2017-02-15] MEDS: ASPIRIN 81 MG TAB PO SCH (08:37)
[2017-02-15] MEDS: METOCLOPRAMIDE 10 MG TAB PO SCH ×2 (08:37→20:52)
[2017-02-15] MEDS: TOLTERODINE 2 MG TAB PO SCH ×2 (08:43→20:50)
[2017-02-15] MEDS: AMLODIPINE 10 MG TAB PO SCH (08:43)
[2017-02-15] MEDS: METOPROLOL 100 MG TAB PO SCH ×2 (08:44→20:52)
[2017-02-15] MEDS: SERTRALINE 50 MG TAB PO SCH (08:47)
[2017-02-15] MEDS: HEPARIN 5,000 UNIT/0.5 ML VIAL SC SCH ×2 (08:48→20:59)
[2017-02-15] MEDS: POLYETHYLENE GLYCOL 17 GM PACKET PO SCH ×2 (09:00→20:54)
--- NOTE | 2017-02-15 11:54 | CONS ---
Date/Time of Note Date/Time of Note DATE: 02/15/17 TIME: 11:54 Consult Date/Type/Reason Admit Date/Time Feb 04, 2017 at 20:01 Type of Consultation: CARD Objective Vital Signs Date Time Temp Pulse Resp B/P Pulse Ox O2 Delivery O2 Flow Rate FiO2 02/15/17 07:30 98.7 71 20 144/64 97 02/14/17 14:00 Room Air Intake and Output 02/14/17 02/14/17 02/15/17 15:00 23:00 07:00 Intake Total 480 ml 600 ml Output Total 400 ml Balance 480 ml 200 ml INTERDISCIPLINARY TEAM CONFERENCE BOWEL- Cont BLADDER-hemodialysis SKIN- intact OT- DRESSING-sba BATHING-sba TOILETING-sba PT- BED MOBILITY-sba TRANSFERS-sba AMBULATION-sba 150 feet A/P- Interdisciplinary team conference held today. Please see interdisciplinary sheet. Working toward d.c. on 02/17 with post discharge follow up of physical therapy, occupational therapy. Results/Medications Result Diagram: 02/15/17 0644 02/15/17 0643 Results 24 hrs Laboratory Tests Test 02/14/17 12:30 02/14/17 17:15 02/14/17 20:31 02/15/17 06:43 Bedside Glucose 120 131 135 Prothrombin Time 18.4 H Prothrombin Time Ratio 1.4 INR International Normalized Ratio 1.52 Sodium Level 139 Potassium Level 4.7 Chloride Level 106 Carbon Dioxide Level 28 Anion Gap 10 Blood Urea Nitrogen 28 H Creatinine 3.60 H Glucose Level 104 Calcium Level 8.6 Total Bilirubin 0.0 L Direct Bilirubin 0.00 Indirect Bilirubin 0.0 Aspartate Amino Transf (AST/SGOT) 33 Alanine Aminotransferase (ALT/SGPT) 34 Alkaline Phosphatase 181 H Total Protein 6.1 Albumin 3.0 L Globulin 3.10 Albumin/Globulin Ratio 0.96 Test 02/15/17 06:44 02/15/17 07:47 White Blood Count 8.7 Red Blood Count 2.87 L Hemoglobin 8.6 L Hematocrit 28.2 L Mean Corpuscular Volume 98.3 Mean Corpuscular Hemoglobin 30.0 Mean Corpuscular Hemoglobin Concent 30.5 L Red Cell Distribution Width 15.7 H Platelet Count 259 Mean Platelet Volume 8.2 Neutrophils % 53.6 Lymphocytes % 29.3 Monocytes % 8.9 Eosinophils % 6.6 Basophils % 0.9 Nucleated Red Blood Cells % 0.0 Neutrophils # 4.7 Lymphocytes # 2.6 Monocytes # 0.8 Eosinophils # 0.6 H Basophils # 0.1 Nucleated Red Blood Cells # 0.0 Bedside Glucose 88 Medications Current Medications Diagnostic Test (Pha) (Accu-Chek) 1 ea 02 XX ; Start 02/05/17 at 02:00 Amlodipine Besylate (Norvasc) 10 mg DAILY PO Last administered on 02/15/17 08: 43; Admin Dose 10 MG; Start 02/05/17 at 09:00 Acetaminophen/ Hydrocodone Bitart ([place] (10/325)) 1 tab Q4H PRN PO 4-6 PAIN Last administered on 02/14/17 06:30; Admin Dose 1 TAB; Start 02/04/17 at 21:00 Aspirin (Aspirin) 162 mg DAILY PO Last administered on 02/15/17 08:37; Admin Dose 162 MG; Start 02/05/17 at 09:00 Atorvastatin Calcium (Lipitor) 80 mg QHS PO Last administered on 02/14/17 20: 50; Admin Dose 80 MG; Start 02/04/17 at 21:00 Bisacodyl (Dulcolax Supp) 10 mg Q24H PRN [place] CONSTIPATION; Start 02/04/17 at 21: 00 Clonidine (Catapres) 0.1 mg Q6H PRN PO ELEVATED SYSTOLIC BP Last administered on 02/08/17 06:23; Admin Dose 0.1 MG; Start 02/04/17 at 21:00 Docusate Sodium (Colace) 100 mg QHS PRN PO CONSTIPATION Last administered on 08:46; Admin Dose 100 MG; Start 02/04/17 at 21:00 Heparin Sodium (Porcine) (Heparin (5000 Units/0.5 ml)) 5,000 unit BID SC Last administered on 02/15/17 08:48; Admin Dose 5,000 UNIT; Start 02/04/17 at 21:00 Hydralazine HCl (Apresoline) 75 mg TID PO Last administered on 02/15/17 08:42 ; Admin Dose 75 MG; Start 02/04/17 at 21:00 Lactulose (Enulose) 20 gm DAILY PRN PO CONSTIPATION; Start 02/04/17 at 21:00 Lidocaine (Lidoderm) 1 patch QPM TD Last administered on 02/14/17 20:52; Admin Dose 1 PATCH; Start 02/04/17 at 21:00 Lubiprostone (Amitiza) 24 mcg BID PO Last administered on 02/15/17 08:37; Admin Dose 24 MCG; Start 02/04/17 at 21:30 Metoclopramide HCl (Reglan) 5 mg BID PO Last administered on 02/15/17 08:37; Admin Dose 5 MG; Start 02/04/17 at 21:00 Metoprolol Tartrate (Lopressor) 100 mg BID PO Last administered on 02/15/17 08 :44; Admin Dose 100 MG; Start 02/04/17 at 21:00 Morphine Sulfate (morphine) 2 mg Q3H PRN IV PAIN LEVEL 6-10 Last administered on 02/12/17 14:57; Admin Dose 2 MG; Start 02/04/17 at 21:00 Naloxone HCl (Narcan) 0.2 mg Q2M PRN IV RR 8 BREATHS/MIN OR LESS; Start at 21:00 Nitroglycerin (Nitroglycerin 2% Oint) 1 inch Q6 TD Last administered on 23:52; Admin Dose 1 INCH; Start 02/05/17 at 00:00 Ondansetron HCl (Zofran Inj) 4 mg Q6H PRN IV NAUSEA AND/OR VOMITING; Start at 21:00 Pantoprazole (Protonix Tab) 40 mg DAILY@06 PO Last administered on 02/15/17 06 :22; Admin Dose 40 MG; Start 02/05/17 at 06:00 Polyethylene Glycol (Miralax) 17 gm BID PO Last administered on 02/12/17 08:54 ; Admin Dose 17 GM; Start 02/04/17 at 21:00 IV Flush (NS 10 ml) 10 ml PRN PRN IV IV PROTOCOL Last administered on 00:41; Admin Dose 10 ML; Start 02/04/17 at 21:30 Senna (Senokot) 1 tab DAILY PO Last administered on 02/15/17 08:36; Admin Dose 1 TAB; Start 02/05/17 at 09:00 Sertraline HCl (Zoloft) 50 mg DAILY PO Last administered on 02/15/17 08:47; Admin Dose 50 MG; Start 02/05/17 at 09:00 Sodium Biphosphate/ Sodium Phosphate (Fleet Enema) 133 ml DAILY PRN [place] CONSTIPATION; Start 02/04/17 at 21:30 Tolterodine Tartrate (Detrol) 2 mg BID PO Last administered on 02/15/17 08:43 ; Admin Dose 2 MG; Start 02/04/17 at 21:15 Zolpidem Tartrate (Ambien) 5 mg HS PRN PO INSOMNIA Last administered on 20:53; Admin Dose 5 MG; Start 02/04/17 at 21:30 Miscellaneous Information 1 ea NOTE XX ; Start 02/04/17 at 21:30 Glucose (Glutose) 15 gm Q15M PRN PO DECREASED GLUCOSE; Start 02/04/17 at 21:30 Glucose (Glutose) 22.5 gm Q15M PRN PO DECREASED GLUCOSE Last administered on 15:41; Admin Dose 22.5 GM; Start 02/04/17 at 21:30 Dextrose (D50w Syringe) 25 ml Q15M PRN IV DECREASED GLUCOSE; Start 02/04/17 at 21:30 Dextrose (D50w Syringe) 50 ml Q15M PRN IV DECREASED GLUCOSE; Start 02/04/17 at 21:30 Glucagon (Glucagen) 1 mg Q15M PRN IM DECREASED GLUCOSE; Start 02/04/17 at 21:30 Glucose (Glutose) 15 gm Q15M PRN BUCCAL DECREASED GLUCOSE; Start 02/04/17 at 21 :30 Oxycodone HCl (Roxicodone) 5 mg TID PO Last administered on 02/15/17 08:36; Admin Dose 5 MG; Start 02/12/17 at 13:00 Warfarin Sodium 7.5 mg 7.5 mg DAILY@17 PO Last administered on 02/14/17 17:34 ; Admin Dose 7.5 MG; Start 02/13/17 at 17:00 Ceftriaxone Sodium 50 ml @ 100 mls/hr Q24H IVPB ; Start 02/14/17 at 12:00 Vancomycin HCl/ Sodium Chloride (Vancocin/NS) 250 ml @ 83.333 mls/ hr Q72H IVPB ; Start 02/14/17 at 14:00 ALINE CORREIA MD Feb 15, 2017 11:54
--- NOTE | 2017-02-15 13:05 | CONS ---
Date/Time of Note Date/Time of Note DATE: 02/15/17 TIME: 13:04 Assessment/Plan Assessment/Plan Chief Complaint/Hosp Course SUBJECTIVE DATA: Alert, feels good, no fevers, no n/v/d Klebsiella and E coli susceptible to Levaquin. INDWELLINGS: Perm-A-Cath. ANTIMICROBIALS: Vanco, Rocephin OBJECTIVE DATA: GENERAL: This is obese, well-developed, middle-aged woman who is awake, in no distress. HEENT: Head atraumatic, normocephalic. Sclerae anicteric. Buccal mucosa pink. NECK: Supple. CHEST: Rise symmetrical. Breath sounds diminished at the bases. HEART: S1, S2. ABDOMEN: Soft, bowel sounds present. EXTREMITIES: Without cyanosis. ASSESSMENT: 1. L5-S1 diskitis with radiculopathy, status post surgical intervention on January 22, 2017. 2. Positive urine cx==> no evidence of active infection. 3. End-stage renal disease, hemodialysis dependent. 4. Diabetes. 5. Anemia. 6. Hypertension. PLAN: Patient remains stable. PICC was dc'd, will change Rocephin to PO Levaquin, continue Vanco post HD, will keep on abx till Mar 05 to complete treatment for discitis DW staff/pt Problems: Consultation Date/Type/Reason Admit Date/Time Feb 04, 2017 at 20:01 Type of Consultation: ID Exam/Review of Systems Vital Signs Vitals Vital Signs Date Time Temp Pulse Resp B/P Pulse Ox O2 Delivery O2 Flow Rate FiO2 02/15/17 07:30 98.7 71 20 144/64 97 02/14/17 14:00 Room Air Intake and Output 02/14/17 02/14/17 02/15/17 15:00 23:00 07:00 Intake Total 480 ml 600 ml Output Total 400 ml Balance 480 ml 200 ml Results Result Diagram: 02/15/17 0644 02/15/17 0643 Results 24 hrs Laboratory Tests Test 02/14/17 17:15 02/14/17 20:31 02/15/17 06:43 02/15/17 06:44 Bedside Glucose 131 135 Prothrombin Time 18.4 H Prothrombin Time Ratio 1.4 INR International Normalized Ratio 1.52 Sodium Level 139 Potassium Level 4.7 Chloride Level 106 Carbon Dioxide Level 28 Anion Gap 10 Blood Urea Nitrogen 28 H Creatinine 3.60 H Glucose Level 104 Calcium Level 8.6 Total Bilirubin 0.0 L Direct Bilirubin 0.00 Indirect Bilirubin 0.0 Aspartate Amino Transf (AST/SGOT) 33 Alanine Aminotransferase (ALT/SGPT) 34 Alkaline Phosphatase 181 H Total Protein 6.1 Albumin 3.0 L Globulin 3.10 Albumin/Globulin Ratio 0.96 White Blood Count 8.7 Red Blood Count 2.87 L Hemoglobin 8.6 L Hematocrit 28.2 L Mean Corpuscular Volume 98.3 Mean Corpuscular Hemoglobin 30.0 Mean Corpuscular Hemoglobin Concent 30.5 L Red Cell Distribution Width 15.7 H Platelet Count 259 Mean Platelet Volume 8.2 Neutrophils % 53.6 Lymphocytes % 29.3 Monocytes % 8.9 Eosinophils % 6.6 Basophils % 0.9 Nucleated Red Blood Cells % 0.0 Neutrophils # 4.7 Lymphocytes # 2.6 Monocytes # 0.8 Eosinophils # 0.6 H Basophils # 0.1 Nucleated Red Blood Cells # 0.0 Test 02/15/17 07:47 02/15/17 12:22 Bedside Glucose 88 95 Medications Medications Current Medications Diagnostic Test (Pha) (Accu-Chek) 1 ea 02 XX ; Start 02/05/17 at 02:00 Amlodipine Besylate (Norvasc) 10 mg DAILY PO Last administered on 02/15/17 08: 43; Admin Dose 10 MG; Start 02/05/17 at 09:00 Acetaminophen/ Hydrocodone Bitart ([place] (10/325)) 1 tab Q4H PRN PO 4-6 PAIN Last administered on 02/14/17 06:30; Admin Dose 1 TAB; Start 02/04/17 at 21:00 Aspirin (Aspirin) 162 mg DAILY PO Last administered on 02/15/17 08:37; Admin Dose 162 MG; Start 02/05/17 at 09:00 Atorvastatin Calcium (Lipitor) 80 mg QHS PO Last administered on 02/14/17 20: 50; Admin Dose 80 MG; Start 02/04/17 at 21:00 Bisacodyl (Dulcolax Supp) 10 mg Q24H PRN [place] CONSTIPATION; Start 02/04/17 at 21: 00 Clonidine (Catapres) 0.1 mg Q6H PRN PO ELEVATED SYSTOLIC BP Last administered on 02/08/17 06:23; Admin Dose 0.1 MG; Start 02/04/17 at 21:00 Docusate Sodium (Colace) 100 mg QHS PRN PO CONSTIPATION Last administered on 08:46; Admin Dose 100 MG; Start 02/04/17 at 21:00 Heparin Sodium (Porcine) (Heparin (5000 Units/0.5 ml)) 5,000 unit BID SC Last administered on 02/15/17 08:48; Admin Dose 5,000 UNIT; Start 02/04/17 at 21:00 Hydralazine HCl (Apresoline) 75 mg TID PO Last administered on 02/15/17 08:42 ; Admin Dose 75 MG; Start 02/04/17 at 21:00 Lactulose (Enulose) 20 gm DAILY PRN PO CONSTIPATION; Start 02/04/17 at 21:00 Lidocaine (Lidoderm) 1 patch QPM TD Last administered on 02/14/17 20:52; Admin Dose 1 PATCH; Start 02/04/17 at 21:00 Lubiprostone (Amitiza) 24 mcg BID PO Last administered on 02/15/17 08:37; Admin Dose 24 MCG; Start 02/04/17 at 21:30 Metoclopramide HCl (Reglan) 5 mg BID PO Last administered on 02/15/17 08:37; Admin Dose 5 MG; Start 02/04/17 at 21:00 Metoprolol Tartrate (Lopressor) 100 mg BID PO Last administered on 02/15/17 08 :44; Admin Dose 100 MG; Start 02/04/17 at 21:00 Morphine Sulfate (morphine) 2 mg Q3H PRN IV PAIN LEVEL 6-10 Last administered on 02/12/17 14:57; Admin Dose 2 MG; Start 02/04/17 at 21:00 Naloxone HCl (Narcan) 0.2 mg Q2M PRN IV RR 8 BREATHS/MIN OR LESS; Start at 21:00 Nitroglycerin (Nitroglycerin 2% Oint) 1 inch Q6 TD Last administered on 23:52; Admin Dose 1 INCH; Start 02/05/17 at 00:00 Ondansetron HCl (Zofran Inj) 4 mg Q6H PRN IV NAUSEA AND/OR VOMITING; Start at 21:00 Pantoprazole (Protonix Tab) 40 mg DAILY@06 PO Last administered on 02/15/17 06 :22; Admin Dose 40 MG; Start 02/05/17 at 06:00 Polyethylene Glycol (Miralax) 17 gm BID PO Last administered on 02/12/17 08:54 ; Admin Dose 17 GM; Start 02/04/17 at 21:00 IV Flush (NS 10 ml) 10 ml PRN PRN IV IV PROTOCOL Last administered on 00:41; Admin Dose 10 ML; Start 02/04/17 at 21:30 Senna (Senokot) 1 tab DAILY PO Last administered on 02/15/17 08:36; Admin Dose 1 TAB; Start 02/05/17 at 09:00 Sertraline HCl (Zoloft) 50 mg DAILY PO Last administered on 02/15/17 08:47; Admin Dose 50 MG; Start 02/05/17 at 09:00 Sodium Biphosphate/ Sodium Phosphate (Fleet Enema) 133 ml DAILY PRN [place] CONSTIPATION; Start 02/04/17 at 21:30 Tolterodine Tartrate (Detrol) 2 mg BID PO Last administered on 02/15/17 08:43 ; Admin Dose 2 MG; Start 02/04/17 at 21:15 Zolpidem Tartrate (Ambien) 5 mg HS PRN PO INSOMNIA Last administered on 20:53; Admin Dose 5 MG; Start 02/04/17 at 21:30 Miscellaneous Information 1 ea NOTE XX ; Start 02/04/17 at 21:30 Glucose (Glutose) 15 gm Q15M PRN PO DECREASED GLUCOSE; Start 02/04/17 at 21:30 Glucose (Glutose) 22.5 gm Q15M PRN PO DECREASED GLUCOSE Last administered on 15:41; Admin Dose 22.5 GM; Start 02/04/17 at 21:30 Dextrose (D50w Syringe) 25 ml Q15M PRN IV DECREASED GLUCOSE; Start 02/04/17 at 21:30 Dextrose (D50w Syringe) 50 ml Q15M PRN IV DECREASED GLUCOSE; Start 02/04/17 at 21:30 Glucagon (Glucagen) 1 mg Q15M PRN IM DECREASED GLUCOSE; Start 02/04/17 at 21:30 Glucose (Glutose) 15 gm Q15M PRN BUCCAL DECREASED GLUCOSE; Start 02/04/17 at 21 :30 Oxycodone HCl (Roxicodone) 5 mg TID PO Last administered on 02/15/17 08:36; Admin Dose 5 MG; Start 02/12/17 at 13:00 Warfarin Sodium 7.5 mg 7.5 mg DAILY@17 PO Last administered on 02/14/17 17:34 ; Admin Dose 7.5 MG; Start 02/13/17 at 17:00 Ceftriaxone Sodium 50 ml @ 100 mls/hr Q24H IVPB ; Start 02/14/17 at 12:00 Vancomycin HCl/ Sodium Chloride (Vancocin/NS) 250 ml @ 83.333 mls/ hr Q72H IVPB ; Start 02/14/17 at 14:00 ADALID LEO NP Feb 15, 2017 13:05
[2017-02-15 14:03] LABS: HAAIG REFLEX REFLEX FILED
--- NOTE | 2017-02-15 15:00 | RADRPT ---
PROCEDURE: XR Chest. CLINICAL INDICATION: Cough. TECHNIQUE: Two views. Frontal and lateral. COMPARISON: 01/12/2017. FINDINGS: There is a tunneled right internal jugular vein dialysis catheter with the tip in the lower superior vena cava. The lungs are clear. The heart size is normal. There is no pleural effusion or pneumothorax. There has been prior spine surgery with pedicle screws and connecting rods. IMPRESSION: 1. Dialysis catheter in satisfactory position. 2. Prior spine surgery. 3. Otherwise unremarkable chest radiographs. RPTAT: QQ .Nima Yang MD, MD Date Time Electronically viewed and signed by .Nima Yang MD, MD on 02/15/2017 14:59 .R/
[2017-02-15 15:07] LABS: HEPATITIS B CORE ANTIBODY NEGATIVE (NEGATIVE)
--- NOTE | 2017-02-15 15:47 | PN ---
Date/Time of Note Date/Time of Note DATE: 02/15/17 TIME: 15:47 Assessment/Plan VTE Prophylaxis VTE Prophylaxis Intervention: other Lines/Catheters IV Catheter Type (from Nrs): Mid Line Central line still needed: Yes Urinary Cath still in place: No Assessment/Plan Chief Complaint/Hosp Course SUBJECTIVE: The patient is stable. No events overnight. No fevers, chills, nausea, vomiting. OBJECTIVE: HEENT: Head is normocephalic. NECK: Supple. HEART: Regular rate. LUNGS: Show diminished sounds at base. ABDOMEN: Soft, nontender to palpation without rebound or guarding. EXTREMITIES: Negative for clubbing, cyanosis, edema. DERMATOLOGIC: No rashes. MUSCULOSKELETAL: No joint effusions. NEUROLOGIC: No change in exam. ASSESSMENT AND PLAN: 1. Diskitis L5-S1 radiculopathy. The patient is status post transforaminal lumbar interbody fusion. Patient is currently stable. Continue antibiotic therapy until 03/05 2. Chronic back pain, improving. Continue current pain regimen. 3. End-stage renal disease. Plan for dialysis today 4. Hypertension. Continue current blood pressure regimen. 5. Atrial fibrillation. The patient is on Coumadin. INR is not at goal. 6. Status post transient ischemic attack. 7. Anemia. Monitor hemoglobin and hematocrit levels. 8. Mineral bone disorder, monitor calcium and phosphorus levels. 9. Diabetes. Continue Accu-Cheks, insulin sliding scale. Problems: Exam/Review of Systems Vital Signs Vitals Vital Signs Date Time Temp Pulse Resp B/P Pulse Ox O2 Delivery O2 Flow Rate FiO2 02/15/17 07:30 98.7 71 20 144/64 97 02/14/17 14:00 Room Air Intake and Output 02/14/17 02/14/17 02/15/17 15:00 23:00 07:00 Intake Total 480 ml 600 ml Output Total 400 ml Balance 480 ml 200 ml Results Result Diagram: 02/15/17 0644 02/15/17 0643 Results 24 hrs Laboratory Tests Test 02/14/17 17:15 02/14/17 20:31 02/15/17 06:43 02/15/17 06:44 Bedside Glucose 131 135 Prothrombin Time 18.4 H Prothrombin Time Ratio 1.4 INR International Normalized Ratio 1.52 Sodium Level 139 Potassium Level 4.7 Chloride Level 106 Carbon Dioxide Level 28 Anion Gap 10 Blood Urea Nitrogen 28 H Creatinine 3.60 H Glucose Level 104 Calcium Level 8.6 Total Bilirubin 0.0 L Direct Bilirubin 0.00 Indirect Bilirubin 0.0 Aspartate Amino Transf (AST/SGOT) 33 Alanine Aminotransferase (ALT/SGPT) 34 Alkaline Phosphatase 181 H Total Protein 6.1 Albumin 3.0 L Globulin 3.10 Albumin/Globulin Ratio 0.96 Hepatitis B Surface Antigen NEGATIVE Hepatitis B Core Total Antibody NEGATIVE Hepatitis C Antibody NEGATIVE White Blood Count 8.7 Red Blood Count 2.87 L Hemoglobin 8.6 L Hematocrit 28.2 L Mean Corpuscular Volume 98.3 Mean Corpuscular Hemoglobin 30.0 Mean Corpuscular Hemoglobin Concent 30.5 L Red Cell Distribution Width 15.7 H Platelet Count 259 Mean Platelet Volume 8.2 Neutrophils % 53.6 Lymphocytes % 29.3 Monocytes % 8.9 Eosinophils % 6.6 Basophils % 0.9 Nucleated Red Blood Cells % 0.0 Neutrophils # 4.7 Lymphocytes # 2.6 Monocytes # 0.8 Eosinophils # 0.6 H Basophils # 0.1 Nucleated Red Blood Cells # 0.0 Test 02/15/17 07:47 02/15/17 12:22 Bedside Glucose 88 95 Medications Medications Current Medications Diagnostic Test (Pha) (Accu-Chek) 1 ea 02 XX ; Start 02/05/17 at 02:00 Amlodipine Besylate (Norvasc) 10 mg DAILY PO Last administered on 02/15/17 08: 43; Admin Dose 10 MG; Start 02/05/17 at 09:00 Acetaminophen/ Hydrocodone Bitart ([place] (10/325)) 1 tab Q4H PRN PO 4-6 PAIN Last administered on 02/14/17 06:30; Admin Dose 1 TAB; Start 02/04/17 at 21:00 Aspirin (Aspirin) 162 mg DAILY PO Last administered on 02/15/17 08:37; Admin Dose 162 MG; Start 02/05/17 at 09:00 Atorvastatin Calcium (Lipitor) 80 mg QHS PO Last administered on 02/14/17 20: 50; Admin Dose 80 MG; Start 02/04/17 at 21:00 Bisacodyl (Dulcolax Supp) 10 mg Q24H PRN [place] CONSTIPATION; Start 02/04/17 at 21: 00 Clonidine (Catapres) 0.1 mg Q6H PRN PO ELEVATED SYSTOLIC BP Last administered on 02/08/17 06:23; Admin Dose 0.1 MG; Start 02/04/17 at 21:00 Docusate Sodium (Colace) 100 mg QHS PRN PO CONSTIPATION Last administered on 08:46; Admin Dose 100 MG; Start 02/04/17 at 21:00 Heparin Sodium (Porcine) (Heparin (5000 Units/0.5 ml)) 5,000 unit BID SC Last administered on 02/15/17 08:48; Admin Dose 5,000 UNIT; Start 02/04/17 at 21:00 Hydralazine HCl (Apresoline) 75 mg TID PO Last administered on 02/15/17 13:25 ; Admin Dose 75 MG; Start 02/04/17 at 21:00 Lactulose (Enulose) 20 gm DAILY PRN PO CONSTIPATION; Start 02/04/17 at 21:00 Lidocaine (Lidoderm) 1 patch QPM TD Last administered on 02/14/17 20:52; Admin Dose 1 PATCH; Start 02/04/17 at 21:00 Lubiprostone (Amitiza) 24 mcg BID PO Last administered on 02/15/17 08:37; Admin Dose 24 MCG; Start 02/04/17 at 21:30 Metoclopramide HCl (Reglan) 5 mg BID PO Last administered on 02/15/17 08:37; Admin Dose 5 MG; Start 02/04/17 at 21:00 Metoprolol Tartrate (Lopressor) 100 mg BID PO Last administered on 02/15/17 08 :44; Admin Dose 100 MG; Start 02/04/17 at 21:00 Morphine Sulfate (morphine) 2 mg Q3H PRN IV PAIN LEVEL 6-10 Last administered on 02/12/17 14:57; Admin Dose 2 MG; Start 02/04/17 at 21:00 Naloxone HCl (Narcan) 0.2 mg Q2M PRN IV RR 8 BREATHS/MIN OR LESS; Start at 21:00 Nitroglycerin (Nitroglycerin 2% Oint) 1 inch Q6 TD Last administered on 13:25; Admin Dose 1 INCH; Start 02/05/17 at 00:00 Ondansetron HCl (Zofran Inj) 4 mg Q6H PRN IV NAUSEA AND/OR VOMITING; Start at 21:00 Pantoprazole (Protonix Tab) 40 mg DAILY@06 PO Last administered on 02/15/17 06 :22; Admin Dose 40 MG; Start 02/05/17 at 06:00 Polyethylene Glycol (Miralax) 17 gm BID PO Last administered on 02/12/17 08:54 ; Admin Dose 17 GM; Start 02/04/17 at 21:00 IV Flush (NS 10 ml) 10 ml PRN PRN IV IV PROTOCOL Last administered on 00:41; Admin Dose 10 ML; Start 02/04/17 at 21:30 Senna (Senokot) 1 tab DAILY PO Last administered on 02/15/17 08:36; Admin Dose 1 TAB; Start 02/05/17 at 09:00 Sertraline HCl (Zoloft) 50 mg DAILY PO Last administered on 02/15/17 08:47; Admin Dose 50 MG; Start 02/05/17 at 09:00 Sodium Biphosphate/ Sodium Phosphate (Fleet Enema) 133 ml DAILY PRN [place] CONSTIPATION; Start 02/04/17 at 21:30 Tolterodine Tartrate (Detrol) 2 mg BID PO Last administered on 02/15/17 08:43 ; Admin Dose 2 MG; Start 02/04/17 at 21:15 Zolpidem Tartrate (Ambien) 5 mg HS PRN PO INSOMNIA Last administered on 20:53; Admin Dose 5 MG; Start 02/04/17 at 21:30 Miscellaneous Information 1 ea NOTE XX ; Start 02/04/17 at 21:30 Glucose (Glutose) 15 gm Q15M PRN PO DECREASED GLUCOSE; Start 02/04/17 at 21:30 Glucose (Glutose) 22.5 gm Q15M PRN PO DECREASED GLUCOSE Last administered on 15:41; Admin Dose 22.5 GM; Start 02/04/17 at 21:30 Dextrose (D50w Syringe) 25 ml Q15M PRN IV DECREASED GLUCOSE; Start 02/04/17 at 21:30 Dextrose (D50w Syringe) 50 ml Q15M PRN IV DECREASED GLUCOSE; Start 02/04/17 at 21:30 Glucagon (Glucagen) 1 mg Q15M PRN IM DECREASED GLUCOSE; Start 02/04/17 at 21:30 Glucose (Glutose) 15 gm Q15M PRN BUCCAL DECREASED GLUCOSE; Start 02/04/17 at 21 :30 Oxycodone HCl (Roxicodone) 5 mg TID PO Last administered on 02/15/17 13:19; Admin Dose 5 MG; Start 02/12/17 at 13:00 Warfarin Sodium (Coumadin) 7.5 mg DAILY@17 PO Last administered on 02/14/17 17 :34; Admin Dose 7.5 MG; Start 02/13/17 at 17:00 Levofloxacin (Levaquin) 250 mg Q48H PO ; Start 02/15/17 at 13:30 CHANDA ROJAS DO Feb 15, 2017 15:47
[2017-02-15] MEDS: WARFARIN 7.5 MG TAB PO SCH (17:36)
[2017-02-15] MEDS: LEVOFLOXACIN 250 MG TAB PO SCH (17:36)
--- NOTE | 2017-02-15 18:20 | CONS ---
Date/Time of Note Date/Time of Note DATE: 02/15/17 TIME: 18:20 Consult Date/Type/Reason Admit Date/Time Feb 04, 2017 at 20:01 Type of Consultation: CARD Subjective CARDIOLOGY FOLLOW UP NOTE Discussed with staff she denies any chest pain or pressure or palpitation to me. she denies back pain and states she is able to walk better now. She states she is still working with PT no bleeding objective: General: no acute distress HEENT: NC/AT. pupils are equal. round. NECK: NO JVD. no stridor. CV: RRR. systolic murmur; no gallop or rubs. PULM: no wheezing or rhonchi. GI: SOFT, NT, ND, no rebound or guarding Extremity: trace B/L LE edema. no clubbing. neuro: awake and alert, Psych: calm and pleasant rectal: deferred Derm: multiple tattoos. Objective Vital Signs Date Time Temp Pulse Resp B/P Pulse Ox O2 Delivery O2 Flow Rate FiO2 02/15/17 14:00 97.9 80 18 155/70 98 02/14/17 14:00 Room Air Intake and Output 02/14/17 02/14/17 02/15/17 15:00 23:00 07:00 Intake Total 480 ml 600 ml Output Total 400 ml Balance 480 ml 200 ml Results/Medications Result Diagram: 02/15/17 0644 02/15/17 0643 Results 24 hrs Laboratory Tests Test 02/14/17 20:31 02/15/17 06:43 02/15/17 06:44 02/15/17 07:47 Bedside Glucose 135 88 Prothrombin Time 18.4 H Prothrombin Time Ratio 1.4 INR International Normalized Ratio 1.52 Sodium Level 139 Potassium Level 4.7 Chloride Level 106 Carbon Dioxide Level 28 Anion Gap 10 Blood Urea Nitrogen 28 H Creatinine 3.60 H Glucose Level 104 Calcium Level 8.6 Total Bilirubin 0.0 L Direct Bilirubin 0.00 Indirect Bilirubin 0.0 Aspartate Amino Transf (AST/SGOT) 33 Alanine Aminotransferase (ALT/SGPT) 34 Alkaline Phosphatase 181 H Total Protein 6.1 Albumin 3.0 L Globulin 3.10 Albumin/Globulin Ratio 0.96 Hepatitis B Surface Antigen NEGATIVE Hepatitis B Core Total Antibody NEGATIVE Hepatitis C Antibody NEGATIVE White Blood Count 8.7 Red Blood Count 2.87 L Hemoglobin 8.6 L Hematocrit 28.2 L Mean Corpuscular Volume 98.3 Mean Corpuscular Hemoglobin 30.0 Mean Corpuscular Hemoglobin Concent 30.5 L Red Cell Distribution Width 15.7 H Platelet Count 259 Mean Platelet Volume 8.2 Neutrophils % 53.6 Lymphocytes % 29.3 Monocytes % 8.9 Eosinophils % 6.6 Basophils % 0.9 Nucleated Red Blood Cells % 0.0 Neutrophils # 4.7 Lymphocytes # 2.6 Monocytes # 0.8 Eosinophils # 0.6 H Basophils # 0.1 Nucleated Red Blood Cells # 0.0 Test 02/15/17 12:22 02/15/17 17:34 Bedside Glucose 95 127 Medications Current Medications Diagnostic Test (Pha) (Accu-Chek) 1 ea 02 XX ; Start 02/05/17 at 02:00 Amlodipine Besylate (Norvasc) 10 mg DAILY PO Last administered on 02/15/17 08: 43; Admin Dose 10 MG; Start 02/05/17 at 09:00 Acetaminophen/ Hydrocodone Bitart ([place] (10/325)) 1 tab Q4H PRN PO 4-6 PAIN Last administered on 02/14/17 06:30; Admin Dose 1 TAB; Start 02/04/17 at 21:00 Aspirin (Aspirin) 162 mg DAILY PO Last administered on 02/15/17 08:37; Admin Dose 162 MG; Start 02/05/17 at 09:00 Atorvastatin Calcium (Lipitor) 80 mg QHS PO Last administered on 02/14/17 20: 50; Admin Dose 80 MG; Start 02/04/17 at 21:00 Bisacodyl (Dulcolax Supp) 10 mg Q24H PRN [place] CONSTIPATION; Start 02/04/17 at 21: 00 Clonidine (Catapres) 0.1 mg Q6H PRN PO ELEVATED SYSTOLIC BP Last administered on 02/08/17 06:23; Admin Dose 0.1 MG; Start 02/04/17 at 21:00 Docusate Sodium (Colace) 100 mg QHS PRN PO CONSTIPATION Last administered on 08:46; Admin Dose 100 MG; Start 02/04/17 at 21:00 Heparin Sodium (Porcine) (Heparin (5000 Units/0.5 ml)) 5,000 unit BID SC Last administered on 02/15/17 08:48; Admin Dose 5,000 UNIT; Start 02/04/17 at 21:00 Hydralazine HCl (Apresoline) 75 mg TID PO Last administered on 02/15/17 13:25 ; Admin Dose 75 MG; Start 02/04/17 at 21:00 Lactulose (Enulose) 20 gm DAILY PRN PO CONSTIPATION; Start 02/04/17 at 21:00 Lidocaine (Lidoderm) 1 patch QPM TD Last administered on 02/14/17 20:52; Admin Dose 1 PATCH; Start 02/04/17 at 21:00 Lubiprostone (Amitiza) 24 mcg BID PO Last administered on 02/15/17 08:37; Admin Dose 24 MCG; Start 02/04/17 at 21:30 Metoclopramide HCl (Reglan) 5 mg BID PO Last administered on 02/15/17 08:37; Admin Dose 5 MG; Start 02/04/17 at 21:00 Metoprolol Tartrate (Lopressor) 100 mg BID PO Last administered on 02/15/17 08 :44; Admin Dose 100 MG; Start 02/04/17 at 21:00 Morphine Sulfate (morphine) 2 mg Q3H PRN IV PAIN LEVEL 6-10 Last administered on 02/12/17 14:57; Admin Dose 2 MG; Start 02/04/17 at 21:00 Naloxone HCl (Narcan) 0.2 mg Q2M PRN IV RR 8 BREATHS/MIN OR LESS; Start at 21:00 Nitroglycerin (Nitroglycerin 2% Oint) 1 inch Q6 TD Last administered on 17:40; Admin Dose 1 INCH; Start 02/05/17 at 00:00 Ondansetron HCl (Zofran Inj) 4 mg Q6H PRN IV NAUSEA AND/OR VOMITING; Start at 21:00 Pantoprazole (Protonix Tab) 40 mg DAILY@06 PO Last administered on 02/15/17 06 :22; Admin Dose 40 MG; Start 02/05/17 at 06:00 Polyethylene Glycol (Miralax) 17 gm BID PO Last administered on 02/12/17 08:54 ; Admin Dose 17 GM; Start 02/04/17 at 21:00 IV Flush (NS 10 ml) 10 ml PRN PRN IV IV PROTOCOL Last administered on 00:41; Admin Dose 10 ML; Start 02/04/17 at 21:30 Senna (Senokot) 1 tab DAILY PO Last administered on 02/15/17 08:36; Admin Dose 1 TAB; Start 02/05/17 at 09:00 Sertraline HCl (Zoloft) 50 mg DAILY PO Last administered on 02/15/17 08:47; Admin Dose 50 MG; Start 02/05/17 at 09:00 Sodium Biphosphate/ Sodium Phosphate (Fleet Enema) 133 ml DAILY PRN OR CONSTIPATION; Start 02/04/17 at 21:30 Tolterodine Tartrate (Detrol) 2 mg BID PO Last administered on 02/15/17 08:43 ; Admin Dose 2 MG; Start 02/04/17 at 21:15 Zolpidem Tartrate (Ambien) 5 mg HS PRN PO INSOMNIA Last administered on 20:53; Admin Dose 5 MG; Start 02/04/17 at 21:30 Miscellaneous Information 1 ea NOTE XX ; Start 02/04/17 at 21:30 Glucose (Glutose) 15 gm Q15M PRN PO DECREASED GLUCOSE; Start 02/04/17 at 21:30 Glucose (Glutose) 22.5 gm Q15M PRN PO DECREASED GLUCOSE Last administered on 15:41; Admin Dose 22.5 GM; Start 02/04/17 at 21:30 Dextrose (D50w Syringe) 25 ml Q15M PRN IV DECREASED GLUCOSE; Start 02/04/17 at 21:30 Dextrose (D50w Syringe) 50 ml Q15M PRN IV DECREASED GLUCOSE; Start 02/04/17 at 21:30 Glucagon (Glucagen) 1 mg Q15M PRN IM DECREASED GLUCOSE; Start 02/04/17 at 21:30 Glucose (Glutose) 15 gm Q15M PRN BUCCAL DECREASED GLUCOSE; Start 02/04/17 at 21 :30 Oxycodone HCl (Roxicodone) 5 mg TID PO Last administered on 02/15/17 13:19; Admin Dose 5 MG; Start 02/12/17 at 13:00 Warfarin Sodium (Coumadin) 7.5 mg DAILY@17 PO Last administered on 02/15/17 17 :36; Admin Dose 7.5 MG; Start 02/13/17 at 17:00 Levofloxacin (Levaquin) 250 mg Q48H PO Last administered on 02/15/17t 17:36; Admin Dose 250 MG; Start 02/15/17 at 13:30 Assessment/Plan Chief Complaint/Hosp Course 1. Paroxysmal atrial fibrillation. Currently appears to be remaining in sinus rhythm. 2. History of multiple cerebrovascular accidents (CVA). 3. Renal failure on dialysis. 4. Hypertension. 5. Chronic obstructive pulmonary disease (COPD). 6. History of spinal infection and s/p spinal surgery. 7. Anemia. 8. Dyslipidemia. 9. Diabetes. PLAN: cont coumadin and adjust based on daily INR. We will continue with the current blood pressure medications. Dialysis will be continued as per renal. Physical therapy and rehabilitation. Antibiotic as per Internal Medicine and ID recommendations. Once the INR is therapeutic, aspirin will be discontinued as well. Thank you for this referral. I will Continue to follow along with you. TAMERA BAILEY MD [facility] Problems: TAMERA BAILEY MD Feb 15, 2017 18:20
[2017-02-15] MEDS: ATORVASTATIN 80 MG TAB PO SCH (20:51)
[2017-02-15] MEDS: LIDOCAINE 5% PATCH TD SCH (20:55)
[2017-02-15] MEDS: ZOLPIDEM 5 MG TAB PO PRN (21:40)
[2017-02-16] VITALS (11 sets, daily range): BP systolic 132–175; BP diastolic 59–88; PULSE 70–81; RESP 16–20
[2017-02-16] MEDS: ACCU-CHEK XX SCH (02:00)
[2017-02-16] MEDS: NITROGLYCERIN 2% 1 GM OINT PKT TD SCH ×3 (06:17→17:35)
[2017-02-16] MEDS: PANTOPRAZOLE (EC) 40 MG TAB PO SCH ×2 (06:17→08:28)
[2017-02-16] MEDS: INSULIN ASPART [NOVOLOG] 3 ML PEN SC SCH ×4 (07:35→20:36)
[2017-02-16] MEDS: SEVELAMER 800 MG TAB PO SCH ×3 (08:26→17:34)
[2017-02-16] MEDS: METOPROLOL 100 MG TAB PO SCH ×2 (08:26→20:27)
[2017-02-16] MEDS: METOCLOPRAMIDE 10 MG TAB PO SCH ×2 (08:27→20:27)
[2017-02-16] MEDS: TOLTERODINE 2 MG TAB PO SCH ×2 (08:27→20:26)
[2017-02-16] MEDS: oxyCODONE 5 MG TAB PO SCH ×3 (08:28→20:28)
[2017-02-16] MEDS: ASPIRIN 81 MG TAB PO SCH (08:28)
[2017-02-16] MEDS: SERTRALINE 50 MG TAB PO SCH (08:28)
[2017-02-16] MEDS: HEPARIN 5,000 UNIT/0.5 ML VIAL SC SCH ×2 (08:29→20:35)
[2017-02-16] MEDS: AMLODIPINE 10 MG TAB PO SCH (08:29)
[2017-02-16] MEDS: SENNA TAB PO SCH (08:45)
[2017-02-16] MEDS: LUBIPROSTONE 24 MCG CAP PO SCH ×2 (08:45→20:27)
[2017-02-16] MEDS: POLYETHYLENE GLYCOL 17 GM PACKET PO SCH ×2 (08:45→20:35)
--- NOTE | 2017-02-16 09:54 | CONS ---
Date/Time of Note Date/Time of Note DATE: 02/16/17 TIME: 09:53 Consult Date/Type/Reason Admit Date/Time Feb 04, 2017 at 20:01 Type of Consultation: CARD Subjective Doing very well Objective sba ambulation transfers self care Vital Signs Date Time Temp Pulse Resp B/P Pulse Ox O2 Delivery O2 Flow Rate FiO2 02/16/17 06:17 74 16 148/67 02/16/17 02:02 97.8 97 02/14/17 14:00 Room Air Intake and Output 02/15/17 02/15/17 02/16/17 15:00 23:00 07:00 Intake Total 500 ml 300 ml Balance 500 ml 300 ml Results/Medications Result Diagram: 02/15/17 0644 02/15/17 0643 Results 24 hrs Laboratory Tests Test 02/15/17 12:22 02/15/17 17:34 02/15/17 20:47 02/16/17 07:46 Bedside Glucose 95 127 115 77 Medications Current Medications Diagnostic Test (Pha) (Accu-Chek) 1 ea 02 XX ; Start 02/05/17 at 02:00 Amlodipine Besylate (Norvasc) 10 mg DAILY PO Last administered on 02/16/17 08 :29; Admin Dose 10 MG; Start 02/05/17 at 09:00 Acetaminophen/ Hydrocodone Bitart ([place] (10/325)) 1 tab Q4H PRN PO 4-6 PAIN Last administered on 02/14/17 06:30; Admin Dose 1 TAB; Start 02/04/17 at 21:00 Aspirin (Aspirin) 162 mg DAILY PO Last administered on 02/16/17 08:28; Admin Dose 162 MG; Start 02/05/17 at 09:00 Atorvastatin Calcium (Lipitor) 80 mg QHS PO Last administered on 02/15/17 20: 51; Admin Dose 80 MG; Start 02/04/17 at 21:00 Bisacodyl (Dulcolax Supp) 10 mg Q24H PRN [place] CONSTIPATION; Start 02/04/17 at 21: 00 Clonidine (Catapres) 0.1 mg Q6H PRN PO ELEVATED SYSTOLIC BP Last administered on 02/08/17 06:23; Admin Dose 0.1 MG; Start 02/04/17 at 21:00 Docusate Sodium (Colace) 100 mg QHS PRN PO CONSTIPATION Last administered on 08:46; Admin Dose 100 MG; Start 02/04/17 at 21:00 Heparin Sodium (Porcine) (Heparin (5000 Units/0.5 ml)) 5,000 unit BID SC Last administered on 02/16/17 08:29; Admin Dose 5,000 UNIT; Start 02/04/17 at 21:00 Hydralazine HCl (Apresoline) 75 mg TID PO Last administered on 02/16/17 08:29 ; Admin Dose 75 MG; Start 02/04/17 at 21:00 Lactulose (Enulose) 20 gm DAILY PRN PO CONSTIPATION; Start 02/04/17 at 21:00 Lidocaine (Lidoderm) 1 patch QPM TD Last administered on 02/14/17 20:52; Admin Dose 1 PATCH; Start 02/04/17 at 21:00 Lubiprostone (Amitiza) 24 mcg BID PO Last administered on 02/15/17 20:50; Admin Dose 24 MCG; Start 02/04/17 at 21:30 Metoclopramide HCl (Reglan) 5 mg BID PO Last administered on 02/16/17 08:27; Admin Dose 5 MG; Start 02/04/17 at 21:00 Metoprolol Tartrate (Lopressor) 100 mg BID PO Last administered on 02/16/17 08:26; Admin Dose 100 MG; Start 02/04/17 at 21:00 Morphine Sulfate (morphine) 2 mg Q3H PRN IV PAIN LEVEL 6-10 Last administered on 02/12/17 14:57; Admin Dose 2 MG; Start 02/04/17 at 21:00 Naloxone HCl (Narcan) 0.2 mg Q2M PRN IV RR 8 BREATHS/MIN OR LESS; Start at 21:00 Nitroglycerin (Nitroglycerin 2% Oint) 1 inch Q6 TD Last administered on 06:17; Admin Dose 1 INCH; Start 02/05/17 at 00:00 Ondansetron HCl (Zofran Inj) 4 mg Q6H PRN IV NAUSEA AND/OR VOMITING; Start at 21:00 Pantoprazole (Protonix Tab) 40 mg DAILY@06 PO Last administered on 02/16/17 08:28; Admin Dose 40 MG; Start 02/05/17 at 06:00 Polyethylene Glycol (Miralax) 17 gm BID PO Last administered on 02/12/17 08:54 ; Admin Dose 17 GM; Start 02/04/17 at 21:00 IV Flush (NS 10 ml) 10 ml PRN PRN IV IV PROTOCOL Last administered on 00:41; Admin Dose 10 ML; Start 02/04/17 at 21:30 Senna (Senokot) 1 tab DAILY PO Last administered on 02/15/17 08:36; Admin Dose 1 TAB; Start 02/05/17 at 09:00 Sertraline HCl (Zoloft) 50 mg DAILY PO Last administered on 02/16/17 08:28; Admin Dose 50 MG; Start 02/05/17 at 09:00 Sodium Biphosphate/ Sodium Phosphate (Fleet Enema) 133 ml DAILY PRN AR CONSTIPATION; Start 02/04/17 at 21:30 Tolterodine Tartrate (Detrol) 2 mg BID PO Last administered on 02/16/17 08:27 ; Admin Dose 2 MG; Start 02/04/17 at 21:15 Zolpidem Tartrate (Ambien) 5 mg HS PRN PO INSOMNIA Last administered on 21:40; Admin Dose 5 MG; Start 02/04/17 at 21:30 Miscellaneous Information 1 ea NOTE XX ; Start 02/04/17 at 21:30 Glucose (Glutose) 15 gm Q15M PRN PO DECREASED GLUCOSE; Start 02/04/17 at 21:30 Glucose (Glutose) 22.5 gm Q15M PRN PO DECREASED GLUCOSE Last administered on 15:41; Admin Dose 22.5 GM; Start 02/04/17 at 21:30 Dextrose (D50w Syringe) 25 ml Q15M PRN IV DECREASED GLUCOSE; Start 02/04/17 at 21:30 Dextrose (D50w Syringe) 50 ml Q15M PRN IV DECREASED GLUCOSE; Start 02/04/17 at 21:30 Glucagon (Glucagen) 1 mg Q15M PRN IM DECREASED GLUCOSE; Start 02/04/17 at 21:30 Glucose (Glutose) 15 gm Q15M PRN BUCCAL DECREASED GLUCOSE; Start 02/04/17 at 21 :30 Oxycodone HCl (Roxicodone) 5 mg TID PO Last administered on 02/16/17 08:28; Admin Dose 5 MG; Start 02/12/17 at 13:00 Warfarin Sodium (Coumadin) 7.5 mg DAILY@17 PO Last administered on 02/15/17 17 :36; Admin Dose 7.5 MG; Start 02/13/17 at 17:00 Levofloxacin (Levaquin) 250 mg Q48H PO Last administered on 02/15/17 17:36; Admin Dose 250 MG; Start 02/15/17 at 13:30 Assessment/Plan Additional Assessment/Plan Rehab- lumbar radiculopathy and diskitis, status post transforaminal interbody fusion. Continue rehab treatment plan TIA. End-stage renal disease, on hemodialysis. Diabetes mellitus. Diabetic nephropathy. Coronary artery disease. Hyperlipidemia. Anemia. Paroxysmal atrial fibrillation. Mineral bone disease. ALINE CORREIA MD Feb 16, 2017 09:54
[2017-02-16] MEDS: HYDROCODONE/APAP (10/325) TAB PO PRN (11:17)
--- NOTE | 2017-02-16 16:18 | CONS ---
Date/Time of Note Date/Time of Note DATE: 02/16/17 TIME: 16:15 Consult Date/Type/Reason Admit Date/Time Feb 04, 2017 at 20:01 Initial Consult Date Type of Consultation: neph Subjective SUBJECTIVE: The patient is stable. No events overnight. No fevers, chills, nausea, vomiting. OBJECTIVE: HEENT: Head is normocephalic. NECK: Supple. HEART: Regular rate. LUNGS: Show diminished sounds at base. ABDOMEN: Soft, nontender to palpation without rebound or guarding. EXTREMITIES: Negative for clubbing, cyanosis, edema. DERMATOLOGIC: No rashes. MUSCULOSKELETAL: No joint effusions. NEUROLOGIC: No change in exam. Objective Vital Signs Date Time Temp Pulse Resp B/P Pulse Ox O2 Delivery O2 Flow Rate FiO2 02/16/17 07:00 98.7 84 18 175/81 98 02/14/17 14:00 Room Air Intake and Output 02/15/17 02/15/17 02/16/17 15:00 23:00 07:00 Intake Total 500 ml 300 ml Balance 500 ml 300 ml Results/Medications Result Diagram: 02/15/17 0644 02/15/17 0643 Results 24 hrs Laboratory Tests Test 02/15/17 17:34 02/15/17 20:47 02/16/17 07:46 02/16/17 12:13 Bedside Glucose 127 115 77 84 Medications Current Medications Diagnostic Test (Pha) (Accu-Chek) 1 ea 02 XX ; Start 02/05/17 at 02:00 Amlodipine Besylate (Norvasc) 10 mg DAILY PO Last administered on 02/16/17 08 :29; Admin Dose 10 MG; Start 02/05/17 at 09:00 Acetaminophen/ Hydrocodone Bitart ([place] (10/325)) 1 tab Q4H PRN PO 4-6 PAIN Last administered on 02/16/17 11:17; Admin Dose 1 TAB; Start 02/04/17 at 21:00 Aspirin (Aspirin) 162 mg DAILY PO Last administered on 02/16/17 08:28; Admin Dose 162 MG; Start 02/05/17 at 09:00 Atorvastatin Calcium (Lipitor) 80 mg QHS PO Last administered on 02/15/17 20: 51; Admin Dose 80 MG; Start 02/04/17 at 21:00 Bisacodyl (Dulcolax Supp) 10 mg Q24H PRN AR CONSTIPATION; Start 02/04/17 at 21: 00 Clonidine (Catapres) 0.1 mg Q6H PRN PO ELEVATED SYSTOLIC BP Last administered on 02/08/17 06:23; Admin Dose 0.1 MG; Start 02/04/17 at 21:00 Docusate Sodium (Colace) 100 mg QHS PRN PO CONSTIPATION Last administered on 08:46; Admin Dose 100 MG; Start 02/04/17 at 21:00 Heparin Sodium (Porcine) (Heparin (5000 Units/0.5 ml)) 5,000 unit BID SC Last administered on 02/16/17 08:29; Admin Dose 5,000 UNIT; Start 02/04/17 at 21:00 Hydralazine HCl (Apresoline) 75 mg TID PO Last administered on 02/16/17 12:33 ; Admin Dose 75 MG; Start 02/04/17 at 21:00 Lactulose (Enulose) 20 gm DAILY PRN PO CONSTIPATION; Start 02/04/17 at 21:00 Lidocaine (Lidoderm) 1 patch QPM TD Last administered on 02/14/17 20:52; Admin Dose 1 PATCH; Start 02/04/17 at 21:00 Lubiprostone (Amitiza) 24 mcg BID PO Last administered on 02/15/17 20:50; Admin Dose 24 MCG; Start 02/04/17 at 21:30 Metoclopramide HCl (Reglan) 5 mg BID PO Last administered on 02/16/17 08:27; Admin Dose 5 MG; Start 02/04/17 at 21:00 Metoprolol Tartrate (Lopressor) 100 mg BID PO Last administered on 02/16/17 08:26; Admin Dose 100 MG; Start 02/04/17 at 21:00 Morphine Sulfate (morphine) 2 mg Q3H PRN IV PAIN LEVEL 6-10 Last administered on 02/12/17 14:57; Admin Dose 2 MG; Start 02/04/17 at 21:00 Naloxone HCl (Narcan) 0.2 mg Q2M PRN IV RR 8 BREATHS/MIN OR LESS; Start at 21:00 Nitroglycerin (Nitroglycerin 2% Oint) 1 inch Q6 TD Last administered on 12:33; Admin Dose 1 INCH; Start 02/05/17 at 00:00 Ondansetron HCl (Zofran Inj) 4 mg Q6H PRN IV NAUSEA AND/OR VOMITING; Start at 21:00 Pantoprazole (Protonix Tab) 40 mg DAILY@06 PO Last administered on 02/16/17 08:28; Admin Dose 40 MG; Start 02/05/17 at 06:00 Polyethylene Glycol (Miralax) 17 gm BID PO Last administered on 02/12/17 08:54 ; Admin Dose 17 GM; Start 02/04/17 at 21:00 IV Flush (NS 10 ml) 10 ml PRN PRN IV IV PROTOCOL Last administered on 00:41; Admin Dose 10 ML; Start 02/04/17 at 21:30 Senna (Senokot) 1 tab DAILY PO Last administered on 02/15/17 08:36; Admin Dose 1 TAB; Start 02/05/17 at 09:00 Sertraline HCl (Zoloft) 50 mg DAILY PO Last administered on 02/16/17 08:28; Admin Dose 50 MG; Start 02/05/17 at 09:00 Sodium Biphosphate/ Sodium Phosphate (Fleet Enema) 133 ml DAILY PRN AR CONSTIPATION; Start 02/04/17 at 21:30 Tolterodine Tartrate (Detrol) 2 mg BID PO Last administered on 02/16/17 08:27 ; Admin Dose 2 MG; Start 02/04/17 at 21:15 Zolpidem Tartrate (Ambien) 5 mg HS PRN PO INSOMNIA Last administered on 21:40; Admin Dose 5 MG; Start 02/04/17 at 21:30 Miscellaneous Information 1 ea NOTE XX ; Start 02/04/17 at 21:30 Glucose (Glutose) 15 gm Q15M PRN PO DECREASED GLUCOSE; Start 02/04/17 at 21:30 Glucose (Glutose) 22.5 gm Q15M PRN PO DECREASED GLUCOSE Last administered on 15:41; Admin Dose 22.5 GM; Start 02/04/17 at 21:30 Dextrose (D50w Syringe) 25 ml Q15M PRN IV DECREASED GLUCOSE; Start 02/04/17 at 21:30 Dextrose (D50w Syringe) 50 ml Q15M PRN IV DECREASED GLUCOSE; Start 02/04/17 at 21:30 Glucagon (Glucagen) 1 mg Q15M PRN IM DECREASED GLUCOSE; Start 02/04/17 at 21:30 Glucose (Glutose) 15 gm Q15M PRN BUCCAL DECREASED GLUCOSE; Start 02/04/17 at 21 :30 Oxycodone HCl (Roxicodone) 5 mg TID PO Last administered on 02/16/17 12:32; Admin Dose 5 MG; Start 02/12/17 at 13:00 Warfarin Sodium (Coumadin) 7.5 mg DAILY@17 PO Last administered on 02/15/17 17 :36; Admin Dose 7.5 MG; Start 02/13/17 at 17:00 Levofloxacin (Levaquin) 250 mg Q48H PO Last administered on 02/15/17 17:36; Admin Dose 250 MG; Start 02/15/17 at 13:30 Assessment/Plan Chief Complaint/Hosp Course ASSESSMENT AND PLAN: 1. Diskitis L5-S1 radiculopathy. The patient is status post transforaminal lumbar interbody fusion. Patient is currently stable. Continue antibiotic therapy until 03/05 2. Chronic back pain, improving. Continue current pain regimen. 3. End-stage renal disease. Plan for dialysis tomorrow 4. Hypertension. Continue current blood pressure regimen. 5. Atrial fibrillation. The patient is on Coumadin. INR is not at goal. 6. Status post transient ischemic attack. 7. Anemia. Monitor hemoglobin and hematocrit levels. 8. Mineral bone disorder, monitor calcium and phosphorus levels. 9. Diabetes. Continue Accu-Cheks, insulin sliding scale. Problems: KATELYN JONES MD Feb 16, 2017 16:18
[2017-02-16] MEDS: VANCOMYCIN 1.25 GM in SOD CHLORIDE 0.9% 250 ML IVPB SCH (18:10)
--- NOTE | 2017-02-16 18:43 | CONS ---
Date/Time of Note Date/Time of Note DATE: 02/16/17 TIME: 18:42 Consult Date/Type/Reason Admit Date/Time Feb 04, 2017 at 20:01 Type of Consultation: cardiology Subjective CARDIOLOGY FOLLOW UP NOTE Discussed with staff she denies any chest pain or pressure or palpitation to me. she denies back pain and states she is able to walk better now. She states she is still working with PT no bleeding she does not have IV access anymore objective: General: no acute distress HEENT: NC/AT. pupils are equal. round. NECK: NO JVD. no stridor. CV: RRR. systolic murmur; no gallop or rubs. PULM: no wheezing or rhonchi. GI: SOFT, NT, ND, no rebound or guarding Extremity: trace B/L LE edema. no clubbing. neuro: awake and alert, Psych: calm and pleasant rectal: deferred Derm: multiple tattoos. Objective Vital Signs Date Time Temp Pulse Resp B/P Pulse Ox O2 Delivery O2 Flow Rate FiO2 02/16/17 07:00 98.7 84 18 175/81 98 02/14/17 14:00 Room Air Intake and Output 02/15/17 02/15/17 02/16/17 15:00 23:00 07:00 Intake Total 500 ml 300 ml Balance 500 ml 300 ml Results/Medications Result Diagram: 02/15/17 0644 02/15/17 0643 Results 24 hrs Laboratory Tests Test 02/15/17 20:47 02/16/17 07:46 02/16/17 12:13 02/16/17 17:29 Bedside Glucose 115 77 84 159 Medications Current Medications Diagnostic Test (Pha) (Accu-Chek) 1 ea 02 XX ; Start 02/05/17 at 02:00 Amlodipine Besylate (Norvasc) 10 mg DAILY PO Last administered on 02/16/17 08 :29; Admin Dose 10 MG; Start 02/05/17 at 09:00 Acetaminophen/ Hydrocodone Bitart ([place] (10/325)) 1 tab Q4H PRN PO 4-6 PAIN Last administered on 02/16/17 11:17; Admin Dose 1 TAB; Start 02/04/17 at 21:00 Aspirin (Aspirin) 162 mg DAILY PO Last administered on 02/16/17 08:28; Admin Dose 162 MG; Start 02/05/17 at 09:00 Atorvastatin Calcium (Lipitor) 80 mg QHS PO Last administered on 02/15/17 20: 51; Admin Dose 80 MG; Start 02/04/17 at 21:00 Bisacodyl (Dulcolax Supp) [address] CONSTIPATION; Start 02/04/17 at 21: 00 Clonidine (Catapres) 0.1 mg Q6H PRN PO ELEVATED SYSTOLIC BP Last administered on 02/08/17 06:23; Admin Dose 0.1 MG; Start 02/04/17 at 21:00 Docusate Sodium (Colace) 100 mg QHS PRN PO CONSTIPATION Last administered on 08:46; Admin Dose 100 MG; Start 02/04/17 at 21:00 Heparin Sodium (Porcine) (Heparin (5000 Units/0.5 ml)) 5,000 unit BID SC Last administered on 02/16/17 08:29; Admin Dose 5,000 UNIT; Start 02/04/17 at 21:00 Hydralazine HCl (Apresoline) 75 mg TID PO Last administered on 02/16/17 12:33 ; Admin Dose 75 MG; Start 02/04/17 at 21:00 Lactulose (Enulose) 20 gm DAILY PRN PO CONSTIPATION; Start 02/04/17 at 21:00 Lidocaine (Lidoderm) 1 patch QPM TD Last administered on 02/14/17 20:52; Admin Dose 1 PATCH; Start 02/04/17 at 21:00 Lubiprostone (Amitiza) 24 mcg BID PO Last administered on 02/15/17 20:50; Admin Dose 24 MCG; Start 02/04/17 at 21:30 Metoclopramide HCl (Reglan) 5 mg BID PO Last administered on 02/16/17 08:27; Admin Dose 5 MG; Start 02/04/17 at 21:00 Metoprolol Tartrate (Lopressor) 100 mg BID PO Last administered on 02/16/17 08:26; Admin Dose 100 MG; Start 02/04/17 at 21:00 Morphine Sulfate (morphine) 2 mg Q3H PRN IV PAIN LEVEL 6-10 Last administered on 02/12/17 14:57; Admin Dose 2 MG; Start 02/04/17 at 21:00 Naloxone HCl (Narcan) 0.2 mg Q2M PRN IV RR 8 BREATHS/MIN OR LESS; Start at 21:00 Nitroglycerin (Nitroglycerin 2% Oint) 1 inch Q6 TD Last administered on 12:33; Admin Dose 1 INCH; Start 02/05/17 at 00:00 Ondansetron HCl (Zofran Inj) 4 mg Q6H PRN IV NAUSEA AND/OR VOMITING; Start at 21:00 Pantoprazole (Protonix Tab) 40 mg DAILY@06 PO Last administered on 02/16/17 08:28; Admin Dose 40 MG; Start 02/05/17 at 06:00 Polyethylene Glycol (Miralax) 17 gm BID PO Last administered on 02/12/17 08:54 ; Admin Dose 17 GM; Start 02/04/17 at 21:00 IV Flush (NS 10 ml) 10 ml PRN PRN IV IV PROTOCOL Last administered on 00:41; Admin Dose 10 ML; Start 02/04/17 at 21:30 Senna (Senokot) 1 tab DAILY PO Last administered on 02/15/17 08:36; Admin Dose 1 TAB; Start 02/05/17 at 09:00 Sertraline HCl (Zoloft) 50 mg DAILY PO Last administered on 02/16/17 08:28; Admin Dose 50 MG; Start 02/05/17 at 09:00 Sodium Biphosphate/ Sodium Phosphate (Fleet Enema) [address] CONSTIPATION; Start 02/04/17 at 21:30 Tolterodine Tartrate (Detrol) 2 mg BID PO Last administered on 02/16/17 08:27 ; Admin Dose 2 MG; Start 02/04/17 at 21:15 Zolpidem Tartrate (Ambien) 5 mg HS PRN PO INSOMNIA Last administered on 21:40; Admin Dose 5 MG; Start 02/04/17 at 21:30 Miscellaneous Information 1 ea NOTE XX ; Start 02/04/17 at 21:30 Glucose (Glutose) 15 gm Q15M PRN PO DECREASED GLUCOSE; Start 02/04/17 at 21:30 Glucose (Glutose) 22.5 gm Q15M PRN PO DECREASED GLUCOSE Last administered on 15:41; Admin Dose 22.5 GM; Start 02/04/17 at 21:30 Dextrose (D50w Syringe) 25 ml Q15M PRN IV DECREASED GLUCOSE; Start 02/04/17 at 21:30 Dextrose (D50w Syringe) 50 ml Q15M PRN IV DECREASED GLUCOSE; Start 02/04/17 at 21:30 Glucagon (Glucagen) 1 mg Q15M PRN IM DECREASED GLUCOSE; Start 02/04/17 at 21:30 Glucose (Glutose) 15 gm Q15M PRN BUCCAL DECREASED GLUCOSE; Start 02/04/17 at 21 :30 Oxycodone HCl (Roxicodone) 5 mg TID PO Last administered on 02/16/17 12:32; Admin Dose 5 MG; Start 02/12/17 at 13:00 Warfarin Sodium (Coumadin) 7.5 mg DAILY@17 PO Last administered on 02/15/17 17 :36; Admin Dose 7.5 MG; Start 02/13/17 at 17:00 Levofloxacin (Levaquin) 250 mg Q48H PO Last administered on 02/15/17 17:36; Admin Dose 250 MG; Start 02/15/17 at 13:30 Assessment/Plan Chief Complaint/Hosp Course 1. Paroxysmal atrial fibrillation. Currently appears to be remaining in sinus rhythm. 2. History of multiple cerebrovascular accidents (CVA). 3. Renal failure on dialysis. 4. Hypertension. 5. Chronic obstructive pulmonary disease (COPD). 6. History of spinal infection and s/p spinal surgery. 7. Anemia. 8. Dyslipidemia. 9. Diabetes. PLAN: cont coumadin and adjust based on daily INR. We will continue with the current blood pressure medications. Dialysis will be continued as per renal. Physical therapy and rehabilitation. Antibiotic as per Internal Medicine and ID recommendations. Once the INR is therapeutic, aspirin will be discontinued as well. Thank you for this referral. I will Continue to follow along with you. TAMERA BAILEY MD [facility] Problems: TAMERA BAILEY MD Feb 16, 2017 18:43
[2017-02-16] MEDS: WARFARIN 7.5 MG TAB PO SCH (20:26)
[2017-02-16] MEDS: ATORVASTATIN 80 MG TAB PO SCH (20:27)
[2017-02-16] MEDS: ZOLPIDEM 5 MG TAB PO PRN (20:27)
[2017-02-16] MEDS: LIDOCAINE 5% PATCH TD SCH (20:36)
[2017-02-17 02:00] VITALS: BP 154/72; PULSE 73; RESP 19
[2017-02-17] MEDS: ACCU-CHEK XX SCH (02:00)
[2017-02-17] MEDS: NITROGLYCERIN 2% 1 GM OINT PKT TD SCH ×5 (05:55→23:51)
[2017-02-17] MEDS: HYDROCODONE/APAP (10/325) TAB PO PRN (06:34)
[2017-02-17 07:00] VITALS: BP 159/73; RESP 18
[2017-02-17] MEDS: INSULIN ASPART [NOVOLOG] 3 ML PEN SC SCH ×4 (07:35→20:54)
--- NOTE | 2017-02-17 08:31 | CONS ---
Date/Time of Note Date/Time of Note DATE: 02/17/17 TIME: 08:31 Consult Date/Type/Reason Admit Date/Time Feb 04, 2017 at 20:01 Type of Consultation: cardiology Subjective CARDIOLOGY FOLLOW UP NOTE Discussed with staff she denies any chest pain or pressure or palpitation to me. she denies back pain and states she is able to walk better now. She states she is still working with PT no bleeding she does not have IV access anymore and getting abx through HD objective: General: no acute distress HEENT: NC/AT. pupils are equal. round. NECK: NO JVD. no stridor. CV: RRR. systolic murmur; no gallop or rubs. PULM: no wheezing or rhonchi. GI: SOFT, NT, ND, no rebound or guarding Extremity: trace B/L LE edema. no clubbing. neuro: awake and alert, Psych: calm and pleasant rectal: deferred Derm: multiple tattoos. Objective Vital Signs Date Time Temp Pulse Resp B/P Pulse Ox O2 Delivery O2 Flow Rate FiO2 02/17/17 02:00 97.9 73 19 154/72 95 Room Air Intake and Output 02/16/17 02/16/17 02/17/17 15:00 23:00 07:00 Intake Total 1350 ml 250 ml Output Total 3300 ml Balance -1950 ml 250 ml Results/Medications Result Diagram: 02/15/17 0644 02/15/17 0643 Results 24 hrs Laboratory Tests Test 02/16/17 12:13 02/16/17 17:29 02/16/17 20:22 02/17/17 07:46 Bedside Glucose 84 159 156 94 Medications Current Medications Diagnostic Test (Pha) (Accu-Chek) 1 02 XX ; Start 02/05/17 at 02:00 Amlodipine Besylate (Norvasc) 10 mg DAILY PO Last administered on 02/16/17 08 :29; Admin Dose 10 MG; Start 02/05/17 at 09:00 Acetaminophen/ Hydrocodone Bitart ([place] (10/325)) 1 tab Q4H PRN PO 4-6 PAIN Last administered on 02/17/17 06:34; Admin Dose 1 TAB; Start 02/04/17 at 21:00 Aspirin (Aspirin) 162 mg DAILY PO Last administered on 02/16/17 08:28; Admin Dose 162 MG; Start 02/05/17 at 09:00 Atorvastatin Calcium (Lipitor) 80 mg QHS PO Last administered on 02/16/17 20: 27; Admin Dose 80 MG; Start 02/04/17 at 21:00 Bisacodyl (Dulcolax Supp) 10 mg Q24H PRN [place] CONSTIPATION; Start 02/04/17 at 21: 00 Clonidine (Catapres) 0.1 mg Q6H PRN PO ELEVATED SYSTOLIC BP Last administered on 02/08/17 06:23; Admin Dose 0.1 MG; Start 02/04/17 at 21:00 Docusate Sodium (Colace) 100 mg QHS PRN PO CONSTIPATION Last administered on 08:46; Admin Dose 100 MG; Start 02/04/17 at 21:00 Heparin Sodium (Porcine) (Heparin (5000 Units/0.5 ml)) 5,000 unit BID SC Last administered on 02/16/17 08:29; Admin Dose 5,000 UNIT; Start 02/04/17 at 21:00 Hydralazine HCl (Apresoline) 75 mg TID PO Last administered on 02/16/17 20:31 ; Admin Dose 75 MG; Start 02/04/17 at 21:00 Lactulose (Enulose) 20 gm DAILY PRN PO CONSTIPATION; Start 02/04/17 at 21:00 Lidocaine (Lidoderm) 1 patch QPM TD Last administered on 02/14/17 20:52; Admin Dose 1 PATCH; Start 02/04/17 at 21:00 Lubiprostone (Amitiza) 24 mcg BID PO Last administered on 02/16/17 20:27; Admin Dose 24 MCG; Start 02/04/17 at 21:30 Metoclopramide HCl (Reglan) 5 mg BID PO Last administered on 02/16/17 20:27; Admin Dose 5 MG; Start 02/04/17 at 21:00 Metoprolol Tartrate (Lopressor) 100 mg BID PO Last administered on 02/16/17 20:27; Admin Dose 100 MG; Start 02/04/17 at 21:00 Morphine Sulfate (morphine) 2 mg Q3H PRN IV PAIN LEVEL 6-10 Last administered on 02/12/17 14:57; Admin Dose 2 MG; Start 02/04/17 at 21:00 Naloxone HCl (Narcan) 0.2 mg Q2M PRN IV RR 8 BREATHS/MIN OR LESS; Start at 21:00 Nitroglycerin (Nitroglycerin 2% Oint) 1 inch Q6 TD Last administered on 05:55; Admin Dose 1 INCH; Start 02/05/17 at 00:00 Ondansetron HCl (Zofran Inj) 4 mg Q6H PRN IV NAUSEA AND/OR VOMITING; Start at 21:00 Pantoprazole (Protonix Tab) 40 mg DAILY@06 PO Last administered on 02/16/17 08:28; Admin Dose 40 MG; Start 02/05/17 at 06:00 Polyethylene Glycol (Miralax) 17 gm BID PO Last administered on 02/12/17 08:54 ; Admin Dose 17 GM; Start 02/04/17 at 21:00 IV Flush (NS 10 ml) 10 ml PRN PRN IV IV PROTOCOL Last administered on 00:41; Admin Dose 10 ML; Start 02/04/17 at 21:30 Senna (Senokot) 1 tab DAILY PO Last administered on 02/15/17 08:36; Admin Dose 1 TAB; Start 02/05/17 at 09:00 Sertraline HCl (Zoloft) 50 mg DAILY PO Last administered on 02/16/17 08:28; Admin Dose 50 MG; Start 02/05/17 at 09:00 Sodium Biphosphate/ Sodium Phosphate (Fleet Enema) 133 ml DAILY PRN [place] CONSTIPATION; Start 02/04/17 at 21:30 Tolterodine Tartrate (Detrol) 2 mg BID PO Last administered on 02/16/17 20:26 ; Admin Dose 2 MG; Start 02/04/17 at 21:15 Zolpidem Tartrate (Ambien) 5 mg HS PRN PO INSOMNIA Last administered on 20:27; Admin Dose 5 MG; Start 02/04/17 at 21:30 Miscellaneous Information 1 ea NOTE XX ; Start 02/04/17 at 21:30 Glucose (Glutose) 15 gm Q15M PRN PO DECREASED GLUCOSE; Start 02/04/17 at 21:30 Glucose (Glutose) 22.5 gm Q15M PRN PO DECREASED GLUCOSE Last administered on 15:41; Admin Dose 22.5 GM; Start 02/04/17 at 21:30 Dextrose (D50w Syringe) 25 ml Q15M PRN IV DECREASED GLUCOSE; Start 02/04/17 at 21:30 Dextrose (D50w Syringe) 50 ml Q15M PRN IV DECREASED GLUCOSE; Start 02/04/17 at 21:30 Glucagon (Glucagen) 1 mg Q15M PRN IM DECREASED GLUCOSE; Start 02/04/17 at 21:30 Glucose (Glutose) 15 gm Q15M PRN BUCCAL DECREASED GLUCOSE; Start 02/04/17 at 21 :30 Oxycodone HCl (Roxicodone) 5 mg TID PO Last administered on 02/16/17 20:28; Admin Dose 5 MG; Start 02/12/17 at 13:00 Warfarin Sodium (Coumadin) 7.5 mg DAILY@17 PO Last administered on 02/16/17 20:26; Admin Dose 7.5 MG; Start 02/13/17 at 17:00 Levofloxacin (Levaquin) 250 mg Q48H PO Last administered on 02/15/17 17:36; Admin Dose 250 MG; Start 02/15/17 at 13:30 Assessment/Plan Chief Complaint/Hosp Course 1. Paroxysmal atrial fibrillation. Currently appears to be remaining in sinus rhythm. 2. History of multiple cerebrovascular accidents (CVA). 3. Renal failure on dialysis. 4. Hypertension. 5. Chronic obstructive pulmonary disease (COPD). 6. History of spinal infection and s/p spinal surgery. 7. Anemia. 8. Dyslipidemia. 9. Diabetes. PLAN: cont coumadin and adjust based on daily INR. We will continue with the current blood pressure medications. Dialysis will be continued as per renal. Physical therapy and rehabilitation. Antibiotic as per Internal Medicine and ID recommendations. Once the INR is therapeutic, aspirin will be discontinued as well. Thank you for this referral. I will Continue to follow along with you. TAMERA BAILEY MD [facility] Problems: TAMERA BAILEY MD Feb 17, 2017 08:31
[2017-02-17] MEDS: LUBIPROSTONE 24 MCG CAP PO SCH ×2 (08:59→20:52)
[2017-02-17] MEDS: SEVELAMER 800 MG TAB PO SCH ×3 (08:59→17:28)
[2017-02-17] MEDS: oxyCODONE 5 MG TAB PO SCH ×3 (08:59→20:54)
[2017-02-17] MEDS: SERTRALINE 50 MG TAB PO SCH (08:59)
[2017-02-17] MEDS: TOLTERODINE 2 MG TAB PO SCH ×2 (08:59→20:52)
[2017-02-17] MEDS: AMLODIPINE 10 MG TAB PO SCH (09:00)
[2017-02-17] MEDS: ASPIRIN 81 MG TAB PO SCH (09:03)
[2017-02-17] MEDS: METOCLOPRAMIDE 10 MG TAB PO SCH ×2 (09:03→20:53)
[2017-02-17] MEDS: SENNA TAB PO SCH (09:04)
[2017-02-17] MEDS: POLYETHYLENE GLYCOL 17 GM PACKET PO SCH ×2 (09:04→20:53)
[2017-02-17] MEDS: METOPROLOL 100 MG TAB PO SCH ×2 (09:04→20:53)
[2017-02-17] MEDS: HEPARIN 5,000 UNIT/0.5 ML VIAL SC SCH ×2 (09:09→21:00)
--- NOTE | 2017-02-17 11:43 | CONS ---
Date/Time of Note Date/Time of Note DATE: 02/17/17 TIME: 11:42 Consult Date/Type/Reason Admit Date/Time Feb 04, 2017 at 20:01 Type of Consultation: cardiology Subjective Patient in great spirits Objective [id number] s ambulation 150 feet Vital Signs Date Time Temp Pulse Resp B/P Pulse Ox O2 Delivery O2 Flow Rate FiO2 02/17/17 07:00 98.7 76 18 159/73 94 02/17/17 02:00 Room Air Intake and Output 02/16/17 02/16/17 02/17/17 15:00 23:00 07:00 Intake Total 1350 ml 250 ml Output Total 3300 ml Balance -1950 ml 250 ml Results/Medications Result Diagram: 02/15/1744 02/15/17 0643 Results 24 hrs Laboratory Tests Test 02/16/17 12:13 02/16/17 17:29 02/16/17 20:22 02/17/17 07:46 Bedside Glucose 84 159 156 94 Medications Current Medications Diagnostic Test (Pha) (Accu-Chek) 1 ea 02 XX ; Start 02/05/17 at 02:00 Amlodipine Besylate (Norvasc) 10 mg DAILY PO Last administered on 02/17/17 09 :00; Admin Dose 10 MG; Start 02/05/17 at 09:00 Acetaminophen/ Hydrocodone Bitart ([place] (10/325)) 1 tab Q4H PRN PO 4-6 PAIN Last administered on 02/17/17 06:34; Admin Dose 1 TAB; Start 02/04/17 at 21:00 Aspirin (Aspirin) 162 mg DAILY PO Last administered on 02/17/17 09:03; Admin Dose 162 MG; Start 02/05/17 at 09:00 Atorvastatin Calcium (Lipitor) 80 mg QHS PO Last administered on 02/16/17 20: 27; Admin Dose 80 MG; Start 02/04/17 at 21:00 Bisacodyl (Dulcolax Supp) 10 mg Q24H PRN [place] CONSTIPATION; Start 02/04/17 at 21: 00 Clonidine (Catapres) 0.1 mg Q6H PRN PO ELEVATED SYSTOLIC BP Last administered on 02/08/17 06:23; Admin Dose 0.1 MG; Start 02/04/17 at 21:00 Docusate Sodium (Colace) 100 mg QHS PRN PO CONSTIPATION Last administered on 08:46; Admin Dose 100 MG; Start 02/04/17 at 21:00 Heparin Sodium (Porcine) (Heparin (5000 Units/0.5 ml)) 5,000 unit BID SC Last administered on 02/17/17 09:09; Admin Dose 5,000 UNIT; Start 02/04/17 at 21:00 Hydralazine HCl (Apresoline) 75 mg TID PO Last administered on 02/17/17 09:05 ; Admin Dose 75 MG; Start 02/04/17 at 21:00 Lactulose (Enulose) 20 gm DAILY PRN PO CONSTIPATION; Start 02/04/17 at 21:00 Lidocaine (Lidoderm) 1 patch QPM TD Last administered on 02/14/17 20:52; Admin Dose 1 PATCH; Start 02/04/17 at 21:00 Lubiprostone (Amitiza) 24 mcg BID PO Last administered on 02/17/17 08:59; Admin Dose 24 MCG; Start 02/04/17 at 21:30 Metoclopramide HCl (Reglan) 5 mg BID PO Last administered on 02/17/17 09:03; Admin Dose 5 MG; Start 02/04/17 at 21:00 Metoprolol Tartrate (Lopressor) 100 mg BID PO Last administered on 02/17/17 09:04; Admin Dose 100 MG; Start 02/04/17 at 21:00 Morphine Sulfate (morphine) 2 mg Q3H PRN IV PAIN LEVEL 6-10 Last administered on 02/12/17 14:57; Admin Dose 2 MG; Start 02/04/17 at 21:00 Naloxone HCl (Narcan) 0.2 mg Q2M PRN IV RR 8 BREATHS/MIN OR LESS; Start at 21:00 Nitroglycerin (Nitroglycerin 2% Oint) 1 inch Q6 TD Last administered on 05:55; Admin Dose 1 INCH; Start 02/05/17 at 00:00 Ondansetron HCl (Zofran Inj) 4 mg Q6H PRN IV NAUSEA AND/OR VOMITING; Start at 21:00 Pantoprazole (Protonix Tab) 40 mg DAILY@06 PO Last administered on 02/16/17 08:28; Admin Dose 40 MG; Start 02/05/17 at 06:00 Polyethylene Glycol (Miralax) 17 gm BID PO Last administered on 02/17/17 09: 04; Admin Dose 17 GM; Start 02/04/17 at 21:00 IV Flush (NS 10 ml) 10 ml PRN PRN IV IV PROTOCOL Last administered on 00:41; Admin Dose 10 ML; Start 02/04/17 at 21:30 Senna (Senokot) 1 tab DAILY PO Last administered on 02/17/17 09:04; Admin Dose 1 TAB; Start 02/05/17 at 09:00 Sertraline HCl (Zoloft) 50 mg DAILY PO Last administered on 02/17/17 08:59; Admin Dose 50 MG; Start 02/05/17 at 09:00 Sodium Biphosphate/ Sodium Phosphate (Fleet Enema) 133 ml DAILY PRN [place] CONSTIPATION; Start 02/04/17 at 21:30 Tolterodine Tartrate (Detrol) 2 mg BID PO Last administered on 02/17/17 08:59 ; Admin Dose 2 MG; Start 02/04/17 at 21:15 Zolpidem Tartrate (Ambien) 5 mg HS PRN PO INSOMNIA Last administered on 20:27; Admin Dose 5 MG; Start 02/04/17 at 21:30 Miscellaneous Information 1 ea NOTE XX ; Start 02/04/17 at 21:30 Glucose (Glutose) 15 gm Q15M PRN PO DECREASED GLUCOSE; Start 02/04/17 at 21:30 Glucose (Glutose) 22.5 gm Q15M PRN PO DECREASED GLUCOSE Last administered on 15:41; Admin Dose 22.5 GM; Start 02/04/17 at 21:30 Dextrose (D50w Syringe) 25 ml Q15M PRN IV DECREASED GLUCOSE; Start 02/04/17 at 21:30 Dextrose (D50w Syringe) 50 ml Q15M PRN IV DECREASED GLUCOSE; Start 02/04/17 at 21:30 Glucagon (Glucagen) 1 mg Q15M PRN IM DECREASED GLUCOSE; Start 02/04/17 at 21:30 Glucose (Glutose) 15 gm Q15M PRN BUCCAL DECREASED GLUCOSE; Start 02/04/17 at 21 :30 Oxycodone HCl (Roxicodone) 5 mg TID PO Last administered on 02/17/17 08:59; Admin Dose 5 MG; Start 02/12/17 at 13:00 Warfarin Sodium (Coumadin) 7.5 mg DAILY@17 PO Last administered on 02/16/17 20:26; Admin Dose 7.5 MG; Start 02/13/17 at 17:00 Levofloxacin (Levaquin) 250 mg Q48H PO Last administered on 02/15/17 17:36; Admin Dose 250 MG; Start 02/15/17 at 13:30 Miscellaneous Information (*Rx Drug Level Order Reminder*) RANDOM VANCOMYCIN LEVEL ... ONCE ONCE XX ; Start 02/18/17 at 07:00; Stop 02/18/17 at 07:01 Assessment/Plan Additional Assessment/Plan Rehab- lumbar radiculopathy and diskitis, status post transforaminal interbody fusion. Continue rehab treatment plan, anticipate dc tomorrow TIA. End-stage renal disease, on hemodialysis. Diabetes mellitus. Diabetic nephropathy. Coronary artery disease. Hyperlipidemia. Anemia. Paroxysmal atrial fibrillation. Mineral bone disease. ALINE CORREIA MD Feb 17, 2017 11:43
--- NOTE | 2017-02-17 12:12 | PN ---
Date/Time of Note Date/Time of Note DATE: 02/17/17 TIME: 12:12 Assessment/Plan VTE Prophylaxis VTE Prophylaxis Intervention: other Lines/Catheters IV Catheter Type (from Nrs): Mid Line Urinary Cath still in place: No Assessment/Plan Chief Complaint/Hosp Course SUBJECTIVE: The patient is stable. No events overnight. No fevers, chills, nausea, vomiting. OBJECTIVE: HEENT: Head is normocephalic. NECK: Supple. HEART: Regular rate. LUNGS: Show diminished sounds at base. ABDOMEN: Soft, nontender to palpation without rebound or guarding. EXTREMITIES: Negative for clubbing, cyanosis, edema. DERMATOLOGIC: No rashes. MUSCULOSKELETAL: No joint effusions. NEUROLOGIC: No change in exam. ASSESSMENT AND PLAN: 1. Diskitis L5-S1 radiculopathy. The patient is status post transforaminal lumbar interbody fusion. Patient is currently stable. Continue antibiotic therapy until 03/05 2. Chronic back pain, improving. Continue current pain regimen. 3. End-stage renal disease. Plan for dialysis today 4. Hypertension. Continue current blood pressure regimen. 5. Atrial fibrillation. The patient is on Coumadin. INR is not at goal. 6. Status post transient ischemic attack. 7. Anemia. Monitor hemoglobin and hematocrit levels. 8. Mineral bone disorder, monitor calcium and phosphorus levels. 9. Diabetes. Continue Accu-Cheks, insulin sliding scale. Problems: Exam/Review of Systems Vital Signs Vitals Vital Signs Date Time Temp Pulse Resp B/P Pulse Ox O2 Delivery O2 Flow Rate FiO2 02/17/17 07:00 98.7 76 18 159/73 94 02/17/17 02:00 Room Air Intake and Output 02/16/17 02/16/17 02/17/17 15:00 23:00 07:00 Intake Total 1350 ml 250 ml Output Total 3300 ml Balance -1950 ml 250 ml Results Result Diagram: 02/15/17 0644 02/15/17 0643 Results 24 hrs Laboratory Tests Test 02/16/17 12:13 02/16/17 17:29 02/16/17 20:22 02/17/17 07:46 Bedside Glucose 84 159 156 94 Medications Medications Current Medications Diagnostic Test (Pha) (Accu-Chek) 1 ea 02 XX ; Start 02/05/17 at 02:00 Amlodipine Besylate (Norvasc) 10 mg DAILY PO Last administered on 02/17/17 09 :00; Admin Dose 10 MG; Start 02/05/17 at 09:00 Acetaminophen/ Hydrocodone Bitart ([place] (10325)) 1 tab Q4H PRN PO 4-6 PAIN Last administered on 02/17/17 06:34; Admin Dose 1 TAB; Start 02/04/17 at 21:00 Aspirin (Aspirin) 162 mg DAILY PO Last administered on 02/17/17 09:03; Admin Dose 162 MG; Start 02/05/17 at 09:00 Atorvastatin Calcium (Lipitor) 80 mg QHS PO Last administered on 02/16/17 20: 27; Admin Dose 80 MG; Start 02/04/17 at 21:00 Bisacodyl (Dulcolax Supp) 10 mg Q24H PRN [place] CONSTIPATION; Start 02/04/17 at 21: 00 Clonidine (Catapres) 0.1 mg Q6H PRN PO ELEVATED SYSTOLIC BP Last administered on 02/08/17 06:23; Admin Dose 0.1 MG; Start 02/04/17 at 21:00 Docusate Sodium (Colace) 100 mg QHS PRN PO CONSTIPATION Last administered on 08:46; Admin Dose 100 MG; Start 02/04/17 at 21:00 Heparin Sodium (Porcine) (Heparin (5000 Units/0.5 ml)) 5,000 unit BID SC Last administered on 02/17/17 09:09; Admin Dose 5,000 UNIT; Start 02/04/17 at 21:00 Hydralazine HCl (Apresoline) 75 mg TID PO Last administered on 02/17/17 09:05 ; Admin Dose 75 MG; Start 02/04/17 at 21:00 Lactulose (Enulose) 20 gm DAILY PRN PO CONSTIPATION; Start 02/04/17 at 21:00 Lidocaine (Lidoderm) 1 patch QPM TD Last administered on 02/14/17 20:52; Admin Dose 1 PATCH; Start 02/04/17 at 21:00 Lubiprostone (Amitiza) 24 mcg BID PO Last administered on 02/17/17 08:59; Admin Dose 24 MCG; Start 02/04/17 at 21:30 Metoclopramide HCl (Reglan) 5 mg BID PO Last administered on 02/17/17 09:03; Admin Dose 5 MG; Start 02/04/17 at 21:00 Metoprolol Tartrate (Lopressor) 100 mg BID PO Last administered on 02/17/17 09:04; Admin Dose 100 MG; Start 02/04/17 at 21:00 Morphine Sulfate (morphine) 2 mg Q3H PRN IV PAIN LEVEL 6-10 Last administered on 02/12/17 14:57; Admin Dose 2 MG; Start 02/04/17 at 21:00 Naloxone HCl (Narcan) 0.2 mg Q2M PRN IV RR 8 BREATHS/MIN OR LESS; Start at 21:00 Nitroglycerin (Nitroglycerin 2% Oint) 1 inch Q6 TD Last administered on 05:55; Admin Dose 1 INCH; Start 02/05/17 at 00:00 Ondansetron HCl (Zofran Inj) 4 mg Q6H PRN IV NAUSEA AND/OR VOMITING; Start at 21:00 Pantoprazole (Protonix Tab) 40 mg DAILY@06 PO Last administered on 02/16/17 08:28; Admin Dose 40 MG; Start 02/05/17 at 06:00 Polyethylene Glycol (Miralax) 17 gm BID PO Last administered on 02/17/17 09: 04; Admin Dose 17 GM; Start 02/04/17 at 21:00 IV Flush (NS 10 ml) 10 ml PRN PRN IV IV PROTOCOL Last administered on 00:41; Admin Dose 10 ML; Start 02/04/17 at 21:30 Senna (Senokot) 1 tab DAILY PO Last administered on 02/17/17 09:04; Admin Dose 1 TAB; Start 02/05/17 at 09:00 Sertraline HCl (Zoloft) 50 mg DAILY PO Last administered on 02/17/17 08:59; Admin Dose 50 MG; Start 02/05/17 at 09:00 Sodium Biphosphate/ Sodium Phosphate (Fleet Enema) 133 ml DAILY PRN [place] CONSTIPATION; Start 02/04/17 at 21:30 Tolterodine Tartrate (Detrol) 2 mg BID PO Last administered on 02/17/17 08:59 ; Admin Dose 2 MG; Start 02/04/17 at 21:15 Zolpidem Tartrate (Ambien) 5 mg HS PRN PO INSOMNIA Last administered on 20:27; Admin Dose 5 MG; Start 02/04/17 at 21:30 Miscellaneous Information 1 ea NOTE XX ; Start 02/04/17 at 21:30 Glucose (Glutose) 15 gm Q15M PRN PO DECREASED GLUCOSE; Start 02/04/17 at 21:30 Glucose (Glutose) 22.5 gm Q15M PRN PO DECREASED GLUCOSE Last administered on 15:41; Admin Dose 22.5 GM; Start 02/04/17 at 21:30 Dextrose (D50w Syringe) 25 ml Q15M PRN IV DECREASED GLUCOSE; Start 02/04/17 at 21:30 Dextrose (D50w Syringe) 50 ml Q15M PRN IV DECREASED GLUCOSE; Start 02/04/17 at 21:30 Glucagon (Glucagen) 1 mg Q15M PRN IM DECREASED GLUCOSE; Start 02/04/17 at 21:30 Glucose (Glutose) 15 gm Q15M PRN BUCCAL DECREASED GLUCOSE; Start 02/04/17 at 21 :30 Oxycodone HCl (Roxicodone) 5 mg TID PO Last administered on 02/17/17 08:59; Admin Dose 5 MG; Start 02/12/17 at 13:00 Warfarin Sodium (Coumadin) 7.5 mg DAILY@17 PO Last administered on 02/16/17 20:26; Admin Dose 7.5 MG; Start 02/13/17 at 17:00 Levofloxacin (Levaquin) 250 mg Q48H PO Last administered on 02/15/17 17:36; Admin Dose 250 MG; Start 02/15/17 at 13:30 Miscellaneous Information (*Rx Drug Level Order Reminder*) RANDOM VANCOMYCIN LEVEL ... ONCE ONCE XX ; Start 02/18/17 at 07:00; Stop 02/18/17 at 07:01 CHANDA ROJAS DO Feb 17, 2017 12:12
[2017-02-17] MEDS: LEVOFLOXACIN 250 MG TAB PO SCH (13:17)
[2017-02-17] MEDS: WARFARIN 7.5 MG TAB PO SCH (17:28)
[2017-02-17 20:00] VITALS: BP 148/67; RESP 18
[2017-02-17] MEDS: ATORVASTATIN 80 MG TAB PO SCH (20:53)
[2017-02-17] MEDS: LIDOCAINE 5% PATCH TD SCH (20:54)
[2017-02-17] MEDS: ZOLPIDEM 5 MG TAB PO PRN (21:00)
[2017-02-18] VITALS (8 sets, daily range): BP systolic 121–158; BP diastolic 68–80; PULSE 74–79; RESP 18–20
[2017-02-18] MEDS: ACCU-CHEK XX SCH (02:00)
[2017-02-18] MEDS: HYDROCODONE/APAP (10/325) TAB PO PRN (05:52)
[2017-02-18] MEDS: PANTOPRAZOLE (EC) 40 MG TAB PO SCH (05:52)
[2017-02-18] MEDS: NITROGLYCERIN 2% 1 GM OINT PKT TD SCH (05:53)
[2017-02-18 07:14] LABS: INR 1.53; PROTIME 18.5 Sec (12.2-14.2); PT RATIO 1.4
[2017-02-18] MEDS: VANCOMYCIN 1.25 GM in SOD CHLORIDE 0.9% 250 ML IVPB SCH (08:07)
--- NOTE | 2017-02-18 08:22 | CONS ---
Date/Time of Note Date/Time of Note DATE: 02/18/17 TIME: 08:21 Consult Date/Type/Reason Admit Date/Time Feb 04, 2017 at 20:01 Type of Consultation: cardiology Subjective CARDIOLOGY FOLLOW UP NOTE Discussed with staff she denies any chest pain or pressure or palpitation to me. she denies back pain and states she is able to walk better now. She is on HD now and c/o weakness. no bleeding she does not have IV access anymore and getting abx through HD objective: General: no acute distress HEENT: NC/AT. pupils are equal. round. NECK: NO JVD. no stridor. CV: RRR. systolic murmur; no gallop or rubs. PULM: no wheezing or rhonchi. GI: SOFT, NT, ND, no rebound or guarding Extremity: trace B/L LE edema. no clubbing. neuro: awake and alert, Psych: calm and pleasant rectal: deferred Derm: multiple tattoos. Objective Vital Signs Date Time Temp Pulse Resp B/P Pulse Ox O2 Delivery O2 Flow Rate FiO2 02/18/17 02:00 98.5 78 18 135/68 95 02/17/17 02:00 Room Air Intake and Output 02/17/17 02/17/17 02/18/17 15:00 23:00 07:00 Intake Total 1320 ml 750 ml Output Total 650 ml Balance 670 ml 750 ml Results/Medications Result Diagram: 02/15/17 0644 02/15/17 0643 Results 24 hrs Laboratory Tests Test 02/17/17 12:25 02/17/17 17:27 02/17/17 20:49 02/18/17 06:06 Bedside Glucose 136 202 111 Prothrombin Time 18.5 H Prothrombin Time Ratio 1.4 INR International Normalized Ratio 1.53 Random Vancomycin Level 10.7 Test 02/18/17 08:13 Bedside Glucose 118 Medications Current Medications Diagnostic Test (Pha) (Accu-Chek) 1 ea 02 XX ; Start 02/05/17 at 02:00 Amlodipine Besylate (Norvasc) 10 mg DAILY PO Last administered on 02/17/17t 09 :00; Admin Dose 10 MG; Start 02/05/17 at 09:00 Acetaminophen/ Hydrocodone Bitart ([place] (10325)) 1 tab Q4H PRN PO 4-6 PAIN Last administered on 02/18/17 05:52; Admin Dose 1 TAB; Start 02/04/17 at 21:00 Aspirin (Aspirin) 162 mg DAILY PO Last administered on 02/17/17 09:03; Admin Dose 162 MG; Start 02/05/17 at 09:00 Atorvastatin Calcium (Lipitor) 80 mg QHS PO Last administered on 02/17/17 20: 53; Admin Dose 80 MG; Start 02/04/17 at 21:00 Bisacodyl (Dulcolax Supp) 10 mg Q24H PRN [place] CONSTIPATION; Start 02/04/17 at 21: 00 Clonidine (Catapres) 0.1 mg Q6H PRN PO ELEVATED SYSTOLIC BP Last administered on 02/08/17 06:23; Admin Dose 0.1 MG; Start 02/04/17 at 21:00 Docusate Sodium (Colace) 100 mg QHS PRN PO CONSTIPATION Last administered on 08:46; Admin Dose 100 MG; Start 02/04/17 at 21:00 Heparin Sodium (Porcine) (Heparin (5000 Units/0.5 ml)) 5,000 unit BID SC Last administered on 02/17/17 21:00; Admin Dose 5,000 UNIT; Start 02/04/17 at 21:00 Hydralazine HCl (Apresoline) 75 mg TID PO Last administered on 02/17/17 20:52 ; Admin Dose 75 MG; Start 02/04/17 at 21:00 Lactulose (Enulose) 20 gm DAILY PRN PO CONSTIPATION; Start 02/04/17 at 21:00 Lidocaine (Lidoderm) 1 patch QPM TD Last administered on 02/17/17 20:54; Admin Dose 1 PATCH; Start 02/04/17 at 21:00 Lubiprostone (Amitiza) 24 mcg BID PO Last administered on 02/17/17 08:59; Admin Dose 24 MCG; Start 02/04/17 at 21:30 Metoclopramide HCl (Reglan) 5 mg BID PO Last administered on 02/17/17 09:03; Admin Dose 5 MG; Start 02/04/17 at 21:00 Metoprolol Tartrate (Lopressor) 100 mg BID PO Last administered on 02/17/17 20:53; Admin Dose 100 MG; Start 02/04/17 at 21:00 Morphine Sulfate (morphine) 2 mg Q3H PRN IV PAIN LEVEL 6-10 Last administered on 02/12/17 14:57; Admin Dose 2 MG; Start 02/04/17 at 21:00 Naloxone HCl (Narcan) 0.2 mg Q2M PRN IV RR 8 BREATHS/MIN OR LESS; Start at 21:00 Nitroglycerin (Nitroglycerin 2% Oint) 1 inch Q6 TD Last administered on 05:53; Admin Dose 1 INCH; Start 02/05/17 at 00:00 Ondansetron HCl (Zofran Inj) 4 mg Q6H PRN IV NAUSEA AND/OR VOMITING; Start at 21:00 Pantoprazole (Protonix Tab) 40 mg DAILY@06 PO Last administered on 02/18/17 05:52; Admin Dose 40 MG; Start 02/05/17 at 06:00 Polyethylene Glycol (Miralax) 17 gm BID PO Last administered on 02/17/17 09: 04; Admin Dose 17 GM; Start 02/04/17 at 21:00 IV Flush (NS 10 ml) 10 ml PRN PRN IV IV PROTOCOL Last administered on 00:41; Admin Dose 10 ML; Start 02/04/17 at 21:30 Senna (Senokot) 1 tab DAILY PO Last administered on 02/17/17 09:04; Admin Dose 1 TAB; Start 02/05/17 at 09:00 Sertraline HCl (Zoloft) 50 mg DAILY PO Last administered on 02/17/17 08:59; Admin Dose 50 MG; Start 02/05/17 at 09:00 Sodium Biphosphate/ Sodium Phosphate (Fleet Enema) 133 ml DAILY PRN [place] CONSTIPATION; Start 02/04/17 at 21:30 Tolterodine Tartrate (Detrol) 2 mg BID PO Last administered on 02/17/17 20:52 ; Admin Dose 2 MG; Start 02/04/17 at 21:15 Zolpidem Tartrate (Ambien) 5 mg HS PRN PO INSOMNIA Last administered on 21:00; Admin Dose 5 MG; Start 02/04/17 at 21:30 Miscellaneous Information 1 ea NOTE XX ; Start 02/04/17 at 21:30 Glucose (Glutose) 15 gm Q15M PRN PO DECREASED GLUCOSE; Start 02/04/17 at 21:30 Glucose (Glutose) 22.5 gm Q15M PRN PO DECREASED GLUCOSE Last administered on 15:41; Admin Dose 22.5 GM; Start 02/04/17 at 21:30 Dextrose (D50w Syringe) 25 ml Q15M PRN IV DECREASED GLUCOSE; Start 02/04/17 at 21:30 Dextrose (D50w Syringe) 50 ml Q15M PRN IV DECREASED GLUCOSE; Start 02/04/17 at 21:30 Glucagon (Glucagen) 1 mg Q15M PRN IM DECREASED GLUCOSE; Start 02/04/17 at 21:30 Glucose (Glutose) 15 gm Q15M PRN BUCCAL DECREASED GLUCOSE; Start 02/04/17 at 21 :30 Oxycodone HCl (Roxicodone) 5 mg TID PO Last administered on 02/17/17 20:54; Admin Dose 5 MG; Start 02/12/17 at 13:00 Warfarin Sodium (Coumadin) 7.5 mg DAILY@17 PO Last administered on 02/17/17 17:28; Admin Dose 7.5 MG; Start 02/13/17 at 17:00 Levofloxacin (Levaquin) 250 mg Q48H PO Last administered on 02/17/17 13:17; Admin Dose 250 MG; Start 02/15/17 at 13:30 Assessment/Plan Chief Complaint/Hosp Course 1. Paroxysmal atrial fibrillation. Currently appears to be remaining in sinus rhythm. 2. History of multiple cerebrovascular accidents (CVA). 3. Renal failure on dialysis. 4. Hypertension. 5. Chronic obstructive pulmonary disease (COPD). 6. History of spinal infection and s/p spinal surgery. 7. Anemia. 8. Dyslipidemia. 9. Diabetes. PLAN: cont coumadin and adjust based on daily INR. will give coumadin 10 mg po today then inc 8 mg daily tomorrow. We will continue with the current blood pressure medications. Dialysis will be continued as per renal. Physical therapy and rehabilitation. Antibiotic as per Internal Medicine and ID recommendations. will dc asa tomorrow. Thank you for this referral. I will Continue to follow along with you. TAMERA BAILEY MD [facility] Problems: TAMERA BAILEY MD Feb 18, 2017 08:22
[2017-02-18] MEDS: INSULIN ASPART [NOVOLOG] 3 ML PEN SC SCH (08:37)
[2017-02-18] MEDS: TOLTERODINE 2 MG TAB PO SCH (08:56)
[2017-02-18] MEDS: LUBIPROSTONE 24 MCG CAP PO SCH (08:56)
[2017-02-18] MEDS: ASPIRIN 81 MG TAB PO SCH (08:56)
[2017-02-18] MEDS: SEVELAMER 800 MG TAB PO SCH (08:57)
[2017-02-18] MEDS: SENNA TAB PO SCH (08:57)
[2017-02-18] MEDS: oxyCODONE 5 MG TAB PO SCH (08:57)
[2017-02-18] MEDS: METOPROLOL 100 MG TAB PO SCH (08:58)
[2017-02-18] MEDS: POLYETHYLENE GLYCOL 17 GM PACKET PO SCH (09:01)
[2017-02-18] MEDS: SERTRALINE 50 MG TAB PO SCH (09:02)
[2017-02-18] MEDS: AMLODIPINE 10 MG TAB PO SCH (09:02)
[2017-02-18] MEDS: METOCLOPRAMIDE 10 MG TAB PO SCH (09:03)
[2017-02-18] MEDS: HEPARIN 5,000 UNIT/0.5 ML VIAL SC SCH (09:08)
--- NOTE | 2017-02-18 11:57 | CONS ---
Date/Time of Note Date/Time of Note DATE: 02/18/17 TIME: 11:56 Consult Date/Type/Reason Admit Date/Time Feb 04, 2017 at 20:01 Type of Consultation: cardiology Subjective SUBJECTIVE: The patient is stable. No events overnight. No fevers, chills, nausea, vomiting. OBJECTIVE: HEENT: Head is normocephalic. NECK: Supple. HEART: Regular rate. LUNGS: Show diminished sounds at base. ABDOMEN: Soft, nontender to palpation without rebound or guarding. EXTREMITIES: Negative for clubbing, cyanosis, edema. DERMATOLOGIC: No rashes. MUSCULOSKELETAL: No joint effusions. NEUROLOGIC: No change in exam. Objective Vital Signs Date Time Temp Pulse Resp B/P Pulse Ox O2 Delivery O2 Flow Rate FiO2 02/18/17 07:30 98.5 72 20 158/73 96 02/17/17 02:00 Room Air Intake and Output 02/17/17 02/17/17 02/18/17 15:00 23:00 07:00 Intake Total 1320 ml 750 ml Output Total 650 ml Balance 670 ml 750 ml Results/Medications Result Diagram: 02/15/17 0644 02/15/17 0643 Results 24 hrs Laboratory Tests Test 02/17/17 12:25 02/17/17 17:27 02/17/17 20:49 02/18/17 06:06 Bedside Glucose 136 202 111 Prothrombin Time 18.5 H Prothrombin Time Ratio 1.4 INR International Normalized Ratio 1.53 Random Vancomycin Level 10.7 Test 02/18/17 08:13 Bedside Glucose 118 Medications Current Medications Diagnostic Test (Pha) (Accu-Chek) 1 ea 02 XX ; Start 02/05/17 at 02:00 Amlodipine Besylate (Norvasc) 10 mg DAILY PO Last administered on 02/18/17 09 :02; Admin Dose 10 MG; Start 02/05/17 at 09:00 Acetaminophen/ Hydrocodone Bitart ([place] (10/325)) 1 tab Q4H PRN PO 4-6 PAIN Last administered on 02/18/17 05:52; Admin Dose 1 TAB; Start 02/04/17 at 21:00 Aspirin (Aspirin) 162 mg DAILY PO Last administered on 02/18/17 08:56; Admin Dose 162 MG; Start 02/05/17 at 09:00; Stop 02/20/17 at 02:00 Atorvastatin Calcium (Lipitor) 80 mg QHS PO Last administered on 02/17/17 20: 53; Admin Dose 80 MG; Start 02/04/17 at 21:00 Bisacodyl (Dulcolax Supp) 10 mg Q24H PRN [place] CONSTIPATION; Start 02/04/17 at 21: 00 Clonidine (Catapres) 0.1 mg Q6H PRN PO ELEVATED SYSTOLIC BP Last administered on 02/08/17 06:23; Admin Dose 0.1 MG; Start 02/04/17 at 21:00 Docusate Sodium (Colace) 100 mg QHS PRN PO CONSTIPATION Last administered on 08:46; Admin Dose 100 MG; Start 02/04/17 at 21:00 Heparin Sodium (Porcine) (Heparin (5000 Units/0.5 ml)) 5,000 unit BID SC Last administered on 02/18/17 09:08; Admin Dose 5,000 UNIT; Start 02/04/17 at 21:00 Hydralazine HCl (Apresoline) 75 mg TID PO Last administered on 02/18/17 09:02 ; Admin Dose 75 MG; Start 02/04/17 at 21:00 Lactulose (Enulose) 20 gm DAILY PRN PO CONSTIPATION; Start 02/04/17 at 21:00 Lidocaine (Lidoderm) 1 patch QPM TD Last administered on 02/17/17 20:54; Admin Dose 1 PATCH; Start 02/04/17 at 21:00 Lubiprostone (Amitiza) 24 mcg BID PO Last administered on 02/18/17 08:56; Admin Dose 24 MCG; Start 02/04/17 at 21:30 Metoclopramide HCl (Reglan) 5 mg BID PO Last administered on 02/18/17 09:03; Admin Dose 5 MG; Start 02/04/17 at 21:00 Metoprolol Tartrate (Lopressor) 100 mg BID PO Last administered on 02/18/17 08:58; Admin Dose 100 MG; Start 02/04/17 at 21:00 Morphine Sulfate (morphine) 2 mg Q3H PRN IV PAIN LEVEL 6-10 Last administered on 02/12/17 14:57; Admin Dose 2 MG; Start 02/04/17 at 21:00 Naloxone HCl (Narcan) 0.2 mg Q2M PRN IV RR 8 BREATHS/MIN OR LESS; Start at 21:00 Nitroglycerin (Nitroglycerin 2% Oint) 1 inch Q6 TD Last administered on 05:53; Admin Dose 1 INCH; Start 02/05/17 at 00:00 Ondansetron HCl (Zofran Inj) 4 mg Q6H PRN IV NAUSEA AND/OR VOMITING; Start at 21:00 Pantoprazole (Protonix Tab) 40 mg DAILY@06 PO Last administered on 02/18/17 05:52; Admin Dose 40 MG; Start 02/05/17 at 06:00 Polyethylene Glycol (Miralax) 17 gm BID PO Last administered on 02/18/17 09: 01; Admin Dose 17 GM; Start 02/04/17 at 21:00 IV Flush (NS 10 ml) 10 ml PRN PRN IV IV PROTOCOL Last administered on 00:41; Admin Dose 10 ML; Start 02/04/17 at 21:30 Senna (Senokot) 1 tab DAILY PO Last administered on 02/18/17 08:57; Admin Dose 1 TAB; Start 02/05/17 at 09:00 Sertraline HCl (Zoloft) 50 mg DAILY PO Last administered on 02/18/17 09:02; Admin Dose 50 MG; Start 02/05/17 at 09:00 Sodium Biphosphate/ Sodium Phosphate (Fleet Enema) 133 ml DAILY PRN [place] CONSTIPATION; Start 02/04/17 at 21:30 Tolterodine Tartrate (Detrol) 2 mg BID PO Last administered on 02/18/17 08:56 ; Admin Dose 2 MG; Start 02/04/17 at 21:15 Zolpidem Tartrate (Ambien) 5 mg HS PRN PO INSOMNIA Last administered on 21:00; Admin Dose 5 MG; Start 02/04/17 at 21:30 Miscellaneous Information 1 ea NOTE XX ; Start 02/04/17 at 21:30 Glucose (Glutose) 15 gm Q15M PRN PO DECREASED GLUCOSE; Start 02/04/17 at 21:30 Glucose (Glutose) 22.5 gm Q15M PRN PO DECREASED GLUCOSE Last administered on 15:41; Admin Dose 22.5 GM; Start 02/04/17 at 21:30 Dextrose (D50w Syringe) 25 ml Q15M PRN IV DECREASED GLUCOSE; Start 02/04/17 at 21:30 Dextrose (D50w Syringe) 50 ml Q15M PRN IV DECREASED GLUCOSE; Start 02/04/17 at 21:30 Glucagon (Glucagen) 1 mg Q15M PRN IM DECREASED GLUCOSE; Start 02/04/17 at 21:30 Glucose (Glutose) 15 gm Q15M PRN BUCCAL DECREASED GLUCOSE; Start 02/04/17 at 21 :30 Oxycodone HCl (Roxicodone) 5 mg TID PO Last administered on 02/18/17 08:57; Admin Dose 5 MG; Start 02/12/17 at 13:00 Levofloxacin (Levaquin) 250 mg Q48H PO Last administered on 02/17/17 13:17; Admin Dose 250 MG; Start 02/15/17 at 13:30 Warfarin Sodium (Coumadin) 8 mg DAILY@17 PO ; Start 02/19/17 at 17:00 Warfarin Sodium (Coumadin) 10 mg ONCE@17 ONCE PO ; Start 02/18/17 at 17:00; Stop 02/18/17 at 17:01 Assessment/Plan Chief Complaint/Hosp Course ASSESSMENT AND PLAN: 1. Diskitis L5-S1 radiculopathy. The patient is status post transforaminal lumbar interbody fusion. Patient is currently stable. Continue antibiotic therapy until 03/05 2. Chronic back pain, improving. Continue current pain regimen. 3. End-stage renal disease. Plan for dialysis tomorrow 4. Hypertension. Continue current blood pressure regimen. 5. Atrial fibrillation. The patient is on Coumadin. INR is not at goal. 6. Status post transient ischemic attack. 7. Anemia. Monitor hemoglobin and hematocrit levels. 8. Mineral bone disorder, monitor calcium and phosphorus levels. 9. Diabetes. Continue Accu-Cheks, insulin sliding scale. Problems: KATELYN JONES MD Feb 18, 2017 11:57
[2017-02-18] MEDS ORDERED: WARFARIN 10 MG TAB PO ONE (17:00)
--- NOTE | 2017-02-19 07:11 | PN ---
DATE: 02/17/2017 PSYCHOLOGY -- INDIVIDUAL SESSION -- [id number] This is a followup on a patient who was seen last week. The patient was seen just after she had fin ished walking around the unit. The patient's mood is brighter because she sees herself as making pr ogress. The patient is happy that she is able to start to make progress physically and is now to ab le to walk. before she was unable to do almost anything. The patient is positive about her ability to continue to improve. Dictated By: DOMENICO LICONA PHD RK/MERI Conf#: [id number] DID#: [id number]
--- NOTE | 2017-02-19 07:35 | DS ---
Date/Time of Note Date/Time of Note DATE: 02/19/17 TIME: 07:33 Discharge Summary Admission/Discharge Info Admit Date/Time Feb 04, 2017 at 20:01 Discharge Date/Time Feb 18, 2017 at 11:45 Discharge Diagnosis 1.Other orthopedic disorder with lumbar radiculopathy and diskitis, status post transforaminal interbody fusion. 2. End-stage renal disease, on hemodialysis. 3. Diabetes mellitus. 4. Diabetic nephropathy. 5. Coronary artery disease. 6. Hyperlipidemia. 7. Anemia. 8. Paroxysmal atrial fibrillation. 9. Mineral bone disease. 10. Improvements in self care and mobility. Patient Condition: Good Hospital Course DISCHARGE Patient was admitted for comprehensive interdisciplinary acute rehabilitation. Patient made steady functional gains and improved from a mod level to a Modified Independent level for self care and mobility, including ambulating over 150 feet with the use of a front wheeled walker. Patient is being discharged home with recommendations for home health PT and OT follow up. She will also receive HH rn. She will have outpatient dialysis. DME recommendations: FWW; BSC; Shower Chair Patient will follow up with PMD upon DC. Home Meds Active Scripts Sevelamer Hcl* (Renagel*) 800 Mg Tab, 800 MG PO WITH MEALS for 30 Days, TAB Prov:CHAMP PETER 09/06/15 Pantoprazole* (Pantoprazole*) 40 Mg Tabec, 40 MG PO DAILY@06 for 30 Days Prov:CHAMP PETER 09/06/15 Metoprolol Tartrate* (Lopressor*) 100 Mg Tab, 100 MG PO BID for 30 Days, TAB Prov:CHAMP PETER 09/06/15 Reported Medications Zinc Sulfate* (Zinc Sulfate*) 220 Mg Tablet, 220 MG PO DAILY, TAB 01/12/17 Cholecalciferol* (Vitamin D*) 400 Unit Tablet, 400 UNIT PO DAILY, TAB 01/12/17 Ascorbic Acid* (Vitamin C*) 500 Mg Capsule.sa, 500 MG PO DAILY, CAP 01/12/17 Acetaminophen* (Acetaminophen*) 500 MG Extra Strength Tablet, 1000 MG PO Q6H Y for PAIN AND OR ELEVATED TEMP, TAB 01/12/17 Sennosides* (Senna Lax*) 8.6 Mg Tablet, 1 TAB PO DAILY, TAB 01/12/17 Methocarbamol* (Robaxin*) 500 Mg Tab, 500 MG PO Q8 Y for MUSCLE SPASMS, TAB 01/12/17 Oxycodone Hcl* (Oxycontin*) 10 Mg Tab.sr.12h, 10 MG PO Q8, TAB 01/12/17 Amlodipine Besylate* (Norvasc*) 5 Mg Tablet, 5 MG PO DAILY, TAB 01/12/17 Gabapentin* (Gabapentin*) 300 Mg Capsule, 300 MG PO QHS, #60 CAP 01/12/17 Multivitamins* (Theragran*) 1 Tab Tab, 1 TAB PO DAILY, TAB 01/12/17 Polyethylene Glycol* (Miralax*) 17 Gm Powd.pack, 17 GM PO DAILY Y for CONSTIPATION, #30 PACKET 01/12/17 Lactulose* (Lactulose*) 20 Gm/30 Ml Solution, 20 GM PO DAILY Y for CONSTIPATION , ML 01/12/17 Bisacodyl* (Bisacodyl*) 10 Mg Supp, 10 MG ME Q24H Y for CONSTIPATION, SUPP 01/12/17 Losartan Potassium* (Losartan Potassium*) 50 Mg Tablet, 50 MG PO DAILY, TAB 01/12/17 Docusate Sodium* (Colace*) 100 Mg Capsule, 100 MG PO QHS Y for CONSTIPATION, # 30 CAP 01/12/17 Vitamin B Complex (B Complex # 1) 1 Each Tablet, 1 EACH PO DAILY, TAB 01/12/17 Diphenhydramine Hcl* (Diphenhydramine Hcl*) 25 Mg Capsule, 25 MG PO Q6 Y for ITCHING, CAP 01/12/17 Albuterol Sulfate* (Albuterol Sulfate* Neb) 0.083%-3 Ml Neb, 2.5 MG NEB Q6 Y for WHEEZING AND SOB, #30 VIAL 01/12/17 Hydralazine Hcl* (Hydralazine Hcl*) 50 Mg Tab, 50 MG PO TID, #90 TAB 06/24/16 Sertraline Hcl* (Zoloft*) 50 Mg Tablet, 50 MG PO DAILY, #30 TAB 06/24/16 Atorvastatin* (Atorvastatin*) 80 Mg Tablet, 80 MG PO QHS, #30 TAB 06/24/16 Primary Care Provider Not On Staff Doctor Pending Labs Laboratory Tests Test 02/18/17 08:13 Bedside Glucose 118mg/dL (70-220) ALINE CORREIA MD Feb 19, 2017 07:35
[2017-02-19] MEDS ORDERED: WARFARIN 2 MG TAB PO SCH (17:00)
== END 2017-02-18 11:45 | disposition home health service (06) | DRG 559 ==
LOC: VRC 20:01
PROVIDERS: ADMIT Physical Medicine & Rehabilitation; ATTEND Internal Medicine
PROC: F08Z0ZZ Bathing/Showering Techniques Treatment (ICD-10-PCS; principal; 2017-02-04)
PROC: F07Z5ZZ Bed Mobility Treatment (ICD-10-PCS; 2017-02-04)
DX: Z47.89 Encounter for other orthopedic aftercare (principal); N18.6 End stage renal disease; E11.21 Type 2 diabetes mellitus with diabetic nephropathy; Z99.2 Dependence on renal dialysis; M46.47 Discitis, unspecified, lumbosacral region; E11.22 Type 2 diabetes mellitus with diabetic chronic kidney disease; M54.16 Radiculopathy, lumbar region; I25.10 Atherosclerotic heart disease of native coronary artery without angina pectoris; E78.5 Hyperlipidemia, unspecified; D64.9 Anemia, unspecified; I48.91 Unspecified atrial fibrillation; M89.9 Disorder of bone, unspecified; G89.29 Other chronic pain; M54.9 Dorsalgia, unspecified; J44.9 Chronic obstructive pulmonary disease, unspecified; E83.42 Hypomagnesemia; Z79.01 Long term (current) use of anticoagulants; Z86.73 Personal history of transient ischemic attack (TIA), and cerebral infarction without residual deficits
CPT/HCPCS: 71020; 80048; 80053; 80202; 81001; 82962; 83735; 84100; 85025; 85610; 86704; 86709; 86803; 87081; 87086; 87340; 90686; 90935; 97110; 97112; 97116; 97150; 97163; 97167; 97530; 97535; 97542; J0696; J1644; J1815; J2270; J3370; J3475; J7050; Q4081

== ENCOUNTER 2017-04-29 12:19 | Emergency (ER) | payer BC ==
[~2017-04-29] VITALS: Wt 81.8 kg
--- NOTE | 2017-04-29 13:18 | ERD ---
ER Documentation Chief Complaint Chief Complaint back pain could not complete dialysis did 1hr, wants medication refill HPI 51-year-old woman presents with low back pain and hypertension after receiving about an hour of hemodialysis. She has had prior back surgery and states she has had postoperative pain 3 months. She states she uses Tylenol with codeine at home multiple times on a daily basis to help control her back pain. She has not yet followed up with her back surgeon or a pain specialist. She denies chest pain or shortness of breath, no fevers or chills, no weight loss, no blood per rectum or melena, no vomiting or diarrhea. Patient states she ran out of her opioid analgesics, and she does not have a history of opioid allergies. ROS All systems reviewed and are negative except as per history of present illness. Medications Home Meds Active Scripts Acetaminophen with Codeine (Acetaminophen-Cod #3 Tablet) 1 Each Tablet, 1 TAB PO TID for PAIN, #20 TAB Prov:MALIK HOPKINS MD 04/29/17 Sevelamer Hcl* (Renagel*) 800 Mg Tab, 800 MG PO WITH MEALS for 30 Days, TAB Prov:CHAMP PETER 09/06/15 Pantoprazole* (Pantoprazole*) 40 Mg Tabec, 40 MG PO DAILY@06 for 30 Days Prov:CHAMP PETER 09/06/15 Metoprolol Tartrate* (Lopressor*) 100 Mg Tab, 100 MG PO BID for 30 Days, TAB Prov:CHAMP PETER 09/06/15 Reported Medications Zinc Sulfate* (Zinc Sulfate*) 220 Mg Tablet, 220 MG PO DAILY, TAB 01/12/17 Cholecalciferol* (Vitamin D*) 400 Unit Tablet, 400 UNIT PO DAILY, TAB 01/12/17 Ascorbic Acid* (Vitamin C*) 500 Mg Capsule.sa, 500 MG PO DAILY, CAP 01/12/17 Acetaminophen* (Acetaminophen*) 500 MG Extra Strength Tablet, 1000 MG PO Q6H Y for PAIN AND OR ELEVATED TEMP, TAB 01/12/17 Sennosides* (Senna Lax*) 8.6 Mg Tablet, 1 TAB PO DAILY, TAB 01/12/17 Methocarbamol* (Robaxin*) 500 Mg Tab, 500 MG PO Q8 Y for MUSCLE SPASMS, TAB 01/12/17 Oxycodone Hcl* (Oxycontin*) 10 Mg Tab.sr.12h, 10 MG PO Q8, TAB 01/12/17 Amlodipine Besylate* (Norvasc*) 5 Mg Tablet, 5 MG PO DAILY, TAB 01/12/17 Gabapentin* (Gabapentin*) 300 Mg Capsule, 300 MG PO QHS, #60 CAP 01/12/17 Multivitamins* (Theragran*) 1 Tab Tab, 1 TAB PO DAILY, TAB 01/12/17 Polyethylene Glycol* (Miralax*) 17 Gm Powd.pack, 17 GM PO DAILY Y for CONSTIPATION, #30 PACKET 01/12/17 Lactulose* (Lactulose*) 20 Gm/30 Ml Solution, 20 GM PO DAILY Y for CONSTIPATION , ML 01/12/17 Bisacodyl* (Bisacodyl*) 10 Mg Supp, 10 MG OR Q24H Y for CONSTIPATION, SUPP 01/12/17 Losartan Potassium* (Losartan Potassium*) 50 Mg Tablet, 50 MG PO DAILY, TAB 01/12/17 Docusate Sodium* (Colace*) 100 Mg Capsule, 100 MG PO QHS Y for CONSTIPATION, # 30 CAP 01/12/17 Vitamin B Complex (B Complex # 1) 1 Each Tablet, 1 EACH PO DAILY, TAB 01/12/17 Diphenhydramine Hcl* (Diphenhydramine Hcl*) 25 Mg Capsule, 25 MG PO Q6 Y for ITCHING, CAP 01/12/17 Albuterol Sulfate* (Albuterol Sulfate* Neb) 0.083%-3 Ml Neb, 2.5 MG NEB Q6 Y for WHEEZING AND SOB, #30 VIAL 01/12/17 Hydralazine Hcl* (Hydralazine Hcl*) 50 Mg Tab, 50 MG PO TID, #90 TAB 06/24/16 Sertraline Hcl* (Zoloft*) 50 Mg Tablet, 50 MG PO DAILY, #30 TAB 06/24/16 Atorvastatin* (Atorvastatin*) 80 Mg Tablet, 80 MG PO QHS, #30 TAB 06/24/16 Allergies Allergies: Coded Allergies: codeine (Verified Allergy, Mild, 01/22/17) PMhx/Soc Paroxysmal atrial fibrillation, CVA, renal failure on dialysis, hypertension, COPD, chronic back pain, anemia, diabetes mellitus, opioid dependence Anesthesia Reaction: No Hx 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 Disorder: Yes (nueropaty) Hx Respiratory Disorders: Yes (COPD) Hx Miscellaneous Medical Probl: Yes (HD) Hx Alcohol Use: No Hx Substance Use: No Hx Tobacco Use: No Smoking Status: Never smoker FmHx Family History: No diabetes Physical Exam Vitals Vital Signs Date Time Temp Pulse Resp B/P Pulse Ox O2 Delivery O2 Flow Rate FiO2 04/29/17 14:42 72 20 201/101 97 Room Air 04/29/17 12:22 99.0 84 22 230/100 97 Physical Exam GENERAL: Well-developed, well-nourished, well-hydrated, mild discomfort, afebrile HEENT: Moist mucous membranes, pink conjunctiva, no cervical spine tenderness or step-off deformities, no goiter, no jaundice or icterus, extraocular movements intact without pain. No submandibular induration, and no pharyngeal erythema NEURO: Alert and oriented 3, cranial nerves II through XII intact bilaterally, pupils equal round reactive to light, no focal deficits or facial asymmetry, sensation intact distally Strength 5/5 in upper and lower extremities bilaterally CARDIAC: Regular rate and rhythm, no murmurs rubs or gallops LUNGS: Clear bilaterally no wheezing crackles or stridor ABDOMEN: Soft nontender, no guarding, no rigidity, no rebound, no psoas sign no obturator sign. Normoactive bowel sounds SKIN: Warm and dry to touch, no abrasions, contusions, or hematomas, no lacerations, no ecchymosis, no target lesions, and without ulcers EXTREMITIES: No clubbing cyanosis or edema, calves are bilaterally symmetrical, no Homans sign, no popliteal cord sign. Distal pulses equal and bilateral PSYCH: Normal affect without agitation or irritability Results 24 hrs Current Medications Medications (Trade) Dose Ordered Sig/Zenobia Route PRN Reason Start Time Stop Time Status Last Admin Dose Admin Hydromorphone HCl (Dilaudid) 1 mg ONCE STAT IM 04/29/17 13:22 04/29/17 13:23 DC 04/29/17 13:31 Nitroglycerin (Nitroglycerin (Sl Tab) 0.4 Mg) 1 tab ONCE ONCE SL 04/29/17 13:30 04/29/17 13:31 DC 04/29/17 13:29 Clonidine (Catapres) 0.1 mg ONCE ONCE PO 04/29/17 13:30 04/29/17 13:31 DC 04/29/17 13:28 Nitroglycerin (Nitroglycerin (Sl Tab) 0.4 Mg) 1 tab ONCE ONCE SL 04/29/17 15:30 04/29/17 15:31 DC 04/29/17 15:33 Hydralazine HCl (Apresoline) 20 mg ONCE ONCE IV 04/29/17 15:30 04/29/17 15:31 DC 04/29/17 15:33 Acetaminophen/ Hydrocodone Bitart ([place] (5/325)) 1 tab ONCE ONCE PO 04/29/17 16:00 04/29/17 16:01 Procedures/MDM IV line was established patient was placed on cardiac rehabilitation specialist rhythm strip revealed a sinus rhythm at about 80 bpm with upright P and T waves. Patient was afebrile I initially administered clonidine 0.1 mg p.o., nitroglycerin 0.4 mg sublingual for extreme hypertension with a diastolic over 100 mmHg, I also administered hydromorphone 1 mg IM 1 for complaints of back pain. Her examination including examination of the back and lumbar spine was normal. No signs of deformity or infection. Patient's blood pressure remained high so I establish an IV line and administered [place] 1 tablet p.o. for continued back pain, hydralazine 20 mg IV 1, and nitroglycerin 0.4 mg sublingual for continued hypertension. EKG performed, read by me: 85 bpm, normal sinus rhythm, normal axis, no acute ST segment changes, narrow QRS complex, with good R-wave progression in precordial leads. Critical Care: Time: 38 minutes, this was time separate from other billable procedures. Treatments/Evaluations: Close monitoring and treatment of unstable vital signs, cardiorespiratory, and neurologic status, while maintaining tight balance of fluid, respiratory, and cardiac interventions. Patient's low back pain improved after analgesics were administered and her blood pressure improved as well, systolic diastolic pressures fell about 30 points. I recommended she go back to her dialysis center to complete hemodialysis and follow-up with her PMD for continued outpatient management. I suspect patient also has opioid addiction and recommended she follow-up with her surgeon and a pain specialist. Differential diagnoses considered, included but not limited to acute coronary syndrome, pulmonary embolism, aortic dissection, abdominal aortic aneurysm, sepsis, stroke, meningitis, encephalitis, pneumonia, appendicitis, cholecystitis , bowel obstruction, pyelonephritis, nephrolithiasis, cystitis, as well as metabolic, hematologic, and electrolyte abnormalities. As well as abscess, cellulitis, fractures, and dislocations. Patient feels much better at this time, and vital signs are normal, symptoms have improved. I did give strict instructions to return to the ED if symptoms continue or worsen, patient will otherwise follow-up with primary care physician. Patient understood instructions and agreed to plan. Disclaimer: Inadvertent spelling and grammatical errors are likely due to EHR/ dictation software use and do not reflect on the overall quality of patient care. Also, please note that the electronic time recorded on this note does not necessarily reflect the actual time of the patient encounter. Departure Diagnosis: Primary Impression: Hypertensive urgency Additional Impressions: Acute exacerbation of chronic low back pain End stage kidney disease Condition: MALIK Lainez MD Apr 29, 2017 13:18
[2017-04-29] MEDS ORDERED: HYDROmorphONE 1 MG/ML SYG IM STA (13:22)
[2017-04-29] MEDS ORDERED: NITROGLYCERIN (SL) 0.4 MG TAB SL ONE ×2 (13:30→15:30)
[2017-04-29] MEDS ORDERED: ACET1TAB40 PO (15:10)
[2017-04-29] MEDS ORDERED: hydrALAzine 20 MG INJ IV ONE (15:30)
[2017-04-29 15:57] VITALS: BP 189/102; PULSE 90; RESP 16; TEMP 98.6
[2017-04-29] MEDS ORDERED: HYDROCODONE/APAP (5/325) TAB PO ONE (16:00)
== END 2017-04-29 16:07 | disposition home or self-care (01) ==
LOC: E/R 12:19
DX: I16.0 Hypertensive urgency (principal); I12.0 Hypertensive chronic kidney disease with stage 5 chronic kidney disease or end stage renal disease; N18.6 End stage renal disease; J44.9 Chronic obstructive pulmonary disease, unspecified; E11.22 Type 2 diabetes mellitus with diabetic chronic kidney disease; Z99.2 Dependence on renal dialysis
CPT/HCPCS: 96372; 96374; 99291; J0360; J1170

== ENCOUNTER 2017-09-28 23:36 | Inpatient (IN) | END 2017-10-08 19:30 | DRG 853 ==

== ENCOUNTER 2017-10-08 19:36 | Inpatient (IN) | END 2017-10-27 14:30 | disposition home health service (06) | DRG 949 ==

== ENCOUNTER 2017-11-17 16:45 | Inpatient (IN) | END 2017-11-24 18:03 | DRG 91 ==

== ENCOUNTER 2017-11-24 18:22 | Inpatient (IN) | END 2017-12-02 15:45 | disposition home health service (06) | DRG 91 ==

== ENCOUNTER 2017-12-11 13:22 | Emergency (ER) | END 2017-12-11 17:59 | disposition home or self-care (01) ==

== ENCOUNTER 2017-12-13 05:35 | Inpatient (IN) | END 2017-12-18 14:26 | disposition home health service (06) | DRG 70 ==

== ENCOUNTER 2017-12-21 15:41 | Inpatient (IN) | END 2017-12-24 16:20 | disposition home or self-care (01) | DRG 551 ==

== ENCOUNTER 2018-01-25 11:51 | Inpatient (IN) | END 2018-01-28 12:40 | disposition home or self-care (01) | DRG 698 ==

== ENCOUNTER 2018-04-01 08:39 | Emergency (ER) | END 2018-04-01 17:12 | disposition short-term general hospital (02) ==